=== PATIENT | male | born 1940 | race Caucasian/White ===

== ENCOUNTER → 2018-01-05 | Outpatient (CLI) | payer MEDICARE ==
[2018-01-05 09:44] LABS: ALT 67 U/L (21-72); AST 53 U/L (17-59); Cholesterol 145 mg/dL (<200); HDL Cholesterol 47 mg/dL (40-60); LDL Cholesterol,Calculated 80 mg/dL (0-99); Triglycerides 88 mg/dL (<150)
== END | disposition home or self-care (01) ==
LOC: LABWHC1 08:21
PROVIDERS: ATTEND Internal Medicine Cardiovascular Disease
DX: E78.2 Mixed hyperlipidemia (principal)
CPT/HCPCS: 36415; 80061; 84450; 84460

== ENCOUNTER 2018-04-04 09:31 | Inpatient (IN) | payer MEDICARE ==
[2018-04-04] MEDS ORDERED: SODIUM CHLORIDE 0.9% 1,000 ML IV ONE (09:46)
--- NOTE | 2018-04-04 09:50 | ED ---
General Adult HPI - General Stated complaint: ALTERED Time Seen by Provider: 04/04/18 09:36 Source: patient, EMS, RN notes reviewed Mode of arrival: EMS Limitations: no limitations - History of Present Illness Initial comments: Patient is a pleasant 77-year-old male presenting to the emergency department with concerns for not feeling well. Patient states he felt warm and had a headache since last night. Patient states symptoms continued this morning. Patient states when he got outside in the cold air he felt better and is now currently symptom-free. Patient has no complaints at this time. Patient is unclear whether or not he could've had a fever. Patient states his daughter believes that he may have. No cough or dyspnea. No abdominal pain. No dysuria. No upper respiratory symptoms. - Related Data Allergies Allergy/AdvReac Type Severity Reaction Status Date / Time No Known Allergies Allergy Verified 04/04/18 11:11 Review of Systems ROS Statement: Those systems with pertinent positive or pertinent negative responses have been documented in the HPI. ROS Other: All systems not noted in ROS Statement are negative. Constitutional: Reports: as per HPI Eyes: Denies: eye pain ENT: Denies: ear pain Respiratory: Denies: cough, dyspnea Cardiovascular: Denies: chest pain Endocrine: Denies: fatigue Gastrointestinal: Denies: abdominal pain Genitourinary: Denies: dysuria Musculoskeletal: Denies: back pain Skin: Denies: rash Neurological: Reports: as per HPI. Denies: weakness Past Medical History Past Medical History: Atrial Fibrillation, COPD, Hypertension History of Any Multi-Drug Resistant Organisms: None Reported Past Psychological History: No Psychological Hx Reported Smoking Status: Never smoker Past Alcohol Use History: None Reported Past Drug Use History: None Reported General Exam Limitations: no limitations General appearance: alert, in no apparent distress Head exam: Present: atraumatic Eye exam: Present: normal appearance, PERRL, EOMI. Absent: nystagmus ENT exam: Present: normal oropharynx Neck exam: Present: normal inspection Respiratory exam: Present: rhonchi Cardiovascular Exam: Present: irregular rhythm GI/Abdominal exam: Present: soft. Absent: tenderness Extremities exam: Present: normal inspection Neurological exam: Present: alert, CN II-XII intact. Absent: motor sensory deficit Expanded Neurological exam: Present: protecting the airway Patient oriented to: Present: person, place. Absent: time Speech: Present: fluid speech Cranial nerves: EOM's Intact: Normal Sensory exam: Upper Extremity Light Touch: Normal, Lower Extremity Light Touch: Normal Motor strength exam: RUE: 5, LUE: 5, RLE: 5, LLE: 5 Eye Response: (4) open spontaneously Motor Response: (6) obeys commands Verbal Response: (4) confused conversation Psychiatric exam: Present: normal affect, normal mood Skin exam: Present: normal color Course Vital Signs 04/04/18 09:45 Temperature 100.8 F H Pulse Rate 95 Respiratory 18 Rate Blood Pressure 100/67 O2 Sat by Pulse 94 L Oximetry EKG Findings - EKG Comments: EKG Findings:: A. fib with a rate of 107. QRS 82. QT 348. QTC 464. Left axis. Normal QRS. No acute ST change. Medical Decision Making - Medical Decision Making Patient does meet sepsis criteria diagnosed at 11:11 AM. Blood culture and lactic acid have been ordered. IV antibiotics will be ordered. Patient reevaluated. Patient and family updated. Case was discussed in detail with Dr. Solomon, who will admit for Dr. Lozoya. - Lab Data Result diagrams: 04/04/18 10:06 04/04/18 10:06 Lab Results 04/04/18 04/04/18 04/04/18 Range/Units 10:04 10:06 10:06 WBC 22.1 H (3.8-10.6) k/uL RBC 5.21 (4.30-5.90) m/uL Hgb 15.4 (13.0-17.5) gm/dL Hct 47.5 (39.0-53.0) % MCV 91.1 (80.0-100.0) fL MCH 29.6 (25.0-35.0) pg MCHC 32.5 (31.0-37.0) g/dL RDW 13.4 (11.5-15.5) % Plt Count 208 (150-450) k/uL Neutrophils % 89 % Lymphocytes % 4 % Monocytes % 5 % Eosinophils % 1 % Basophils % 0 % Neutrophils # 19.7 H (1.3-7.7) k/uL Lymphocytes # 0.9 L (1.0-4.8) k/uL Monocytes # 1.0 (0-1.0) k/uL Eosinophils # 0.2 (0-0.7) k/uL Basophils # 0.1 (0-0.2) k/uL PT (9.0-12.0) sec INR (<1.2) APTT (22.0-30.0) sec Sodium (137-145) mmol/L Potassium (3.5-5.1) mmol/L Chloride (98-107) mmol/L Carbon Dioxide (22-30) mmol/L Anion Gap mmol/L BUN (9-20) mg/dL Creatinine (0.66-1.25) mg/dL Est GFR (CKD-EPI)AfAm (>60 ml/min/1.73 sqM) Est GFR (CKD-EPI)NonAf (>60 ml/min/1.73 sqM) Glucose (74-99) mg/dL POC Glucose (mg/dL) 115 H (75-99) mg/dL POC Glu [employer] ID Amna Schultz Plasma Lactic Acid Sacha (0.7-2.0) mmol/L Calcium (8.4-10.2) mg/dL Total Bilirubin (0.2-1.3) mg/dL AST (17-59) U/L ALT (21-72) U/L Alkaline Phosphatase (38-126) U/L Total Creatine Kinase 136 (55-170) U/L CK-MB (CK-2) 2.2 (0.0-2.4) ng/mL CK-MB (CK-2) Rel Index 1.6 Troponin I <0.012 (0.000-0.034) ng/mL Total Protein (6.3-8.2) g/dL Albumin (3.5-5.0) g/dL 04/04/18 04/04/18 04/04/18 Range/Units 10:06 10:06 10:06 WBC (3.8-10.6) k/uL RBC (4.30-5.90) m/uL Hgb (13.0-17.5) gm/dL Hct (39.0-53.0) % MCV (80.0-100.0) fL MCH (25.0-35.0) pg MCHC (31.0-37.0) g/dL RDW (11.5-15.5) % Plt Count (150-450) k/uL Neutrophils % % Lymphocytes % % Monocytes % % Eosinophils % % Basophils % % Neutrophils # (1.3-7.7) k/uL Lymphocytes # (1.0-4.8) k/uL Monocytes # (0-1.0) k/uL Eosinophils # (0-0.7) k/uL Basophils # (0-0.2) k/uL PT 10.5 (9.0-12.0) sec INR 1.1 (<1.2) APTT 22.2 (22.0-30.0) sec Sodium 141 (137-145) mmol/L Potassium 4.6 (3.5-5.1) mmol/L Chloride 107 (98-107) mmol/L Carbon Dioxide 25 (22-30) mmol/L Anion Gap 9 mmol/L BUN 23 H (9-20) mg/dL Creatinine 0.96 (0.66-1.25) mg/dL Est GFR (CKD-EPI)AfAm 88 (>60 ml/min/1.73 sqM) Est GFR (CKD-EPI)NonAf 77 (>60 ml/min/1.73 sqM) Glucose 117 H (74-99) mg/dL POC Glucose (mg/dL) (75-99) mg/dL POC Glu [employer] Charger ID Plasma Lactic Acid Sacha 1.5 (0.7-2.0) mmol/L Calcium 9.5 (8.4-10.2) mg/dL Total Bilirubin 1.4 H (0.2-1.3) mg/dL AST 32 (17-59) U/L ALT 41 (21-72) U/L Alkaline Phosphatase 85 (38-126) U/L Total Creatine Kinase (55-170) U/L CK-MB (CK-2) (0.0-2.4) ng/mL CK-MB (CK-2) Rel Index Troponin I (0.000-0.034) ng/mL Total Protein 7.9 (6.3-8.2) g/dL Albumin 4.1 (3.5-5.0) g/dL - Radiology Data Radiology results: report reviewed (Computed tomography scan of brain reveals no acute process), image reviewed (Chest x-ray concerning for patchy multifocal pneumonia.) Critical Care Time Critical Care Time: Yes Total Critical Care Time: 32 Disposition Clinical Impression: Multifocal pneumonia, Sepsis Disposition: ADMITTED IP TO THIS HOSP Is patient prescribed a controlled substance at d/c from ED?: No Referrals: Enrique Lozoya MD [Primary Care Provider] - 1-2 days Decision Time: 11:12
[2018-04-04 10:06] LABS: Glucose,Whole Blood 115 mg/dL (75-99)
[2018-04-04 10:23] LABS: Basophils # (A) 0.1 k/uL (0-0.2); Basophils % (A) 0 %; Eosinophils # (A) 0.2 k/uL (0-0.7); Eosinophils % (A) 1 %; HCT 47.5 % (39.0-53.0); HGB 15.4 gm/dL (13.0-17.5); Lymphocytes # (A) 0.9 k/uL (1.0-4.8); Lymphocytes % (A) 4 %; MCH 29.6 pg (25.0-35.0); MCHC 32.5 g/dL (31.0-37.0); MCV 91.1 fL (80.0-100.0); Mean Platelet Volume 7.6; Monocytes % (A) 5 %; Neutrophils # (A) 19.7 k/uL (1.3-7.7); Neutrophils % (A) 89 %; Platelet Count 208 k/uL (150-450); RBC 5.21 m/uL (4.30-5.90); RDW 13.4 % (11.5-15.5); WBC 22.1 k/uL (3.8-10.6)
--- NOTE | 2018-04-04 10:30 | CT ---
EXAMINATION TYPE: CT brain wo con DATE OF EXAM: 04/04/2018 COMPARISON: 07/01/2010 HISTORY: Headache with AMS CT DLP: 1126.[address] of the brain was performed. The ventricles, basal cisterns and sulci overlying the cerebral convexities demonstrate mild enlargem ent. There is no evidence for intracranial hemorrhage or sulcal effacement. There is decreased attenuation about the periventricular white matter and deep white matter of both c erebral hemispheres, compatible with chronic small vessel ischemia. Differential diagnosis does inclu de demyelination. No mass effects are seen.No midline shift. Osseous calvarium is intact. If symptoms persist consider MRI. IMPRESSION: 1. Age related atrophic and chronic small vessel ischemic change without acute intracranial process s een at this time.
--- NOTE | 2018-04-04 10:35 | XR ---
EXAMINATION TYPE: XR chest 2V DATE OF EXAM: 04/04/2018 COMPARISON: 01/04/2015 HISTORY: Altered mental status TECHNIQUE: Frontal and lateral views of the chest are obtained. FINDINGS: There are new patchy opacities within the left midlung, left lower lung and right superhil ar region. There is partial visualization of cervical fusion device. Minimal multilevel degenerative changes of the spine are noted. Cardiomediastinal silhouette is within normal limits. Generalized oss eous demineralization is noted. IMPRESSION: New multifocal patchy opacities suspicious for multifocal pneumonia.
[2018-04-04 10:36] LABS: Albumin 4.1 g/dL (3.5-5.0); Calcium 9.5 mg/dL (8.4-10.2); Potassium 4.6 mmol/L (3.5-5.1); Total Bilirubin 1.4 mg/dL (0.2-1.3); Total Protein 7.9 g/dL (6.3-8.2)
[2018-04-04 10:51] LABS: INR 1.1 (<1.2); Partial Thromboplastin Time 22.2 sec (22.0-30.0); Prothrombin Time 10.5 sec (9.0-12.0)
[2018-04-04 10:53] LABS: Creatine Kinase 136 U/L (55-170)
[2018-04-04 11:09] LABS: Creatine Kinase MB 2.2 ng/mL (0.0-2.4); Troponin I <0.012 ng/mL (0.000-0.034)
[2018-04-04] MEDS ORDERED: PIPERACILLIN-TAZOBACTAM 3.375 GM in DEXTROSE/WATER 1 50ML.BAG IVPB STA (11:13)
[2018-04-04] MEDS ORDERED: PNEUMONIA PROTOCOL UTILIZED 1 EACH MISC PO PRN (11:13)
[2018-04-04] MEDS ORDERED: IPRATROPIUM-ALBUTEROL 3 ML NEB INHALATION PRN (11:13)
[2018-04-04] MEDS ORDERED: LEVOFLOXACIN 750MG-D5W PMX 750 MG in DEXTROSE/WATER 1 150ML.BAG IVPB STA (11:13)
[2018-04-04] MEDS: SODIUM CHLORIDE 0.9% 1,000 ML IV SCH ×3 (11:24→23:48)
[2018-04-04] MEDS ORDERED: SODIUM CHLORIDE 0.9% 1,000 ML IV STA ×2 (12:11)
[2018-04-04] MEDS ORDERED: SODIUM CHLORIDE 0.9% 500 ML 750 ML IV STA (12:11)
[2018-04-04] MEDS ORDERED: ACETAMINOPHEN TAB 325 MG TAB PO PRN (12:12)
[2018-04-04] MEDS ORDERED: ACETAMINOPHEN TAB 325 MG TAB PO STA (12:12)
--- NOTE | 2018-04-04 16:59 | P.CNPUL ---
History of Present Illness Consult date: 04/04/18 Reason for consult: COPD, pneumonia History of present illness: 77-year-old male patient, known history of COPD , coronary artery disease, chronic atrial fibrillation and hypertension, presented to the burst department feeling sick, not feeling well, feeling warm and having headaches and generalized weakness and altered mental status.. This symptoms started approximately 24-48 hours prior to him coming to the hospital. The patient denies having any significant cough or shortness of breath. No nausea. No vomiting. No abdominal pain. The burst department, the patient had temperature 100.8. He was slightly tachycardic with a heart rate of 95. Blood pressure was 100/67 and his pulse ox was 94% on room air. His EKG showed A. fib rhythm. White cell count was 22,000. Lactic acid level was at 1.5. Troponins was negative. Chest x-ray showed patchy but the pulmonary infiltrates mainly in the lingular segment in the right suprahilar area. Based on these findings, the patient was diagnosed having bilateral pneumonia and he was admitted to the hospital for IV antibiotics and the patient was given a combination of Levaquin and Zosyn. The patient currently is on room air with pulse ox of 97%. Heart rate is improved and is down to 80, A. fib rhythm and is breathing comfortably. CAT scan of the brain was also done for symptoms of headache and the patient was found to have age-related atrophy and small vessel ischemic changes of any acute abnormalities. In terms of his COPD, the patient is been followed up by Dr. Hatch on an outpatient basis. The patient is quite severe with an FEV1 of 45% of predicted based on a spirometer this was done in January 2015. He has been maintained on Breo Ellipta 1 inhalation a day. He also uses albuterol rescue inhaler when necessary. No recurrent pneumonias. No reported aspiration. Review of Systems Constitutional: Denies weight loss, denies fatigue, no night sweats, no fever, no chills. Cardiovascular: Denies palpitations, denied chest pain or chest pressure, denies any edema. GI: Denies nausea vomiting abdominal pain diarrhea or constipation. Genitourinary: Denies dysuria, frequency, or urgency. Neurologic: Denies weakness, confusion, dizziness, or numbness. Musculoskeletal: Denies weakness arthralgia or myalgia Skin: Denies any skin lesions or rashes. Endocrine: No polydipsia, no polyuria, no heat or cold sensitivity. Pulmonary: No cough wheezing or shortness of breath Psychiatric: No symptoms of active depression. Hematologic: No symptoms of clotting bleeding or bruising. Past Medical History Past Medical History: Atrial Fibrillation, Cancer, COPD, Hypertension Additional Past Medical History / Comment(s): COPD with an FEV1 of 45% of predicted, chronic atrial fibrillation, skin cancer involving the left cheek resected surgically, chronic back pain, chronic neck pain with radiculopathy and numbness and tingling involving the right upper extremity and the hand and the lower extremities, varicose veins bilaterally, hypertension, hyperlipidemia , history of childhood left eye injury with limited vision involving the left eye. 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 Past Anesthesia/Blood Transfusion Reactions: No Reported Reaction Smoking Status: Former smoker - Past Family History Father Additional Family Medical History / Comment(s): Father was a drinker. He at the age of 80yrs. Mother Family Medical History: No Reported History Additional Family Medical History / Comment(s): Mother was healthy and lived to b90yrs old. Daughter(s) Family Medical History: Cancer Additional Family Medical History / Comment(s): Nely had breast cancer. Brother(s) Family Medical History: Cancer Additional Family Medical History / Comment(s): Brother had melanoma skin cancer. Sister(s) Family Medical History: Cancer Additional Family Medical History / Comment(s): Sister had melanoma skin cancer. Medications and Allergies Home Medications Medication Instructions Recorded Confirmed Type Diltiazem HCl [Diltiazem 24Hr ER] 120 mg PO DAILY 04/04/18 04/04/18 History Eye Vitamin (Unknown) 1 tab PO AC-BID 04/04/18 04/04/18 History Fluticasone/Vilanterol [Breo 1 puff PO RT-DAILY 04/04/18 04/04/18 History Ellipta 200-25 Mcg INH] Lisinopril [Zestril] 10 mg PO BID 04/04/18 04/04/18 History Warfarin Sodium 5 mg PO TUTHSA 04/04/18 04/04/18 History Warfarin Sodium 7.5 mg PO SUMOWEFR 04/04/18 04/04/18 History Allergies Allergy/AdvReac Type Severity Reaction Status Date / Time No Known Allergies Allergy Verified 04/04/18 11:11 Physical Exam Vitals: Vital Signs Temp Pulse Resp BP Pulse Ox 04/04/18 15:00 80 18 115/69 97 04/04/18 14:30 16 111/77 98 04/04/18 14:00 99 16 117/70 98 04/04/18 13:30 98 18 96 04/04/18 13:05 110 H 18 111/97 97 04/04/18 13:00 100 18 106/62 97 04/04/18 12:04 105 H 18 98/59 98 04/04/18 12:00 98 18 85/57 97 04/04/18 11:42 98 18 96/49 97 04/04/18 11:33 99.0 F 04/04/18 11:13 109 H 18 110/70 98 04/04/18 09:45 100.8 F H 95 18 100/67 94 L Intake and Output 04/04/18 04/04/18 04/04/18 06:59 14:59 22:59 Other: Weight 90.718 kg Appearance, comfortable, not in acute respiratory distress HEENT: Anicteric sclerae, pink and moist conjunctivae. Extraocular movements intact, pupils are reactive to light they are round and equal. External inspection of ears and nose showed normal mucosa. Oral mucosa, soft and hard palate tongue and posterior pharynx are intact. Neck: Supple no neck masses, no JVD, no thyroid enlargement, no adenopathy. Lungs: Symmetrical expansion, clear breath sounds bilaterally, no rhonchi and no wheezes. CVS:irregular irregular rhythm, normal S1 and S2, no gallops, no murmur, no rubs. Abdomen: Soft, nontender, no megaly, no rebound, no guarding, positive bowel sounds. Extremities: No clubbing, no edema, no cyanosis, 2+ pulses in upper and lower extremities. Musculoskeletal: Muscle strength and tone normal. Neurologic: Alert and oriented 3, normal affect, no focal neurologic deficits. Psychiatric: Normal affect, normal mood, normal mental status examination. Skin: No rashes or ulcerations. Results - Laboratory Findings CBC and BMP: 10/25/18 10:06 04/04/18 10:06 PT/INR, D-dimer PT 10.5 sec (9.0-12.0) 04/04/18 10:06 INR 1.1 (<1.2) 04/04/18 10:06 Abnormal lab findings: Abnormal Labs 04/04/18 04/04/18 04/04/18 10:04 10:06 10:06 WBC 22.1 H Neutrophils # 19.7 H Lymphocytes # 0.9 L BUN 23 H Glucose 117 H POC Glucose (mg/dL) 115 H Total Bilirubin 1.4 H - Diagnostic Findings Chest x-ray: image reviewed Assessment and Plan Plan: Assessment 1 acute bilateral pneumonia involving the left midlung and right suprahilar area. This is a community-acquired pneumonia likely the patient with known history of COPD. This patient presented with nonspecific symptoms of altered mentation and generalized weakness and fevers. We are most likely dealing with a extrapulmonary physician of a pneumonia. No other obvious source of infection at this point in time. Mentation is improved. Hemodynamically stable. 2 COPD, severe at baseline with an FEV1 of 45% of predicted 3 acute leukocytosis secondary to above 4 acute febrile illness secondary to above 5 Hyperlipidemia 6 chronic atrial fibrillation, rate controlled and the patient is on warfarin with a subtherapeutic PT/INR 7 hypertension 8 skin cancers Plan Continue IV fluids. Continue current antibiotic coverage. Obtain sputum Gram stain and culture. Obtain blood culture. DuoNeb nebulized treatments around the clock. Resume outpatient evaluation with warfarin knowing that the patient' s PT/INR is subtherapeutic. We'll continue to follow.
[2018-04-04] MEDS ORDERED: WARFARIN 5 MG TAB PO SCH (18:00)
[2018-04-04] MEDS: PIPERACILLIN-TAZOBACTAM 3.375 GM in DEXTROSE/WATER 1 50ML.BAG IVPB SCH ×2 (19:45→23:53)
[2018-04-04 21:02] LABS: Appearance,Urine Clear (Clear); Bilirubin,Urine Negative (Negative); Blood,Urine Negative (Negative); Color,Urine Yellow; Glucose,Urine (UA) Negative (Negative); Ketones,Urine Negative (Negative); Leukocyte Esterase,Urine Negative (Negative); Nitrite,Urine Negative (Negative); Protein,Urine Trace (Negative); Specific Gravity,Urine 1.016 (1.001-1.035); Urobilinogen,Urine <2.0 mg/dL (<2.0)
[2018-04-04 21:15] LABS: Amphetamine Screen,Urine Not Detected (NotDetected); Barbiturate Screen,Urine Not Detected (NotDetected); Benzodiazepines Screen,Urine Not Detected (NotDetected); Cocaine Screen,Urine Not Detected (NotDetected); Methadone Screen, Urine Not Detected (NotDetected); Opiate Screen,Urine Not Detected (NotDetected); Oxycodone Screen, Urine Not Detected (NotDetected); Phencyclidine Screen,Urine Not Detected (NotDetected); Tricyclic Antidepressant,Urine Not Detected (NotDetected); Urn Cannabinoid Scrn Not Detected (NotDetected)
--- NOTE | 2018-04-04 23:24 | HP ---
HISTORY AND PHYSICAL DATE OF ADMISSION AND SERVICE: 04/04/2018. PRESENTING COMPLAINT: Not feeling well, tired. HISTORY OF PRESENTING COMPLAINT: A very pleasant 77-year-old patient whose chronic stable medical conditions include coronary artery disease, atrial fibrillation, hypertension. The patient had 1 or 2 days of symptoms of fever, heart rate going up, slightly confused, weak, tired, run down, feeling warm. Chest x-ray did confirm bilateral pneumonia for which she was started on IV antibiotics. 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 Bar. Also has got underlying chronic obstructive pulmonary disease. Normally able to get around the house. REVIEW OF SYSTEMS: CONSTITUTIONAL: Febrile, weak, tired. HEENT: None. RESPIRATORY: Some shortness of breath. CARDIOVASCULAR: None. GASTROINTESTINAL: None. GENITOURINARY: None. MUSCULOSKELETAL: Some pain in the joints. DERMATOLOGICAL: Scar on the left face from excision. PSYCHIATRY: Slightly forgetful. NEUROLOGIC: None. HEENT: Decreased vision in the left eye. PAST MEDICAL HISTORY: Atrial fibrillation, COPD, hypertension, atrial fibrillation, skin cancer of the left cheek resected, chronic back and neck pain with radiculopathy, varicose veins, hypertension, hyperlipidemia, decreased vision in the left eye. 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 SOCIAL HISTORY: The patient lives at home with his mentally challenged son. Per son's caregiver, son is rather functional. The patient does drive. The patient smoked for a very short period, for about 5 years, stopped in 1991. FAMILY HISTORY: Father was a drinker, at age of 80. HOME MEDICATIONS: 1. Eye vitamin 1 tablet with meals b.i.d. 2. Coumadin 5 mg on Sunday, , and Sunday and 7.5 mg on Sunday, Sunday, Sunday and Sunday. 3. Zestril 10 mg b.i.d. 4. Breo Ellipta 1 puff daily. 5. Cardizem 24 ER 120 mg p.o. daily. ALLERGIES: None. PHYSICAL EXAMINATION: VITAL SIGNS: On presentation, temperature 100.8, pulse 109, respirations 18, blood pressure 110/70, repeat of 85/57, pulse ox 98% on room air. GENERAL APPEARANCE: Average built, lying in bed, tired-appearing. EYES: Pupils are equal. Conjunctivae normal. HEENT: External appearance of ears and nose normal. Oral cavity normal. Surgical scar on the left cheek. NECK JVD not raised. Mass not palpable. LUNGS: Decreased breath sounds. Occasional crackles. CARDIOVASCULAR: First and second sounds normal. No edema. ABDOMEN: Soft, nontender. Liver and spleen not palpable. LYMPHATIC: No lymph nodes palpable in neck or axillae. PSYCHIATRY: Alert and oriented x3. Mood and affect normal. NEUROLOGICAL: Pupils equal. Cranial nerves grossly intact. Power and sensation grossly intact. INVESTIGATIONS: White count 22.1, hemoglobin 15.4, increased neutrophils, potassium 4.6, BUN 23, creatinine 0.96. Troponin less than 0.012. EKG tracing personally reviewed by me shows atrial fibrillation with a rate around 107. Chest x-ray film personally reviewed by me shows infiltrate in the left the left lung and right lower lung. ASSESSMENT: 1. Bilateral pneumonia, suspect gram-negative organism causing sepsis, present on admission. 2. Persistent atrial fibrillation, chronically on Coumadin with INR being subtherapeutic. 3. Chronic Coumadin monitoring. 4. Chronic obstructive pulmonary disease. 5. Essential hypertension. 6. 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 7. Hyperlipidemia. PLAN: Patient is started on IV Zosyn. Home medications are resumed. The patient be put on 7.5 mg Coumadin as his INR is nearly normal. In the meantime, we will also add Lovenox for bridging purposes given that he is actually in atrial fibrillation. Care was discussed with the patient. Pulmonary was consulted. MMODL / IJN: [id number] /
[2018-04-04] MEDS: ENOXAPARIN 80 MG/0.8 ML SYRINGE SQ SCH (23:48)
[2018-04-04] MEDS: LISINOPRIL 10 MG TAB PO SCH (23:48)
[2018-04-05 08:46] LABS: INR 1.4 (<1.2); Prothrombin Time 12.9 sec (9.0-12.0)
[2018-04-05] MEDS: SYMBICORT 160-4.5 MCG INHALER INHALATION SCH ×2 (08:51→21:00)
[2018-04-05] MEDS: PIPERACILLIN-TAZOBACTAM 3.375 GM in DEXTROSE/WATER 1 50ML.BAG IVPB SCH ×3 (09:17→23:19)
[2018-04-05] MEDS: DILTIAZEM CD 120 MG CAP.ER.24H PO SCH (09:18)
[2018-04-05] MEDS: LISINOPRIL 10 MG TAB PO SCH ×2 (09:19→21:24)
[2018-04-05] MEDS: ENOXAPARIN 80 MG/0.8 ML SYRINGE SQ SCH ×2 (09:19→21:24)
[2018-04-05] MEDS ORDERED: LEVOFLOXACIN 750MG-D5W PMX 750 MG in DEXTROSE/WATER 1 150ML.BAG IVPB SCH (11:00)
[2018-04-05] MEDS: SODIUM CHLORIDE 0.9% 1,000 ML IV SCH ×2 (12:27→17:58)
[2018-04-05 14:36] LABS: Basophils # (A) 0.1 k/uL (0-0.2); Basophils % (A) 1 %; Eosinophils # (A) 0.1 k/uL (0-0.7); Eosinophils % (A) 1 %; HCT 43.8 % (39.0-53.0); HGB 13.8 gm/dL (13.0-17.5); Lymphocytes # (A) 1.4 k/uL (1.0-4.8); Lymphocytes % (A) 12 %; MCH 29.4 pg (25.0-35.0); MCHC 31.6 g/dL (31.0-37.0); Mean Platelet Volume 9.2; Monocytes # (A) 0.7 k/uL (0-1.0); Monocytes % (A) 6 %; Neutrophils # (A) 9.4 k/uL (1.3-7.7); Neutrophils % (A) 80 %; Platelet Count 181 k/uL (150-450); RBC 4.72 m/uL (4.30-5.90); RDW 13.6 % (11.5-15.5); WBC 11.8 k/uL (3.8-10.6)
[2018-04-05 14:52] LABS: ALT 22 U/L (21-72); AST 43 U/L (17-59); Albumin 3.3 g/dL (3.5-5.0); Alkaline Phosphatase 74 U/L (38-126); Anion Gap 8 mmol/L; Blood Urea Nitrogen 15 mg/dL (9-20); Calcium 8.6 mg/dL (8.4-10.2); Carbon Dioxide 19 mmol/L (22-30); Chloride 113 mmol/L (98-107); Glucose 115 mg/dL (74-99); Potassium 4.3 mmol/L (3.5-5.1); Sodium 140 mmol/L (137-145); Total Bilirubin 1.4 mg/dL (0.2-1.3); Total Protein 6.7 g/dL (6.3-8.2)
--- NOTE | 2018-04-05 15:08 | P.CRDCN ---
History of Present Illness History of present illness: Mr. Rockwell is a pleasant 77-year-old male past medical history significant for persistent atrial fibrillation on mcc anticoagulation with coumadin, COPD, hypertension and dyslipidemia. He follows with Dr. Hernandez in the office. We've been asked to see him in consultation for atrial fibrillation. He presented to the hospital with symptoms of headache. He is currently being treated for pneumonia. He denies symptoms of chest pain, shortness of breath, dizziness or palpitations. Family member at the bedside said he seemed slightly confused to her lately. CT of his brain was obtained and reveals age-related atrophic and chronic small vessel changes without acute intracranial process. EKG reveals atrial fibrillation with mildly elevated ventricular response heart rate of 107. Chest x-ray reveals new multifocal patchy opacities suspicious for multifocal pneumonia Laboratory data reviewed, WBC 11.8 down from 22.1 on admission, hemoglobin 13.8 , platelets 181, INR 1.4, sodium 140, potassium 4.3, creatinine 0.57, cardiac enzymes negative 1. Current cardiac medications include diltiazem 120 mg daily, lisinopril 10 mg twice a day, Coumadin 5 mg Sunday and 7.5 mg Sunday. Most recent echocardiogram performed in the office November 2014 reveals preserved left ventricular systolic function. At the time of my exam: CONSTITUTIONAL: Denies fever. Denies chills. EYES: Denies blurred vision. Denies vision changes. Denies eye pain. EARS, NOSE, MOUTH & THROAT: Denies headache. Denies sore throat. Denies ear pain. CARDIOVASCULAR: Denies chest pain. Denies shortness of breath. Denies orthopnea. Denies PND. Denies palpitations. RESPIRATORY: Denies cough. GASTROINTESTINAL: Denies abdominal pain. Denies diarrhea. Denies constipation. Denies nausea. Denies vomiting. MUSCULOSKELETAL: Denies myalgias. INTEGUMENTARY: Denies pruitis. Denies rash. NEUROLOGIC: Denies numbness. Denies tingling. Denies weakness. PSYCHIATRIC: Denies anxiety. Denies depression. ENDOCRINE: Denies fatigue. Denies weight change. Denies polydipsia. Denies polyurina. GENITOURINARY: Denies burning, hematuria or urgency with micturation. HEMATOLOGIC: Denies history of anemia. Denies bleeding. Blood pressure 138/76 heart rate 105 afebrile maintaining oxygen saturation on room air GENERAL: This is a 77-year-old male in no apparent distress at the time of my examination. HEENT: Head is atraumatic, normocephalic. Pupils are equal, round. Sclerae anicteric. Conjunctivae are clear. Mucous membranes of the mouth are moist. Neck is supple. There is no jugular venous distention. No carotid bruit is heard. LUNGS: Clear to auscultation no wheezes, rales or rhonchi. No chest wall tenderness is noted on palpation or with deep breathing. HEART: Irregular rate and rhythm without murmurs, rubs or gallops. S1 and S2 heard. ABDOMEN: Soft, nontender. Bowel sounds are heard. No organomegaly noted. EXTREMITIES: No evidence of peripheral edema and no calf tenderness noted. VASCULAR: Radial and dorsalis pedis pulses palpated, no evidence of clubbing. NEUROLOGIC: Patient is awake, alert and oriented. ASSESSMENT Multifocal pneumonia Chronic persistent atrial fibrillation on long-term anticoagulation with Coumadin Hypertension Dyslipidemia Leukocytosis PLAN Ongoing medical management of pneumonia. Given his current state with leukocytosis and multifocal pneumonia Dr. Valencia does not recommend making any medication changes at this time. His rate has been fairly well-controlled. Follow-up with Dr. Hernandez upon discharge. Thank you kindly for this consultation. Nurse Practitioner note has been reviewed, I agree with a documented findings and plan of care. Patient was seen and examined. Past Medical History Past Medical History: Atrial Fibrillation, Cancer, COPD, Hypertension Additional Past Medical History / Comment(s): COPD with an FEV1 of 45% of predicted, chronic atrial fibrillation, skin cancer involving the left cheek resected surgically, chronic back pain, chronic neck pain with radiculopathy and numbness and tingling involving the right upper extremity and the hand and the lower extremities, varicose veins bilaterally, hypertension, hyperlipidemia , history of childhood left eye injury with limited vision involving the left eye. 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 Past Anesthesia/Blood Transfusion Reactions: No Reported Reaction Smoking Status: Former smoker - Past Family History Father Additional Family Medical History / Comment(s): Father was a drinker. He at the age of 80yrs. Mother Family Medical History: No Reported History Additional Family Medical History / Comment(s): Mother was healthy and lived to b90yrs old. Daughter(s) Family Medical History: Cancer Additional Family Medical History / Comment(s): Nely had breast cancer. Brother(s) Family Medical History: Cancer Additional Family Medical History / Comment(s): Brother had melanoma skin cancer. Sister(s) Family Medical History: Cancer Additional Family Medical History / Comment(s): Sister had melanoma skin cancer. Medications and Allergies Home Medications Medication Instructions Recorded Confirmed Type Diltiazem HCl [Diltiazem 24Hr ER] 120 mg PO DAILY 04/04/18 04/04/18 History Eye Vitamin (Unknown) 1 tab PO AC-BID 04/04/18 04/04/18 History Fluticasone/Vilanterol [Breo 1 puff PO RT-DAILY 04/04/18 04/04/18 History Ellipta 200-25 Mcg INH] Lisinopril [Zestril] 10 mg PO BID 04/04/18 04/04/18 History Warfarin Sodium 5 mg PO TUTHSA 04/04/18 04/04/18 History Warfarin Sodium 7.5 mg PO SUMOWEFR 04/04/18 04/04/18 History Allergies Allergy/AdvReac Type Severity Reaction Status Date / Time No Known Allergies Allergy Verified 04/04/18 11:11 Physical Exam Vitals: Vital Signs Temp Pulse Pulse Resp BP BP Pulse Ox 04/05/18 12:30 97 F L 105 H 16 138/76 96 04/05/18 11:13 96 04/05/18 08:00 18 04/05/18 05:29 98.1 F 92 18 119/65 94 L 04/04/18 21:48 96.4 F L 74 18 114/66 93 L 04/04/18 20:07 95 04/04/18 18:18 97.9 F 94 18 147/68 95 04/04/18 17:30 98.0 F 93 15 127/81 04/04/18 16:00 85 11 L 117/70 96 04/04/18 15:30 89 17 126/74 96 04/04/18 15:00 80 18 115/69 97 Intake and Output 04/04/18 04/05/18 04/05/18 22:59 06:59 14:59 Intake Total 1600 Balance 1600 Intake: Intake, IV Titration 1020 Amount Piperacillin-Tazobactam 3 50 .375 gm In Dextrose/Water 1 50ml.bag @ 12.5 mls/hr IVPB ONCE [facility] Rx#: [id number] Piperacillin-Tazobactam 3 50 .375 gm In Dextrose/Water 1 50ml.bag @ 12.5 mls/hr IVPB Q8HR [facility] Rx#: [id number] Sodium Chloride 0.9% 1, 680 000 ml @ 100 mls/hr IV . Q10H ONE Rx#:[id number] Sodium Chloride 0.9% 1, 240 000 ml @ 100 mls/hr IV . Q10H [facility] Rx#:[id number] Oral 580 Other: Voiding Method Toilet Toilet # Voids 2 3 3 Results 04/05/18 08:15 04/04/18 10:06 Coagulation 04/05/18 Range/Units 08:15 PT 12.9 H (9.0-12.0) sec CBC 04/05/18 Range/Units 08:15 WBC 11.8 H (3.8-10.6) k/uL RBC 4.72 (4.30-5.90) m/uL Hgb 13.8 (13.0-17.5) gm/dL Hct 43.8 (39.0-53.0) % Plt Count 181 (150-450) k/uL Current Medications Generic Name Dose Route Start Last Admin Trade Name Freq PRN Reason Stop Dose Admin Acetaminophen 650 mg 04/04/18 12:12 Tylenol Tab PO Q6HR PRN Fever and/ or Mild Pain Albuterol/Ipratropium 3 ml 04/04/18 11:13 Duoneb 0.5 Mg-3 Mg/3 Ml Soln INHALATION RT-Q4H PRN shortness of breath Budesonide/Formoterol Fumarate 2 puff 04/05/18 08:00 04/05/18 08:51 Symbicort 160-4.5 Mcg Inhaler INHALATION 2 puff RT-BID [facility]NA Administration Diltiazem HCl 120 mg 04/05/18 09:00 04/05/18 09:18 Cardizem Cd PO 120 mg DAILY [facility] Administration Enoxaparin Sodium 80 mg 04/04/18 23:00 04/05/18 09:19 Lovenox SQ 80 mg Q12HR [facility] Administration Piperacillin/Tazobactam/ 50 mls @ 12.5 mls/hr 04/04/18 16:00 04/05/18 09:17 Dextrose 3.375 gm/ IV Solution IVPB 04/14/18 16:01 12.5 mls/hr Q8HR [facility] Administration Sodium Chloride 1,000 mls @ 100 mls/hr 04/04/18 11:15 04/05/18 12:27 Saline 0.9% IV Not Given .Q10H [facility] Lisinopril 10 mg 04/04/18 22:15 04/05/18 09:19 Zestril PO 10 mg BID [facility]NA Administration Miscellaneous Information 1 each 04/04/18 11:13 Pneumonia Protocol Utilized PO ONCE PRN Per Protocol Warfarin Sodium 7.5 mg 04/05/18 18:00 Coumadin PO DAILY@1800 [facility] Intake and Output 04/04/18 04/05/18 04/05/18 22:59 06:59 14:59 Intake Total 1600 Balance 1600 Intake: Intake, IV Titration 1020 Amount Piperacillin-Tazobactam 3 50 .375 gm In Dextrose/Water 1 50ml.bag @ 12.5 mls/hr IVPB ONCE [facility] Rx#: [id number] Piperacillin-Tazobactam 3 50 .375 gm In Dextrose/Water 1 50ml.bag @ 12.5 mls/hr IVPB Q8HR [facility] Rx#: [id number] Sodium Chloride 0.9% 1, 680 000 ml @ 100 mls/hr IV . Q10H [facility] Rx#:[id number] Sodium Chloride 0.9% 1, 240 000 ml @ 100 mls/hr IV . Q10H [facility] Rx#:[id number] Oral 580 Other: Voiding Method Toilet Toilet # Voids 2 3 3 04/05/18 08:15 04/04/18 10:06
--- NOTE | 2018-04-05 15:18 | XR ---
EXAMINATION TYPE: XR chest 2V DATE OF EXAM: 04/05/2018 COMPARISON: 04/04/2018 HISTORY: Shortness of breath TECHNIQUE: Frontal and lateral views of the chest are obtained. FINDINGS: Scattered senescent parenchymal changes noted. Hyperinflation compatible with COPD. Biapical scarring persists. Mild patchy left perihilar infiltrate persists. Correlate for pneumonia. Heart size is stable. Mediastinal structures are stable and grossly unremarkable. No evidence for hilar prominence. Degenerative changes dorsal spine. IMPRESSION: 1. Mild patchy left perihilar infiltrate persists. Correlate for pneumonia.
--- NOTE | 2018-04-05 17:27 | P.PN ---
Subjective Progress Note Date: 04/05/18 77-year-old male patient, known history of COPD , coronary artery disease, chronic atrial fibrillation and hypertension, presented to the burst department feeling sick, not feeling well, feeling warm and having headaches and generalized weakness and altered mental status.. This symptoms started approximately 24-48 hours prior to him coming to the hospital. The patient denies having any significant cough or shortness of breath. No nausea. No vomiting. No abdominal pain. The burst department, the patient had temperature 100.8. He was slightly tachycardic with a heart rate of 95. Blood pressure was 100/67 and his pulse ox was 94% on room air. His EKG showed A. fib rhythm. White cell count was 22,000. Lactic acid level was at 1.5. Troponins was negative. Chest x-ray showed patchy but the pulmonary infiltrates mainly in the lingular segment in the right suprahilar area. Based on these findings, the patient was diagnosed having bilateral pneumonia and he was admitted to the hospital for IV antibiotics and the patient was given a combination of Levaquin and Zosyn. The patient currently is on room air with pulse ox of 97%. Heart rate is improved and is down to 80, A. fib rhythm and is breathing comfortably. CAT scan of the brain was also done for symptoms of headache and the patient was found to have age-related atrophy and small vessel ischemic changes of any acute abnormalities. In terms of his COPD, the patient is been followed up by Dr. Hatch on an outpatient basis. The patient is quite severe with an FEV1 of 45% of predicted based on a spirometer this was done in January 2015. He has been maintained on Breo Ellipta 1 inhalation a day. He also uses albuterol rescue inhaler when necessary. No recurrent pneumonias. No reported aspiration. Today's evaluation, the patient is being seen in follow-up on 04/05/2018. Still on antibiotic coverage. White cell count is up at 11.8. Renal function remains stable. Mental status is stable. No headache. No fever chills or night sweats. The blood cultures negative for now. Cardiology also evaluated this patient. Most recent echocardiogram from the office was within normal limits. Objective - Vital Signs Vital signs: Vital Signs Temp 97 F L 04/05/18 12:30 Pulse 105 H 04/05/18 12:30 Resp 16 04/05/18 12:30 BP 138/76 04/05/18 12:30 Pulse Ox 96 04/05/18 12:30 Intake & Output 04/04/18 04/05/18 04/05/18 18:59 06:59 18:59 Intake Total 1600 Balance 1600 Weight 90.718 kg Intake: Intake, IV Titration 1020 Amount Piperacillin-Tazobactam 3 50 .375 gm In Dextrose/Water 1 50ml.bag @ 12.5 mls/hr IVPB ONCE [facility] Rx#: [id number] Piperacillin-Tazobactam 3 50 .375 gm In Dextrose/Water 1 50ml.bag @ 12.5 mls/hr IVPB Q8HR [facility] Rx#: [id number] Sodium Chloride 0.9% 1, 680 000 ml @ 100 mls/hr IV . Q10H [facility] Rx#:[id number] Sodium Chloride 0.9% 1, 240 000 ml @ 100 mls/hr IV . Q10H [facility] Rx#:[id number] Oral 580 Other: Voiding Method Toilet Toilet # Voids 3 3 - Exam Appearance, comfortable, not in acute respiratory distress HEENT: Anicteric sclerae, pink and moist conjunctivae. Extraocular movements intact, pupils are reactive to light they are round and equal. External inspection of ears and nose showed normal mucosa. Oral mucosa, soft and hard palate tongue and posterior pharynx are intact. Neck: Supple no neck masses, no JVD, no thyroid enlargement, no adenopathy. Lungs: Symmetrical expansion, clear breath sounds bilaterally, no rhonchi and no wheezes. CVS:irregular irregular rhythm, normal S1 and S2, no gallops, no murmur, no rubs. Abdomen: Soft, nontender, no megaly, no rebound, no guarding, positive bowel sounds. Extremities: No clubbing, no edema, no cyanosis, 2+ pulses in upper and lower extremities. Musculoskeletal: Muscle strength and tone normal. Neurologic: Alert and oriented 3, normal affect, no focal neurologic deficits. Psychiatric: Normal affect, normal mood, normal mental status examination. Skin: No rashes or ulcerations. - Labs CBC & Chem 7: 04/05/18 08:15 04/05/18 08:15 Labs: Abnormal Lab Results - Last 24 Hours (Table) 04/04/18 04/05/18 04/05/18 Range/Units 20:50 08:15 08:15 WBC 11.8 H (3.8-10.6) k/uL Neutrophils # 9.4 H (1.3-7.7) k/uL PT 12.9 H (9.0-12.0) sec INR 1.4 H (<1.2) Chloride (98-107) mmol/L Carbon Dioxide (22-30) mmol/L Creatinine (0.66-1.25) mg/dL Glucose (74-99) mg/dL Total Bilirubin (0.2-1.3) mg/dL Albumin (3.5-5.0) g/dL Urine Protein Trace H (Negative) 04/05/18 Range/Units 08:15 WBC (3.8-10.6) k/uL Neutrophils # (1.3-7.7) k/uL PT (9.0-12.0) sec INR (<1.2) Chloride 113 H (98-107) mmol/L Carbon Dioxide 19 L (22-30) mmol/L Creatinine 0.57 L (0.66-1.25) mg/dL Glucose 115 H (74-99) mg/dL Total Bilirubin 1.4 H (0.2-1.3) mg/dL Albumin 3.3 L (3.5-5.0) g/dL Urine Protein (Negative) Microbiology - Last 24 Hours (Table) 04/04/18 10:06 Blood Culture - Preliminary Blood No Growth after 24 hours 04/04/18 20:50 Urine Culture - Preliminary Urine,Clean Catch Assessment and Plan Plan: Assessment 1 acute bilateral pneumonia involving the left midlung and right suprahilar area. This is a community-acquired pneumonia likely the patient with known history of COPD. This patient presented with nonspecific symptoms of altered mentation and generalized weakness and fevers. We are most likely dealing with a extrapulmonary physician of a pneumonia. No other obvious source of infection at this point in time. Mentation is improved. Hemodynamically stable. 2 COPD, severe at baseline with an FEV1 of 45% of predicted 3 acute leukocytosis secondary to above, improving 4 acute febrile illness secondary to above 5 Hyperlipidemia 6 chronic atrial fibrillation, rate controlled and the patient is on warfarin with a subtherapeutic PT/INR 7 hypertension 8 skin cancers Plan 2 new antibiotics. White cell count is improved. Repeat chest x-ray in the morning. We'll continue to follow. Cardiology is also on the case. INR is subtherapeutic and the patient is on 7.5 L of Coumadin and daily basis regarding his chronic atrial fibrillation. Rate is controlled for now.
[2018-04-05] MEDS ORDERED: WARFARIN 5 MG TAB PO SCH ×2 (18:00)
--- NOTE | 2018-04-05 21:58 | PN ---
PROGRESS NOTE DATE OF SERVICE: April 05, 2018. PRESENT COMPLAINT: Pneumonia. INTERVAL HISTORY: This patient presented with bilateral pneumonia with sepsis, atrial fibrillation, rate controlled, feels better, a bit better this afternoon. Did tolerate some diet. Lying in bed. Heart rate is controlled. REVIEW OF SYSTEMS: Done for constitutional, cardiovascular, GI, pulmonary; relevant findings as above. CURRENT MEDICATIONS: Reviewed that include IV Zosyn and Lovenox. EXAMINATION: VITAL SIGNS: Afebrile, pulse 105, respiration 16, blood pressure 130/76, pulse ox 96% on room air. GENERAL APPEARANCE: Lying in bed, looking a shade better. EYES: Pupils are equal. Conjunctivae normal. HEENT: External appearance of nose and ears normal. Oral cavity normal. Surgical scar on the left cheek. NECK: JVD not raised. Mass not palpable. RESPIRATORY: Effort increased. LUNGS: Decreased breath sounds. Occasional crackles. CARDIOVASCULAR: 1st and 2nd sounds normal. No edema. ABDOMEN: Soft, nontender. Liver and spleen not palpable. PSYCHIATRY: Alert and oriented x3. Mood and affect normal. INVESTIGATIONS: White count 11.8, INR 1.4, potassium 4.3, BUN 15, creatinine 0.57. Blood cultures negative. ASSESSMENT: 1. Bilateral pneumonia suspect gram-negative organism causing sepsis, present on admission with some improvement. 2. Persistent atrial fibrillation chronically on Coumadin with INR being subtherapeutic. 3. Chronic Coumadin monitoring. 4. Chronic obstructive pulmonary disease. 5. Essential hypertension. 6. 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 7. Hyperlipidemia. PLAN: Continue with current medication and treatment plan. Patient is started to respond. We will keep a close eye on the patient's INR. Go from there. MMODL / IJN: [id number] /
[2018-04-06] MEDS: SYMBICORT 160-4.5 MCG INHALER INHALATION SCH (08:29)
[2018-04-06] MEDS: SODIUM CHLORIDE 0.9% 1,000 ML IV SCH (09:47)
[2018-04-06] MEDS: DILTIAZEM CD 120 MG CAP.ER.24H PO SCH (09:48)
[2018-04-06] MEDS: PIPERACILLIN-TAZOBACTAM 3.375 GM in DEXTROSE/WATER 1 50ML.BAG IVPB SCH (09:48)
[2018-04-06] MEDS: ENOXAPARIN 80 MG/0.8 ML SYRINGE SQ SCH (09:48)
[2018-04-06] MEDS: LISINOPRIL 10 MG TAB PO SCH (09:48)
[2018-04-06 12:39] VITALS: BP 124/76; PULSE 85; RESP 16; TEMP 97.7
--- NOTE | 2018-04-06 15:05 | P.PN ---
Subjective Progress Note Date: 04/06/18 77-year-old male patient, known history of COPD , coronary artery disease, chronic atrial fibrillation and hypertension, presented to the burst department feeling sick, not feeling well, feeling warm and having headaches and generalized weakness and altered mental status.. This symptoms started approximately 24-48 hours prior to him coming to the hospital. The patient denies having any significant cough or shortness of breath. No nausea. No vomiting. No abdominal pain. The burst department, the patient had temperature 100.8. He was slightly tachycardic with a heart rate of 95. Blood pressure was 100/67 and his pulse ox was 94% on room air. His EKG showed A. fib rhythm. White cell count was 22,000. Lactic acid level was at 1.5. Troponins was negative. Chest x-ray showed patchy but the pulmonary infiltrates mainly in the lingular segment in the right suprahilar area. Based on these findings, the patient was diagnosed having bilateral pneumonia and he was admitted to the hospital for IV antibiotics and the patient was given a combination of Levaquin and Zosyn. The patient currently is on room air with pulse ox of 97%. Heart rate is improved and is down to 80, A. fib rhythm and is breathing comfortably. CAT scan of the brain was also done for symptoms of headache and the patient was found to have age-related atrophy and small vessel ischemic changes of any acute abnormalities. In terms of his COPD, the patient is been followed up by Dr. Hatch on an outpatient basis. The patient is quite severe with an FEV1 of 45% of predicted based on a spirometer this was done in January 2015. He has been maintained on Breo Ellipta 1 inhalation a day. He also uses albuterol rescue inhaler when necessary. No recurrent pneumonias. No reported aspiration. Today's evaluation, the patient is being seen in follow-up on 04/05/2018. Still on antibiotic coverage. White cell count is up at 11.8. Renal function remains stable. Mental status is stable. No headache. No fever chills or night sweats. The blood cultures negative for now. Cardiology also evaluated this patient. Most recent echocardiogram from the office was within normal limits. On 04/06/2018, the patient has no specific complaints. Resting comfortably in bed. No nausea vomiting or abdominal pain or diarrhea. White cell count has normalized. Chest x-ray was done and it showed left perihilar infiltrate which persists in the right lung findings are improved. Despite this pneumonia the patient is not having any respiratory distress. No cough or sputum production or congestion. No abdominal pain. No altered mentation. No headaches. Objective - Vital Signs Vital signs: Vital Signs Temp 97.7 F 04/06/18 12:38 Pulse 85 04/06/18 12:38 Resp 16 04/06/18 12:38 BP 124/76 04/06/18 12:38 Pulse Ox 97 04/06/18 12:38 Intake & Output 04/05/18 04/06/18 04/06/18 18:59 06:59 18:59 Intake Total 1600 1250 Balance 1600 1250 Intake: Intake, IV Titration 1020 1250 Amount Piperacillin-Tazobactam 3 50 .375 gm In Dextrose/Water 1 50ml.bag @ 12.5 mls/hr IVPB ONCE [facility] Rx#: [id number] Piperacillin-Tazobactam 3 50 100 .375 gm In Dextrose/Water 1 50ml.bag @ 12.5 mls/hr IVPB Q8HR [facility] Rx#: [id number] Sodium Chloride 0.9% 1, 680 000 ml @ 100 mls/hr IV . Q10H ONE Rx#:[id number] Sodium Chloride 0.9% 1, 240 1150 000 ml @ 100 mls/hr IV . Q10H [facility] Rx#:[id number] Oral 580 Other: Voiding Method Toilet Toilet # Voids 3 1 - Exam Appearance, comfortable, not in acute respiratory distress HEENT: Anicteric sclerae, pink and moist conjunctivae. Extraocular movements intact, pupils are reactive to light they are round and equal. External inspection of ears and nose showed normal mucosa. Oral mucosa, soft and hard palate tongue and posterior pharynx are intact. Neck: Supple no neck masses, no JVD, no thyroid enlargement, no adenopathy. Lungs: Symmetrical expansion, clear breath sounds bilaterally, no rhonchi and no wheezes. CVS:irregular irregular rhythm, normal S1 and S2, no gallops, no murmur, no rubs. Abdomen: Soft, nontender, no megaly, no rebound, no guarding, positive bowel sounds. Extremities: No clubbing, no edema, no cyanosis, 2+ pulses in upper and lower extremities. Musculoskeletal: Muscle strength and tone normal. Neurologic: Alert and oriented 3, normal affect, no focal neurologic deficits. Psychiatric: Normal affect, normal mood, normal mental status examination. Skin: No rashes or ulcerations. - Labs CBC & Chem 7: 04/05/18 08:15 04/05/18 08:15 Labs: Abnormal Lab Results - Last 24 Hours (Table) 04/05/18 Range/Units 08:15 Chloride 113 H (98-107) mmol/L Carbon Dioxide 19 L (22-30) mmol/L Creatinine 0.57 L (0.66-1.25) mg/dL Glucose 115 H (74-99) mg/dL Total Bilirubin 1.4 H (0.2-1.3) mg/dL Albumin 3.3 L (3.5-5.0) g/dL Microbiology - Last 24 Hours (Table) 04/04/18 10:06 Blood Culture - Preliminary Blood No Growth after 48 hours 04/05/18 10:00 Gram Stain - Preliminary Sputum 04/04/18 20:50 Urine Culture - Final Urine,Clean Catch Assessment and Plan Plan: Assessment 1 acute bilateral pneumonia involving the left midlung and right suprahilar area. This is a community-acquired pneumonia likely the patient with known history of COPD. This patient presented with nonspecific symptoms of altered mentation and generalized weakness and fevers. We are most likely dealing with a extrapulmonary physician of a pneumonia. No other obvious source of infection at this point in time. Mentation is improved. Hemodynamically stable. 2 COPD, severe at baseline with an FEV1 of 45% of predicted 3 acute leukocytosis secondary to above, improving 4 acute febrile illness secondary to above 5 Hyperlipidemia 6 chronic atrial fibrillation, rate controlled and the patient is on warfarin with a subtherapeutic PT/INR 7 hypertension 8 skin cancers Plan The patient will be going home on Augmentin 1 tablet twice a day for the next 5 days. Continue outpatient respiratory medication follow-up with Dr. Bar regarding pneumonia. The patient is currently on Breo Ellipta for maintenance and albuterol rescue inhaler less than is basis. Outpatient management of anticoagulation to achieve a stable PT/INR between 2 and 3.
[2018-04-06] MEDS ORDERED: WARFARIN 5 MG TAB PO SCH (18:00)
--- NOTE | 2018-04-07 09:27 | DS ---
DISCHARGE SUMMARY DATE OF ADMISSION: 04/04/2018 DATE OF DISCHARGE: 04/06/2018 FINAL DIAGNOSE: 1. Bilateral pneumonia suspect gram-negative organism causing sepsis, POA. 2. Persistent atrial fibrillation chronically on Coumadin. 3. Coumadin monitoring. 4. Chronic obstructive pulmonary disease. 5. Essential hypertension. 6. 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 7. Hyperlipidemia. HOSPITAL COURSE: This pleasant gentleman presented with pneumonia, given antibiotics. Doing much better at the time of discharge. Symptoms greatly improved. PHYSICAL EXAMINATION: Temperature 97.7, pulse 65, respiratory rate 16, blood pressure 120/76, pulse ox 97% on room air. Lungs: Improved air entry. CARDIOVASCULAR: Heart sounds irregular. LABS: White count 11.8, down from 22.1. INR was 1.4. Coumadin dose was increased. BUN 15, creatinine 0.57. CONSULTATION: Dr. Cifuentes from Pulmonary. DISCHARGE MEDICATIONS: 1. Cardizem ER 120 mg a day. 2. I-vitamin 1 tablet p.o. b.i.d. 3. Breo Ellipta 200/25 1 puff daily. 4. Zestril 10 mg p.o. b.i.d. 5. Augmentin 875 one tablet q.12; 10 tablets. 6. Coumadin 7.5 mg daily, new dose. FOLLOW UP: Dr. Bar in 1 week. Follow up with Dr. Lozoya in 3 days. The patient to have his INR checked in [address] Bar and Dr. Lozoya. MMODL / HERNANDON: [id number] /
== END 2018-04-06 14:05 | disposition home or self-care (01) | DRG 871 ==
LOC: EC 09:31 → 3NMEDONC 11:13
PROVIDERS: ADMIT Hospitalist; ATTEND Hospitalist
DX: A41.50 Gram-negative sepsis, unspecified (principal); J15.6 Pneumonia due to other Gram-negative bacteria; J44.0 Chronic obstructive pulmonary disease with (acute) lower respiratory infection; I48.2 Chronic atrial fibrillation; E78.5 Hyperlipidemia, unspecified; G89.29 Other chronic pain; M54.12 Radiculopathy, cervical region; I25.10 Atherosclerotic heart disease of native coronary artery without angina pectoris; I10 Essential (primary) hypertension; I83.93 Asymptomatic varicose veins of bilateral lower extremities; M54.2 Cervicalgia; M54.9 Dorsalgia, unspecified; H54.7 Unspecified visual loss; Z79.01 Long term (current) use of anticoagulants; Z79.51 Long term (current) use of inhaled steroids; Z79.899 Other long term (current) drug therapy; Z98.1 Arthrodesis status; Z85.828 Personal history of other malignant neoplasm of skin; Z87.891 Personal history of nicotine dependence; Z98.42 Cataract extraction status, left eye; Z98.41 Cataract extraction status, right eye; Z81.1 Family history of alcohol abuse and dependence; Z80.3 Family history of malignant neoplasm of breast; Z80.8 Family history of malignant neoplasm of other organs or systems
CPT/HCPCS: 36415; 70450; 71046; 80053; 80306; 81003; 82550; 82553; 83605; 84484; 85025; 85610; 85730; 87040; 87070; 87086; 87205; 93005; 94640; 94760; 96361; 96365; 96366; 96367; 99291

== ENCOUNTER → 2018-08-05 | Outpatient (CLI) | payer MEDICARE ==
[2018-08-05 18:37] LABS: LDL Cholesterol,Calculated 74.2 mg/dL (0.0-131.0); VLDL Calculation 13.8 mg/dL (5.00-40.00)
== END | disposition home or self-care (01) ==
LOC: LABWHC1 12:11
PROVIDERS: ATTEND Internal Medicine Cardiovascular Disease
DX: E78.2 Mixed hyperlipidemia (principal)
CPT/HCPCS: 36415; 80061; 84450; 84460

== ENCOUNTER → 2018-08-24 | Outpatient (CLI) | payer MEDICARE ==
[2018-08-24 16:31] LABS: ALT 40 U/L (10-49); AST 36 U/L (14-35)
== END | disposition home or self-care (01) ==
LOC: LABWHC1 10:25
PROVIDERS: ATTEND Internal Medicine Cardiovascular Disease
DX: E78.2 Mixed hyperlipidemia (principal)
CPT/HCPCS: 36415; 84450; 84460

== ENCOUNTER → 2019-12-24 | Outpatient (CLI) | payer MEDICARE ==
[2019-12-24 13:26] LABS: Basophils # (A) 0.1 k/uL (0-0.2); Basophils % (A) 1 %; Eosinophils # (A) 0.2 k/uL (0-0.7); Eosinophils % (A) 3 %; HCT 43.6 % (39.0-53.0); HGB 13.4 gm/dL (13.0-17.5); Lymphocytes # (A) 1.7 k/uL (1.0-4.8); Lymphocytes % (A) 21 %; MCH 28.2 pg (25.0-35.0); MCHC 30.8 g/dL (31.0-37.0); MCV 91.7 fL (80.0-100.0); Mean Platelet Volume 7.6; Monocytes # (A) 0.5 k/uL (0-1.0); Monocytes % (A) 7 %; Neutrophils # (A) 5.6 k/uL (1.3-7.7); Neutrophils % (A) 68 %; Platelet Count 303 k/uL (150-450); RBC 4.75 m/uL (4.30-5.90); RDW 14.2 % (11.5-15.5); WBC 8.3 k/uL (3.8-10.6)
[2019-12-24 13:29] LABS: African American GFR (CKD) >90 (>60 ml/min/1.73 sqM); Anion Gap 7 mmol/L; Blood Urea Nitrogen 10 mg/dL (9-20); Calcium 9.2 mg/dL (8.4-10.2); Carbon Dioxide 26 mmol/L (22-30); Chloride 105 mmol/L (98-107); Glucose 96 mg/dL (74-99); Non-African American GFR(CKD) >90 (>60 ml/min/1.73 sqM); Potassium 4.4 mmol/L (3.5-5.1); Sodium 138 mmol/L (137-145)
== END | disposition home or self-care (01) ==
LOC: LABPAT 10:29
PROVIDERS: ATTEND Urology
DX: Z01.818 Encounter for other preprocedural examination (principal); N20.0 Calculus of kidney; I10 Essential (primary) hypertension
CPT/HCPCS: 36415; 80048; 85025; 93005

== ENCOUNTER 2020-01-01 11:47 | Day surgery (SDC) | payer MEDICARE ==
--- NOTE | 2019-12-28 21:44 | P.GSHP ---
History of Present Illness H&P Date: 12/28/19 Chief Complaint: Low back pain The patient is a 79-year-old white male with an unremarkable urologic history. He has recently experienced low back pain 2 months. 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 A KUB x-ray shows a 14 mm right UPJ calculus. Alternative treatment options were reviewed with the patient in detail. He was made aware of the fact the stone clearance rates are poor following ESWL, and he instead prefers to undergo ureteroscopy with laser lithotripsy. - Constitutional Constitutional: Denies chills, Denies fever - Gastrointestinal Gastrointestinal: Denies nausea, Denies vomiting - Genitourinary (Female) Genitourinary: Denies hematuria Past Medical History Past Medical History: Atrial Fibrillation, Cancer, COPD, Hypertension Additional Past Medical History / Comment(s): COPD with an FEV1 of 45% of predicted, chronic atrial fibrillation, skin cancer involving the left cheek resected surgically, chronic back pain, chronic neck pain with radiculopathy and numbness and tingling involving the right upper extremity and the hand and the lower extremities, varicose veins bilaterally, hypertension, hyperlipidemia, history of childhood left eye injury with limited vision involving the left eye. 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 Past Anesthesia/Blood Transfusion Reactions: No Reported Reaction Past Psychological History: No Psychological Hx Reported Additional Psychological History / Comment(s): Pt resides in his home with his mentally challenged son. Pt is son's caregiver but son is highly functional. Pt drives. He has home oxygen but does not wear it. He has a nebulizer. He drives. His daughter lives next door and is very helpful. Past Alcohol Use History: None Reported Additional Past Alcohol Use History / Comment(s): Pt smoked off and on from 1976 until 1981 Past Drug Use History: None Reported - Past Family History Father Additional Family Medical History / Comment(s): Father was a drinker. He at the age of 80yrs. Mother Family Medical History: No Reported History Additional Family Medical History / Comment(s): Mother was healthy and lived to b90yrs old. Daughter(s) Family Medical History: Cancer Additional Family Medical History / Comment(s): Nely had breast cancer. Brother(s) Family Medical History: Cancer Additional Family Medical History / Comment(s): Brother had melanoma skin cancer. Sister(s) Family Medical History: Cancer Additional Family Medical History / Comment(s): Sister had melanoma skin cancer. Medications and Allergies Home Medications Medication Instructions Recorded Confirmed Type Diltiazem HCl [Diltiazem HCl 24Hr 120 mg PO DAILY 04/04/18 04/04/18 History ER (CD)] Eye Vitamin (Unknown) 1 tab PO AC-BID 04/04/18 04/04/18 History Fluticasone/Vilanterol [Breo 1 puff PO RT-DAILY 04/04/18 04/04/18 History Ellipta 200-25 Mcg INH] Lisinopril [Zestril] 10 mg PO BID 04/04/18 04/04/18 History Amoxicillin/Potassium Clav 1 tab PO Q12HR #10 tab 04/06/18 Rx [Augmentin 875-125 Tablet] Warfarin Sodium 7.5 mg PO DAILY #0 04/06/18 04/04/18 Rx Allergies Allergy/AdvReac Type Severity Reaction Status Date / Time No Known Allergies Allergy Verified 04/04/18 11:11 Surgical - Exam - General well developed, well nourished, no distress - Neck no masses, trachea midline - Respiratory normal respiratory effort, clear to auscultation - Cardiovascular Rhythm: irregularly irregular - Abdomen Abdomen: soft, non tender, no guarding, no rigid, no rebound - Genitourinary normal penis with no external lesions, testicles non-tender - Rectum Rectum: normal sphincter tone, no masses - Psychiatric oriented to time, oriented to person, oriented to place, speech is normal, memory intact Results - Imaging CT scan - abdomen: report reviewed, image reviewed Assessment and Plan (1) Calculus of kidney Status: Acute Code(s): N20.0 - CALCULUS OF KIDNEY SNOMED Code(s): 70885470 Plan: Cystoscopy, right ureteroscopy with Holmium laser lithotripsy, right ureteral stent insertion. The procedure has been reviewed in detail with the patient. He has been made aware of potential risks, which include anesthesia, bleeding, infection, and ureteral injury. He is aware of the possible need for multiple treatments.
[2019-12-29 16:39] VITALS: BMI 23.7
[~2020-01-01 11:47] MED LIST: LACTATED RINGERS 1,000 ML IV SCH; fentaNYL (PF) 50 MCG/ML 2 ML AMP IV PRN
--- NOTE | 2020-01-01 12:15 | XR ---
EXAMINATION TYPE: XR KUB DATE OF EXAM: 01/01/2020 COMPARISON: NONE HISTORY: Right renal calculus previa TECHNIQUE: One view abdominal series FINDINGS: The osseous structures are intact. The bowel gas pattern is nonspecific. There is a large right blanka l pelvic calcification measuring 1.3 x 8.5 mm in craniocaudal transvaginal Hypertrophic and degenerative change of the spine. Changes of bilateral sacroiliitis. Arthropathy of the hips. Subsegmental changes involving the lung bases.. IMPRESSION: 1. Large right renal pelvic calcification.
[2020-01-01] MEDS ORDERED: ONDANSETRON 4 MG/2 ML VIAL ONE (12:57)
[2020-01-01] MEDS ORDERED: ONDANSETRON 4 MG/2 ML VIAL IVP ONE ×2 (13:02→15:50)
[2020-01-01] MEDS ORDERED: DEXAMETHASONE SOD PHOSPHATE 4 MG/ML 1 ML VIAL IVP ONE (13:02)
[2020-01-01] MEDS ORDERED: LIDOCAINE 1% (10MG/ML) FOR IV START INTRADERMA ONE (13:02)
[2020-01-01 13:41] LABS: Prothrombin Time 10.8 sec (9.0-12.0)
[2020-01-01] MEDS ORDERED: MIDAZOLAM 2 MG/2 ML VIAL ONE (13:48)
[2020-01-01] MEDS ORDERED: PHENYLEPHRINE-0.9% NACL SYG 1 MG/10 ML SYRINGE ONE (13:48)
[2020-01-01] MEDS ORDERED: LIDOCAINE 1% INJ 10MG/ML (20 ML MDV) ONE (13:48)
[2020-01-01] MEDS ORDERED: PROPOFOL 10 MG/ML 20 ML VIAL IV ONE (13:48)
[2020-01-01] MEDS ORDERED: DILTIAZEM 100 MG VIAL.PORT IV ONE (13:48)
--- NOTE | 2020-01-01 15:44 | FL ---
EXAMINATION TYPE: FL guidance operating room DATE OF EXAM: 01/01/2020 HISTORY: Fluoroscopy time 19 seconds of fluoroscopy provided. IMPRESSION: 1. Fluoroscopy time.
[2020-01-01 15:45] VITALS: TEMP 97
--- NOTE | 2020-01-01 15:50 | P.OP ---
Date of Procedure: 01/01/20 Preoperative Diagnosis: Right renal calculi Postoperative Diagnosis: Same Procedure(s) Performed: Cystoscopy, right ureteroscopy with Holmium laser lithotripsy, right ureteral stent insertion Anesthesia: MARILEEA Surgeon: Bjorn Hodges Estimated Blood Loss (ml): 20 IV fluids (ml): 800 Pathology: none sent Condition: stable Disposition: PACU Indications for Procedure: The patient is a 79-year-old white male with an unremarkable urologic history. He has recently experienced low back pain 2 months. 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 A KUB x-ray shows a 14 mm right UPJ calculus. Alternative treatment options were reviewed with the patient in detail. He was made aware of the fact the stone clearance rates are poor following ESWL, and he instead prefers to undergo ureteroscopy with laser lithotripsy. Operative Findings: Large right renal pelvic calculus Description of Procedure: The patient was taken to the operating room and placed in the dorsolithotomy position, with legs supported in Yifan stirrups. The external genitalia was prepped and draped sterilely. The 30 lens was used to introduce the 21-[place] Quintana cystoscopic sheath through the urethra and into the bladder under direct vision. The prostatic urethra showed evidence of mild lateral lobe enlargement, along with a high median bar. The bladder was examined in its entirety. Both ureteral orifices were normal anatomic location and configuration, and clear urine effluxed from both. No tumors or foreign bodies were seen. A 0.038 inch Glidewire was passed through the cystoscope. The right ureteral orifice was cannulated, and the Glidewire was advanced up to the right renal pelvis. The cystoscope was removed, and an 11/13-[place]ian ureteral access catheter was passed over the wire, up to the proximal ureter. The [place] flexible ureteroscope was passed through the ureteral access catheter sheath and advanced under direct vision up to the calculus. The 272 micron Holmium laser probe was passed through the ureteroscope, and lithotripsy was performed. The majority of the procedure was performed utilizing a dusting mode, but ultimately a fragmenting mode was used. Considerable dust passed through the ureteral access catheter sheath. There were considerable residual calculus fragments within the renal pelvis, but these were made very small using a popcorning technique. The ureteroscope was removed. The Glidewire was passed through the ureteral access catheter sheath, which was then removed. The Glidewire was backloaded into the cystoscope, which was passed into the bladder. A 26 cm, 6-[place]ian double-J ureteral stent was placed over the wire. Proper stent positioning was verified fluoroscopically and endoscopically. The bladder was emptied and the cystoscope removed. The patient tolerated the procedure well and was taken to the recovery room in stable condition.
[2020-01-01] MEDS ORDERED: LACTATED RINGERS 1,000 ML IV ONE (16:10)
[2020-01-01 17:00] VITALS: BP 135/82; PULSE 79; RESP 20
== END 2020-01-01 17:39 | disposition home or self-care (01) ==
LOC: OR 11:47
PROVIDERS: ATTEND Urology
DX: N20.0 Calculus of kidney (principal); N20.2 Calculus of kidney with calculus of ureter; Q63.1 Lobulated, fused and horseshoe kidney; J44.9 Chronic obstructive pulmonary disease, unspecified; G89.29 Other chronic pain; M54.2 Cervicalgia; M54.9 Dorsalgia, unspecified; M54.10 Radiculopathy, site unspecified; I10 Essential (primary) hypertension; I48.20 Chronic atrial fibrillation, unspecified; Z85.828 Personal history of other malignant neoplasm of skin; I83.90 Asymptomatic varicose veins of unspecified lower extremity; Z91.14 Patient's other noncompliance with medication regimen; E78.5 Hyperlipidemia, unspecified; H57.89 Other specified disorders of eye and adnexa; Z98.1 Arthrodesis status; Z98.42 Cataract extraction status, left eye; Z98.41 Cataract extraction status, right eye; Z98.890 Other specified postprocedural states; Z97.2 Presence of dental prosthetic device (complete) (partial); Z87.891 Personal history of nicotine dependence; Z80.3 Family history of malignant neoplasm of breast; Z80.8 Family history of malignant neoplasm of other organs or systems; Z79.01 Long term (current) use of anticoagulants; Z79.51 Long term (current) use of inhaled steroids; Z79.899 Other long term (current) drug therapy
CPT/HCPCS: 85610; 74018; 52356; C2625; C1769; J2250; J1100; J0690; J2405; J2001; J2370; J2704

== ENCOUNTER → 2020-01-22 | Outpatient (CLI) | payer MEDICARE | END | disposition home or self-care (01) | LOC: LABPAT 09:06 | PROVIDERS: ATTEND Urology | DX: Z01.818 Encounter for other preprocedural examination (principal); N20.0 Calculus of kidney | CPT/HCPCS: 36415; 80048; 85025 ==

== ENCOUNTER 2020-01-29 07:12 | Day surgery (SDC) | payer MEDICARE ==
--- NOTE | 2020-01-11 18:03 | P.GSHP ---
History of Present Illness H&P Date: 01/11/20 Chief Complaint: Low back pain The patient is a 79-year-old white male with an unremarkable urologic history. He has recently experienced low back pain 2 months. 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 A KUB x-ray shows a 14 mm right UPJ calculus. Alternative treatment options were reviewed with the patient in detail. He was made aware of the fact the stone clearance rates are poor following ESWL, and he instead chose to undergo ureteroscopy with laser lithotripsy. This was performed 01/01/2020 and the renal pelvic calculus fragmented well. However, it was quite dense. He now comes for right ureteral stent removal. Ureteroscopy is to be performed, with removal of any residual calculi. - Constitutional Constitutional: Denies chills, Denies fever - Genitourinary (Female) Genitourinary: Denies dysuria, Denies hematuria - Musculoskeletal Musculoskeletal: Reports low back pain Past Medical History Past Medical History: Atrial Fibrillation, Cancer, COPD, Hypertension Additional Past Medical History / Comment(s): COPD with an FEV1 of 45% of predicted, chronic atrial fibrillation, skin cancer involving the left cheek resected surgically, chronic back pain, chronic neck pain with radiculopathy and numbness and tingling involving the right upper extremity and the hand and the lower extremities, varicose veins bilaterally, hypertension, hyperlipidemia, history of childhood left eye injury with limited vision involving the left eye. 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 Past Anesthesia/Blood Transfusion Reactions: No Reported Reaction Past Psychological History: No Psychological Hx Reported Past Alcohol Use History: None Reported Additional Past Alcohol Use History / Comment(s): Pt smoked off and on from 1976 until 1981 Past Drug Use History: None Reported - Past Family History Father Additional Family Medical History / Comment(s): Father was a drinker. He at the age of 80yrs. Mother Family Medical History: No Reported History Additional Family Medical History / Comment(s): Mother was healthy and lived to b90yrs old. Daughter(s) Family Medical History: Cancer Additional Family Medical History / Comment(s): Nely had breast cancer. Brother(s) Family Medical History: Cancer Additional Family Medical History / Comment(s): Brother had melanoma skin cancer. Sister(s) Family Medical History: Cancer Additional Family Medical History / Comment(s): Sister had melanoma skin cancer. Medications and Allergies Home Medications Medication Instructions Recorded Confirmed Type Diltiazem HCl [Diltiazem HCl 24Hr 120 mg PO DAILY 04/04/18 12/29/19 History ER (CD)] Fluticasone/Vilanterol [Breo 1 puff PO RT-DAILY 04/04/18 12/29/19 History Ellipta 200-25 Mcg INH] lisinopriL [Zestril] 10 mg PO BID 04/04/18 12/29/19 History Acetaminophen Tab [Tylenol] 325 - 650 mg PO DIRECTED PRN 12/29/19 12/29/19 History Barboza Eye Vitamin & Mineral 1 tab PO BID 12/29/19 History Simvastatin [Zocor] 20 mg PO HS 12/29/19 12/29/19 History Warfarin Sodium 5 mg PO SUMOWETHFR 12/29/19 12/29/19 History Warfarin [Coumadin] 7.5 mg PO TUSA 12/29/19 12/29/19 History Allergies Allergy/AdvReac Type Severity Reaction Status Date / Time No Known Allergies Allergy Verified 01/01/20 12:32 Surgical - Exam - General well developed, well nourished, no distress - Respiratory normal respiratory effort, clear to auscultation - Cardiovascular Rhythm: irregularly irregular - Abdomen Abdomen: soft, non tender, no guarding, no rigid, no rebound - Genitourinary normal penis with no external lesions, testicles present - Psychiatric oriented to time, oriented to person, oriented to place, speech is normal, memory intact Results - Imaging CT scan - abdomen: report reviewed, image reviewed Assessment and Plan (1) Calculus of kidney Status: Acute Code(s): N20.0 - CALCULUS OF KIDNEY SNOMED Code(s): 46159410 Plan: Cystoscopy, right ureteral stent removal, right ureteroscopy with Holmium laser lithotripsy and/or stone basketing to remove any residual calculus fragments. The patient is aware of potential risks, which include anesthesia, bleeding, infection, and ureteral injury.
[2020-01-22 09:28] LABS: Basophils # (A) 0.1 k/uL (0-0.2); Basophils % (A) 1 %; Eosinophils # (A) 0.4 k/uL (0-0.7); Eosinophils % (A) 4 %; HCT 46.5 % (39.0-53.0); HGB 14.3 gm/dL (13.0-17.5); Hypochromasia Slight; Lymphocytes # (A) 2.6 k/uL (1.0-4.8); Lymphocytes % (A) 25 %; MCH 29.1 pg (25.0-35.0); MCHC 30.8 g/dL (31.0-37.0); MCV 94.6 fL (80.0-100.0); Mean Platelet Volume 7.6; Monocytes # (A) 0.6 k/uL (0-1.0); Monocytes % (A) 6 %; Neutrophils # (A) 6.2 k/uL (1.3-7.7); Neutrophils % (A) 61 %; Platelet Count 263 k/uL (150-450); RBC 4.91 m/uL (4.30-5.90); RDW 13.9 % (11.5-15.5); WBC 10.1 k/uL (3.8-10.6)
[2020-01-22 09:41] LABS: African American GFR (CKD) >90 (>60 ml/min/1.73 sqM); Anion Gap 8 mmol/L; Blood Urea Nitrogen 16 mg/dL (9-20); Calcium 9.2 mg/dL (8.4-10.2); Carbon Dioxide 23 mmol/L (22-30); Chloride 106 mmol/L (98-107); Glucose 109 mg/dL (74-99); Non-African American GFR(CKD) >90 (>60 ml/min/1.73 sqM); Potassium 4.7 mmol/L (3.5-5.1); Sodium 137 mmol/L (137-145)
[2020-01-26 11:02] VITALS: BMI 23.1
[~2020-01-29 07:12] MED LIST changes: +DEXAMETHASONE SOD PHOSPHATE 10 MG/ML 1 ML VIAL IV ONE; +HYDROmorphone 0.5 MG/0.5 ML SYRINGE IVP PRN; +ONDANSETRON 4 MG/2 ML VIAL IVP ONE; -fentaNYL (PF) 50 MCG/ML 2 ML AMP IV PRN
--- NOTE | 2020-01-29 07:31 | XR ---
EXAMINATION TYPE: XR KUB DATE OF EXAM: 01/29/2020 COMPARISON: 01/01/2020 HISTORY: Renal calculus TECHNIQUE: One view abdominal series FINDINGS: The osseous structures are intact. The bowel gas pattern is nonspecific. Hypertrophic and degenerati ve changes spine. Arthropathy of the hips. Chronic compression deformity at the thoracolumbar junctio n. There now is a double-J ureteral stent. There is a 2 mm calcification within the pelvis on the right overlying the stent suspicious for calculus within the ureter. There is apparent resolution of the ri ght-sided no pelvic calcification. No suspicious calcifications on the left. IMPRESSION: 1. Interval resolution of right renal pelvic calcification with findings suspicious for a 2 mm distal right ureteral calculus overlying the ureteral stent.
[2020-01-29 07:48] VITALS: RESP 16; TEMP 97
[2020-01-29] MEDS ORDERED: ONDANSETRON 4 MG/2 ML VIAL ONE (08:01)
[2020-01-29 08:12] LABS: INR 1.1 (<1.2)
[2020-01-29] MEDS ORDERED: PROPOFOL 10 MG/ML 20 ML VIAL IV ONE (08:50)
[2020-01-29] MEDS ORDERED: fentaNYL (PF) 50 MCG/ML 2 ML AMP ONE (08:50)
[2020-01-29] MEDS ORDERED: MIDAZOLAM 2 MG/2 ML VIAL ONE (08:50)
[2020-01-29] MEDS ORDERED: PHENYLEPHRINE-0.9% NACL SYG 1 MG/10 ML SYRINGE ONE (08:50)
--- NOTE | 2020-01-29 10:09 | P.OP ---
Date of Procedure: 01/29/20 Preoperative Diagnosis: Right ureteral calculi, right renal calculi Postoperative Diagnosis: Same Procedure(s) Performed: Cystoscopy, right ureteral stent removal, right ureteroscopy with stone basketing and Holmium laser lithotripsy Anesthesia: MARYCARMEN Surgeon: Bjorn Hodges Estimated Blood Loss (ml): 0 IV fluids (ml): 800 Pathology: other (Calculus fragments, sent for chemical analysis.) Condition: stable Disposition: PACU Indications for Procedure: The patient is a 79-year-old white male with an unremarkable urologic history. He has recently experienced low back pain 2 months. 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 A KUB x-ray shows a 14 mm right UPJ calculus. Alternative treatment options were reviewed with the patient in detail. He was made aware of the fact the stone clearance rates are poor following ESWL, and he instead chose to undergo ureteroscopy with laser lithotripsy. This was performed 01/01/2020 and the renal pelvic calculus fragmented well. However, it was quite dense. He now comes for right ureteral stent removal. Ureteroscopy is to be performed, with removal of any residual calculi. Operative Findings: Approximately 6 right distal ureteral calculus fragments, all removed via stone basketing. Multiple small calculus fragments seen within the right intrarenal collecting system, fragmented completely. Description of Procedure: The patient was taken to the operating room and placed in the dorsolithotomy position, with legs supported in Yifan stirrups. The external genitalia was prepped and draped sterilely. The 30 lens was used to introduce the 21-[place] Quintana cystoscopic sheath through the urethra and into the bladder under direct vision. The prostatic urethra showed evidence of mild lateral lobe enlargement, along with a high median bar. The distal end of the right ureteral stent was grasped and removed along with the cystoscope. The semirigid ureteroscope was advanced into the bladder under direct vision. The right ureteral orifice was cannulated, and the ureteroscope was slowly advanced under direct vision. Multiple calculus fragments were seen, measuring up to 3 mm in size. These were all removed using a 1.9-[place]ine nitinol basket, and the fragments were saved and sent for chemical analysis. A 0.038 inch [place] wire was passed through the ureteroscope, which was then removed. An 11/13- [place] ureteral access catheter was passed over the wire, up to the proximal ureter. The [employer] flexible ureteroscope was passed through the ureteral access catheter sheath and advanced under direct vision up to the renal pelvis. Multiple small fragments were seen within the renal pelvis and various calyces. The 272 micron Holmium laser probe was passed through the ureteroscope, and lithotripsy was performed. Both fragmenting and dusting modes were used, until there were no residual calculus fragments exceeding the size of the laser fiber tip. The ureteroscope was then slowly withdrawn under direct vision. No calculus fragments were seen within the ureter, and there was no evidence of ureteral trauma. The cystoscope was passed into the bladder, to drain the bladder and remove any residual calculus fragments. The cystoscope was removed and the procedure was terminated. The patient tolerated the procedure well was taken to the recovery room in stable condition.
--- NOTE | 2020-01-29 10:17 | FL ---
EXAMINATION TYPE: FL guidance operating room DATE OF EXAM: 01/29/2020 HISTORY: Fluoroscopy time 2 seconds of fluoroscopy provided. IMPRESSION: 1. Fluoroscopy time.
[2020-01-29] MEDS ORDERED: LACTATED RINGERS 1,000 ML IV ONE (10:32)
[2020-01-29 11:08] VITALS: BP 129/77; PULSE 89
== END 2020-01-29 11:39 | disposition home or self-care (01) ==
LOC: OR 07:12
PROVIDERS: ATTEND Urology
DX: N20.2 Calculus of kidney with calculus of ureter (principal); Q63.1 Lobulated, fused and horseshoe kidney; I48.20 Chronic atrial fibrillation, unspecified; J44.9 Chronic obstructive pulmonary disease, unspecified; Z85.828 Personal history of other malignant neoplasm of skin; G89.29 Other chronic pain; M54.9 Dorsalgia, unspecified; M54.2 Cervicalgia; R20.0 Anesthesia of skin; R20.2 Paresthesia of skin; I83.93 Asymptomatic varicose veins of bilateral lower extremities; I10 Essential (primary) hypertension; E78.5 Hyperlipidemia, unspecified; H54.62 Unqualified visual loss, left eye, normal vision right eye; Z98.1 Arthrodesis status; Z98.42 Cataract extraction status, left eye; Z98.41 Cataract extraction status, right eye; Z87.891 Personal history of nicotine dependence; Z80.3 Family history of malignant neoplasm of breast; Z80.8 Family history of malignant neoplasm of other organs or systems; Z79.01 Long term (current) use of anticoagulants; Z79.51 Long term (current) use of inhaled steroids; Z79.899 Other long term (current) drug therapy
CPT/HCPCS: 85610; 82365; 74018; 52353; C1769; J2250; J0690; J3010; J2370; J2704; 36415; 80048; 85025

== ENCOUNTER 2020-06-27 03:59 | Emergency (ER) | payer MEDICARE ==
[2020-06-27 04:07] VITALS: TEMP 98
--- NOTE | 2020-06-27 04:09 | ED ---
Abdominal Pain HPI - General Chief Complaint: Abdominal Pain Stated Complaint: Kidney stone Time Seen by Provider: 06/27/20 04:09 Source: patient, EMS, RN notes reviewed, old records reviewed Mode of arrival: EMS Limitations: no limitations - History of Present Illness Initial Comments: This is an 80-year-old male DF for evaluation patient Dese for evaluation regarding to complain of abdominal pain. History of kidney stones wheezes recurrent kidney stones inserted onset last night. Patient also increased cough and congestion having difficulty with breathing. Otherwise he does have no recent travel history no sick contacts. Aside from recent history of kidney stones denies any recent hospitalizations MD Complaint: abdominal pain -: hour(s) Location: epigastric Radiation: epigastric Migration to: epigastric Severity: moderate Severity scale (1-10): 7 Quality: stabbing Consistency: constant Improves With: nothing Worsens With: nothing Context: recent surgery/procedure Associated Symptoms: nausea - Related Data Home Medications Medication Instructions Recorded Confirmed Diltiazem HCl [Diltiazem HCl 24Hr 120 mg PO DAILY 04/04/18 01/26/20 ER (CD)] Fluticasone/Vilanterol [Breo 1 puff PO RT-DAILY 04/04/18 01/26/20 Ellipta 200-25 Mcg INH] lisinopriL [Zestril] 10 mg PO BID 04/04/18 01/26/20 Acetaminophen Tab [Tylenol] 325 - 650 mg PO DIRECTED PRN 12/29/19 01/26/20 [facility] Vitamin & Mineral 1 tab PO BID 12/29/19 01/26/20 Simvastatin [Zocor] 20 mg PO HS 12/29/19 01/26/20 Warfarin Sodium 5 mg PO SUMOWETHFR 12/29/19 01/26/20 Warfarin [Coumadin] 7.5 mg PO TUSA 12/29/19 01/26/20 Allergies Allergy/AdvReac Type Severity Reaction Status Date / Time No Known Allergies Allergy Verified 06/27/20 04:07 Review of Systems ROS Statement: Those systems with pertinent positive or pertinent negative responses have been documented in the HPI. ROS Other: All systems not noted in ROS Statement are negative. Past Medical History Past Medical History: Atrial Fibrillation, Cancer, COPD, Hypertension Additional Past Medical History / Comment(s): COPD with an FEV1 of 45% of predicted, chronic atrial fibrillation, skin cancer involving the left cheek resected surgically, chronic back pain, chronic neck pain with radiculopathy and numbness and tingling involving the right upper extremity and the hand and the lower extremities, varicose veins bilaterally, hypertension, hyperlipidemia, hi story of childhood left eye injury with limited vision involving the left eye. 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 Past Anesthesia/Blood Transfusion Reactions: No Reported Reaction Past Psychological History: No Psychological Hx Reported Smoking Status: Former smoker Past Alcohol Use History: None Reported Past Drug Use History: None Reported - Past Family History Father Additional Family Medical History / Comment(s): Father was a drinker. He at the age of 80yrs. Mother Family Medical History: No Reported History Additional Family Medical History / Comment(s): Mother was healthy and lived to b90yrs old. Daughter(s) Family Medical History: Cancer Additional Family Medical History / Comment(s): Nely had breast cancer. Brother(s) Family Medical History: Cancer Additional Family Medical History / Comment(s): Brother had melanoma skin cancer. Sister(s) Family Medical History: Cancer Additional Family Medical History / Comment(s): Sister had melanoma skin cancer. General Exam Limitations: no limitations General appearance: alert, in no apparent distress Head exam: Present: atraumatic, normocephalic, normal inspection Eye exam: Present: normal appearance, PERRL, EOMI. Absent: scleral icterus, conjunctival injection, periorbital swelling ENT exam: Present: normal exam, mucous membranes moist Neck exam: Present: normal inspection. Absent: tenderness, meningismus, lymphadenopathy Respiratory exam: Present: normal lung sounds bilaterally. Absent: respiratory distress, wheezes, rales, rhonchi, stridor Cardiovascular Exam: Present: normal rhythm, tachycardia, normal heart sounds. Absent: systolic murmur, diastolic murmur, rubs, gallop, clicks GI/Abdominal exam: Present: soft, normal bowel sounds. Absent: distended, tenderness, guarding, rebound, rigid Extremities exam: Present: normal inspection, full ROM, normal capillary refill. Absent: tenderness, pedal edema, joint swelling, calf tenderness Back exam: Present: normal inspection Neurological exam: Present: alert, oriented X3, CN II-XII intact Psychiatric exam: Present: normal affect, normal mood Skin exam: Present: warm, dry, intact, normal color. Absent: rash Course Vital Signs 06/27/20 06/27/20 06/27/20 03:59 04:50 04:51 Temperature 98.0 F Pulse Rate 104 H 104 H Respiratory 18 16 Rate Blood Pressure 136/89 O2 Sat by Pulse 90 L Oximetry 06/27/20 06/27/20 06/27/20 05:06 05:11 06:50 Temperature Pulse Rate 80 104 H 74 Respiratory 18 18 Rate Blood Pressure 158/94 150/92 O2 Sat by Pulse 98 97 Oximetry 06/27/20 07:38 Temperature 98.0 F Pulse Rate 74 Respiratory 18 Rate Blood Pressure 150/92 O2 Sat by Pulse 98 Oximetry - Reevaluation(s) Reevaluation #1: Medical records reviewed Patient did request more pain medication here in the ER but is now resting comfortably Patient informed results, likely related to past kidney stones. Questions answered Patient states again he is resting comfortably and is okay for discharge Medical Decision Making - Medical Decision Making 80 male DF for evaluation of abdominal pain. Patient elevated d-dimer was given computed tomography scan of chest pelvis for abdominal pain no symptoms are improved. Kidney stones maybe recently passed in the bladder. Otherwise no acute findings patient can be discharged home - Lab Data Result diagrams: 06/27/20 04:33 06/27/20 04:33 Lab Results 06/27/20 06/27/20 06/27/20 Range/Units 04:33 04:33 04:33 WBC 9.9 (3.8-10.6) k/uL RBC 5.00 (4.30-5.90) m/uL Hgb 14.4 (13.0-17.5) gm/dL Hct 44.7 (39.0-53.0) % MCV 89.4 (80.0-100.0) fL MCH 28.9 (25.0-35.0) pg MCHC 32.3 (31.0-37.0) g/dL RDW 13.3 (11.5-15.5) % Plt Count 325 (150-450) k/uL MPV 8.2 Neutrophils % 70 % Lymphocytes % 17 % Monocytes % 7 % Eosinophils % 5 % Basophils % 1 % Neutrophils # 6.9 (1.3-7.7) k/uL Lymphocytes # 1.7 (1.0-4.8) k/uL Monocytes # 0.7 (0-1.0) k/uL Eosinophils # 0.5 (0-0.7) k/uL Basophils # 0.1 (0-0.2) k/uL PT 26.6 H (9.0-12.0) sec INR 2.8 H (<1.2) APTT 29.9 (22.0-30.0) sec D-Dimer 1.60 H (<0.60) mg/L FEU Sodium 138 (137-145) mmol/L Potassium 4.4 (3.5-5.1) mmol/L Chloride 104 (98-107) mmol/L Carbon Dioxide 28 (22-30) mmol/L Anion Gap 6 mmol/L BUN 16 (9-20) mg/dL Creatinine 0.68 (0.66-1.25) mg/dL Est GFR (CKD-EPI)AfAm >90 (>60 ml/min/1.73 sqM) Est GFR (CKD-EPI)NonAf >90 (>60 ml/min/1.73 sqM) Glucose 118 H (74-99) mg/dL Plasma Lactic Acid Sacha (0.7-2.0) mmol/L Calcium 9.0 (8.4-10.2) mg/dL Phosphorus 2.7 (2.5-4.5) mg/dL Magnesium 2.0 (1.6-2.3) mg/dL Total Bilirubin 0.7 (0.2-1.3) mg/dL AST 38 (17-59) U/L ALT 26 (4-49) U/L Alkaline Phosphatase 110 (38-126) U/L Troponin I (0.000-0.034) ng/mL NT-Pro-B Natriuret Pep pg/mL Total Protein 8.0 (6.3-8.2) g/dL Albumin 4.3 (3.5-5.0) g/dL Lipase 137 (23-300) U/L 06/27/20 06/27/20 06/27/20 Range/Units 04:33 04:33 04:33 WBC (3.8-10.6) k/uL RBC (4.30-5.90) m/uL Hgb (13.0-17.5) gm/dL Hct (39.0-53.0) % MCV (80.0-100.0) fL MCH (25.0-35.0) pg MCHC (31.0-37.0) g/dL RDW (11.5-15.5) % Plt Count (150-450) k/uL MPV Neutrophils % % Lymphocytes % % Monocytes % % Eosinophils % % Basophils % % Neutrophils # (1.3-7.7) k/uL Lymphocytes # (1.0-4.8) k/uL Monocytes # (0-1.0) k/uL Eosinophils # (0-0.7) k/uL Basophils # (0-0.2) k/uL PT (9.0-12.0) sec INR (<1.2) APTT (22.0-30.0) sec D-Dimer (<0.60) mg/L FEU Sodium (137-145) mmol/L Potassium (3.5-5.1) mmol/L Chloride (98-107) mmol/L Carbon Dioxide (22-30) mmol/L Anion Gap mmol/L BUN (9-20) mg/dL Creatinine (0.66-1.25) mg/dL Est GFR (CKD-EPI)AfAm (>60 ml/min/1.73 sqM) Est GFR (CKD-EPI)NonAf (>60 ml/min/1.73 sqM) Glucose (74-99) mg/dL Plasma Lactic Acid Sacha 1.2 (0.7-2.0) mmol/L Calcium (8.4-10.2) mg/dL Phosphorus (2.5-4.5) mg/dL Magnesium (1.6-2.3) mg/dL Total Bilirubin (0.2-1.3) mg/dL AST (17-59) U/L ALT (4-49) U/L Alkaline Phosphatase (38-126) U/L Troponin I 0.015 (0.000-0.034) ng/mL NT-Pro-B Natriuret Pep 818 pg/mL Total Protein (6.3-8.2) g/dL Albumin (3.5-5.0) g/dL Lipase (23-300) U/L - EKG Data -: EKG Interpreted by Me (EKG is A. fib 79 QRS 80 QTc 458) - Radiology Data Radiology results: report reviewed (CT chest abdomen pelvis shows possibly recently passed kidney stones), image reviewed Disposition Clinical Impression: Abdominal pain Disposition: HOME SELF-CARE Condition: Good Instructions (If sedation given, give patient instructions): Abdominal Pain (ED) Is patient prescribed a controlled substance at d/c from ED?: No Referrals: None,Stated [Primary Care Provider] - 1-2 days
[2020-06-27] MEDS ORDERED: MORPHINE SULFATE 4 MG/ML SYRINGE IV STA (04:12)
[2020-06-27] MEDS ORDERED: SODIUM CHLORIDE 0.9% 1,000 ML IV STA (04:12)
[2020-06-27] MEDS ORDERED: IPRATROPIUM-ALBUTEROL 3 ML NEB INHALATION STA (04:18)
[2020-06-27 04:42] LABS: Basophils # (A) 0.1 k/uL (0-0.2); Basophils % (A) 1 %; Eosinophils # (A) 0.5 k/uL (0-0.7); Eosinophils % (A) 5 %; HCT 44.7 % (39.0-53.0); HGB 14.4 gm/dL (13.0-17.5); Lymphocytes # (A) 1.7 k/uL (1.0-4.8); Lymphocytes % (A) 17 %; MCH 28.9 pg (25.0-35.0); MCHC 32.3 g/dL (31.0-37.0); MCV 89.4 fL (80.0-100.0); Mean Platelet Volume 8.2; Monocytes # (A) 0.7 k/uL (0-1.0); Monocytes % (A) 7 %; Neutrophils # (A) 6.9 k/uL (1.3-7.7); Neutrophils % (A) 70 %; Platelet Count 325 k/uL (150-450); RDW 13.3 % (11.5-15.5); WBC 9.9 k/uL (3.8-10.6)
[2020-06-27 04:55] LABS: African American GFR (CKD) >90 (>60 ml/min/1.73 sqM); Albumin 4.3 g/dL (3.5-5.0); Anion Gap 6 mmol/L; Carbon Dioxide 28 mmol/L (22-30); Chloride 104 mmol/L (98-107); Glucose 118 mg/dL (74-99); Lipase 137 U/L (23-300); Non-African American GFR(CKD) >90 (>60 ml/min/1.73 sqM); Phosphorus 2.7 mg/dL (2.5-4.5); Sodium 138 mmol/L (137-145); Total Bilirubin 0.7 mg/dL (0.2-1.3)
[2020-06-27 05:04] LABS: Potassium 4.4 mmol/L (3.5-5.1)
[2020-06-27 05:05] LABS: ALT 26 U/L (4-49); AST 38 U/L (17-59); Alkaline Phosphatase 110 U/L (38-126); Blood Urea Nitrogen 16 mg/dL (9-20)
[2020-06-27 05:25] LABS: INR 2.8 (<1.2); Partial Thromboplastin Time 29.9 sec (22.0-30.0); Prothrombin Time 26.6 sec (9.0-12.0)
[2020-06-27 05:27] LABS: D-Dimer 1.6 mg/L FEU (<0.60)
[2020-06-27 05:28] VITALS: RESP 18
[2020-06-27 06:54] VITALS: BP 150/92; PULSE 74
[2020-06-27] MEDS ORDERED: HYDROmorphone 1 MG/ML 1 ML SYRINGE IVP STA (06:54)
--- NOTE | 2020-06-27 07:09 | CT ---
EXAM: CT Angiography Chest With Intravenous Contrast CLINICAL HISTORY: ITS.REASON CT Reason: pain TECHNIQUE: Axial computed tomographic angiography images of the chest with intravenous contrast. CTDI is 30.1 mGy and DLP is 2044.7 mGy-cm. This CT exam was performed using one or more of the following dose reduction techniques: automated exposure control, adjustment of the mA and/or kV according to patient size, and/or use of iterative reconstruction technique. MIP reconstructed images were created and reviewed. COMPARISON: No relevant prior studies available. FINDINGS: Pulmonary arteries: No filling defects. Aorta: No thoracic aortic aneurysm. Lungs: COPD. Ill-defined 24 mm spiculated opacity in the right lower lobe. Fibronodular scarring at the lung apices. Heterogeneous groundglass opacities in the right lower lobe. Pleural space: No pneumothorax. Mild right effusion. Heart: No cardiomegaly. No pericardial effusion. Bones/joints: Mild inferior endplate compression fracture of T9 and moderate superior and inferior endplate compression fracture of T12 without retropulsion. Chronic minimal superior endplate wedging of T3, T4, and T5 vertebral bodies. Soft tissues: Unremarkable. Lymph nodes: Enlarged right hilar lymph node. IMPRESSION: 1. No pulmonary embolism. 2. Ill-defined 24 mm spiculated opacity in the right lower lobe. May represent infectious process versus neoplasm. Enlarged right hilar lymph nodes. Recommend follow-up in 3 months after appropriate treatment or recommend PET/CT. 3. Heterogeneous groundglass opacities in the right lower lobe, possibly infectious/inflammatory process versus mild edema. 4. Mild right pleural effusion. 5. COPD. 6. Age indeterminate Mild inferior endplate compression fracture of T9 and moderate superior and inferior endplate compression fracture of T12 without retropulsion.
--- NOTE | 2020-06-27 07:12 | CT ---
EXAM: CT Abdomen and Pelvis With Intravenous Contrast CLINICAL HISTORY: ITS.REASON CT Reason: pain TECHNIQUE: Axial computed tomography images of the abdomen and pelvis with intravenous contrast. CTDI is 30.1 mGy and DLP is 2044.7 mGy-cm. This CT exam was performed using one or more of the following dose reduction techniques: automated exposure control, adjustment of the mA and/or kV according to patient size, and/or use of iterative reconstruction technique. COMPARISON: No relevant prior studies available. FINDINGS: ABDOMEN: Liver: Nodular liver. Gallbladder and bile ducts: Unremarkable. Pancreas: Unremarkable. Spleen: Unremarkable. Adrenals: Unremarkable. Kidneys and ureters: No hydronephrosis. Horseshoe kidney with cysts. Stomach and bowel: No bowel obstruction. No bowel wall thickening. Colonic diverticulosis. PELVIS: Appendix: No evidence of appendicitis. Bladder: 4 mm stones layering dependently in the right bladder and also in the central bladder. Reproductive: Unremarkable. ABDOMEN and PELVIS: Intraperitoneal space: Unremarkable. Bones/joints: Age indeterminate mild superior plate fracture of T9 and moderate superior/inferior endplate fracture of T12 without retropulsion. Soft tissues: Unremarkable. Vasculature: No abdominal aortic aneurysm. Lymph nodes: No enlarged lymph nodes. IMPRESSION: 1. 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 2. Horseshoe kidney. 3. Colonic diverticulosis. 4. Age indeterminate mild superior plate fracture of T9 and moderate superior/inferior endplate fracture of T12 without retropulsion. 5. 4 mm stones layering dependently in the right bladder and also in the central bladder.
[2020-06-27] MEDS ORDERED: ACET/COD 300 MG/30 MG STARTER PACK 6 TAB BTL PO STA (07:21)
== END 2020-06-27 07:45 | disposition home or self-care (01) ==
LOC: EC 03:59
DX: R10.13 Epigastric pain (principal); R11.0 Nausea; I48.20 Chronic atrial fibrillation, unspecified; I10 Essential (primary) hypertension; J44.9 Chronic obstructive pulmonary disease, unspecified; E78.5 Hyperlipidemia, unspecified; Q63.1 Lobulated, fused and horseshoe kidney; K57.30 Diverticulosis of large intestine without perforation or abscess without bleeding; Z79.01 Long term (current) use of anticoagulants; Z79.51 Long term (current) use of inhaled steroids; Z79.899 Other long term (current) drug therapy; Z87.891 Personal history of nicotine dependence; Z85.828 Personal history of other malignant neoplasm of skin
CPT/HCPCS: 36415; 94640; 93005; 85379; 83880; 80053; 83605; 83690; 83735; 84100; 84484; 85025; 85610; 85730; 71275; 74177; 99285; 96374; 96375; 96361; J2270; J1170; Q9967

== ENCOUNTER 2020-06-30 14:27 | Inpatient (IN) | payer MEDICARE ==
[2020-06-30] MEDS ORDERED: HYDROmorphone 0.5 MG/0.5 ML SYRINGE IVP STA (14:57)
--- NOTE | 2020-06-30 15:03 | ED ---
General Adult HPI - General Chief complaint: Weakness Stated complaint: weakness Time Seen by Provider: 06/30/20 14:30 Source: patient, EMS, RN notes reviewed, old records reviewed Mode of arrival: EMS Limitations: no limitations - History of Present Illness Initial comments: This is an 80-year-old male who presents emergency Department with a past hist ory of atrial fibrillation and is on Coumadin. Patient also was told he had a suspicious mass in his lungs that he needs to have further evaluation on. Patient states for the last month she's been having abdominal pain the right and left upper quadrant that he thinks spreads up into the lower rib area. Patient states it comes and goes. Patient denies back pain. Patient denies nausea vomiting diarrhea. Patient states the he is not having any anterior pain patient denies shortness of breath. Patient denies any recent fever chills. Patient states she was in the emergency department 2 days ago and was discharged home for follow-up but he was too weak today to follow-up per patient states was unable to stand on his own because both legs are extremely weak. - Related Data Home Medications Medication Instructions Recorded Confirmed Diltiazem HCl [Diltiazem HCl 24Hr 120 mg PO DAILY 04/04/18 06/30/20 ER (CD)] Fluticasone/Vilanterol [Breo 1 puff INHALATION RT-DAILY 04/04/18 06/30/20 Ellipta 200-25 Mcg INH] lisinopriL [Zestril] 10 mg PO BID 04/04/18 06/30/20 [facility] Vitamin [facility] Mineral 1 tab PO BID 12/29/19 06/30/20 Simvastatin [Zocor] 20 mg PO HS 12/29/19 06/30/20 Warfarin Sodium 5 mg PO HS 12/29/19 06/30/20 Allergies Allergy/AdvReac Type Severity Reaction Status Date / Time No Known Allergies Allergy Verified 06/30/20 16:40 Review of Systems ROS Statement: Those systems with pertinent positive or pertinent negative responses have been documented in the HPI. ROS Other: All systems not noted in ROS Statement are negative. 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 Past Anesthesia/Blood Transfusion Reactions: No Reported Reaction Past Psychological History: No Psychological Hx Reported Smoking Status: Former smoker Past Alcohol Use History: None Reported Past Drug Use History: None Reported - Past Family History Father Additional Family Medical History / Comment(s): Father was a drinker. He at the age of 80yrs. Mother Family Medical History: No Reported History Additional Family Medical History / Comment(s): Mother was healthy and lived to b90yrs old. Daughter(s) Family Medical History: Cancer Additional Family Medical History / Comment(s): Nely had breast cancer. Brother(s) Family Medical History: Cancer Additional Family Medical History / Comment(s): Brother had melanoma skin cancer. Sister(s) Family Medical History: Cancer Additional Family Medical History / Comment(s): Sister had melanoma skin cancer. General Exam - General Exam Comments Initial Comments: GENERAL: Patient is well-developed and well-nourished. Patient is nontoxic and well- hydrated and is in mild distress. ENT: Neck is soft and supple. No significant lymphadenopathy is noted. Oropharynx is clear. Moist mucous membranes. Neck has full range of motion without elic iting any pain. EYES: The sclera were anicteric and conjunctiva were pink and moist. Extraocular movements were intact and pupils were equal round and reactive to light. Eyelids were unremarkable. PULMONARY: Unlabored respirations. Good breath sounds bilaterally. No audible rales rhonchi or wheezing was noted. CARDIOVASCULAR: There is a regular rate and rhythm without any murmurs gallops or rubs. ABDOMEN: Patient has decreased bowel sounds and tenderness in the upper abdomen across th e whole abdomen. Abdomen seems mildly distended SKIN: Skin is clear with no lesions or rashes and otherwise unremarkable. NEUROLOGIC: Patient is alert and oriented x3. Cranial nerves II through XII are grossly intact. Motor and sensory are also intact. Normal speech, volume and content. Symmetrical smile. Patient is overall weakness of arms and legs but no focal weakness MUSCULOSKELETAL: Normal extremities with adequate strength and full range of motion. No lower extremity swelling or edema. No calf tenderness. LYMPHATICS: No significant lymphadenopathy is noted PSYCHIATRIC: Normal psychiatric evaluation. Limitations: no limitations Course Vital Signs 06/30/20 06/30/20 14:33 15:31 Temperature 97.6 F Pulse Rate 93 108 H Respiratory 18 20 Rate Blood Pressure 143/98 144/86 O2 Sat by Pulse 94 L 97 Oximetry Medical Decision Making - Medical Decision Making EKG shows atrial fibrillation with rapid ventricular response at 120 bpm QRS is 88 QT interval 352 QTC is 497. Patient's EKG shows no ST segment elevation or depression. Chest x-ray and KUB show no acute abnormality to explain the patient's discomfort. I did review the CTA as well as a CT of the abdomen and pelvis. Patient continues to remain weak I did give the patient a liter of fluid because he does seem dehydrated. I spoke with Dr. Solomon he agreed to admit the patient admitted the patient wrote admitting orders. - Lab Data Result diagrams: 06/30/20 15:31 06/30/20 15:31 Lab Results 06/30/20 06/30/20 06/30/20 Range/Units 15:31 15:31 15:31 WBC 12.0 H (3.8-10.6) k/uL RBC 4.59 (4.30-5.90) m/uL Hgb 13.7 (13.0-17.5) gm/dL Hct 41.0 (39.0-53.0) % MCV 89.4 (80.0-100.0) fL MCH 29.9 (25.0-35.0) pg MCHC 33.4 (31.0-37.0) g/dL RDW 13.1 (11.5-15.5) % Plt Count 273 (150-450) k/uL MPV 7.7 Neutrophils % 81 % Lymphocytes % 9 % Monocytes % 5 % Eosinophils % 3 % Basophils % 1 % Neutrophils # 9.8 H (1.3-7.7) k/uL Lymphocytes # 1.1 (1.0-4.8) k/uL Monocytes # 0.6 (0-1.0) k/uL Eosinophils # 0.4 (0-0.7) k/uL Basophils # 0.1 (0-0.2) k/uL PT 36.1 H (9.0-12.0) sec INR 3.7 H (<1.2) APTT 36.8 H (22.0-30.0) sec Sodium (137-145) mmol/L Potassium (3.5-5.1) mmol/L Chloride (98-107) mmol/L Carbon Dioxide (22-30) mmol/L Anion Gap mmol/L BUN (9-20) mg/dL Creatinine (0.66-1.25) mg/dL Est GFR (CKD-EPI)AfAm (>60 ml/min/1.73 sqM) Est GFR (CKD-EPI)NonAf (>60 ml/min/1.73 sqM) Glucose (74-99) mg/dL Plasma Lactic Acid Sacha (0.7-2.0) mmol/L Calcium (8.4-10.2) mg/dL Total Bilirubin (0.2-1.3) mg/dL AST (17-59) U/L ALT (4-49) U/L Alkaline Phosphatase (38-126) U/L Troponin I (0.000-0.034) ng/mL Total Protein (6.3-8.2) g/dL Albumin (3.5-5.0) g/dL Amylase (30-110) U/L Lipase (23-300) U/L Urine Color Yellow Urine Appearance Clear (Clear) Urine pH 5.5 (5.0-8.0) Ur Specific [place] 1.032 (1.001-1.035) Urine Protein Trace H (Negative) Urine Glucose (UA) Negative (Negative) Urine Ketones 2+ H (Negative) Urine Blood Trace H (Negative) Urine Nitrite Negative (Negative) Urine Bilirubin Negative (Negative) Urine Urobilinogen 3.0 (<2.0) mg/dL Ur Leukocyte Esterase Negative (Negative) Urine RBC 5 (0-5) /hpf Urine WBC 1 (0-5) /hpf Ur Squamous Epith Cells <1 (0-4) /hpf Amorphous Sediment Occasional H (None) /hpf Urine Bacteria Occasional H (None) /hpf Hyaline Casts 34 H (0-2) /lpf Urine Mucus Moderate H (None) /hpf Urine Sperm Occasional H (None) /hpf 06/30/20 06/30/20 06/30/20 Range/Units 15:31 15:31 15:31 WBC (3.8-10.6) k/uL RBC (4.30-5.90) m/uL Hgb (13.0-17.5) gm/dL Hct (39.0-53.0) % MCV (80.0-100.0) fL MCH (25.0-35.0) pg MCHC (31.0-37.0) g/dL RDW (11.5-15.5) % Plt Count (150-450) k/uL MPV Neutrophils % % Lymphocytes % % Monocytes % % Eosinophils % % Basophils % % Neutrophils # (1.3-7.7) k/uL Lymphocytes # (1.0-4.8) k/uL Monocytes # (0-1.0) k/uL Eosinophils # (0-0.7) k/uL Basophils # (0-0.2) k/uL PT (9.0-12.0) sec INR (<1.2) APTT (22.0-30.0) sec Sodium 135 L (137-145) mmol/L Potassium 4.1 (3.5-5.1) mmol/L Chloride 103 (98-107) mmol/L Carbon Dioxide 27 (22-30) mmol/L Anion Gap 5 mmol/L BUN 21 H (9-20) mg/dL Creatinine 0.65 L (0.66-1.25) mg/dL Est GFR (CKD-EPI)AfAm >90 (>60 ml/min/1.73 sqM) Est GFR (CKD-EPI)NonAf >90 (>60 ml/min/1.73 sqM) Glucose 106 H (74-99) mg/dL Plasma Lactic Acid Sacha 1.7 (0.7-2.0) mmol/L Calcium 8.9 (8.4-10.2) mg/dL Total Bilirubin 1.2 (0.2-1.3) mg/dL AST 38 (17-59) U/L ALT 21 (4-49) U/L Alkaline Phosphatase 100 (38-126) U/L Troponin I <0.012 (0.000-0.034) ng/mL Total Protein 7.3 (6.3-8.2) g/dL Albumin 3.7 (3.5-5.0) g/dL Amylase 39 (30-110) U/L Lipase 69 (23-300) U/L Urine Color Urine Appearance (Clear) Urine pH (5.0-8.0) Ur Specific [place] (1.001-1.035) Urine Protein (Negative) Urine Glucose (UA) (Negative) Urine Ketones (Negative) Urine Blood (Negative) Urine Nitrite (Negative) Urine Bilirubin (Negative) Urine Urobilinogen (<2.0) mg/dL Ur Leukocyte Esterase (Negative) Urine RBC (0-5) /hpf Urine WBC (0-5) /hpf Ur Squamous Epith Cells (0-4) /hpf Amorphous Sediment (None) /hpf Urine Bacteria (None) /hpf Hyaline Casts (0-2) /lpf Urine Mucus (None) /hpf Urine Sperm (None) /hpf Disposition Clinical Impression: Atrial fibrillation with RVR, Weakness, Abdominal pain, Dehydration Disposition: ADMITTED IP TO THIS [facility] Referrals: Enrique Lozoya MD [Primary Care Provider] - 1-2 days Time of Disposition: 16:44
[2020-06-30 15:41] LABS: HGB 13.7 gm/dL (13.0-17.5); Lymphocytes % (A) 9 %; MCH 29.9 pg (25.0-35.0); MCHC 33.4 g/dL (31.0-37.0); MCV 89.4 fL (80.0-100.0); Mean Platelet Volume 7.7; Monocytes % (A) 5 %; Neutrophils % (A) 81 %; Platelet Count 273 k/uL (150-450); RBC 4.59 m/uL (4.30-5.90); RDW 13.1 % (11.5-15.5)
[2020-06-30 15:42] LABS: Basophils # (A) 0.1 k/uL (0-0.2); Basophils % (A) 1 %; Eosinophils # (A) 0.4 k/uL (0-0.7); Eosinophils % (A) 3 %; Lymphocytes # (A) 1.1 k/uL (1.0-4.8); Monocytes # (A) 0.6 k/uL (0-1.0); Neutrophils # (A) 9.8 k/uL (1.3-7.7)
[2020-06-30 15:44] LABS: Amorphous Sediment,Urine Occasional /hpf; Appearance,Urine Clear (Clear); Bacteria,Urine Occasional /hpf; Bilirubin,Urine Negative (Negative); Blood,Urine Trace (Negative); Color,Urine Yellow; Glucose,Urine (UA) Negative (Negative); Hyaline Casts,Urine 34 /lpf (0-2); Ketones,Urine 2+ (Negative); Leukocyte Esterase,Urine Negative (Negative); Mucus,Urine Moderate /hpf; Nitrite,Urine Negative (Negative); PH, Urine 5.5 (5.0-8.0); Protein,Urine Trace (Negative); RBC,Urine 5 /hpf (0-5); Specific Gravity,Urine 1.032 (1.001-1.035); Sperm,Urine Occasional /hpf; Squamous Epithelial Cell,Urine <1 /hpf (0-4); WBC,Urine 1 /hpf (0-5)
[2020-06-30 16:01] LABS: ALT 21 U/L (4-49); AST 38 U/L (17-59); African American GFR (CKD) >90 (>60 ml/min/1.73 sqM); Albumin 3.7 g/dL (3.5-5.0); Alkaline Phosphatase 100 U/L (38-126); Amylase 39 U/L (30-110); Anion Gap 5 mmol/L; Blood Urea Nitrogen 21 mg/dL (9-20); Calcium 8.9 mg/dL (8.4-10.2); Carbon Dioxide 27 mmol/L (22-30); Chloride 103 mmol/L (98-107); Glucose 106 mg/dL (74-99); Lipase 69 U/L (23-300); Non-African American GFR(CKD) >90 (>60 ml/min/1.73 sqM); Potassium 4.1 mmol/L (3.5-5.1); Sodium 135 mmol/L (137-145); Total Bilirubin 1.2 mg/dL (0.2-1.3); Total Protein 7.3 g/dL (6.3-8.2)
[2020-06-30 16:03] LABS: INR 3.7 (<1.2); Partial Thromboplastin Time 36.8 sec (22.0-30.0); Prothrombin Time 36.1 sec (9.0-12.0)
--- NOTE | 2020-06-30 16:28 | XR ---
EXAMINATION TYPE: XR chest 2V DATE OF EXAM: 06/30/2020 COMPARISON: Chest x-ray 04/05/[address] 06/27/2020 HISTORY: Chest and abdominal pain TECHNIQUE: Frontal and lateral views of the chest are obtained. FINDINGS: There is no focal air space opacity, pleural effusion, or pneumothorax seen. The cardiac silhouette size is within normal limits. There is patchy basilar density present. The osseous struct ures are remarkable for wedge compression deformity near the thoracic lumbar junction, likely chronic , is resulting kyphosis. Emphysematous changes are present within the lungs, there is pulmonary fibrosis, interstitial change as on prior CT. Postop change noted the cervical spine. IMPRESSION: No acute cardiopulmonary process is suspected, there are chronic changes within the irma gs, difficult to exclude superimposed pneumonia.
--- NOTE | 2020-06-30 16:30 | XR ---
KUB HISTORY: Abdominal pain Frontal KUB and 2 images Correlation to prior KUB 01/29/2020 Double-J stent is no longer present. Degenerative disc changes are present in the visualized spine, c ompression deformity at T12 is again noted. No evident bowel obstruction or pneumoperitoneum. There i s retained fecal debris throughout much of the distribution of the colon. Arthropathy present within the hips. IMPRESSION: Nonspecific bowel gas pattern.
[2020-06-30] MEDS ORDERED: SODIUM CHLORIDE 0.9% 1,000 ML IV ONE ×2 (16:42→16:45)
[2020-06-30] MEDS ORDERED: WARFARIN 0.5 MG TAB PO ONE (18:00)
[2020-06-30] MEDS ORDERED: WARFARIN 5 MG TAB PO SCH (21:00)
--- NOTE | 2020-06-30 22:14 | P.HPIM ---
History of Present Illness H&P Date: 06/30/20 Chief Complaint: Abdominal pain History of presenting complaint: This is a pleasant 80-year-old patient of Dr. Lozoya. 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 Patient lives with his mentally challenged son. D[place] Patient for over 2 weeks been having abdominal distention. Normally has a bowel movement every day. Has not had a bowel movement for at least a week. Denies any nausea vomiting. No fever. No pain. Does use a walker. His other distended in the belly. Review of systems: GEN.: None EYES: None HEENT: None NECK: None RESPIRATORY: None CARDIOVASCULAR: None GASTROINTESTINAL: As above GENITOURINARY: None MUSCULOSKELETAL: None LYMPHATICS: None HEMATOLOGICAL: None PSYCHIATRY: None NEUROLOGICAL: None Past medical history to include: Atrial fibrillation, COPD, hypertension, skin cancer involving the left cheek, resected, chronic back pain, chronic back pain with radiculopathy number stent involving the right upper extremity in the hands, varicose veins, hypertension, hyperlipidemia, 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 Son is highly functional below. Has home oxygen but does not better. Daughter lives next [place]. Does not smoke. No alcohol. Physical examination: VITAL SIGNS: 97.6, 83, 18, 143/98, 94% on 2 L GENERAL: BMI 26.4, sitting up in bed, slightly tired. EYES: Pupils equal. Conjunctiva normal. HEENT: External appearance of nose and ears normal, oral cavity grossly normal. NECK: JVD not raised; masses not palpable. HEART: First and second heart sounds are normal; no edema. LUNGS: Respiratory rate normal; clear to auscultation. ABDOMEN: Soft, distended, no guarding rigidity some tenderness upper abdomen liver spleen not palpable, no masses palpable. PSYCH: Alert and oriented x3; mood and affect normal. NEUROLOGICAL: Cranial nerves grossly intact; no facial asymmetry, power and sensation grossly intact. LYMPHATICS: No lymph nodes palpable in the axilla and neck INVESTIGATIONS, reviewed in the clinical context: White count 12 hemoglobin 13.7 platelets 273 INR 3.7 potassium 4.1 bun 21 creatine 0.65 EKG tracing personally reviewed by me-atrial flutter fibrillation with a heart rate of 120 Chest x-ray film personally reviewed by me-some Scattered infiltrates possibly chronic Abdominal x-ray film personally reviewed by me shows-scattered stool Element of ileus Assessment: -Bowel obstruction versus ileus -Persistent atrial flutter fibrillation rate uncontrolled -COPD -Essential hypertension -Hyperlipidemia Plan: Patient be put on ice chips. Home medications to continue. Surgery consulted. Cardiology and pulmonary. Care was discussed with the patient. Questions answered. Started IV fluids. Place on telemetry. 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 Past Anesthesia/Blood Transfusion Reactions: No Reported Reaction Past Psychological History: No Psychological Hx Reported Smoking Status: Former smoker Past Alcohol Use History: None Reported Past Drug Use History: None Reported - Past Family History Father Additional Family Medical History / Comment(s): Father was a drinker. He at the age of 80yrs. Mother Family Medical History: No Reported History Additional Family Medical History / Comment(s): Mother was healthy and lived to b90yrs old. Daughter(s) Family Medical History: Cancer Additional Family Medical History / Comment(s): Nely had breast cancer. Brother(s) Family Medical History: Cancer Additional Family Medical History / Comment(s): Brother had melanoma skin cancer. Sister(s) Family Medical History: Cancer Additional Family Medical History / Comment(s): Sister had melanoma skin cancer. Medications and Allergies Home Medications Medication Instructions Recorded Confirmed Type Diltiazem HCl [Diltiazem HCl 24Hr 120 mg PO DAILY 04/04/18 06/30/20 History ER (CD)] Fluticasone/Vilanterol [Breo 1 puff INHALATION RT-DAILY 04/04/18 06/30/20 History Ellipta 200-25 Mcg INH] lisinopriL [Zestril] 10 mg PO BID 04/04/18 06/30/20 History [facility] Vitamin & Mineral 1 tab PO BID 12/29/19 06/30/20 History Simvastatin [Zocor] 20 mg PO HS 12/29/19 06/30/20 History Warfarin Sodium 5 mg PO HS 12/29/19 06/30/20 History Allergies Allergy/AdvReac Type Severity Reaction Status Date / Time No Known Allergies Allergy Verified 06/30/20 16:40 Physical Exam Vitals: Vital Signs Temp Pulse Resp BP Pulse Ox 06/30/20 18:08 97.6 F 96 20 135/77 97 06/30/20 18:00 96 20 135/77 97 06/30/20 17:00 100 20 129/78 97 06/30/20 16:00 105 H 20 144/83 97 06/30/20 15:31 108 H 20 144/86 97 06/30/20 14:33 97.6 F 93 18 143/98 94 L Intake and Output 06/30/20 06/30/20 06/30/20 06:59 14:59 22:59 Other: Weight 90.718 kg Results CBC & Chem 7: 06/30/20 15:31 06/30/20 15:31 Labs: Abnormal Lab Results - Last 24 Hours (Table) 06/30/20 06/30/20 06/30/20 Range/Units 15:31 15:31 15:31 WBC 12.0 H (3.8-10.6) k/uL Neutrophils # 9.8 H (1.3-7.7) k/uL PT 36.1 H (9.0-12.0) sec INR 3.7 H (<1.2) APTT 36.8 H (22.0-30.0) sec Sodium (137-145) mmol/L BUN (9-20) mg/dL Creatinine (0.66-1.25) mg/dL Glucose (74-99) mg/dL Urine Protein Trace H (Negative) Urine Ketones 2+ H (Negative) Urine Blood Trace H (Negative) Amorphous Sediment Occasional H (None) /hpf Urine Bacteria Occasional H (None) /hpf Hyaline Casts 34 H (0-2) /lpf Urine Mucus Moderate H (None) /hpf Urine Sperm Occasional H (None) /hpf 06/30/20 Range/Units 15:31 WBC (3.8-10.6) k/uL Neutrophils # (1.3-7.7) k/uL PT (9.0-12.0) sec INR (<1.2) APTT (22.0-30.0) sec Sodium 135 L (137-145) mmol/L BUN 21 H (9-20) mg/dL Creatinine 0.65 L (0.66-1.25) mg/dL Glucose 106 H (74-99) mg/dL Urine Protein (Negative) Urine Ketones (Negative) Urine Blood (Negative) Amorphous Sediment (None) /hpf Urine Bacteria (None) /hpf Hyaline Casts (0-2) /lpf Urine Mucus (None) /hpf Urine Sperm (None) /hpf
[2020-06-30] MEDS ORDERED: SODIUM CHLORIDE 0.9% 1,000 ML IV SCH (22:15)
[2020-06-30] MEDS: ATORVASTATIN 10 MG TAB PO SCH (23:18)
[2020-06-30] MEDS: lisinopriL 10 MG TAB PO SCH (23:18)
[2020-07-01] MEDS: SYMBICORT 160-4.5 MCG INHALER INHALATION SCH ×2 (08:01→20:31)
--- NOTE | 2020-07-01 08:11 | US ---
EXAMINATION TYPE: US gallbladder DATE OF EXAM: 07/01/2020 COMPARISON: NONE CLINICAL HISTORY: Right upper quadrant abdominal pain. elderly male with abdominal pain EXAM MEASUREMENTS: Liver Length: 13.4 cm Gallbladder Wall: 0.3 cm CBD: 0.7 cm Right Kidney: not seen patient had to sit upright, could not lay back Pancreas: obscured by bowel gas Liver: intercostal right lobe only, wnl Gallbladder: 2.0cm stone toward neck, unable to assess mobility due to patient could not move, 10.9c m Evidence for sonographic Douglas's sign: no CBD: wnl Right Kidney: unable to assess due to bowel gas IMPRESSION: 1. Very limited examination due to bowel gas. 2. Cholelithiasis
[2020-07-01] MEDS ORDERED: FUROSEMIDE 10 MG/ML 4 ML VIAL IV STA (08:41)
[2020-07-01 08:59] LABS: INR 3.29 (0.90-1.11); Prothrombin Time 32.5 sec (9.9-11.9)
[2020-07-01] MEDS: DILTIAZEM CD 120 MG CAP.ER.24H PO SCH (09:05)
[2020-07-01] MEDS: lisinopriL 10 MG TAB PO SCH ×2 (09:05→22:01)
--- NOTE | 2020-07-01 10:04 | P.CRDCN ---
History of Present Illness History of present illness: HISTORY OF PRESENTING ILLNESS This is a pleasant 80-year-old male past medical history significant for chronic persistent atrial fibrillation on Coumadin, hypertension and dyslipidemia. He follows in the office with Dr. Hernandez. We have been asked to see in consultation for atrial fibrillation. He presented to the hospital with symptoms of abdominal pain, constipation and nausea. EKG on arrival revealed atrial fibrillation with heart rate of 120. He denies symptoms of chest pain, shortness of breath, dizziness or palpitations. He is coughing up some green sputum in the bedside base and. Chest x-ray reveals chronic changes within the lungs difficult to include superimposed pneumonia. Underlying pulmonary fibrosis. Laboratory data reviewed, WBC 12, hemoglobin 13.7, platelets 273, INR on admission 3. 7 repeat today 3.2, sodium 135, potassium 4.1, creatinine 0.65, cardiac enzymes negative 1. Current daily cardiac medications include warfarin, diltiazem 120 mg daily, simvastatin 20 mg at bedtime and lisinopril 10 mg twice a day. Most recent echocardiogram obtained in the office in 2019 revealed preserved LV systolic function with ejection fraction 50% with mild mitral regurgitation and mild tricuspid regurgitation REVIEW OF SYSTEMS At the time of my exam: CONSTITUTIONAL: Denies fever or chills. CARDIOVASCULAR: Denies chest pain, shortness of breath, orthopnea, PND or palpitations. RESPIRATORY: Denies cough. GASTROINTESTINAL: Complains of abdominal pain and constipation. Denies diarrhea, nausea or vomiting. MUSCULOSKELETAL: Denies myalgias. NEUROLOGIC: Denies numbness, tingling, headacbe or weakness. ENDOCRINE: Denies fatigue, weight change, polydipsia or polyurina. GENITOURINARY: Denies burning, hematuria or urgency with micturation. HEMATOLOGIC: Denies history of anemia or bleeding. PHYSICAL EXAMINATION Blood pressure 147/67 heart rate 87 afebrile and maintaining oxygen saturation on nasal cannula. CONSTITUTIONAL: No apparent distress. HEENT: Head is normocephalic. Pupils are equal, round. Sclerae anicteric. Mucous membranes of the mouth are moist. No JVD. No carotid bruit. CHEST EXAMINATION: Lungs are clear to auscultation. No chest wall tenderness is noted on palpation or with deep breathing. HEART EXAMINATION: Irregular rate and rhythm. S1, S2 heard. No murmurs, gallops or rub. ABDOMEN: Soft, tender. Positive bowel sounds. EXTREMITIES: 2+ peripheral pulses, bilateral lower extremity 2+ pitting edema and no calf tenderness. NEUROLOGIC EXAMINATION: Patient is awake, alert and oriented x3. ASSESSMENT Abdominal pain and bloating Leukocytosis Chronic persistent atrial fibrillation with rapid ventricular rate, resolved Supratherapeutic INR Hypertension Dyslipidemia PLAN Heart rates have improved. Likely rapid rates were Secondary to pain response. Coumadin was held last night and should be off and today. Optimal INR being 2 and 3. Give one dose of IV lasix for lower extremity swelling. He denies shortness of breath. Does not appear to be in heart failure. Ongoing medical management and treatment of abdominal pain. Follow up with Dr. Hernandez in the office upon discharge. Thank you kindly for this consultation. Nurse Practitioner note has been reviewed, I agree with a documented findings and plan of care. Patient was seen and examined. 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 Past Anesthesia/Blood Transfusion Reactions: No Reported Reaction Past Psychological History: No Psychological Hx Reported Smoking Status: Former smoker Past Alcohol Use History: None Reported Past Drug Use History: None Reported - Past Family History Father Additional Family Medical History / Comment(s): Father was a drinker. He at the age of 80yrs. Mother Family Medical History: No Reported History Additional Family Medical History / Comment(s): Mother was healthy and lived to b90yrs old. Daughter(s) Family Medical History: Cancer Additional Family Medical History / Comment(s): Nely had breast cancer. Brother(s) Family Medical History: Cancer Additional Family Medical History / Comment(s): Brother had melanoma skin cancer. Sister(s) Family Medical History: Cancer Additional Family Medical History / Comment(s): Sister had melanoma skin cancer. Medications and Allergies Home Medications Medication Instructions Recorded Confirmed Type Diltiazem HCl [Diltiazem HCl 24Hr 120 mg PO DAILY 04/04/18 06/30/20 History ER (CD)] Fluticasone/Vilanterol [Breo 1 puff INHALATION RT-DAILY 04/04/18 06/30/20 History Ellipta 200-25 Mcg INH] lisinopriL [Zestril] 10 mg PO BID 04/04/18 06/30/20 History [facility] Vitamin & Mineral 1 tab PO BID 12/29/19 06/30/20 History Simvastatin [Zocor] 20 mg PO HS 12/29/19 06/30/20 History Warfarin Sodium 5 mg PO HS 12/29/19 06/30/20 History Allergies Allergy/AdvReac Type Severity Reaction Status Date / Time No Known Allergies Allergy Verified 06/30/20 16:40 Physical Exam Vitals: Vital Signs Temp Pulse Pulse Resp BP BP Pulse Ox 07/01/20 08:00 97.9 F 87 20 147/67 97 07/01/20 02:00 97.9 F 93 18 161/84 96 06/30/20 20:00 97.9 F 83 18 159/94 95 06/30/20 18:08 97.6 F 96 20 135/77 97 06/30/20 18:00 96 20 135/77 97 06/30/20 17:17 97.9 F 83 16 159/94 95 06/30/20 17:00 100 20 129/78 97 06/30/20 16:00 105 H 20 144/83 97 06/30/20 15:31 108 H 20 144/86 97 06/30/20 14:33 97.6 F 93 18 143/98 94 L Intake and Output 06/30/20 07/01/20 07/01/20 22:59 06:59 14:59 Intake Total 600 Output Total 300 Balance -300 600 Intake: Intake, IV Titration 600 Amount Sodium Chloride 0.9% 1, 600 000 ml @ 75 mls/hr IV . [id number] [facility] Rx#:[id number] Output: Urine 300 Other: Voiding Method Urinal # Voids 2 3 Weight 90.718 kg Results 06/30/20 15:31 06/30/20 15:31 Cardiac Enzymes 06/30/20 06/30/20 Range/Units 15:31 15:31 AST 38 (17-59) U/L Troponin I <0.012 (0.000-0.034) ng/mL Coagulation 06/30/20 07/01/20 Range/Units 15:31 06:36 PT 36.1 H 32.5 H (9.0-12.0) sec APTT 36.8 H (22.0-30.0) sec CBC 06/30/20 Range/Units 15:31 WBC 12.0 H (3.8-10.6) k/uL RBC 4.59 (4.30-5.90) m/uL Hgb 13.7 (13.0-17.5) gm/dL Hct 41.0 (39.0-53.0) % Plt Count 273 (150-450) k/uL Comprehensive Metabolic Panel 06/30/20 Range/Units 15:31 Sodium 135 L (137-145) mmol/L Potassium 4.1 (3.5-5.1) mmol/L Chloride 103 (98-107) mmol/L Carbon Dioxide 27 (22-30) mmol/L BUN 21 H (9-20) mg/dL Creatinine 0.65 L (0.66-1.25) mg/dL Glucose 106 H (74-99) mg/dL Calcium 8.9 (8.4-10.2) mg/dL AST 38 (17-59) U/L ALT 21 (4-49) U/L Alkaline Phosphatase 100 (38-126) U/L Total Protein 7.3 (6.3-8.2) g/dL Albumin 3.7 (3.5-5.0) g/dL Current Medications Generic Name Dose Route Start Last Admin Trade Name Freq PRN Reason Stop Dose Admin Atorvastatin Calcium 10 mg 06/30/20 21:00 06/30/20 23:18 Atorvastatin 10 Mg Tab PO 10 mg HS DAWNA Administration Budesonide/Formoterol Fumarate 2 puff 07/01/20 08:00 07/01/20 08:01 Symbicort 160-4.5 Mcg Inhaler INHALATION 2 puff RT-BID DAWNA Administration Diltiazem HCl 120 mg 07/01/20 09:00 07/01/20 09:05 Diltiazem Cd 120 Mg Cap.Er.24h PO 120 mg DAILY DAWNA Administration Lisinopril 10 mg 06/30/20 21:00 07/01/20 09:05 Lisinopril 10 Mg Tab PO 10 mg BID DAWNA Administration Miscellaneous Information 0 each 06/30/20 18:30 Warfarin Per Pharmacy MISCELLANE DIRECTED PRN PER PROTOCOL Warfarin Sodium 1 mg 07/01/20 18:00 Warfarin 1 Mg Tab PO 07/01/20 18:01 ONCE@1800 ONE Intake and Output 06/30/20 07/01/20 07/01/20 22:59 06:59 14:59 Intake Total 600 Output Total 300 Balance -300 600 Intake: Intake, IV Titration 600 Amount Sodium Chloride 0.9% 1, 600 000 ml @ 75 mls/hr IV . [id number] DAWNA Rx#:[id number] Output: Urine 300 Other: Voiding Method Urinal # Voids 2 3 Weight 90.718 kg 06/30/20 15:31 06/30/20 15:31
[2020-07-01] MEDS ORDERED: LACTULOSE 20 GM/30 ML CUP PO ONE (12:15)
[2020-07-01] MEDS ORDERED: MAGNESIUM HYDROXIDE 2,400 MG/10 ML CUP PO ONE (12:15)
--- NOTE | 2020-07-01 12:31 | P.GSCN ---
History of Present Illness Consult date: 07/01/20 History of present illness: CHIEF COMPLAINT: Abdominal pain HISTORY OF PRESENT ILLNESS: The patient is a 80-year-old male who presented to the hospital yesterday. He comes in pre-existing history of chronic anticoagulation with history of major fibrillation. He was recently diagnosed with a new lung mass. Separately, he presented also with new onset bilateral up per abdominal pain. Per records, patient has been having abdominal pain beyond 1 week. As a result, Gen. surgery's consulted for further assessment of his abdominal pain. Most of this history is obtained per chart as patient reports that he doesn't know much. At the time of my assessment, he reports his abdominal pain has improved. I did order an ultrasound of the abdomen for further workup. Patient has been seen by cardiology as well. He is also being seen by pulmonary for new lung mass. PAST MEDICAL HISTORY: See list and reviewed PAST SURGICAL HISTORY: See list and reviewed MEDICATIONS: See list and reviewed ALLERGIES: See list and reviewed SOCIAL HISTORY: See list and reviewed FAMILY HISTORY: See list and reviewed REVIEW OF ORGAN SYSTEMS: CONSTITUTIONAL: No fevers or chills. EYES: Has pre-existing troubles with left eye. No glasses. HEENT: No difficulties with hearing. No nosebleeds. RESPIRATORY: Has chronic obstructive pulmonary disease of moderate severity. Does have new lung mass. CARDIOVASCULAR: Has atrial fibrillation and on chronic anticoagulation. GASTROINTESTINAL: Has chronic constipation. GENITOURINARY: Denies any blood in urine or increased urinary frequency. NEUROLOGICAL: Has numbness and tingling in bilateral upper extremity. Has radiculopathy of cervical spine. MUSCULOSKELETAL: Has back pain, stiffness or joint arthritis. SKIN: History of skin cancer PSYCHIATRIC: Denies current depression or suicidal thoughts. ENDOCRINE: Denies current thyroid disorders. Denies any blood sugar glucose intolerance. HEME/LYMPHATIC: Denies any lumps and bumps around the neck. No recent deep venous thrombosis. ALLERGY/IMMUNOLOGY: No immunoglobulin therapy. No immune deficiencies. BREAST: Denies current breast lumps, pain or nipple discharge. PHYSICAL EXAM: VITALS: Reviewed CONSTITUTIONAL: Well developed and in no acute distress. EYES: Conjuctivae without sclera icterus. Extraocular movements grossly intact. HEAD, EARS, NOSE, THROAT: Moist buccal mucosa. Head is atraumatic, normocephalic. Hears conversational speech. No nasal drainage. NECK: No JV distention. No thyroidomegaly. RESPIRATORY: Non-labored respirations and equal bilateral excursions. No gross wheezes. CARDIOVASCULAR: Irregular rate and irregular rhythm ABDOMEN: Soft. Protuberant, nondistended. No peritonitis. No moderate tenderness to light palpation bilateral upper abdomen LYMPH: No neck lymphadenopathy. MUSCULOSKELETAL: Nail and fingers with good capillary refill. SKIN: Warm and well perfused with good skin turgor. NEUROLOGIC: Cranial nerves II through XII grossly intact. Sensation upper and extremities intact. No focal or lateralizing signs. PSYCH: Flat affect. Alert and oriented to person. CLINCAL LABS: Reviewed. WBC elevated over 12,000. LFTs within normal limits. INR elevated 3.7. IMAGING: Independently reviewed CT of the abdomen and pelvis from 06/27/2020 demonstrating moderate retained stool along the sigmoid colon, descending colon transverse colon. Gallbladder was moderately distended. Presence of umbilical hernia noted fat-containing. Has diastases recti. 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 Moderately distended bladder. Sigmoid diverticulosis identified. This is my independent interpretation. Ultrasound of the gallbladder independently review demonstrates gallstone along the infundibulum of the gallbladder. This is my independent interpretation. RADIOLOGY: Report reviewed a CT of the abdomen and pelvis confirms horseshoe kidney. Stone within the bladder identified. RECORDS: previous old records reviewed the previous cystoscopy and ureteral stent removal from 2019 EKG: Independently reviewed with H fibrillation with rapid ventricular response ASSESSMENT: 1. Bilateral upper abdominal pain present on admission 2. Chronic atrial fibrillation with rapid ventricular response 3. Bladder kidney stones 4. History of skin cancer 5. Diverticulosis of the sigmoid colon 6. Horseshoe kidney once kidney cyst 7. Leukocytosis present on admission PLAN: 1. He presents with moderately elevated INR of 3.7 which is contraindicated for surgery at this time 2. Recommend hold Coumadin 3. Agree with cardiac risk assessment including holding of Coumadin with transition to heparin drip 4. He has symptomatic gallstones with abdominal pain and evaluation for surgery described 5. In the interim, patient has moderate constipation. Start MiraLAX and lac tulose for constipation 6. May have liquid diet in the interim pending results from laxatives Thank you for this kind consultation. 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 Past Anesthesia/Blood Transfusion Reactions: No Reported Reaction Past Psychological History: No Psychological Hx Reported Smoking Status: Former smoker Past Alcohol Use History: None Reported Past Drug Use History: None Reported - Past Family History Father Additional Family Medical History / Comment(s): Father was a drinker. He at the age of 80yrs. Mother Family Medical History: No Reported History Additional Family Medical History / Comment(s): Mother was healthy and lived to b90yrs old. Daughter(s) Family Medical History: Cancer Additional Family Medical History / Comment(s): Nely had breast cancer. Brother(s) Family Medical History: Cancer Additional Family Medical History / Comment(s): Brother had melanoma skin cancer. Sister(s) Family Medical History: Cancer Additional Family Medical History / Comment(s): Sister had melanoma skin cancer. Medications and Allergies Home Medications Medication Instructions Recorded Confirmed Type Diltiazem HCl [Diltiazem HCl 24Hr 120 mg PO DAILY 04/04/18 06/30/20 History ER (CD)] Fluticasone/Vilanterol [Breo 1 puff INHALATION RT-DAILY 04/04/18 06/30/20 History Ellipta 200-25 Mcg INH] lisinopriL [Zestril] 10 mg PO BID 04/04/18 06/30/20 History [facility] Vitamin & Mineral 1 tab PO BID 12/29/19 06/30/20 History Simvastatin [Zocor] 20 mg PO HS 12/29/19 06/30/20 History Warfarin Sodium 5 mg PO HS 12/29/19 06/30/20 History Allergies Allergy/AdvReac Type Severity Reaction Status Date / Time No Known Allergies Allergy Verified 06/30/20 16:40 Surgical - Exam Vital Signs Temp Pulse Resp BP Pulse Ox 97.6 F 93 18 143/98 94 L 06/30/20 14:33 06/30/20 14:33 06/30/20 14:33 06/30/20 14:33 06/30/20 14:33 Results - Labs 06/30/20 15:31 06/30/20 15:31 Abnormal Lab Results - Last 24 Hours (Table) 06/30/20 06/30/20 06/30/20 Range/Units 15:31 15:31 15:31 WBC 12.0 H (3.8-10.6) k/uL Neutrophils # 9.8 H (1.3-7.7) k/uL PT 36.1 H (9.0-12.0) sec INR 3.7 H (<1.2) APTT 36.8 H (22.0-30.0) sec Sodium (137-145) mmol/L BUN (9-20) mg/dL Creatinine (0.66-1.25) mg/dL Glucose (74-99) mg/dL Urine Protein Trace H (Negative) Urine Ketones 2+ H (Negative) Urine Blood Trace H (Negative) Amorphous Sediment Occasional H (None) /hpf Urine Bacteria Occasional H (None) /hpf Hyaline Casts 34 H (0-2) /lpf Urine Mucus Moderate H (None) /hpf Urine Sperm Occasional H (None) /hpf 06/30/20 07/01/20 Range/Units 15:31 06:36 WBC (3.8-10.6) k/uL Neutrophils # (1.3-7.7) k/uL PT 32.5 H (9.0-12.0) sec INR 3.29 H (<1.2) APTT (22.0-30.0) sec Sodium 135 L (137-145) mmol/L BUN 21 H (9-20) mg/dL Creatinine 0.65 L (0.66-1.25) mg/dL Glucose 106 H (74-99) mg/dL Urine Protein (Negative) Urine Ketones (Negative) Urine Blood (Negative) Amorphous Sediment (None) /hpf Urine Bacteria (None) /hpf Hyaline Casts (0-2) /lpf Urine Mucus (None) /hpf Urine Sperm (None) /hpf Diabetes panel 06/30/20 Range/Units 15:31 Sodium 135 L (137-145) mmol/L Potassium 4.1 (3.5-5.1) mmol/L Chloride 103 (98-107) mmol/L Carbon Dioxide 27 (22-30) mmol/L BUN 21 H (9-20) mg/dL Creatinine 0.65 L (0.66-1.25) mg/dL Glucose 106 H (74-99) mg/dL Calcium 8.9 (8.4-10.2) mg/dL AST 38 (17-59) U/L ALT 21 (4-49) U/L Alkaline Phosphatase 100 (38-126) U/L Total Protein 7.3 (6.3-8.2) g/dL Albumin 3.7 (3.5-5.0) g/dL Calcium panel 06/30/20 Range/Units 15:31 Calcium 8.9 (8.4-10.2) mg/dL Albumin 3.7 (3.5-5.0) g/dL Pituitary panel 06/30/20 Range/Units 15:31 Sodium 135 L (137-145) mmol/L Potassium 4.1 (3.5-5.1) mmol/L Chloride 103 (98-107) mmol/L Carbon Dioxide 27 (22-30) mmol/L BUN 21 H (9-20) mg/dL Creatinine 0.65 L (0.66-1.25) mg/dL Glucose 106 H (74-99) mg/dL Calcium 8.9 (8.4-10.2) mg/dL Adrenal panel 06/30/20 Range/Units 15:31 Sodium 135 L (137-145) mmol/L Potassium 4.1 (3.5-5.1) mmol/L Chloride 103 (98-107) mmol/L Carbon Dioxide 27 (22-30) mmol/L BUN 21 H (9-20) mg/dL Creatinine 0.65 L (0.66-1.25) mg/dL Glucose 106 H (74-99) mg/dL Calcium 8.9 (8.4-10.2) mg/dL Total Bilirubin 1.2 (0.2-1.3) mg/dL AST 38 (17-59) U/L ALT 21 (4-49) U/L Alkaline Phosphatase 100 (38-126) U/L Total Protein 7.3 (6.3-8.2) g/dL Albumin 3.7 (3.5-5.0) g/dL Assessment and Plan (1) Gallstones Current Visit: Yes Status: Acute Code(s): K80.20 - CALCULUS OF GALLBLADDER W/O CHOLECYSTITIS W/O OBSTRUCTION SNOMED Code(s): 296581484 (2) Upper abdominal pain Current Visit: Yes Status: Acute Code(s): R10.10 - UPPER ABDOMINAL PAIN, UNSPECIFIED SNOMED Code(s): 53180227 (3) Bladder calculi Current Visit: Yes Status: Acute Code(s): N21.0 - CALCULUS IN BLADDER SNOMED Code(s): 36342806 (4) Diverticulosis Current Visit: Yes Status: Acute Code(s): K57.90 - DVRTCLOS OF INTEST, PART UNSP, W/O PERF OR ABSCESS W/O BLEED SNOMED Code(s): 707287025 (5) Hypertensive heart disease Current Visit: Yes Status: Acute Code(s): I11.9 - HYPERTENSIVE HEART DISEASE WITHOUT HEART FAILURE SNOMED Code(s): 99272797 (6) Anticoagulant long-term use Current Visit: Yes Status: Acute Code(s): Z79.01 - CATARACT LENS GENERATOR (CURRENT) USE OF ANTICOAGULANTS SNOMED Code(s): 016479616 (7) Anticoagulant overdosage Current Visit: Yes Status: Acute Code(s): T45.511A - POISONING BY ANTICOAGULANTS, ACCIDENTAL, INIT SNOMED Code(s): 44093214 (8) Atrial fibrillation with RVR Current Visit: Yes Status: Acute Code(s): I48.91 - UNSPECIFIED ATRIAL FIBRILLATION SNOMED Code(s): 512933101128196 (9) Dehydration Current Visit: Yes Status: Acute Code(s): E86.0 - DEHYDRATION SNOMED Code(s): 34271821 (10) Weakness Current Visit: Yes Status: Acute Code(s): R53.1 - WEAKNESS SNOMED Code(s): 28220784 (11) Calculus of kidney Current Visit: No Status: Acute Code(s): N20.0 - CALCULUS OF KIDNEY SNOMED Code(s): 36506882
[2020-07-01] MEDS: PIPERACILLIN-TAZOBACTAM 3.375 GM in SODIUM CHLORIDE 0.9% 100 ML IVPB SCH ×2 (13:11→22:00)
--- NOTE | 2020-07-01 14:54 | P.CNPUL ---
History of Present Illness Consult date: 07/01/20 Requesting physician: Dwayne Solomon Reason for consult: lung mass, abnormal CXR/CT, other Chief complaint: Right lower lobe nodular density History of present illness: 80-year-old white male patient with multiple medical problems including COPD with baseline FEV1 of 45% of predicted, chronic A. fib with history of ablation, hypertension, hyperlipidemia, former smoker, chronic back pain, chronic neck pain, who came in on 06/30/2020 with complaints of weakness, one month history of abdominal pain in the right and left upper quadrant. Patient denies any blood in the stool, denies any nausea vomiting. Denied any fever or chills. Patient is also complaining of increased difficulty with breathing. Patient was in the emergency department 3 days prior and was discharged home with outpatient follow-up instruction however he was too weak to be able to do that. 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 CT angiogram of the chest completed in view of elevated d-dimer of 1.6 on 06/27/2020 showed no evidence of pulmonary embolism, and ill-defined 24 mm spiculated opacity in the right lower lobe that could represent infectious process versus neoplasm. There was also enlarged right hilar lymph nodes. Lab data on 06/30/2020 showed a white blood cell count of 12, hemoglobin of 13.7, INR is 3.7, sodium is 135, the rest of the electrolytes were within normal limits, B1 is 21 and creatinine was 0.65. Troponin was less than 0.012, amylase and lipase were negative, LFTs were within normal limits, urinalysis showed 2+ ketones, trace blood, but no evidence of infection. Currently patient is und ergoing surgical evaluation for bilateral upper quadrant abdominal pain, his abdomen remains tender, surgical services are following, his INR is still elevated at 3.7 his Coumadin is on hold for possibility of surgical intervention. He is getting MiraLAX and lactulose for constipation, he is on clear liquid diet, he's had no nausea. He denies any hemoptysis, he is not having any respiratory distress, he is on 2 L of oxygen and pulse ox 97%, he is afebrile. We are asked to see the patient in regards to the right lower lobe nodular density possibility of lung cancer. Review of Systems All systems: negative Constitutional: Reports weakness, Denies chills, Denies fever Eyes: denies blurred vision, denies pain Ears, nose, mouth and throat: Denies headache, Denies sore throat Cardiovascular: Denies chest pain, Denies shortness of breath Respiratory: Reports dyspnea, Denies cough Gastrointestinal: Reports constipation, Denies abdominal pain, Denies diarrhea, Denies nausea, Denies vomiting Musculoskeletal: Denies myalgias Integumentary: Denies pruritus, Denies rash Neurological: Denies numbness, Denies weakness Psychiatric: Denies anxiety, Denies depression Endocrine: Denies fatigue, Denies weight change Past Medical History Past Medical History: Atrial Fibrillation, Cancer, COPD, Hypertension Additional Past Medical History / Comment(s): COPD with an FEV1 of 45% of predicted, chronic atrial fibrillation, skin cancer involving the left cheek resected surgically, chronic back pain, chronic neck pain with radiculopathy and numbness and tingling involving the right upper extremity and the hand and the lower extremities, varicose veins bilaterally, hypertension, hyperlipidemia, history of childhood left eye injury with limited vision involving the left eye. 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 Past Anesthesia/Blood Transfusion Reactions: No Reported Reaction Past Psychological History: No Psychological Hx Reported Smoking Status: Former smoker Past Alcohol Use History: None Reported Past Drug Use History: None Reported - Past Family History Father Additional Family Medical History / Comment(s): Father was a drinker. He at the age of 80yrs. Mother Family Medical History: No Reported History Additional Family Medical History / Comment(s): Mother was healthy and lived to b90yrs old. Daughter(s) Family Medical History: Cancer Additional Family Medical History / Comment(s): Nely had breast cancer. Brother(s) Family Medical History: Cancer Additional Family Medical History / Comment(s): Brother had melanoma skin cancer. Sister(s) Family Medical History: Cancer Additional Family Medical History / Comment(s): Sister had melanoma skin cancer. Medications and Allergies Home Medications Medication Instructions Recorded Confirmed Type Diltiazem HCl [Diltiazem HCl 24Hr 120 mg PO DAILY 04/04/18 06/30/20 History ER (CD)] Fluticasone/Vilanterol [Breo 1 puff INHALATION RT-DAILY 04/04/18 06/30/20 History Ellipta 200-25 Mcg INH] lisinopriL [Zestril] 10 mg PO BID 04/04/18 06/30/20 History [facility] Vitamin & Mineral 1 tab PO BID 12/29/19 06/30/20 History Simvastatin [Zocor] 20 mg PO HS 12/29/19 06/30/20 History Warfarin Sodium 5 mg PO HS 12/29/19 06/30/20 History Allergies Allergy/AdvReac Type Severity Reaction Status Date / Time No Known Allergies Allergy Verified 06/30/20 16:40 Physical Exam Vitals: Vital Signs Temp Pulse Pulse Resp BP BP Pulse Ox 07/01/20 08:00 97.9 F 87 17 147/67 97 07/01/20 02:00 97.9 F 93 18 161/84 96 06/30/20 20:00 97.9 F 83 18 159/94 95 06/30/20 18:08 97.6 F 96 20 135/77 97 06/30/20 18:00 96 20 135/77 97 06/30/20 17:17 97.9 F 83 16 159/94 95 06/30/20 17:00 100 20 129/78 97 06/30/20 16:00 105 H 20 144/83 97 06/30/20 15:31 108 H 20 144/86 97 06/30/20 14:33 97.6 F 93 18 143/98 94 L Intake and Output 06/30/20 07/01/20 07/01/20 22:59 06:59 14:59 Intake Total 600 Output Total 300 1390 Balance -300 600 -1390 Intake: Intake, IV Titration 600 Amount Sodium Chloride 0.9% 1, 600 000 ml @ 75 mls/hr IV . [id number] Rx#:[id number] Output: Urine 300 1390 Other: Voiding Method Urinal Urinal Diaper # Voids 2 3 Weight 90.718 kg GENERAL EXAM: Alert, very pleasant, 80-year-old white male, on 2 L of oxygen and the pulse ox 97% comfortable in no apparent distress. HEAD: Normocephalic/atraumatic. EYES: Normal reaction of pupils, equal size. Conjunctiva pink, sclera white. NOSE: Clear with pink turbinates. THROAT: No erythema or exudates. NECK: No masses, no JVD, no thyroid enlargement, no adenopathy. CHEST: No chest wall deformity. Symmetrical expansion. LUNGS: Equal air entry with no crackles, wheeze, rhonchi or dullness. CVS: Irregular rate and rhythm, normal S1 and S2, no gallops, no murmurs, no rubs ABDOMEN: Soft, distended, tender, no hepatosplenomegaly, normal bowel sounds, no guarding or rigidity. EXTREMITIES: No clubbing, no edema, no cyanosis, 2+ pulses and upper and lower extremities. MUSCULOSKELETAL: Muscle strength and tone normal. SPINE: No scoliosis or deformity SKIN: No rashes CENTRAL NERVOUS SYSTEM: Alert and oriented -3. No focal deficits, tone is normal in all 4 extremities. PSYCHIATRIC: Alert and oriented -3. Appropriate affect. Intact judgment and insight. Results - Laboratory Findings CBC and BMP: 06/30/20 15:31 06/30/20 15:31 PT/INR, D-dimer PT 32.5 sec (9.9-11.9) H 07/01/20 06:36 INR 3.29 (0.90-1.11) H 07/01/20 06:36 Abnormal lab findings: Abnormal Labs 06/30/20 06/30/20 06/30/20 15:31 15:31 15:31 WBC 12.0 H Neutrophils # 9.8 H PT 36.1 H INR 3.7 H APTT 36.8 H Sodium BUN Creatinine Glucose Urine Protein Trace H Urine Ketones 2+ H Urine Blood Trace H Amorphous Sediment Occasional H Urine Bacteria Occasional H Hyaline Casts 34 H Urine Mucus Moderate H Urine Sperm Occasional H 06/30/20 07/01/20 15:31 06:36 WBC Neutrophils # PT 32.5 H INR 3.29 H APTT Sodium 135 L BUN 21 H Creatinine 0.65 L Glucose 106 H Urine Protein Urine Ketones Urine Blood Amorphous Sediment Urine Bacteria Hyaline Casts Urine Mucus Urine Sperm - Diagnostic Findings Chest x-ray: report reviewed, image reviewed Assessment and Plan Plan: Assessment: #1. Right lower lobe 24 mm spiculated opacity rule out possibility of lung cancer. CT angiogram was completed on 06/27/2020 in view of elevated d-dimer and found no evidence of pulmonary embolism, and in addition to the right lower lobe nodular density also showed groundglass opacities in the right lower lobe the possibility of infectious/inflammatory process versus mild edema, mild right pleural effusion, and COPD #2. Abdominal pain, ongoing for 1 month. Ultrasound of gallbladder showed moderately distended gallbladder, gallstone along the infundibulum of the gallbladder. CT of the abdomen showed moderate retained stool along the sigmoid colon, descending and transverse colon #3. Moderate constipation #4. Diverticulosis of the sigmoid colon #5. Horseshoe kidney #6. Bladder kidney stones #7. Chronic atrial fibrillation with RVR, on Coumadin, which is currently on hold for possibility of surgery #8. COPD with FEV1 of 45% of predicted #9. Chronic back and neck pain #10. History of skin cancer #11. Hypertension #12. Hyperlipidemia #13. Former smoker Plan: Patient is undergoing surgical evaluation for abdominal pain. His Coumadin remains on hold, his INR remains elevated, from pulmonary perspective no immediate plans for bronchoscopy with biopsies, his CTA chest has been reviewed, Patient will need outpatient PET scan after discharge and outpatient follow-up in the outpatient setting with Dr. Cifuentes. I performed a history & physical examination of the patient and discussed their management with my nurse practitioner, Domonique Charles. I reviewed the nurse practitioner's note and agree with the documented findings and plan of care. Lung sounds are positive for diminished breath sounds. The findings and the impression was discussed with the patient. I attest to the documentation by the nurse practitioner. Time with Patient: Greater than 30
--- NOTE | 2020-07-01 15:02 | XR ---
EXAMINATION TYPE: XR abdomen 1V DATE OF EXAM: 07/01/2020 COMPARISON: 06/30/2020 INDICATION: Abdominal pain, distention TECHNIQUE: Supine view FINDINGS: Nonspecific bowel gas is present. No mass effect is evident. There are fecal debris is within the col on. Psoas margins are normal. No organomegaly is present. IMPRESSION: 1. Nonspecific abdomen
[2020-07-01] MEDS ORDERED: WARFARIN 1 MG TAB PO ONE (18:00)
[2020-07-01] MEDS ORDERED: PHYTONADIONE ORAL 5 MG/5 ML ORAL.SYRG PO STA ×2 (19:59→21:59)
--- NOTE | 2020-07-01 20:00 | P.PN ---
Progress Note - Text Progress Note Date: 07/01/20 Chief Complaint: Abdominal pain History of presenting complaint: This is a pleasant 80-year-old patient of Dr. Lozoya. 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 Patient lives with his mentally challenged son. Daughter lives next door. Patient for over 2 weeks been having abdominal distention. Normally has a bowel movement every day. Has not had a bowel movement for at least a week. Denies any nausea vomiting. No fever. No pain. Does use a walker. distended in the belly. Admitted with-severe obstipation. Also atrial fibrillation rapid ventricular rate. Today-did have a bowel movement. Given laxatives. Heart rate better controlled. Ultrasound this morning did show gallstones. Coumadin has been held. Review of systems: Was done for constitutional, cardiovascular, GI, pulmonary. relevant finding as above Active Medications Atorvastatin Calcium (Atorvastatin 10 Mg Tab) 10 mg PO HS [facility] Last Admin: 06/30/20 23:18 Dose: 10 mg Documented by: Budesonide/Formoterol Fumarate (Symbicort 160-4.5 Mcg Inhaler) 2 puff INHALATION RT-BID [facility] Last Admin: 07/01/20 08:01 Dose: 2 puff Documented by: Diltiazem HCl (Diltiazem Cd 120 Mg Cap.Er.24h) 120 mg PO DAILY [facility] Last Admin: 07/01/20 09:05 Dose: 120 mg Documented by: Piperacillin Sod/Tazobactam (Sod 3.375 gm/ Sodium Chloride) 100 mls @ 25 mls/hr IVPB Q8H [facility] Last Admin: 07/01/20 13:11 Dose: 25 mls/hr Documented by: Lisinopril (Lisinopril 10 Mg Tab) 10 mg PO BID [facility] Last Admin: 07/01/20 09:05 Dose: 10 mg Documented by: Miscellaneous Information (Warfarin Per Pharmacy) 0 each MISCELLANE DIRECTED PRN PRN Reason: PER PROTOCOL Past medical history to include: Atrial fibrillation, COPD, hypertension, skin cancer involving the left cheek, resected, chronic back pain, chronic back pain with radiculopathy number stent involving the right upper extremity in the hands, varicose veins, hypertension, hyperlipidemia, 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 Son is highly functional . Has home oxygen but does not use it. Daughter lives next dose. Does not smoke. No alcohol. Physical examination: VITAL SIGNS: 97.9, 87, 20, 147 with 67, 97% on 2 L GENERAL: BMI 26.4, declining in bed. EYES: Pupils equal. Conjunctiva normal. HEENT: External appearance of nose and ears normal, oral cavity grossly normal. NECK: JVD not raised; masses not palpable. HEART: First and second heart sounds are normal; no edema. LUNGS: Respiratory rate normal; clear to auscultation. ABDOMEN: Soft, distended, no guarding rigidity some tenderness upper abdomen liver spleen not palpable, no masses palpable. PSYCH: Alert and oriented x3; mood and affect normal. INVESTIGATIONS, reviewed in the clinical context: July 01: INR 3.29 Abdominal ultrasound: Gallstones White count 12 hemoglobin 13.7 platelets 273 INR 3.7 potassium 4.1 bun 21 creatine 0.65 EKG tracing personally reviewed by me-atrial flutter fibrillation with a heart rate of 120 Chest x-ray film personally reviewed by me-some Scattered infiltrates possibly chronic Abdominal x-ray film personally reviewed by me shows-scattered stool Element of ileus Assessment: -Bowel obstruction versus ileus with obstipation -Persistent atrial flutter fibrillation rate uncontrolled A. fib now better controlled -COPD -Essential hypertension -Hyperlipidemia -Obstipation. Given laxative -Gallstones Plan: Coumadin has been held. With a view to possible surgery for gallstones plus Dr. Orourke. We'll give 5 mg pO vitamin K. Also patient started on IV Zosyn per surgery. LAUREN Coumadin
[2020-07-01] MEDS: ATORVASTATIN 10 MG TAB PO SCH (22:01)
[2020-07-02] MEDS: PIPERACILLIN-TAZOBACTAM 3.375 GM in SODIUM CHLORIDE 0.9% 100 ML IVPB SCH ×3 (03:50→20:53)
[2020-07-02 06:19] LABS: Basophils % (A) 0 %; Eosinophils # (A) 0.1 k/uL (0-0.7); Eosinophils % (A) 0 %; HCT 41.4 % (39.0-53.0); HGB 13.7 gm/dL (13.0-17.5); Lymphocytes # (A) 1.3 k/uL (1.0-4.8); Lymphocytes % (A) 11 %; MCH 29.4 pg (25.0-35.0); Mean Platelet Volume 7.8; Monocytes # (A) 0.8 k/uL (0-1.0); Monocytes % (A) 6 %; Neutrophils # (A) 9.7 k/uL (1.3-7.7); Neutrophils % (A) 81 %; Platelet Count 318 k/uL (150-450); RBC 4.65 m/uL (4.30-5.90); RDW 12.9 % (11.5-15.5); WBC 11.9 k/uL (3.8-10.6)
[2020-07-02] MEDS: SYMBICORT 160-4.5 MCG INHALER INHALATION SCH ×2 (07:59→19:28)
--- NOTE | 2020-07-02 09:10 | P.PN ---
Subjective HISTORY OF PRESENTING ILLNESS This is a pleasant 80-year-old male past medical history significant for chronic persistent atrial fibrillation on Coumadin, hypertension and dyslipidemia. He follows in the office with Dr. Hernandez. He is seen and examined sitting up in bed in no acute distress. He states his abdomen still feels sore but much less uncomfortable than yesterday. He denies shortness of breath, dizziness or palpitations. He continues to cough and is bringing up green sputum in the bedside baseline. Blood pressure 156/76 heart rate 87 afebrile maintaining oxygen saturation on room air. Daily labs are pending at this time. Telemetry tracings reviewed and last evening at 2 AM the patient had an episode of wide complex tachycardia appears to be aberrancy. PHYSICAL EXAMINATION CONSTITUTIONAL: No apparent distress. HEENT: Head is normocephalic. Pupils are equal, round. Sclerae anicteric. Mucous membranes of the mouth are moist. No JVD. No carotid bruit. CHEST EXAMINATION: Lungs are clear to auscultation. No chest wall tenderness is noted on palpation or with deep breathing. HEART EXAMINATION: Irregular rate and rhythm. S1, S2 heard. No murmurs, gallops or rub. EXTREMITIES: 2+ peripheral pulses, bilateral lower extremity 2+ pitting edema and no calf tenderness. ASSESSMENT Abdominal pain and bloating Leukocytosis Chronic persistent atrial fibrillation with rapid ventricular rate, resolved Supratherapeutic INR Hypertension Dyslipidemia PLAN Initiate Lopressor 25 mg twice a day to his daily regimen. He continues to have lower extremity edema. Pending renal function and electrolytes we will give another dose of IV Lasix to optimize his fluid volume status prior to undergoing surgical intervention. Nurse Practitioner note has been reviewed, I agree with a documented findings and plan of care. Patient was seen and examined. Objective - Vital Signs Vital signs: Vital Signs Temp 98.0 F 07/02/20 07:12 Pulse 87 07/02/20 07:12 Resp 18 07/02/20 07:12 BP 156/76 07/02/20 07:12 Pulse Ox 93 L 07/02/20 07:12 Intake & Output 07/01/20 07/02/20 07/02/20 18:59 06:59 18:59 Intake Total 600 Output Total 1390 Balance -1390 600 Intake: Intake, IV Titration 600 Amount Sodium Chloride 0.9% 1, 600 000 ml @ 75 mls/hr IV . [id number] [facility] Rx#:[id number] Output: Urine 1390 Other: Voiding Method Urinal Urinal Urinal Diaper Diaper Diaper # Voids 3 1 # Bowel Movements 2 1 - Labs CBC & Chem 7: 07/02/20 05:20 06/30/20 15:31 Labs: Abnormal Lab Results - Last 24 Hours (Table) 07/02/20 Range/Units 05:20 WBC 11.9 H (3.8-10.6) k/uL Neutrophils # 9.7 H (1.3-7.7) k/uL
[2020-07-02] MEDS: DILTIAZEM CD 120 MG CAP.ER.24H PO SCH (09:16)
[2020-07-02] MEDS: METOPROLOL TARTRATE 25 MG TAB PO SCH ×2 (09:16→20:55)
[2020-07-02] MEDS: lisinopriL 10 MG TAB PO SCH ×2 (09:16→20:53)
[2020-07-02 10:16] LABS: INR 1.83 (0.90-1.11); Prothrombin Time 18.9 sec (9.9-11.9)
[2020-07-02 10:35] LABS: African American GFR (CKD) 110.1 (60.0-200.0); Albumin 3.9 g/dL (3.80-4.90); Albumin/Globulin Ratio 1.44 (1.60-3.17); Anion Gap 17.9 mmol/L (4.00-12.00); BUN/Creat Ratio 23.33 Ratio (12.00-20.00); Calcium 8.8 mg/dL (8.7-10.3); Carbon Dioxide 28.1 mmol/L (21.6-31.8); Globulin 2.7 g/dL (1.6-3.3); Potassium 4.4 mmol/L (3.5-5.5); Total Bilirubin 1.3 mg/dL (0.3-1.2); Total Protein 6.6 g/dL (6.2-8.2)
--- NOTE | 2020-07-02 10:45 | P.PN ---
Subjective Progress Note Date: 07/02/20 CHIEF COMPLAINT: Abdominal pain HISTORY OF PRESENT ILLNESS: The patient is a 80-year-old male on chronic anticoagulation for atrial fibrillation recently diagnosed with a new lung mass. He presented with bilateral upper abdominal pain. Ultrasound of the abdomen demonstrated gallstones. His abdominal pain wax and wanes. He is tolerating diet. No reports of nausea. REVIEW OF ORGAN SYSTEMS: No fevers or chills. No shortness of breath. No new chest pain. PHYSICAL EXAM: VITALS: Reviewed CONSTITUTIONAL: Well developed and in no acute distress. EYES: Conjuctivae without sclera icterus. Extraocular movements grossly intact. HEAD, EARS, NOSE, THROAT: Moist buccal mucosa. Head is atraumatic, nor mocephalic. Hears conversational speech. No nasal drainage. NECK: No JV distention. No thyroidomegaly. RESPIRATORY: Non-labored respirations and equal bilateral excursions. No gross wheezes. CARDIOVASCULAR: Irregular rate and irregular rhythm ABDOMEN: Soft. Tender along right upper quadrant without peritonitis. MUSCULOSKELETAL: Nail and fingers with good capillary refill. SKIN: Warm and well perfused with good skin turgor. NEUROLOGIC: Cranial nerves II through XII grossly intact. Sensation upper and extremities intact. No focal or lateralizing signs. PSYCH: Flat affect. Alert and oriented to person. CLINCAL LABS: Reviewed. WBC elevated down from over 12,000 to 11,900. LFTs within normal limits. INR elevated down from 3.7 to 1.83. Total bilirubin elevated 1.3 EKG: Reviewed with rapid ventricular response. ASSESSMENT: 1. Bilateral upper abdominal pain present on admission 2. Chronic atrial fibrillation with rapid ventricular response 3. Bladder kidney stones 4. History of skin cancer 5. Diverticulosis of the sigmoid colon 6. Horseshoe kidney once kidney cyst 7. Leukocytosis present on admission 8. Cholelithiasis with cholecystitis 9. Chronic anticoagulation PLAN: 1. His INR still high above 1.5 where he is elevated risk for bleeding and complications for any surgical intervention. 2. Will re-assess for potential robotic cholecystectomy anticipated for Sunday. Objective - Vital Signs Vital signs: Vital Signs Temp 98.0 F 07/02/20 07:12 Pulse 87 07/02/20 07:12 Resp 18 07/02/20 07:12 BP 156/76 07/02/20 07:12 Pulse Ox 93 L 07/02/20 07:12 Intake & Output 07/01/20 07/02/20 07/02/20 18:59 06:59 18:59 Intake Total 600 Output Total 1390 Balance -1390 600 Intake: Intake, IV Titration 600 Amount Sodium Chloride 0.9% 1, 600 000 ml @ 75 mls/hr IV . [id number] [facility] Rx#:[id number] Output: Urine 1390 Other: Voiding Method Urinal Urinal Urinal Diaper Diaper Diaper # Voids 3 1 # Bowel Movements 2 1 - Labs CBC & Chem 7: 07/06/20 05:59 07/06/20 05:59 Labs: Abnormal Lab Results - Last 24 Hours (Table) 07/02/20 07/02/20 07/02/20 Range/Units 05:20 05:20 05:20 WBC 11.9 H (3.8-10.6) k/uL Neutrophils # 9.7 H (1.3-7.7) k/uL PT 18.9 H (9.9-11.9) sec INR 1.83 H (0.90-1.11) Chloride 95 L (96-109) mmol/L Anion Gap 17.90 H (4.00-12.00) mmol/L BUN/Creatinine Ratio 23.33 H (12.00-20.00) Ratio Total Bilirubin 1.3 H (0.3-1.2) mg/dL Albumin/Globulin Ratio 1.44 L (1.60-3.17) g/dL Assessment and Plan (1) Gallstones Status: Acute Code(s): K80.20 - CALCULUS OF GALLBLADDER W/O CHOLECYSTITIS W/O OBSTRUCTION SNOMED Code(s): 546077004 (2) Upper abdominal pain Status: Acute Code(s): R10.10 - UPPER ABDOMINAL PAIN, UNSPECIFIED SNOMED Code(s): 54322328 (3) Bladder calculi Status: Acute Code(s): N21.0 - CALCULUS IN BLADDER SNOMED Code(s): 92688502 (4) Diverticulosis Status: Acute Code(s): K57.90 - DVRTCLOS OF INTEST, PART UNSP, W/O PERF OR ABSCESS W/O BLEED SNOMED Code(s): 128182057 (5) Hypertensive heart disease Status: Acute Code(s): I11.9 - HYPERTENSIVE HEART DISEASE WITHOUT HEART FAILURE SNOMED Code(s): 37596534 (6) Anticoagulant long-term use Status: Acute Code(s): Z79.01 - PENITENTIARY (CURRENT) USE OF ANTICOAGULANTS SNOMED Code(s): 849975697 (7) Anticoagulant overdosage Status: Acute Code(s): T45.511A - POISONING BY ANTICOAGULANTS, ACCIDENTAL, INIT SNOMED Code(s): 93727441 (8) Atrial fibrillation with RVR Status: Acute Code(s): I48.91 - UNSPECIFIED ATRIAL FIBRILLATION SNOMED Code(s): 902290552036925 (9) Dehydration Status: Acute Code(s): E86.0 - DEHYDRATION SNOMED Code(s): 95452682 (10) Weakness Status: Acute Code(s): R53.1 - WEAKNESS SNOMED Code(s): 15047701 (11) Calculus of kidney Status: Acute Code(s): N20.0 - CALCULUS OF KIDNEY SNOMED Code(s): 08507609 (12) Cholecystitis Status: Acute Code(s): K81.9 - CHOLECYSTITIS, UNSPECIFIED SNOMED Code(s): 69358571
--- NOTE | 2020-07-02 13:10 | P.PN ---
Subjective Progress Note Date: 07/02/20 Principal diagnosis: Cholecystitis, abdominal pain, right lung mass 80-year-old white male patient with multiple medical problems including COPD with baseline FEV1 of 45% of predicted, chronic A. fib with history of ablation, hypertension, hyperlipidemia, former smoker, chronic back pain, chronic neck pain, who came in on 06/30/2020 with complaints of weakness, one month history of abdominal pain in the right and left upper quadrant. Patient denies any blood in the stool, denies any nausea vomiting. Denied any fever or chills. Patient is also complaining of increased difficulty with breathing. Patient was in the emergency department 3 days prior and was discharged home with outpatient follow-up instruction however he was too weak to be able to do that. 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 CT angiogram of the chest completed in view of elevated d-dimer of 1.6 on 06/11 showed no evidence of pulmonary embolism, and ill-defined 24 mm spiculated opacity in the right lower lobe that could represent infectious process versus neoplasm. There was also enlarged right hilar lymph nodes. Lab data on 06/30/2020 showed a white blood cell count of 12, hemoglobin of 13.7, INR is 3.7, sodium is 135, the rest of the electrolytes were within normal limits, B1 is 21 and creatinine was 0.65. Troponin was less than 0.012, amylase and lipase were negative, LFTs were within normal limits, urinalysis showed 2+ ketones, trace blood, but no evidence of infection. Currently patient is undergoing surgical evaluation for bilateral upper quadrant abdominal pain, his abdomen remains tender, surgical services are following, his INR is still elevated at 3.7 his Coumadin is on hold for possibility of surgical intervention. He is getting MiraLAX and lactulose for constipation, he is on clear liquid diet, he's had no nausea. He denies any hemoptysis, he is not having any respiratory distress, he is on 2 L of oxygen and pulse ox 97%, he is afebrile. We are asked to see the patient in regards to the right lower lobe nodular density possibility of lung cancer. On 07/02/2020 patient seen in follow-up on medical floor, his abdominal pain although intermittent seems to have improved some. His abdomen is soft, mildly tender, no worsening dyspnea, although she does have some chronic congestion and he is able to bring up some yellowish colored phlegm. No fever overnight, is currently on room air, pulse ox is 93%, lung sounds reveal some scattered rhonchi, patient is receiving breathing treatments, he is on Zosyn for antibiotic coverage, he received a dose of IV Lasix yesterday, he is on Symbicort. His Coumadin remains on hold, she received 10 mg of vitamin K y esterday, today's INR is 1.8, his white count is relatively stable at 11.9, hemoglobin is 13.7, sodium is 141, potassium is 4.4, chloride is 95, BUN is 14, creatinine 0.6, lactic acid is 1.2, patient is not tachycardic, blood pressure is stable, his last lipase was 69, amylase was 39, urinalysis did not show evidence of infection, nausea or vomiting, patient had one bowel movement last 24 hours. No diarrhea Objective - Vital Signs Vital signs: Vital Signs Temp 98.0 F 07/02/20 07:12 Pulse 87 07/02/20 07:12 Resp 18 07/02/20 07:12 BP 156/76 07/02/20 07:12 Pulse Ox 93 L 07/02/20 07:12 Intake & Output 07/01/20 07/02/20 07/02/20 18:59 06:59 18:59 Intake Total 600 Output Total 1390 225 Balance -1390 600 -225 Intake: Intake, IV Titration 600 Amount Sodium Chloride 0.9% 1, 600 000 ml @ 75 mls/hr IV . [id number] [facility] Rx#:[id number] Output: Urine 1390 225 Other: Voiding Method Urinal Urinal Urinal Diaper Diaper Diaper # Voids 3 1 # Bowel Movements 2 1 - Exam GENERAL EXAM: Alert, very pleasant, 80-year-old white male, on 2 L of oxygen and the pulse ox 93% comfortable in no apparent distress. HEAD: Normocephalic/atraumatic. EYES: Normal reaction of pupils, equal size. Conjunctiva pink, sclera white. NOSE: Clear with pink turbinates. THROAT: No erythema or exudates. NECK: No masses, no JVD, no thyroid enlargement, no adenopathy. CHEST: No chest wall deformity. Symmetrical expansion. LUNGS: Equal air entry with no crackles, wheeze, rhonchi or dullness. CVS: Irregular rate and rhythm, normal S1 and S2, no gallops, no murmurs, no rubs ABDOMEN: Soft, less distended, a bit tender, no hepatosplenomegaly, normal bowel sounds, no guarding or rigidity. EXTREMITIES: No clubbing, no edema, no cyanosis, 2+ pulses and upper and lower extremities. MUSCULOSKELETAL: Muscle strength and tone normal. SPINE: No scoliosis or deformity SKIN: No rashes CENTRAL NERVOUS SYSTEM: Alert and oriented -3. No focal deficits, tone is normal in all 4 extremities. PSYCHIATRIC: Alert and oriented -3. Appropriate affect. Intact judgment and insight. - Labs CBC & Chem 7: 07/02/20 05:20 07/02/20 05:20 Labs: Abnormal Lab Results - Last 24 Hours (Table) 07/02/20 07/02/20 07/02/20 Range/Units 05:20 05:20 05:20 WBC 11.9 H (3.8-10.6) k/uL Neutrophils # 9.7 H (1.3-7.7) k/uL PT 18.9 H (9.9-11.9) sec INR 1.83 H (0.90-1.11) Chloride 95 L (96-109) mmol/L Anion Gap 17.90 H (4.00-12.00) mmol/L BUN/Creatinine Ratio 23.33 H (12.00-20.00) Ratio Total Bilirubin 1.3 H (0.3-1.2) mg/dL Albumin/Globulin Ratio 1.44 L (1.60-3.17) g/dL Assessment and Plan Plan: Assessment: #1. Right lower lobe 24 mm spiculated opacity rule out possibility of lung cancer. CT angiogram was completed on 06/27/2020 in view of elevated d-dimer without evidence of pulmonary embolism and showed right lower lobe 24 mm opacity, and enlarged right hilar lymph nodes, and heterogeneous colorless opacities in the right lower lobe possibly infectious/inflammatory versus mild edema #2. Acute cholecystitis. Ultrasound of gallbladder showed moderately distended gallbladder, gallstone along the infundibulum of the gallbladder. CT of the abdomen showed moderate retained stool along the sigmoid colon, descending and transverse colon #3. Moderate constipation #4. Diverticulosis of the sigmoid colon #5. Horseshoe kidney #6. Bladder kidney stones #7. Chronic atrial fibrillation with RVR, on Coumadin, which is currently on hold for possibility of surgery #8. COPD with FEV1 of 45% of predicted #9. Chronic back and neck pain #10. History of skin cancer #11. Hypertension #12. Hyperlipidemia #13. Former smoker Plan: We will start the patient on nebulized bronchodilators, patient is already on empiric antibiotics, but vital signs have been stable, however he still having intermittent abdominal pain, recommend keeping the patient and monitoring him for possibility of worsening abdominal pain over the weekend and possibility of cholecystectomy over the weekend. We'll continue to follow I performed a history & physical examination of the patient and discussed their management with my nurse practitioner, Domonique Charles. I reviewed the nurse practitioner's note and agree with the documented findings and plan of care. Lung sounds are positive for diminished breath sounds. The findings and the impression was discussed with the patient. I attest to the documentation by the nurse practitioner. Time with Patient: Less than 30
[2020-07-02] MEDS: IPRATROPIUM-ALBUTEROL 3 ML NEB INHALATION SCH ×2 (15:20→19:26)
[2020-07-02] MEDS: HYDROcodone/APAP 7.5-325MG 1 EACH TAB PO PRN (20:53)
[2020-07-02] MEDS: ATORVASTATIN 10 MG TAB PO SCH (20:53)
--- NOTE | 2020-07-02 21:44 | P.PN ---
Progress Note - Text Progress Note Date: 07/02/20 Chief Complaint: Abdominal pain History of presenting complaint: This is a pleasant 80-year-old patient of Dr. Lozoya. 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 Patient lives with his mentally challenged son. Daughter lives next door. Patient for over 2 weeks been having abdominal distention. Normally has a bowel movement every day. Has not had a bowel movement for at least a week. Denies any nausea vomiting. No fever. No pain. Does use a walker. distended in the belly. Admitted with-severe obstipation. Also atrial fibrillation rapid ventricular rate. Received vitamin K for Coumadin reversal. Acute cholecystitis. With gallstones. Today-heart rate controlled. Intermittent abdominal pain. INR 1.8. Surgery postponed through Sunday. Review of systems: Was done for constitutional, cardiovascular, GI, pulmonary. relevant finding as above Active Medications Hydrocodone Bitart/Acetaminophen (Hydrocodone/Apap 7.5-325mg 1 Each Tab) 1 each PO Q6H PRN PRN Reason: Pain Last Admin: 07/02/20 20:53 Dose: 1 each Documented by: Albuterol/Ipratropium (Ipratropium-Albuterol 3 Ml Neb) 3 ml INHALATION RT-QID [facility] Last Admin: 07/02/20 19:26 Dose: 3 ml Documented by: Atorvastatin Calcium (Atorvastatin 10 Mg Tab) 10 mg PO HS [facility] Last Admin: 07/02/20 20:53 Dose: 10 mg Documented by: Budesonide/Formoterol Fumarate (Symbicort 160-4.5 Mcg Inhaler) 2 puff INHALATION RT-BID [facility] Last Admin: 07/02/20 19:28 Dose: 2 puff Documented by: Diltiazem HCl (Diltiazem Cd 120 Mg Cap.Er.24h) 120 mg PO DAILY [facility] Last Admin: 07/02/20 09:16 Dose: 120 mg Documented by: Hydromorphone HCl (Hydromorphone 1 Mg/Ml 1 Ml Syringe) 1 mg IVP Q3HR PRN PRN Reason: Pain Piperacillin Sod/Tazobactam (Sod 3.375 gm/ Sodium Chloride) 100 mls @ 25 mls/hr IVPB Q8H [facility] Last Admin: 07/02/20 20:53 Dose: 25 mls/hr Documented by: Lisinopril (Lisinopril 10 Mg Tab) 10 mg PO BID [facility] Last Admin: 07/02/20 20:53 Dose: 10 mg Documented by: Metoprolol Tartrate (Metoprolol Tartrate 25 Mg Tab) 25 mg PO BID [facility] Last Admin: 07/02/20 20:55 Dose: 25 mg Documented by: Past medical history to include: Atrial fibrillation, COPD, hypertension, skin cancer involving the left cheek, resected, chronic back pain, chronic back pain with radiculopathy number stent involving the right upper extremity in the hands, varicose veins, hypertension, hyperlipidemia, 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 Son is highly functional . Has home oxygen but does not use it. Daughter lives next dose. Does not smoke. No alcohol. Physical examination: VITAL SIGNS: 97.7, 94, 18, 154/74, 94% room air GENERAL: BMI 26.4, laying in bed. EYES: Pupils equal. Conjunctiva normal. HEENT: External appearance of nose and ears normal, oral cavity grossly normal. NECK: JVD not raised; masses not palpable. HEART: First and second heart sounds are normal; no edema. LUNGS: Respiratory rate normal; clear to auscultation. ABDOMEN: Soft, distended, no guarding rigidity some tenderness upper abdomen liver spleen not palpable, no masses palpable. PSYCH: Alert and oriented x3; mood and affect normal. INVESTIGATIONS, reviewed in the clinical context: July 02: White count 11.9 hemoglobin 13.7 INR 1.8 potassium 4.4 creatinine 0.6 July 01: INR 3.29 Abdominal ultrasound: Gallstones White count 12 hemoglobin 13.7 platelets 273 INR 3.7 potassium 4.1 bun 21 creatine 0.65 EKG tracing personally reviewed by me-atrial flutter fibrillation with a heart r ate of 120 Chest x-ray film personally reviewed by me-some Scattered infiltrates possibly chronic Abdominal x-ray film personally reviewed by me shows-scattered stool Element of ileus Assessment: -Bowel obstruction versus ileus with obstipation-responded to laxative -Persistent atrial flutter fibrillation rate uncontrolled A. fib now better controlled -COPD -Essential hypertension -Hyperlipidemia -Obstipation. Given laxative -Gallstones, with cholecystitis, acute Plan: Continue with IV Zosyn. An IV fluids. Since surgery scheduled for Sunday the put the patient on subcu Lovenox.
[2020-07-02] MEDS: ENOXAPARIN 80 MG/0.8 ML SYRINGE SQ SCH (22:23)
[2020-07-03] MEDS: PIPERACILLIN-TAZOBACTAM 3.375 GM in SODIUM CHLORIDE 0.9% 100 ML IVPB SCH ×3 (04:26→20:31)
[2020-07-03] MEDS: IPRATROPIUM-ALBUTEROL 3 ML NEB INHALATION SCH ×4 (07:28→19:26)
[2020-07-03] MEDS: SYMBICORT 160-4.5 MCG INHALER INHALATION SCH ×2 (07:28→19:27)
[2020-07-03 08:36] LABS: INR 1.2 (<1.2); Prothrombin Time 12.5 sec (9.0-12.0)
[2020-07-03] MEDS: METOPROLOL TARTRATE 25 MG TAB PO SCH ×2 (08:38→20:31)
[2020-07-03] MEDS: DILTIAZEM CD 120 MG CAP.ER.24H PO SCH (08:38)
[2020-07-03] MEDS: lisinopriL 10 MG TAB PO SCH ×2 (08:38→20:31)
[2020-07-03] MEDS: ENOXAPARIN 80 MG/0.8 ML SYRINGE SQ SCH ×2 (09:19→21:12)
--- NOTE | 2020-07-03 11:23 | P.PN ---
Subjective Progress Note Date: 07/03/20 Principal diagnosis: Cholecystitis Patient doing better today. Says his pain is improved. He is anxious to have the cholecystectomy performed. INR remains slightly elevated. Objective - Vital Signs Vital signs: Vital Signs Temp 98.0 F 07/03/20 07:58 Pulse 74 07/03/20 10:55 Resp 16 07/03/20 07:58 BP 129/70 07/03/20 07:58 Pulse Ox 94 L 07/03/20 07:58 Intake & Output 07/02/20 07/03/20 07/03/20 18:59 06:59 18:59 Intake Total 800 690 Output Total 225 Balance 575 690 Intake: IV 600 240 saline 600 240 Intake, IV Titration 100 100 Amount Piperacillin-Tazobactam 3 100 100 .375 gm In Sodium Chloride 0.9% 100 ml @ 25 mls/hr IVPB Q8H [facility] Rx#: [id number] Oral 100 350 Output: Urine 225 Other: Voiding Method Urinal Urinal Diaper Diaper # Voids 4 1 # Bowel Movements 1 - Exam Abdomen: Soft, nondistended, mild epigastric tenderness - Labs CBC & Chem 7: 07/02/20 05:20 07/02/20 05:20 Labs: Abnormal Lab Results - Last 24 Hours (Table) 07/03/20 Range/Units 06:03 PT 12.5 H (9.0-12.0) sec INR 1.2 H (<1.2) Assessment and Plan (1) Gallstones Narrative/Plan: 80-year-old male with cholecystitis. Continue antibiotics. Continue liquid diet. Recheck labs tomorrow. Plans for cholecystectomy Sunday. Current Visit: Yes Status: Acute Code(s): K80.20 - CALCULUS OF GALLBLADDER W/O CHOLECYSTITIS W/O OBSTRUCTION SNOMED Code(s): 429700345
--- NOTE | 2020-07-03 11:40 | P.PN ---
Subjective Progress Note Date: 07/03/20 80-year-old white male patient with multiple medical problems including COPD with baseline FEV1 of 45% of predicted, chronic A. fib with history of ablation, hypertension, hyperlipidemia, former smoker, chronic back pain, chronic neck pain, who came in on 06/30/2020 with complaints of weakness, one month history of abdominal pain in the right and left upper quadrant. Patient denies any blood in the stool, denies any nausea vomiting. Denied any fever or chills. Patient is also complaining of increased difficulty with breathing. Patient was in the emergency department 3 days prior and was discharged home with outpatient follow-up instruction however he was too weak to be able to do that. 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 CT angiogram of the chest completed in view of elevated d-dimer of 1.6 on 06/27/2020 showed no evidence of pulmonary embolism, and ill-defined 24 mm spiculated opacity in the right lower lobe that could represent infectious process versus neoplasm. There was also enlarged right hilar lymph nodes. Lab data on 06/30/2020 showed a white blood cell count of 12, hemoglobin of 13.7, INR is 3.7, sodium is 135, the rest of the electrolytes were within normal limits, B1 is 21 and creatinine was 0.65. Troponin was less than 0.012, amylase and lipase were negative, LFTs were within normal limits, urinalysis showed 2+ ketones, trace blood, but no evidence of infection. Currently patient is undergoing surgical evaluation for bilateral upper quadrant abdominal pain, his abdomen remains tender, surgical services are following, his INR is still elevated at 3.7 his Coumadin is on hold for possibility of surgical intervention. He is getting MiraLAX and lactulose for constipation, he is on clear liquid diet, he's had no nausea. He denies any hemoptysis, he is not havi ng any respiratory distress, he is on 2 L of oxygen and pulse ox 97%, he is afebrile. We are asked to see the patient in regards to the right lower lobe nodular density possibility of lung cancer. On 07/02/2020 patient seen in follow-up on medical floor, his abdominal pain although intermittent seems to have improved some. His abdomen is soft, mildly tender, no worsening dyspnea, although she does have some chronic congestion and he is able to bring up some yellowish colored phlegm. No fever overnight, is currently on room air, pulse ox is 93%, lung sounds reveal some scattered rhonchi, patient is receiving breathing treatments, he is on Zosyn for antibiotic coverage, he received a dose of IV Lasix yesterday, he is on Symbicort. His Coumadin remains on hold, she received 10 mg of vitamin K yesterday, today's INR is 1.8, his white count is relatively stable at 11.9, hemoglobin is 13.7, sodium is 141, potassium is 4.4, chloride is 95, BUN is 14, creatinine 0.6, lactic acid is 1.2, patient is not tachycardic, blood pressure is stable, his last lipase was 69, amylase was 39, urinalysis did not show evidence of infection, nausea or vomiting, patient had one bowel movement last 24 hours. No diarrhea 2020, the patient's pain is subsided. Abdomen is slightly distended. No sig nificant right upper quadrant tenderness. He moment yesterday and none for today. He is on IV fluids at KVO at 20 mL. He has a congested cough and is bringing up mucus which is well SLIGHTLY blood tinged. He is on room air oxygen for now. He is off anticoagulation his INR is down to 1.2 and the rest the blood work and electrodes are all within normal limits. The patient was seen by Dr. chairez today. He concurred to the fact that the patient is not hurting as much and his pain is improved. His cholecystectomy is still on schedule for Sunday. He remains on IV Zosyn for now. He is on liquid diet for now. Objective - Vital Signs Vital signs: Vital Signs Temp 98.0 F 07/03/20 07:58 Pulse 74 07/03/20 10:55 Resp 16 07/03/20 07:58 BP 129/70 07/03/20 07:58 Pulse Ox 94 L 07/03/20 07:58 Intake & Output 07/02/20 07/03/20 07/03/20 18:59 06:59 18:59 Intake Total 800 690 Output Total 225 Balance 575 690 Intake: IV 600 240 saline 600 240 Intake, IV Titration 100 100 Amount Piperacillin-Tazobactam 3 100 100 .375 gm In Sodium Chloride 0.9% 100 ml @ 25 mls/hr IVPB Q8H [facility] Rx#: [id number] Oral 100 350 Output: Urine 225 Other: Voiding Method Urinal Urinal Diaper Diaper # Voids 4 1 # Bowel Movements 1 - Exam GENERAL EXAM: Alert, very pleasant, 80-year-old white male, on 2 L of oxygen and the pulse ox 93% comfortable in no apparent distress. HEAD: Normocephalic/atraumatic. EYES: Normal reaction of pupils, equal size. Conjunctiva pink, sclera white. NOSE: Clear with pink turbinates. THROAT: No erythema or exudates. NECK: No masses, no JVD, no thyroid enlargement, no adenopathy. CHEST: No chest wall deformity. Symmetrical expansion. LUNGS: Equal air entry with no crackles, wheeze, rhonchi or dullness. CVS: Irregular rate and rhythm, normal S1 and S2, no gallops, no murmurs, no rubs ABDOMEN: Soft, less distended, a bit tender, no hepatosplenomegaly, normal bowel sounds, no guarding or rigidity. EXTREMITIES: No clubbing, no edema, no cyanosis, 2+ pulses and upper and lower extremities. MUSCULOSKELETAL: Muscle strength and tone normal. SPINE: No scoliosis or deformity SKIN: No rashes CENTRAL NERVOUS SYSTEM: Alert and oriented -3. No focal deficits, tone is normal in all 4 extremities. PSYCHIATRIC: Alert and oriented -3. Appropriate affect. Intact judgment and insight. - Labs CBC & Chem 7: 07/02/20 05:20 07/02/20 05:20 Labs: Abnormal Lab Results - Last 24 Hours (Table) 07/03/20 Range/Units 06:03 PT 12.5 H (9.0-12.0) sec INR 1.2 H (<1.2) Assessment and Plan Plan: #1. Right lower lobe 24 mm spiculated opacity rule out possibility of lung cancer. CT angiogram was completed on 06/27/2020 in view of elevated d-dimer without evidence of pulmonary embolism and showed right lower lobe 24 mm opacity, and enlarged right hilar lymph nodes, and heterogeneous colorless opacities in the right lower lobe possibly infectious/inflammatory versus mild edema #2. Acute cholecystitis. Ultrasound of gallbladder showed moderately distended gallbladder, gallstone along the infundibulum of the gallbladder. CT of the abdomen showed moderate retained stool along the sigmoid colon, descending and transverse colon #3. Moderate constipation #4. Diverticulosis of the sigmoid colon #5. Horseshoe kidney #6. Bladder kidney stones #7. Chronic atrial fibrillation with RVR, on Coumadin, which is currently on hold for possibility of surgery #8. COPD with FEV1 of 45% of predicted #9. Chronic back and neck pain #10. History of skin cancer #11. Hypertension #12. Hyperlipidemia #13. Former smoker Plan Hold anticoagulation and INR is down to 1.2 Continue IV Zosyn and Provide the patient incentive spirometer Clear liquid diet Cholecystectomy by Sunday Outpatient workup regarding the pulmonary nodule as discussed above Olivia the patient's pain is subsided. He does have probably some ongoing mild abdominal distention could be related to a component of an ileus.
--- NOTE | 2020-07-03 15:54 | P.PN ---
Subjective Progress Note Date: 07/03/20 This 80-year-old gentleman with history of hypertension and chronic atrial fibrillation admitted to the hospital with abdominal pain and is diagnosed to have cholecystitis. He is waiting to have cholecystectomy on Sunday. He is off anti-cognition therapy and his INR is about 1.2. Coumadin but is being held for anticipated surgery. His abdominal pain is much less at this time. His blood pressure 110/60. Pulse rate in the 70s. Saturation 92%. From Cardec standpoint patient seems to be stable. He is on metoprolol for rate control. Continue current medical therapy. Awaiting surgery for gallbladder disease. Objective - Vital Signs Vital signs: Vital Signs Temp 97.6 F 07/03/20 14:00 Pulse 72 07/03/20 15:27 Resp 16 07/03/20 14:00 BP 110/62 07/03/20 14:00 Pulse Ox 95 07/03/20 14:00 Intake & Output 07/02/20 07/03/20 07/03/20 18:59 06:59 18:59 Intake Total 800 690 Output Total 225 Balance 575 690 Intake: IV 600 240 saline 600 240 Intake, IV Titration 100 100 Amount Piperacillin-Tazobactam 3 100 100 .375 gm In Sodium Chloride 0.9% 100 ml @ 25 mls/hr IVPB Q8H [facility] Rx#: [id number] Oral 100 350 Output: Urine 225 Other: Voiding Method Urinal Urinal Diaper Diaper # Voids 4 1 # Bowel Movements 1 - Exam GENERAL EXAM: Patient is alert and oriented and appears to be in mild distress and also ill-looking HEENT: Normocephalic. Normal reaction of pupils, equal size, normal range of extraocular motion. No erythema or exudates in the throat. NECK: No masses, no nuchal rigidity. CHEST: No chest wall deformity. LUNGS: Equal air entry with no crackles or wheeze. HEART: S1 and S2 normal . Irregular heart sounds but distant ABDOMEN: No hepatosplenomegaly, normal bowel sounds, no guarding or rigidity. SKIN: No rashes CENTRAL NERVOUS SYSTEM: No focal deficits. EXTREMITIES: I'll edema - Labs CBC & Chem 7: 07/02/20 05:20 07/02/20 05:20 Labs: Abnormal Lab Results - Last 24 Hours (Table) 07/03/20 Range/Units 06:03 PT 12.5 H (9.0-12.0) sec INR 1.2 H (<1.2) Assessment and Plan (1) Chronic atrial fibrillation Current Visit: Yes Status: Acute Code(s): I48.20 - CHRONIC ATRIAL FIBRILLATION, UNSPECIFIED SNOMED Code(s): 401302619 (2) Cholecystitis Current Visit: Yes Status: Acute Code(s): K81.9 - CHOLECYSTITIS, UNSPECIFIED SNOMED Code(s): 45236453 (3) Essential hypertension Current Visit: Yes Status: Acute Code(s): I10 - ESSENTIAL (PRIMARY) HYPERTENSION SNOMED Code(s): 55570540 Plan: Continue current therapy. Possible cholecystectomy and Sunday. We'll continue the small dose of diuretics and also metoprolol. We'll follow
--- NOTE | 2020-07-03 20:19 | P.PN ---
Progress Note - Text Progress Note Date: 07/03/20 Chief Complaint: Abdominal pain History of presenting complaint: This is a pleasant 80-year-old patient of Dr. Lozoya. 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 Patient lives with his mentally challenged son. Daughter lives next door. Patient for over 2 weeks been having abdominal distention. Normally has a bowel movement every day. Has not had a bowel movement for at least a week. Denies any nausea vomiting. No fever. No pain. Does use a walker. distended in the belly. Admitted with-severe obstipation. Also atrial fibrillation rapid ventricular rate. Received vitamin K for Coumadin reversal. Acute cholecystitis. With gallstones. On IV Zosyn. Today-heart rate controlled. Intermittent abdominal pain. On liquid diet. Scheduled for surgery on Sunday. Review of systems: Was done for constitutional, cardiovascular, GI, pulmonary. relevant finding as above Active Medications Hydrocodone Bitart/Acetaminophen (Hydrocodone/Apap 7.5-325mg 1 Each Tab) 1 each PO Q6H PRN PRN Reason: Pain Last Admin: 07/02/20 20:53 Dose: 1 each Documented by: Albuterol/Ipratropium (Ipratropium-Albuterol 3 Ml Neb) 3 ml INHALATION RT-QID [facility] Last Admin: 07/03/20 19:26 Dose: 3 ml Documented by: Atorvastatin Calcium (Atorvastatin 10 Mg Tab) 10 mg PO HS [facility] Last Admin: 07/02/20 20:53 Dose: 10 mg Documented by: Budesonide/Formoterol Fumarate (Symbicort 160-4.5 Mcg Inhaler) 2 puff INHALATION RT-BID [facility] Last Admin: 07/03/20 19:27 Dose: 2 puff Documented by: Diltiazem HCl (Diltiazem Cd 120 Mg Cap.Er.24h) 120 mg PO DAILY [facility] Last Admin: 07/03/20 08:38 Dose: 120 mg Documented by: Enoxaparin Sodium (Enoxaparin 80 Mg/0.8 Ml Syringe) 80 mg SQ Q12H [facility] Last Admin: 07/03/20 09:19 Dose: 80 mg Documented by: Hydromorphone HCl (Hydromorphone 1 Mg/Ml 1 Ml Syringe) 1 mg IVP Q3HR PRN PRN Reason: Pain Piperacillin Sod/Tazobactam (Sod 3.375 gm/ Sodium Chloride) 100 mls @ 25 mls/hr IVPB Q8H [facility] Last Admin: 07/03/20 13:17 Dose: 25 mls/hr Documented by: Lisinopril (Lisinopril 10 Mg Tab) 10 mg PO BID [facility] Last Admin: 07/03/20 08:38 Dose: 10 mg Documented by: Metoprolol Tartrate (Metoprolol Tartrate 25 Mg Tab) 25 mg PO BID [facility] Last Admin: 07/03/20 08:38 Dose: 25 mg Documented by: Past medical history to include: Atrial fibrillation, COPD, hypertension, skin cancer involving the left cheek, resected, chronic back pain, chronic back pain with radiculopathy number stent involving the right upper extremity in the hands, varicose veins, hypertension, hyperlipidemia, 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 Son is highly functional . Has home oxygen but does not use it. Daughter lives next dose. Does not smoke. No alcohol. Physical examination: VITAL SIGNS: 97.6, 76, 16, 1 10/6 2, 95% room air GENERAL: BMI 26.4, laying in bed. EYES: Pupils equal. Conjunctiva normal. HEENT: External appearance of nose and ears normal, oral cavity grossly normal. NECK: JVD not raised; masses not palpable. HEART: First and second heart sounds are normal; no edema. LUNGS: Respiratory rate normal; clear to auscultation. ABDOMEN: Soft, distended, no guarding rigidity some tenderness upper abdomen liver spleen not palpable, no masses palpable. PSYCH: Alert and oriented x3; mood and affect normal. INVESTIGATIONS, reviewed in the clinical context: July 02: White count 11.9 hemoglobin 13.7 INR 1.8 potassium 4.4 creatinine 0.6 July 01: INR 3.29 Abdominal ultrasound: Gallstones White count 12 hemoglobin 13.7 platelets 273 INR 3.7 potassium 4.1 bun 21 creatine 0.65 EKG tracing personally reviewed by me-atrial flutter fibrillation with a heart rate of 120 Chest x-ray film personally reviewed by me-some Scattered infiltrates possibly chronic Abdominal x-ray film personally reviewed by me shows-scattered stool Element of ileus Assessment: -Bowel obstruction versus ileus with obstipation-responded to laxative -Persistent atrial flutter fibrillation rate uncontrolled A. fib now better controlled -COPD -Essential hypertension -Hyperlipidemia -Obstipation. Given laxative -Gallstones, with cholecystitis, acute Plan: Continue with IV Zosyn. Liquid diet. IV fluids. Surgery on Sunday
[2020-07-03] MEDS: HYDROcodone/APAP 7.5-325MG 1 EACH TAB PO PRN (20:30)
[2020-07-03] MEDS: ATORVASTATIN 10 MG TAB PO SCH (20:31)
[2020-07-04] MEDS ORDERED: HALOPERIDOL LACTATE 5 MG/ML 1 ML VIAL IM PRN (03:50)
[2020-07-04 06:27] LABS: Basophils # (A) 0.1 k/uL (0-0.2); Basophils % (A) 1 %; Eosinophils # (A) 0.2 k/uL (0-0.7); Eosinophils % (A) 2 %; HGB 14.4 gm/dL (13.0-17.5); Lymphocytes # (A) 1.3 k/uL (1.0-4.8); Lymphocytes % (A) 14 %; MCH 29.9 pg (25.0-35.0); MCHC 33.6 g/dL (31.0-37.0); MCV 89.1 fL (80.0-100.0); Mean Platelet Volume 7.6; Monocytes # (A) 0.6 k/uL (0-1.0); Monocytes % (A) 6 %; Neutrophils # (A) 7.1 k/uL (1.3-7.7); Neutrophils % (A) 76 %; Platelet Count 350 k/uL (150-450); RBC 4.82 m/uL (4.30-5.90); WBC 9.3 k/uL (3.8-10.6)
[2020-07-04] MEDS: PIPERACILLIN-TAZOBACTAM 3.375 GM in SODIUM CHLORIDE 0.9% 100 ML IVPB SCH ×3 (06:36→19:58)
[2020-07-04 07:37] LABS: INR 1.1 (<1.2)
[2020-07-04] MEDS: IPRATROPIUM-ALBUTEROL 3 ML NEB INHALATION SCH ×4 (08:09→19:33)
[2020-07-04] MEDS: SYMBICORT 160-4.5 MCG INHALER INHALATION SCH ×2 (08:09→19:33)
[2020-07-04 09:03] LABS: African American GFR (CKD) 103.3 (60.0-200.0); Albumin 4.1 g/dL (3.80-4.90); Albumin/Globulin Ratio 1.41 (1.60-3.17); Anion Gap 14.1 mmol/L (4.00-12.00); BUN/Creat Ratio 14.29 Ratio (12.00-20.00); Calcium 9.3 mg/dL (8.7-10.3); Carbon Dioxide 28.9 mmol/L (21.6-31.8); Globulin 2.9 g/dL (1.6-3.3); Non-African American GFR(CKD) 89.1 (60.0-200.0); Potassium 3.6 mmol/L (3.5-5.5); Total Bilirubin 1.2 mg/dL (0.3-1.2)
[2020-07-04] MEDS: DILTIAZEM CD 120 MG CAP.ER.24H PO SCH (09:40)
[2020-07-04] MEDS: ENOXAPARIN 80 MG/0.8 ML SYRINGE SQ SCH (09:41)
[2020-07-04] MEDS: lisinopriL 10 MG TAB PO SCH ×2 (09:41→19:56)
[2020-07-04] MEDS: METOPROLOL TARTRATE 25 MG TAB PO SCH ×2 (09:41→19:56)
--- NOTE | 2020-07-04 11:23 | P.PN ---
Subjective Progress Note Date: 07/04/20 80-year-old white male patient with multiple medical problems including COPD with baseline FEV1 of 45% of predicted, chronic A. fib with history of ablation, hypertension, hyperlipidemia, former smoker, chronic back pain, chronic neck pain, who came in on 06/30/2020 with complaints of weakness, one month history of abdominal pain in the right and left upper quadrant. Patient denies any blood in the stool, denies any nausea vomiting. Denied any fever or chills. Patient is also complaining of increased difficulty with breathing. Patient was in the emergency department 3 days prior and was discharged home with outpatient follow-up instruction however he was too weak to be able to do that. 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 CT angiogram of the chest completed in view of elevated d-dimer of 1.6 on 06/27/2020 showed no evidence of pulmonary embolism, and ill-defined 24 mm spiculated opacity in the right lower lobe that could represent infectious process versus neoplasm. There was also enlarged right hilar lymph nodes. Lab data on 06/30/2020 showed a white blood cell count of 12, hemoglobin of 13.7, INR is 3.7, sodium is 135, the rest of the electrolytes were within normal limits, B1 is 21 and creatinine was 0.65. Troponin was less than 0.012, amylase and lipase were negative, LFTs were within normal limits, urinalysis showed 2+ ketones, trace blood, but no evidence of infection. Currently patient is undergoing surgical evaluation for bilateral upper quadrant abdominal pain, his abdomen remains tender, surgical services are following, his INR is still elevated at 3.7 his Coumadin is on hold for possibility of surgical intervention. He is getting MiraLAX and lactulose for constipation, he is on clear liquid diet, he's had no nausea. He denies any hemoptysis, he is not havi ng any respiratory distress, he is on 2 L of oxygen and pulse ox 97%, he is afebrile. We are asked to see the patient in regards to the right lower lobe nodular density possibility of lung cancer. On 07/02/2020 patient seen in follow-up on medical floor, his abdominal pain although intermittent seems to have improved some. His abdomen is soft, mildly tender, no worsening dyspnea, although she does have some chronic congestion and he is able to bring up some yellowish colored phlegm. No fever overnight, is currently on room air, pulse ox is 93%, lung sounds reveal some scattered rhonchi, patient is receiving breathing treatments, he is on Zosyn for antibiotic coverage, he received a dose of IV Lasix yesterday, he is on Symbicort. His Coumadin remains on hold, she received 10 mg of vitamin K yesterday, today's INR is 1.8, his white count is relatively stable at 11.9, hemoglobin is 13.7, sodium is 141, potassium is 4.4, chloride is 95, BUN is 14, creatinine 0.6, lactic acid is 1.2, patient is not tachycardic, blood pressure is stable, his last lipase was 69, amylase was 39, urinalysis did not show evidence of infection, nausea or vomiting, patient had one bowel movement last 24 hours. No diarrhea 07/03 2020, the patient's pain is subsided. Abdomen is slightly distended. No s ignificant right upper quadrant tenderness. He moment yesterday and none for today. He is on IV fluids at KVO at 20 mL. He has a congested cough and is bringing up mucus which is well SLIGHTLY blood tinged. He is on room air oxygen for now. He is off anticoagulation his INR is down to 1.2 and the rest the blood work and electrodes are all within normal limits. The patient was seen by Dr. chairez today. He concurred to the fact that the patient is not hurting as much and his pain is improved. His cholecystectomy is still on schedule for Sunday. He remains on IV Zosyn for now. He is on liquid diet for now. On 07/04/2020, patient is sores/along the right side of the body, right upper a bdomen and wrapped rib cage in addition to some vague diffuse abdominal pain. Appetite is down. No significant shortness of breath. He has a congested cough. Unable to bring up much sputum.His white cell count is at 9.3 with a hemoglobin of 14.4. Correlation profile is within normal limits with an INR of 1.1. The BUNs is at 10 , creatinine is at 0.7, sodium is at 138. Liver function tests are within normal. Bilirubin is down to 1.2. AST 30, ALT is 21, and his last BM was yesterday and he had no diarrhea and he has no fever or chills and IV F is at 20 cc/ hr Objective - Vital Signs Vital signs: Vital Signs Temp 98.0 F 07/04/20 08:00 Pulse 88 07/04/20 08:18 Resp 20 07/04/20 08:00 BP 168/85 07/04/20 08:00 Pulse Ox 94 L 07/04/20 08:00 Intake & Output 07/03/20 07/04/20 07/04/20 18:59 06:59 18:59 Intake Total 820 120 Output Total 800 Balance 20 120 Intake: Intake, IV Titration 100 Amount Piperacillin-Tazobactam 3 100 .375 gm In Sodium Chloride 0.9% 100 ml @ 25 mls/hr IVPB Q8H [facility] Rx#: [id number] Oral 720 120 Output: Urine 800 Other: Voiding Method Urinal Diaper # Voids 1 - Exam GENERAL EXAM: Alert, very pleasant, 80-year-old white male, on 2 L of oxygen and the pulse ox 93% comfortable in no apparent distress. HEAD: Normocephalic/atraumatic. EYES: Normal reaction of pupils, equal size. Conjunctiva pink, sclera white. NOSE: Clear with pink turbinates. THROAT: No erythema or exudates. NECK: No masses, no JVD, no thyroid enlargement, no adenopathy. CHEST: No chest wall deformity. Symmetrical expansion. LUNGS: Equal air entry with no crackles, wheeze, rhonchi or dullness. CVS: Irregular rate and rhythm, normal S1 and S2, no gallops, no murmurs, no rubs ABDOMEN: Soft, less distended, a bit tender, no hepatosplenomegaly, normal bowel sounds, no guarding or rigidity. EXTREMITIES: No clubbing, no edema, no cyanosis, 2+ pulses and upper and lower extremities. MUSCULOSKELETAL: Muscle strength and tone normal. SPINE: No scoliosis or deformity SKIN: No rashes CENTRAL NERVOUS SYSTEM: Alert and oriented -3. No focal deficits, tone is normal in all 4 extremities. PSYCHIATRIC: Alert and oriented -3. Appropriate affect. Intact judgment and insight. - Labs CBC & Chem 7: 07/04/20 05:50 07/04/20 05:50 Labs: Abnormal Lab Results - Last 24 Hours (Table) 07/04/20 Range/Units 05:50 Chloride 95 L (96-109) mmol/L Anion Gap 14.10 H (4.00-12.00) mmol/L Albumin/Globulin Ratio 1.41 L (1.60-3.17) g/dL Assessment and Plan Plan: #1. Right lower lobe 24 mm spiculated opacity rule out possibility of lung cancer. CT angiogram was completed on 06/27/2020 in view of elevated d-dimer without evidence of pulmonary embolism and showed right lower lobe 24 mm opacity, and enlarged right hilar lymph nodes, and heterogeneous colorless opacities in the right lower lobe possibly infectious/inflammatory versus mild edema #2. Acute cholecystitis. Ultrasound of gallbladder showed moderately distended gallbladder, gallstone along the infundibulum of the gallbladder. CT of the abdomen showed moderate retained stool along the sigmoid colon, descending and transverse colon. Surgeries on the case #3. Moderate constipation #4. Diverticulosis of the sigmoid colon #5. Horseshoe kidney #6. Bladder kidney stones #7. Chronic atrial fibrillation with RVR, on Coumadin, which is currently on hold for possibility of surgery #8. COPD with FEV1 of 45% of predicted #9. Chronic back and neck pain #10. History of skin cancer #11. Hypertension #12. Hyperlipidemia #13. Former smoker Plan Hold anticoagulation and INR is down to 1.1 he is off anticoagulation for now Continue IV Zosyn Provide the patient incentive spirometer Clear liquid diet Cholecystectomy is scheduled for Sunday. Meanwhile we'll give the patient IV fluids at a rate of 75 mL an hour. Outpatient workup regarding the pulmonary nodule as discussed above Pulmonary status is stable. His last bowel movement was yesterday.
--- NOTE | 2020-07-04 12:36 | P.PN ---
Subjective Progress Note Date: 07/04/20 This 80-year-old gentleman with history of hypertension and chronic atrial fibrillation admitted to the hospital with abdominal pain and is diagnosed to have cholecystitis. He is waiting to have cholecystectomy on Sunday. He is off anti-cognition therapy and his INR is about 1.2. Coumadin but is being held for anticipated surgery. His abdominal pain is much less at this time. His blood pressure 110/60. Pulse rate in the 70s. Saturation 92%. From Cardec standpoint patient seems to be stable. He is on metoprolol for rate control. Continue current medical therapy. Awaiting surgery for gallbladder disease. 07/04/2020: This patient has history of hypertension and chronic atrial fibrillation who was admitted with abdominal pain and evidence of cholecystitis. He is off anti-cognition therapy and his INR is of normal. He still having some soreness in the abdomen and the back. Patient is afebrile. Heart rate is in the 80s to 90s. Lungs appeared to be clear. Heart is irregular. Lab values show normal white count. Hemoglobin is 14. Electoral lites are normal with creatinine of 0.7. Liver enzymes are normal. He is scheduled to have cholecystectomy tomorrow. No edema of the legs Objective - Vital Signs Vital signs: Vital Signs Temp 98.0 F 07/04/20 08:00 Pulse 90 07/04/20 12:07 Resp 20 07/04/20 08:00 BP 168/85 07/04/20 08:00 Pulse Ox 94 L 07/04/20 08:00 Intake & Output 07/03/20 07/04/20 07/04/20 18:59 06:59 18:59 Intake Total 820 120 Output Total 800 Balance 20 120 Intake: Intake, IV Titration 100 Amount Piperacillin-Tazobactam 3 100 .375 gm In Sodium Chloride 0.9% 100 ml @ 25 mls/hr IVPB Q8H [facility] Rx#: [id number] Oral 720 120 Output: Urine 800 Other: Voiding Method Urinal Diaper # Voids 1 - Exam GENERAL EXAM: Patient is alert and oriented and appears to be in mild distress and also ill-looking HEENT: Normocephalic. Normal reaction of pupils, equal size, normal range of extraocular motion. No erythema or exudates in the throat. NECK: No masses, no nuchal rigidity. CHEST: No chest wall deformity. LUNGS: Equal air entry with no crackles or wheeze. HEART: S1 and S2 normal . Irregular heart sounds but distant ABDOMEN: No hepatosplenomegaly, normal bowel sounds, no guarding or rigidity. SKIN: No rashes CENTRAL NERVOUS SYSTEM: No focal deficits. EXTREMITIES: No edema - Labs CBC & Chem 7: 07/04/20 05:50 07/04/20 05:50 Labs: Abnormal Lab Results - Last 24 Hours (Table) 07/04/20 Range/Units 05:50 Chloride 95 L (96-109) mmol/L Anion Gap 14.10 H (4.00-12.00) mmol/L Albumin/Globulin Ratio 1.41 L (1.60-3.17) g/dL Assessment and Plan (1) Chronic atrial fibrillation Current Visit: Yes Status: Acute Code(s): I48.20 - CHRONIC ATRIAL FIBRILLATION, UNSPECIFIED SNOMED Code(s): 850815062 (2) Cholecystitis Current Visit: Yes Status: Acute Code(s): K81.9 - CHOLECYSTITIS, UNSPECIFIED SNOMED Code(s): 34999248 (3) Essential hypertension Current Visit: Yes Status: Acute Code(s): I10 - ESSENTIAL (PRIMARY) HYPERTENSION SNOMED Code(s): 06574454 Plan: Patient is still in discomfort with abdominal pain and back pain. Hemodynamic ally stable. Afebrile. Waiting to have surgery on Sunday
--- NOTE | 2020-07-04 12:47 | P.PN ---
Subjective Progress Note Date: 07/04/20 Principal diagnosis: Cholecystitis Patient says his pain in the right upper abdomen is slightly more today. White blood cell count was normal. Liver enzymes are normal. INR 1.1. Objective - Vital Signs Vital signs: Vital Signs Temp 98.0 F 07/04/20 08:00 Pulse 90 07/04/20 12:07 Resp 20 07/04/20 08:00 BP 168/85 07/04/20 08:00 Pulse Ox 94 L 07/04/20 08:00 Intake & Output 07/03/20 07/04/20 07/04/20 18:59 06:59 18:59 Intake Total 820 120 Output Total 800 Balance 20 120 Intake: Intake, IV Titration 100 Amount Piperacillin-Tazobactam 3 100 .375 gm In Sodium Chloride 0.9% 100 ml @ 25 mls/hr IVPB Q8H [facility] Rx#: [id number] Oral 720 120 Output: Urine 800 Other: Voiding Method Urinal Diaper # Voids 1 - Exam Abdomen: Soft, nondistended, mild epigastric tenderness - Labs CBC & Chem 7: 07/04/20 05:50 07/04/20 05:50 Labs: Abnormal Lab Results - Last 24 Hours (Table) 07/04/20 Range/Units 05:50 Chloride 95 L (96-109) mmol/L Anion Gap 14.10 H (4.00-12.00) mmol/L Albumin/Globulin Ratio 1.41 L (1.60-3.17) g/dL Assessment and Plan (1) Gallstones Narrative/Plan: Patient with persistent upper abdominal pain. INR is now normalized. Liver enzymes look good. Plans are underway for robotic cholecystectomy tomorrow. Current Visit: Yes Status: Acute Code(s): K80.20 - CALCULUS OF GALLBLADDER W/O CHOLECYSTITIS W/O OBSTRUCTION SNOMED Code(s): 547758402
[2020-07-04] MEDS: SODIUM CHLORIDE 0.9% 1,000 ML IV SCH (14:05)
--- NOTE | 2020-07-04 18:36 | P.PN ---
Progress Note - Text Progress Note Date: 07/04/20 Chief Complaint: Abdominal pain History of presenting complaint: This is a pleasant 80-year-old patient of Dr. Lozoya. 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 Patient lives with his mentally challenged son. Daughter lives next door. Patient for over 2 weeks been having abdominal distention. Normally has a bowel movement every day. Has not had a bowel movement for at least a week. Denies any nausea vomiting. No fever. No pain. Does use a walker. distended in the belly. Admitted with-severe obstipation. Also atrial fibrillation rapid ventricular rate. Received vitamin K for Coumadin reversal. Acute cholecystitis. With gallstones. On IV Zosyn. Today-Intermittent abdominal pain. No new issues.. No nausea vomiting. No chest pain. Review of systems: Was done for constitutional, cardiovascular, GI, pulmonary. relevant finding as above Active Medications Hydrocodone Bitart/Acetaminophen (Hydrocodone/Apap 7.5-325mg 1 Each Tab) 1 each PO Q6H PRN PRN Reason: Pain Last Admin: 07/03/20 20:30 Dose: 1 each Documented by: Albuterol/Ipratropium (Ipratropium-Albuterol 3 Ml Neb) 3 ml INHALATION RT-QID [facility] Last Admin: 07/04/20 15:35 Dose: Not Given Documented by: Atorvastatin Calcium (Atorvastatin 10 Mg Tab) 10 mg PO HS [facility] Last Admin: 07/03/20 20:31 Dose: 10 mg Documented by: Budesonide/Formoterol Fumarate (Symbicort 160-4.5 Mcg Inhaler) 2 puff INHALATION RT-BID [facility] Last Admin: 07/04/20 08:09 Dose: 2 puff Documented by: Diltiazem HCl (Diltiazem Cd 120 Mg Cap.Er.24h) 120 mg PO DAILY [facility] Last Admin: 07/04/20 09:40 Dose: 120 mg Documented by: Enoxaparin Sodium (Enoxaparin 80 Mg/0.8 Ml Syringe) 80 mg SQ Q12H [facility] Last Admin: 07/04/20 09:41 Dose: 80 mg Documented by: Haloperidol Lactate (Haloperidol Lactate 5 Mg/Ml 1 Ml Vial) 5 mg IM ONCE PRN PRN Reason: Agitation or Acute Psychosis Last Admin: 07/04/20 04:00 Dose: 5 mg Documented by: Hydromorphone HCl (Hydromorphone 1 Mg/Ml 1 Ml Syringe) 1 mg IVP Q3HR PRN PRN Reason: Pain Piperacillin Sod/Tazobactam (Sod 3.375 gm/ Sodium Chloride) 100 mls @ 25 mls/hr IVPB Q8H [facility] Last Admin: 07/04/20 14:05 Dose: 25 mls/hr Documented by: Sodium Chloride (Saline 0.9%) 1,000 mls @ 75 mls/hr IV .[id number] [facility] Last Admin: 07/04/20 14:05 Dose: 75 mls/hr Documented by: Lisinopril (Lisinopril 10 Mg Tab) 10 mg PO BID [facility] Last Admin: 07/04/20 09:41 Dose: 10 mg Documented by: Metoprolol Tartrate (Metoprolol Tartrate 25 Mg Tab) 25 mg PO BID [facility] Last Admin: 07/04/20 09:41 Dose: 25 mg Documented by: Past medical history to include: Atrial fibrillation, COPD, hypertension, skin cancer involving the left cheek, resected, chronic back pain, chronic back pain with radiculopathy number stent involving the right upper extremity in the hands, varicose veins, hypertension, hyperlipidemia, 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 Son is highly functional . Has home oxygen but does not use it. Daughter lives next dose. Does not smoke. No alcohol. Physical examination: VITAL SIGNS: 97.5, 76, 16, 1 6192, 95% room air GENERAL: BMI 26.4, laying in bed. EYES: Pupils equal. Conjunctiva normal. HEENT: External appearance of nose and ears normal, oral cavity grossly normal. NECK: JVD not raised; masses not palpable. HEART: First and second heart sounds are normal; no edema. LUNGS: Respiratory rate normal; clear to auscultation. ABDOMEN: Soft, distended, no guarding rigidity some tenderness upper abdomen liver spleen not palpable, no masses palpable. PSYCH: Alert and oriented x3; mood and affect normal. INVESTIGATIONS, reviewed in the clinical context: July 04: White count 9.3 hemoglobin 14.4 INR 1.1 progression 3.6 creatinine 0.7 July 02: White count 11.9 hemoglobin 13.7 INR 1.8 potassium 4.4 creatinine 0.6 July 01: INR 3.29 Abdominal ultrasound: Gallstones White count 12 hemoglobin 13.7 platelets 273 INR 3.7 potassium 4.1 bun 21 creatine 0.65 EKG tracing personally reviewed by me-atrial flutter fibrillation with a heart rate of 120 Chest x-ray film personally reviewed by me-some Scattered infiltrates possibly chronic Abdominal x-ray film personally reviewed by me shows-scattered stool Element of ileus Previous testing: CT scan of the abdomen pelvis [06/27/2020] horseshoe kidney, colonic diver ticulosis, T9, T12 fracture-age indeterminate CT of the chest [06/27/2020] 24 mm. Spiculated opacity right lower lobe. Some groundglass opacities. Some vertebral thoracic compression Assessment: -Bowel obstruction versus ileus with obstipation-responded to laxative -Persistent atrial flutter fibrillation rate uncontrolled A. fib now better controlled -COPD -Essential hypertension -Hyperlipidemia -Obstipation. Given laxative-responded well -Gallstones, with cholecystitis, acute-pending surgery -Horseshoe kidney -Chronic diverticulosis, asymptomatic -Multiple level thoracic vertebra compression fracture -24 mm pink clear to bases right lower lobe-to been followed by Dr. Cifuentes - Plan: Continue with IV Zosyn. Liquid diet. IV fluids. Surgery on Sunday. Discussed with patient. Stop Lovenox today. Nothing by mouth after midnight except oral medications.
[2020-07-04] MEDS: HYDROcodone/APAP 7.5-325MG 1 EACH TAB PO PRN (19:56)
[2020-07-04] MEDS: ATORVASTATIN 10 MG TAB PO SCH (19:56)
[2020-07-05] MEDS: HYDROmorphone 1 MG/ML 1 ML SYRINGE IVP PRN ×2 (00:07→22:50)
--- NOTE | 2020-07-05 05:16 | P.HPADDEND ---
H&P Addendum H&P Addendum Date: 07/05/20 INR improved. WBC within normal limits. Will proceed with robotic cholecystectomy.
[2020-07-05 05:41] LABS: Basophils # (A) 0.1 k/uL (0-0.2); Basophils % (A) 0 %; Eosinophils # (A) 0.2 k/uL (0-0.7); Eosinophils % (A) 2 %; HCT 40.9 % (39.0-53.0); HGB 13.4 gm/dL (13.0-17.5); Lymphocytes % (A) 17 %; MCH 29.8 pg (25.0-35.0); MCHC 32.7 g/dL (31.0-37.0); MCV 91.2 fL (80.0-100.0); Mean Platelet Volume 7.8; Monocytes % (A) 17 %; Neutrophils # (A) 7.4 k/uL (1.3-7.7); Neutrophils % (A) 62 %; Platelet Count 348 k/uL (150-450); RBC 4.49 m/uL (4.30-5.90); RDW 13.2 % (11.5-15.5); WBC 11.9 k/uL (3.8-10.6)
[2020-07-05] MEDS: SODIUM CHLORIDE 0.9% 1,000 ML IV SCH ×2 (05:51→20:44)
[2020-07-05] MEDS: PIPERACILLIN-TAZOBACTAM 3.375 GM in SODIUM CHLORIDE 0.9% 100 ML IVPB SCH ×3 (05:52→20:57)
[2020-07-05] MEDS: SYMBICORT 160-4.5 MCG INHALER INHALATION SCH ×2 (08:14→21:11)
[2020-07-05] MEDS: IPRATROPIUM-ALBUTEROL 3 ML NEB INHALATION SCH ×4 (08:14→21:11)
[2020-07-05] MEDS: METOPROLOL TARTRATE 25 MG TAB PO SCH ×2 (08:22→20:48)
[2020-07-05 09:26] LABS: African American GFR (CKD) 97.8 (60.0-200.0); Albumin 3.8 g/dL (3.80-4.90); Albumin/Globulin Ratio 1.41 (1.60-3.17); Anion Gap 12.3 mmol/L (4.00-12.00); Calcium 9.1 mg/dL (8.7-10.3); Carbon Dioxide 26.7 mmol/L (21.6-31.8); Globulin 2.7 g/dL (1.6-3.3); Non-African American GFR(CKD) 84.4 (60.0-200.0); Potassium 5.1 mmol/L (3.5-5.5); Total Protein 6.5 g/dL (6.2-8.2)
[2020-07-05] MEDS ORDERED: LACTATED RINGERS 1,000 ML IV ONE (10:27)
[2020-07-05] MEDS ORDERED: INDOCYANINE GREEN 25 MG VIAL IV STA (10:43)
--- NOTE | 2020-07-05 10:43 | P.PN ---
Subjective Progress Note Date: 07/05/20 HISTORY OF PRESENT ILLNESS: Patient examined this morning at the bedside. He denies chest pain or pressure. He denies shortness of breath. He continues to report mild abdominal pain. He is scheduled for robotic cholecystectomy today. PHYSICAL EXAM: VITAL SIGNS: Reviewed. GENERAL: Well-developed in no acute distress. NECK: Supple. No JVD or thyromegaly LUNGS: Respirations even and unlabored. Lungs essentially clear to auscultation bilaterally. HEART: Irregular rate and rhythm. S1 and S2 heard. EXTREMITIES: Normal range of motion. No clubbing or cyanosis. Peripheral pulses intact. No lower extremity edema ASSESSMENT: Abdominal pain Leukocytosis Chronic persistent atrial fibrillation with RVR, heart rate currently controll ed, on anticoagulation with Coumadin Supratherapeutic INR, resolved Hypertension Hyperlipidemia PLAN: Continue to hold Coumadin. Resume postoperatively when cleared with surgery Continue additional cardiac medications The patient has no complaints of angina and is currently euvolemic without evidence of heart failure Patient is scheduled for robotic cholecystectomy today. We will continue to follow along with patient postoperatively. Nurse practitioner note has been reviewed by physician. Signing provider agrees with the documented findings, assessment, and plan of care. Objective - Vital Signs Vital signs: Vital Signs Temp 97.9 F 07/05/20 10:14 Pulse 91 07/05/20 10:14 Resp 16 07/05/20 10:14 BP 159/80 07/05/20 10:14 Pulse Ox 98 07/05/20 10:14 Intake & Output 07/04/20 07/05/20 07/05/20 18:59 06:59 18:59 Intake Total 1560 500 Balance 1560 500 Intake: Intake, IV Titration 600 500 Amount Piperacillin-Tazobactam 3 200 200 .375 gm In Sodium Chloride 0.9% 100 ml @ 25 mls/hr IVPB Q8H [facility] Rx#: [id number] Sodium Chloride 0.9% 1, 400 300 000 ml @ 75 mls/hr IV . [id number] [facility] Rx#:[id number] Oral 960 0 Other: Voiding Method Urinal Urinal Diaper Diaper # Voids 8 1 - Labs CBC & Chem 7: 07/05/20 05:19 07/05/20 05:19 Labs: Abnormal Lab Results - Last 24 Hours (Table) 07/05/20 07/05/20 Range/Units 05:19 05:19 WBC 11.9 H (3.8-10.6) k/uL Monocytes # 2.0 H (0-1.0) k/uL Anion Gap 12.30 H (4.00-12.00) mmol/L BUN 8.0 L (9.0-27.0) mg/dL BUN/Creatinine Ratio 10.00 L (12.00-20.00) Ratio AST 39 H (14-35) U/L Albumin/Globulin Ratio 1.41 L (1.60-3.17) g/dL
[2020-07-05] MEDS ORDERED: HEPARIN SODIUM,PORCINE 5,000 UNIT/ML 1 ML VIAL ONE (12:05)
[2020-07-05] MEDS ORDERED: HEPARIN SODIUM,PORCINE 5,000 UNIT/ML 1 ML VIAL SQ ONE (12:09)
[2020-07-05] MEDS ORDERED: ESMOLOL 100 MG/10 ML VIAL ONE (12:28)
[2020-07-05] MEDS ORDERED: ONDANSETRON 4 MG/2 ML VIAL ONE (12:28)
[2020-07-05] MEDS ORDERED: ROCURONIUM 10 MG/ML (10 ML VIAL) IV ONE (12:28)
[2020-07-05] MEDS ORDERED: PHENYLEPHRINE 10 MG/ML VIAL ONE (12:28)
[2020-07-05] MEDS ORDERED: GLYCOPYRROLATE 0.2 MG/ML 2 ML VIAL ONE (12:28)
[2020-07-05] MEDS ORDERED: fentaNYL (PF) 50 MCG/ML 2 ML AMP ONE (12:28)
[2020-07-05] MEDS ORDERED: PROPOFOL 10 MG/ML 20 ML VIAL IV ONE (12:28)
[2020-07-05] MEDS ORDERED: LIDOCAINE 1% INJ 10MG/ML (20 ML MDV) ONE (12:28)
[2020-07-05] MEDS ORDERED: DEXAMETHASONE SOD PHOSPHATE 10 MG/ML 1 ML VIAL ONE (12:28)
[2020-07-05] MEDS ORDERED: NEOSTIGMINE 1 MG/ML 10 ML VIAL ONE (12:28)
[2020-07-05] MEDS ORDERED: LIDOCAINE 1%-EPI 1:100,000 20 ML VIAL SQ ONE (12:59)
[2020-07-05] MEDS ORDERED: NALOXONE 0.4 MG/ML 1 ML VIAL IV PRN (14:00)
[2020-07-05] MEDS ORDERED: ACETAMINOPHEN TAB 325 MG TAB PO PRN (14:00)
--- NOTE | 2020-07-05 14:03 | P.OP ---
Date of Procedure: 07/05/20 Description of Procedure: SURGEON: WAN MARS MD PREOPERATIVE DIAGNOSES: 1. Acute cholecystitis due to symptomatic gallstones with right upper quadrant abdominal pain 2. Atrial fibrillation with rapid ventricular response 3. Chronic anticoagulation 4. Hypertensive heart disease 5. Hyperlipidemia 6. Lung mass 7. Dementia POSTOPERATIVE DIAGNOSES: 1. Acute cholecystitis due to gallstones with hydrops cholecystitis 2. Atrial fibrillation with rapid ventricular response 3. Chronic anticoagulation 4. Hypertensive heart disease 5. Hyperlipidemia 6. Lung mass 7. Dementia OPERATION: Robotic-assisted da Tomas Xi laparoscopic cholecystectomy, multiport with FIREFLY ESTIMATED BLOOD LOSS: 5 mL. SPECIMENS REMOVED: Gallbladder. COMPLICATIONS: None. OPERATIVE FINDINGS: 1. Acute cholecystitis with distended gallbladder 2. Indocyanine green confirms acute cholecystitis with lack of contrast in gallbladder 3. Common bile duct within normal limits, without dilation INDICATIONS: The patient is a 80 year-old male who presents with acute cholecystitis. He was optimized for surgery cardiology consultation and pulmonary consultation. Chronic anticoagulation was reversed.Surgical intervention with cholecystectomy was described. Robotic assisted laparoscopic approach was described. Benefits and risks of the procedure including but not limited to bleeding, infection, injury to the biliary tree was reviewed. Informed consent was obtained. DESCRIPTION OF PROCEDURE: Patient was brought to the operating room, placed in supine position. After general induction, the abdomen had been prepped and draped in standard sterile fashion. The robotic da Tomas XI system was primed. After a timeout protocol was performed, the patient had been prepped and draped in standard sterile fashion. The patient was injected with indocyanine green. A 5 mm 0 degrees laparoscopic trocar entry was performed along the left upper quadrant. The abdomen insufflated to 15 mmHg pressure which was tolerated well. Diagnostic laparoscopy demonstrated no injury to bowel viscera or mesentery. The liver surface was unremarkable. A moderately distended gallbladder was identified adding complexity to the case. Next, two 8 mm robotic ports were placed along the right upper abdomen. The camera 8-mm port was maintained along the epigastrium. Another 8 mm port was placed along the left upper abdominal wall after exchanging the 5 mm port. Please note that the ports were placed at least 10 to 15 cm away from the target anatomy of the gallbladder. The robot was docked along the left lateral abdomen. The patient was repositioned in reverse Trendelenburg position with the right side up. Using a grasper for arm 3, a grasper for arm 4, including hook cautery for arm 1, the robotic system was docked and primed as described. Instruments were interchanged by the diagnostic assistant including hook cautery, Bovie cautery and clip appliers. I had sat at the console. The gallbladder was reflected towards the dome of the liver. The gallbladder was moderately distended adding complexity to the case. Initial dissection was performed on the gallbladder infundibulum using indocyanine green to illuminate the cystic duct and common bile duct. Dome down technique was performed removing the gallbladder from the hepatic fossa starting from the fundus towards the infundibulum. Using a sponge, the liver was reflected towards the diaphragm and starting at the gallbladder fundus, hook cautery was used to find the avascular plane between the liver and the gallbladder. As the gallbladder was dissected from the hepatic fossa, hemostasis was checked using vessel sealer along the posterior gallbladder. Next, indocyanine green was used to confirm the common bile duct as well as cystic duct. The cystic duct was short and dissection was performed at the junction of the cystic duct and infundibulum. The entire gallbladder was without contrast consistent with acute cholecystitis. The infundibulum was retracted laterally to expose the cystic duct away from the common bile duct. The cystic duct was dissected free from its surrounding tissue. FIREFLY was used to identify the cystic structures. A critical view of safety was obtained. Large PLASTIC clips were used throughout the entire case. Using a clip assembler molded frames, a clip was placed at the junction of the infundibulum and cystic duct. The cystic duct was divided using vessel sealer. Next, the cystic artery was div ided using vessel sealer. Electro-Bovie cautery and vessel sealer was used to remove the gallbladder without decompression. Hemostasis was checked and found to be adequate. The robot was undocked. I re-scrubbed into the case. A 10 mm Endo Catch bag was used to remove the gallbladder in total via the left upper quadrant incision after widening the incision. The specimen was removed from the abdominal cavity. Paul Rodriguez and 0 Vicryl was used to close the fascial defect of the left upper quadrant. All pneumoperitoneum instruments were evacuated from the abdominal cavity. The incisions were cleansed using dilute hydrogen peroxide. The incisions were reapproximated using 4-0 Monocryl in an interrupted subcuticular fashion. Please note along the trocar sites, local anesthetic was placed as a field block prior to insertion of all instruments. Liquid glue was applied to the skin. At the end of the procedure needle, sponge, and instrument count had been verified correct by the regional vice president surgical sales. The patient was transferred to postanesthesia care unit in stable condition. Intraoperative films were shared with the patient's family who were pleased with the level of care.
[2020-07-05] MEDS ORDERED: HYDROmorphone 0.5 MG/0.5 ML SYRINGE IVP ONE (14:20)
[2020-07-05] MEDS: DILTIAZEM CD 120 MG CAP.ER.24H PO SCH (15:43)
[2020-07-05] MEDS: lisinopriL 10 MG TAB PO SCH ×2 (15:44→20:48)
--- NOTE | 2020-07-05 16:08 | P.PN ---
Subjective Progress Note Date: 07/05/20 Principal diagnosis: Cholecystitis, abdominal pain, right lung mass 80-year-old white male patient with multiple medical problems including COPD with baseline FEV1 of 45% of predicted, chronic A. fib with history of ablation, hypertension, hyperlipidemia, former smoker, chronic back pain, chronic neck pain, who came in on 06/30/2020 with complaints of weakness, one month history of abdominal pain in the right and left upper quadrant. Patient denies any blood in the stool, denies any nausea vomiting. Denied any fever or chills. Patient is also complaining of increased difficulty with breathing. Patient was in the emergency department 3 days prior and was discharged home with outpatient follow-up instruction however he was too weak to be able to do that. 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 CT angiogram of the chest completed in view of elevated d-dimer of 1.6 on 06/11 showed no evidence of pulmonary embolism, and ill-defined 24 mm spiculated opacity in the right lower lobe that could represent infectious process versus neoplasm. There was also enlarged right hilar lymph nodes. Lab data on 06/30/2020 showed a white blood cell count of 12, hemoglobin of 13.7, INR is 3.7, sodium is 135, the rest of the electrolytes were within normal limits, B1 is 21 and creatinine was 0.65. Troponin was less than 0.012, amylase and lipase were negative, LFTs were within normal limits, urinalysis showed 2+ ketones, trace blood, but no evidence of infection. Currently patient is undergoing surgical evaluation for bilateral upper quadrant abdominal pain, his abdomen remains tender, surgical services are following, his INR is still elevated at 3.7 his Coumadin is on hold for possibility of surgical intervention. He is getting MiraLAX and lactulose for constipation, he is on clear liquid diet, he's had no nausea. He denies any hemoptysis, he is not having any respiratory distress, he is on 2 L of oxygen and pulse ox 97%, he is afebrile. We are asked to see the patient in regards to the right lower lobe nodular density possibility of lung cancer. On 07/02/2020 patient seen in follow-up on medical floor, his abdominal pain although intermittent seems to have improved some. His abdomen is soft, mildly tender, no worsening dyspnea, although she does have some chronic congestion and he is able to bring up some yellowish colored phlegm. No fever overnight, is currently on room air, pulse ox is 93%, lung sounds reveal some scattered rhonchi, patient is receiving breathing treatments, he is on Zosyn for antibiotic coverage, he received a dose of IV Lasix yesterday, he is on Symbicort. His Coumadin remains on hold, she received 10 mg of vitamin K y , today's INR is 1.8, his white count is relatively stable at 11.9, hemoglobin is 13.7, sodium is 141, potassium is 4.4, chloride is 95, BUN is 14, creatinine 0.6, lactic acid is 1.2, patient is not tachycardic, blood pressure is stable, his last lipase was 69, amylase was 39, urinalysis did not show evidence of infection, nausea or vomiting, patient had one bowel movement last 24 hours. No diarrhea On 07/05/2020 patient seen in follow-up following his laparoscopic cholecystectomy. He had just returned to his room on the medical surgical floor half an hour ago, he still drowsy, but arousable is currently on 4 L of oxygen is pulse ox of 9800%, blood pressure is 150/78, heart rate is 72, temperature is 98.5. He is breathing comfortably, does not appear to be in any acute distress, pain is well controlled, his laparoscopic abdominal incisions are clean dry and intact, no MAUREEN drain present, he is on 0.9 at 75 ML per hour, and a Zosyn for empiric antibiotic coverage, no abdominal pain, no nausea or vomiting. Objective - Vital Signs Vital signs: Vital Signs Temp 98.5 F 07/05/20 15:15 Pulse 89 07/05/20 15:55 Resp 14 07/05/20 15:15 BP 150/78 07/05/20 15:40 Pulse Ox 98 07/05/20 15:40 Intake & Output 07/04/20 07/05/20 07/05/20 18:59 06:59 18:59 Intake Total 1560 500 550 Output Total 5 Balance 1560 500 545 Intake: IV 550 Intake, IV Titration 600 500 Amount Piperacillin-Tazobactam 3 200 200 .375 gm In Sodium Chloride 0.9% 100 ml @ 25 mls/hr IVPB Q8H DAWNA Rx#: [id number] Sodium Chloride 0.9% 1, 400 300 000 ml @ 75 mls/hr IV . [id number] DAWNA Rx#:[id number] Oral 960 0 Output: Estimated Blood Loss 5 Other: Voiding Method Urinal Urinal Urinal Diaper Diaper Diaper # Voids 8 1 - Exam GENERAL EXAM: Drowsy but arousable 80-year-old white male, on 4 L of oxygen and the pulse ox 98% comfortable in no apparent distress. HEAD: Normocephalic/atraumatic. EYES: Normal reaction of pupils, equal size. Conjunctiva pink, sclera white. NOSE: Clear with pink turbinates. THROAT: No erythema or exudates. NECK: No masses, no JVD, no thyroid enlargement, no adenopathy. CHEST: No chest wall deformity. Symmetrical expansion. LUNGS: Equal air entry with no crackles, wheeze, rhonchi or dullness. CVS: Irregular rate and rhythm, normal S1 and S2, no gallops, no murmurs, no rubs ABDOMEN: Soft, less distended, a bit tender, no hepatosplenomegaly, normal bowel sounds, no guarding or rigidity. Abdominal lip scopic incisions clean dry and intact, no MAUREEN drain present, abdomen is slightly distended but soft EXTREMITIES: No clubbing, no edema, no cyanosis, 2+ pulses and upper and lower extremities. MUSCULOSKELETAL: Muscle strength and tone normal. SPINE: No scoliosis or deformity SKIN: No rashes CENTRAL NERVOUS SYSTEM: Drowsy, but arousable No focal deficits, tone is normal in all 4 extremities. - Labs CBC & Chem 7: 07/05/20 05:19 07/05/20 05:19 Labs: Abnormal Lab Results - Last 24 Hours (Table) 07/05/20 07/05/20 Range/Units 05:19 05:19 WBC 11.9 H (3.8-10.6) k/uL Monocytes # 2.0 H (0-1.0) k/uL Anion Gap 12.30 H (4.00-12.00) mmol/L BUN 8.0 L (9.0-27.0) mg/dL BUN/Creatinine Ratio 10.00 L (12.00-20.00) Ratio AST 39 H (14-35) U/L Albumin/Globulin Ratio 1.41 L (1.60-3.17) g/dL Assessment and Plan Plan: Assessment: #1. Right lower lobe 24 mm spiculated opacity rule out possibility of lung cancer. CT angiogram was completed on 06/27/2020 in view of elevated d-dimer without evidence of pulmonary embolism and showed right lower lobe 24 mm opacity, and enlarged right hilar lymph nodes, and heterogeneous colorless opacities in the right lower lobe possibly infectious/inflammatory versus mild edema #2. Acute cholecystitis. Ultrasound of gallbladder showed moderately distended gallbladder, gallstone along the infundibulum of the gallbladder. CT of the abdomen showed moderate retained stool along the sigmoid colon, descending and transverse colon #3. Status post laparoscopic cholecystectomy for the above, on the 07/05/2020, postoperative day 0 #4. Moderate constipation #5. Diverticulosis of the sigmoid colon #6. Horseshoe kidney #7. Bladder kidney stones #8. Chronic atrial fibrillation with RVR, on Coumadin, which is currently on hold for possibility of surgery #9. COPD with FEV1 of 45% of predicted #10. Chronic back and neck pain #11. History of skin cancer #12. Hypertension #13. Hyperlipidemia #14. Former smoker Plan: Incentive spirometer to the bedside, encouraged deep breathing and coughing, maintain pain control, follow-up chest x-ray in the morning, follow-up blood work in the morning. Continue with nebulized bronchodilators, continue current antibiotics. We'll continue to follow I performed a history & physical examination of the patient and discussed their management with my nurse practitioner, Domonique Charles. I reviewed the nurse practitioner's note and agree with the documented findings and plan of care. Lung sounds are positive for diminished breath sounds. The findings and the impression was discussed with the patient. I attest to the documentation by the nurse practitioner. Time with Patient: Less than 30
[2020-07-05] MEDS: HEPARIN SODIUM,PORCINE 5,000 UNIT/ML 1 ML VIAL SQ SCH (20:47)
[2020-07-05] MEDS: ATORVASTATIN 10 MG TAB PO SCH (20:48)
[2020-07-06] MEDS: PIPERACILLIN-TAZOBACTAM 3.375 GM in SODIUM CHLORIDE 0.9% 100 ML IVPB SCH ×3 (04:32→20:50)
[2020-07-06] MEDS: HYDROmorphone 1 MG/ML 1 ML SYRINGE IVP PRN ×3 (04:38→20:47)
[2020-07-06 06:17] LABS: Basophils % (A) 0 %; Eosinophils # (A) 0.1 k/uL (0-0.7); Eosinophils % (A) 1 %; HCT 38.1 % (39.0-53.0); HGB 12.5 gm/dL (13.0-17.5); Lymphocytes # (A) 0.8 k/uL (1.0-4.8); Lymphocytes % (A) 6 %; MCH 29.9 pg (25.0-35.0); MCV 90.7 fL (80.0-100.0); Mean Platelet Volume 7.3; Monocytes # (A) 0.7 k/uL (0-1.0); Monocytes % (A) 6 %; Neutrophils # (A) 10.4 k/uL (1.3-7.7); Neutrophils % (A) 87 %; Platelet Count 296 k/uL (150-450); RDW 12.9 % (11.5-15.5)
[2020-07-06] MEDS: SODIUM CHLORIDE 0.9% 1,000 ML IV SCH ×2 (06:46→17:32)
[2020-07-06] MEDS: SYMBICORT 160-4.5 MCG INHALER INHALATION SCH ×2 (08:13→20:57)
[2020-07-06] MEDS: IPRATROPIUM-ALBUTEROL 3 ML NEB INHALATION SCH ×4 (08:13→20:57)
[2020-07-06] MEDS: lisinopriL 10 MG TAB PO SCH ×2 (09:37→20:47)
[2020-07-06] MEDS: HEPARIN SODIUM,PORCINE 5,000 UNIT/ML 1 ML VIAL SQ SCH ×2 (09:37→20:47)
[2020-07-06] MEDS: DILTIAZEM CD 120 MG CAP.ER.24H PO SCH (09:37)
[2020-07-06] MEDS: METOPROLOL TARTRATE 25 MG TAB PO SCH ×2 (09:37→20:46)
--- NOTE | 2020-07-06 10:01 | XR ---
EXAMINATION TYPE: XR chest 1V portable DATE OF EXAM: 07/06/2020 Comparison: 06/30/2020 Clinical History: 80 year-old male shortness of breath Findings: ACF hardware. Heart borderline in size. Diffuse interstitial opacities persist. Patchy left basilar o pacity unchanged. No sizable effusion. Impression: Borderline heart size and continued interstitial opacity. Correlate for bronchitis, atypical pneumoni a, or pulmonary vascular congestion. No significant interval change.
[2020-07-06 10:53] LABS: African American GFR (CKD) 103.3 (60.0-200.0); Calcium 8.7 mg/dL (8.7-10.3); Non-African American GFR(CKD) 89.1 (60.0-200.0)
--- NOTE | 2020-07-06 11:43 | P.PN ---
Subjective Progress Note Date: 07/06/20 HISTORY OF PRESENT ILLNESS: Patient is status post robotic cholecystectomy with Dr. Skelton. Postop day #1. Patient examined this morning at the bedside. Patient is lethargic at the time of examination. He denies chest pain or pressure. He denies shortness of breath. Blood pressure this morning 164/93. PHYSICAL EXAM: VITAL SIGNS: Reviewed. GENERAL: Well-developed in no acute distress. NECK: Supple. No JVD or thyromegaly LUNGS: Respirations even and unlabored. Lungs diminished bilaterally. HEART: Irregular rate and rhythm. S1 and S2 heard. EXTREMITIES: Normal range of motion. No clubbing or cyanosis. Peripheral pulses intact. No lower extremity edema ASSESSMENT: Acute cholecystitis, status post robotic cholecystectomy Leukocytosis Chronic persistent atrial fibrillation with RVR, heart rate currently controlled, on anticoagulation with Coumadin Supratherapeutic INR, resolved Hypertension Hyperlipidemia PLAN: Continue current cardiac medications Resume Coumadin. Monitor INR Nurse practitioner note has been reviewed by physician. Signing provider agrees with the documented findings, assessment, and plan of care. Objective - Vital Signs Vital signs: Vital Signs Temp 98 F 07/06/20 05:00 Pulse 110 H 07/06/20 05:00 Resp 18 07/06/20 05:00 BP 164/93 07/06/20 05:00 Pulse Ox 96 07/06/20 05:00 Intake & Output 07/05/20 07/06/20 07/06/20 18:59 06:59 18:59 Intake Total 610 Output Total 2004 300 Balance -1395 -300 Intake: IV 550 Oral 60 Output: Urine 2000 300 Estimated Blood Loss 5 Other: Voiding Method Urinal Diaper Diaper Indwelling Catheter - Labs CBC & Chem 7: 07/06/20 05:59 07/06/20 05:59 Labs: Abnormal Lab Results - Last 24 Hours (Table) 07/06/20 07/06/20 Range/Units 05:59 05:59 WBC 12.0 H (3.8-10.6) k/uL RBC 4.20 L (4.30-5.90) m/uL Hgb 12.5 L (13.0-17.5) gm/dL Hct 38.1 L (39.0-53.0) % Neutrophils # 10.4 H (1.3-7.7) k/uL Lymphocytes # 0.8 L (1.0-4.8) k/uL Chloride 89 L (96-109) mmol/L Anion Gap 21.00 H (4.00-12.00) mmol/L Glucose 124 H (70-110) mg/dL
[2020-07-06] MEDS ORDERED: FUROSEMIDE 10 MG/ML 4 ML VIAL IV STA (12:59)
--- NOTE | 2020-07-06 13:17 | P.PN ---
Subjective Progress Note Date: 07/06/20 Principal diagnosis: Cholecystitis, abdominal pain, right lung mass 80-year-old white male patient with multiple medical problems including COPD with baseline FEV1 of 45% of predicted, chronic A. fib with history of ablation, hypertension, hyperlipidemia, former smoker, chronic back pain, chronic neck pain, who came in on 06/30/2020 with complaints of weakness, one month history of abdominal pain in the right and left upper quadrant. Patient denies any blood in the stool, denies any nausea vomiting. Denied any fever or chills. Patient is also complaining of increased difficulty with breathing. Patient was in the emergency department 3 days prior and was discharged home with outpatient follow-up instruction however he was too weak to be able to do that. 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 CT angiogram of the chest completed in view of elevated d-dimer of 1.6 on 06/11 showed no evidence of pulmonary embolism, and ill-defined 24 mm spiculated opacity in the right lower lobe that could represent infectious process versus neoplasm. There was also enlarged right hilar lymph nodes. Lab data on 06/30/2020 showed a white blood cell count of 12, hemoglobin of 13.7, INR is 3.7, sodium is 135, the rest of the electrolytes were within normal limits, B1 is 21 and creatinine was 0.65. Troponin was less than 0.012, amylase and lipase were negative, LFTs were within normal limits, urinalysis showed 2+ ketones, trace blood, but no evidence of infection. Currently patient is undergoing surgical evaluation for bilateral upper quadrant abdominal pain, his abdomen remains tender, surgical services are following, his INR is still elevated at 3.7 his Coumadin is on hold for possibility of surgical intervention. He is getting MiraLAX and lactulose for constipation, he is on clear liquid diet, he's had no nausea. He denies any hemoptysis, he is not having any respiratory distress, he is on 2 L of oxygen and pulse ox 97%, he is afebrile. We are asked to see the patient in regards to the right lower lobe nodular density possibility of lung cancer. On 07/02/2020 patient seen in follow-up on medical floor, his abdominal pain although intermittent seems to have improved some. His abdomen is soft, mildly tender, no worsening dyspnea, although she does have some chronic congestion and he is able to bring up some yellowish colored phlegm. No fever overnight, is currently on room air, pulse ox is 93%, lung sounds reveal some scattered rhonchi, patient is receiving breathing treatments, he is on Zosyn for antibiotic coverage, he received a dose of IV Lasix yesterday, he is on Symbicort. His Coumadin remains on hold, she received 10 mg of vitamin K y , today's INR is 1.8, his white count is relatively stable at 11.9, hemoglobin is 13.7, sodium is 141, potassium is 4.4, chloride is 95, BUN is 14, creatinine 0.6, lactic acid is 1.2, patient is not tachycardic, blood pressure is stable, his last lipase was 69, amylase was 39, urinalysis did not show evidence of infection, nausea or vomiting, patient had one bowel movement last 24 hours. No diarrhea On 07/05/2020 patient seen in follow-up following his laparoscopic cholecystectomy. He had just returned to his room on the medical surgical floor half an hour ago, he still drowsy, but arousable is currently on 4 L of oxygen is pulse ox of 9800%, blood pressure is 150/78, heart rate is 72, temperature is 98.5. He is breathing comfortably, does not appear to be in any acute distress, pain is well controlled, his laparoscopic abdominal incisions are clean dry and intact, no MAUREEN drain present, he is on 0.9 at 75 ML per hour, and a Zosyn for empiric antibiotic coverage, no abdominal pain, no nausea or vomiting. On 07/06/2020 patient seen in follow-up on medical floor, today is postop day 1 status post laparoscopic cholecystectomy, patient is well, awake and alert, oriented 3, denies any distress, in no signs of any respiratory difficulty, sounds are clear, no rhonchi or wheezing, today's chest x-ray has been reviewed showing some interstitial prominence possibly related to mild fluid overload, although clinically patient is breathing comfortably. He is currently on 3 L of oxygen pulse ox is 96%, his been afebrile, he is tolerating oral intake, abdomen is soft, nontender, his laparoscopic incisions are clean dry and intact. Cardiology restarted the patient's Coumadin today, INR is 1. he continues on Zosyn for empiric coverage in addition to Kefzol. No acute events overnight Objective - Vital Signs Vital signs: Vital Signs Temp 98 F 07/06/20 05:00 Pulse 110 H 07/06/20 05:00 Resp 18 07/06/20 05:00 BP 164/93 07/06/20 05:00 Pulse Ox 96 07/06/20 05:00 Intake & Output 07/05/20 07/06/20 07/06/20 18:59 06:59 18:59 Intake Total 610 Output Total 2004 300 Balance -1395 -300 Intake: IV 550 Oral 60 Output: Urine 1999 300 Estimated Blood Loss 5 Other: Voiding Method Urinal Diaper Diaper Indwelling Catheter - Exam GENERAL EXAM: Drowsy but arousable 80-year-old white male, on 3 L of oxygen and the pulse ox 98% comfortable in no apparent distress. HEAD: Normocephalic/atraumatic. EYES: Normal reaction of pupils, equal size. Conjunctiva pink, sclera white. NOSE: Clear with pink turbinates. THROAT: No erythema or exudates. NECK: No masses, no JVD, no thyroid enlargement, no adenopathy. CHEST: No chest wall deformity. Symmetrical expansion. LUNGS: Equal air entry with no crackles, wheeze, rhonchi or dullness. CVS: Irregular rate and rhythm, normal S1 and S2, no gallops, no murmurs, no rubs ABDOMEN: Soft, less distended, a bit tender, no hepatosplenomegaly, normal bowel sounds, no guarding or rigidity. Abdominal lip scopic incisions clean dry and intact, no MAUREEN drain present, abdomen is slightly distended but soft EXTREMITIES: No clubbing, no edema, no cyanosis, 2+ pulses and upper and lower extremities. MUSCULOSKELETAL: Muscle strength and tone normal. SPINE: No scoliosis or deformity SKIN: No rashes CENTRAL NERVOUS SYSTEM: Drowsy, but arousable No focal deficits, tone is normal in all 4 extremities. - Labs CBC & Chem 7: 07/06/20 05:59 07/06/20 05:59 Labs: Abnormal Lab Results - Last 24 Hours (Table) 07/06/20 07/06/20 Range/Units 05:59 05:59 WBC 12.0 H (3.8-10.6) k/uL RBC 4.20 L (4.30-5.90) m/uL Hgb 12.5 L (13.0-17.5) gm/dL Hct 38.1 L (39.0-53.0) % Neutrophils # 10.4 H (1.3-7.7) k/uL Lymphocytes # 0.8 L (1.0-4.8) k/uL Chloride 89 L (96-109) mmol/L Anion Gap 21.00 H (4.00-12.00) mmol/L Glucose 124 H (70-110) mg/dL Assessment and Plan Plan: Assessment: #1. Right lower lobe 24 mm spiculated opacity rule out possibility of lung cancer. CT angiogram was completed on 06/27/2020 in view of elevated d-dimer without evidence of pulmonary embolism and showed right lower lobe 24 mm opacity, and enlarged right hilar lymph nodes, and heterogeneous colorless opacities in the right lower lobe possibly infectious/inflammatory versus mild edema #2. Acute cholecystitis. Ultrasound of gallbladder showed moderately distended gallbladder, gallstone along the infundibulum of the gallbladder. CT of the abdomen showed moderate retained stool along the sigmoid colon, descending and transverse colon #3. Status post laparoscopic cholecystectomy for the above, on the 07/05/2020, postoperative day 1 #4. Moderate constipation #5. Diverticulosis of the sigmoid colon #6. Horseshoe kidney #7. Bladder kidney stones #8. Chronic atrial fibrillation with RVR, on Coumadin, which is currently on hold for possibility of surgery #9. COPD with FEV1 of 45% of predicted #10. Chronic back and neck pain #11. History of skin cancer #12. Hypertension #13. Hyperlipidemia #14. Former smoker Plan: Encourage deep breathing and coughing, today's chest x-ray has been reviewed showing mild interstitial prominence, dropped to IV fluids down to KVO, give the patient 1 dose of IV Lasix, clinically patient is stable, no respiratory difficulty, wean FiO2. He considered for discharge home when cleared by surgery and medicine. He will need outpatient follow-up in the office in regards to the right lower lobe pulmonary nodule. I performed a history & physical examination of the patient and discussed their management with my nurse practitioner, Domonique Charles. I reviewed the nurse practitioner's note and agree with the documented findings and plan of care. Lung sounds are positive for diminished breath sounds. The findings and the impression was discussed with the patient. I attest to the documentation by the nurse practitioner. Time with Patient: Less than 30
--- NOTE | 2020-07-06 15:14 | P.PN ---
Subjective Progress Note Date: 07/06/20 CHIEF COMPLAINT: Abdominal pain HISTORY OF PRESENT ILLNESS: Patient is status post Robotic-assisted da Tomas Xi laparoscopic cholecystectomy for acute cholecystitis. Patient has tolerated surgery well. He is tolerating diet. Afebrile WBC 12.0 PHYSICAL EXAM: VITAL SIGNS: Reviewed GENERAL: Well-developed in no acute distress. HEENT: No sclera icterus. Extraocular movements grossly intact. Moist buccal mucosa. Head is atraumatic, normocephalic. Hears conversational speech. No nasal drainage. NECK: Supple without lymphadenopathy. CHEST: Non-labored respirations and equal bilateral excursions. CARDIOVASCULAR: Palpable 2+ radial pulses. ABDOMEN: Soft. Nondistended. Incision sites clean dry and intact MUSCULOSKELETAL: No clubbing or cyanosis. NEUROLOGIC: Pleasantly confused PSYCH: Appropriate affect. Alert and oriented to person, place and time. SKIN: Well perfused. Good skin turgor. ASSESSMENT: 1. Acute cholecystitis status post Robotic-assisted da Tomas Xi laparoscopic c holecystectomy 2. Symptomatic gallstones 3. Hydrops cholecystitis PLAN: -Patient can be discharged from surgical standpoint -Recommend that patient does not start Coumadin or any oral anticoagulation until , 07/08/2020 Physician Software Test Developer note has been reviewed by physician. Signing provider agrees with the documented findings, assessment, and plan of care. Objective - Vital Signs Vital signs: Vital Signs Temp 98.5 F 07/06/20 13:40 Pulse 85 07/06/20 12:30 Resp 16 07/06/20 12:30 BP 107/62 07/06/20 12:30 Pulse Ox 98 07/06/20 12:30 Intake & Output 07/05/20 07/06/20 07/06/20 18:59 06:59 18:59 Intake Total 610 480 Output Total 2004 300 300 Balance -1395 -300 180 Intake: IV 550 Oral 60 480 Output: Urine 2000 300 300 Estimated Blood Loss 5 Other: Voiding Method Urinal Diaper Diaper Diaper Indwelling Catheter Indwelling Catheter # Voids 1 - Labs CBC & Chem 7: 07/06/20 05:59 07/06/20 05:59 Labs: Abnormal Lab Results - Last 24 Hours (Table) 07/06/20 07/06/20 Range/Units 05:59 05:59 WBC 12.0 H (3.8-10.6) k/uL RBC 4.20 L (4.30-5.90) m/uL Hgb 12.5 L (13.0-17.5) gm/dL Hct 38.1 L (39.0-53.0) % Neutrophils # 10.4 H (1.3-7.7) k/uL Lymphocytes # 0.8 L (1.0-4.8) k/uL Chloride 89 L (96-109) mmol/L Anion Gap 21.00 H (4.00-12.00) mmol/L Glucose 124 H (70-110) mg/dL
[2020-07-06] MEDS ORDERED: WARFARIN 5 MG TAB PO ONE (18:00)
[2020-07-06] MEDS: ATORVASTATIN 10 MG TAB PO SCH (20:46)
--- NOTE | 2020-07-06 22:25 | P.PN ---
Progress Note - Text Progress Note Date: 07/06/20 Chief Complaint: Abdominal pain History of presenting complaint: This is a pleasant 80-year-old patient of Dr. Lozoya. 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 Patient lives with his mentally challenged son. Daughter lives next door. Patient for over 2 weeks been having abdominal distention. Normally has a bowel movement every day. Has not had a bowel movement for at least a week. Denies any nausea vomiting. No fever. No pain. Does use a walker. distended in the belly. Admitted with-severe obstipation. Also atrial fibrillation rapid ventricular rate. Received vitamin K for Coumadin reversal. Acute cholecystitis. With gallstones. On IV Zosyn. July 05-cholecystectomy Today-doing well this morning. Eating his lunch. Pain control. No nausea vomiting. Though feels weak. PTOT consulted. Review of systems: Was done for constitutional, cardiovascular, GI, pulmonary. relevant finding as above Active Medications Acetaminophen (Acetaminophen Tab 325 Mg Tab) 650 mg PO Q6HR PRN PRN Reason: Mild Pain or Fever >= 100.5 Hydrocodone Bitart/Acetaminophen (Hydrocodone/Apap 7.5-325mg 1 Each Tab) 1 each PO Q6H PRN PRN Reason: Pain Last Admin: 07/04/20 19:56 Dose: 1 each Documented by: Albuterol/Ipratropium (Ipratropium-Albuterol 3 Ml Neb) 3 ml INHALATION RT-QID [facility] Last Admin: 07/06/20 20:57 Dose: Not Given Documented by: Atorvastatin Calcium (Atorvastatin 10 Mg Tab) 10 mg PO HS [facility] Last Admin: 07/06/20 20:46 Dose: 10 mg Documented by: Budesonide/Formoterol Fumarate (Symbicort 160-4.5 Mcg Inhaler) 2 puff INHALATION RT-BID [facility] Last Admin: 07/06/20 20:57 Dose: Not Given Documented by: Diltiazem HCl (Diltiazem Cd 120 Mg Cap.Er.24h) 120 mg PO DAILY [facility] Last Admin: 07/06/20 09:37 Dose: 120 mg Documented by: Haloperidol Lactate (Haloperidol Lactate 5 Mg/Ml 1 Ml Vial) 5 mg IM ONCE PRN PRN Reason: Agitation or Acute Psychosis Last Admin: 07/04/20 04:00 Dose: 5 mg Documented by: Heparin Sodium (Porcine) (Heparin Sodium,Porcine 5,000 Unit/Ml 1 Ml Vial) 5,000 unit SQ Q12HR [facility] Last Admin: 07/06/20 20:47 Dose: 5,000 unit Documented by: Hydromorphone HCl (Hydromorphone 1 Mg/Ml 1 Ml Syringe) 1 mg IVP Q3HR PRN PRN Reason: Pain Last Admin: 07/06/20 20:47 Dose: 1 mg Documented by: Piperacillin Sod/Tazobactam (Sod 3.375 gm/ Sodium Chloride) 100 mls @ 25 mls/hr IVPB Q8H [facility] Last Admin: 07/06/20 20:50 Dose: 25 mls/hr Documented by: Sodium Chloride (Saline 0.9%) 1,000 mls @ 25 mls/hr IV .Q24H [facility] Last Admin: 07/06/20 17:32 Dose: Not Given Documented by: Cefazolin Sodium 2 gm/ Sodium (Chloride) 50 mls @ 100 mls/hr IVPB ONCE PRN PRN Reason: Pre-Op Stop: 07/06/20 23:00 Lisinopril (Lisinopril 10 Mg Tab) 10 mg PO BID [facility] Last Admin: 07/06/20 20:47 Dose: 10 mg Documented by: Metoprolol Tartrate (Metoprolol Tartrate 25 Mg Tab) 25 mg PO BID [facility] Last Admin: 07/06/20 20:46 Dose: 25 mg Documented by: Naloxone HCl (Naloxone 0.4 Mg/Ml 1 Ml Vial) 0.2 mg IV Q2M PRN PRN Reason: Opioid Reversal Past medical history to include: Atrial fibrillation, COPD, hypertension, skin cancer involving the left cheek, resected, chronic back pain, chronic back pain with radiculopathy number stent involving the right upper extremity in the hands, varicose veins, hypertension, hyperlipidemia, 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 Son is highly functional . Has home oxygen but does not use it. Daughter lives next dose. Does not smoke. No alcohol. Physical examination: VITAL SIGNS: 97.8, 95, 17, 124/83, GENERAL: BMI 26.4, sitting up, eating EYES: Pupils equal. Conjunctiva normal. HEENT: External appearance of nose and ears normal, oral cavity grossly normal. NECK: JVD not raised; masses not palpable. HEART: First and second heart sounds are normal; no edema. LUNGS: Respiratory rate normal; clear to auscultation. ABDOMEN: Soft, some tenderness, no guarding rigidity some tenderness upper abdomen liver spleen not palpable, no masses palpable. PSYCH: Alert and oriented x3; mood and affect normal. INVESTIGATIONS, reviewed in the clinical context: July 06: White count 1 hemoglobin 12.5 potassium 4 creatinine 0.7 July 04: White count 9.3 hemoglobin 14.4 INR 1.1 progression 3.6 creatinine 0.7 July 02: White count 11.9 hemoglobin 13.7 INR 1.8 potassium 4.4 creatinine 0.6 July 01: INR 3.29 Abdominal ultrasound: Gallstones White count 12 hemoglobin 13.7 platelets 273 INR 3.7 potassium 4.1 bun 21 creatine 0.65 EKG tracing personally reviewed by me-atrial flutter fibrillation with a heart rate of 120 Chest x-ray film personally reviewed by me-some Scattered infiltrates possibly chronic Abdominal x-ray film personally reviewed by me shows-scattered stool Element of ileus Previous testing: CT scan of the abdomen pelvis [06/27/2020] horseshoe kidney, colonic diverticulosis, T9, T12 fracture-age indeterminate CT of the chest [06/27/2020] 24 mm. Spiculated opacity right lower lobe. Some groundglass opacities. Some vertebral thoracic compression Assessment: -Bowel obstruction versus ileus with obstipation-responded to laxative -Persistent atrial flutter fibrillation rate uncontrolled A. fib now better controlled -COPD -Essential hypertension -Hyperlipidemia -Obstipation. Given laxative-responded well -Gallstones, with cholecystitis, status post cholecystectomy in July 05 -Horseshoe kidney -Chronic diverticulosis, asymptomatic -Multiple level thoracic vertebra compression fracture -24 mm pink clear to bases right lower lobe-to been followed by Dr. Cifuentes - Plan: Continue with IV Zosyn. Diet has been advanced by surgery. PTOT consulted. Will see patient qualifies for rehab or has to go home but some help.
[2020-07-07] MEDS: PIPERACILLIN-TAZOBACTAM 3.375 GM in SODIUM CHLORIDE 0.9% 100 ML IVPB SCH ×2 (04:35→14:06)
[2020-07-07 06:33] VITALS: RESP 16
[2020-07-07] MEDS: IPRATROPIUM-ALBUTEROL 3 ML NEB INHALATION SCH ×3 (08:07→15:29)
[2020-07-07] MEDS: SYMBICORT 160-4.5 MCG INHALER INHALATION SCH (08:07)
[2020-07-07] MEDS: METOPROLOL TARTRATE 25 MG TAB PO SCH (10:16)
[2020-07-07] MEDS: lisinopriL 10 MG TAB PO SCH (10:17)
[2020-07-07] MEDS: DILTIAZEM CD 120 MG CAP.ER.24H PO SCH (10:18)
[2020-07-07] MEDS: HEPARIN SODIUM,PORCINE 5,000 UNIT/ML 1 ML VIAL SQ SCH (10:19)
[2020-07-07 10:48] LABS: INR 1.04 (0.90-1.11); Prothrombin Time 11.2 sec (9.9-11.9)
--- NOTE | 2020-07-07 10:56 | P.PN ---
Subjective Progress Note Date: 07/07/20 HISTORY OF PRESENT ILLNESS: Patient is status post robotic cholecystectomy with Dr. Skelton. Postop day #2. Patient examined this morning at the bedside. Patient is more awake this morning compared to yesterday. He denies chest pain or pressure. He denies shortness of breath. Blood pressure 150/74. Heart rate in the 90s. Patient has been resumed on his Coumadin as of yesterday. INR 1.03. PHYSICAL EXAM: VITAL SIGNS: Reviewed. GENERAL: Well-developed in no acute distress. NECK: Supple. No JVD or thyromegaly LUNGS: Respirations even and unlabored. Lungs diminished bilaterally. HEART: Irregular rate and rhythm. S1 and S2 heard. EXTREMITIES: Normal range of motion. No clubbing or cyanosis. Peripheral pulses intact. No lower extremity edema ASSESSMENT: Acute cholecystitis, status post robotic cholecystectomy Leukocytosis Chronic persistent atrial fibrillation with RVR, heart rate currently controlled, on anticoagulation with Coumadin Supratherapeutic INR, resolved Hypertension Hyperlipidemia PLAN: Continue current cardiac medications Resume Coumadin. Monitor INR Patient is stable for discharge from a cardiac perspective. He is to follow up outpatient with Dr. Hernandez Nurse practitioner note has been reviewed by physician. Signing provider agrees with the documented findings, assessment, and plan of care. Objective - Vital Signs Vital signs: Vital Signs Temp 97.9 F 07/07/20 10:14 Pulse 91 07/07/20 10:14 Resp 16 07/07/20 09:32 BP 150/74 07/07/20 10:14 Pulse Ox 98 07/07/20 08:08 Intake & Output 07/06/20 07/07/20 07/07/20 18:59 06:59 18:59 Intake Total 480 200 Output Total 550 875 Balance -70 -675 Intake: Intake, IV Titration 200 Amount Piperacillin-Tazobactam 3 100 .375 gm In Sodium Chloride 0.9% 100 ml @ 25 mls/hr IVPB Q8H [facility] Rx#: [id number] Sodium Chloride 0.9% 1, 100 000 ml @ 25 mls/hr IV . Q24H [facility] Rx#:[id number] Oral 480 Output: Urine 550 875 Other: Voiding Method Diaper Diaper Bedside Commode Indwelling Catheter Indwelling Catheter Indwelling Catheter # Voids 1 0 - Labs CBC & Chem 7: 07/06/20 05:59 07/06/20 05:59 Labs: Abnormal Lab Results - Last 24 Hours (Table) 07/06/20 Range/Units 05:59 Chloride 89 L (96-109) mmol/L Anion Gap 21.00 H (4.00-12.00) mmol/L Glucose 124 H (70-110) mg/dL
[2020-07-07 12:31] VITALS: BP 113/71; PULSE 80; TEMP 98.2
--- NOTE | 2020-07-07 12:43 | P.PN ---
Subjective Progress Note Date: 07/07/20 CHIEF COMPLAINT: Cholecystitis HISTORY OF PRESENT ILLNESS: The patient is a 80-year-old male status post robotic cholecystectomy 07/05/20. He denies new complaints. His Coumadin was restarted by medicine despite recommendations to delay anticoagulation due to high risk of bleeding. His right upper quadrant abdominal pain has resolved. Whitlock his present. He is tolerating diet. REVIEW OF ORGAN SYSTEMS: No fevers or chills. No shortness of breath. No new chest pain. PHYSICAL EXAM: VITALS: Reviewed CONSTITUTIONAL: Well developed and in no acute distress. EYES: Conjuctivae without sclera icterus. Extraocular movements grossly intact. HEAD, EARS, NOSE, THROAT: Moist buccal mucosa. Head is atraumatic, normocephalic. Hears conversational speech. No nasal drainage. RESPIRATORY: Non-labored respirations and equal bilateral excursions. No gross wheezes. CARDIOVASCULAR: Irregular rate and irregular rhythm ABDOMEN: Soft. Incision is intact without cellulitis or infection. No peritonitis. MUSCULOSKELETAL: Nail and fingers with good capillary refill. SKIN: Warm and well perfused with good skin turgor. NEUROLOGIC: Cranial nerves II through XII grossly intact. Sensation upper and extremities intact. No focal or lateralizing signs. PSYCH: Alert and oriented to person. CLINCAL LABS: Reviewed. no new labs. Last hemoglobin over 12.0. ASSESSMENT: 1. Bilateral upper abdominal pain present on admission 2. Chronic atrial fibrillation with rapid ventricular response 3. Bladder kidney stones 4. History of skin cancer 5. Diverticulosis of the sigmoid colon 6. Horseshoe kidney once kidney cyst 7. Leukocytosis present on admission 8. Cholelithiasis with cholecystitis 9. Chronic anticoagulation 10. 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 Recommend discontinue whitlock. 2. Ideally, re-start coumadin tomorrow. Objective - Vital Signs Vital signs: Vital Signs Temp 98.2 F 07/07/20 12:30 Pulse 80 07/07/20 12:30 Resp 16 07/07/20 12:30 BP 113/71 07/07/20 12:30 Pulse Ox 95 07/07/20 12:30 Intake & Output 07/06/20 07/07/20 07/07/20 18:59 06:59 18:59 Intake Total 480 200 Output Total 550 875 Balance -70 -675 Intake: Intake, IV Titration 200 Amount Piperacillin-Tazobactam 3 100 .375 gm In Sodium Chloride 0.9% 100 ml @ 25 mls/hr IVPB Q8H [facility] Rx#: [id number] Sodium Chloride 0.9% 1, 100 000 ml @ 25 mls/hr IV . Q24H [facility] Rx#:[id number] Oral 480 Output: Urine 550 875 Other: Voiding Method Diaper Diaper Bedside Commode Indwelling Catheter Indwelling Catheter Indwelling Catheter # Voids 1 0 - Labs CBC & Chem 7: 07/06/20 05:59 07/06/20 05:59 Assessment and Plan (1) Gallstones Status: Acute Code(s): K80.20 - CALCULUS OF GALLBLADDER W/O CHOLECYSTITIS W/O OBSTRUCTION SNOMED Code(s): 168437493 (2) Upper abdominal pain Status: Acute Code(s): R10.10 - UPPER ABDOMINAL PAIN, UNSPECIFIED SNOMED Code(s): 31250755 (3) Bladder calculi Status: Acute Code(s): N21.0 - CALCULUS IN BLADDER SNOMED Code(s): 93914788 (4) Diverticulosis Status: Acute Code(s): K57.90 - DVRTCLOS OF INTEST, PART UNSP, W/O PERF OR ABSCESS W/O BLEED SNOMED Code(s): 105681953 (5) Hypertensive heart disease Status: Acute Code(s): I11.9 - HYPERTENSIVE HEART DISEASE WITHOUT HEART FAILURE SNOMED Code(s): 09278917 (6) Anticoagulant long-term use Status: Acute Code(s): Z79.01 - [employer]ATOR (CURRENT) USE OF ANTICOAGULANTS SNOMED Code(s): 764288460 (7) Anticoagulant overdosage Status: Acute Code(s): T45.511A - POISONING BY ANTICOAGULANTS, ACCIDENTAL, INIT SNOMED Code(s): 16241563 (8) Atrial fibrillation with RVR Status: Acute Code(s): I48.91 - UNSPECIFIED ATRIAL FIBRILLATION SNOMED Code(s): 934785325347590 (9) Dehydration Status: Acute Code(s): E86.0 - DEHYDRATION SNOMED Code(s): 01788306 (10) Weakness Status: Acute Code(s): R53.1 - WEAKNESS SNOMED Code(s): 82077680 (11) Calculus of kidney Status: Acute Code(s): N20.0 - CALCULUS OF KIDNEY SNOMED Code(s): 59113678
--- NOTE | 2020-07-07 13:29 | P.DS ---
Providers Date of admission: 07/02/20 13:53 Expected date of discharge: 07/07/20 Attending physician: Dwayne Solomon Consults: 06/30/20 16:45 Consult Physician Urgent Consulting Provider: Olivia Skelton Consult Reason/Comments: Abdominal pain Do you want consulting provider notified?: Yes 06/30/20 16:58 Consult Physician Urgent Consulting Provider: Rex Cifuentes Consult Reason/Comments: Lung nodule/mass Do you want consulting provider notified?: Yes 06/30/20 22:11 Consult Physician Routine Consulting Provider: Joey Casiano Consult Reason/Comments: Atrial flutter fibrillation Do you want consulting provider notified?: Yes Primary care physician: [facility] Course: Chief Complaint: Abdominal pain History of presenting complaint: This is a pleasant 80-year-old patient of Dr. Lozoya. 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 Patient lives with his mentally challenged son. Daughter lives next door. Patient for over 2 weeks been having abdominal distention. Normally has a bowel movement every day. Has not had a bowel movement for at least a week. Denies any nausea vomiting. No fever. No pain. Does use a walker. distended in the belly. Admitted with-severe obstipation. Also atrial fibrillation rapid ventricular rate. Received vitamin K for Coumadin reversal. Acute cholecystitis. With gallstones. On IV Zosyn. July 05-cholecystectomy Today-tolerating diet. No pain. He'll be going to inpatient rehab. Heart rate controlled. Coumadin resumed. Consultation: Dr. Jang follow-up with general surgery Cardiology associates Dr. 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 Son is highly functional . Has home oxygen but does not use it. Daughter lives next dose. Does not smoke. No alcohol. Physical examination: VITAL SIGNS: 98.2, 80, 16, 113/71, 95% on 3 L GENERAL: BMI 26.4, sitting up, eating EYES: Pupils equal. Conjunctiva normal. HEENT: External appearance of nose and ears normal, oral cavity grossly normal. NECK: JVD not raised; masses not palpable. HEART: First and second heart sounds are normal; no edema. LUNGS: Respiratory rate normal; clear to auscultation. ABDOMEN: Soft, some tenderness, no guarding rigidity some tenderness upper abdomen liver spleen not palpable, no masses palpable. PSYCH: Alert and oriented x3; mood and affect normal. INVESTIGATIONS, reviewed in the clinical context: Coronavirus [PCR]-not detected July 06: White count 1 hemoglobin 12.5 potassium 4 creatinine 0.7 July 04: White count 9.3 hemoglobin 14.4 INR 1.1 progression 3.6 creatinine 0.7 July 02: White count 11.9 hemoglobin 13.7 INR 1.8 potassium 4.4 creatinine 0.6 July 01: INR 3.29 Abdominal ultrasound: Gallstones White count 12 hemoglobin 13.7 platelets 273 INR 3.7 potassium 4.1 bun 21 creatine 0.65 EKG tracing personally reviewed by me-atrial flutter fibrillation with a heart rate of 120 Chest x-ray film personally reviewed by me-some Scattered infiltrates possibly chronic Abdominal x-ray film personally reviewed by me shows-scattered stool Element of ileus Previous testing: CT scan of the abdomen pelvis [06/27/2020] horseshoe kidney, colonic diverticulosis, T9, T12 fracture-age indeterminate CT of the chest [06/27/2020] 24 mm. Spiculated opacity right lower lobe. Some groundglass opacities. Some vertebral thoracic compression Assessment: -Bowel obstruction versus ileus with obstipation-responded to laxative -Persistent atrial flutter fibrillation rate uncontrolled A. fib now better controlled -COPD -Essential hypertension -Hyperlipidemia -Obstipation. Given laxative-responded well -Gallstones, with acute cholecystitis, status post cholecystectomy in July 05 -Horseshoe kidney -Chronic diverticulosis, asymptomatic -Multiple level thoracic vertebra compression fracture -24 mm spiculated opacity, right bases right lower lobe-to been followed by Dr. Cifuentes - Disposition: [facility] Patient Condition at Discharge: Stable Plan - Discharge Summary Discharge Rx Participant: Yes New Discharge Prescriptions: New Amoxicillin/Potassium Clav [Augmentin 875-125 Tablet] 1 tab PO BID #14 tab Metoprolol Tartrate [Lopressor] 25 mg PO BID #60 tab Ipratropium-Albuterol Nebulize [Duoneb 0.5 mg-3 mg/3 ml Soln] 3 ml INHALATION TID ml Acetaminophen Tab [Tylenol] 650 mg PO Q6HR PRN tab PRN Reason: Mild Pain Or Fever >= 100.5 Continue lisinopriL [Zestril] 10 mg PO BID Fluticasone/Vilanterol [Breo Ellipta 200-25 Mcg INH] 1 puff INHALATION RT- DAILY Diltiazem HCl [Diltiazem HCl 24Hr ER (CD)] 120 mg PO DAILY [facility] 1 tab PO BID Simvastatin [Zocor] 20 mg PO HS Warfarin Sodium 5 mg PO HS Discharge Medication List Diltiazem HCl [Diltiazem HCl 24Hr ER (CD)] 120 mg PO DAILY 04/04/18 [History] Fluticasone/Vilanterol [Breo Ellipta 200-25 Mcg INH] 1 puff INHALATION RT-DAILY 04/04/18 [History] lisinopriL [Zestril] 10 mg PO BID 04/04/18 [History] [facility] 1 tab PO BID 12/29/19 [History] Simvastatin [Zocor] 20 mg PO HS 12/29/19 [History] Warfarin Sodium 5 mg PO HS 12/29/19 [History] Amoxicillin/Potassium Clav [Augmentin 875-125 Tablet] 1 tab PO BID #14 tab 07/02/20 [Rx] Metoprolol Tartrate [Lopressor] 25 mg PO BID #60 tab 07/02/20 [Rx] Acetaminophen Tab [Tylenol] 650 mg PO Q6HR PRN tab 07/07/20 [Rx] Ipratropium-Albuterol Nebulize [Duoneb 0.5 mg-3 mg/3 ml Soln] 3 ml INHALATION TID ml 07/07/20 [Rx] Follow up Appointment(s)/Referral(s): Bjorn Hodges MD [STAFF PHYSICIAN] - 3 Weeks Enrique Lozoya MD [Primary Care Provider] - 1-2 days Olivia Skelton MD [STAFF PHYSICIAN] - 07/06/20 Tushar Hernandez MD [STAFF PHYSICIAN] - 2 Weeks Rex Cifuentes MD [STAFF PHYSICIAN] - 2 Weeks Activity/Diet/Wound Care/Special Instructions: soft bland diet cbc/cmp/inr - next sunday
--- NOTE | 2020-07-07 14:41 | P.PN ---
Subjective Progress Note Date: 07/07/20 Principal diagnosis: Cholecystitis, abdominal pain, right lung mass 80-year-old white male patient with multiple medical problems including COPD with baseline FEV1 of 45% of predicted, chronic A. fib with history of ablation, hypertension, hyperlipidemia, former smoker, chronic back pain, chronic neck pain, who came in on 06/30/2020 with complaints of weakness, one month history of abdominal pain in the right and left upper quadrant. Patient denies any blood in the stool, denies any nausea vomiting. Denied any fever or chills. Patient is also complaining of increased difficulty with breathing. Patient was in the emergency department 3 days prior and was discharged home with outpatient follow-up instruction however he was too weak to be able to do that. 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 CT angiogram of the chest completed in view of elevated d-dimer of 1.6 on 06/11 showed no evidence of pulmonary embolism, and ill-defined 24 mm spiculated opacity in the right lower lobe that could represent infectious process versus neoplasm. There was also enlarged right hilar lymph nodes. Lab data on 06/30/2020 showed a white blood cell count of 12, hemoglobin of 13.7, INR is 3.7, sodium is 135, the rest of the electrolytes were within normal limits, B1 is 21 and creatinine was 0.65. Troponin was less than 0.012, amylase and lipase were negative, LFTs were within normal limits, urinalysis showed 2+ ketones, trace blood, but no evidence of infection. Currently patient is undergoing surgical evaluation for bilateral upper quadrant abdominal pain, his abdomen remains tender, surgical services are following, his INR is still elevated at 3.7 his Coumadin is on hold for possibility of surgical intervention. He is getting MiraLAX and lactulose for constipation, he is on clear liquid diet, he's had no nausea. He denies any hemoptysis, he is not having any respiratory distress, he is on 2 L of oxygen and pulse ox 97%, he is afebrile. We are asked to see the patient in regards to the right lower lobe nodular density possibility of lung cancer. On 07/02/2020 patient seen in follow-up on medical floor, his abdominal pain although intermittent seems to have improved some. His abdomen is soft, mildly tender, no worsening dyspnea, although she does have some chronic congestion and he is able to bring up some yellowish colored phlegm. No fever overnight, is currently on room air, pulse ox is 93%, lung sounds reveal some scattered rhonchi, patient is receiving breathing treatments, he is on Zosyn for antibiotic coverage, he received a dose of IV Lasix yesterday, he is on Symbicort. His Coumadin remains on hold, she received 10 mg of vitamin K y , today's INR is 1.8, his white count is relatively stable at 11.9, hemoglobin is 13.7, sodium is 141, potassium is 4.4, chloride is 95, BUN is 14, creatinine 0.6, lactic acid is 1.2, patient is not tachycardic, blood pressure is stable, his last lipase was 69, amylase was 39, urinalysis did not show evidence of infection, nausea or vomiting, patient had one bowel movement last 24 hours. No diarrhea On 07/05/2020 patient seen in follow-up following his laparoscopic cholecystectomy. He had just returned to his room on the medical surgical floor half an hour ago, he still drowsy, but arousable is currently on 4 L of oxygen is pulse ox of 9800%, blood pressure is 150/78, heart rate is 72, temperature is 98.5. He is breathing comfortably, does not appear to be in any acute distress, pain is well controlled, his laparoscopic abdominal incisions are clean dry and intact, no MAUREEN drain present, he is on 0.9 at 75 ML per hour, and a Zosyn for empiric antibiotic coverage, no abdominal pain, no nausea or vomiting. On 07/06/2020 patient seen in follow-up on medical floor, today is postop day 1 status post laparoscopic cholecystectomy, patient is well, awake and alert, oriented 3, denies any distress, in no signs of any respiratory difficulty, sounds are clear, no rhonchi or wheezing, today's chest x-ray has been reviewed showing some interstitial prominence possibly related to mild fluid overload, although clinically patient is breathing comfortably. He is currently on 3 L of oxygen pulse ox is 96%, his been afebrile, he is tolerating oral intake, abdomen is soft, nontender, his laparoscopic incisions are clean dry and intact. Cardiology restarted the patient's Coumadin today, INR is 1. he continues on Zosyn for empiric coverage in addition to Kefzol. No acute events overnight On 07/07/2020 patient seen in follow-up on medical floor, he is awake and alert, appears to be in no acute distress, Currently on 3 L of oxygen pulse ox of 95%, hemodynamically stable, he has had no fever or chills. He is tolerating oral diet, abdomen is nontender other than normal mild postsurgical tenderness. No nausea or vomiting. COVID 19 was negative. No fever or chills, he has been on Zosyn for empiric antibiotic coverage, his Coumadin has been resumed. Patient is being discharged to inpatient rehab today Objective - Vital Signs Vital signs: Vital Signs Temp 98.2 F 07/07/20 12:30 Pulse 80 07/07/20 12:30 Resp 16 07/07/20 12:30 BP 113/71 07/07/20 12:30 Pulse Ox 95 07/07/20 12:30 Intake & Output 07/06/20 07/07/20 07/07/20 18:59 06:59 18:59 Intake Total 480 200 Output Total 550 875 Balance -70 -675 Intake: Intake, IV Titration 200 Amount Piperacillin-Tazobactam 3 100 .375 gm In Sodium Chloride 0.9% 100 ml @ 25 mls/hr IVPB Q8H DAWNA Rx#: [id number] Sodium Chloride 0.9% 1, 100 000 ml @ 25 mls/hr IV . Q24H DAWNA Rx#:[id number] Oral 480 Output: Urine 550 875 Other: Voiding Method Diaper Diaper Bedside Commode Indwelling Catheter Indwelling Catheter Indwelling Catheter # Voids 1 0 - Exam GENERAL EXAM: Drowsy but arousable 80-year-old white male, on 3 L of oxygen and the pulse ox 95% comfortable in no apparent distress. HEAD: Normocephalic/atraumatic. EYES: Normal reaction of pupils, equal size. Conjunctiva pink, sclera white. NOSE: Clear with pink turbinates. THROAT: No erythema or exudates. NECK: No masses, no JVD, no thyroid enlargement, no adenopathy. CHEST: No chest wall deformity. Symmetrical expansion. LUNGS: Equal air entry with no crackles, wheeze, rhonchi or dullness. CVS: Irregular rate and rhythm, normal S1 and S2, no gallops, no murmurs, no rubs ABDOMEN: Soft, less distended, a bit tender, no hepatosplenomegaly, normal bowel sounds, no guarding or rigidity. Abdominal lip scopic incisions clean dry and intact, no MAUREEN drain present, abdomen is slightly distended but soft EXTREMITIES: No clubbing, no edema, no cyanosis, 2+ pulses and upper and lower extremities. MUSCULOSKELETAL: Muscle strength and tone normal. SPINE: No scoliosis or deformity SKIN: No rashes CENTRAL NERVOUS SYSTEM: Drowsy, but arousable No focal deficits, tone is normal in all 4 extremities. - Labs CBC & Chem 7: 07/06/20 05:59 07/06/20 05:59 Assessment and Plan Plan: Assessment: #1. Right lower lobe 24 mm spiculated opacity rule out possibility of lung cancer. CT angiogram was completed on 06/27/2020 in view of elevated d-dimer without evidence of pulmonary embolism and showed right lower lobe 24 mm opacity, and enlarged right hilar lymph nodes, and heterogeneous colorless opacities in the right lower lobe possibly infectious/inflammatory versus mild edema #2. Acute cholecystitis. Ultrasound of gallbladder showed moderately distended gallbladder, gallstone along the infundibulum of the gallbladder. CT of the abdomen showed moderate retained stool along the sigmoid colon, descending and transverse colon #3. Status post laparoscopic cholecystectomy for the above, on the 07/05/2020, postoperative day 2 #4. Moderate constipation #5. Diverticulosis of the sigmoid colon #6. Horseshoe kidney #7. Bladder kidney stones #8. Chronic atrial fibrillation with RVR, on Coumadin, which is currently on ho ld for possibility of surgery #9. COPD with FEV1 of 45% of predicted #10. Chronic back and neck pain #11. History of skin cancer #12. Hypertension #13. Hyperlipidemia #14. Former smoker Plan: Patient is going to inpatient rehab today, he has remained stable from pulmonary perspective, continue encouraging deep breathing and coughing, wean FiO2. He is going to inpatient rehab today, following his discharge she will need outpatient follow-up with Dr. Walker in the office in regards to his right lower lobe opacity I performed a history & physical examination of the patient and discussed their management with my nurse practitioner, Domonique Charles. I reviewed the nurse practitioner's note and agree with the documented findings and plan of care. Lung sounds are positive for diminished breath sounds. The findings and the impression was discussed with the patient. I attest to the documentation by the nurse practitioner. Time with Patient: Less than 30
[2020-07-07] MEDS ORDERED: WARFARIN 5 MG TAB PO ONE (18:00)
--- NOTE | 2020-07-08 15:11 | CDI ---
Documentation Clarification Form Date: 07/08/20 From: Pebbles Maradiaga Phone: If you have a question about this query, please contact Marita Troncoso, [employer] at [phone] between 8am and 5pm. Admit Date: 07/02/2020 01:53:00 PM Patient Name: Georges Rockwell Visit Number: [id number] Discharge Date: 07/07/2020 04:25:00 PM ATTENTION: The Clinical Documentation Specialists (CDI) and [facility] Coding Staff appreciate your assistance in clarifying documentation. Please respond to the clarification below the line at the bottom and electronically sign. The CDI & [facility] Coding staff will review the response and follow-up if needed. Please note: Queries are made part of the Legal Health Record. If you have any questions, please contact the author of this message via ITS. Dr. Joey Casiano, Atrial Flutter is documented in the H&P, numerous PNs and DS. History/Risk factors: acute cholecystitis w cholelithasis, hydrops of GB, chronic persistent atrial fibrillation, thoracic vertebra compression fx, hypertensive heart disease, pulmonary fibrosis, dehydration, COPD, Clinical Indicators: Per H&P-EKG tracing personally reviewed by me-atrial flutter/fibrillation with heart rate of 120 EKG/telemetry: Per ED-EKG shows atrial fibrillation with rapid ventricular response at 120 bpm QRS is 88 QT interval 352 QTC is 497. Treatment: Warfarin, Cardizem Cd 120 mg PO daily In your professional opinion, in order to capture the severity of condition; can you please clarify the type of Atrial Flutter if known? Typical/Type I xxx Atypical/Type II Other, please specify Unable to determine MTDD
== END 2020-07-07 16:25 | DRG 418 ==
LOC: EC 14:27 → 6NMEDSUR 16:45 → OBSVTOIN 07-02 13:53 → 5NMEDONC 07-03 22:10
PROVIDERS: ADMIT Hospitalist; ATTEND Hospitalist
PROC: 0FT44ZZ Resection of Gallbladder, Percutaneous Endoscopic Approach (ICD-10-PCS; principal; 2020-07-05 07:30)
PROC: 8E0W4CZ Robotic Assisted Procedure of Trunk Region, Percutaneous Endoscopic Approach (ICD-10-PCS; principal; 2020-07-05 07:30)
DX: K80.00 Calculus of gallbladder with acute cholecystitis without obstruction (principal); K82.1 Hydrops of gallbladder; I48.19 Other persistent atrial fibrillation; M48.50XA Collapsed vertebra, not elsewhere classified, site unspecified, initial encounter for fracture; I48.3 Typical atrial flutter; I11.9 Hypertensive heart disease without heart failure; J84.10 Pulmonary fibrosis, unspecified; E86.0 Dehydration; J44.9 Chronic obstructive pulmonary disease, unspecified; Z20.822 Contact with and (suspected) exposure to COVID-19; M54.12 Radiculopathy, cervical region; G89.29 Other chronic pain; M54.2 Cervicalgia; K59.00 Constipation, unspecified; I08.1 Rheumatic disorders of both mitral and tricuspid valves; Q63.1 Lobulated, fused and horseshoe kidney; K57.30 Diverticulosis of large intestine without perforation or abscess without bleeding; N20.0 Calculus of kidney; N21.0 Calculus in bladder; N28.1 Cyst of kidney, acquired; R79.1 Abnormal coagulation profile; R91.1 Solitary pulmonary nodule; I83.93 Asymptomatic varicose veins of bilateral lower extremities; H53.40 Unspecified visual field defects; E78.5 Hyperlipidemia, unspecified; Z79.01 Long term (current) use of anticoagulants; Z79.51 Long term (current) use of inhaled steroids; Z79.899 Other long term (current) drug therapy; Z87.891 Personal history of nicotine dependence; Z85.828 Personal history of other malignant neoplasm of skin; Z98.1 Arthrodesis status; Z98.42 Cataract extraction status, left eye; Z98.41 Cataract extraction status, right eye; Z98.890 Other specified postprocedural states; Z81.1 Family history of alcohol abuse and dependence; Z80.8 Family history of malignant neoplasm of other organs or systems; Z80.3 Family history of malignant neoplasm of breast
CPT/HCPCS: 36415; 71045; 71046; 74018; 76705; 80048; 80053; 81001; 82150; 83605; 83690; 84484; 85025; 85610; 85730; 87635; 88304; 93005; 94640; 94760; 96374; 99285

== ENCOUNTER → 2020-08-13 | Outpatient (CLI) | payer MEDICARE ==
--- NOTE | 2020-08-14 14:22 | PE ---
EXAMINATION TYPE: PET CT fusion skull to thigh DATE OF EXAM: 08/13/2020 COMPARISON: CT abdomen and pelvis and CTA chest June 27, 2020 chest x-ray August 11, 2020 HISTORY: Solitary pulmonary nodule, abnormal recent chest x-ray and CT. TECHNIQUE: Following the intravenous administration of 9.86 mCi of F-18 FDG, whole body images are p erformed from the skull base to the midthigh. Images are reviewed on the computer in the coronal, ax ial, and sagittal planes. Reconstructed rotating images are created on independent workstation and r eviewed on the computer. A localization and attenuation correction CT is performed in conjunction w ith the PET scan. Blood glucose oblique was 101. SCAN: Initial Scan FINDINGS: SKULL BASE AND NECK: No suspicious hypermetabolic uptake. CHEST, MEDIASTINUM, AND HILAR REGION: Mild to moderate underlying emphysematous change with persisten t moderate biapical pleural/parenchymal scarring. There is persistent mild to moderate bibasilar scar ring and/or atelectasis. There is less prominent 1.4 x 1.1 cm spiculated opacity in the posterior rig ht lower lobe axial image 119. Lesion is ametabolic. No areas of abnormal hypermetabolic uptake. ABDOMEN AND PELVIS: No adrenal masses. Normal excretion. No areas of abnormal hypermetabolic uptake. OSSEOUS STRUCTURES: No areas of abnormal hypermetabolic uptake. OTHER CT: Moderate calcified plaque bilateral carotid bulb level. Severe left atrial dilatation. Mode rate coronary artery calcification. Renal fusion or horseshoe type kidney. Incidental normal-appearing appendix. Diverticula in the left and sigmoid colon. Some compression type fracture deformities in the thoracic spine redemonstrated. Mild hypermetabolic uptake at T9 level consistent with subacute chronic fracture. IMPRESSION: No suspicious hypermetabolic uptake in the area of concern posterior right lower lobe. Ar ea is still present but decreased in size. Resolving infectious or inflammatory process suspected. Lo w-grade neoplasm not entirely excluded. Follow-up CT or PET/CT in 6-12 months time is advised to reas sess.
== END ==
LOC: RADPETMAIN 14:02
PROVIDERS: ATTEND Internal Medicine
DX: R91.1 Solitary pulmonary nodule (principal)
CPT/HCPCS: 78815; A9552

== ENCOUNTER 2020-08-26 10:02 | Inpatient (IN) | payer MEDICARE ==
[2020-08-26] MEDS ORDERED: SODIUM CHLORIDE 0.9% 500 ML 500 ML IV STA (10:16)
--- NOTE | 2020-08-26 10:29 | ED ---
Weakness HPI - General Chief complaint: Weakness Stated complaint: weakness Time Seen by Provider: 08/26/20 10:07 Source: patient, EMS Mode of arrival: EMS Limitations: no limitations - History of Present Illness Initial comments: Patient is an 80-year-old male with history of A. fib, COPD, hypertension, dementia, presenting to the emergency department via EMS with complaints of increasing weakness over the past week. He is currently A&O 2, per EMS this is his baseline. He does live by himself, family checked on him this morning and noticed that he was weaker than normal. Patient states he was weak when he tried to get up from his bed this morning and rolled out of his bed. He denies any pain from this fall. He denies hitting his head. States he walks with a walker. He is not on home oxygen, per pt. He denies any chest pain, he does f eel slightly short of breath, mild cough which he states he always has. He denies any fevers or chills, no belly pain, no nausea or vomiting. He states he did eat an egg sandwich this morning. Patient states he has felt weak ever since his gallbladder was removed and of June. Patient doesn't know his name and location, however he thinks it's 189. Patient has no further complaints. Upon arrival to the ER, he is afebrile, 92/54, 88% on room air. - Related Data Home Medications Medication Instructions Recorded Confirmed Diltiazem HCl [Diltiazem HCl 24Hr 120 mg PO DAILY 04/04/18 08/26/20 ER (CD)] Fluticasone/Vilanterol [Breo 1 puff INHALATION RT-DAILY 04/04/18 08/26/20 Ellipta 200-25 Mcg INH] lisinopriL [Zestril] 10 mg PO BID 04/04/18 08/26/20 [facility] Vitamin & Mineral 1 tab PO BID 12/29/19 08/26/20 Simvastatin [Zocor] 20 mg PO HS 12/29/19 08/26/20 Warfarin Sodium 5 mg PO HS 12/29/19 08/26/20 Albuterol Inhaler [Ventolin Hfa 1 puff INHALATION RT-Q4H PRN 08/26/20 08/26/20 Inhaler] Ipratropium-Albuterol Nebulize 3 ml INHALATION RT-TID 08/26/20 08/26/20 [Duoneb 0.5 mg-3 mg/3 ml Soln] Tamsulosin [Flomax] 0.4 mg PO DAILY 08/26/20 08/26/20 Previous Rx's Medication Instructions Recorded Metoprolol Tartrate [Lopressor] 25 mg PO BID #60 tab 07/02/20 Acetaminophen Tab [Tylenol] 650 mg PO Q6HR PRN tab 07/07/20 Allergies Allergy/AdvReac Type Severity Reaction Status Date / Time No Known Allergies Allergy Verified 08/26/20 12:24 Review of Systems ROS Statement: Those systems with pertinent positive or pertinent negative responses have been documented in the HPI. ROS Other: All systems not noted in ROS Statement are negative. 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 Past Anesthesia/Blood Transfusion Reactions: No Reported Reaction Past Psychological History: No Psychological Hx Reported Smoking Status: Former smoker Past Alcohol Use History: None Reported Past Drug Use History: None Reported - Past Family History Father Additional Family Medical History / Comment(s): Father was a drinker. He at the age of 80yrs. Mother Family Medical History: No Reported History Additional Family Medical History / Comment(s): Mother was healthy and lived to b90yrs old. Daughter(s) Family Medical History: Cancer Additional Family Medical History / Comment(s): Nely had breast cancer. Brother(s) Family Medical History: Cancer Additional Family Medical History / Comment(s): Brother had melanoma skin cancer. Sister(s) Family Medical History: Cancer Additional Family Medical History / Comment(s): Sister had melanoma skin cancer. General Exam - General Exam Comments Initial Comments: GENERAL: Patient appears disheveled, is nontoxic and in no acute distress. HEAD: Atraumatic, normocephalic. There are no hematomas. No signs of basal skull fracture. EYES: Pupils equal round and reactive to light, extraocular movements intact, sclera anicteric, conjunctiva are normal. Eyelids were unremarkable. ENT: TMs normal, nares patent, oropharynx clear without exudates. Moist mucous membranes. NECK: Normal range of motion, supple without lymphadenopathy or JVD. No midline tenderness. LUNGS: Unlabored respirations. Decreased sounds, positive rales HEART: Regular rate and rhythm without murmurs, rubs or gallops. ABDOMEN: Soft, nontender, normoactive bowel sounds. No guarding, no rebound. No masses appreciated. : Deferred MUSCULOSKELETAL: Normal extremities with adequate strength and normal range of motion, no pitting or edema. No clubbing or cyanosis. NEUROLOGICAL: Patient is alert and oriented x 2, does know himself, where he is at but believes the year is 189. Motor and sensory are also intact. Cranial nerves II through XII grossly intact. Symmetrical smile. Normal speech. PSYCH: Normal mood, normal affect. SKIN: Warm, Dry, normal turgor, no rashes or lesions noted. Limitations: no limitations Course Vital Signs 08/26/20 08/26/20 08/26/20 10:05 11:47 13:05 Temperature 98.2 F Pulse Rate 88 91 80 Respiratory 18 18 18 Rate Blood Pressure 92/54 103/70 93/63 O2 Sat by Pulse 88 L 98 97 Oximetry EKG Findings - EKG Comments: EKG Findings:: A. fib, no signs of acute ischemia, similar to previous on June 30. Ventricular rate 93, QRS duration 78, QT 362. Medical Decision Making - Medical Decision Making Patient is an 80-year-old male with history of COPD, A. fib, dementia presenting via EMS with complaints of weakness. Patient did state he rolled out of bed this morning. He denies any pain. He is 88% on room air, afebrile, lower BP at 92/54. Patient has stable hemoglobin, normal white count. INR is 2.3, electrolytes are stable, creatinine is stable, and his CK is 368, troponin is normal. Urine has hematuria, and occasional bacteria. Rapid Covid is positive. Chest x-ray shows posterior infiltrate, correlate for atelectasis or pneumonia. CT of the brain shows no acute process, chronic changes. Patient remains hypoxic without oxygen, he is currently 98% on 2 L. She has been given fluids secondary to slight hypotension. Patient will be admitted for weakness, hypoxia, Covid. Dr. Solomon is accepting, ID and pulmonology on consult. Case discussed with Dr. Wong. - Lab Data Result diagrams: 08/26/20 10:41 08/26/20 10:41 Lab Results 08/26/20 08/26/20 08/26/20 Range/Units 10:41 10:41 10:41 WBC 5.4 (3.8-10.6) k/uL RBC 4.99 (4.30-5.90) m/uL Hgb 14.6 (13.0-17.5) gm/dL Hct 43.7 (39.0-53.0) % MCV 87.6 (80.0-100.0) fL MCH 29.3 (25.0-35.0) pg MCHC 33.4 (31.0-37.0) g/dL RDW 13.4 (11.5-15.5) % Plt Count 179 (150-450) k/uL MPV 8.6 Neutrophils % 68 % Lymphocytes % 21 % Monocytes % 9 % Eosinophils % 0 % Basophils % 1 % Neutrophils # 3.7 (1.3-7.7) k/uL Lymphocytes # 1.1 (1.0-4.8) k/uL Monocytes # 0.5 (0-1.0) k/uL Eosinophils # 0.0 (0-0.7) k/uL Basophils # 0.1 (0-0.2) k/uL PT 22.3 H (9.0-12.0) sec INR 2.3 H (<1.2) APTT 34.1 H (22.0-30.0) sec Sodium (137-145) mmol/L Potassium (3.5-5.1) mmol/L Chloride (98-107) mmol/L Carbon Dioxide (22-30) mmol/L Anion Gap mmol/L BUN (9-20) mg/dL Creatinine (0.66-1.25) mg/dL Est GFR (CKD-EPI)AfAm (>60 ml/min/1.73 sqM) Est GFR (CKD-EPI)NonAf (>60 ml/min/1.73 sqM) Glucose (74-99) mg/dL Plasma Lactic Acid Sacha (0.7-2.0) mmol/L Calcium (8.4-10.2) mg/dL Magnesium (1.6-2.3) mg/dL Total Bilirubin (0.2-1.3) mg/dL AST (17-59) U/L ALT (4-49) U/L Alkaline Phosphatase (38-126) U/L Creatine Kinase (55-170) U/L Troponin I (0.000-0.034) ng/mL NT-Pro-B Natriuret Pep pg/mL Total Protein (6.3-8.2) g/dL Albumin (3.5-5.0) g/dL Urine Color Yellow Urine Appearance Clear (Clear) Urine pH 5.5 (5.0-8.0) Ur Specific Wallace 1.024 (1.001-1.035) Urine Protein 1+ H (Negative) Urine Glucose (UA) Negative (Negative) Urine Ketones Negative (Negative) Urine Blood Moderate H (Negative) Urine Nitrite Negative (Negative) Urine Bilirubin Negative (Negative) Urine Urobilinogen <2.0 (<2.0) mg/dL Ur Leukocyte Esterase Negative (Negative) Urine RBC 60 H (0-5) /hpf Urine WBC 1 (0-5) /hpf Urine Bacteria Occasional H (None) /hpf Urine Mucus Rare H (None) /hpf Urine Sperm Rare (None) /hpf Coronavirus (PCR) (Not Detectd) 08/26/20 08/26/20 08/26/20 Range/Units 10:41 10:41 10:41 WBC (3.8-10.6) k/uL RBC (4.30-5.90) m/uL Hgb (13.0-17.5) gm/dL Hct (39.0-53.0) % MCV (80.0-100.0) fL MCH (25.0-35.0) pg MCHC (31.0-37.0) g/dL RDW (11.5-15.5) % Plt Count (150-450) k/uL MPV Neutrophils % % Lymphocytes % % Monocytes % % Eosinophils % % Basophils % % Neutrophils # (1.3-7.7) k/uL Lymphocytes # (1.0-4.8) k/uL Monocytes # (0-1.0) k/uL Eosinophils # (0-0.7) k/uL Basophils # (0-0.2) k/uL PT (9.0-12.0) sec INR (<1.2) APTT (22.0-30.0) sec Sodium 136 L (137-145) mmol/L Potassium 4.4 (3.5-5.1) mmol/L Chloride 102 (98-107) mmol/L Carbon Dioxide 28 (22-30) mmol/L Anion Gap 6 mmol/L BUN 30 H (9-20) mg/dL Creatinine 0.70 (0.66-1.25) mg/dL Est GFR (CKD-EPI)AfAm >90 (>60 ml/min/1.73 sqM) Est GFR (CKD-EPI)NonAf 89 (>60 ml/min/1.73 sqM) Glucose 113 H (74-99) mg/dL Plasma Lactic Acid Sacha 1.5 (0.7-2.0) mmol/L Calcium 8.3 L (8.4-10.2) mg/dL Magnesium 1.9 (1.6-2.3) mg/dL Total Bilirubin 0.6 (0.2-1.3) mg/dL AST 102 H (17-59) U/L ALT 46 (4-49) U/L Alkaline Phosphatase 102 (38-126) U/L Creatine Kinase 368 H (55-170) U/L Troponin I 0.020 (0.000-0.034) ng/mL NT-Pro-B Natriuret Pep pg/mL Total Protein 6.6 (6.3-8.2) g/dL Albumin 3.2 L (3.5-5.0) g/dL Urine Color Urine Appearance (Clear) Urine pH (5.0-8.0) Ur Specific Wallace (1.001-1.035) Urine Protein (Negative) Urine Glucose (UA) (Negative) Urine Ketones (Negative) Urine Blood (Negative) Urine Nitrite (Negative) Urine Bilirubin (Negative) Urine Urobilinogen (<2.0) mg/dL Ur Leukocyte Esterase (Negative) Urine RBC (0-5) /hpf Urine WBC (0-5) /hpf Urine Bacteria (None) /hpf Urine Mucus (None) /hpf Urine Sperm (None) /hpf Coronavirus (PCR) (Not Detectd) 08/26/20 08/26/20 Range/Units 10:41 10:41 WBC (3.8-10.6) k/uL RBC (4.30-5.90) m/uL Hgb (13.0-17.5) gm/dL Hct (39.0-53.0) % MCV (80.0-100.0) fL MCH (25.0-35.0) pg MCHC (31.0-37.0) g/dL RDW (11.5-15.5) % Plt Count (150-450) k/uL MPV Neutrophils % % Lymphocytes % % Monocytes % % Eosinophils % % Basophils % % Neutrophils # (1.3-7.7) k/uL Lymphocytes # (1.0-4.8) k/uL Monocytes # (0-1.0) k/uL Eosinophils # (0-0.7) k/uL Basophils # (0-0.2) k/uL PT (9.0-12.0) sec INR (<1.2) APTT (22.0-30.0) sec Sodium (137-145) mmol/L Potassium (3.5-5.1) mmol/L Chloride (98-107) mmol/L Carbon Dioxide (22-30) mmol/L Anion Gap mmol/L BUN (9-20) mg/dL Creatinine (0.66-1.25) mg/dL Est GFR (CKD-EPI)AfAm (>60 ml/min/1.73 sqM) Est GFR (CKD-EPI)NonAf (>60 ml/min/1.73 sqM) Glucose (74-99) mg/dL Plasma Lactic Acid Sacha (0.7-2.0) mmol/L Calcium (8.4-10.2) mg/dL Magnesium (1.6-2.3) mg/dL Total Bilirubin (0.2-1.3) mg/dL AST (17-59) U/L ALT (4-49) U/L Alkaline Phosphatase (38-126) U/L Creatine Kinase (55-170) U/L Troponin I (0.000-0.034) ng/mL NT-Pro-B Natriuret Pep 3160 pg/mL Total Protein (6.3-8.2) g/dL Albumin (3.5-5.0) g/dL Urine Color Urine Appearance (Clear) Urine pH (5.0-8.0) Ur Specific Wallace (1.001-1.035) Urine Protein (Negative) Urine Glucose (UA) (Negative) Urine Ketones (Negative) Urine Blood (Negative) Urine Nitrite (Negative) Urine Bilirubin (Negative) Urine Urobilinogen (<2.0) mg/dL Ur Leukocyte Esterase (Negative) Urine RBC (0-5) /hpf Urine WBC (0-5) /hpf Urine Bacteria (None) /hpf Urine Mucus (None) /hpf Urine Sperm (None) /hpf Coronavirus (PCR) Detected A (Not Detectd) Disposition Clinical Impression: Weakness, SARS-CoV-2 positive, Hypoxia Disposition: ADMITTED IP TO THIS [facility] Condition: Stable Decision Date: 08/26/20 Decision Time: 12:58
[2020-08-26 10:57] LABS: Basophils # (A) 0.1 k/uL (0-0.2); Basophils % (A) 1 %; Eosinophils % (A) 0 %; HCT 43.7 % (39.0-53.0); HGB 14.6 gm/dL (13.0-17.5); Lymphocytes # (A) 1.1 k/uL (1.0-4.8); Lymphocytes % (A) 21 %; MCH 29.3 pg (25.0-35.0); MCHC 33.4 g/dL (31.0-37.0); MCV 87.6 fL (80.0-100.0); Mean Platelet Volume 8.6; Monocytes # (A) 0.5 k/uL (0-1.0); Monocytes % (A) 9 %; Neutrophils # (A) 3.7 k/uL (1.3-7.7); Neutrophils % (A) 68 %; Platelet Count 179 k/uL (150-450); RBC 4.99 m/uL (4.30-5.90); RDW 13.4 % (11.5-15.5); WBC 5.4 k/uL (3.8-10.6)
[2020-08-26 11:05] LABS: INR 2.3 (<1.2); Partial Thromboplastin Time 34.1 sec (22.0-30.0); Prothrombin Time 22.3 sec (9.0-12.0)
[2020-08-26 11:06] LABS: ALT 46 U/L (4-49); AST 102 U/L (17-59); African American GFR (CKD) >90 (>60 ml/min/1.73 sqM); Albumin 3.2 g/dL (3.5-5.0); Alkaline Phosphatase 102 U/L (38-126); Anion Gap 6 mmol/L; Blood Urea Nitrogen 30 mg/dL (9-20); Calcium 8.3 mg/dL (8.4-10.2); Carbon Dioxide 28 mmol/L (22-30); Chloride 102 mmol/L (98-107); Creatine Kinase 368 U/L (55-170); Glucose 113 mg/dL (74-99); Magnesium 1.9 mg/dL (1.6-2.3); Non-African American GFR(CKD) 89 (>60 ml/min/1.73 sqM); Potassium 4.4 mmol/L (3.5-5.1); Sodium 136 mmol/L (137-145); Total Bilirubin 0.6 mg/dL (0.2-1.3); Total Protein 6.6 g/dL (6.3-8.2)
--- NOTE | 2020-08-26 11:21 | CT ---
EXAMINATION TYPE: CT brain wo con DATE OF EXAM: 08/26/2020 COMPARISON: 04/04/2018 HISTORY: Weakness CT DLP: 1119.4 mGycm Automated exposure control for dose reduction was used. FINDINGS: Moderate generalized degenerative change with low attenuation in the white matter is nonspecific. No midline shift or mass effect. Atherosclerotic change of the vasculature. Calvarium intact. Partially empty sella turcica. Craniocervical junction maintained. Orbits are symmetric. No diagnostic evidence of sinusitis. Nasal septal deviation noted. IMPRESSION: DEGENERATIVE AND NONSPECIFIC WHITE MATTER CHANGES MOST TYPICAL REMOTE WHITE MATTER ISCHEMIA. NO ACUTE HEMORRHAGE OR MASS EFFECT.
--- NOTE | 2020-08-26 11:34 | XR ---
EXAMINATION TYPE: XR chest 2V DATE OF EXAM: 08/26/2020 COMPARISON: 07/06/2020, 06/30/2020 INDICATION: Weakness TECHNIQUE: Frontal and lateral views of the chest are obtained. FINDINGS: The heart size is normal. The pulmonary vasculature is normal. Posterior infiltrate is present most likely at the right base.. There is a compression formation within the mid thoracic spine which progressive from comparison. Pos terior wall displacement is not identified on these images. A lower thoracic spine compression deform ity is stable. IMPRESSION: 1. Posterior infiltrate. Correlate for atelectasis or pneumonia. 2. Note is made of a progressive compression deformity with severe loss of vertebral body height mid thoracic region.
[2020-08-26] MEDS ORDERED: ACETAMINOPHEN TAB 325 MG TAB PO PRN (12:55)
[2020-08-26] MEDS ORDERED: NALOXONE 0.4 MG/ML 1 ML VIAL IV PRN (12:55)
[2020-08-26] MEDS ORDERED: ONDANSETRON 4 MG/2 ML VIAL IVP PRN (12:55)
[2020-08-26] MEDS: DEXAMETHASONE SOD PHOSPHATE 10 MG/ML 1 ML VIAL IV SCH (13:18)
[2020-08-26 13:51] LABS: Appearance,Urine Clear (Clear); Bacteria,Urine Occasional /hpf; Bilirubin,Urine Negative (Negative); Blood,Urine Moderate (Negative); Color,Urine Yellow; Glucose,Urine (UA) Negative (Negative); Ketones,Urine Negative (Negative); Leukocyte Esterase,Urine Negative (Negative); Mucus,Urine Rare /hpf; Nitrite,Urine Negative (Negative); PH, Urine 5.5 (5.0-8.0); Protein,Urine 1+ (Negative); RBC,Urine 60 /hpf (0-5); Specific Gravity,Urine 1.024 (1.001-1.035); Sperm,Urine Rare /hpf; Urobilinogen,Urine <2.0 mg/dL (<2.0); WBC,Urine 1 /hpf (0-5)
[2020-08-26] MEDS: SODIUM CHLORIDE 0.9% 1,000 ML IV SCH (14:38)
--- NOTE | 2020-08-26 19:50 | P.HPIM ---
History of Present Illness H&P Date: 08/26/20 Chief Complaint: Increasing weakness History of presenting complaint: This is a 80-year-old patient of Dr. Lozoya. 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 Patient lives with his mentally challenged son. Daughter lives next door. Patient presented to the ER earlier today. Via EMS. Patient had been increasing weakness over last few days. Rather tired. Family checked him and this morning and noticed that he was becoming usual. It was so weak that when he tried to get out of bed he rolled out of his bed this morning. No injury. He normally uses a walker. Denies any chest pain. Some shortness of breath. Some cough. No fever no chills. No diarrhea. He did eat a Excedrins this morning. Blood pressure was in the lower side in the 90s systolics and pulse ox was 88% on room air. Patient did test positive for COVID. Patient did have a lung mass for which she had a PET scan that came back to be negative. Review of systems: GEN.: Tired rundown EYES: None HEENT: None NECK: None RESPIRATORY: Some shortness of breath CARDIOVASCULAR: None GASTROINTESTINAL: As above GENITOURINARY: None MUSCULOSKELETAL: Joint pains LYMPHATICS: None HEMATOLOGICAL: None PSYCHIATRY: She is a bit low NEUROLOGICAL: Does use a walker Past medical history to include: Atrial fibrillation, COPD, hypertension, skin cancer involving the left cheek, resected, chronic back pain, chronic back pain with radiculopathy number stent involving the right upper extremity in the hands, varicose veins, hypertension, hyperlipidemia, left artery childhood injury with decreased vision, horseshoe kidney, colonic diverticulosis Social history: Lives at home with his mentally handicapped son. Son is highly functional below. Has home oxygen but does not better. Daughter lives next dose. Does not smoke. No alcohol. Physical examination: VITAL SIGNS: 97.6, 83, 18, 143/98, 94% on 2 L GENERAL: BMI 21.1, laying in bed, tired and lethargic EYES: Pupils equal. Conjunctiva normal. HEENT: External appearance of nose and ears normal, oral cavity dry mucous membranes NECK: JVD not raised; masses not palpable. HEART: First and second heart sounds are normal; no edema. LUNGS: Respiratory rate increased; decreased breath sounds. ABDOMEN: Soft, nontender, no guarding rigidity liver spleen not palpable, no masses palpable. PSYCH: Tired lethargic answer some questions NEUROLOGICAL: Cranial nerves grossly intact; no facial asymmetry, power and sensation grossly intact. LYMPHATICS: No lymph nodes palpable in the axilla and neck INVESTIGATIONS, reviewed in the clinical context: WBC 5.4 hemoglobin 14.6 platelets 179 INR 2.3 potassium 4.4 creatinine 0.70 BNP 3160 albumin 3.2 UA showing positive for blood 60 RBC. Coronavirus [PCR]-detected EKG tracing personally reviewed by me-atrial flutter fibrillation with a rate of 93 Chest x-ray film personally reviewed by me-showing right-sided infiltrate. Questionable other infiltrates Assessment and plan: -Right lower lobe pneumonia. Suspect gram-negative organism. Add ceftriaxone. -COVID 19 pneumonia. Add dexamethasone, patient already on Coumadin -Acute hypoxic respiratory failure from above. Supplement oxygen -Persistent atrial flutter fibrillation rate rate controlled. Telemetry. -Coumadin monitoring -COPD, bronchodilators -Essential hypertension, continue with Lopressor -Hyperlipidemia continue with Zocor -Horseshoe kidney -Chronic diverticulosis, asymptomatic -Multiple level thoracic vertebra compression fracture, chronic. Pain medications as needed -24 mm spiculated opacity, right bases right lower lobe: PET scan was negative Consultation made to pulmonary and ID. Telemetry. 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 Past Anesthesia/Blood Transfusion Reactions: No Reported Reaction Past Psychological History: No Psychological Hx Reported Smoking Status: Former smoker Past Alcohol Use History: None Reported Past Drug Use History: None Reported - Past Family History Father Additional Family Medical History / Comment(s): Father was a drinker. He at the age of 80yrs. Mother Family Medical History: No Reported History Additional Family Medical History / Comment(s): Mother was healthy and lived to b90yrs old. Daughter(s) Family Medical History: Cancer Additional Family Medical History / Comment(s): Nely had breast cancer. Brother(s) Family Medical History: Cancer Additional Family Medical History / Comment(s): Brother had melanoma skin can cer. Sister(s) Family Medical History: Cancer Additional Family Medical History / Comment(s): Sister had melanoma skin cancer. Medications and Allergies Home Medications Medication Instructions Recorded Confirmed Type Diltiazem HCl [Diltiazem HCl 24Hr 120 mg PO DAILY 04/04/18 08/26/20 History ER (CD)] Fluticasone/Vilanterol [Breo 1 puff INHALATION RT-DAILY 04/04/18 08/26/20 History Ellipta 200-25 Mcg INH] lisinopriL [Zestril] 10 mg PO BID 04/04/18 08/26/20 History [facility] Vitamin & Mineral 1 tab PO BID 12/29/19 08/26/20 History Simvastatin [Zocor] 20 mg PO HS 12/29/19 08/26/20 History Warfarin Sodium 5 mg PO HS 12/29/19 08/26/20 History Metoprolol Tartrate [Lopressor] 25 mg PO BID #60 tab 07/02/20 08/26/20 Rx Acetaminophen Tab [Tylenol] 650 mg PO Q6HR PRN tab 07/07/20 08/26/20 Rx Albuterol Inhaler [Ventolin Hfa 1 puff INHALATION RT-Q4H PRN 08/26/20 08/26/20 History Inhaler] Ipratropium-Albuterol Nebulize 3 ml INHALATION RT-TID 08/26/20 08/26/20 History [Duoneb 0.5 mg-3 mg/3 ml Soln] Tamsulosin [Flomax] 0.4 mg PO DAILY 08/26/20 08/26/20 History Allergies Allergy/AdvReac Type Severity Reaction Status Date / Time No Known Allergies Allergy Verified 08/26/20 12:24 Physical Exam Vitals: Vital Signs Temp Pulse Resp BP Pulse Ox 08/26/20 16:39 65 18 93/53 95 08/26/20 14:38 77 18 103/62 96 08/26/20 13:05 80 18 93/63 97 08/26/20 11:47 91 18 103/70 98 08/26/20 10:05 98.2 F 88 18 92/54 88 L Intake and Output 08/26/20 08/26/20 08/26/20 06:59 14:59 22:59 Other: Weight 72.575 kg Results CBC & Chem 7: 08/26/20 10:41 08/26/20 10:41 Labs: Abnormal Lab Results - Last 24 Hours (Table) 08/26/20 08/26/20 08/26/20 Range/Units 10:41 10:41 10:41 PT 22.3 H (9.0-12.0) sec INR 2.3 H (<1.2) APTT 34.1 H (22.0-30.0) sec Sodium 136 L (137-145) mmol/L BUN 30 H (9-20) mg/dL Glucose 113 H (74-99) mg/dL Calcium 8.3 L (8.4-10.2) mg/dL AST 102 H (17-59) U/L Creatine Kinase 368 H (55-170) U/L Albumin 3.2 L (3.5-5.0) g/dL Urine Protein 1+ H (Negative) Urine Blood Moderate H (Negative) Urine RBC 60 H (0-5) /hpf Urine Bacteria Occasional H (None) /hpf Urine Mucus Rare H (None) /hpf Coronavirus (PCR) (Not Detectd) 08/26/20 Range/Units 10:41 PT (9.0-12.0) sec INR (<1.2) APTT (22.0-30.0) sec Sodium (137-145) mmol/L BUN (9-20) mg/dL Glucose (74-99) mg/dL Calcium (8.4-10.2) mg/dL AST (17-59) U/L Creatine Kinase (55-170) U/L Albumin (3.5-5.0) g/dL Urine Protein (Negative) Urine Blood (Negative) Urine RBC (0-5) /hpf Urine Bacteria (None) /hpf Urine Mucus (None) /hpf Coronavirus (PCR) Detected A (Not Detectd)
[2020-08-26] MEDS: WARFARIN 5 MG TAB PO SCH (20:37)
[2020-08-26] MEDS: ATORVASTATIN 10 MG TAB PO SCH (20:37)
[2020-08-27] MEDS: SODIUM CHLORIDE 0.9% 1,000 ML IV SCH ×2 (01:10→18:14)
[2020-08-27 05:30] LABS: D-Dimer 1.35 mg/L FEU (<0.60); INR 2.2 (<1.2); Prothrombin Time 21.2 sec (9.0-12.0)
--- NOTE | 2020-08-27 05:43 | CONS ---
CONSULTATION DATE OF SERVICE: 08/26/2020 REASON FOR CONSULTATION: COVID-19 infection. HISTORY OF PRESENT ILLNESS: The patient is an 80-year-old male who has been brought into the ER this morning by EMS after apparently the patient was noticed to have rolled out of the bed and noticed to be weak. The patient denies having any headache or losing any consciousness. The patient was noticed to be hypoxic on presentation to the hospital with pulse ox of 88% on room air. The patient was afebrile on admission and no fever has been recorded since then. The patient did have a normal white count with no lymphopenia. Creatinine was normal. AST mildly elevated. CRP and procalcitonin have not been done. Urine was some hematuria. Chest x-ray with some infiltrate. The patient's myrick PCR came back positive. He has been in admitted to the hospital for further workup. Infectious Disease was consulted for further management. Patient at time of my evaluation remains to be lethargic, sleepy, though he opens his eyes when I asked questions but did not answer any questions, so most of the information has been obtained from review of the chart and talking to nursing staff. No vomiting or diarrhea has been reported either. The patient currently does not have any skin breakdown. REVIEW OF SYSTEMS: Positive points have been mentioned in HPI. Complete review could not be obtained because of underlying mental status. PAST MEDICAL HISTORY: COPD, hypertension, atrial fibrillation, skin cancer. PAST SURGICAL HISTORY: Bilateral cataract surgery, cervical decompression, diskectomy and fusion. SOCIAL HISTORY: Remote history of smoking. No drinking or drug use. FAMILY HISTORY: Father with history of colon cancer. Daughter with history of breast cancer. ALLERGIES: No known drug allergies. MEDICATIONS: The patient is currently on Tylenol, vitamin C, Lipitor, Rocephin, dexamethasone, Cardizem, Coumadin, Narcan, Flomax. PHYSICAL EXAMINATION: VITAL SIGNS: Blood pressure 95/60 with a pulse of 68, temperature 97.7, he is 97% on 2 L nasal cannula. GENERAL DESCRIPTION: Patient is an elderly male lying in bed in no distress. HEENT: Examination shows no pallor or scleral icterus. Oral mucous membrane is dry. NECK: Trachea central, no thyromegaly. LUNGS: Unlabored breathing, decreased intensity of breath sounds, no wheeze or crackle. HEART: S1-S2, regular rate and rhythm. ABDOMEN: Soft, no tenderness. EXTREMITIES: No edema of the feet. SKIN: No rash or mass palpable. NEUROLOGICAL: Patient is awake, alert, nonverbal. Orientation could not be determined. LABS: Hemoglobin is 14, white count 5.4, BUN of 30, creatinine 0.70. AST is mildly elevated. DIAGNOSTIC IMPRESSION: Patient with presentation to the hospital with weakness, fall in this patient noted to be slightly hypoxic on presentation to hospital. X-ray with some infiltrate in this patient with no fever or lymphopenia. CRP and procalcitonin have not been done. Positive COVID test with concern for possible mild COVID-19 infection. PLAN: 1. The patient has been started on dexamethasone, to continue along with Coumadin anticoagulation the patient is on. Will add ascorbic acid and zinc. 2. Will hold on remdesivir at this point. 3. Droplet isolation and respiratory support. 4. We will follow on clinical condition and further adjust medication if needed. Thank you for this consultation. Will follow this patient along with you. MMODL / IJN: [id number] /
[2020-08-27] MEDS: SYMBICORT 160-4.5 MCG INHALER INHALATION SCH ×2 (07:38→20:39)
--- NOTE | 2020-08-27 10:42 | P.CNPUL ---
History of Present Illness Consult date: 08/27/20 Requesting physician: Dwayne Solomon Reason for consult: other Chief complaint: Weakness History of present illness: 80-year-old white male patient with multiple medical problems including COPD wi th baseline FEV1 of 45% of predicted, chronic A. fib with history of ablation, and patient reverted back to A. fib, on Coumadin for anticoagulation, hypertension, hyperlipidemia, former smoker, chronic back pain and chronic neck pain, who came into the emergency department on 08/26/2020 for evaluation of weakness over the past week. He is a poor historian, most history was extracted from the ED documentation, patient states she is not sure why he is in the hospital, he states he feels great. She does live by himself, family checks in on him, and this morning noticed that she was weaker than normal. He tried to get up out of his bed in the morning and rolled out of his bed. Did not hit his head, no pain or injury. Normally walks with a walker. He states he is chronically short of breath, however not any more than usual, he does have a mild cough which is not any worse than usual, no fever or chills, no abdominal pain, no nausea vomiting or diarrhea. Had a recent history of cholecystectomy in June 2020. The patient lives at home with his mentally handicapped son who is slightly functional, he is on home oxygen however he does not use it. His daughter lives next door. When patient was here in June with abdominal pain CT imaging revealed a right lower lobe 24 mm spiculated opacity and enlarged right hilar lymph nodes. Outpatient PET scan was completed on 08/14/2020 showing no suspicious hypermetabolic uptake in the area of concern in the posterior right lower lobe, and on follow-up the area was decreased in size raising possibility of resolving infectious or inflammatory process. Low-grade neoplasm was not entirely excluded although considered less likely, and follow- up CT or PET CT in 6-12 months was recommended. In view of increased confusion brain CT was completed showing degenerative and nonspecific white matter changes most typical of remote white matter ischemia but no acute hemorrhage or mass effect. Chest x-ray showed posterior right base infiltrate. And progressive compression deformity with severe loss of vertebral body in the thoracic region spine. Coronavirus PCR was completed and patient was positive for COVID 19. 2 L of oxygen pulse ox is 98%, patient is afebrile, blood pressures 114/71, he is in A. fib on the monitor, and the rate is controlled. Today's INR is 2.2, CBC was completely within normal limits, sodium was 136, BUN was 30, gustatory electrolytes and creatinine were within normal limits. Plasma lactic acid was 1 .5. Urinalysis showed moderate amount of blood, but no definite urinary tract infection. Troponin was negative at 0.020, proBNP was 3160. CK was 368, CRP is 43.7. The patient denies any chest pain, denies any pleurisy, his cough is at baseline, no hemoptysis. He was started on vitamins including vitamin C, D and zinc, he was given 500 mL of 0.9 NS fluid bolus, and Rocephin. Pro-calcitonin level is pending Review of Systems All systems: negative Constitutional: Reports fatigue, Reports weakness, Denies chills, Denies fever Eyes: denies blurred vision, denies pain Ears, nose, mouth and throat: Denies headache, Denies sore throat Cardiovascular: Denies chest pain, Denies shortness of breath Respiratory: Reports cough, Reports home oxygen Gastrointestinal: Denies abdominal pain, Denies diarrhea, Denies nausea, Denies vomiting Musculoskeletal: Denies myalgias Integumentary: Denies pruritus, Denies rash Neurological: Reports change in mentation, Reports weakness, Denies numbness Psychiatric: Denies anxiety, Denies depression Endocrine: Denies fatigue, Denies weight change Past Medical History Past Medical History: Atrial Fibrillation, Cancer, COPD, Hypertension Additional Past Medical History / Comment(s): COPD with an FEV1 of 45% of predicted, chronic atrial fibrillation, skin cancer involving the left cheek resected surgically, chronic back pain, chronic neck pain with radiculopathy and numbness and tingling involving the right upper extremity and the hand and the lower extremities, varicose veins bilaterally, hypertension, hyperlipidemia, history of childhood left eye injury with limited vision involving the left eye. 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 Past Anesthesia/Blood Transfusion Reactions: No Reported Reaction Past Psychological History: No Psychological Hx Reported Smoking Status: Former smoker Past Alcohol Use History: None Reported Past Drug Use History: None Reported - Past Family History Father Additional Family Medical History / Comment(s): Father was a drinker. He at the age of 80yrs. Mother Family Medical History: No Reported History Additional Family Medical History / Comment(s): Mother was healthy and lived to b90yrs old. Daughter(s) Family Medical History: Cancer Additional Family Medical History / Comment(s): Nely had breast cancer. Brother(s) Family Medical History: Cancer Additional Family Medical History / Comment(s): Brother had melanoma skin cancer. Sister(s) Family Medical History: Cancer Additional Family Medical History / Comment(s): Sister had melanoma skin cancer. Medications and Allergies Home Medications Medication Instructions Recorded Confirmed Type Diltiazem HCl [Diltiazem HCl 24Hr 120 mg PO DAILY 04/04/18 08/26/20 History ER (CD)] Fluticasone/Vilanterol [Breo 1 puff INHALATION RT-DAILY 04/04/18 08/26/20 History Ellipta 200-25 Mcg INH] lisinopriL [Zestril] 10 mg PO BID 04/04/18 08/26/20 History [facility] Vitamin & Mineral 1 tab PO BID 12/29/19 08/26/20 History Simvastatin [Zocor] 20 mg PO HS 12/29/19 08/26/20 History Warfarin Sodium 5 mg PO HS 12/29/19 08/26/20 History Metoprolol Tartrate [Lopressor] 25 mg PO BID #60 tab 07/02/20 08/26/20 Rx Acetaminophen Tab [Tylenol] 650 mg PO Q6HR PRN tab 07/07/20 08/26/20 Rx Albuterol Inhaler [Ventolin Hfa 1 puff INHALATION RT-Q4H PRN 08/26/20 08/26/20 History Inhaler] Ipratropium-Albuterol Nebulize 3 ml INHALATION RT-TID 08/26/20 08/26/20 History [Duoneb 0.5 mg-3 mg/3 ml Soln] Tamsulosin [Flomax] 0.4 mg PO DAILY 08/26/20 08/26/20 History Allergies Allergy/AdvReac Type Severity Reaction Status Date / Time No Known Allergies Allergy Verified 08/26/20 12:24 Physical Exam Vitals: Vital Signs Temp Pulse Resp BP Pulse Ox 08/27/20 04:51 97.9 F 69 20 116/74 98 08/27/20 00:23 58 L 20 104/59 96 08/26/20 20:43 97.7 F 68 22 95/60 97 08/26/20 19:53 97 08/26/20 16:39 65 18 93/53 95 08/26/20 14:38 77 18 103/62 96 08/26/20 13:05 80 18 93/63 97 08/26/20 11:47 91 18 103/70 98 GENERAL EXAM: Alert, very pleasant, 80-year-old white male, 2 L of oxygen a pulse ox of 98% comfortable in no apparent distress. HEAD: Normocephalic/atraumatic. EYES: Normal reaction of pupils, equal size. Conjunctiva pink, sclera white. NOSE: Clear with pink turbinates. THROAT: No erythema or exudates. NECK: No masses, no JVD, no thyroid enlargement, no adenopathy. CHEST: No chest wall deformity. Symmetrical expansion. LUNGS: Equal air entry with no crackles, wheeze, rhonchi or dullness. CVS: Irregular rate and rhythm, normal S1 and S2, no gallops, no murmurs, no rubs ABDOMEN: Soft, nontender. No hepatosplenomegaly, normal bowel sounds, no guarding or rigidity. EXTREMITIES: No clubbing, no edema, no cyanosis, 2+ pulses and upper and lower extremities. MUSCULOSKELETAL: Muscle strength and tone normal. SPINE: No scoliosis or deformity SKIN: No rashes CENTRAL NERVOUS SYSTEM: Alert and oriented -2. No focal deficits, tone is normal in all 4 extremities. PSYCHIATRIC: Alert and oriented -2. Appropriate affect. Intact judgment and insight. Results - Laboratory Findings CBC and BMP: 08/26/20 10:41 08/26/20 10:41 PT/INR, D-dimer PT 21.2 sec (9.0-12.0) H 08/27/20 04:47 INR 2.2 (<1.2) H 08/27/20 04:47 D-Dimer 1.35 mg/L FEU (<0.60) H 08/27/20 04:47 Abnormal lab findings: Abnormal Labs 08/26/20 08/26/20 08/26/20 10:41 10:41 10:41 PT 22.3 H INR 2.3 H APTT 34.1 H D-Dimer Sodium 136 L BUN 30 H Glucose 113 H Calcium 8.3 L AST 102 H Creatine Kinase 368 H C-Reactive Protein Albumin 3.2 L Urine Protein 1+ H Urine Blood Moderate H Urine RBC 60 H Urine Bacteria Occasional H Urine Mucus Rare H Coronavirus (PCR) 08/26/20 08/27/20 08/27/20 10:41 04:47 04:47 PT 21.2 H INR 2.2 H APTT D-Dimer 1.35 H Sodium BUN Glucose Calcium AST Creatine Kinase C-Reactive Protein 43.7 H Albumin Urine Protein Urine Blood Urine RBC Urine Bacteria Urine Mucus Coronavirus (PCR) Detected A - Diagnostic Findings Chest x-ray: report reviewed, image reviewed Additional studies: Results of the brain CT, and EKG reviewed Assessment and Plan Plan: Assessment: #1. Acute COVID 19 infection, and possibility of COVID 19 pneumonia, chest x- ray shows right posterior lower lobe infiltrate, although this has been present on chest imaging since June 2020, and patient had outpatient PET scan in the area in the right lower lobe did not show suspicious uptake #2. Confusion, rule out underlying dementia versus acute metabolic encephalop athy, brain CT showed no acute intracranial abnormality #3. Rule out possibility of urinary tract infection, patient is covered with Rocephin #4. Chronic A. fib on Coumadin #5. Recent history of acute cholecystitis status post robotically assisted cholecystectomy in June 2020 #6. Chronic COPD with FEV1 of 45% predicted, patient has home oxygen however model is compliant with that #7. Back and neck pain, chronic, and chest x-ray showed progressive compression deformity with severe loss of vertebral body in the mid thoracic region #8. History of skin cancer with resection #9. Hypertension #10. Hyperlipidemia #11. Former smoker #12. History of bladder and kidney stones #13. 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 Continue Coumadin, will continue dexam ethasone, vitamins, and continue supportive treatment will monitor for worsening dyspnea or hypoxia. We'll continue to follow I performed a history & physical examination of the patient and discussed their management with my nurse practitioner, Domonique Charles. I reviewed the nurse practitioner's note and agree with the documented findings and plan of care. Lung sounds are positive for diminished breath sounds. The findings and the impression was discussed with the patient. I attest to the documentation by the nurse practitioner. Time with Patient: Greater than 30
[2020-08-27] MEDS: DEXAMETHASONE SOD PHOSPHATE 10 MG/ML 1 ML VIAL IV SCH (11:07)
[2020-08-27] MEDS: ASCORBIC ACID 500 MG TAB PO SCH (11:08)
[2020-08-27] MEDS: DILTIAZEM CD 120 MG CAP.ER.24H PO SCH (11:08)
[2020-08-27] MEDS: TAMSULOSIN 0.4 MG CAP.ER.24H PO SCH (11:08)
[2020-08-27] MEDS: ZINC SULFATE 220 MG CAP PO SCH (14:59)
--- NOTE | 2020-08-27 19:24 | PN ---
PROGRESS NOTE DATE OF SERVICE: 08/27/2020 REASON FOR FOLLOWUP: COVID-19 infection. INTERVAL HISTORY: The patient is currently afebrile. The patient is more awake and alert. The patient denies having any chest pain or shortness of breath. Occasional no cough. No abdominal pain or diarrhea. PHYSICAL EXAMINATION: Blood pressure 132/71 with a pulse of 61, temperature 97.6. He is 95% on 2 L nasal cannula. General description is an elderly male lying in bed in no distress. RESPIRATORY SYSTEM: Unlabored breathing with decreased intensity of breath sounds. No wheeze. HEART: S1, S2. Regular rate and rhythm. ABDOMEN: Soft. No tenderness. LABS: CRP 43.7. Procalcitonin 0.10. D-dimer is 1.35. DIAGNOSTIC IMPRESSION AND PLAN: Patient with acute COVID-19 infection in this patient with overall clinical response to the dexamethasone, Coumadin, zinc; to continue along with respiratory support. No need for any systemic antibiotic. Monitor his clinical course closely. MMODL / IJN: [id number] /
[2020-08-27] MEDS: WARFARIN 5 MG TAB PO SCH (19:43)
[2020-08-27] MEDS: ATORVASTATIN 10 MG TAB PO SCH (19:43)
--- NOTE | 2020-08-27 22:09 | P.PN ---
Progress Note - Text Progress Note Date: 08/27/20 Chief Complaint: Increasing weakness History of presenting complaint: This is a 80-year-old patient of Dr. Lozoya. 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 Patient lives with his mentally challenged son. Daughter lives next door. Patient presented to the ER earlier today. Via EMS. Patient had been increasing weakness over last few days. Rather tired. Family checked him and this morning and noticed that he was becoming usual. It was so weak that when he tried to get out of bed he rolled out of his bed this morning. No injury. He normally uses a walker. Denies any chest pain. Some shortness of breath. Some cough. No fever no chills. No diarrhea. He did eat a Excedrins this morning. Blood pressure was in the lower side in the 90s systolics and pulse ox was 88% on room air. Patient did test positive for COVID. Patient did have a lung mass for which she had a PET scan that came back to be negative. Admitted with COVID 19 pneumonia and bacterial right lower lobe pneumonia. Started on ceftriaxone, Decadron, Lovenox. Also had metabolic encephalopathy on presentation. Today-feeling much better. Oral intake is improved. Slight cough. No shortness of breath. Reclining in bed Review of systems: Was done for constitutional, cardiovascular, GI, pulmonary. relevant finding as above Active Medications Acetaminophen (Acetaminophen Tab 325 Mg Tab) 650 mg PO Q6HR PRN PRN Reason: Mild Pain or Fever > 100.5 Ascorbic Acid (Ascorbic Acid 500 Mg Tab) 1,000 mg PO DAILY REPLACED BY [facility] Last Admin: 08/27/20 11:08 Dose: 1,000 mg Documented by: Atorvastatin Calcium (Atorvastatin 10 Mg Tab) 10 mg PO HS REPLACED BY [facility] Last Admin: 08/27/20 19:43 Dose: 10 mg Documented by: Budesonide/Formoterol Fumarate (Symbicort 160-4.5 Mcg Inhaler) 2 puff INHALATION RT-BID REPLACED BY [facility] Last Admin: 08/27/20 20:39 Dose: 2 puff Documented by: Dexamethasone Sodium Phosphate (Dexamethasone Sod Phosphate 10 Mg/Ml 1 Ml Vial) 6 mg IV DAILY REPLACED BY [facility] Last Admin: 08/27/20 11:07 Dose: 6 mg Documented by: Diltiazem HCl (Diltiazem Cd 120 Mg Cap.Er.24h) 120 mg PO DAILY REPLACED BY [facility] Last Admin: 08/27/20 11:08 Dose: 120 mg Documented by: Sodium Chloride (Saline 0.9%) 1,000 mls @ 75 mls/hr IV .[id number] REPLACED BY [facility] Last Admin: 08/27/20 18:14 Dose: 75 mls/hr Documented by: Ceftriaxone Sodium 1 gm/ (Sodium Chloride) 50 mls @ 100 mls/hr IVPB Q24HR REPLACED BY [facility] Last Admin: 08/27/20 11:08 Dose: 100 mls/hr Documented by: Miscellaneous Information (Warfarin Per Pharmacy) 1 each MISCELLANE DIRECTED PRN PRN Reason: Per Protocol Naloxone HCl (Naloxone 0.4 Mg/Ml 1 Ml Vial) 0.2 mg IV Q2M PRN PRN Reason: Opioid Reversal Ondansetron HCl (Ondansetron 4 Mg/2 Ml Vial) 4 mg IVP Q8HR PRN PRN Reason: Nausea And Vomiting Tamsulosin HCl (Tamsulosin 0.4 Mg Cap.Er.24h) 0.4 mg PO DAILY REPLACED BY [facility] Last Admin: 08/27/20 11:08 Dose: 0.4 mg Documented by: Warfarin Sodium (Warfarin 5 Mg Tab) 5 mg PO HS REPLACED BY [facility]; Protocol Last Admin: 08/27/20 19:43 Dose: 5 mg Documented by: Zinc Sulfate (Zinc Sulfate 220 Mg Cap) 220 mg PO DAILY REPLACED BY [facility] Last Admin: 08/27/20 14:59 Dose: 220 mg Documented by: Past medical history to include: Atrial fibrillation, COPD, hypertension, skin cancer involving the left cheek, resected, chronic back pain, chronic back pain with radiculopathy number stent involving the right upper extremity in the hands, varicose veins, hypertension, hyperlipidemia, left artery childhood injury with decreased vision, horseshoe kidney, colonic diverticulosis Social history: Lives at home with his mentally handicapped son. Son is highly functional Has home oxygen but does not wear it. Daughter lives next dose. Does not smoke. No alcohol. Physical examination: VITAL SIGNS: 97.6, 81, 18, 07[birth year]01[birth year]1973, 94% on 2 L GENERAL: Sitting up in bed, more awake looking better EYES: Pupils equal. Conjunctiva normal. HEENT: External appearance of nose and ears normal, oral cavity dry mucous membranes NECK: JVD not raised; masses not palpable. HEART: First and second heart sounds are normal; no edema. LUNGS: Respiratory rate increased; decreased breath sounds. ABDOMEN: Soft, nontender, no guarding rigidity liver spleen not palpable, no masses palpable. PSYCH: Answering questions INVESTIGATIONS, reviewed in the clinical context: August 27: INR 2.2 d-dimer 1.35 pro-calcitonin 0.1 WBC 5.4 hemoglobin 14.6 platelets 179 INR 2.3 potassium 4.4 creatinine 0.70 BNP 3160 albumin 3.2 UA showing positive for blood 60 RBC. Coronavirus [PCR]-detected EKG tracing personally reviewed by me-atrial flutter fibrillation with a rate of 93 Chest x-ray film personally reviewed by me-showing right-sided infiltrate. Questionable other infiltrates Assessment and plan: -Right lower lobe pneumonia. Suspect gram-negative organism. IV ceftriaxone. -COVID 19 pneumonia. On dexamethasone, patient already on Coumadin -Acute metabolic encephalopathy/delirium from infection. Slowly improving -Acute hypoxic respiratory failure from above. On 2 L of oxygen -Persistent atrial flutter fibrillation rate rate controlled. Telemetry. -Coumadin monitoring -COPD, bronchodilators -Essential hypertension, continue with Lopressor -Hyperlipidemia continue with Zocor -Horseshoe kidney -Chronic diverticulosis, asymptomatic -Multiple level thoracic vertebra compression fracture, chronic. Pain medications as needed -24 mm spiculated opacity, right bases right lower lobe: PET scan was negative Doing better.
[2020-08-28] MEDS: SYMBICORT 160-4.5 MCG INHALER INHALATION SCH ×2 (08:59→20:38)
[2020-08-28] MEDS: DILTIAZEM CD 120 MG CAP.ER.24H PO SCH (09:01)
[2020-08-28] MEDS: DEXAMETHASONE SOD PHOSPHATE 10 MG/ML 1 ML VIAL IV SCH (09:02)
[2020-08-28] MEDS: TAMSULOSIN 0.4 MG CAP.ER.24H PO SCH (09:02)
[2020-08-28] MEDS: ASCORBIC ACID 500 MG TAB PO SCH (09:02)
[2020-08-28] MEDS: ZINC SULFATE 220 MG CAP PO SCH (09:02)
[2020-08-28 12:21] LABS: INR 4.11 (0.90-1.11); Prothrombin Time 40.8 sec (9.9-11.9)
[2020-08-28 13:46] VITALS: BMI 21.1
[2020-08-28] MEDS: SODIUM CHLORIDE 0.9% 1,000 ML IV SCH (15:05)
--- NOTE | 2020-08-28 15:10 | P.PN ---
Subjective Progress Note Date: 08/28/20 Principal diagnosis: Weakness. COVID infection. 80-year-old white male patient with multiple medical problems including COPD with baseline FEV1 of 45% of predicted, chronic A. fib with history of ablation, and patient reverted back to A. fib, on Coumadin for anticoagulation, hy pertension, hyperlipidemia, former smoker, chronic back pain and chronic neck pain, who came into the emergency department on 08/26/2020 for evaluation of weakness over the past week. He is a poor historian, most history was extracted from the ED documentation, patient states she is not sure why he is in the hospital, he states he feels great. She does live by himself, family checks in on him, and this morning noticed that she was weaker than normal. He tried to get up out of his bed in the morning and rolled out of his bed. Did not hit his head, no pain or injury. Normally walks with a walker. He states he is chronically short of breath, however not any more than usual, he does have a mild cough which is not any worse than usual, no fever or chills, no abdominal pain, no nausea vomiting or diarrhea. Had a recent history of cholecystectomy in June 2020. The patient lives at home with his mentally handicapped son who is slightly functional, he is on home oxygen however he does not use it. His daughter lives next door. When patient was here in June with abdominal pain CT imaging revealed a right lower lobe 24 mm spiculated opacity and enlarged right hilar lymph nodes. Outpatient PET scan was completed on 08/14/2020 showing no suspicious hypermetabolic uptake in the area of concern in the posterior right lower lobe, and on follow-up the area was decreased in size raising possibility of resolving infectious or inflammatory process. Low-grade neoplasm was not entirely excluded although considered less likely, and follow- up CT or PET CT in 6-12 months was recommended. In view of increased confusion brain CT was completed showing degenerative and nonspecific white matter changes most typical of remote white matter ischemia but no acute hemorrhage or mass eff ect. Chest x-ray showed posterior right base infiltrate. And progressive compression deformity with severe loss of vertebral body in the thoracic region spine. Coronavirus PCR was completed and patient was positive for COVID 19. 2 L of oxygen pulse ox is 98%, patient is afebrile, blood pressures 114/71, he is in A. fib on the monitor, and the rate is controlled. Today's INR is 2.2, CBC was completely within normal limits, sodium was 136, BUN was 30, gustatory electrolytes and creatinine were within normal limits. Plasma lactic acid was 1.5. Urinalysis showed moderate amount of blood, but no definite urinary tract infection. Troponin was negative at 0.020, proBNP was 3160. CK was 368, CRP is 43.7. The patient denies any chest pain, denies any pleurisy, his cough is at baseline, no hemoptysis. He was started on vitamins including vitamin C, D and zinc, he was given 500 mL of 0.9 NS fluid bolus, and Rocephin. Pro-calcitonin level is pending Progress note dated 08/28/2020. This is an 80-year-old woman admitted with a diagnosis of acute COVID 19 infection, and possible COVID 19 pneumonia. Chest x-ray showed a right posterior lower lobe infiltrate. Currently, patient seems be doing relatively well. The patient had an outpatient PET scan in the area of the right lower l obe abnormality, which did not show suspicious uptake. Clinically, he feels well. He is a bit confused at times. He has a history of urinary tract infection, atrial fibrillation, and COPD, which is quite severe, with an FEV1 is 45% of predicted. PT today is 40.8 with an INR 4.11. D-dimer from yesterday is 1.35. No additional labs today. 2 L saturation is 94%. Blood pressure is stable. Objective - Vital Signs Vital signs: Vital Signs Temp 98.3 F 08/28/20 14:00 Pulse 94 08/28/20 14:00 Resp 18 08/28/20 14:00 BP 133/67 08/28/20 14:00 Pulse Ox 94 L 08/28/20 14:00 Intake & Output 08/27/20 08/28/20 08/28/20 18:59 06:59 18:59 Intake Total 650 Balance 650 Weight 72.575 kg 72.575 kg Intake: Oral 650 Other: Voiding Method Diaper Incontinent Incontinent # Voids 3 1 - Exam GENERAL EXAM: Alert, very pleasant, 80-year-old white male, 2 L of oxygen a pulse ox of 98% comfortable in no apparent distress. HEAD: Normocephalic/atraumatic. EYES: Normal reaction of pupils, equal size. Conjunctiva pink, sclera white. NOSE: Clear with pink turbinates. THROAT: No erythema or exudates. NECK: No masses, no JVD, no thyroid enlargement, no adenopathy. CHEST: No chest wall deformity. Symmetrical expansion. LUNGS: Equal air entry with no crackles, wheeze, rhonchi or dullness. CVS: Irregular rate and rhythm, normal S1 and S2, no gallops, no murmurs, no rubs. Heart rate 94 bpm. ABDOMEN: Soft, nontender. No hepatosplenomegaly, normal bowel sounds, no guarding or rigidity. EXTREMITIES: No clubbing, no edema, no cyanosis, 2+ pulses and upper and lower extremities. MUSCULOSKELETAL: Muscle strength and tone normal. SPINE: No scoliosis or deformity SKIN: No rashes CENTRAL NERVOUS SYSTEM: Alert and oriented -2. No focal deficits, tone is normal in all 4 extremities. PSYCHIATRIC: Alert and oriented -2. Appropriate affect. Intact judgment and insight. - Labs CBC & Chem 7: 08/26/20 10:41 08/26/20 10:41 Labs: Abnormal Lab Results - Last 24 Hours (Table) 08/28/20 Range/Units 07:46 PT 40.8 H (9.9-11.9) sec INR 4.11 H (0.90-1.11) Microbiology - Last 24 Hours (Table) 08/26/20 20:15 Blood Culture - Preliminary Blood No Growth after 24 hours 08/26/20 20:30 Blood Culture - Preliminary Blood No Growth after 24 hours Assessment and Plan Assessment: #1. Acute COVID 19 infection, and possibility of COVID 19 pneumonia, chest x-ra y shows right posterior lower lobe infiltrate, although this has been present on chest imaging since June 2020, and patient had outpatient PET scan in the area in the right lower lobe did not show suspicious uptake. #2. Confusion, rule out underlying dementia versus acute metabolic encephalopat hy, brain CT showed no acute intracranial abnormality. #3. Rule out possibility of urinary tract infection, patient is covered with Rocephin. #4. Chronic A. fib on Coumadin. #5. Recent history of acute cholecystitis status post robotically assisted cholecystectomy in June 2020. #6. Chronic COPD with FEV1 of 45% predicted, patient has home oxygen. #7. Back and neck pain, chronic, and chest x-ray showed progressive compression deformity with severe loss of vertebral body in the mid thoracic region. #8. History of skin cancer with resection. #9. Hypertension. #10. Hyperlipidemia. #11. Former smoker. #12. History of bladder and kidney stones. #13. History of diverticulosis. 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 Plan: Plan dated 08/28/2020. The patient's chest x-ray reveals what appears to be a minimal infiltrate, right lower lobe. Changes are not typical of COVID 19 pneumonia. The patient will continue on Coumadin, Decadron, vitamins, and supportive care with oxygen therapy. We will continue to follow. Patient is relatively stable and could be considered for discharge in the near future. No additional recommendations are made. Time with Patient: Less than 30
--- NOTE | 2020-08-28 17:09 | PN ---
PROGRESS NOTE DATE OF SERVICE: 08/28/2020 REASON FOR FOLLOWUP: COVID-19 infection. INTERVAL HISTORY: The patient is currently afebrile. The patient is breathing comfortably on 2 L nasal cannula. The patient denies having any chest pain. Has cough, but not bringing up any sputum. No abdominal pain or diarrhea. PHYSICAL EXAMINATION: Blood pressure 133/67, pulse of 94, temperature 98.3, 94% on 2 L nasal cannula. GENERAL DESCRIPTION: An elderly male lying in bed in no distress. RESPIRATORY SYSTEM: Unlabored breathing, decreased intensity of breath sounds, no wheeze. HEART: S1, S2. Regular rate and rhythm. ABDOMEN: Soft, no tenderness. LABS: 4.11. No other labs have been done today. IMPRESSION/PLAN: Patient with acute COVID-19 infection. The patient has shown overall clinical improvement on zinc, Coumadin, dexamethasone, vitamin C to continue. Clinical suspicion is low for secondary bacterial pneumonia and Rocephin discontinued. Continue supportive care. MMODL / IJN: [id number] /
[2020-08-28] MEDS: ATORVASTATIN 10 MG TAB PO SCH (20:20)
[2020-08-28] MEDS ORDERED: WARFARIN 0.5 MG TAB PO ONE (20:45)
--- NOTE | 2020-08-28 22:58 | CT ---
EXAMINATION TYPE: CT brain wo con DATE OF EXAM: 08/28/2020 COMPARISON: 08/26/2020 HISTORY: Fall. CT DLP: 1217.4 mGycm Automated exposure control for dose reduction was used. There is cerebral atrophy. There is patchy moderate hypodensity in the periventricular white matter. There is no mass effect nor midline shift. There is no sign of intracranial hemorrhage. Calvarium is intact. There is normal aeration of the mastoid sinuses. IMPRESSION: Cerebral atrophy. Chronic small vessel ischemia. No change compared to recent exam.
--- NOTE | 2020-08-28 23:10 | P.PN ---
Progress Note - Text Progress Note Date: 08/28/20 Chief Complaint: Increasing weakness History of presenting complaint: This is a 80-year-old patient of Dr. Lozoya. 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 Patient lives with his mentally challenged son. Daughter lives next door. Patient presented to the ER earlier today. Via EMS. Patient had been increasing weakness over last few days. Rather tired. Family checked him and this morning and noticed that he was becoming usual. It was so weak that when he tried to get out of bed he rolled out of his bed this morning. No injury. He normally uses a walker. Denies any chest pain. Some shortness of breath. Some cough. No fever no chills. No diarrhea. He did eat a Excedrins this morning. Blood pressure was in the lower side in the 90s systolics and pulse ox was 88% on room air. Patient did test positive for COVID. Patient did have a lung mass for which she had a PET scan that came back to be negative. Admitted with COVID 19 pneumonia and bacterial right lower lobe pneumonia. Started on ceftriaxone, Decadron, Lovenox. Also had metabolic encephalopathy on presentation. Today-doing much better. Oral intake improved. Encephalopathy resolved. Patient wanted to go home. Patient been going to inpatient rehab. Review of systems: Was done for constitutional, cardiovascular, GI, pulmonary. relevant finding as above Active Medications Acetaminophen (Acetaminophen Tab 325 Mg Tab) 650 mg PO Q6HR PRN PRN Reason: Mild Pain or Fever > 100.5 Ascorbic Acid (Ascorbic Acid 500 Mg Tab) 1,000 mg PO DAILY [facility] Last Admin: 08/28/20 09:02 Dose: 1,000 mg Documented by: Atorvastatin Calcium (Atorvastatin 10 Mg Tab) 10 mg PO HS [facility] Last Admin: 08/28/20 20:20 Dose: 10 mg Documented by: Budesonide/Formoterol Fumarate (Symbicort 160-4.5 Mcg Inhaler) 2 puff INHALATION RT-BID [facility] Last Admin: 08/28/20 20:38 Dose: 2 puff Documented by: Dexamethasone Sodium Phosphate (Dexamethasone Sod Phosphate 10 Mg/Ml 1 Ml Vial) 6 mg IV DAILY [facility] Last Admin: 08/28/20 09:02 Dose: 6 mg Documented by: Diltiazem HCl (Diltiazem Cd 120 Mg Cap.Er.24h) 120 mg PO DAILY [facility] Last Admin: 08/28/20 09:01 Dose: 120 mg Documented by: Sodium Chloride (Saline 0.9%) 1,000 mls @ 75 mls/hr IV .[id number] [facility] Last Admin: 08/28/20 15:05 Dose: Not Given Documented by: Miscellaneous Information (Warfarin Per Pharmacy) 1 each MISCELLANE DIRECTED PRN PRN Reason: Per Protocol Naloxone HCl (Naloxone 0.4 Mg/Ml 1 Ml Vial) 0.2 mg IV Q2M PRN PRN Reason: Opioid Reversal Ondansetron HCl (Ondansetron 4 Mg/2 Ml Vial) 4 mg IVP Q8HR PRN PRN Reason: Nausea And Vomiting Tamsulosin HCl (Tamsulosin 0.4 Mg Cap.Er.24h) 0.4 mg PO DAILY [facility] Last Admin: 08/28/20 09:02 Dose: 0.4 mg Documented by: Zinc Sulfate (Zinc Sulfate 220 Mg Cap) 220 mg PO DAILY [facility] Last Admin: 08/28/20 09:02 Dose: 220 mg Documented by: Past medical history to include: Atrial fibrillation, COPD, hypertension, skin cancer involving the left cheek, resected, chronic back pain, chronic back pain with radiculopathy number stent involving the right upper extremity in the hands, varicose veins, hypertension, hyperlipidemia, left artery childhood injury with decreased vision, horseshoe kidney, colonic diverticulosis Social history: Lives at home with his mentally handicapped son. Son is highly functional Has home oxygen but does not wear it. Daughter lives next dose. Does not smoke. No alcohol. Physical examination: VITAL SIGNS: 96.7, 81, 22, 140/77, 95% on 2 L GENERAL: Sitting up in bed, looking better EYES: Pupils equal. Conjunctiva normal. HEENT: External appearance of nose and ears normal, oral cavity dry mucous membranes NECK: JVD not raised; masses not palpable. HEART: First and second heart sounds are normal; no edema. LUNGS: Respiratory rate increased; decreased breath sounds. ABDOMEN: Soft, nontender, no guarding rigidity liver spleen not palpable, no masses palpable. PSYCH: Answering questions INVESTIGATIONS, reviewed in the clinical context: August 28: INR 4.1 August 27: INR 2.2 d-dimer 1.35 pro-calcitonin 0.1 WBC 5.4 hemoglobin 14.6 platelets 179 INR 2.3 potassium 4.4 creatinine 0.70 BNP 3160 albumin 3.2 UA showing positive for blood 60 RBC. Coronavirus [PCR]-detected EKG tracing personally reviewed by me-atrial flutter fibrillation with a rate of 93 Chest x-ray film personally reviewed by me-showing right-sided infiltrate. Questionable other infiltrates Assessment and plan: -Right lower lobe pneumonia. Suspect gram-negative organism. IV ceftriaxone. Improving -COVID 19 pneumonia. On dexamethasone, patient already on Coumadin -Acute metabolic encephalopathy/delirium from infection. Corrected -Acute hypoxic respiratory failure from above. On 2 L of oxygen -Persistent atrial flutter fibrillation rate rate controlled. Telemetry. -Coumadin monitoring -COPD, bronchodilators -Essential hypertension, continue with Lopressor -Hyperlipidemia continue with Zocor -Horseshoe kidney -Chronic diverticulosis, asymptomatic -Multiple level thoracic vertebra compression fracture, chronic. Pain medications as needed -24 mm spiculated opacity, right bases right lower lobe: PET scan was negative Looking for patient to go to inpatient rehab. Probably Sunday
[2020-08-29] MEDS: SODIUM CHLORIDE 0.9% 1,000 ML IV SCH ×2 (03:09→15:24)
[2020-08-29] MEDS: SYMBICORT 160-4.5 MCG INHALER INHALATION SCH ×2 (08:34→22:02)
[2020-08-29] MEDS: ASCORBIC ACID 500 MG TAB PO SCH (09:24)
[2020-08-29] MEDS: DEXAMETHASONE SOD PHOSPHATE 10 MG/ML 1 ML VIAL IV SCH (09:24)
[2020-08-29] MEDS: ZINC SULFATE 220 MG CAP PO SCH (09:24)
[2020-08-29] MEDS: DILTIAZEM CD 120 MG CAP.ER.24H PO SCH (09:25)
[2020-08-29] MEDS: TAMSULOSIN 0.4 MG CAP.ER.24H PO SCH (09:26)
[2020-08-29 09:30] LABS: INR 3.98 (0.90-1.11); Prothrombin Time 39.6 sec (9.9-11.9)
--- NOTE | 2020-08-29 10:42 | P.GSCN ---
History of Present Illness Consult date: 08/29/20 Reason for Consult: Fall with laceration History of present illness: 80-year-old male admitted with progressive fatigue. He was diagnosed with Covid pneumonia. Patient yesterday was confused and got out of bed and fell. Patient's INR was elevated over 4. He had bleeding from a small laceration above his left eye which stopped bleeding spontaneously with pressure. Patient had some bruising along his left arm. He was sent for stat CT brain which was clear. Doing well today. He is alert and oriented. Denies pain in the left arm, left chest, or head. Patient has chronic visual disturbances left eye Review of Systems The patient denies any acute changes in vision or hearing, no dysphagia or odynophagia, no chest pain or shortness of breath, no dysuria or hematuria, no headache, no runny nose, no rectal bleeding or melena, no unexplained weight loss Past Medical History Past Medical History: Atrial Fibrillation, Cancer, COPD, Hypertension Additional Past Medical History / Comment(s): COPD with an FEV1 of 45% of predicted, chronic atrial fibrillation, skin cancer involving the left cheek resected surgically, chronic back pain, chronic neck pain with radiculopathy and numbness and tingling involving the right upper extremity and the hand and the lower extremities, varicose veins bilaterally, hypertension, hyperlipidemia, history of childhood left eye injury with limited vision involving the left eye. 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 Past Anesthesia/Blood Transfusion Reactions: No Reported Reaction Past Psychological History: No Psychological Hx Reported Additional Psychological History / Comment(s): Pt resides in his home with his mentally challenged son. Pt is son's caregiver but son is highly functional. Pt drives. He has home oxygen but does not wear it. He has a nebulizer. He drives. His daughter lives next door and is very helpful. Smoking Status: Never smoker Past Alcohol Use History: None Reported Additional Past Alcohol Use History / Comment(s): Pt smoked off and on from 1976 until 1981 Past Drug Use History: None Reported - Past Family History Father Additional Family Medical History / Comment(s): Father was a drinker. He at the age of 80yrs. Mother Family Medical History: No Reported History Additional Family Medical History / Comment(s): Mother was healthy and lived to b90yrs old. Daughter(s) Family Medical History: Cancer Additional Family Medical History / Comment(s): Nely had breast cancer. Brother(s) Family Medical History: Cancer Additional Family Medical History / Comment(s): Brother had melanoma skin cancer. Sister(s) Family Medical History: Cancer Additional Family Medical History / Comment(s): Sister had melanoma skin cancer. Medications and Allergies Home Medications Medication Instructions Recorded Confirmed Type Diltiazem HCl [Diltiazem HCl 24Hr 120 mg PO DAILY 04/04/18 08/26/20 History ER (CD)] Fluticasone/Vilanterol [Breo 1 puff INHALATION RT-DAILY 04/04/18 08/26/20 History Ellipta 200-25 Mcg INH] [facility] Vitamin & Mineral 1 tab PO BID 12/29/19 08/26/20 History Simvastatin [Zocor] 20 mg PO HS 12/29/19 08/26/20 History Warfarin Sodium 5 mg PO HS 12/29/19 08/26/20 History Metoprolol Tartrate [Lopressor] 25 mg PO BID #60 tab 07/02/20 08/26/20 Rx Acetaminophen Tab [Tylenol] 650 mg PO Q6HR PRN tab 07/07/20 08/26/20 Rx Albuterol Inhaler [Ventolin Hfa 1 puff INHALATION RT-Q4H PRN 08/26/20 08/26/20 History Inhaler] Ipratropium-Albuterol Nebulize 3 ml INHALATION RT-TID 08/26/20 08/26/20 History [Duoneb 0.5 mg-3 mg/3 ml Soln] Tamsulosin [Flomax] 0.4 mg PO DAILY 08/26/20 08/26/20 History Ascorbic Acid [Vitamin C] 1,000 mg PO DAILY #30 tab 08/28/20 Rx Zinc Sulfate [Orazinc] 220 mg PO DAILY #30 cap 08/28/20 Rx dexAMETHasone [Hexadrol] 6 mg PO DAILY #7 tablet 08/28/20 Rx Allergies Allergy/AdvReac Type Severity Reaction Status Date / Time No Known Allergies Allergy Verified 08/26/20 12:24 Surgical - Exam Vital Signs Temp Pulse Resp BP Pulse Ox 98.2 F 88 18 92/54 88 L 08/26/20 10:05 08/26/20 10:05 08/26/20 10:05 08/26/20 10:05 08/26/20 10:05 Physical exam: General: Elderly somewhat malnourished appearing white male in no distress HEENT: Small amount of ecchymosis left periorbital region, 1 cm superficial laceration left forehead, sclerae nonicteric Abdomen: Nontender, nondistended Extremities: No edema, small amount of ecchymosis left shoulder region Neuro: Alert and oriented Results - Labs 08/26/20 10:41 08/26/20 10:41 Abnormal Lab Results - Last 24 Hours (Table) 08/28/20 08/29/20 Range/Units 07:46 06:30 PT 40.8 H 39.6 H (9.9-11.9) sec INR 4.11 H 3.98 H (0.90-1.11) Microbiology - Last 24 Hours (Table) 08/26/20 20:15 Blood Culture - Preliminary Blood No Growth after 48 hours 08/26/20 20:30 Blood Culture - Preliminary Blood No Growth after 48 hours Assessment and Plan (1) Fall from ground level Narrative/Plan: Patient doing well today after fall yesterday evening. Thankfully no further bleeding and no intracranial injuries noted. The superficial laceration appears to be healing nicely. No need for sutures. Will follow. Current Visit: Yes Status: Acute Code(s): W18.30XA - FALL ON SAME LEVEL, UNSPECIFIED, INITIAL ENCOUNTER SNOMED Code(s): 41998263
[2020-08-29] MEDS ORDERED: HALOPERIDOL LACTATE 5 MG/ML 1 ML VIAL IM PRN (10:55)
--- NOTE | 2020-08-29 14:26 | P.PN ---
Subjective Progress Note Date: 08/29/20 Principal diagnosis: Weakness. COVID infection. 80-year-old white male patient with multiple medical problems including COPD with baseline FEV1 of 45% of predicted, chronic A. fib with history of ablation, and patient reverted back to A. fib, on Coumadin for anticoagulation, hy pertension, hyperlipidemia, former smoker, chronic back pain and chronic neck pain, who came into the emergency department on 08/26/2020 for evaluation of weakness over the past week. He is a poor historian, most history was extracted from the ED documentation, patient states she is not sure why he is in the hospital, he states he feels great. She does live by himself, family checks in on him, and this morning noticed that she was weaker than normal. He tried to get up out of his bed in the morning and rolled out of his bed. Did not hit his head, no pain or injury. Normally walks with a walker. He states he is chronically short of breath, however not any more than usual, he does have a mild cough which is not any worse than usual, no fever or chills, no abdominal pain, no nausea vomiting or diarrhea. Had a recent history of cholecystectomy in June 2020. The patient lives at home with his mentally handicapped son who is slightly functional, he is on home oxygen however he does not use it. His daughter lives next door. When patient was here in June with abdominal pain CT imaging revealed a right lower lobe 24 mm spiculated opacity and enlarged right hilar lymph nodes. Outpatient PET scan was completed on 08/14/2020 showing no suspicious hypermetabolic uptake in the area of concern in the posterior right lower lobe, and on follow-up the area was decreased in size raising possibility of resolving infectious or inflammatory process. Low-grade neoplasm was not entirely excluded although considered less likely, and follow- up CT or PET CT in 6-12 months was recommended. In view of increased confusion brain CT was completed showing degenerative and nonspecific white matter changes most typical of remote white matter ischemia but no acute hemorrhage or mass eff ect. Chest x-ray showed posterior right base infiltrate. And progressive compression deformity with severe loss of vertebral body in the thoracic region spine. Coronavirus PCR was completed and patient was positive for COVID 19. 2 L of oxygen pulse ox is 98%, patient is afebrile, blood pressures 114/71, he is in A. fib on the monitor, and the rate is controlled. Today's INR is 2.2, CBC was completely within normal limits, sodium was 136, BUN was 30, gustatory electrolytes and creatinine were within normal limits. Plasma lactic acid was 1.5. Urinalysis showed moderate amount of blood, but no definite urinary tract infection. Troponin was negative at 0.020, proBNP was 3160. CK was 368, CRP is 43.7. The patient denies any chest pain, denies any pleurisy, his cough is at baseline, no hemoptysis. He was started on vitamins including vitamin C, D and zinc, he was given 500 mL of 0.9 NS fluid bolus, and Rocephin. Pro-calcitonin level is pending Progress note dated 08/28/2020. This is an 80-year-old woman admitted with a diagnosis of acute COVID 19 infection, and possible COVID 19 pneumonia. Chest x-ray showed a right posterior lower lobe infiltrate. Currently, patient seems be doing relatively well. The patient had an outpatient PET scan in the area of the right lower l obe abnormality, which did not show suspicious uptake. Clinically, he feels well. He is a bit confused at times. He has a history of urinary tract infection, atrial fibrillation, and COPD, which is quite severe, with an FEV1 is 45% of predicted. PT today is 40.8 with an INR 4.11. D-dimer from yesterday is 1.35. No additional labs today. 2 L saturation is 94%. Blood pressure is stable. Progress note dated 08/29/2020. This is an 80-year-old male admitted with a diagnosis of acute COVID 19 infection and possible COVID 19 pneumonia. Chest x-ray showed a right posterior lower lobe infiltrate. Currently, the patient's on O2 at 3 L with a saturation of 92%. He is afebrile, the pressure is stable. Clinically, he feels well but today he was a bit rambunctious, and also was agitated, and was not able to give a good story or history. He does have quite severe COPD, with an FEV1 that is 45% of predicted. He also has a history of urinary tract infection, and atrial fibrillation. The patient did have a recent outpatient PET scan in the area of the right lower lobe abnormality, which did not show suspicious uptake. Today's PTT was 39.6 with an INR 3.98. No additional labs were noted. Objective - Vital Signs Vital signs: Vital Signs Temp 97.6 F 08/29/20 13:49 Pulse 76 08/29/20 13:49 Resp 18 08/29/20 13:49 BP 138/64 08/29/20 13:49 Pulse Ox 92 L 08/29/20 13:49 Intake & Output 08/28/20 08/29/20 08/29/20 18:59 06:59 18:59 Intake Total 950 400 Balance 950 400 Weight 72.575 kg Intake: Oral 950 400 Other: Voiding Method Incontinent Urinal Diaper Diaper Incontinent # Voids 1 2 3 - Exam Agitated and confused. Refusing to wear his oxygen therapy. Should be on 3 L nasal cannula. No acute respiratory distress. HEENT examination is grossly unremarkable. Mucous membranes are moist. Neck supple. Full range of motion. No adenopathy thyromegaly or neck vein distention. Cardiovascular examination reveals regular rhythm rate. S1-S2 normal. No S3 or S4. No discernible murmur noted. Heart rate 76 bpm. Heart sounds are distant. Lungs reveal diffuse bilateral rhonchi. A few scattered crackles. Breath sounds equal bilaterally. Abdomen soft bowel sounds are heard. No masses or tenderness. Extremities are intact. No cyanosis clubbing or edema. Skin is without rash or lesion. Neurologic examination is difficult to assess. He's quite agitated refusing to wear his oxygen. He is given the nurses a very hard time. - Labs CBC & Chem 7: 08/26/20 10:41 08/26/20 10:41 Labs: Abnormal Lab Results - Last 24 Hours (Table) 08/29/20 Range/Units 06:30 PT 39.6 H (9.9-11.9) sec INR 3.98 H (0.90-1.11) Microbiology - Last 24 Hours (Table) 08/26/20 20:15 Blood Culture - Preliminary Blood No Growth after 48 hours 08/26/20 20:30 Blood Culture - Preliminary Blood No Growth after 48 hours Assessment and Plan Assessment: #1. Acute COVID 19 infection, and possibility of COVID 19 pneumonia, chest x- ray shows right posterior lower lobe infiltrate, although this has been present on chest imaging since June 2020, and patient had outpatient PET scan in the area in the right lower lobe did not show suspicious uptake. #2. Confusion, rule out underlying dementia versus acute metabolic encephalopathy, brain CT showed no acute intracranial abnormality. #3. Rule out possibility of urinary tract infection, patient is covered with Rocephin. #4. Chronic A. fib on Coumadin. #5. Recent history of acute cholecystitis status post robotically assisted cholecystectomy in June 2020. #6. Chronic COPD with FEV1 of 45% predicted, patient has home oxygen. #7. Back and neck pain, chronic, and chest x-ray showed progressive compression deformity with severe loss of vertebral body in the mid thoracic region. #8. History of skin cancer with resection. #9. Hypertension. #10. Hyperlipidemia. #11. Former smoker. #12. History of bladder and kidney stones. #13. History of diverticulosis. 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 Plan: Plan dated 08/29/2020. The patient's chest x-ray reveals what appears to be a minimal infiltrate, right lower lobe. Changes are not typical of COVID 19 pneumonia. The patient will continue on Coumadin, Decadron, vitamins, and supportive care with oxygen therapy. We will continue to follow. The patient is very agitated today. He is refusing to wear his oxygen, and given the nurses a hard time. Without oxygen, saturations are in the mid 80s. Labs are reviewed. CT of the brain showed only cerebral atrophy and chronic small vessel ischemia. There is no change from the prior CT, and there is nothing acute on the computed tomography scan of the brain. His confusion, may relate to her hypoxemia more than anything else. Time with Patient: Less than 30
[2020-08-29] MEDS ORDERED: WARFARIN 0.5 MG TAB PO ONE (18:00)
[2020-08-29] MEDS: ATORVASTATIN 10 MG TAB PO SCH (20:56)
--- NOTE | 2020-08-29 21:59 | P.PN ---
Progress Note - Text Progress Note Date: 08/29/20 Chief Complaint: Increasing weakness History of presenting complaint: This is a 80-year-old patient of Dr. Lozoya. 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 Patient lives with his mentally challenged son. Daughter lives next door. Patient presented to the ER earlier today. Via EMS. Patient had been increasing weakness over last few days. Rather tired. Family checked him and this morning and noticed that he was becoming usual. It was so weak that when he tried to get out of bed he rolled out of his bed this morning. No injury. He normally uses a walker. Denies any chest pain. Some shortness of breath. Some cough. No fever no chills. No diarrhea. He did eat a Excedrins this morning. Blood pressure was in the lower side in the 90s systolics and pulse ox was 88% on room air. Patient did test positive for COVID. Patient did have a lung mass for which she had a PET scan that came back to be negative. Admitted with COVID 19 pneumonia and bacterial right lower lobe pneumonia. Started on ceftriaxone, Decadron, Lovenox. Also had metabolic encephalopathy on presentation. Responded well. Did improve. Looking at inpatient rehab. Patient had taken a fall. CAT scan of the skull was negative for any fracture. Patient had some bruising on the left side., Seen by trauma team. Today-oral intake fairly good. Laying in bed. Breathing stable. Review of systems: Was done for constitutional, cardiovascular, GI, pulmonary. relevant finding as above Active Medications Acetaminophen (Acetaminophen Tab 325 Mg Tab) 650 mg PO Q6HR PRN PRN Reason: Mild Pain or Fever > 100.5 Ascorbic Acid (Ascorbic Acid 500 Mg Tab) 1,000 mg PO DAILY [facility] Last Admin: 08/29/20 09:24 Dose: 1,000 mg Documented by: Atorvastatin Calcium (Atorvastatin 10 Mg Tab) 10 mg PO HS [facility] Last Admin: 08/29/20 20:56 Dose: 10 mg Documented by: Budesonide/Formoterol Fumarate (Symbicort 160-4.5 Mcg Inhaler) 2 puff INHALATION RT-BID [facility] Last Admin: 08/29/20 08:34 Dose: 2 puff Documented by: Dexamethasone Sodium Phosphate (Dexamethasone Sod Phosphate 10 Mg/Ml 1 Ml Vial) 6 mg IV DAILY [facility] Last Admin: 08/29/20 09:24 Dose: 6 mg Documented by: Diltiazem HCl (Diltiazem Cd 120 Mg Cap.Er.24h) 120 mg PO DAILY [facility] Last Admin: 08/29/20 09:25 Dose: 120 mg Documented by: Haloperidol Lactate (Haloperidol Lactate 5 Mg/Ml 1 Ml Vial) 4 mg IM Q8HR PRN PRN Reason: Agitation or Acute Psychosis Last Admin: 08/29/20 11:07 Dose: 4 mg Documented by: Miscellaneous Information (Warfarin Per Pharmacy) 1 each MISCELLANE DIRECTED PRN PRN Reason: Per Protocol Naloxone HCl (Naloxone 0.4 Mg/Ml 1 Ml Vial) 0.2 mg IV Q2M PRN PRN Reason: Opioid Reversal Ondansetron HCl (Ondansetron 4 Mg/2 Ml Vial) 4 mg IVP Q8HR PRN PRN Reason: Nausea And Vomiting Tamsulosin HCl (Tamsulosin 0.4 Mg Cap.Er.24h) 0.4 mg PO DAILY [facility] Last Admin: 08/29/20 09:26 Dose: 0.4 mg Documented by: Zinc Sulfate (Zinc Sulfate 220 Mg Cap) 220 mg PO DAILY [facility] Last Admin: 08/29/20 09:24 Dose: 220 mg Documented by: Past medical history to include: Atrial fibrillation, COPD, hypertension, skin cancer involving the left cheek, resected, chronic back pain, chronic back pain with radiculopathy number stent involving the right upper extremity in the hands, varicose veins, hypertension, hyperlipidemia, left artery childhood injury with decreased vision, horseshoe kidney, colonic diverticulosis Social history: Lives at home with his mentally handicapped son. Son is highly functional Has home oxygen but does not wear it. Daughter lives next dose. Does not smoke. No alcohol. Physical examination: VITAL SIGNS: 97.6, 76, 18, 138/64, 92% on 3 L GENERAL: Laying in bed, comfortable. Some bruising on the face and left arm. EYES: Pupils equal. Conjunctiva normal. HEENT: External appearance of nose and ears normal, oral cavity dry mucous membranes NECK: JVD not raised; masses not palpable. HEART: First and second heart sounds are normal; no edema. LUNGS: Respiratory rate increased; decreased breath sounds. ABDOMEN: Soft, nontender, no guarding rigidity liver spleen not palpable, no masses palpable. PSYCH: Answering questions INVESTIGATIONS, reviewed in the clinical context: August 29: INR 3.98 August 28: INR 4.1 August 27: INR 2.2 d-dimer 1.35 pro-calcitonin 0.1 WBC 5.4 hemoglobin 14.6 platelets 179 INR 2.3 potassium 4.4 creatinine 0.70 BNP 3160 albumin 3.2 UA showing positive for blood 60 RBC. Coronavirus [PCR]-detected EKG tracing personally reviewed by me-atrial flutter fibrillation with a rate of 93 Chest x-ray film personally reviewed by me-showing right-sided infiltrate. Questionable other infiltrates Assessment and plan: -COVID 19 pneumonia. On dexamethasone, patient already on Coumadin -Acute metabolic encephalopathy/delirium from infection. Corrected -Acute hypoxic respiratory failure from above. On 2 L of oxygen -Persistent atrial flutter fibrillation rate rate controlled. Telemetry. -Coumadin monitoring -COPD, bronchodilators -Essential hypertension, continue with Lopressor -Hyperlipidemia continue with Zocor -Horseshoe kidney -Chronic diverticulosis, asymptomatic -Multiple level thoracic vertebra compression fracture, chronic. Pain medications as needed -24 mm spiculated opacity, right bases right lower lobe: PET scan was negative -Pneumonia suspicion felt to be low per ID. IV ceftriaxone discontinued. -Acute on chronic medical debility. Looking for inpatient placement Care was discussed with the patient.
--- NOTE | 2020-08-29 23:44 | PN ---
PROGRESS NOTE DATE OF SERVICE: 08/29/2020 REASON FOR FOLLOWUP: COVID-19 infection. INTERVAL HISTORY: The patient is currently afebrile. The patient is breathing comfortably. Patient denies having any chest pain or shortness of breath or cough. No abdominal pain or diarrhea. PHYSICAL EXAMINATION: Blood pressure 127/71 with a pulse of 82, temperature 97.7. He is 96% on 3 L nasal cannula. General description is an elderly male lying in bed in no distress. Respiratory system: Unlabored breathing, decreased breath sounds in the base, with no wheeze. Heart S1, S2. Regular rate and rhythm. ABDOMEN: Soft, no tenderness. LABS: INR is 3.98. DIAGNOSTIC IMPRESSION AND PLAN: Patient with acute COVID-19 infection in this patient overall clinical response currently on dexamethasone, Coumadin and ascorbic acid along with respiratory support and monitor clinical course closely. MMODL / IJN: [id number] /
[2020-08-30 07:50] LABS: Basophils % (A) 0 %; Eosinophils % (A) 0 %; HCT 41.8 % (39.0-53.0); Lymphocytes # (A) 0.5 k/uL (1.0-4.8); Lymphocytes % (A) 4 %; MCH 28.8 pg (25.0-35.0); MCHC 33.6 g/dL (31.0-37.0); MCV 85.8 fL (80.0-100.0); Mean Platelet Volume 8.2; Monocytes # (A) 0.5 k/uL (0-1.0); Monocytes % (A) 4 %; Neutrophils # (A) 9.2 k/uL (1.3-7.7); Neutrophils % (A) 90 %; Platelet Count 293 k/uL (150-450); RBC 4.88 m/uL (4.30-5.90); RDW 13.8 % (11.5-15.5); WBC 10.3 k/uL (3.8-10.6)
[2020-08-30] MEDS: ASCORBIC ACID 500 MG TAB PO SCH (07:51)
[2020-08-30] MEDS: TAMSULOSIN 0.4 MG CAP.ER.24H PO SCH (07:51)
[2020-08-30] MEDS: DILTIAZEM CD 120 MG CAP.ER.24H PO SCH (07:51)
[2020-08-30] MEDS: ZINC SULFATE 220 MG CAP PO SCH (07:52)
[2020-08-30] MEDS: DEXAMETHASONE SOD PHOSPHATE 10 MG/ML 1 ML VIAL IV SCH ×2 (07:52→07:55)
[2020-08-30 08:07] LABS: D-Dimer 1.3 mg/L FEU (<0.60); INR 2.6 (<1.2); Prothrombin Time 25.5 sec (9.0-12.0)
[2020-08-30] MEDS: SYMBICORT 160-4.5 MCG INHALER INHALATION SCH (08:31)
--- NOTE | 2020-08-30 11:02 | P.PN ---
<Beatriz Hines - Last Filed: 08/30/20 10:57> Subjective Progress Note Date: 08/30/20 CHIEF COMPLAINT: Fall with laceration HISTORY OF PRESENT ILLNESS: Patient is being followed for the small laceration above the left eye. This is scabbed over. No further bleeding from the area. Computed tomography scan negative for intracranial bleeding. Patient is Covid positive. Patient lying in bed comfortably. Tolerating regular diet. No new complaints. Afebrile WBC 10.3 INR 2.6 room air 91% PHYSICAL EXAM: VITAL SIGNS: Reviewed. GENERAL: Well-developed in no acute distress. HEENT: Small amount of ecchymosis left periorbital region, 1 cm laceration left forehead that is crusted. No active bleeding. ABDOMEN: Soft. Nondistended. Nontender. NEUROLOGIC: Alert and oriented. Cranial nerves II through XII grossly intact. ASSESSMENT: 1. Fall from ground-level with small laceration above the left eye PLAN: -No need for sutures -Continue supportive care -Surgical service will sign off Physician Marketing Pr Intern note has been reviewed by physician. Signing provider agrees with the documented findings, assessment, and plan of care. Objective - Vital Signs Vital signs: Vital Signs Temp 97.7 F 08/30/20 09:56 Pulse 93 08/30/20 09:56 Resp 20 08/30/20 09:56 BP 111/71 08/30/20 09:56 Pulse Ox 90 L 08/30/20 09:56 Intake & Output 08/29/20 08/30/20 08/30/20 18:59 06:59 18:59 Intake Total 400 Balance 400 Intake: Oral 400 Other: Voiding Method Diaper Diaper Diaper Incontinent Incontinent Incontinent # Voids 2 3 - Labs CBC & Chem 7: 08/30/20 06:50 08/26/20 10:41 Labs: Abnormal Lab Results - Last 24 Hours (Table) 08/30/20 08/30/20 08/30/20 Range/Units 06:50 06:50 06:50 Neutrophils # 9.2 H (1.3-7.7) k/uL Lymphocytes # 0.5 L (1.0-4.8) k/uL PT 25.5 H (9.0-12.0) sec INR 2.6 H (<1.2) D-Dimer 1.30 H (<0.60) mg/L FEU C-Reactive Protein 22.9 H (<10.0) mg/L Microbiology - Last 24 Hours (Table) 08/26/20 20:30 Blood Culture - Preliminary Blood No Growth after 72 hours 08/26/20 20:15 Blood Culture - Preliminary Blood No Growth after 72 hours <Graham Pollack - Last Filed: 08/30/20 14:48> Subjective As above. Patient doing well. We'll sign off. Objective - Vital Signs Vital signs: Vital Signs Temp 98.3 F 08/30/20 14:00 Pulse 95 08/30/20 14:00 Resp 18 08/30/20 14:00 BP 107/65 08/30/20 14:00 Pulse Ox 91 L 08/30/20 14:00 Intake & Output 08/29/20 08/30/20 08/30/20 18:59 06:59 18:59 Intake Total 400 Balance 400 Intake: Oral 400 Other: Voiding Method Diaper Diaper Diaper Incontinent Incontinent Incontinent # Voids 2 3 - Labs CBC & Chem 7: 08/30/20 06:50 08/26/20 10:41 Labs: Abnormal Lab Results - Last 24 Hours (Table) 08/30/20 08/30/20 08/30/20 Range/Units 06:50 06:50 06:50 Neutrophils # 9.2 H (1.3-7.7) k/uL Lymphocytes # 0.5 L (1.0-4.8) k/uL PT 25.5 H (9.0-12.0) sec INR 2.6 H (<1.2) D-Dimer 1.30 H (<0.60) mg/L FEU C-Reactive Protein 22.9 H (<10.0) mg/L Microbiology - Last 24 Hours (Table) 08/26/20 20:30 Blood Culture - Preliminary Blood No Growth after 72 hours 08/26/20 20:15 Blood Culture - Preliminary Blood No Growth after 72 hours Assessment and Plan (1) Fall from ground level Current Visit: Yes Status: Acute Code(s): W18.30XA - FALL ON SAME LEVEL, UNSPECIFIED, INITIAL ENCOUNTER SNOMED Code(s): 48931471
--- NOTE | 2020-08-30 13:39 | P.DS ---
Providers Date of admission: 08/26/20 13:21 Expected date of discharge: 08/30/20 Attending physician: Dwayne Solomon Consults: 08/26/20 12:55 Consult Physician Urgent Consulting Provider: Surinder Gaston Consult Reason/Comments: Hypoxia, covid Positive Do you want consulting provider notified?: Yes 08/26/20 12:56 Consult Physician Urgent Consulting Provider: Latrice Reich Consult Reason/Comments: covid positive, weakness Do you want consulting provider notified?: Yes 08/28/20 22:16 Consult Physician Stat Consulting Provider: Graham Pollack Consult Reason/Comments: fall Do you want consulting provider notified?: Yes Primary care physician: [facility] Course: Chief Complaint: Increasing weakness History of presenting complaint: This is a 80-year-old patient of Dr. Lozoya. 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 Patient lives with his mentally challenged son. Daughter lives next door. Patient presented to the ER earlier today. Via EMS. Patient had been increasing weakness over last few days. Rather tired. Family checked him and this morning and noticed that he was becoming usual. It was so weak that when he tried to get out of bed he rolled out of his bed this morning. No injury. He normally uses a walker. Denies any chest pain. Some shortness of breath. Some cough. No fever no chills. No diarrhea. He did eat a Excedrins this morning. Blood pressure was in the lower side in the 90s systolics and pulse ox was 88% on room air. Patient did test positive for COVID. Patient did have a lung mass for which she had a PET scan that came back to be negative. Admitted with COVID 19 pneumonia and bacterial right lower lobe pneumonia. Started on ceftriaxone, Decadron, Lovenox. Also had metabolic encephalopathy on presentation. Responded well. Did improve. Looking at inpatient rehab. P atient had taken a fall. CAT scan of the skull was negative for any fracture. Patient had some /bruising/small laceration above the left eye ., Seen by trauma team. Today-oral intake fairly good. Laying in bed. Comfortable Consultation: Dr. Reich from ID Dr. Gaston from pulmonary Dr. Zhao from general surgery Past medical history to include: Atrial fibrillation, COPD, hypertension, skin cancer involving the left cheek, resected, chronic back pain, chronic back pain with radiculopathy number stent involving the right upper extremity in the hands, varicose veins, hypertension, hyperlipidemia, left artery childhood injury with decreased vision, horseshoe kidney, colonic diverticulosis Social history: Lives at home with his mentally handicapped son. Son is highly functional Has home oxygen but does not wear it. Daughter lives next dose. Does not smoke. No alcohol. Physical examination: VITAL SIGNS: 97.7, 93, 20, 111/71, 90% on room air GENERAL: Laying in bed, comfortable. Small laceration above the left eye EYES: Pupils equal. Conjunctiva normal. HEENT: External appearance of nose and ears normal, oral cavity dry mucous membranes NECK: JVD not raised; masses not palpable. HEART: First and second heart sounds are normal; no edema. LUNGS: Respiratory rate increased; decreased breath sounds. ABDOMEN: Soft, nontender, no guarding rigidity liver spleen not palpable, no masses palpable. PSYCH: Answering questions INVESTIGATIONS, reviewed in the clinical context: August 30: INR 2.6 August 27: INR 2.2 d-dimer 1.35 pro-calcitonin 0.1 WBC 5.4 hemoglobin 14.6 platelets 179 INR 2.3 potassium 4.4 creatinine 0.70 BNP 3160 albumin 3.2 UA showing positive for blood 60 RBC. Coronavirus [PCR]-detected EKG tracing personally reviewed by me-atrial flutter fibrillation with a rate of 93 Chest x-ray film personally reviewed by me-showing right-sided infiltrate. Questionable other infiltrates Assessment and plan: -COVID 19 pneumonia. On dexamethasone, patient already on Coumadin -Acute metabolic encephalopathy/delirium from infection. Corrected -Acute hypoxic respiratory failure from above. On 2 L of oxygen -Persistent atrial flutter fibrillation rate rate controlled. Telemetry. -Coumadin monitoring -COPD, bronchodilators -Essential hypertension, continue with Lopressor -Hyperlipidemia continue with Zocor -Horseshoe kidney -Chronic diverticulosis, asymptomatic -Multiple level thoracic vertebra compression fracture, chronic. Pain medications as needed -24 mm spiculated opacity, right bases right lower lobe: PET scan was negative -Pneumonia suspicion felt to be low per ID. IV ceftriaxone discontinued. -Acute on chronic medical debility. 4 [facility] rehab Disposition: [facility] CBC, BMP, INR-3 days Patient Condition at Discharge: Stable Plan - Discharge Summary New Discharge Prescriptions: New dexAMETHasone [Hexadrol] 6 mg PO DAILY #7 tablet Zinc Sulfate [Orazinc] 220 mg PO DAILY #30 cap Ascorbic Acid [Vitamin C] 1,000 mg PO DAILY #30 tab Continue Fluticasone/Vilanterol [Breo Ellipta 200-25 Mcg INH] 1 puff INHALATION RT- DAILY Diltiazem HCl [Diltiazem HCl 24Hr ER (CD)] 120 mg PO DAILY [facility] 1 tab PO BID Simvastatin [Zocor] 20 mg PO HS Metoprolol Tartrate [Lopressor] 25 mg PO BID #60 tab Acetaminophen Tab [Tylenol] 650 mg PO Q6HR PRN tab PRN Reason: Mild Pain Or Fever >= 100.5 Albuterol Inhaler [Ventolin Hfa Inhaler] 1 puff INHALATION RT-Q4H PRN PRN Reason: Shortness Of Breath Ipratropium-Albuterol Nebulize [Duoneb 0.5 mg-3 mg/3 ml Soln] 3 ml INHALATION RT-TID Tamsulosin [Flomax] 0.4 mg PO DAILY Changed Warfarin Sodium 2.5 mg PO HS #0 Discontinued lisinopriL [Zestril] 10 mg PO BID Discharge Medication List Diltiazem HCl [Diltiazem HCl 24Hr ER (CD)] 120 mg PO DAILY 04/04/18 [History] Fluticasone/Vilanterol [Breo Ellipta 200-25 Mcg INH] 1 puff INHALATION RT-DAILY 04/04/18 [History] [facility] Vitamin [facility] Mineral 1 tab PO BID 12/29/19 [History] Simvastatin [Zocor] 20 mg PO HS 12/29/19 [History] Metoprolol Tartrate [Lopressor] 25 mg PO BID #60 tab 07/02/20 [Rx] Acetaminophen Tab [Tylenol] 650 mg PO Q6HR PRN tab 07/07/20 [Rx] Albuterol Inhaler [Ventolin Hfa Inhaler] 1 puff INHALATION RT-Q4H PRN 08/26/20 [History] Ipratropium-Albuterol Nebulize [Duoneb 0.5 mg-3 mg/3 ml Soln] 3 ml INHALATION RT-TID 08/26/20 [History] Tamsulosin [Flomax] 0.4 mg PO DAILY 08/26/20 [History] Ascorbic Acid [Vitamin C] 1,000 mg PO DAILY #30 tab 08/28/20 [Rx] Zinc Sulfate [Orazinc] 220 mg PO DAILY #30 cap 08/28/20 [Rx] dexAMETHasone [Hexadrol] 6 mg PO DAILY #7 tablet 08/28/20 [Rx] Warfarin Sodium 2.5 mg PO HS #0 08/30/20 [Rx] Follow up Appointment(s)/Referral(s): Enrique Lozoya MD [Primary Care Provider] - 1-2 days Activity/Diet/Wound Care/Special Instructions: cbc/bmp/inr - 3 days
--- NOTE | 2020-08-30 13:46 | PN ---
PROGRESS NOTE DATE OF SERVICE: 08/30/2020 REASON FOR FOLLOWUP: COVID-19 pneumonia. INTERVAL HISTORY: The patient is currently afebrile. Patient is slightly sleepy, lethargic and was unable to provide any history. Currently on room air. No vomiting, diarrhea or any other changes reported by the nursing staff. PHYSICAL EXAMINATION: Blood pressure 111/71 with a pulse of 93, temperature is 97.7. He is 90% on room air. General description is an elderly male lying in bed in no distress. RESPIRATORY SYSTEM: Unlabored breathing, decreased intensity of breath sounds. No wheeze. HEART: S1, S2. Regular rate and rhythm. ABDOMEN: Soft, no tenderness. LABS: Hemoglobin is 14, white count 10.3. DIAGNOSTIC IMPRESSION AND PLAN: Patient with acute COVID-19 infection. The patient has seen overall improvement. Currently on dexamethasone, Coumadin, zinc and ascorbic acid to continue and monitor his clinical course closely. Continue with supportive care. MMODL / IJN: [id number] /
[2020-08-30 14:10] VITALS: BP 107/65; PULSE 95; RESP 18; TEMP 98.3
--- NOTE | 2020-08-30 14:19 | P.PN ---
Subjective Progress Note Date: 08/30/20 80-year-old white male patient with multiple medical problems including COPD with baseline FEV1 of 45% of predicted, chronic A. fib with history of ablation, and patient reverted back to A. fib, on Coumadin for anticoagulation, hypertension, hyperlipidemia, former smoker, chronic back pain and chronic neck pain, who came into the emergency department on 08/26/2020 for evaluation of weakness over the past week. He is a poor historian, most history was extracted from the ED documentation, patient states she is not sure why he is in the hospital, he states he feels great. She does live by himself, family checks in on him, and this morning noticed that she was weaker than normal. He tried to get up out of his bed in the morning and rolled out of his bed. Did not hit his head, no pain or injury. Normally walks with a walker. He states he is chronically short of breath, however not any more than usual, he does have a mild cough which is not any worse than usual, no fever or chills, no abdominal pain, no nausea vomiting or diarrhea. Had a recent history of cholecystectomy in June 2020. The patient lives at home with his mentally handicapped son who is slightly functional, he is on home oxygen however he does not use it. His daughter lives next door. When patient was here in June with abdominal pain CT imaging revealed a right lower lobe 24 mm spiculated opacity and enlarged right hilar lymph nodes. Outpatient PET scan was completed on 08/14/2020 showing no suspicious hypermetabolic uptake in the area of concern in the posterior right lower lobe, and on follow-up the area was decreased in size raising possibility of resolving infectious or inflammatory process. Low-grade neoplasm was not entirely excluded although considered less likely, and follow- up CT or PET CT in 6-12 months was recommended. In view of increased confusion brain CT was completed showing degenerative and nonspecific white matter changes most typical of remote white matter ischemia but no acute hemorrhage or mass effect. Chest x-ray showed posterior right base infiltrate. And progressive compression deformity with severe loss of vertebral body in the thoracic region spine. Coronavirus PCR was completed and patient was positive for COVID 19. 2 L of oxygen pulse ox is 98%, patient is afebrile, blood pressures 114/71, he is in A. fib on the monitor, and the rate is controlled. Today's INR is 2.2, CBC was completely within normal limits, sodium was 136, BUN was 30, gustatory electrolytes and creatinine were within normal limits. Plasma lactic acid was 1.5. Urinalysis showed moderate amount of blood, but no definite urinary tract infection. Troponin was negative at 0.020, proBNP was 3160. CK was 368, CRP is 43.7. The patient denies any chest pain, denies any pleurisy, his cough is at baseline, no hemoptysis. He was started on vitamins including vitamin C, D and zinc, he was given 500 mL of 0.9 NS fluid bolus, and Rocephin. Pro-calcitonin level is pending Progress note dated 08/28/2020. This is an 80-year-old woman admitted with a diagnosis of acute COVID 19 infe ction, and possible COVID 19 pneumonia. Chest x-ray showed a right posterior lower lobe infiltrate. Currently, patient seems be doing relatively well. The patient had an outpatient PET scan in the area of the right lower lobe abnormality, which did not show suspicious uptake. Clinically, he feels well. He is a bit confused at times. He has a history of urinary tract infection, atrial fibrillation, and COPD, which is quite severe, with an FEV1 is 45% of predicted. PT today is 40.8 with an INR 4.11. D-dimer from yesterday is 1.35. No additional labs today. 2 L saturation is 94%. Blood pressure is stable. Progress note dated 08/29/2020. This is an 80-year-old male admitted with a diagnosis of acute COVID 19 infection and possible COVID 19 pneumonia. Chest x-ray showed a right posterior lower lobe infiltrate. Currently, the patient's on O2 at 3 L with a saturation of 92%. He is afebrile, the pressure is stable. Clinically, he feels well but today he was a bit rambunctious, and also was agitated, and was not able to give a good story or history. He does have quite severe COPD, with an FEV1 that is 45% of predicted. He also has a history of urinary tract infection, and atrial fibrillation. The patient did have a recent outpatient PET scan in the area of the right lower lobe abnormality, which did not show suspicious uptake. Today's PTT was 39.6 with an INR 3.98. No additional labs were noted. On today's evaluation of 08/30/2020, the patient is on room air oxygen. Doing well. Possible home today. No shortness of breath. No chest pain. He has completed treatment in the hospital for Covid 19 related pneumonia. He is on long-term anticoagulation with warfarin and his INR is therapeutic. He is on Coumadin. He was also treated with Decadron and supportive care Objective - Vital Signs Vital signs: Vital Signs Temp 97.7 F 08/30/20 09:56 Pulse 93 08/30/20 09:56 Resp 20 08/30/20 09:56 BP 111/71 08/30/20 09:56 Pulse Ox 90 L 08/30/20 09:56 Intake & Output 08/29/20 08/30/20 08/30/20 18:59 06:59 18:59 Intake Total 400 Balance 400 Intake: Oral 400 Other: Voiding Method Diaper Diaper Diaper Incontinent Incontinent Incontinent # Voids 2 3 - Exam Agitated and confused. Refusing to wear his oxygen therapy. The patient has been weaned down to room air oxygen for now HEENT examination is grossly unremarkable. Mucous membranes are moist. Neck supple. Full range of motion. No adenopathy thyromegaly or neck vein distention. Cardiovascular examination reveals regular rhythm rate. S1-S2 normal. No S3 or S4. No discernible murmur noted. Heart rate 76 bpm. Heart sounds are distant. Lungs reveal diffuse bilateral rhonchi. A few scattered crackles. Breath sounds equal bilaterally. Abdomen soft bowel sounds are heard. No masses or tenderness. Extremities are intact. No cyanosis clubbing or edema. Skin is without rash or lesion. Neurologic examination is difficult to assess. He's quite agitated refusing to wear his oxygen. He is given the nurses a very hard time. - Labs CBC & Chem 7: 08/30/20 06:50 08/26/20 10:41 Labs: Abnormal Lab Results - Last 24 Hours (Table) 08/30/20 08/30/20 08/30/20 Range/Units 06:50 06:50 06:50 Neutrophils # 9.2 H (1.3-7.7) k/uL Lymphocytes # 0.5 L (1.0-4.8) k/uL PT 25.5 H (9.0-12.0) sec INR 2.6 H (<1.2) D-Dimer 1.30 H (<0.60) mg/L FEU C-Reactive Protein 22.9 H (<10.0) mg/L Microbiology - Last 24 Hours (Table) 08/26/20 20:30 Blood Culture - Preliminary Blood No Growth after 72 hours 08/26/20 20:15 Blood Culture - Preliminary Blood No Growth after 72 hours Assessment and Plan Plan: #1. Acute COVID 19 infection, and possibility of COVID 19 pneumonia, chest x- ray shows right posterior lower lobe infiltrate, although this has been present on chest imaging since June 2020, and patient had outpatient PET scan in the area in the right lower lobe did not show suspicious uptake. Clinically, the patient is doing well. The patient is on room air oxygen. The plan is for this patient to go home today. He'll be completing a course of Decadron. #2. Confusion, rule out underlying dementia versus acute metabolic encephalopathy, brain CT showed no acute intracranial abnormality. #3. Rule out possibility of urinary tract infection, patient is covered with Rocephin. #4. Chronic A. fib on Coumadin. #5. Recent history of acute cholecystitis status post robotically assisted cholecystectomy in June 2020. #6. Chronic COPD with FEV1 of 45% predicted, patient has home oxygen. #7. Back and neck pain, chronic, and chest x-ray showed progressive compression deformity with severe loss of vertebral body in the mid thoracic region. #8. History of skin cancer with resection. #9. Hypertension. #10. Hyperlipidemia. #11. Former smoker. #12. History of bladder and kidney stones. #13. History of diverticulosis. 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 Plan The patient will complete the course of Decadron Continue long-term and to coagulation with warfarin Mental status is appropriate for today No signs of respiratory distress and the patient had essentially normal was working in addition to a therapeutic PT/INR. Home today.
[2020-08-30] MEDS ORDERED: WARFARIN 2.5 MG TAB PO ONE (18:00)
== END 2020-08-30 15:31 | DRG 177 ==
LOC: EC 10:02 → 4SSUR 13:21
PROVIDERS: ADMIT Hospitalist; ATTEND Hospitalist
DX: U07.1 COVID-19 (principal); G93.41 Metabolic encephalopathy; J12.82 Pneumonia due to coronavirus disease 2019; J96.01 Acute respiratory failure with hypoxia; F05 Delirium due to known physiological condition; I48.20 Chronic atrial fibrillation, unspecified; I48.92 Unspecified atrial flutter; J44.0 Chronic obstructive pulmonary disease with (acute) lower respiratory infection; M48.50XA Collapsed vertebra, not elsewhere classified, site unspecified, initial encounter for fracture; S01.112A Laceration without foreign body of left eyelid and periocular area, initial encounter; W06.XXXA Fall from bed, initial encounter; Y92.003 Bedroom of unspecified non-institutional (private) residence as the place of occurrence of the external cause; R79.1 Abnormal coagulation profile; Q63.1 Lobulated, fused and horseshoe kidney; E78.5 Hyperlipidemia, unspecified; F03.90 Unspecified dementia, unspecified severity, without behavioral disturbance, psychotic disturbance, mood disturbance, and anxiety; I10 Essential (primary) hypertension; K57.90 Diverticulosis of intestine, part unspecified, without perforation or abscess without bleeding; Z79.01 Long term (current) use of anticoagulants; Z79.899 Other long term (current) drug therapy; Z80.3 Family history of malignant neoplasm of breast; Z80.8 Family history of malignant neoplasm of other organs or systems; M54.10 Radiculopathy, site unspecified; Z85.828 Personal history of other malignant neoplasm of skin; S40.022A Contusion of left upper arm, initial encounter; Z87.440 Personal history of urinary (tract) infections; Z87.442 Personal history of urinary calculi; Z87.891 Personal history of nicotine dependence; Z90.49 Acquired absence of other specified parts of digestive tract; Z98.42 Cataract extraction status, left eye; Z98.41 Cataract extraction status, right eye; G89.29 Other chronic pain; Z80.0 Family history of malignant neoplasm of digestive organs; Z99.81 Dependence on supplemental oxygen; Z98.1 Arthrodesis status
CPT/HCPCS: 36415; 70450; 71046; 80053; 81001; 82550; 83605; 83735; 83880; 84145; 84484; 85025; 85379; 85610; 85730; 86140; 87040; 87635; 93005; 94640; 94760; 99285

== ENCOUNTER 2021-02-14 07:13 | Emergency (ER) | payer MEDICARE, OTHER ==
[2021-02-14 07:47] VITALS: RESP 18; TEMP 98
--- NOTE | 2021-02-14 07:57 | ED ---
Male Urogenital HPI - General Chief complaint: Urogenital Stated complaint: Male Time Seen by Provider: 02/14/21 07:13 Source: patient, EMS, RN notes reviewed, old records reviewed Mode of arrival: EMS - History of Present Illness Initial comments: 80-year-old male history of pneumonia kidney stones COVID-19 in August of this year who presents with complaints of penile swelling. He was diagnosed with UTI yesterday per reports. Patient himself voices no complaints no reports of fevers chills nausea vomiting sweats. MD Complaint: other - Related Data Home Medications Medication Instructions Recorded Confirmed Diltiazem HCl [Diltiazem HCl 24Hr 120 mg PO DAILY 04/04/18 08/26/20 ER (CD)] Fluticasone/Vilanterol [Breo 1 puff INHALATION RT-DAILY 04/04/18 08/26/20 Ellipta 200-25 Mcg Inhaler] [facility] Vitamin & Mineral 1 tab PO BID 12/29/19 08/26/20 Simvastatin [Zocor] 20 mg PO HS 12/29/19 08/26/20 Albuterol Inhaler [Ventolin Hfa 1 puff INHALATION RT-Q4H PRN 08/26/20 08/26/20 Inhaler] Ipratropium-Albuterol Nebulize 3 ml INHALATION RT-TID 08/26/20 08/26/20 [Duoneb 0.5 mg-3 mg/3 ml Soln] Tamsulosin [Flomax] 0.4 mg PO DAILY 08/26/20 08/26/20 Previous Rx's Medication Instructions Recorded Metoprolol Tartrate [Lopressor] 25 mg PO BID #60 tab 07/02/20 Acetaminophen Tab [Tylenol] 650 mg PO Q6HR PRN tab 07/07/20 Ascorbic Acid [Vitamin C] 1,000 mg PO DAILY #30 tab 08/28/20 Zinc Sulfate [Orazinc] 220 mg PO DAILY #30 cap 08/28/20 dexAMETHasone ORAL [Hexadrol] 6 mg PO DAILY #7 tablet 08/28/20 Warfarin Sodium 2.5 mg PO HS #0 08/30/20 Cephalexin [Keflex] 500 mg PO Q6HR 1 Days #40 cap 02/14/21 Allergies Allergy/AdvReac Type Severity Reaction Status Date / Time No Known Allergies Allergy Verified 02/14/21 07:22 Review of Systems ROS Statement: Those systems with pertinent positive or pertinent negative responses have been documented in the HPI. ROS Other: All systems not noted in ROS Statement are negative. 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 Past Anesthesia/Blood Transfusion Reactions: No Reported Reaction Past Psychological History: No Psychological Hx Reported Smoking Status: Never smoker Past Alcohol Use History: None Reported Past Drug Use History: None Reported - Past Family History Father Additional Family Medical History / Comment(s): Father was a drinker. He at the age of 80yrs. Mother Family Medical History: No Reported History Additional Family Medical History / Comment(s): Mother was healthy and lived to b90yrs old. Daughter(s) Family Medical History: Cancer Additional Family Medical History / Comment(s): Nely had breast cancer. Brother(s) Family Medical History: Cancer Additional Family Medical History / Comment(s): Brother had melanoma skin cancer. Sister(s) Family Medical History: Cancer Additional Family Medical History / Comment(s): Sister had melanoma skin cancer. General Exam - General Exam Comments Initial Comments: This is a well-developed well-nourished awake alert oriented 3 male General appearance: alert, in no apparent distress Head exam: Present: atraumatic, normocephalic, normal inspection Eye exam: Present: normal appearance, PERRL, EOMI. Absent: scleral icterus, conjunctival injection, periorbital swelling ENT exam: Present: normal exam, mucous membranes moist Neck exam: Present: normal inspection. Absent: tenderness, meningismus, lymphadenopathy Respiratory exam: Present: normal lung sounds bilaterally. Absent: respiratory distress, wheezes, rales, rhonchi, stridor Cardiovascular Exam: Present: regular rate, normal rhythm, normal heart sounds. Absent: systolic murmur, diastolic murmur, rubs, gallop, clicks GI/Abdominal exam: Present: soft, normal bowel sounds. Absent: distended, tenderness, guarding, rebound, rigid, bruit, pulsatile mass Rectal exam: Present: deferred exam: Present: other (Examination of the penis and scrotum reveals mild edema to the glans penis also to the distal integument some excoriation noted. No discharge seen. No testicular swelling or tenderness. Patient is circumcised. No overt tenderness palpation) Extremities exam: Present: normal inspection, full ROM, normal capillary refill. Absent: tenderness, pedal edema, joint swelling, calf tenderness Back exam: Present: normal inspection Neurological exam: Present: alert, oriented X3, CN II-XII intact Psychiatric exam: Present: normal affect, normal mood Skin exam: Present: warm, dry, intact, normal color. Absent: rash Course Vital Signs 02/14/21 02/14/21 07:14 09:56 Temperature 98 F Pulse Rate 86 90 Respiratory 18 18 Rate Blood Pressure 124/77 123/87 O2 Sat by Pulse 96 98 Oximetry Medical Decision Making - Medical Decision Making Patient did have evidence of a UTI as well as excoriation of the penis. Patient will be placed on appropriate antibiotics. He'll be discharged back to his nursing facility - Lab Data Result diagrams: 02/14/21 07:58 02/14/21 07:58 Lab Results 02/14/21 02/14/21 02/14/21 Range/Units 07:58 07:58 07:58 WBC 9.7 (3.8-10.6) k/uL RBC 4.89 (4.30-5.90) m/uL Hgb 13.8 (13.0-17.5) gm/dL Hct 42.0 (39.0-53.0) % MCV 85.9 (80.0-100.0) fL MCH 28.2 (25.0-35.0) pg MCHC 32.8 (31.0-37.0) g/dL RDW 15.5 (11.5-15.5) % Plt Count 160 (150-450) k/uL MPV 7.3 Neutrophils % 74 % Lymphocytes % 14 % Monocytes % 7 % Eosinophils % 3 % Basophils % 0 % Neutrophils # 7.2 (1.3-7.7) k/uL Lymphocytes # 1.3 (1.0-4.8) k/uL Monocytes # 0.7 (0-1.0) k/uL Eosinophils # 0.3 (0-0.7) k/uL Basophils # 0.0 (0-0.2) k/uL PT 37.8 H (9.0-12.0) sec INR 3.9 H (<1.2) Sodium 137 (137-145) mmol/L Potassium 4.1 (3.5-5.1) mmol/L Chloride 106 (98-107) mmol/L Carbon Dioxide 24 (22-30) mmol/L Anion Gap 7 mmol/L BUN 21 H (9-20) mg/dL Creatinine 0.68 (0.66-1.25) mg/dL Est GFR (CKD-EPI)AfAm >90 (>60 ml/min/1.73 sqM) Est GFR (CKD-EPI)NonAf >90 (>60 ml/min/1.73 sqM) Glucose 118 H (74-99) mg/dL Calcium 8.8 (8.4-10.2) mg/dL Total Bilirubin 0.7 (0.2-1.3) mg/dL AST 24 (17-59) U/L ALT 21 (4-49) U/L Alkaline Phosphatase 100 (38-126) U/L Creatine Kinase 44 L (55-170) U/L Total Protein 6.4 (6.3-8.2) g/dL Albumin 3.2 L (3.5-5.0) g/dL Urine Color Urine Appearance (Clear) Urine pH (5.0-8.0) Ur Specific [place] (1.001-1.035) Urine Protein (Negative) Urine Glucose (UA) (Negative) Urine Ketones (Negative) Urine Blood (Negative) Urine Nitrite (Negative) Urine Bilirubin (Negative) Urine Urobilinogen (<2.0) mg/dL Ur Leukocyte Esterase (Negative) Urine RBC (0-5) /hpf Urine WBC (0-5) /hpf Urine Mucus (None) /hpf 02/14/21 Range/Units 07:58 WBC (3.8-10.6) k/uL RBC (4.30-5.90) m/uL Hgb (13.0-17.5) gm/dL Hct (39.0-53.0) % MCV (80.0-100.0) fL MCH (25.0-35.0) pg MCHC (31.0-37.0) g/dL RDW (11.5-15.5) % Plt Count (150-450) k/uL MPV Neutrophils % % Lymphocytes % % Monocytes % % Eosinophils % % Basophils % % Neutrophils # (1.3-7.7) k/uL Lymphocytes # (1.0-4.8) k/uL Monocytes # (0-1.0) k/uL Eosinophils # (0-0.7) k/uL Basophils # (0-0.2) k/uL PT (9.0-12.0) sec INR (<1.2) Sodium (137-145) mmol/L Potassium (3.5-5.1) mmol/L Chloride (98-107) mmol/L Carbon Dioxide (22-30) mmol/L Anion Gap mmol/L BUN (9-20) mg/dL Creatinine (0.66-1.25) mg/dL Est GFR (CKD-EPI)AfAm (>60 ml/min/1.73 sqM) Est GFR (CKD-EPI)NonAf (>60 ml/min/1.73 sqM) Glucose (74-99) mg/dL Calcium (8.4-10.2) mg/dL Total Bilirubin (0.2-1.3) mg/dL AST (17-59) U/L ALT (4-49) U/L Alkaline Phosphatase (38-126) U/L Creatine Kinase (55-170) U/L Total Protein (6.3-8.2) g/dL Albumin (3.5-5.0) g/dL Urine Color Light Red Urine Appearance Cloudy (Clear) Urine pH 5.5 (5.0-8.0) Ur Specific [place] 1.015 (1.001-1.035) Urine Protein Trace H (Negative) Urine Glucose (UA) Negative (Negative) Urine Ketones Negative (Negative) Urine Blood Large H (Negative) Urine Nitrite Negative (Negative) Urine Bilirubin Negative (Negative) Urine Urobilinogen <2.0 (<2.0) mg/dL Ur Leukocyte Esterase Negative (Negative) Urine RBC >182 H (0-5) /hpf Urine WBC 1 (0-5) /hpf Urine Mucus Rare H (None) /hpf Disposition Clinical Impression: Urinary tract infection, Balanitis Disposition: HOME SELF-CARE Condition: Good Instructions (If sedation given, give patient instructions): Urinary Tract Infection in Men (ED), Balanitis (ED) Prescriptions: Cephalexin [Keflex] 500 mg PO Q6HR 1 Days #40 cap Is patient prescribed a controlled substance at d/c from ED?: No Referrals: Johnathan Bustillos MD [Primary Care Provider] - 1-2 days
[2021-02-14 08:31] LABS: Basophils % (A) 0 %; Eosinophils # (A) 0.3 k/uL (0-0.7); Eosinophils % (A) 3 %; HGB 13.8 gm/dL (13.0-17.5); Lymphocytes # (A) 1.3 k/uL (1.0-4.8); Lymphocytes % (A) 14 %; MCH 28.2 pg (25.0-35.0); MCHC 32.8 g/dL (31.0-37.0); MCV 85.9 fL (80.0-100.0); Mean Platelet Volume 7.3; Monocytes # (A) 0.7 k/uL (0-1.0); Monocytes % (A) 7 %; Neutrophils # (A) 7.2 k/uL (1.3-7.7); Neutrophils % (A) 74 %; Platelet Count 160 k/uL (150-450); RBC 4.89 m/uL (4.30-5.90); RDW 15.5 % (11.5-15.5); WBC 9.7 k/uL (3.8-10.6)
[2021-02-14 08:40] LABS: ALT 21 U/L (4-49); AST 24 U/L (17-59); African American GFR (CKD) >90 (>60 ml/min/1.73 sqM); Albumin 3.2 g/dL (3.5-5.0); Alkaline Phosphatase 100 U/L (38-126); Anion Gap 7 mmol/L; Blood Urea Nitrogen 21 mg/dL (9-20); Calcium 8.8 mg/dL (8.4-10.2); Carbon Dioxide 24 mmol/L (22-30); Chloride 106 mmol/L (98-107); Creatine Kinase 44 U/L (55-170); Glucose 118 mg/dL (74-99); Non-African American GFR(CKD) >90 (>60 ml/min/1.73 sqM); Potassium 4.1 mmol/L (3.5-5.1); Sodium 137 mmol/L (137-145); Total Bilirubin 0.7 mg/dL (0.2-1.3); Total Protein 6.4 g/dL (6.3-8.2)
[2021-02-14 08:51] LABS: INR 3.9 (<1.2); Prothrombin Time 37.8 sec (9.0-12.0)
[2021-02-14 09:02] LABS: Appearance,Urine Cloudy (Clear); Bilirubin,Urine Negative (Negative); Blood,Urine Large (Negative); Color,Urine Light Red; Glucose,Urine (UA) Negative (Negative); Ketones,Urine Negative (Negative); Leukocyte Esterase,Urine Negative (Negative); Mucus,Urine Rare /hpf; Nitrite,Urine Negative (Negative); PH, Urine 5.5 (5.0-8.0); Protein,Urine Trace (Negative); RBC,Urine >182 /hpf (0-5); Specific Gravity,Urine 1.015 (1.001-1.035); Urobilinogen,Urine <2.0 mg/dL (<2.0); WBC,Urine 1 /hpf (0-5)
[2021-02-14] MEDS ORDERED: cefTRIAXone IN SWFI 1,000 MG/10 ML SYRINGE IVP STA (09:35)
[2021-02-14 09:58] VITALS: BP 123/87; PULSE 90
== END 2021-02-14 10:14 | disposition home or self-care (01) ==
LOC: EC 07:13
DX: N39.0 Urinary tract infection, site not specified (principal); N48.1 Balanitis; I10 Essential (primary) hypertension; J44.9 Chronic obstructive pulmonary disease, unspecified; E78.5 Hyperlipidemia, unspecified; I48.20 Chronic atrial fibrillation, unspecified; Z79.01 Long term (current) use of anticoagulants; Z79.52 Long term (current) use of systemic steroids; Z85.828 Personal history of other malignant neoplasm of skin; Z87.442 Personal history of urinary calculi; Z79.51 Long term (current) use of inhaled steroids; Z86.16 Personal history of COVID-19
CPT/HCPCS: 36415; 80053; 82550; 85025; 85610; 81001; 87040; 99284; 96374; J0696

== ENCOUNTER 2021-06-25 16:39 | Inpatient (IN) | payer MEDICARE, OTHER ==
--- NOTE | 2021-06-25 16:59 | ED ---
General Adult HPI - General Stated complaint: altered mental status Time Seen by Provider: 06/25/21 16:42 Source: patient, EMS Mode of arrival: EMS Limitations: altered mental status - History of Present Illness Initial comments: Patient presents to the ED from his fdc by ambulance for evaluation. Per fdc report, the patient is normally ambulatory with a walker and A and O 4, and he was last seen normal at approximately 1545 today. Per fdc report, the patient was found unresponsive, aphasic and "staring off into space" shortly before calling for an ambulance today. Patient's blood glucose was reportedly normal (in the low 100s). On arrival to the ED, patient is completely aphasic, but he nods his head to answer questions and he follows sim ple commands. Patient nods his head no when asked if he is having any pain. Patient is reportedly on warfarin anticoagulation treatment. Code Stroke was activated on patient's arrival to the ED. - Related Data Home Medications Medication Instructions Recorded Confirmed Diltiazem HCl [Diltiazem HCl 24Hr 120 mg PO DAILY@0900 04/04/18 06/25/21 ER (CD)] Albuterol Inhaler [Ventolin Hfa 1 puff INHALATION RT-Q4H PRN 08/26/20 06/25/21 Inhaler] Ipratropium-Albuterol Nebulize 3 ml INHALATION RT-TID@,08/26/20 06/25/21 [Duoneb 0.5 mg-3 mg/3 ml Soln] Tamsulosin [Flomax] 0.4 mg PO HS@2100 08/26/20 06/25/21 Atorvastatin [Lipitor] 10 mg PO HS@209906/08/21 06/25/21 Cholecalciferol [Vitamin D3 (25 50 mcg PO HS@2100 06/08/21 06/25/21 Mcg = 1000 Iu)] Ipratropium-Albuterol Nebulize 3 ml INHALATION RT-Q4H PRN 06/08/21 06/25/21 [Duoneb 0.5 mg-3 mg/3 ml Soln] Lactose-Reduced Food [Ensure Plus] 1 can PO BID@0900,209906/08/21 06/25/21 Magnesium Hydroxide [Milk of 2,400 mg PO DAILY PRN 06/08/21 06/25/21 Magnesia] Metoprolol Tartrate [Lopressor] 25 mg PO BID@0900,2100 06/08/21 06/25/21 Multivitamins, Thera [Multivitamin 1 tab PO BID@0900,2100 06/08/21 06/25/21 (formulary)] Na Phos,M-B/Na Phos,Di-Ba [Fleet 133 ml RECTAL DAILY PRN 06/08/21 06/25/21 Adult] Warfarin Sodium 4 mg PO MOWEFR@1700 06/08/21 06/25/21 Warfarin Sodium 6 mg PO SUTUTHSA@1600 06/08/21 06/25/21 bisacodyL [Dulcolax] 10 mg RECTAL DAILY PRN 06/08/21 06/25/21 Folic Acid 1 mg PO DAILY@0900 06/25/21 06/25/21 Furosemide [Lasix] 20 mg PO DAILY@0600 06/25/21 06/25/21 Pantoprazole [Protonix] 40 mg PO DAILY@0600 06/25/21 06/25/21 Previous Rx's Medication Instructions Recorded Acetaminophen Tab [Tylenol] 650 mg PO Q6HR PRN tab 07/07/20 Allergies Allergy/AdvReac Type Severity Reaction Status Date / Time No Known Allergies Allergy Verified 06/25/21 17:48 Review of Systems ROS Statement: Those systems with pertinent positive or pertinent negative responses have been documented in the HPI. ROS Other: All systems not noted in ROS Statement are negative. 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 Past Anesthesia/Blood Transfusion Reactions: No Reported Reaction Past Psychological History: No Psychological Hx Reported Additional Psychological History / Comment(s): Patient is at [facility] on the [address]. He has home oxygen but does not wear it. He has a nebulizer. Smoking Status: Never smoker Past Alcohol Use History: None Reported Additional Past Alcohol Use History / Comment(s): Pt smoked off and on from 1976 until 1981 Past Drug Use History: None Reported - Past Family History Father Additional Family Medical History / Comment(s): Father was a drinker. He at the age of 80yrs. Mother Family Medical History: No Reported History Additional Family Medical History / Comment(s): Mother was healthy and lived to b90yrs old. Daughter(s) Family Medical History: Cancer Additional Family Medical History / Comment(s): Nely had breast cancer. Brother(s) Family Medical History: Cancer Additional Family Medical History / Comment(s): Brother had melanoma skin cancer. Sister(s) Family Medical History: Cancer Additional Family Medical History / Comment(s): Sister had melanoma skin cancer. General Exam Limitations: altered mental status General appearance: alert, other (Patient is completely aphasic) Head exam: Present: atraumatic, normocephalic Eye exam: Present: normal appearance, PERRL, EOMI ENT exam: Present: mucous membranes dry Neck exam: Present: other (Trachea is in midline; no nuchal rigidity). Absent: tenderness, meningismus Respiratory exam: Present: normal lung sounds bilaterally. Absent: respiratory distress, rales, rhonchi, stridor Cardiovascular Exam: Present: regular rate, normal rhythm, normal heart sounds, other (Normal radial pulses bilaterally) GI/Abdominal exam: Present: soft. Absent: distended, tenderness, guarding Extremities exam: Absent: tenderness, pedal edema Back exam: Present: normal inspection Neurological exam: Present: alert, other (Patient is moving all 4 extremities spontaneously, but is generally weak; patient localizes to pain in all 4 extremities; EOMI; NIH stroke scale score = 13) Skin exam: Present: warm, dry, intact, normal color Course Vital Signs 06/25/21 06/25/21 06/25/21 16:45 16:49 17:30 Temperature 98 F 98 F 97.9 F Pulse Rate 66 66 78 Respiratory 16 16 16 Rate Blood Pressure 121/66 121/66 102/57 O2 Sat by Pulse 100 100 98 Oximetry - Reevaluation(s) Reevaluation #1: 06/25/21 16:53 Case, H&P and pending ED workup were discussed with Dr. Freed (neurointerventionalist). He states that the patient is likely not a TPA candidate given his warfarin use, but if the patient's INR result is lower than 1.1, then the patient may be a TPA candidate. He states that he will follow-up on the patient's imaging and lab results. 06/25/21 17:30 Dr. Freed states that he has reviewed the patient's imaging studies, and they are all negative. He states that there is no bleed or large vessel occlusion. Given that the patient's INR is 1.8, he states that the patient is not a TPA candidate. He recommends aspirin and hospital admission. He has no further recommendations at this time. 06/25/21 18:03 Patient is now answering questions with short sentence responses. Patient remains alert and breathing comfortably. Patient and his family are aware the patient's test results and my discussion with Dr. Freed as above. They all agree with hospital admission at this time. 06/25/21 18:15 Case, H&P, test results, ED management and my discussions with Dr. Freed as above were discussed with Dr. King. He accepts hospital admission. He has no further recommendations at this time. EKG Findings - EKG Comments: EKG Findings:: Atrial fibrillation with premature ventricular or aberrantly conducted complexes, ventricular rate of 80 bpm, normal QRS duration, normal QT interval, no definite ST or T-wave abnormality Medical Decision Making - Medical Decision Making Patient's imaging studies and labs are fairly unremarkable. Given the patient's symptoms, acute CVA vs. TIA is still suspected. Patient is not a TPA candidate due to warfarin use an INR of 1.8. Patient's aphasia has been improving while in the ED. Dr. King has accepted hospital admission. - Lab Data Result diagrams: 06/25/21 16:55 06/25/21 16:55 Lab Results 06/25/21 06/25/21 06/25/21 Range/Units 16:55 16:55 16:55 WBC 9.0 (3.8-10.6) k/uL RBC 4.63 (4.30-5.90) m/uL Hgb 13.5 (13.0-17.5) gm/dL Hct 41.8 (39.0-53.0) % MCV 90.4 (80.0-100.0) fL MCH 29.1 (25.0-35.0) pg MCHC 32.2 (31.0-37.0) g/dL RDW 14.6 (11.5-15.5) % Plt Count 253 (150-450) k/uL MPV 7.4 Neutrophils % 66 % Lymphocytes % 18 % Monocytes % 7 % Eosinophils % 7 % Basophils % 1 % Neutrophils # 6.0 (1.3-7.7) k/uL Lymphocytes # 1.6 (1.0-4.8) k/uL Monocytes # 0.6 (0-1.0) k/uL Eosinophils # 0.6 (0-0.7) k/uL Basophils # 0.1 (0-0.2) k/uL PT 17.6 H (9.0-12.0) sec INR 1.8 H (<1.2) APTT 28.0 (22.0-30.0) sec Sodium 139 (137-145) mmol/L Potassium 4.1 (3.5-5.1) mmol/L Chloride 103 (98-107) mmol/L Carbon Dioxide 28 (22-30) mmol/L Anion Gap 8 mmol/L BUN 22 H (9-20) mg/dL Creatinine 1.00 (0.66-1.25) mg/dL Est GFR (CKD-EPI)AfAm 82 (>60 ml/min/1.73 sqM) Est GFR (CKD-EPI)NonAf 71 (>60 ml/min/1.73 sqM) Glucose 128 H (74-99) mg/dL Calcium 8.9 (8.4-10.2) mg/dL Total Bilirubin 0.6 (0.2-1.3) mg/dL AST 29 (17-59) U/L ALT 26 (4-49) U/L Alkaline Phosphatase 101 (38-126) U/L Troponin I (0.000-0.034) ng/mL Total Protein 7.1 (6.3-8.2) g/dL Albumin 3.5 (3.5-5.0) g/dL Urine Color Urine Appearance (Clear) Urine pH (5.0-8.0) Ur Specific [place] (1.001-1.035) Urine Protein (Negative) Urine Glucose (UA) (Negative) Urine Ketones (Negative) Urine Blood (Negative) Urine Nitrite (Negative) Urine Bilirubin (Negative) Urine Urobilinogen (<2.0) mg/dL Ur Leukocyte Esterase (Negative) Urine RBC (0-5) /hpf Urine WBC (0-5) /hpf Ur Squamous Epith Cells (0-4) /hpf Urine Bacteria (None) /hpf Urine Mucus (None) /hpf 06/25/21 06/25/21 Range/Units 16:55 17:42 WBC (3.8-10.6) k/uL RBC (4.30-5.90) m/uL Hgb (13.0-17.5) gm/dL Hct (39.0-53.0) % MCV (80.0-100.0) fL MCH (25.0-35.0) pg MCHC (31.0-37.0) g/dL RDW (11.5-15.5) % Plt Count (150-450) k/uL MPV Neutrophils % % Lymphocytes % % Monocytes % % Eosinophils % % Basophils % % Neutrophils # (1.3-7.7) k/uL Lymphocytes # (1.0-4.8) k/uL Monocytes # (0-1.0) k/uL Eosinophils # (0-0.7) k/uL Basophils # (0-0.2) k/uL PT (9.0-12.0) sec INR (<1.2) APTT (22.0-30.0) sec Sodium (137-145) mmol/L Potassium (3.5-5.1) mmol/L Chloride (98-107) mmol/L Carbon Dioxide (22-30) mmol/L Anion Gap mmol/L BUN (9-20) mg/dL Creatinine (0.66-1.25) mg/dL Est GFR (CKD-EPI)AfAm (>60 ml/min/1.73 sqM) Est GFR (CKD-EPI)NonAf (>60 ml/min/1.73 sqM) Glucose (74-99) mg/dL Calcium (8.4-10.2) mg/dL Total Bilirubin (0.2-1.3) mg/dL AST (17-59) U/L ALT (4-49) U/L Alkaline Phosphatase (38-126) U/L Troponin I <0.012 (0.000-0.034) ng/mL Total Protein (6.3-8.2) g/dL Albumin (3.5-5.0) g/dL Urine Color Yellow Urine Appearance Clear (Clear) Urine pH 6.0 (5.0-8.0) Ur Specific [place] 1.022 (1.001-1.035) Urine Protein Negative (Negative) Urine Glucose (UA) Negative (Negative) Urine Ketones Negative (Negative) Urine Blood Moderate H (Negative) Urine Nitrite Negative (Negative) Urine Bilirubin Negative (Negative) Urine Urobilinogen <2.0 (<2.0) mg/dL Ur Leukocyte Esterase Negative (Negative) Urine RBC 86 H (0-5) /hpf Urine WBC 2 (0-5) /hpf Ur Squamous Epith Cells <1 (0-4) /hpf Urine Bacteria Rare H (None) /hpf Urine Mucus Rare H (None) /hpf - Radiology Data Radiology results: report reviewed (Chest x-ray: Chronic changes without acute pulmonary process. No significant change from prior.) Noncontrast head CT: Stable chronic changes with no evidence for acute intracranial hemorrhage, midline shift or mass effect. CT angiography head/neck with IV contrast: No major vessel occlusion, aneurysm or dissection. Mild to moderate bilateral carotid bifurcation narrowing. Right pleural thickening incompletely seen, no significant change since 06/27/2020 and the included portion. Critical Care Time Critical Care Time: Yes Total Critical Care Time: 50 Disposition Clinical Impression: Altered mental status, Aphasia, Atrial fibrillation Disposition: ADMITTED IP TO THIS HOSP Condition: Stable Is patient prescribed a controlled substance at d/c from ED?: No Time of Disposition: 18:17
[2021-06-25 17:22] LABS: Albumin 3.5 g/dL (3.5-5.0); Calcium 8.9 mg/dL (8.4-10.2); Potassium 4.1 mmol/L (3.5-5.1); Total Bilirubin 0.6 mg/dL (0.2-1.3); Total Protein 7.1 g/dL (6.3-8.2)
[2021-06-25 17:23] LABS: INR 1.8 (<1.2); Prothrombin Time 17.6 sec (9.0-12.0)
[2021-06-25] MEDS ORDERED: ASPIRIN 81 MG PO STA (17:31)
--- NOTE | 2021-06-25 17:44 | CT ---
EXAMINATION TYPE: CT brain wo con for TPA, CT angio head neck DATE OF EXAM: 06/25/2021 COMPARISON: 08/28/2020 HISTORY: ams, no speaking, general weakness (accession [id number]), ams (accession [id number]) TECHNIQUE: CT scan of the head performed without contrast. CT angiogram of the head and neck was performed with contrast. CT DLP: 1134.8 (accession [id number]), 534.4 (accession [id number]) mGycm Automated exposure control for dose reduction was used. FINDINGS: CT head noncontrast: No acute intracranial hemorrhage, midline shift or mass effect. Mata-white matter differentiation is preserved. Patchy low-attenuation the deep white matter periventricular regions again seen. Scattered areas of low attenuation the bilateral white matter and basal ganglia are again seen. There is prominence of the ventricles and CSF spaces 20 degree similar to prior study indicative of b rain volume loss. No acute orbital, osseous or soft tissue abnormalities are appreciated. There are atherosclerotic calcifications in the intracranial internal carotid arteries. No mastoid air cell or paranasal sinus air-fluid level. CT angiogram head and neck: No Major vessel occlusion within the [place]. The left M1 MCA is mildly stenosed compared to the right. No intracranial aneurysm is seen. No evidence for arterial dissection. Atherosclerotic calcifications are seen in the arch of the aorta which has a 3 vessel configuration. There are soft and calcific plaques at the bilateral carotid bifurcation causing mild to moderate yuli ateral right greater than left common carotid artery bifurcation narrowing. Atherosclerotic calcifica tions are seen at the origin of the bilateral vertebral arteries which are patent throughout. The lef t vertebral artery is dominant. The basilar artery is patent. Anterior spinal fixation hardware extends from C3 66 with intervertebral disc spacers. Severe degener ative changes are prominent throughout the cervical and thoracic spine. No acute fracture or dislocat ion is appreciated. No cervical lymphadenopathy. The airways are symmetric and patent. There are COPD/emphysema changes in the upper lung lobes. There is focal pleural thickening of the ri t upper thorax. IMPRESSION: CT HEAD NONCONTRAST: STABLE CHRONIC CHANGES WITH NO EVIDENCE FOR ACUTE INTRACRANIAL HEMORRHAGE, MIDLINE SHIFT OR MASS EFFE CT. CT ANGIOGRAM HEAD AND NECK: NO MAJOR VESSEL OCCLUSION, ANEURYSM OR DISSECTION. MILD TO MODERATE BILATERAL CAROTID BIFURCATION NARROWING. RIGHT PLEURAL THICKENING.INCOMPLETELY SEEN, NO SIGNIFICANT CHANGE SINCE 06/27/2020 AND THE INCLUDED PO RTION.
[2021-06-25 17:56] LABS: Basophils # (A) 0.1 k/uL (0-0.2); Basophils % (A) 1 %; Eosinophils # (A) 0.6 k/uL (0-0.7); Eosinophils % (A) 7 %; HCT 41.8 % (39.0-53.0); HGB 13.5 gm/dL (13.0-17.5); Lymphocytes # (A) 1.6 k/uL (1.0-4.8); Lymphocytes % (A) 18 %; MCH 29.1 pg (25.0-35.0); MCHC 32.2 g/dL (31.0-37.0); MCV 90.4 fL (80.0-100.0); Mean Platelet Volume 7.4; Monocytes # (A) 0.6 k/uL (0-1.0); Monocytes % (A) 7 %; Neutrophils % (A) 66 %; Platelet Count 253 k/uL (150-450); RBC 4.63 m/uL (4.30-5.90); RDW 14.6 % (11.5-15.5)
[2021-06-25 18:20] LABS: Appearance,Urine Clear (Clear); Bacteria,Urine Rare /hpf; Bilirubin,Urine Negative (Negative); Blood,Urine Moderate (Negative); Color,Urine Yellow; Glucose,Urine (UA) Negative (Negative); Ketones,Urine Negative (Negative); Leukocyte Esterase,Urine Negative (Negative); Mucus,Urine Rare /hpf; Nitrite,Urine Negative (Negative); Protein,Urine Negative (Negative); RBC,Urine 86 /hpf (0-5); Specific Gravity,Urine 1.022 (1.001-1.035); Squamous Epithelial Cell,Urine <1 /hpf (0-4); Urobilinogen,Urine <2.0 mg/dL (<2.0); WBC,Urine 2 /hpf (0-5)
--- NOTE | 2021-06-25 18:21 | XR ---
EXAMINATION TYPE: XR chest 1V portable DATE OF EXAM: 06/25/2021 6:14 PM COMPARISON:Multiple radiographs, with the most recent on 05/30/2021 CLINICAL INDICATION:Male, 80 years old with history of altered mental status; TECHNIQUE: Frontal view of the chest. FINDINGS: Lungs/Pleura: Interstitial lung markings are prominent and stable. Bibasilar atelectasis. Lucencies w ithin the lung apices consistent with emphysema changes. There is no evidence of pleural effusion, fo deepali consolidation, or pneumothorax. Pulmonary vascularity: Unremarkable. Heart/mediastinum: Cardiomediastinal silhouette is unremarkable. Musculoskeletal: No acute osseous pathology. Partially fixation hardware in the lower spine. IMPRESSION: Chronic changes without acute pulmonary process. No significant change from prior.
[2021-06-25 18:46] LABS: Amphetamine Screen,Urine Not Detected (NotDetected); Barbiturate Screen,Urine Not Detected (NotDetected); Benzodiazepines Screen,Urine Not Detected (NotDetected); Cocaine Screen,Urine Not Detected (NotDetected); Methadone Screen, Urine Not Detected (NotDetected); Opiate Screen,Urine Not Detected (NotDetected); Oxycodone Screen, Urine Not Detected (NotDetected); Phencyclidine Screen,Urine Not Detected (NotDetected); Tricyclic Antidepressant,Urine Not Detected (NotDetected); Urn Cannabinoid Scrn Not Detected (NotDetected)
[2021-06-25] MEDS ORDERED: MAGNESIUM HYDROXIDE 2,400 MG/10 ML CUP PO PRN (19:40)
[2021-06-25] MEDS ORDERED: bisacodyL 10 MG SUPP RECTAL PRN (19:40)
[2021-06-25] MEDS ORDERED: NA PHOS,M-B/NA PHOS,DI-BA 133 ML ENEMA RECTAL PRN (19:40)
[2021-06-25] MEDS ORDERED: IPRATROPIUM-ALBUTEROL 3 ML NEB INHALATION PRN (19:40)
[2021-06-25] MEDS ORDERED: ALBUTEROL NEBULIZED 2.5 MG/3 ML INHALATION PRN (19:40)
[2021-06-25] MEDS ORDERED: ACETAMINOPHEN TAB 325 MG TAB PO PRN (19:40)
[2021-06-25] MEDS ORDERED: WARFARIN 7.5 MG TAB PO ONE (20:00)
[2021-06-25] MEDS ORDERED: NON FORMULARY DRUG (Lactose-Reduced Food [Ensure Plus] 237 ML Ml) PO SCH (21:00)
[2021-06-25] MEDS: IPRATROPIUM-ALBUTEROL 3 ML NEB INHALATION SCH (21:14)
--- NOTE | 2021-06-25 21:45 | HP ---
HISTORY AND PHYSICAL DATE OF SERVICE: 06/25/2021 CHIEF COMPLAINTS: Change in mental status and expressive dysphasia. HISTORY OF PRESENT ILLNESS: This 80-year-old gentleman with a past medical history of atrial fibrillation, COPD, hypertension, being followed by Dr. Bustillos in the outpatient setting, was complaining of some difficulty in speaking and change in mental status that lasted for several hours. The speech subsequently improved and almost back to normal, according to the family. The patient came to [facility] and was admitted for further evaluation and treatment. STROKE CODE was called and a detailed stroke workup was done which included a brain CT and CT angio that did not show any acute abnormality. Stable chronic changes were noted and moderate bilateral carotid was also noted. Right pleural thickening was also noted. The patient was admitted for further evaluation and treatment. There is no history of any fever, rigor or chills at this time. PAST MEDICAL HISTORY: History of atrial fibrillation, COPD, hypertension. HOME MEDICATIONS: Reviewed. They include magnesium, albuterol, bisacodyl, Atrovent, metoprolol. Doses and other medications are reviewed. ALLERGIES: NONE. FAMILY HISTORY: History of EtOH. SOCIAL HISTORY: No history of smoking. No history of alcohol intake. REVIEW OF SYSTEMS: ENT: Diminished hearing. Diminished vision. CARDIOVASCULAR SYSTEM: No angina, palpitations. RESPIRATORY SYSTEM: As mentioned earlier. GI: As mentioned earlier. : No dysuria. NERVOUS SYSTEM: No numbness, weakness. ALLERGY/IMMUNOLOGY: No asthma or hay fever. MUSCULOSKELETAL: As mentioned earlier. HEMATOLOGY/ONCOLOGY: No history of anemia. ENDOCRINE: No history of diabetes or hypothyroidism. CONSTITUTIONAL: As mentioned earlier. DERMATOLOGY: Negative. RHEUMATOLOGY: Negative. PSYCHIATRY: As mentioned earlier. PHYSICAL EXAMINATION: Alert and oriented x2. Pulse 63, blood pressure 120/60, respirations 16, temperature 98 degrees, pulse ox 100% on 2 L. Minimal present. HEENT: Conjunctivae normal. Oral mucosa moist. NECK: No jugular venous distention. CARDIOVASCULAR: S1, S2 muffled. RESPIRATION: Breath sounds diminished at the bases. A few scattered rhonchi. ABDOMEN: Soft, nontender. LEGS: No edema. No swelling. NERVOUS SYSTEM: Higher functions as mentioned earlier. Moves all 4 limbs. Mild diffuse weakness. LYMPHATICS: No lymph node palpable in neck, axillae or groin. SKIN: No ulcer, rash, bleeding. JOINTS: No active deforming arthropathy. LABS: INR 1.8. CBC within normal limits. UA noted. ASSESSMENT: 1. Expressive dysphasia, possibly acute transient ischemic attack or acute stroke involving the left hemisphere. 2. History of atrial fibrillation, chronic. 3. Coumadin monitoring and subtherapeutic INR. 4. History of chronic obstructive pulmonary disease with 45% FEV1. 5. Hypertension. 6. History of skin cancer. 7. History of chronic neck pain with radiculopathy. 8. Hypertension. 9. Hyperlipidemia. 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 11.FULL CODE. RECOMMENDATIONS AND DISCUSSION: In this 80-year-old gentleman who presented with multiple complex medical issues, we will monitor the patient closely. I would recommend continuing the antiplatelet agents and Lipitor. Neurology evaluation. Neurovascular workup. Prognosis is guarded because of multiple complex medical issues. Further recommendations to follow. A copy of this dictation is being forwarded to Dr. Bustillos, who is the primary physician. Will also monitor PT/INR closely. MAULIK / HERNANDON: [id number] / DAINA
[2021-06-26] MEDS: ATORVASTATIN 20 MG TAB PO SCH ×2 (03:26→20:39)
[2021-06-26] MEDS: TAMSULOSIN 0.4 MG CAP.ER.24H PO SCH ×2 (03:26→20:39)
[2021-06-26] MEDS: METOPROLOL TARTRATE 25 MG TAB PO SCH ×3 (03:26→20:39)
[2021-06-26] MEDS: MULTIVITAMINS, THERA 1 EACH TAB PO SCH ×3 (03:28→20:39)
[2021-06-26] MEDS: CHOLECALCIFEROL 25 MCG (1000 IU) TABLET PO SCH ×2 (03:28→20:39)
[2021-06-26] MEDS: FUROSEMIDE 20 MG TAB PO SCH (05:41)
[2021-06-26] MEDS: PANTOPRAZOLE 40 MG TABLET PO SCH (05:41)
[2021-06-26 07:51] LABS: INR 1.6 (<1.2); Prothrombin Time 16.3 sec (9.0-12.0)
[2021-06-26] MEDS: FOLIC ACID 1 MG TAB PO SCH (09:05)
[2021-06-26] MEDS: ASPIRIN 81 MG PO SCH (09:05)
[2021-06-26] MEDS: DILTIAZEM CD 120 MG CAP.ER.24H PO SCH (09:05)
[2021-06-26] MEDS: IPRATROPIUM-ALBUTEROL 3 ML NEB INHALATION SCH ×3 (09:22→20:31)
--- NOTE | 2021-06-26 11:44 | P.CNNES ---
History of Present Illness Consult date: 06/26/21 Reason for Consult: acute mental status changes History of Present Illness: The patient is an 80-year-old right-handed male who is seen in neurologic consultation on June 26, 2021, via telemedicine. History is obtained entirely from the chart, as the patient is unable to provide any history. When asked why he is in the hospital he states "I don't know". According to the nurse at the bedside, the patient was reportedly found unr esponsive, at his nursing care facility. He had previously been seen at approximately 3:25 PM, at his baseline. At the nursing facility, the patient's blood sugar was checked. He was found to be in the 100s. Patient normally is ambulatory, awake and alert. He was brought into the emergency department where he was found to be aphasic and poorly responsive. Apparently the aphasia resolved. The patient was admitted for further workup for possible TIA versus stroke. In the emergency Department patient was found to be completely aphasic. He was able to understand questions and follow instructions. CT scan of the brain was performed which revealed no signs of acute hemorrhage or infarct. CT angiogram of the head and neck revealed mild to moderate bilateral carotid bifurcation narrowing. The patient's INR was found to be subtherapeutic. While in the emergency department, the patient's expressive aphasia resolved. The patient did not receive IV TPA. According to the patient's nurse, at the bedside, the patient had another episode of expressive aphasia last night. This again resolved. The patient has a known history of chronic atrial fibrillation and COPD, on home oxygen. Per the patient's nurse, at the bedside, the patient's daughter reports that the patient does have some difficulty with his memory. The patient denies headache. He denies numbness tingling and weakness in his extremities. He denies difficulty with speech and swallowing. The patient denies visual changes. Review of Systems negative except for that noted in the history of present illness Past Medical History Past Medical History: Atrial Fibrillation, Cancer, COPD, GERD/Reflux, Hyperlipidemia, Hypertension, Pneumonia, Prostate Disorder Additional Past Medical History / Comment(s): COPD with an FEV1 of 45% of predicted, chronic atrial fibrillation, skin cancer involving the left cheek resected surgically, chronic back pain, chronic neck pain with radiculopathy and numbness and tingling involving the right upper extremity and the hand and the lower extremities, varicose veins bilaterally, hypertension, hyperlipidemia, history of childhood left eye injury with limited vision involving the left eye. 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 Past Anesthesia/Blood Transfusion Reactions: No Reported Reaction Past Psychological History: No Psychological Hx Reported Additional Psychological History / Comment(s): Patient is at [facility]. He has home oxygen but does not wear it. He has a nebulizer. Smoking Status: Unknown if ever smoked Past Alcohol Use History: Unable to Obtain Past Drug Use History: Unable to Obtain - Past Family History Father Additional Family Medical History / Comment(s): Father was a drinker. He at the age of 80yrs. Mother Family Medical History: No Reported History Additional Family Medical History / Comment(s): Mother was healthy and lived to b90yrs old. Daughter(s) Family Medical History: Cancer Additional Family Medical History / Comment(s): Nely had breast cancer. Brother(s) Family Medical History: Cancer Additional Family Medical History / Comment(s): Brother had melanoma skin cancer. Sister(s) Family Medical History: Cancer Additional Family Medical History / Comment(s): Sister had melanoma skin cancer. Medications and Allergies Home Medications Medication Instructions Recorded Confirmed Type Diltiazem HCl [Diltiazem HCl 24Hr 120 mg PO DAILY@0900 04/04/18 06/25/21 History ER (CD)] Acetaminophen Tab [Tylenol] 650 mg PO Q6HR PRN tab 07/07/20 06/25/21 Rx Albuterol Inhaler [Ventolin Hfa 1 puff INHALATION RT-Q4H PRN 08/26/20 06/25/21 H istory Inhaler] Ipratropium-Albuterol Nebulize 3 ml INHALATION RT-TID@06,,08/26/20 06/25/21 History [Duoneb 0.5 mg-3 mg/3 ml Soln] Tamsulosin [Flomax] 0.4 mg PO HS@2100 08/26/20 06/25/21 History Atorvastatin [Lipitor] 10 mg PO HS@2100 12/29/21 01/15/22 History Cholecalciferol [Vitamin D3 (25 50 mcg PO HS@209906/08/21 06/25/21 History Mcg = 1000 Iu)] Ipratropium-Albuterol Nebulize 3 ml INHALATION RT-Q4H PRN 06/08/21 06/25/21 History [Duoneb 0.5 mg-3 mg/3 ml Soln] Lactose-Reduced Food [Ensure Plus] 1 can PO BID@0900,209906/08/21 06/25/21 History Magnesium Hydroxide [Milk of 2,400 mg PO DAILY PRN 06/08/21 06/25/21 History Magnesia] Metoprolol Tartrate [Lopressor] 25 mg PO BID@0900,209906/08/21 06/25/21 History Multivitamins, Thera [Multivitamin 1 tab PO BID@0900,209906/08/21 06/25/21 History (formulary)] Na Phos,M-B/Na Phos,Di-Ba [Fleet 133 ml RECTAL DAILY PRN 06/08/21 06/25/21 History Adult] Warfarin Sodium 4 mg PO MOWEFR@1700 06/08/21 06/25/21 History Warfarin Sodium 6 mg PO SUTUTHSA@1600 06/08/21 06/25/21 History bisacodyL [Dulcolax] 10 mg RECTAL DAILY PRN 06/08/21 06/25/21 History Folic Acid 1 mg PO DAILY@0900 06/25/21 06/25/21 History Furosemide [Lasix] 20 mg PO DAILY@0600 06/25/21 06/25/21 History Pantoprazole [Protonix] 40 mg PO DAILY@0600 06/25/21 06/25/21 History Allergies Allergy/AdvReac Type Severity Reaction Status Date / Time No Known Allergies Allergy Verified 06/25/21 17:48 Physical Examination - Vital Signs Vital Signs: Vital Signs Temp Pulse Pulse Resp BP BP Pulse Ox 06/26/21 09:31 63 06/26/21 09:23 60 99 06/26/21 09:13 18 06/26/21 07:45 97.6 F 74 18 111/70 99 06/26/21 04:15 97.5 F L 66 18 104/69 98 06/26/21 02:00 68 18 06/25/21 21:25 68 06/25/21 21:15 70 06/25/21 19:50 18 06/25/21 19:34 97.5 F L 68 17 131/69 100 06/25/21 18:30 98 F 70 18 113/77 98 06/25/21 17:30 97.9 F 78 16 102/57 98 06/25/21 16:49 98 F 66 16 121/66 100 06/25/21 16:45 98 F 66 16 121/66 100 Intake and Output 06/25/21 06/26/21 06/26/21 22:59 06:59 14:59 Other: Voiding Method Urinal Urinal # Voids 1 3 Weight 79.379 kg 79.379 kg Gen.: The patient is reclining in the bed. He is a thin male. He is in no acute distress. HEENT: Head is atraumatic, normocephalic. Fundus not visualized. There is no s cleral icterus. Mucous membranes are moist. Neck: Without carotid bruits Heart: Regular rate and rhythm Extremities: Without edema Neurological examination Mental status: The patient is awake and alert. He is able to state his full name and date of . He incorrectly states his age to be "81". He is not oriented to the current year. He is able to follow instructions without difficulty. There is no anomia. There is no aphasia or dysarthria. Cranial nerves: Pupils are equal at 3 mm and reactive. Visual hankins are full to confrontation. Extraocular movements are intact. There is no nystagmus. Facial sensation is intact. There is no obvious facial asymmetry however the patient has a lot of facial hair which makes it slightly more challenging to discern facial drooping. Hearing is grossly intact. Uvula and palate are midline. Shoulder shrug is slightly diminished on the right. Tongue protrudes midline. Motor: Upper extremity strength is 5/5 bilaterally. There is mild weakness of right ankle plantar flexion. Sensation: Grossly intact to light touch throughout Coordination: There is right-sided dysmetria on finger to nose testing. Rapid alternating movements are intact. Deep tendon reflexes: 1+/4+ in the bilateral upper extremities. Bilateral patellar reflexes 3+/4+. Gait: Not assessed Results CT scan of the brain revealed no signs of acute hemorrhage or infarct CT angiogram of the head and neck revealed mild to moderate bilateral carotid bifurcation narrowing - Laboratory Findings CBC and BMP: 06/25/21 16:55 06/25/21 16:55 Abnormal Lab Findings: Abnormal Labs 06/25/21 06/25/21 06/25/21 16:55 16:55 17:42 PT 17.6 H INR 1.8 H BUN 22 H Glucose 128 H Urine Blood Moderate H Urine RBC 86 H Urine Bacteria Rare H Urine Mucus Rare H 06/26/21 07:10 PT 16.3 H INR 1.6 H BUN Glucose Urine Blood Urine RBC Urine Bacteria Urine Mucus Assessment and Plan Assessment: 1. Reported episode of unresponsiveness and expressive aphasia-consider left c erebral infarct/TIA in a patient with atrial fibrillation and subtherapeutic INR versus seizure and postictal state (less likely) 2. History of COPD on home oxygen 3. History of hypertension 4. History of hyperlipidemia Plan: 1. MRI of brain without gadolinium 2. Stroke order set has been placed: 2-D echocardiogram, lipid panel, hemoglobin A1c, PT, OT and speech therapy consultations 3. Continue warfarin with aim for INR to be between 2 and 3 Time with Patient: Greater than 30 (Spent 40 minutes with patient via telemedicine)
[2021-06-26 11:57] LABS: Basophils # (A) 0.04 X 10*3/uL (0.00-0.10); Basophils % (A) 0.4 %; Eosinophils # (A) 0.75 X 10*3/uL (0.04-0.35); Eosinophils % (A) 6.9 %; HCT 39.5 % (39.6-50.0); HGB 12.2 g/dL (13.0-17.0); Immature Grans, Automated 0.5 %; Lymphocytes # (A) 1.63 X 10*3/uL (0.90-5.00); MCH 27.9 pg (27.0-32.0); MCHC 30.9 g/dL (32.0-37.0); MCV 90.4 fL (80.0-97.0); Mean Platelet Volume 10.5 fL (9.5-12.2); Monocytes # (A) 1.25 X 10*3/uL (0.20-1.00); Monocytes % (A) 11.5 %; NRBC Per 100 WBC 0 /100 WBCS (0.0-0.0); Neutrophils # (A) 7.14 X 10*3/uL (1.80-7.70); Neutrophils % (A) 65.7 %; Platelet Count 266 X 10*3/uL (140-440); RBC 4.37 X 10*6/uL (4.40-5.60); RDW 14.3 % (11.5-14.5); WBC 10.86 X 10*3/uL (4.50-10.00)
[2021-06-26 12:55] LABS: Albumin 3.3 g/dL (3.8-4.9); Albumin/Globulin Ratio 1.11 (1.60-3.17); Anion Gap 9.4 mmol/L (10.00-18.00); BUN/Creat Ratio 17.6 Ratio (12.00-20.00); Blood Urea Nitrogen 17.6 mg/dL (9.0-27.0); Calcium 8.9 mg/dL (8.7-10.3); Carbon Dioxide 28.3 mmol/L (20.0-27.5); Non-African American GFR(CKD) 70.8 (60.0-200.0); Potassium 4.4 mmol/L (3.5-5.5); Total Bilirubin 0.5 mg/dL (0.30-1.20); Total Protein 6.3 g/dL (6.2-8.2)
[2021-06-26] MEDS ORDERED: NON FORMULARY DRUG (Warfarin Sodium [Warfarin Sodium] 6 MG Tablet) PO SCH (16:00)
--- NOTE | 2021-06-26 16:46 | PN ---
PROGRESS NOTE DATE OF SERVICE: 06/26/2021 This 80-year-old gentleman admitted with change in mental status and expressive dysesthesia also had history of atrial fibrillation. No chest pain. No palpitations. No fever. The patient continues to be mildly confused. PHYSICAL EXAMINATION: Pulse is 74, blood pressure 109/170, respiration 18, temperature 97.2, pulse ox 99% on room air. HEENT: Conjunctivae normal. Oral mucosa moist. NECK: No jugular venous distention. No lymph node enlargement. CARDIOVASCULAR: S1, S2, muffled. No S3, no S4, RESPIRATORY: Diminished breath sounds at the bases. A few scattered rhonchi. ABDOMEN: Soft, nontender. LEGS: No edema, no swelling. NERVOUS SYSTEM: Diffusely weak. LABS: WBC 10.36. UA noted. Covid-19 negative. ASSESSMENT: 1. Expressive dysphagia, possible acute TIA or acute stroke involving the left hemisphere. 2. History of atrial fibrillation, chronic. 3. Coumadin monitoring and subtherapeutic INR. 4. History of COPD with 45% FEV1. 5. Hypertension. 6. History of skin cancer. 7. History of chronic back pain, radiculopathy. 8. Hypertension. 9. Hyperlipidemia. 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 11.FULL CODE. RECOMMENDATIONS: Recommend to continue current management, continue symptomatic treatment. Otherwise, continue with antiplatelets. Closely follow with Neurology. Guarded prognosis. Further recommendations to follow. MMODL / HERNANDON: [id number] /
[2021-06-26] MEDS ORDERED: WARFARIN 7.5 MG TAB PO ONE (18:00)
[2021-06-27] MEDS: FUROSEMIDE 20 MG TAB PO SCH (05:09)
[2021-06-27] MEDS: PANTOPRAZOLE 40 MG TABLET PO SCH (05:09)
[2021-06-27 08:05] LABS: INR 1.9 (<1.2); Prothrombin Time 18.3 sec (9.0-12.0)
[2021-06-27] MEDS: IPRATROPIUM-ALBUTEROL 3 ML NEB INHALATION SCH ×3 (08:55→20:10)
[2021-06-27] MEDS: DILTIAZEM CD 120 MG CAP.ER.24H PO SCH (09:17)
[2021-06-27] MEDS: MULTIVITAMINS, THERA 1 EACH TAB PO SCH ×2 (09:17→21:23)
[2021-06-27] MEDS: FOLIC ACID 1 MG TAB PO SCH (09:17)
[2021-06-27] MEDS: METOPROLOL TARTRATE 25 MG TAB PO SCH ×2 (09:17→21:23)
[2021-06-27] MEDS: ASPIRIN 81 MG PO SCH (09:18)
--- NOTE | 2021-06-27 12:36 | ECHOF ---
Referral Reason:Thrombus MEASUREMENTS -------- HEIGHT: 182.9 cm WEIGHT: 74.8 kg BP: FINDINGS -------- Undetermined rhythm. Echo done 05/31: Limited echo no thrombus Overall left ventricular systolic function is low-normal with, an EF between 50 - 55 %. CONCLUSIONS -------- 1. Echo done 05/31: Limited echo , no thrombus 2. Overall left ventricular systolic function is low-normal with, an EF between 50 - 55 %. BARREL RIFLER HOOK: Reyna Benitez RDCS
--- NOTE | 2021-06-27 13:05 | P.PN ---
Subjective Progress Note Date: 06/27/21 I'm seeing the patient for the first time during this hospital admission for neurological management. Please refer to Dr. Solis's note for further details. Per patient nurse, no further neurological issues since she had him yesterday. Patient states he is doing well. Objective - Vital Signs Vital signs: Vital Signs Temp 97.7 F 06/27/21 07:00 Pulse 60 06/27/21 09:33 Resp 16 06/27/21 09:33 BP 120/62 06/27/21 09:15 Pulse Ox 95 06/27/21 07:00 Intake & Output 06/26/21 06/27/21 06/27/21 18:59 06:59 18:59 Intake Total 530 120 Balance 530 120 Intake: Oral 530 120 Other: Voiding Method Urinal Urinal # Voids 1 1 # Bowel Movements 1 - Exam Gen.: The patient is reclining in the bed. He is a thin male. He is in no acute distress. Neurological examination Mental status: The patient is awake and alert, oriented to self. He was able to state the year correctly on second try. He correctly stated the month. He stated today is his birthday. He stated he was in the hospital but could not tell me name. Patient is following simple commands. There is no aphasia. Cranial nerves: Pupils are equal at 3 mm and reactive. Visual hankins are full to confrontation. Extraocular movements are intact. There is no nystagmus. Facial sensation is intact. There is no obvious facial asymmetryShoulder shrug is slightly diminished on the right. Tongue protrudes midline. No dysarthria. Motor: Gait: Not assessed. Upper extremity strength is 5/5 bilaterally. There is mild weakness of right ankle plantar flexion. Sensation: Grossly intact to light touch throughout Coordination: There is right-sided dysmetria on finger to nose testing. Rapid alternating movements are intact. WORK-UP: CT scan of the brain revealed no signs of acute hemorrhage or infarct CT angiogram of the head and neck revealed mild to moderate bilateral carotid bifurcation narrowing Limited 2-D echo was reported as no thrombus. Overall left ventricle systolic function low normal with ejection fraction of 50-55%. Hemoglobin A1c 6.9. INR on presentation is 1.8 most current INR is 1.9 which is today. - Labs CBC & Chem 7: 06/26/21 07:10 06/26/21 07:10 Labs: Abnormal Lab Results - Last 24 Hours (Table) 06/26/21 06/27/21 06/27/21 Range/Units 07:10 07:17 07:17 PT 18.3 H (9.0-12.0) sec INR 1.9 H (<1.2) Carbon Dioxide 28.3 H (20.0-27.5) mmol/L Anion Gap 9.40 L (10.00-18.00) mmol/L Hemoglobin A1c 6.9 H (0.0-6.0) % Albumin 3.3 L (3.8-4.9) g/dL Albumin/Globulin Ratio 1.11 L (1.60-3.17) g/dL Assessment and Plan Assessment: Reported episode of transient unresponsiveness and expressive aphasia-consider left cerebral infarct/TIA in a patient with atrial fibrillation and subtherapeu tic INR versus seizure and postictal state (less likely)--per nurse no further neurological issues for past one day. Subtherapeutic INR DM with HbA1c 6.9 Atrial fibrillation and is on coumadin History of COPD on home oxygen History of hypertension History of hyperlipidemia Plan: Pending MR the brain and lipid panel. Recommend warfarin INR goal between 2-3. If the patient is having difficulty having her INR in the therapeutic range, consider switching to Eliquis from a neurological perspective. The patient is on aspirin 81 mg and from a neurology perspective does not need to be on the aspirin since the Coumadin has not failed since it was subtherapeutic. PT, OT and DIE REPAIRER FORGING are consulted Continue Neuro checks On cardiac monitoring We'll defer the rest the medical management to the primary team For DVT prophylaxis on Coumadin. Upon discharge the patient needs to follow-up with a neurologist as outpatient within 1-2 weeks. The plan is discussed with the patient and her nurse. Otherwise no further work-up. Mart Gaston M.D. Neuro-Hospitalist. Time with Patient: Less than 30
[2021-06-27 13:27] LABS: Chol/HDL Ratio 3.16 Ratio; LDL Cholesterol,Calculated 68.1 mg/dL (0.0-131.0); VLDL Calculation 14.62 mg/dL (5.00-40.00)
[2021-06-27] MEDS ORDERED: NON FORMULARY DRUG (Warfarin Sodium [Warfarin Sodium] 4 MG Tablet) PO SCH (17:00)
[2021-06-27] MEDS ORDERED: WARFARIN 3 MG TAB PO ONE (18:00)
[2021-06-27] MEDS: CHOLECALCIFEROL 25 MCG (1000 IU) TABLET PO SCH (21:23)
[2021-06-27] MEDS: ATORVASTATIN 20 MG TAB PO SCH (21:23)
[2021-06-27] MEDS: TAMSULOSIN 0.4 MG CAP.ER.24H PO SCH (21:23)
--- NOTE | 2021-06-28 01:34 | P.PN ---
Subjective Progress Note Date: 06/27/21 This is a 81-year-old male recently admitted with change in mental status and expressive dysphasia and is being closely monitored. Patient is chronically on coumadin and aspirin for chronic atrial fibrillation and is sub-therapeutic. INR is 1.9 today and pharmacy dosing. Neurology following and mri of the brain is pending. Other neurologic workup complete and patient will need outpatient neurology evaluation. Patient is afebrile and denies any chest pain or shortness of breath. Patient continues with confusion although this appears baseline. Labs: INR is 1.9, hemoglobin A1c is 6.9, cholesterol panel within normal limits Review of systems: Constitutional: No reports of fatigue, fever, or chills Cardiovascular: No reports of chest pain or palpitations Respiratory: No reports of shortness of breath or cough GI: No reports of nausea, vomiting, or diarrhea : No reports of dysuria or retention Neurovascular: No reports of weakness or numbness All medications have been reviewed Active Medications Acetaminophen (Acetaminophen Tab 325 Mg Tab) 650 mg PO Q6HR PRN PRN Reason: Mild Pain or Fever >= 100.5 Albuterol/Ipratropium (Ipratropium-Albuterol 3 Ml Neb) 3 ml INHALATION RT- TID@,, [facility] Last Admin: 06/27/21 12:12 Dose: Not Given Documented by: Albuterol/Ipratropium (Ipratropium-Albuterol 3 Ml Neb) 3 ml INHALATION RT-Q4H PRN PRN Reason: Shortness Of Breath Aspirin (Aspirin 81 Mg) 81 mg PO DAILY [facility] Last Admin: 06/27/21 09:18 Dose: 81 mg Documented by: Atorvastatin Calcium (Atorvastatin 20 Mg Tab) 20 mg PO HS [facility] Last Admin: 06/26/21 20:39 Dose: 20 mg Documented by: Bisacodyl (Bisacodyl 10 Mg Supp) 10 mg RECTAL DAILY PRN PRN Reason: Constipation Cholecalciferol (Cholecalciferol 25 Mcg (1000 Iu) Tablet) 50 mcg PO HS@2100 [facility] Last Admin: 06/26/21 20:39 Dose: 50 mcg Documented by: Diltiazem HCl (Diltiazem Cd 120 Mg Cap.Er.24h) 120 mg PO DAILY@0900 [facility] Last Admin: 06/27/21 09:17 Dose: 120 mg Documented by: Folic Acid (Folic Acid 1 Mg Tab) 1 mg PO DAILY@09 [facility] Last Admin: 06/27/21 09:17 Dose: 1 mg Documented by: Furosemide (Furosemide 20 Mg Tab) 20 mg PO DAILY@06 [facility] Last Admin: 06/27/21 05:09 Dose: 20 mg Documented by: Magnesium Hydroxide (Magnesium Hydroxide 2,400 Mg/10 Ml Cup) 2,400 mg PO DAILY PRN PRN Reason: Constipation Metoprolol Tartrate (Metoprolol Tartrate 25 Mg Tab) 25 mg PO BID@899,2099 [facility] Last Admin: 06/26/21 20:39 Dose: 25 mg Documented by: Miscellaneous Information (Warfarin Per Pharmacy) 0 each MISCELLANE DIRECTED PRN PRN Reason: PHARMACY DOSING WARFARIN Multivitamins (Multivitamins, Thera 1 Each Tab) 1 each PO BID@899,2099 [facility] Last Admin: 06/27/21 09:17 Dose: 1 each Documented by: Pantoprazole Sodium (Pantoprazole 40 Mg Tablet) 40 mg PO DAILY@06 [facility] Last Admin: 06/27/21 05:09 Dose: 40 mg Documented by: Sodium Biphosphate/Sodium Phosphate (Na Phos,M-B/Na Phos,Di-Ba 133 Ml Enema) 133 ml RECTAL DAILY PRN PRN Reason: Constipation Tamsulosin HCl (Tamsulosin 0.4 Mg Cap.Er.24h) 0.4 mg PO HS@2099 [facility] Last Admin: 06/26/21 20:39 Dose: 0.4 mg Documented by: Warfarin Sodium (Warfarin 3 Mg Tab) 6 mg PO ONCE@1800 ONE Stop: 06/27/21 18:01 Physical Exam: Gen: This is 81-year-old male, alert and oriented 2-3. Temp is 97.7F, pulse is 60, respirations are 16, arterial blood pressure is 104/67, oxygen saturation is 95% on 2 L via nasal cannula HEENT: Head is atraumatic, normocephalic. Pupils equal, round. Sclerae is anicteric. NECK: Supple. No JVD. No lymphadenopathy. No thyromegaly. LUNGS: Diminished breath sounds bilaterally with mild scattered rhonchi noted. No intercostal retractions. HEART: S1, S2 are muffled ABDOMEN: Soft. Bowel sounds are present. No masses. No tenderness. EXTREMITIES: No pedal edema. No calf tenderness. NEUROLOGICAL: Patient is awake, alert and oriented 3, no focal deficit noted Assessment: Expressive dysphasia, possible acute TIA or acute stroke involving the left hemisphere History of atrial fibrillation, chronic Coumadin monitoring and subtherapeutic INR history of COPD with 45% FEV1 hypertension History of skin cancer History of chronic back pain, radiculopathy Hypertension Hyperlipidemia History of facial carcinoma No code Plan: Recommend to continue with current medications and follow along closely with multiple medical consultations. Cardiology evaluated the patient and 2d echo shows overall lv systolic function is low to normal with ef of 50-55%. brain MRI ordered and pending. Neurology following and recommending outpatient follow up. Patient is continued on aspirin and plavix. Patient is to return to [facility] once stabilized and discharged. Recommend repeat labs in the morning to monitor INR. Again due to multiple complex medical issues prognosis is guarded. MRI brain pending. Anticipate discharge in 24 hours to F. Objective - Vital Signs Vital signs: Vital Signs Temp 97.7 F 06/27/21 15:00 Pulse 50 L 06/27/21 15:00 Resp 18 06/27/21 15:00 BP 110/57 06/27/21 15:00 Pulse Ox 98 06/27/21 15:00 Intake & Output 06/26/21 06/27/21 06/27/21 18:59 06:59 18:59 Intake Total 530 360 Balance 530 360 Intake: Oral 530 360 Other: Voiding Method Urinal Urinal # Voids 1 1 1 # Bowel Movements 1 - Labs CBC & Chem 7: 06/26/21 07:10 06/26/21 07:10 Labs: Abnormal Lab Results - Last 24 Hours (Table) 06/27/21 06/27/21 06/27/21 Range/Units 07:17 07:17 07:17 PT 18.3 H (9.0-12.0) sec INR 1.9 H (<1.2) Hemoglobin A1c 6.9 H (0.0-6.0) % HDL Cholesterol 38.30 L (40.00-60.00) mg/dL
[2021-06-28] MEDS: FUROSEMIDE 20 MG TAB PO SCH (05:20)
[2021-06-28] MEDS: PANTOPRAZOLE 40 MG TABLET PO SCH (05:20)
[2021-06-28 07:57] LABS: INR 2.1 (<1.2); Prothrombin Time 20.8 sec (9.0-12.0)
[2021-06-28 08:05] VITALS: BP 101/59; RESP 16; TEMP 97.6
[2021-06-28] MEDS: IPRATROPIUM-ALBUTEROL 3 ML NEB INHALATION SCH ×2 (08:16→11:42)
[2021-06-28] MEDS: MULTIVITAMINS, THERA 1 EACH TAB PO SCH (08:37)
[2021-06-28] MEDS: ASPIRIN 81 MG PO SCH (08:37)
[2021-06-28] MEDS: FOLIC ACID 1 MG TAB PO SCH (08:37)
[2021-06-28] MEDS: DILTIAZEM CD 120 MG CAP.ER.24H PO SCH (08:54)
[2021-06-28] MEDS: METOPROLOL TARTRATE 25 MG TAB PO SCH (08:54)
--- NOTE | 2021-06-28 11:35 | P.DS ---
Providers Date of admission: 06/25/21 18:17 Expected date of discharge: 06/28/21 Attending physician: Osmin King MD Consults: 06/25/21 17:31 Consult Physician Urgent Consulting Provider: Katelyn Solis Consult Reason/Comments: aphasia, altered mental status Do you want consulting provider notified?: Yes Primary care physician: Johnathan Bustillos Hospital Course: Final diagnosis Expressive dysphasia, possible acute TIA or acute stroke involving the left hemisphere History of atrial fibrillation, chronic Possible history of chronic congestive heart failure with diastolic dysfunction, with preserved EF and most recent EF shows 50-55% Coumadin monitoring and subtherapeutic INR history of COPD with 45% FEV1, with hypoxic respiratory failure and maintained on 2 L oxygen outpatient via nasal cannula, not in acute exacerbation hypertension History of skin cancer History of chronic back pain, radiculopathy Hypertension Hyperlipidemia History of facial carcinoma No code Discharge disposition Patient is being discharged in a stable condition with guarded prognosis to [facility] Patient will follow-up with Dr. Bustillos in the outpatient setting upon discharge. Patient is to continue with aspirin and Coumadin with close outpatient monitoring of PT/INR. Patient will need outpatient neurology follow-up in 1-2 weeks and clearance from cardiology and orthopedics for possible MRI of the brain in the outpatient setting. Total time taken is greater than 35 minutes. Hospital course This is an 81-year-old male who was recently admitted with change in mental st atus with expressive dysphasia and being closely monitored. Patient had 2 episodes of expressive dysphasia which resolved and was evaluated by neurology and underwent neurological workup with CT of the brain showing stable chronic changes with no evidence of acute intracranial hemorrhage midline shift or mass effect and CT angios of the head and neck shows no major vessel occlusion aneurysm or dissection with mild to moderate bilateral carotid bifurcation narrowing. She is maintained on statin and aspirin and Coumadin and will continue and patient again has been evaluated by neurology commending outpatient follow-up with neurologist in 1-2 weeks and resources provided. Brain MRI was ordered although patient has a past medical history of screws and plates for previous compression fractures of the spine and family unaware or unsure of any type of clotting filters that were inserted. Patient will need cardiac clearance and recommend outpatient MRI of the brain and neurology follow-up in 1-2 weeks. Patient was maintained on neurochecks with no reported episodes of further dysphasia noted. Patient was evaluated by speech and recommending to continue with heart healthy diet. Patient working with physical therapy and is weak and will be returning to [facility] on the [place] and recommend continued PT/OT therapy. Recommend repeat CBC, BMP, PT/INR in 1-2 days. INR was therapeutic at 2.1 today and will continue with Coumadin. Patient normally wears 2 L of oxygen although needs continuous reminding to keep the oxygen on and recommend to continue with breathing inhalational treatments. Currently no reports of chest pain, shortness of breath, or palpitations. Patient is afebrile. No reports of nausea or vomiting and patient is tolerating diet. Patient will be going to [facility] the [place] today. Physical Exam: Gen: This is 81-year-old male, alert and oriented 2-3. Temp is 97.6F, pulse is 62, respirations are 16, blood pressure is 101/59, oxygen saturation is 97% on 2 L via nasal cannula HEENT: Head is atraumatic, normocephalic. Pupils equal, round. Sclerae is anicteric. NECK: Supple. No JVD. No lymphadenopathy. No thyromegaly. LUNGS: Diminished breath sounds bilaterally with some mild scattered rhonchi noted. No intercostal retractions. HEART: S1, S2 are muffled ABDOMEN: Soft. Bowel sounds are present. No masses. No tenderness. EXTREMITIES: No pedal edema. No calf tenderness. NEUROLOGICAL: Patient is awake, alert and oriented 2-3, diffusely weak Please refer to medication reconciliation sheet for a list of medications. Patient Condition at Discharge: Stable Plan - Discharge Summary New Discharge Prescriptions: New Aspirin 81 mg PO DAILY tab Atorvastatin [Lipitor] 20 mg PO HS tab Continue Diltiazem HCl [Diltiazem HCl 24Hr ER (CD)] 120 mg PO DAILY@0900 Acetaminophen Tab [Tylenol] 650 mg PO Q6HR PRN tab PRN Reason: Mild Pain Or Fever >= 100.5 Albuterol Inhaler [Ventolin Hfa Inhaler] 1 puff INHALATION RT-Q4H PRN PRN Reason: Shortness Of Breath Ipratropium-Albuterol Nebulize [Duoneb 0.5 mg-3 mg/3 ml Soln] 3 ml INHALATION RT-TID@06,14,22 Tamsulosin [Flomax] 0.4 mg PO HS@2100 Magnesium Hydroxide [Milk of Magnesia] 2,400 mg PO DAILY PRN PRN Reason: Constipation Ipratropium-Albuterol Nebulize [Duoneb 0.5 mg-3 mg/3 ml Soln] 3 ml INHALATION RT-Q4H PRN PRN Reason: Shortness Of Breath Multivitamins, Thera [Multivitamin (formulary)] 1 tab PO BID@0900,2099 Lactose-Reduced Food [Ensure Plus] 1 can PO BID@0900,2100 Cholecalciferol [Vitamin D3 (25 Mcg = 1000 Iu)] 50 mcg PO HS@2100 Warfarin Sodium 6 mg PO SUTUTHSA@1600 Warfarin Sodium 4 mg PO MOWEFR@1700 Metoprolol Tartrate [Lopressor] 25 mg PO BID@0900,2100 Furosemide [Lasix] 20 mg PO DAILY@0600 bisacodyL [Dulcolax] 10 mg RECTAL DAILY PRN PRN Reason: Constipation Na Phos,M-B/Na Phos,Di-Ba [Fleet Adult] 133 ml RECTAL DAILY PRN PRN Reason: Constipation Folic Acid 1 mg PO DAILY@0900 Pantoprazole [Protonix] 40 mg PO DAILY@0600 Discontinued Atorvastatin [Lipitor] 10 mg PO HS@2100 Discharge Medication List Diltiazem HCl [Diltiazem HCl 24Hr ER (CD)] 120 mg PO DAILY@0900 04/04/18 [History] Acetaminophen Tab [Tylenol] 650 mg PO Q6HR PRN tab 07/07/20 [Rx] Albuterol Inhaler [Ventolin Hfa Inhaler] 1 puff INHALATION RT-Q4H PRN 08/26/20 [History] Ipratropium-Albuterol Nebulize [Duoneb 0.5 mg-3 mg/3 ml Soln] 3 ml INHALATION RT-TID@06,14,08/26/20 [History] Tamsulosin [Flomax] 0.4 mg PO HS@209908/26/20 [History] Cholecalciferol [Vitamin D3 (25 Mcg = 1000 Iu)] 50 mcg PO HS@2100 06/08/21 [History] Ipratropium-Albuterol Nebulize [Duoneb 0.5 mg-3 mg/3 ml Soln] 3 ml INHALATION RT-Q4H PRN 06/08/21 [History] Lactose-Reduced Food [Ensure Plus] 1 can PO BID@0900,209906/08/21 [History] Magnesium Hydroxide [Milk of Magnesia] 2,400 mg PO DAILY PRN 06/08/21 [History] Metoprolol Tartrate [Lopressor] 25 mg PO BID@0900,2100 06/08/21 [History] Multivitamins, Thera [Multivitamin (formulary)] 1 tab PO BID@0900,209906/08/21 [History] Na Phos,M-B/Na Phos,Di-Ba [Fleet Adult] 133 ml RECTAL DAILY PRN 06/08/21 [History] Warfarin Sodium 4 mg PO MOWEFR@1700 06/08/21 [History] Warfarin Sodium 6 mg PO SUTUTHSA@1600 06/08/21 [History] bisacodyL [Dulcolax] 10 mg RECTAL DAILY PRN 06/08/21 [History] Folic Acid 1 mg PO DAILY@0900 06/25/21 [History] Furosemide [Lasix] 20 mg PO DAILY@0600 06/25/21 [History] Pantoprazole [Protonix] 40 mg PO DAILY@0600 06/25/21 [History] Aspirin 81 mg PO DAILY tab 06/28/21 [Rx] Atorvastatin [Lipitor] 20 mg PO HS tab 06/28/21 [Rx] Follow up Appointment(s)/Referral(s): Johnathan Bustillos MD [Primary Care Provider] - 1-2 days Saba Boyd MD [Medical Doctor] - 1 Week Ambulatory/Diagnostic Orders: Complete Blood Count w/diff [LAB.AMB] Time Frame: 2 Days, Location: [facility] Activity/Diet/Wound Care/Special Instructions: Patient is going to [facility] on the [place] Activity as tolerated Continue current medications Follow-up primary care provider on discharge Recommend repeat labs of CBC, BMP, PT/INR and close Coumadin monitoring with PT/INR, INR is 2.1 today Continue with breathing inhalational treatments and 2 L of oxygen via nasal cannula Patient will need neurology follow-up in the outpatient setting in 1-2 weeks and outpatient MRI brain if patient tolerates and cleared by cardiology of no clotting filter or other device and patient also has screws and plates performed by orthopedic services Patient to continue with heart healthy diet Discharge Disposition: TRANSFER TO SNF/ECF
[2021-06-28 11:45] VITALS: PULSE 68
[2021-06-28] MEDS ORDERED: WARFARIN 3 MG TAB PO ONE (18:00)
== END 2021-06-28 13:35 | DRG 65 ==
LOC: EC 16:39 → OBSVTOIN 18:17 → EEVIPCON 18:17 → 6NMEDSUR 18:17 → INTOOBSV 06-26 10:46 → OBSVTOIN 06-26 10:46
PROVIDERS: ADMIT Internal Medicine; ATTEND Internal Medicine
DX: I63.9 Cerebral infarction, unspecified (principal); I48.20 Chronic atrial fibrillation, unspecified; I50.32 Chronic diastolic (congestive) heart failure; J96.11 Chronic respiratory failure with hypoxia; E11.9 Type 2 diabetes mellitus without complications; R47.01 Aphasia; G89.29 Other chronic pain; M54.10 Radiculopathy, site unspecified; Z20.822 Contact with and (suspected) exposure to COVID-19; E78.5 Hyperlipidemia, unspecified; I11.0 Hypertensive heart disease with heart failure; J44.9 Chronic obstructive pulmonary disease, unspecified; R13.10 Dysphagia, unspecified; R47.02 Dysphasia; R79.1 Abnormal coagulation profile; Z79.01 Long term (current) use of anticoagulants; Z79.899 Other long term (current) drug therapy; Z80.3 Family history of malignant neoplasm of breast; Z80.8 Family history of malignant neoplasm of other organs or systems; Z85.828 Personal history of other malignant neoplasm of skin; Z99.81 Dependence on supplemental oxygen; I65.23 Occlusion and stenosis of bilateral carotid arteries
CPT/HCPCS: 36415; 70450; 70496; 70498; 71045; 80053; 80061; 80306; 81001; 83036; 84484; 85025; 85610; 85730; 87635; 93005; 93308; 94640; 94760; 99291

== ENCOUNTER 2021-07-11 11:22 | Inpatient (IN) | payer MEDICARE, OTHER ==
--- NOTE | 2021-07-11 12:07 | ED ---
General Adult HPI - General Chief complaint: Shortness of Breath Stated complaint: ALEJANDRO Time Seen by Provider: 07/11/21 11:24 Source: patient, EMS Mode of arrival: EMS Limitations: altered mental status - History of Present Illness Initial comments: Dictation was produced using Movie[employer] dictation software. please excuse any grammatical, word or spelling errors. Chief Complaint: 81-year-old DO NOT RESUSCITATE patient presents from halfway for chest pain and shortness of breath. History of Present Illness: Is a 81-year-old male who was sent in from halfway. Patient is DO NOT RESUSCITATE. Patient is a poor historian but has been complaining of chest pain or shortness of breath recently. Patient states that he has pain to his substernal chest its worse with coughing. He has history of chronic lung disease. He's been have noisy breathing. States it is worse with deep inspiration. Not radiating. Unable to obtain review of systems secondary to patient's baseline mental status PHYSICAL EXAM: General Impression: Alert and oriented x3/4, not in acute distress HEENT: Normocephalic atraumatic, extra-ocular movements intact, pupils equal and reactive to light bilaterally, mucous membranes moist. Cardiovascular: Heart regular rate and rhythm Chest: Mild tachypnea, diffuse rhonchi with inspiration and expiration, mild palpatory tenderness to the substernal chest Abdomen: abdomen soft, non-tender, non-distended, no organomegaly Musculoskeletal: Pulses present and equal in all extremities, no peripheral edema Motor: no focal deficits noted Neurological: CN II-XII grossly intact, no focal motor or sensory deficits noted Skin: Intact with no visualized rashes Psych: Normal affect and mood ED course: 81-year-old male presents to the emergency department from halfway for chest pain shortness of breath. Patient is a poor historian and unable to provide detailed history of present illness. All that was provided was EMS report saying the patient's having shortness of breath and chest pain. Is able to provide some history states that he has chest pain or shortness of breath. He has tachypneic with 30 with positive lung auscultatory findings. Clinical presentation is consistent with atypical chest pain with typical features. Chart review was performed. Patient has multiple comorbidities. He is on anti- coagulation medications. Patient is recently admitted to the hospital middle of this month with diagnosis of dysphagia versus acute stroke. EKG interpretation: Ventricular rate a 99, A. fib, QRS 80, QTc 449. No [place] prolongation, no QTC prolongation, no ST or T-wave changes noted. EKG compared to June 25 2021 showing no changes. Overall, this EKG is unremarkable Laboratory evaluation obtained. CBC within acceptable limits. Coag panel shows INR 4.6, metabolic panel is unremarkable. Coag test is negative. Chest x-ray shows mild interstitial infiltrate in the right upper lobe. Patient's medications are reviewed. Is currently on antibiotics. Serial troponins is negative. Patient reevaluated at the bedside. After breathing treatment and steroids he is significantly improved. Respiratory rate is normal. And he does not appear dyspneic. Patient has negative serial troponins. Chest x-ray is unremarkable. He is on anticoagulation medications. Patient will be discharge back to [facility]. - Related Data Home Medications Medication Instructions Recorded Confirmed Diltiazem HCl [Diltiazem HCl 24Hr 120 mg PO DAILY@0900 04/04/18 07/11/21 ER (CD)] Albuterol Inhaler [Ventolin Hfa 1 puff INHALATION RT-Q4H PRN 08/26/20 07/11/21 Inhaler] Ipratropium-Albuterol Nebulize 3 ml INHALATION RT-TID@,,08/26/20 07/11/21 [Duoneb 0.5 mg-3 mg/3 ml Soln] Tamsulosin [Flomax] 0.4 mg PO HS@209908/26/20 07/11/21 Cholecalciferol [Vitamin D3 (25 50 mcg PO HS@209906/08/21 07/11/21 Mcg = 1000 Iu)] Ipratropium-Albuterol Nebulize 3 ml INHALATION RT-Q4H PRN 06/08/21 07/11/21 [Duoneb 0.5 mg-3 mg/3 ml Soln] Lactose-Reduced Food [Ensure Plus] 240 ml PO DAILY 06/08/21 07/11/21 Metoprolol Tartrate [Lopressor] 25 mg PO BID@0900,2100 06/08/21 07/11/21 Multivitamins, Thera [Multivitamin 1 tab PO BID@0900,209906/08/21 07/11/21 (formulary)] Warfarin Sodium 4 mg PO MOWEFR@1700 06/08/21 07/11/21 Warfarin Sodium 6 mg PO SUTUTHSA@1700 06/08/21 07/11/21 Folic Acid 1 mg PO DAILY@0900 06/25/21 07/11/21 Furosemide [Lasix] 20 mg PO DAILY@0600 06/25/21 07/11/21 Pantoprazole [Protonix] 40 mg PO DAILY@0600 06/25/21 07/11/21 Cefuroxime Axetil [Ceftin] 500 mg PO BID@0900,2100 07/11/21 07/11/21 Depo-Medrol 80mg/Ml 80 mg INJ ONCE 07/11/21 07/11/21 Z-Guard 1 applic TOPICAL BID 07/11/21 07/11/21 cefTRIAXone [Rocephin] 1 gm IVPB ONCE 07/11/21 07/11/21 predniSONE See Taper PO DAILY 07/11/21 07/11/21 Previous Rx's Medication Instructions Recorded Acetaminophen Tab [Tylenol] 650 mg PO Q6HR PRN tab 07/07/20 Aspirin 81 mg PO DAILY tab 06/28/21 Atorvastatin [Lipitor] 20 mg PO HS tab 06/28/21 Allergies Allergy/AdvReac Type Severity Reaction Status Date / Time No Known Allergies Allergy Verified 07/11/21 13:05 Review of Systems ROS Statement: Those systems with pertinent positive or pertinent negative responses have been documented in the HPI. ROS Other: All systems not noted in ROS Statement are negative. Past Medical History Past Medical History: Atrial Fibrillation, Cancer, COPD, GERD/Reflux, Hyperlipidemia, Hypertension, Pneumonia, Prostate Disorder Additional Past Medical History / Comment(s): COPD with an FEV1 of 45% of predicted, chronic atrial fibrillation, skin cancer involving the left cheek resected surgically, chronic back pain, chronic neck pain with radiculopathy and numbness and tingling involving the right upper extremity and the hand and the lower extremities, varicose veins bilaterally, hypertension, hyperlipidemia, history of childhood left eye injury with limited vision involving the left eye. 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 Past Anesthesia/Blood Transfusion Reactions: No Reported Reaction Past Psychological History: No Psychological Hx Reported Smoking Status: Unknown if ever smoked Past Alcohol Use History: Unable to Obtain Past Drug Use History: Unable to Obtain - Past Family History Father Additional Family Medical History / Comment(s): Father was a drinker. He at the age of 80yrs. Mother Family Medical History: No Reported History Additional Family Medical History / Comment(s): Mother was healthy and lived to b90yrs old. Daughter(s) Family Medical History: Cancer Additional Family Medical History / Comment(s): Nely had breast cancer. Brother(s) Family Medical History: Cancer Additional Family Medical History / Comment(s): Brother had melanoma skin cancer. Sister(s) Family Medical History: Cancer Additional Family Medical History / Comment(s): Sister had melanoma skin cancer. General Exam Limitations: altered mental status Course Vital Signs 07/11/21 07/11/21 07/11/21 11:23 11:50 13:19 Temperature 97.5 F L Pulse Rate 113 H 76 Respiratory 30 H 28 H 18 Rate Blood Pressure 142/86 120/64 O2 Sat by Pulse 95 94 L Oximetry Medical Decision Making - Lab Data Result diagrams: 07/11/21 11:57 07/11/21 11:57 Lab Results 07/11/21 07/11/21 07/11/21 Range/Units 11:55 11:57 11:57 WBC 12.0 H (3.8-10.6) k/uL RBC 4.78 (4.30-5.90) m/uL Hgb 13.8 (13.0-17.5) gm/dL Hct 43.0 (39.0-53.0) % MCV 90.0 (80.0-100.0) fL MCH 28.8 (25.0-35.0) pg MCHC 32.1 (31.0-37.0) g/dL RDW 14.3 (11.5-15.5) % Plt Count 299 (150-450) k/uL MPV 7.7 Neutrophils % 70 % Lymphocytes % 18 % Monocytes % 7 % Eosinophils % 3 % Basophils % 0 % Neutrophils # 8.4 H (1.3-7.7) k/uL Lymphocytes # 2.2 (1.0-4.8) k/uL Monocytes # 0.9 (0-1.0) k/uL Eosinophils # 0.4 (0-0.7) k/uL Basophils # 0.0 (0-0.2) k/uL PT 46.0 H (9.0-12.0) sec INR 4.6 H (<1.2) APTT 29.7 (22.0-30.0) sec Sodium (137-145) mmol/L Potassium (3.5-5.1) mmol/L Chloride (98-107) mmol/L Carbon Dioxide (22-30) mmol/L Anion Gap mmol/L BUN (9-20) mg/dL Creatinine (0.66-1.25) mg/dL Est GFR (CKD-EPI)AfAm (>60 ml/min/1.73 sqM) Est GFR (CKD-EPI)NonAf (>60 ml/min/1.73 sqM) Glucose (74-99) mg/dL Calcium (8.4-10.2) mg/dL Troponin I (0.000-0.034) ng/mL NT-Pro-B Natriuret Pep pg/mL Coronavirus (PCR) Not Detected (Not Detectd) 07/11/21 07/11/21 07/11/21 Range/Units 11:57 11:57 11:57 WBC (3.8-10.6) k/uL RBC (4.30-5.90) m/uL Hgb (13.0-17.5) gm/dL Hct (39.0-53.0) % MCV (80.0-100.0) fL MCH (25.0-35.0) pg MCHC (31.0-37.0) g/dL RDW (11.5-15.5) % Plt Count (150-450) k/uL MPV Neutrophils % % Lymphocytes % % Monocytes % % Eosinophils % % Basophils % % Neutrophils # (1.3-7.7) k/uL Lymphocytes # (1.0-4.8) k/uL Monocytes # (0-1.0) k/uL Eosinophils # (0-0.7) k/uL Basophils # (0-0.2) k/uL PT (9.0-12.0) sec INR (<1.2) APTT (22.0-30.0) sec Sodium 139 (137-145) mmol/L Potassium 4.2 (3.5-5.1) mmol/L Chloride 102 (98-107) mmol/L Carbon Dioxide 29 (22-30) mmol/L Anion Gap 8 mmol/L BUN 31 H (9-20) mg/dL Creatinine 0.92 (0.66-1.25) mg/dL Est GFR (CKD-EPI)AfAm >90 (>60 ml/min/1.73 sqM) Est GFR (CKD-EPI)NonAf 78 (>60 ml/min/1.73 sqM) Glucose 131 H (74-99) mg/dL Calcium 9.0 (8.4-10.2) mg/dL Troponin I <0.012 (0.000-0.034) ng/mL NT-Pro-B Natriuret Pep 864 pg/mL Coronavirus (PCR) (Not Detectd) 07/11/21 Range/Units 14:27 WBC (3.8-10.6) k/uL RBC (4.30-5.90) m/uL Hgb (13.0-17.5) gm/dL Hct (39.0-53.0) % MCV (80.0-100.0) fL MCH (25.0-35.0) pg MCHC (31.0-37.0) g/dL RDW (11.5-15.5) % Plt Count (150-450) k/uL MPV Neutrophils % % Lymphocytes % % Monocytes % % Eosinophils % % Basophils % % Neutrophils # (1.3-7.7) k/uL Lymphocytes # (1.0-4.8) k/uL Monocytes # (0-1.0) k/uL Eosinophils # (0-0.7) k/uL Basophils # (0-0.2) k/uL PT (9.0-12.0) sec INR (<1.2) APTT (22.0-30.0) sec Sodium (137-145) mmol/L Potassium (3.5-5.1) mmol/L Chloride (98-107) mmol/L Carbon Dioxide (22-30) mmol/L Anion Gap mmol/L BUN (9-20) mg/dL Creatinine (0.66-1.25) mg/dL Est GFR (CKD-EPI)AfAm (>60 ml/min/1.73 sqM) Est GFR (CKD-EPI)NonAf (>60 ml/min/1.73 sqM) Glucose (74-99) mg/dL Calcium (8.4-10.2) mg/dL Troponin I <0.012 (0.000-0.034) ng/mL NT-Pro-B Natriuret Pep pg/mL Coronavirus (PCR) (Not Detectd) Disposition Clinical Impression: COPD exacerbation, Chest pain Disposition: HOME SELF-CARE Condition: Fair Instructions (If sedation given, give patient instructions): Dyspnea (ED) Is patient prescribed a controlled substance at d/c from ED?: No Referrals: Johnathan Bustillos MD [Primary Care Provider] - 1-2 days
--- NOTE | 2021-07-11 12:17 | XR ---
EXAMINATION TYPE: XR chest 1V portable DATE OF EXAM: 07/11/2021 Comparison: 06/25/2021 Clinical History: 81 year-old male shortness of breath, dyspnea Findings: Heart upper limits of normal in size. Mild elongation/tortuosity thoracic aorta. Hyperinflation. Patc hy interstitial opacity remains in the right upper lobe. Interstitial changes at the bilateral lower lungs show improvement from prior exam. No significant pleural effusion. ACDF hardware. Impression: COPD. Mild interstitial infiltrate in the right upper lobe. Improving interstitial infiltrates in the lower lungs.
[2021-07-11 12:37] LABS: African American GFR (CKD) >90 (>60 ml/min/1.73 sqM); Anion Gap 8 mmol/L; Blood Urea Nitrogen 31 mg/dL (9-20); Carbon Dioxide 29 mmol/L (22-30); Chloride 102 mmol/L (98-107); Glucose 131 mg/dL (74-99); INR 4.6 (<1.2); Non-African American GFR(CKD) 78 (>60 ml/min/1.73 sqM); Partial Thromboplastin Time 29.7 sec (22.0-30.0); Potassium 4.2 mmol/L (3.5-5.1); Sodium 139 mmol/L (137-145)
[2021-07-11 12:41] LABS: Basophils % (A) 0 %; Eosinophils # (A) 0.4 k/uL (0-0.7); Eosinophils % (A) 3 %; HGB 13.8 gm/dL (13.0-17.5); Lymphocytes # (A) 2.2 k/uL (1.0-4.8); Lymphocytes % (A) 18 %; MCH 28.8 pg (25.0-35.0); MCHC 32.1 g/dL (31.0-37.0); Mean Platelet Volume 7.7; Monocytes # (A) 0.9 k/uL (0-1.0); Monocytes % (A) 7 %; Neutrophils # (A) 8.4 k/uL (1.3-7.7); Neutrophils % (A) 70 %; Platelet Count 299 k/uL (150-450); RBC 4.78 m/uL (4.30-5.90); RDW 14.3 % (11.5-15.5)
[2021-07-11] MEDS ORDERED: IPRATROPIUM-ALBUTEROL 3 ML NEB INHALATION STA ×2 (13:29→17:23)
[2021-07-11] MEDS ORDERED: AZITHROMYCIN 500 MG in SODIUM CHLORIDE 0.9% 250 ML IVPB STA (13:29)
[2021-07-11] MEDS ORDERED: cefTRIAXone IN SWFI 1,000 MG/10 ML SYRINGE IVP STA (13:29)
[2021-07-11] MEDS ORDERED: DEXAMETHASONE SOD PHOSPHATE 10 MG/ML 1 ML VIAL IV STA (13:30)
[2021-07-11] MEDS ORDERED: methylPREDNISolone SOD SUCCI 40 MG/ML 1 ML VIAL IV STA (17:41)
--- NOTE | 2021-07-11 18:09 | ED ---
Medical Decision Making - Medical Decision Making Patient is an 81-year-old male was seen by a earlier physician and diagnosed with COPD exacerbation, pneumonia, as well as supratherapeutic INR. He was improving and the plan was originally to send him back to his facility via and blood transfer. However I was notified during his wait that the patient was having increased wheezing and increased work of breathing. He did not cecile aturate. Physical exam didn't support this. We did attempt an additional breathing treatment with minimal improvement. At this time, I believe it is safer for him to be admitted to observation for further treatment for COPD exacerbation and pneumonia at this time. The patient was in agreement with this plan. I spoke with the admitting physician, Dr. Metcalf who accepted the patient. Consult was placed to pulmonology. Patient was placed on every 4 hours do not as well as she six-hour steroids. He will be continued on IV antibiotics. Patient was in agreement with this plan. - Lab Data Result diagrams: 07/11/21 11:57 07/11/21 11:57 Lab Results 07/11/21 07/11/21 07/11/21 Range/Units 11:55 11:57 11:57 WBC 12.0 H (3.8-10.6) k/uL RBC 4.78 (4.30-5.90) m/uL Hgb 13.8 (13.0-17.5) gm/dL Hct 43.0 (39.0-53.0) % MCV 90.0 (80.0-100.0) fL MCH 28.8 (25.0-35.0) pg MCHC 32.1 (31.0-37.0) g/dL RDW 14.3 (11.5-15.5) % Plt Count 299 (150-450) k/uL MPV 7.7 Neutrophils % 70 % Lymphocytes % 18 % Monocytes % 7 % Eosinophils % 3 % Basophils % 0 % Neutrophils # 8.4 H (1.3-7.7) k/uL Lymphocytes # 2.2 (1.0-4.8) k/uL Monocytes # 0.9 (0-1.0) k/uL Eosinophils # 0.4 (0-0.7) k/uL Basophils # 0.0 (0-0.2) k/uL PT 46.0 H (9.0-12.0) sec INR 4.6 H (<1.2) APTT 29.7 (22.0-30.0) sec Sodium (137-145) mmol/L Potassium (3.5-5.1) mmol/L Chloride (98-107) mmol/L Carbon Dioxide (22-30) mmol/L Anion Gap mmol/L BUN (9-20) mg/dL Creatinine (0.66-1.25) mg/dL Est GFR (CKD-EPI)AfAm (>60 ml/min/1.73 sqM) Est GFR (CKD-EPI)NonAf (>60 ml/min/1.73 sqM) Glucose (74-99) mg/dL Calcium (8.4-10.2) mg/dL Troponin I (0.000-0.034) ng/mL NT-Pro-B Natriuret Pep pg/mL Coronavirus (PCR) Not Detected (Not Detectd) 07/11/21 07/11/21 07/11/21 Range/Units 11:57 11:57 11:57 WBC (3.8-10.6) k/uL RBC (4.30-5.90) m/uL Hgb (13.0-17.5) gm/dL Hct (39.0-53.0) % MCV (80.0-100.0) fL MCH (25.0-35.0) pg MCHC (31.0-37.0) g/dL RDW (11.5-15.5) % Plt Count (150-450) k/uL MPV Neutrophils % % Lymphocytes % % Monocytes % % Eosinophils % % Basophils % % Neutrophils # (1.3-7.7) k/uL Lymphocytes # (1.0-4.8) k/uL Monocytes # (0-1.0) k/uL Eosinophils # (0-0.7) k/uL Basophils # (0-0.2) k/uL PT (9.0-12.0) sec INR (<1.2) APTT (22.0-30.0) sec Sodium 139 (137-145) mmol/L Potassium 4.2 (3.5-5.1) mmol/L Chloride 102 (98-107) mmol/L Carbon Dioxide 29 (22-30) mmol/L Anion Gap 8 mmol/L BUN 31 H (9-20) mg/dL Creatinine 0.92 (0.66-1.25) mg/dL Est GFR (CKD-EPI)AfAm >90 (>60 ml/min/1.73 sqM) Est GFR (CKD-EPI)NonAf 78 (>60 ml/min/1.73 sqM) Glucose 131 H (74-99) mg/dL Calcium 9.0 (8.4-10.2) mg/dL Troponin I <0.012 (0.000-0.034) ng/mL NT-Pro-B Natriuret Pep 864 pg/mL Coronavirus (PCR) (Not Detectd) 07/11/21 Range/Units 14:27 WBC (3.8-10.6) k/uL RBC (4.30-5.90) m/uL Hgb (13.0-17.5) gm/dL Hct (39.0-53.0) % MCV (80.0-100.0) fL MCH (25.0-35.0) pg MCHC (31.0-37.0) g/dL RDW (11.5-15.5) % Plt Count (150-450) k/uL MPV Neutrophils % % Lymphocytes % % Monocytes % % Eosinophils % % Basophils % % Neutrophils # (1.3-7.7) k/uL Lymphocytes # (1.0-4.8) k/uL Monocytes # (0-1.0) k/uL Eosinophils # (0-0.7) k/uL Basophils # (0-0.2) k/uL PT (9.0-12.0) sec INR (<1.2) APTT (22.0-30.0) sec Sodium (137-145) mmol/L Potassium (3.5-5.1) mmol/L Chloride (98-107) mmol/L Carbon Dioxide (22-30) mmol/L Anion Gap mmol/L BUN (9-20) mg/dL Creatinine (0.66-1.25) mg/dL Est GFR (CKD-EPI)AfAm (>60 ml/min/1.73 sqM) Est GFR (CKD-EPI)NonAf (>60 ml/min/1.73 sqM) Glucose (74-99) mg/dL Calcium (8.4-10.2) mg/dL Troponin I <0.012 (0.000-0.034) ng/mL NT-Pro-B Natriuret Pep pg/mL Coronavirus (PCR) (Not Detectd) Disposition Clinical Impression: COPD exacerbation, Chest pain, Pneumonia, Supratherapeutic INR Disposition: ADMITTED IP TO THIS HOSP Condition: Stable Instructions (If sedation given, give patient instructions): Dyspnea (ED) Referrals: Johnathan Bustillos MD [Primary Care Provider] - 1-2 days
[2021-07-11] MEDS: IPRATROPIUM-ALBUTEROL 3 ML NEB INHALATION SCH (19:26)
[2021-07-11] MEDS: METOPROLOL TARTRATE 25 MG TAB PO SCH (22:46)
[2021-07-11] MEDS: ATORVASTATIN 20 MG TAB PO SCH (22:46)
[2021-07-11] MEDS: TAMSULOSIN 0.4 MG CAP.ER.24H PO SCH (22:46)
[2021-07-12] MEDS: IPRATROPIUM-ALBUTEROL 3 ML NEB INHALATION SCH ×6 (00:07→23:41)
[2021-07-12 05:35] LABS: Basophils % (A) 0 %; Eosinophils % (A) 0 %; HCT 41.7 % (39.0-53.0); HGB 13.5 gm/dL (13.0-17.5); Lymphocytes % (A) 9 %; MCH 29.2 pg (25.0-35.0); MCHC 32.4 g/dL (31.0-37.0); Mean Platelet Volume 8.1; Monocytes # (A) 0.2 k/uL (0-1.0); Monocytes % (A) 2 %; Neutrophils # (A) 9.8 k/uL (1.3-7.7); Neutrophils % (A) 89 %; Platelet Count 260 k/uL (150-450); RBC 4.63 m/uL (4.30-5.90); RDW 13.9 % (11.5-15.5); WBC 11.1 k/uL (3.8-10.6)
[2021-07-12 05:41] LABS: INR 3.3 (<1.2); Prothrombin Time 32.7 sec (9.0-12.0)
[2021-07-12 05:51] LABS: African American GFR (CKD) >90 (>60 ml/min/1.73 sqM); Anion Gap 7 mmol/L; Blood Urea Nitrogen 35 mg/dL (9-20); Carbon Dioxide 29 mmol/L (22-30); Chloride 101 mmol/L (98-107); Glucose 165 mg/dL (74-99); Non-African American GFR(CKD) 80 (>60 ml/min/1.73 sqM); Potassium 4.5 mmol/L (3.5-5.1); Sodium 137 mmol/L (137-145)
[2021-07-12] MEDS ORDERED: ACETAMINOPHEN TAB 325 MG TAB PO PRN (07:20)
--- NOTE | 2021-07-12 08:23 | P.HPIM ---
History of Present Illness This is a pleasant 81 years old male with past medical history of Atrial Fibrillation, on warfarin, COPD, GERD/Reflux, Hyperlipidemia, Hypertension, Pneumonia, BPH, COPD with an FEV1 of 45% of predicted, chronic back pain, chronic neck pain with radiculopathy and numbness and tingling involving the right upper extremity and the hand and the lower extremities, history of childhood left eye injury with limited vision involving the left eye.s/p cervical decompression/discectomy and fusion with bone graft, Patient presents because of dyspnea and expiratory wheezing Patient is poor historian. He is oriented to place only as he knows in the hospital but he thought it is 1919 [place] and he could not tell the name of the president. He could not remember all the details but he knew that he came because of dyspnea and some chest pain with coughing. Currently he does not have chest pain. Also he states he makes some phlegm but he wasn't sure. He states he does not use oxygen at home. He walks wheezing a walker. He denies any urinary symptoms. No diarrhea or vomiting. He denies smoking, alcohol or illicit drugs at home. Vitas looks stable and he is saturating 95% on 4 L oxygen via nasal cannula. And the presentation he was tachypneic around 28-30 breath per minutes, now is better at 20 breaths per minute labs showed mild leukocytosis with 11.1, INR is elevated 3.3, hemoglobin and platelets are stable and normal. Rest of BMP is unremarkable and troponin are negative with less than 0.012. ProBNP is 864. Coronavirus not detected EKG showing atrial fibrillation's with PVC and aberrant conduction complexes at a rate of 99 and QTC 449, no significant ST-T changes Chest x-ray: COPD, mild interstitial infiltrates in the right upper lobe. Improved interstitial infiltrates in the lower lungs In the emergency room patient was started on Zithromax and ceftriaxone as well as a steroids Review of Systems CONSTITUTIONAL: No fever, no malaise, no fatigue. HEENT: No recent visual problems or hearing problems. Denied any sore throat. CARDIOVASCULAR: No orthopnea, PND, no palpitations, no syncope. PULMONARY: No chest wall tenderness,, no hemoptysis. GASTROINTESTINAL: No diarrhea, no nausea, no vomiting, no abdominal pain. Normoactive bowel sounds. NEUROLOGICAL: No headaches, no weakness, no numbness. HEMATOLOGICAL: Denies any bleeding or petechiae. GENITOURINARY: Denies any burning micturition, frequency, or urgency. MUSCULOSKELETAL/RHEUMATOLOGICAL: Denies any joint pain, swelling, or any muscle pain. ENDOCRINE: Denies any polyuria or polydipsia. Past Medical History Past Medical History: Atrial Fibrillation, Cancer, COPD, GERD/Reflux, Hyperlipidemia, Hypertension, Pneumonia, Prostate Disorder Additional Past Medical History / Comment(s): COPD with an FEV1 of 45% of predicted, chronic atrial fibrillation, skin cancer involving the left cheek resected surgically, chronic back pain, chronic neck pain with radiculopathy and numbness and tingling involving the right upper extremity and the hand and the lower extremities, varicose veins bilaterally, hypertension, hyperlipidemia, history of childhood left eye injury with limited vision involving the left eye. 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 Past Anesthesia/Blood Transfusion Reactions: No Reported Reaction Past Psychological History: No Psychological Hx Reported Smoking Status: Unknown if ever smoked Past Alcohol Use History: Unable to Obtain Past Drug Use History: Unable to Obtain - Past Family History Father Additional Family Medical History / Comment(s): Father was a drinker. He at the age of 80yrs. Mother Family Medical History: No Reported History Additional Family Medical History / Comment(s): Mother was healthy and lived to b90yrs old. Daughter(s) Family Medical History: Cancer Additional Family Medical History / Comment(s): Nely had breast cancer. Brother(s) Family Medical History: Cancer Additional Family Medical History / Comment(s): Brother had melanoma skin cancer. Sister(s) Family Medical History: Cancer Additional Family Medical History / Comment(s): Sister had melanoma skin cancer. Medications and Allergies Home Medications Medication Instructions Recorded Confirmed Type Diltiazem HCl [Diltiazem HCl 24Hr 120 mg PO DAILY@0900 04/04/18 07/11/21 History ER (CD)] Acetaminophen Tab [Tylenol] 650 mg PO Q6HR PRN tab 07/07/20 07/11/21 Rx Albuterol Inhaler [Ventolin Hfa 1 puff INHALATION RT-Q4H PRN 08/26/20 07/11/21 History Inhaler] Ipratropium-Albuterol Nebulize 3 ml INHALATION RT-TID@,,08/26/20 07/11/21 History [Duoneb 0.5 mg-3 mg/3 ml Soln] Tamsulosin [Flomax] 0.4 mg PO HS@209908/26/20 07/11/21 History Cholecalciferol [Vitamin D3 (25 50 mcg PO HS@209906/08/21 07/11/21 History Mcg = 1000 Iu)] Ipratropium-Albuterol Nebulize 3 ml INHALATION RT-Q4H PRN 06/08/21 07/11/21 History [Duoneb 0.5 mg-3 mg/3 ml Soln] Lactose-Reduced Food [Ensure Plus] 240 ml PO DAILY 06/08/21 07/11/21 History Metoprolol Tartrate [Lopressor] 25 mg PO BID@0900,209906/08/21 07/11/21 History Multivitamins, Thera [Multivitamin 1 tab PO BID@0900,209906/08/21 07/11/21 History (formulary)] Warfarin Sodium 4 mg PO MOWEFR@1700 06/08/21 07/11/21 History Warfarin Sodium 6 mg PO SUTUTHSA@1700 06/08/21 07/11/21 History Folic Acid 1 mg PO DAILY@0900 06/25/21 07/11/21 History Furosemide [Lasix] 20 mg PO DAILY@0600 06/25/21 07/11/21 History Pantoprazole [Protonix] 40 mg PO DAILY@0600 06/25/21 07/11/21 History Aspirin 81 mg PO DAILY tab 06/28/21 07/11/21 Rx Atorvastatin [Lipitor] 20 mg PO HS tab 06/28/21 07/11/21 Rx Cefuroxime Axetil [Ceftin] 500 mg PO BID@0900,209907/11/21 07/11/21 History Depo-Medrol 80mg/Ml 80 mg INJ ONCE 07/11/21 07/11/21 History Z-Guard 1 applic TOPICAL BID 07/11/21 07/11/21 History cefTRIAXone [Rocephin] 1 gm IVPB ONCE 07/11/21 07/11/21 History predniSONE See Taper PO DAILY 07/11/21 07/11/21 History Allergies Allergy/AdvReac Type Severity Reaction Status Date / Time No Known Allergies Allergy Verified 07/11/21 13:05 Physical Exam Vitals: Vital Signs Temp Pulse Resp BP Pulse Ox 07/12/21 04:25 72 20 95 07/12/21 01:03 64 20 102/59 96 07/11/21 22:48 79 18 111/77 95 07/11/21 19:42 87 18 109/64 94 L 07/11/21 19:40 90 07/11/21 19:27 80 07/11/21 18:21 72 24 129/75 96 07/11/21 17:39 84 07/11/21 17:28 87 07/11/21 17:23 91 24 96 07/11/21 16:30 90 20 94 L 07/11/21 15:31 79 07/11/21 15:20 76 07/11/21 15:11 80 24 124/77 96 07/11/21 13:19 76 18 120/64 94 L 07/11/21 11:50 28 H 07/11/21 11:23 97.5 F L 113 H 30 H 142/86 95 GENERAL: The patient is alert and oriented x3, not in any acute distress. Well developed, well nourished. HEENT: Pupils are round and equally reacting to light. EOMI. No scleral icterus. No conjunctival pallor. Normocephalic, atraumatic. No pharyngeal erythema. No thyromegaly. CARDIOVASCULAR: S1 and S2 present. No murmurs, rubs, or gallops. -PULMONARY: Chest is clear to auscultation, bilateral expiratory wheezing wheezing. No crackles. ABDOMEN: Soft, nontender, nondistended, normoactive bowel sounds. No palpable organomegaly. MUSCULOSKELETAL: No joint swelling or deformity. EXTREMITIES: No cyanosis, clubbing, or pedal edema. NEUROLOGICAL: Gross neurological examination did not reveal any focal deficits. SKIN: No rashes. No petechiae Results CBC & Chem 7: 07/12/21 05:23 07/12/21 05:23 Labs: Abnormal Lab Results - Last 24 Hours (Table) 07/11/21 07/11/21 07/11/21 Range/Units 11:57 11:57 11:57 WBC 12.0 H (3.8-10.6) k/uL Neutrophils # 8.4 H (1.3-7.7) k/uL PT 46.0 H (9.0-12.0) sec INR 4.6 H (<1.2) BUN 31 H (9-20) mg/dL Glucose 131 H (74-99) mg/dL 07/12/21 07/12/21 07/12/21 Range/Units 05:23 05:23 05:23 WBC 11.1 H (3.8-10.6) k/uL Neutrophils # 9.8 H (1.3-7.7) k/uL PT 32.7 H (9.0-12.0) sec INR 3.3 H (<1.2) BUN 35 H (9-20) mg/dL Glucose 165 H (74-99) mg/dL Assessment and Plan Assessment: Acute COPD exacerbation Possible early right upper community acquired pneumonia Coagulopathy secondary to Coumadin Chronic atrial fibrillation on Coumadin Memory impairment 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 Check forcalcitonin Labs and medication were reviewed.. Continue same treatment. Continue with symptomatic treatment. Resume home medication. Monitor lytes and vitals. DVT and GI prophylaxis. Further recommendationsas per clinical course of the patient DVT prophylaxis: On Coumadin GI Prophylaxis: Ppi PT/OT: Pending Prognosis is guarded
[2021-07-12] MEDS: DILTIAZEM CD 120 MG CAP.ER.24H PO SCH (08:52)
[2021-07-12] MEDS: FUROSEMIDE 20 MG TAB PO SCH (08:52)
[2021-07-12] MEDS: FOLIC ACID 1 MG TAB PO SCH (08:53)
[2021-07-12] MEDS: PANTOPRAZOLE 40 MG TABLET PO SCH (08:53)
[2021-07-12] MEDS: METOPROLOL TARTRATE 25 MG TAB PO SCH ×2 (08:53→20:45)
[2021-07-12] MEDS: ASPIRIN 81 MG PO SCH (08:53)
[2021-07-12] MEDS: AZITHROMYCIN 500 MG in SODIUM CHLORIDE 0.9% 250 ML IVPB SCH (12:00)
--- NOTE | 2021-07-12 13:47 | P.CNPUL ---
History of Present Illness Consult date: 07/12/21 Requesting physician: Josue Metcalf Reason for consult: dyspnea, cough Chief complaint: Shortness of breath, cough congestion History of present illness: This is a very pleasant 80-year-old male patient with multiple medical problems including COPD with baseline FEV1 of 45% of predicted, chronic A. fib with history of ablation, and patient reverted back to A. fib, on Coumadin for anticoagulation, hypertension, hyperlipidemia, former smoker, chronic back pain and chronic neck pain. He has been currently residing at [facility] on [facility] and they brought him here by EMS yesterday feeling he was short of breath and had oxygen saturations in the low 80s. He is seen today in consultation emergency department. He's currently sitting up in a stretcher. Awake and alert. He has a active cough of greenish brown sputum. He's shortness of breath with minimal conversation. Currently maintaining O2 saturations in the mid 90s on 4 L/m per nasal cannula. Afebrile. Hemodynamically stable. Chest x-ray reveals evidence of COPD. Mild interstitial infiltrates in the right upper lobe. Improving interstitial infiltrates on our lungs compared to 06/25/2021. White count 11.1. Hemoglobin 13.5. INR 3.3. Sodium 137. Potassium 4.5. Creatinine 0.89. Tineo virus by PCR negative. He's been initiated on ceftriaxone and azithromycin. DuoNeb inhalations, Pulmicort inhalations. Review of Systems REVIEW OF SYSTEMS: CONSTITUTIONAL: Denies any recent significant weight loss or weight gain. EYES: Denies change in vision. EARS, NOSE, MOUTH, THROAT: Denies headaches, denies sore throat. CARDIOVASCULAR: Denies chest pain, palpitations or syncopal episodes. RESPIRATORY: Positive for shortness of breath, cough, congestion no hemoptysis. GASTROINTESTINAL: Denies change in appetite, denies abdominal pain GENITOURINARY: Denies hematuria, denies infections. MUSKULOSKELETAL: Denies pain, denies swelling. INTEGUMENTARY: Denies rash, denies eczema. NEUROLOGICAL: Denies recent memory loss, no recent seizure activity. PSYCHIATRIC: Denies anxiety, denies depression. HEMATOLOGIC/LYMPHATIC: Denies anemia, denies enlarged lymph nodes. Past Medical History Past Medical History: Atrial Fibrillation, Cancer, Heart Failure, COPD, Dementia, GERD/Reflux, Hyperlipidemia, Hypertension, Pneumonia, Prostate Disorder Additional Past Medical History / Comment(s): Pt recently admitted to [facility] on 06/28/21 with expressive dysphasia, possible acute TIA or acute stroke. Other hx: Chronic cervical pain with radiculopathy/numbness and tingling R arm/hand, chronic back pain with numbness/tingling bilateral legs, bilateral leg varicosities, kidney stone/surgically removed, BPH, insomnia, weakness, vitamin D deficiency. 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 Past Anesthesia/Blood Transfusion Reactions: No Reported Reaction Smoking Status: Former smoker - Past Family History Father Additional Family Medical History / Comment(s): Father was a drinker. He at the age of 80yrs. Mother Family Medical History: No Reported History Additional Family Medical History / Comment(s): Mother was healthy and lived to b90yrs old. Daughter(s) Family Medical History: Cancer Additional Family Medical History / Comment(s): Nely had breast cancer. Brother(s) Family Medical History: Cancer Additional Family Medical History / Comment(s): Brother had melanoma skin cancer. Sister(s) Family Medical History: Cancer Additional Family Medical History / Comment(s): Sister had melanoma skin cancer. Medications and Allergies Home Medications Medication Instructions Recorded Confirmed Type Diltiazem HCl [Diltiazem HCl 24Hr 120 mg PO DAILY@0900 04/04/18 07/11/21 History ER (CD)] Acetaminophen Tab [Tylenol] 650 mg PO Q6HR PRN tab 07/07/20 07/11/21 Rx Albuterol Inhaler [Ventolin Hfa 1 puff INHALATION RT-Q4H PRN 08/26/20 07/11/21 History Inhaler] Ipratropium-Albuterol Nebulize 3 ml INHALATION RT-TID@06,14,22 08/26/20 07/11/21 History [Duoneb 0.5 mg-3 mg/3 ml Soln] Tamsulosin [Flomax] 0.4 mg PO HS@2100 03/18/21 01/31/22 History Cholecalciferol [Vitamin D3 (25 50 mcg PO HS@209906/08/21 07/11/21 History Mcg = 1000 Iu)] Ipratropium-Albuterol Nebulize 3 ml INHALATION RT-Q4H PRN 06/08/21 07/11/21 History [Duoneb 0.5 mg-3 mg/3 ml Soln] Lactose-Reduced Food [Ensure Plus] 240 ml PO DAILY 06/08/21 07/11/21 History Metoprolol Tartrate [Lopressor] 25 mg PO BID@0900,209906/08/21 07/11/21 History Multivitamins, Thera [Multivitamin 1 tab PO BID@0900,209906/08/21 07/11/21 History (formulary)] Warfarin Sodium 4 mg PO MOWEFR@1700 06/08/21 07/11/21 History Warfarin Sodium 6 mg PO SUTUTHSA@1700 06/08/21 07/11/21 History Folic Acid 1 mg PO DAILY@0900 06/25/21 07/11/21 History Furosemide [Lasix] 20 mg PO DAILY@0600 06/25/21 07/11/21 History Pantoprazole [Protonix] 40 mg PO DAILY@0600 06/25/21 07/11/21 History Aspirin 81 mg PO DAILY tab 06/28/21 07/11/21 Rx Atorvastatin [Lipitor] 20 mg PO HS tab 06/28/21 07/11/21 Rx Cefuroxime Axetil [Ceftin] 500 mg PO BID@0900,209907/11/21 07/11/21 History Depo-Medrol 80mg/Ml 80 mg INJ ONCE 07/11/21 07/11/21 History Z-Guard 1 applic TOPICAL BID 07/11/21 07/11/21 History cefTRIAXone [Rocephin] 1 gm IVPB ONCE 07/11/21 07/11/21 History predniSONE See Taper PO DAILY 07/11/21 07/11/21 History Allergies Allergy/AdvReac Type Severity Reaction Status Date / Time No Known Allergies Allergy Verified 07/11/21 13:05 Physical Exam Vitals: Vital Signs Temp Pulse Pulse Resp BP BP Pulse Ox 07/12/21 12:01 70 16 122/79 97 07/12/21 08:42 98.0 F 58 L 18 122/80 95 07/12/21 04:25 72 20 95 07/12/21 01:03 64 20 102/59 96 07/11/21 22:48 79 18 111/77 95 07/11/21 19:42 87 18 109/64 94 L 07/11/21 19:40 90 07/11/21 19:27 80 07/11/21 18:21 72 24 129/75 96 07/11/21 17:39 84 07/11/21 17:28 87 07/11/21 17:23 91 24 96 07/11/21 16:30 90 20 94 L 07/11/21 15:31 79 07/11/21 15:20 76 07/11/21 15:11 80 24 124/77 96 Intake and Output 07/11/21 07/12/21 07/12/21 22:59 06:59 14:59 Other: Weight 77.111 kg GENERAL EXAM: Alert, pleasant 81-year-old gentleman, on 4 L nasal cannula, fairly comfortable in no apparent distress. HEAD: Normocephalic. EYES: Normal reaction of pupils, equal size. NOSE: Clear with pink turbinates. THROAT: No erythema or exudates. NECK: No masses, no JVD. CHEST: No chest wall deformity. LUNGS: Equal air entry with bilateral scattered rhonchi, end expiratory wheeze, diminished CVS: S1 and S2 normal with no audible murmur, regular rhythm. ABDOMEN: No hepatosplenomegaly, normal bowel sounds, no guarding or rigidity. SPINE: No scoliosis or deformity SKIN: No rashes CENTRAL NERVOUS SYSTEM: No focal deficits, tone is normal in all 4 extremities. EXTREMITIES: There is no peripheral edema. No clubbing, no cyanosis. Peripheral pulses are intact. Results - Laboratory Findings CBC and BMP: 07/12/21 05:23 07/12/21 05:23 PT/INR, D-dimer PT 32.7 sec (9.0-12.0) H 07/12/21 05:23 INR 3.3 (<1.2) H 07/12/21 05:23 Abnormal lab findings: Abnormal Labs 07/11/21 07/11/21 07/11/21 11:57 11:57 11:57 WBC 12.0 H Neutrophils # 8.4 H PT 46.0 H INR 4.6 H BUN 31 H Glucose 131 H 07/12/21 07/12/21 07/12/21 05:23 05:23 05:23 WBC 11.1 H Neutrophils # 9.8 H PT 32.7 H INR 3.3 H BUN 35 H Glucose 165 H - Diagnostic Findings Chest x-ray: image reviewed Assessment and Plan Assessment: 1 Acute hypoxemic respiratory failure and acute exacerbation of chronic obstructive pulmonary disease and suspected early pneumonia. 2 Mildly impaired left ventricular systolic function with ejection fraction 45- 50%. 3 Rule out possibility of urinary tract infection, patient is covered with Rocephin 4 Chronic A. 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 He has since been vaccinated and boosted. Plan: The patient was seen and evaluated Discontinue ceftriaxone, add cefepime Continue azithromycin Obtain a sputum culture Check a pro-calcitonin Titrate the FiO2 as tolerated We will continue to follow and make further recommendations based on his clinical status I, the cosigning physician, performed a history & physical examination of the patient. Lungs sounds with bilateral end expiratory wheeze, bilateral rhonchi. Maintaining good O2 saturations in the 90s on 4 L/m per nasal cannula. I discussed the assessment and plan of care with my nurse practitioner, Kia Driscoll. I attest to the above consultation as dictated by her. Time with Patient: Greater than 30
[2021-07-12] MEDS: CEFEPIME 2 GM in SODIUM CHLORIDE 0.9% 100 ML IVPB SCH (16:54)
[2021-07-12] MEDS: BUDESONIDE 0.5 MG/2 ML NEBU INHALATION SCH (20:11)
[2021-07-12] MEDS: ATORVASTATIN 20 MG TAB PO SCH (20:45)
[2021-07-12] MEDS: CHOLECALCIFEROL 25 MCG (1000 IU) TABLET PO SCH (20:45)
[2021-07-12] MEDS: TAMSULOSIN 0.4 MG CAP.ER.24H PO SCH (20:46)
[2021-07-13] MEDS: CEFEPIME 2 GM in SODIUM CHLORIDE 0.9% 100 ML IVPB SCH ×4 (00:25→23:10)
[2021-07-13] MEDS: FUROSEMIDE 20 MG TAB PO SCH (05:25)
[2021-07-13] MEDS: PANTOPRAZOLE 40 MG TABLET PO SCH (05:25)
[2021-07-13] MEDS: IPRATROPIUM-ALBUTEROL 3 ML NEB INHALATION SCH ×5 (07:53→23:17)
[2021-07-13] MEDS: BUDESONIDE 0.5 MG/2 ML NEBU INHALATION SCH ×2 (07:54→19:25)
[2021-07-13] MEDS: ASPIRIN 81 MG PO SCH (09:26)
[2021-07-13] MEDS: DILTIAZEM CD 120 MG CAP.ER.24H PO SCH (09:26)
[2021-07-13] MEDS: METOPROLOL TARTRATE 25 MG TAB PO SCH ×2 (09:26→21:38)
[2021-07-13] MEDS: FOLIC ACID 1 MG TAB PO SCH (09:26)
[2021-07-13] MEDS: AZITHROMYCIN 500 MG in SODIUM CHLORIDE 0.9% 250 ML IVPB SCH (10:59)
--- NOTE | 2021-07-13 11:43 | P.PN ---
Subjective Progress Note Date: 07/13/21 This is a very pleasant 80-year-old male patient with multiple medical problems including COPD with baseline FEV1 of 45% of predicted, chronic A. fib with history of ablation, and patient reverted back to A. fib, on Coumadin for anticoagulation, hypertension, hyperlipidemia, former smoker, chronic back pain and chronic neck pain. He has been currently residing at [facility] on the [place] and they brought him here by EMS yesterday feeling he was short of breath and had oxygen saturations in the low 80s. He is seen today in consultation emergency department. He's currently sitting up in a stretcher. Awake and alert. He has a active cough of greenish brown sputum. He's shortness of breath with minimal conversation. Currently maintaining O2 saturations in the mid 90s on 4 L/m per nasal cannula. Afebrile. Hemodynamically stable. Chest x-ray reveals evidence of COPD. Mild interstitial infiltrates in the right upper lobe. Improving interstitial infiltrates on our lungs compared to 06/25/2021. White count 11.1. Hemoglobin 13.5. INR 3.3. Sodium 137. Potassium 4.5. Creatinine 0.89. Taniya na virus by PCR negative. He's been initiated on ceftriaxone and azithromycin. DuoNeb inhalations, Pulmicort inhalations. The patient is seen today 07/13/2021 in follow-up on the regular medical floor. He is currently sitting up in a chair at the bedside. Awake and alert in no acute distress. Breathing a bit easier today compared to yesterday. He was admitted for acute hypoxemic respiratory failure with acute exacerbation of COPD and suspected early pneumonia. He is currently maintaining O2 saturations in the 90s on 4 L/m per nasal cannula. He is afebrile. Hemodynamically stable. Pro-calcitonin 0.05. No new labs today. He is continued on cefepime and azithromycin. He remains on DuoNeb inhalations, Pulmicort inhalations. Objective - Vital Signs Vital signs: Vital Signs Temp 98.4 F 07/13/21 04:12 Pulse 79 07/13/21 09:23 Resp 20 07/13/21 04:12 BP 118/61 07/13/21 09:23 Pulse Ox 94 L 07/13/21 04:12 Intake & Output 07/12/21 07/13/21 07/13/21 18:59 06:59 18:59 Intake Total 600 100 Output Total 700 Balance -100 100 Weight 77.111 kg 77.111 kg Intake: Intake, IV Titration 100 Amount Cefepime 2 gm In Sodium 100 Chloride 0.9% 100 ml @ 25 mls/hr IVPB Q8HR [facility] Rx# :[id number] Oral 600 Output: Urine 700 Other: Voiding Method Urinal Toilet Urinal - Exam GENERAL EXAM: Alert, pleasant 81-year-old gentleman, on 3 L nasal cannula, up in a chair at the bedside, comfortable in no apparent distress. HEAD: Normocephalic. EYES: Normal reaction of pupils, equal size. NOSE: Clear with pink turbinates. THROAT: No erythema or exudates. NECK: No masses, no JVD. CHEST: No chest wall deformity. LUNGS: Equal air entry with bilateral scattered rhonchi, end expiratory wheeze, diminished CVS: S1 and S2 normal with no audible murmur, regular rhythm. ABDOMEN: No hepatosplenomegaly, normal bowel sounds, no guarding or rigidity. SPINE: No scoliosis or deformity SKIN: No rashes CENTRAL NERVOUS SYSTEM: No focal deficits, tone is normal in all 4 extremities. EXTREMITIES: There is no peripheral edema. No clubbing, no cyanosis. Peripheral pulses are intact. - Labs CBC & Chem 7: 07/12/21 05:23 07/12/21 05:23 Assessment and Plan Assessment: 1 Acute hypoxemic respiratory failure and acute exacerbation of chronic obstructive pulmonary disease and suspected early pneumonia. Though pro calcitonin 0.05. 2 Mildly impaired left ventricular systolic function with ejection fraction 45- 50%. 3 Rule out possibility of urinary tract infection, patient is covered with Rocephin 4 Chronic A. 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 He has since been vaccinated and boosted. Plan: The patient was seen and evaluated Continue cefepime and azithromycin Continue bronchodilators Obtain a sputum culture Titrate the FiO2 as tolerated Follow-up chest x-ray in the a.m. We will continue to follow I, the cosigning physician, performed a history & physical examination of the patient. Lungs sounds with bilateral end expiratory wheeze, bilateral rhonchi. Maintaining good O2 saturations in the 90s on 4 L/m per nasal cannula. I discussed the assessment and plan of care with my nurse practitioner, Kia Driscoll. I attest to the above note as dictated by her.
[2021-07-13 11:51] LABS: ALT 30 U/L (10-49); AST 31 U/L (14-35); Albumin 3.9 g/dL (3.8-4.9); Albumin/Globulin Ratio 1.12 (1.60-3.17); Alkaline Phosphatase 118 U/L (41-126); Bilirubin, Conjugated <0.20 mg/dL (0.20-0.40); Globulin 3.5 g/dL (1.6-3.3); Magnesium 2.1 mg/dL (1.5-2.4); Total Protein 7.4 g/dL (6.2-8.2)
[2021-07-13 13:21] VITALS: BMI 23.0
[2021-07-13] MEDS: TAMSULOSIN 0.4 MG CAP.ER.24H PO SCH (21:39)
[2021-07-13] MEDS: ATORVASTATIN 20 MG TAB PO SCH (21:39)
[2021-07-13] MEDS: CHOLECALCIFEROL 25 MCG (1000 IU) TABLET PO SCH (21:39)
--- NOTE | 2021-07-13 22:46 | P.PN ---
Subjective Progress Note Date: 07/13/21 This is a pleasant 81 years old male with past medical history of Atrial Fibrillation, on warfarin, COPD, GERD/Reflux, Hyperlipidemia, Hypertension, Pneumonia, BPH, COPD with an FEV1 of 45% of predicted, chronic back pain, chronic neck pain with radiculopathy and numbness and tingling involving the right upper extremity and the hand and the lower extremities, history of childhood left eye injury with limited vision involving the left eye.s/p cervical decompression/discectomy and fusion with bone graft, Patient presents because of dyspnea and expiratory wheezing Patient is poor historian. He is oriented to place only as he knows in the hospital but he thought it is [place] and he could not tell the name of the president. He could not remember all the details but he knew that he came because of dyspnea and some chest pain with coughing. Currently he does not have chest pain. Also he states he makes some phlegm but he wasn't sure. He states he does not use oxygen at home. He walks wheezing a walker. He denies any urinary symptoms. No diarrhea or vomiting. He denies smoking, alcohol or illicit drugs at home. Vitas looks stable and he is saturating 95% on 4 L oxygen via nasal cannula. And the presentation he was tachypneic around 28-30 breath per minutes, now is better at 20 breaths per minute labs showed mild leukocytosis with 11.1, INR is elevated 3.3, hemoglobin and platelets are stable and normal. Rest of BMP is unremarkable and troponin are negative with less than 0.012. ProBNP is 864. Coronavirus not detected EKG showing atrial fibrillation's with PVC and aberrant conduction complexes at a rate of 99 and QTC 449, no significant ST-T changes Chest x-ray: COPD, mild interstitial infiltrates in the right upper lobe. Improved interstitial infiltrates in the lower lungs In the emergency room patient was started on Zithromax and ceftriaxone as well as a steroids 07/13/2021 Patient evaluated today sitting up in the chair. He states breathing is improved from yesterday. Continues with green/brown sputum, collection cup at bedside. Otherwise no acute events overnight and no acute complaints today. 97% on 4L NC, wears oxygen as needed at [facility]. We can wean this oxygen down as tolerated. Procalcitonin level 0.05 which is not suggestive of bacterial infection. No labs from today. Continues on antibiotics, steroids. ROS Constitutional: Denied any fatigue denied any fever. Cardio vascular: denied any chest pain, palpitations Gastrointestinal denied any nausea vomiting Pulmonary: Reports mild dyspnea with exertion, reports productive cough Neurologic denied any new focal deficits All inpatient medications were reviewed and appropriate changes in these m edications as dictated in the interval history and assessment and plan. PHYSICAL EXAMINATION: GENERAL: The patient is alert and oriented x3, not in any acute distress. Well developed, well nourished. HEENT: Pupils are round and equally reacting to light. EOMI. No scleral icterus. No conjunctival pallor. Normocephalic, atraumatic. No pharyngeal erythema. No thyromegaly. CARDIOVASCULAR: S1 and S2 present. No murmurs, rubs, or gallops. PULMONARY: Coarse scattered rhonchi, no wheezing noted. ABDOMEN: Soft, nontender, nondistended, normoactive bowel sounds. No palpable organomegaly. MUSCULOSKELETAL: No joint swelling or deformity. EXTREMITIES: No cyanosis, clubbing, or pedal edema. NEUROLOGICAL: Gross neurological examination did not reveal any focal deficits. SKIN: No rashes. Assessment and Plan Assessment: Acute COPD exacerbation, noncompliant with home oxygen, currently on 4l NC Possible early right upper community acquired pneumonia, procalcitonin level 0.05 Coagulopathy secondary to Coumadin Chronic atrial fibrillation on Coumadin Memory impairment 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 History of GERD Hypertension Hyperlipidemia History of BPH History of chronic neck pain with radiculopathy Plan: Continue with steroids, bronchodilator Pulmonary consult Continue with ceftriaxone and Zithromax, pending sputum culture Repeat labs, PT/INR in morning DVT prophylaxis: On Coumadin GI Prophylaxis: Ppi PT/OT: Return to ECF with 01/01 care Prognosis is guarded Objective - Vital Signs Vital signs: Vital Signs Temp 98.4 F 07/13/21 04:12 Pulse 79 07/13/21 09:23 Resp 20 07/13/21 04:12 BP 118/61 07/13/21 09:23 Pulse Ox 94 L 07/13/21 04:12 Intake & Output 07/12/21 07/13/21 07/13/21 18:59 06:59 18:59 Intake Total 600 100 Output Total 700 Balance -100 100 Weight 77.111 kg 77.111 kg Intake: Intake, IV Titration 100 Amount Cefepime 2 gm In Sodium 100 Chloride 0.9% 100 ml @ 25 mls/hr IVPB Q8HR [facility] Rx# :[id number] Oral 600 Output: Urine 700 Other: Voiding Method Urinal Toilet Urinal - Labs CBC & Chem 7: 07/12/21 05:23 07/12/21 05:23 Assessment and Plan Time with Patient: Less than 30
[2021-07-14] MEDS: IPRATROPIUM-ALBUTEROL 3 ML NEB INHALATION SCH ×6 (03:07→23:38)
[2021-07-14] MEDS: FUROSEMIDE 20 MG TAB PO SCH (05:55)
[2021-07-14] MEDS: PANTOPRAZOLE 40 MG TABLET PO SCH (05:55)
[2021-07-14 06:33] LABS: Basophils % (A) 0 %; Eosinophils # (A) 0.4 k/uL (0-0.7); Eosinophils % (A) 4 %; HGB 12.7 gm/dL (13.0-17.5); Lymphocytes # (A) 1.3 k/uL (1.0-4.8); Lymphocytes % (A) 12 %; MCH 29.4 pg (25.0-35.0); MCHC 31.9 g/dL (31.0-37.0); MCV 92.2 fL (80.0-100.0); Mean Platelet Volume 7.8; Monocytes # (A) 0.9 k/uL (0-1.0); Monocytes % (A) 9 %; Neutrophils # (A) 8.1 k/uL (1.3-7.7); Neutrophils % (A) 74 %; Platelet Count 227 k/uL (150-450); RBC 4.33 m/uL (4.30-5.90); RDW 13.9 % (11.5-15.5)
[2021-07-14 06:50] LABS: Prothrombin Time 20.5 sec (9.0-12.0)
[2021-07-14 06:55] LABS: African American GFR (CKD) >90 (>60 ml/min/1.73 sqM); Anion Gap 5 mmol/L; Blood Urea Nitrogen 36 mg/dL (9-20); Calcium 8.7 mg/dL (8.4-10.2); Carbon Dioxide 28 mmol/L (22-30); Chloride 106 mmol/L (98-107); Glucose 119 mg/dL (74-99); Non-African American GFR(CKD) 80 (>60 ml/min/1.73 sqM); Potassium 3.9 mmol/L (3.5-5.1); Sodium 139 mmol/L (137-145)
[2021-07-14] MEDS: FOLIC ACID 1 MG TAB PO SCH (07:08)
[2021-07-14] MEDS: DILTIAZEM CD 120 MG CAP.ER.24H PO SCH (07:08)
[2021-07-14] MEDS: ASPIRIN 81 MG PO SCH (07:08)
[2021-07-14] MEDS: AZITHROMYCIN 500 MG in SODIUM CHLORIDE 0.9% 250 ML IVPB SCH (07:08)
[2021-07-14] MEDS: METOPROLOL TARTRATE 25 MG TAB PO SCH ×2 (07:08→21:02)
[2021-07-14] MEDS: BUDESONIDE 0.5 MG/2 ML NEBU INHALATION SCH ×2 (07:22→19:46)
--- NOTE | 2021-07-14 07:46 | XR ---
EXAMINATION TYPE: XR chest 1V portable DATE OF EXAM: 07/14/2021 Comparison: 07/11/2021 Clinical History: 81-year-old male RUL pneumonia Findings: Patient is rotated towards the left altering the normal cardiac mediastinal contours. ACDF hardware p artially visualized. Patchy left basilar opacity slightly increased. Mild patchy right upper lobe and right basilar density is similar. Impression: Rotated exam. Mild patchy right upper lobe and right basilar infiltrate is similar. Slight worsening in left basilar infiltrate.
[2021-07-14] MEDS: CEFEPIME 2 GM in SODIUM CHLORIDE 0.9% 100 ML IVPB SCH ×3 (08:18→23:35)
--- NOTE | 2021-07-14 12:35 | P.PN ---
Subjective Progress Note Date: 07/14/21 This is a very pleasant 80-year-old male patient with multiple medical problems including COPD with baseline FEV1 of 45% of predicted, chronic A. fib with history of ablation, and patient reverted back to A. fib, on Coumadin for anticoagulation, hypertension, hyperlipidemia, former smoker, chronic back pain and chronic neck pain. He has been currently residing at [facility] on the [place] and they brought him here by EMS yesterday feeling he was short of breath and had oxygen saturations in the low 80s. He is seen today in consultation emergency department. He's currently sitting up in a stretcher. Awake and alert. He has a active cough of greenish brown sputum. He's shortness of breath with minimal conversation. Currently maintaining O2 saturations in the mid 90s on 4 L/m per nasal cannula. Afebrile. Hemodynamically stable. Chest x-ray reveals evidence of COPD. Mild interstitial infiltrates in the right upper lobe. Improving interstitial infiltrates on our lungs compared to 06/25/2021. White count 11.1. Hemoglobin 13.5. INR 3.3. Sodium 137. Potassium 4.5. Creatinine 0.89. Taniya na virus by PCR negative. He's been initiated on ceftriaxone and azithromycin. DuoNeb inhalations, Pulmicort inhalations. The patient is seen today 07/13/2021 in follow-up on the regular medical floor. He is currently sitting up in a chair at the bedside. Awake and alert in no acute distress. Breathing a bit easier today compared to yesterday. He was admitted for acute hypoxemic respiratory failure with acute exacerbation of COPD and suspected early pneumonia. He is currently maintaining O2 saturations in the 90s on 4 L/m per nasal cannula. He is afebrile. Hemodynamically stable. Pro-calcitonin 0.05. No new labs today. He is continued on cefepime and azithromycin. He remains on DuoNeb inhalations, Pulmicort inhalations. The patient is seen today 07/14/2021 in follow-up on the regular medical floor. He is awake and alert in no acute distress. Sitting up in a chair at the bedside. Maintaining O2 saturations up to 100% on 3 L/m per nasal cannula. Follow up chest x-ray reveals mild patchy right upper lobe and right basilar infiltrate. Basilar left infiltrate. Pro-calcitonin was 0.05. Sputum culture is pending. White count 11.0. Hemoglobin 12.7. INR 2.0. Sodium 139. Potassium 3.9. Creatinine 0.89. Continued on DuoNeb inhalations, Pulmicort inhalations. Anticoagulated with warfarin. Antibiotics in the form of cefepime and azithromycin. Objective - Vital Signs Vital signs: Vital Signs Temp 97.8 F 07/14/21 07:05 Pulse 65 07/14/21 11:22 Resp 20 07/14/21 07:05 BP 114/75 07/14/21 07:05 Pulse Ox 100 07/14/21 07:23 Intake & Output 07/13/21 07/14/21 07/14/21 18:59 06:59 18:59 Intake Total 240 100 Output Total 400 Balance 240 -300 Weight 77.111 kg Intake: Intake, IV Titration 100 Amount Cefepime 2 gm In Sodium 100 Chloride 0.9% 100 ml @ 25 mls/hr IVPB Q8HR [facility] Rx# :[id number] Oral 240 Output: Urine 400 Other: Voiding Method Toilet Toilet Urinal Urinal Urinal Diaper Incontinent - Exam GENERAL EXAM: Alert, pleasant 81-year-old gentleman, on 3 L nasal cannula, up in a chair at the bedside, comfortable in no apparent distress. HEAD: Normocephalic. EYES: Normal reaction of pupils, equal size. NOSE: Clear with pink turbinates. THROAT: No erythema or exudates. NECK: No masses, no JVD. CHEST: No chest wall deformity. LUNGS: Equal air entry with bilateral scattered rhonchi, end expiratory wheeze, diminished CVS: S1 and S2 normal with no audible murmur, regular rhythm. ABDOMEN: No hepatosplenomegaly, normal bowel sounds, no guarding or rigidity. SPINE: No scoliosis or deformity SKIN: No rashes CENTRAL NERVOUS SYSTEM: No focal deficits, tone is normal in all 4 extremities. EXTREMITIES: There is no peripheral edema. No clubbing, no cyanosis. Peripheral pulses are intact. - Labs CBC & Chem 7: 07/14/21 05:58 07/14/21 05:58 Labs: Abnormal Lab Results - Last 24 Hours (Table) 07/14/21 07/14/21 07/14/21 Range/Units 05:58 05:58 05:58 WBC 11.0 H (3.8-10.6) k/uL Hgb 12.7 L (13.0-17.5) gm/dL Neutrophils # 8.1 H (1.3-7.7) k/uL PT 20.5 H (9.0-12.0) sec INR 2.0 H (<1.2) BUN 36 H (9-20) mg/dL Glucose 119 H (74-99) mg/dL Assessment and Plan Assessment: 1 Acute hypoxemic respiratory failure and acute exacerbation of chronic obstructive pulmonary disease and suspected early pneumonia. Though pro calcitonin 0.05. 2 Mildly impaired left ventricular systolic function with ejection fraction 45- 50%. 3 Rule out possibility of urinary tract infection, patient is covered with Rocephin 4 Chronic A. 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 He has since been vaccinated and boosted. Plan: The patient was seen and evaluated Chest x-ray and labs reviewed Continue cefepime and azithromycin Continue bronchodilators Sputum culture pending Titrate the FiO2 as tolerated We will continue to follow I, the cosigning physician, performed a history & physical examination of the patient. Lungs sounds with bilateral end expiratory wheeze, bilateral rhonchi. Maintaining good O2 saturations in the 90s on 3 L/m per nasal cannula. I discussed the assessment and plan of care with my nurse practitioner, Kia Driscoll. I attest to the above note as dictated by her.
--- NOTE | 2021-07-14 13:41 | P.PN ---
Subjective Progress Note Date: 07/14/21 This is a pleasant 81 years old male with past medical history of Atrial Fibrillation, on warfarin, COPD, GERD/Reflux, Hyperlipidemia, Hypertension, Pneumonia, BPH, COPD with an FEV1 of 45% of predicted, chronic back pain, chronic neck pain with radiculopathy and numbness and tingling involving the right upper extremity and the hand and the lower extremities, history of childhood left eye injury with limited vision involving the left eye.s/p cervical decompression/discectomy and fusion with bone graft, Patient presents because of dyspnea and expiratory wheezing Patient is poor historian. He is oriented to place only as he knows in the hospital but he thought it is [place] and he could not tell the name of the president. He could not remember all the details but he knew that he came because of dyspnea and some chest pain with coughing. Currently he does not have chest pain. Also he states he makes some phlegm but he wasn't sure. He states he does not use oxygen at home. He walks wheezing a walker. He denies any urinary symptoms. No diarrhea or vomiting. He denies smoking, alcohol or illicit drugs at home. Vitas looks stable and he is saturating 95% on 4 L oxygen via nasal cannula. And the presentation he was tachypneic around 28-30 breath per minutes, now is better at 20 breaths per minute labs showed mild leukocytosis with 11.1, INR is elevated 3.3, hemoglobin and platelets are stable and normal. Rest of BMP is unremarkable and troponin are negative with less than 0.012. ProBNP is 864. Coronavirus not detected EKG showing atrial fibrillation's with PVC and aberrant conduction complexes at a rate of 99 and QTC 449, no significant ST-T changes Chest x-ray: COPD, mild interstitial infiltrates in the right upper lobe. Improved interstitial infiltrates in the lower lungs In the emergency room patient was started on Zithromax and ceftriaxone as well as a steroids 07/13/2021 Patient evaluated today sitting up in the chair. He states breathing is improved from yesterday. Continues with green/brown sputum, collection cup at bedside. Otherwise no acute events overnight and no acute complaints today. 97% on 4L NC, wears oxygen as needed at [facility]. We can wean this oxygen down as tolerated. Procalcitonin level 0.05 which is not suggestive of bacterial infection. No labs from today. Continues on antibiotics, steroids. 07/14/2021 Patient elevated today sitting up in the chair he is requesting to go back to bed as he is tired. No acute events overnight. Sputum cultures all pending, patient still reports cough with greenish brown sputum. He is alert 2 unable to tell me the year but mostly he has had poor hearing hospital. White count today 11, INR 2, resumed Coumadin today, electrolytes are within normal limits. He is afebrile, heart rate 65, blood pressure 114/75, 100% on 3 L nasal cannula continue to wean this as tolerated. Repeat chest x-ray today shows mild patchy right upper lobe and right basilar infiltrate, slight worsening and left basilar infiltrate. Continues IV azithromycin and IV cefepime. He is being followed closely by pulmonary services. Urinalysis has been ordered and not collected yet. ROS Constitutional: Denied any fatigue denied any fever. Cardio vascular: denied any chest pain, palpitations Gastrointestinal denied any nausea vomiting Pulmonary: Reports mild dyspnea with exertion, reports productive cough Neurologic denied any new focal deficits All inpatient medications were reviewed and appropriate changes in these medications as dictated in the interval history and assessment and plan. PHYSICAL EXAMINATION: GENERAL: The patient is alert and oriented x3, not in any acute distress. Well developed, well nourished. HEENT: Pupils are round and equally reacting to light. EOMI. No scleral icterus. No conjunctival pallor. Normocephalic, atraumatic. No pharyngeal erythema. No thyromegaly. CARDIOVASCULAR: S1 and S2 present. No murmurs, rubs, or gallops. PULMONARY: Coarse scattered rhonchi, no wheezing noted. ABDOMEN: Soft, nontender, nondistended, normoactive bowel sounds. No palpable organomegaly. MUSCULOSKELETAL: No joint swelling or deformity. EXTREMITIES: No cyanosis, clubbing, or pedal edema. NEUROLOGICAL: Gross neurological examination did not reveal any focal deficits. SKIN: No rashes. 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 History of GERD Hypertension Hyperlipidemia History of BPH History of chronic neck pain with radiculopathy History of tobacco use Plan: Collect UA - has been ordered Continue with steroids, bronchodilator Pulmonary consult Continue with ceftriaxone and Zithromax, pending sputum culture Repeat labs, PT/INR in morning DVT prophylaxis: On Coumadin, resumed INR 2 today GI Prophylaxis: Ppi PT 8 times statement/OT: Return to ECF with 01/01 care Prognosis is guarded Objective - Vital Signs Vital signs: Vital Signs Temp 97.8 F 07/14/21 07:05 Pulse 65 07/14/21 11:22 Resp 20 07/14/21 07:05 BP 114/75 07/14/21 07:05 Pulse Ox 100 07/14/21 07:23 Intake & Output 07/13/21 07/14/21 07/14/21 18:59 06:59 18:59 Intake Total 240 100 Output Total 400 Balance 240 -300 Weight 77.111 kg Intake: Intake, IV Titration 100 Amount Cefepime 2 gm In Sodium 100 Chloride 0.9% 100 ml @ 25 mls/hr IVPB Q8HR [facility] Rx# :[id number] Oral 240 Output: Urine 400 Other: Voiding Method Toilet Toilet Urinal Urinal Urinal Diaper Incontinent - Labs CBC & Chem 7: 07/14/21 05:58 07/14/21 05:58 Labs: Abnormal Lab Results - Last 24 Hours (Table) 07/14/21 07/14/21 07/14/21 Range/Units 05:58 05:58 05:58 WBC 11.0 H (3.8-10.6) k/uL Hgb 12.7 L (13.0-17.5) gm/dL Neutrophils # 8.1 H (1.3-7.7) k/uL PT 20.5 H (9.0-12.0) sec INR 2.0 H (<1.2) BUN 36 H (9-20) mg/dL Glucose 119 H (74-99) mg/dL Microbiology - Last 24 Hours (Table) 07/13/21 21:48 Sputum Culture - Preliminary Sputum
[2021-07-14] MEDS ORDERED: WARFARIN 5 MG TAB PO ONE (18:00)
[2021-07-14] MEDS: ATORVASTATIN 20 MG TAB PO SCH (21:02)
[2021-07-14] MEDS: CHOLECALCIFEROL 25 MCG (1000 IU) TABLET PO SCH (21:02)
[2021-07-14] MEDS: TAMSULOSIN 0.4 MG CAP.ER.24H PO SCH (21:02)
[2021-07-15] MEDS: IPRATROPIUM-ALBUTEROL 3 ML NEB INHALATION SCH ×5 (04:04→19:46)
[2021-07-15] MEDS: FUROSEMIDE 20 MG TAB PO SCH (05:57)
[2021-07-15] MEDS: PANTOPRAZOLE 40 MG TABLET PO SCH (06:04)
[2021-07-15 06:16] LABS: Appearance,Urine Clear (Clear); Bilirubin,Urine Negative (Negative); Blood,Urine Moderate (Negative); Color,Urine Yellow; Glucose,Urine (UA) Negative (Negative); Ketones,Urine Trace (Negative); Leukocyte Esterase,Urine Negative (Negative); Mucus,Urine Rare /hpf; Nitrite,Urine Negative (Negative); Protein,Urine Trace (Negative); RBC,Urine 7 /hpf (0-5); Specific Gravity,Urine 1.023 (1.001-1.035); Squamous Epithelial Cell,Urine <1 /hpf (0-4); Urobilinogen,Urine <2.0 mg/dL (<2.0); WBC,Urine 1 /hpf (0-5)
[2021-07-15] MEDS: BUDESONIDE 0.5 MG/2 ML NEBU INHALATION SCH ×2 (07:11→19:46)
[2021-07-15] MEDS: CEFEPIME 2 GM in SODIUM CHLORIDE 0.9% 100 ML IVPB SCH ×3 (08:33→23:23)
[2021-07-15] MEDS: FOLIC ACID 1 MG TAB PO SCH (08:34)
[2021-07-15] MEDS: METOPROLOL TARTRATE 25 MG TAB PO SCH ×2 (08:34→20:34)
[2021-07-15] MEDS: DILTIAZEM CD 120 MG CAP.ER.24H PO SCH (08:34)
[2021-07-15] MEDS: ASPIRIN 81 MG PO SCH (08:35)
[2021-07-15] MEDS: AZITHROMYCIN 500 MG TAB PO SCH (08:35)
[2021-07-15 10:44] LABS: INR 1.4 (0.90-1.11); Prothrombin Time 15.2 sec (9.9-11.9)
--- NOTE | 2021-07-15 11:25 | P.PN ---
Subjective Progress Note Date: 07/15/21 This is a very pleasant 80-year-old male patient with multiple medical problems including COPD with baseline FEV1 of 45% of predicted, chronic A. fib with history of ablation, and patient reverted back to A. fib, on Coumadin for anticoagulation, hypertension, hyperlipidemia, former smoker, chronic back pain and chronic neck pain. He has been currently residing at [facility] on the [place] and they brought him here by EMS yesterday feeling he was short of breath and had oxygen saturations in the low 80s. He is seen today in consultation emergency department. He's currently sitting up in a stretcher. Awake and alert. He has a active cough of greenish brown sputum. He's shortness of breath with minimal conversation. Currently maintaining O2 saturations in the mid 90s on 4 L/m per nasal cannula. Afebrile. Hemodynamically stable. Chest x-ray reveals evidence of COPD. Mild interstitial infiltrates in the right upper lobe. Improving interstitial infiltrates on our lungs compared to 06/25/2021. White count 11.1. Hemoglobin 13.5. INR 3.3. Sodium 137. Potassium 4.5. Creatinine 0.89. Taniya na virus by PCR negative. He's been initiated on ceftriaxone and azithromycin. DuoNeb inhalations, Pulmicort inhalations. The patient is seen today 07/13/2021 in follow-up on the regular medical floor. He is currently sitting up in a chair at the bedside. Awake and alert in no acute distress. Breathing a bit easier today compared to yesterday. He was admitted for acute hypoxemic respiratory failure with acute exacerbation of COPD and suspected early pneumonia. He is currently maintaining O2 saturations in the 90s on 4 L/m per nasal cannula. He is afebrile. Hemodynamically stable. Pro-calcitonin 0.05. No new labs today. He is continued on cefepime and azithromycin. He remains on DuoNeb inhalations, Pulmicort inhalations. The patient is seen today 07/14/2021 in follow-up on the regular medical floor. He is awake and alert in no acute distress. Sitting up in a chair at the bedside. Maintaining O2 saturations up to 100% on 3 L/m per nasal cannula. Follow up chest x-ray reveals mild patchy right upper lobe and right basilar infiltrate. Basilar left infiltrate. Pro-calcitonin was 0.05. Sputum culture is pending. White count 11.0. Hemoglobin 12.7. INR 2.0. Sodium 139. Potassium 3.9. Creatinine 0.89. Continued on DuoNeb inhalations, Pulmicort inhalations. Anticoagulated with warfarin. Antibiotics in the form of cefepime and azithromycin. Patient is seen today 07/15/2021 in follow-up on the regular medical floor. Awake and alert in no acute distress. Currently sitting up in bed. Doing about the same today as compared to yesterday. Maintaining O2 saturations in the 90s on 3 L/m per nasal cannula. Sputum culture pending. INR 1.4. He is continued on DuoNeb inhalations, Pulmicort inhalations, antibiotics in form of cefepime and azithromycin. Warfarin dosed by pharmacy. Objective - Vital Signs Vital signs: Vital Signs Temp 97.8 F 07/15/21 04:17 Pulse 60 07/15/21 11:08 Resp 20 07/15/21 04:17 BP 127/81 07/15/21 08:37 Pulse Ox 99 07/15/21 07:12 Intake & Output 07/14/21 07/15/21 07/15/21 18:59 06:59 18:59 Intake Total 2560 237 Output Total 200 Balance 2560 37 Intake: Intake, IV Titration 900 Amount Azithromycin 500 mg In 500 Sodium Chloride 0.9% 250 ml @ 250 mls/hr IVPB [facility] Rx#:[id number] Cefepime 2 gm In Sodium 400 Chloride 0.9% 100 ml @ 25 mls/hr IVPB Q8HR [facility] Rx# :[id number] Oral 1660 237 Output: Urine 200 Other: Voiding Method Urinal Urinal Diaper Diaper Incontinent Incontinent # Voids 4 1 - Exam GENERAL EXAM: Alert, pleasant 81-year-old gentleman, on 3 L nasal cannula, up in a chair at the bedside, comfortable in no apparent distress. HEAD: Normocephalic. EYES: Normal reaction of pupils, equal size. NOSE: Clear with pink turbinates. THROAT: No erythema or exudates. NECK: No masses, no JVD. CHEST: No chest wall deformity. LUNGS: Equal air entry with bilateral scattered rhonchi, end expiratory wheeze, diminished CVS: S1 and S2 normal with no audible murmur, regular rhythm. ABDOMEN: No hepatosplenomegaly, normal bowel sounds, no guarding or rigidity. SPINE: No scoliosis or deformity SKIN: No rashes CENTRAL NERVOUS SYSTEM: No focal deficits, tone is normal in all 4 extremities. EXTREMITIES: There is no peripheral edema. No clubbing, no cyanosis. Periph eral pulses are intact. - Labs CBC & Chem 7: 07/14/21 05:58 07/14/21 05:58 Labs: Abnormal Lab Results - Last 24 Hours (Table) 07/15/21 07/15/21 Range/Units 06:05 06:32 PT 15.2 H (9.9-11.9) sec INR 1.40 H (0.90-1.11) Urine Protein Trace H (Negative) Urine Ketones Trace H (Negative) Urine Blood Moderate H (Negative) Urine RBC 7 H (0-5) /hpf Urine Mucus Rare H (None) /hpf Microbiology - Last 24 Hours (Table) 07/13/21 21:48 Sputum Culture - Preliminary Sputum Assessment and Plan Assessment: 1 Acute hypoxemic respiratory failure and acute exacerbation of chronic obstructive pulmonary disease and suspected early pneumonia. Though pro calcitonin 0.05. 2 Mildly impaired left ventricular systolic function with ejection fraction 45- 50%. 3 Rule out possibility of urinary tract infection, patient is covered with Rocephin 4 Chronic A. 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 He has since been vac cinated and boosted. Plan: The patient was seen and evaluated Stable and on 3 L nasal cannula Continue cefepime and azithromycin Follow-up chest x-ray in the a.m. We will continue to follow I, the cosigning physician, performed a history & physical examination of the patient. Lungs sounds with bilateral end expiratory wheeze, bilateral rhonchi. Maintaining good O2 saturations in the 90s on 3 L/m per nasal cannula. I discussed the assessment and plan of care with my nurse practitioner, Kia Driscoll. I attest to the above note as dictated by her.
--- NOTE | 2021-07-15 14:31 | P.PN ---
Subjective Progress Note Date: 07/15/21 This is a pleasant 81 years old male with past medical history of Atrial Fibrillation, on warfarin, COPD, GERD/Reflux, Hyperlipidemia, Hypertension, Pneumonia, BPH, COPD with an FEV1 of 45% of predicted, chronic back pain, chronic neck pain with radiculopathy and numbness and tingling involving the right upper extremity and the hand and the lower extremities, history of childhood left eye injury with limited vision involving the left eye.s/p cervical decompression/discectomy and fusion with bone graft, Patient presents because of dyspnea and expiratory wheezing Patient is poor historian. He is oriented to place only as he knows in the hospital but he thought it is [place] and he could not tell the name of the president. He could not remember all the details but he knew that he came because of dyspnea and some chest pain with coughing. Currently he does not have chest pain. Also he states he makes some phlegm but he wasn't sure. He states he does not use oxygen at home. He walks wheezing a walker. He denies any urinary symptoms. No diarrhea or vomiting. He denies smoking, alcohol or illicit drugs at home. Vitas looks stable and he is saturating 95% on 4 L oxygen via nasal cannula. And the presentation he was tachypneic around 28-30 breath per minutes, now is better at 20 breaths per minute labs showed mild leukocytosis with 11.1, INR is elevated 3.3, hemoglobin and platelets are stable and normal. Rest of BMP is unremarkable and troponin are negative with less than 0.012. ProBNP is 864. Coronavirus not detected EKG showing atrial fibrillation's with PVC and aberrant conduction complexes at a rate of 99 and QTC 449, no significant ST-T changes Chest x-ray: COPD, mild interstitial infiltrates in the right upper lobe. Improved interstitial infiltrates in the lower lungs In the emergency room patient was started on Zithromax and ceftriaxone as well as a steroids 07/13/2021 Patient evaluated today sitting up in the chair. He states breathing is improved from yesterday. Continues with green/brown sputum, collection cup at bedside. Otherwise no acute events overnight and no acute complaints today. 97% on 4L NC, wears oxygen as needed at [facility]. We can wean this oxygen down as tolerated. Procalcitonin level 0.05 which is not suggestive of bacterial infection. No labs from today. Continues on antibiotics, steroids. 07/14/2021 Patient elevated today sitting up in the chair he is requesting to go back to bed as he is tired. No acute events overnight. Sputum cultures all pending, patient still reports cough with greenish brown sputum. He is alert 2 unable to tell me the year but mostly he has had poor hearing hospital. White count today 11, INR 2, resumed Coumadin today, electrolytes are within normal limits. He is afebrile, heart rate 65, blood pressure 114/75, 100% on 3 L nasal cannula continue to wean this as tolerated. Repeat chest x-ray today shows mild patchy right upper lobe and right basilar infiltrate, slight worsening and left basilar infiltrate. Continues IV azithromycin and IV cefepime. He is being followed closely by pulmonary services. Urinalysis has been ordered and not collected yet. 07/15/2021 Patient evaluated today resting in bed. He states that he does not favor one side and he is tired. No acute events overnight. Sputum cultures are pending reports cough with less sputum production. INR today 1.4, he is on Coumadin dosed by pharmacy which was resumed yesterday. He is being followed closely by pulmonary services. Continues on antibiotics in the form of IV cefepime and was transitioned to by mouth azithromycin today. Patient afebrile, heart rate 61, blood pressure 140/85 and he is 97% on 3 L nasal cannula which can be continued to wean as tolerated. Urinalysis yesterday shows clear urine with trace protein, trace ketones, moderate blood no evidence for infection. ROS Constitutional: Denied any fatigue denied any fever. Cardio vascular: denied any chest pain, palpitations Gastrointestinal denied any nausea vomiting Pulmonary: Reports mild dyspnea with exertion, reports productive cough which is improving Neurologic denied any new focal deficits All inpatient medications were reviewed and appropriate changes in these medications as dictated in the interval history and assessment and plan. PHYSICAL EXAMINATION: GENERAL: The patient is alert and oriented x3, not in any acute distress. Well developed, well nourished. HEENT: Pupils are round and equally reacting to light. EOMI. No scleral icterus. No conjunctival pallor. Normocephalic, atraumatic. No pharyngeal erythema. No thyromegaly. CARDIOVASCULAR: S1 and S2 present. No murmurs, rubs, or gallops. PULMONARY: scattered expiratory wheeze, coarse lung sounds ABDOMEN: Soft, nontender, nondistended, normoactive bowel sounds. No palpable organomegaly. MUSCULOSKELETAL: No joint swelling or deformity. EXTREMITIES: No cyanosis, clubbing, or pedal edema. NEUROLOGICAL: Gross neurological examination did not reveal any focal deficits. SKIN: No rashes. Assessment and Plan Assessment: Acute COPD exacerbation, noncompliant with home oxygen, currently on 3l NC Possible early right upper community acquired pneumonia, procalcitonin level 0.05 Coagulopathy secondary to Coumadin, resolved, INR 1.4 today, coumadin resumed Hematuria possibly related to coagulopathy, continue to monitor Chronic atrial fibrillation on Coumadin History of chronic systolic congestive heart failure, most recent echo in June of 2020 shows low normal EF of 50-50% Memory impairment 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 History of GERD Hypertension Hyperlipidemia History of BPH History of chronic neck pain with radiculopathy History of tobacco use Plan: Continue with steroids, bronchodilator Pulmonary consult Continue with ceftriaxone and Zithromax, pending sputum culture Repeat labs, PT/INR in morning Chest xray in AM DVT prophylaxis: On Coumadin, resumed GI Prophylaxis: Ppi PT/OT: Return to ECF with 01/01 care Prognosis is guarded Objective - Vital Signs Vital signs: Vital Signs Temp 97.8 F 07/15/21 04:17 Pulse 78 07/15/21 08:37 Resp 20 07/15/21 04:17 BP 127/81 07/15/21 08:37 Pulse Ox 99 07/15/21 07:12 Intake & Output 07/14/21 07/15/21 07/15/21 18:59 06:59 18:59 Intake Total 2560 237 Output Total 200 Balance 2560 37 Intake: Intake, IV Titration 900 Amount Azithromycin 500 mg In 500 Sodium Chloride 0.9% 250 ml @ 250 mls/hr IVPB DAILY [facility] Rx#:[id number] Cefepime 2 gm In Sodium 400 Chloride 0.9% 100 ml @ 25 mls/hr IVPB Q8HR [facility] Rx# :[id number] Oral 1660 237 Output: Urine 200 Other: Voiding Method Urinal Urinal Diaper Diaper Incontinent Incontinent # Voids 4 1 - Labs CBC & Chem 7: 07/14/21 05:58 07/14/21 05:58 Labs: Abnormal Lab Results - Last 24 Hours (Table) 07/15/21 Range/Units 06:05 Urine Protein Trace H (Negative) Urine Ketones Trace H (Negative) Urine Blood Moderate H (Negative) Urine RBC 7 H (0-5) /hpf Urine Mucus Rare H (None) /hpf Microbiology - Last 24 Hours (Table) 07/13/21 21:48 Sputum Culture - Preliminary Sputum
[2021-07-15] MEDS ORDERED: WARFARIN 3 MG TAB PO ONE (18:00)
[2021-07-15] MEDS: CHOLECALCIFEROL 25 MCG (1000 IU) TABLET PO SCH (20:34)
[2021-07-15] MEDS: TAMSULOSIN 0.4 MG CAP.ER.24H PO SCH (20:34)
[2021-07-15] MEDS: ATORVASTATIN 20 MG TAB PO SCH (20:34)
[2021-07-16] MEDS: IPRATROPIUM-ALBUTEROL 3 ML NEB INHALATION SCH ×6 (02:09→22:48)
[2021-07-16] MEDS: FUROSEMIDE 20 MG TAB PO SCH (05:44)
[2021-07-16] MEDS: PANTOPRAZOLE 40 MG TABLET PO SCH (05:44)
--- NOTE | 2021-07-16 06:53 | XR ---
EXAMINATION TYPE: XR chest 1V portable DATE OF EXAM: 07/16/2021 CLINICAL HISTORY: Difficulty breathing an CHF progress study. TECHNIQUE: Single AP portable upright view of the chest is obtained. COMPARISON: Chest x-ray from 2 days earlier and older studies FINDINGS: Stable mild cardiomegaly. Background chronic emphysematous and pulmonary fibrotic changes redemonstrated with improving right upper lung and left greater than right bibasilar opacities. Long segment fusion plate in cervical spine is noted. IMPRESSION: Chronic emphysematous and pulmonary fibrotic changes along with mild cardiomegaly redemon strated. Improving right upper lung and left greater than right bibasilar infiltrates noted.
[2021-07-16] MEDS: DILTIAZEM CD 120 MG CAP.ER.24H PO SCH (08:59)
[2021-07-16] MEDS: CEFEPIME 2 GM in SODIUM CHLORIDE 0.9% 100 ML IVPB SCH ×2 (08:59→17:02)
[2021-07-16] MEDS: AZITHROMYCIN 500 MG TAB PO SCH (08:59)
[2021-07-16] MEDS: ASPIRIN 81 MG PO SCH (08:59)
[2021-07-16] MEDS: METOPROLOL TARTRATE 25 MG TAB PO SCH ×2 (09:00→20:37)
[2021-07-16] MEDS: FOLIC ACID 1 MG TAB PO SCH (09:00)
[2021-07-16] MEDS: BUDESONIDE 0.5 MG/2 ML NEBU INHALATION SCH ×2 (09:19→19:56)
[2021-07-16 09:31] LABS: INR 1.26 (0.90-1.11); Prothrombin Time 13.7 sec (9.9-11.9)
--- NOTE | 2021-07-16 14:13 | P.PN ---
Subjective Progress Note Date: 07/16/21 This is a very pleasant 80-year-old male patient with multiple medical problems including COPD with baseline FEV1 of 45% of predicted, chronic A. fib with history of ablation, and patient reverted back to A. fib, on Coumadin for anticoagulation, hypertension, hyperlipidemia, former smoker, chronic back pain and chronic neck pain. He has been currently residing at [facility] on the [address] and they brought him here by EMS yesterday feeling he was short of breath and had oxygen saturations in the low 80s. He is seen today in consultation emergency department. He's currently sitting up in a stretcher. Awake and alert. He has a active cough of greenish brown sputum. He's shortness of breath with minimal conversation. Currently maintaining O2 saturations in the mid 90s on 4 L/m per nasal cannula. Afebrile. Hemodynamically stable. Chest x-ray reveals evidence of COPD. Mild interstitial infiltrates in the right upper lobe. Improving interstitial infiltrates on our lungs compared to 06/25/2021. White count 11.1. Hemoglobin 13.5. INR 3.3. Sodium 137. Potassium 4.5. Creatinine 0.89. Co myrna virus by PCR negative. He's been initiated on ceftriaxone and azithromycin. DuoNeb inhalations, Pulmicort inhalations. The patient is seen today 07/13/2021 in follow-up on the regular medical floor. He is currently sitting up in a chair at the bedside. Awake and alert in no acute distress. Breathing a bit easier today compared to yesterday. He was admitted for acute hypoxemic respiratory failure with acute exacerbation of COPD and suspected early pneumonia. He is currently maintaining O2 saturations in the 90s on 4 L/m per nasal cannula. He is afebrile. Hemodynamically stable. Pro-calcitonin 0.05. No new labs today. He is continued on cefepime and azithromycin. He remains on DuoNeb inhalations, Pulmicort inhalations. The patient is seen today 07/14/2021 in follow-up on the regular medical floor. He is awake and alert in no acute distress. Sitting up in a chair at the bedside. Maintaining O2 saturations up to 100% on 3 L/m per nasal cannula. Follow up chest x-ray reveals mild patchy right upper lobe and right basilar infiltrate. Basilar left infiltrate. Pro-calcitonin was 0.05. Sputum culture is pending. White count 11.0. Hemoglobin 12.7. INR 2.0. Sodium 139. Potassium 3.9. Creatinine 0.89. Continued on DuoNeb inhalations, Pulmicort inhalations. Anticoagulated with warfarin. Antibiotics in the form of cefepime and azithromycin. Patient is seen today 07/15/2021 in follow-up on the regular medical floor. Awake and alert in no acute distress. Currently sitting up in bed. Doing about the same today as compared to yesterday. Maintaining O2 saturations in the 90s on 3 L/m per nasal cannula. Sputum culture pending. INR 1.4. He is continued on DuoNeb inhalations, Pulmicort inhalations, antibiotics in form of cefepime and azithromycin. Warfarin dosed by pharmacy. 07/16/2021, I'm seeing the patient for a follow-up. Still requiring oxygen at 3 L. Limited improvement in his condition. Cough has become less congested. No chest pain. No fever or chills. No new labs otherwise from today. The most recent chest x-ray from today is showing COPD along with some improvement in the right upper lobe and bibasilar pulmonary infiltrates. There is obvious background COPD. The patient remains on a combination of cefepime and Zithrom ax. No other new complaints otherwise for now. He remains on Lasix milligrams by mouth daily. He is on DuoNeb nebulized treatments around the clock. Remains on long-term and to coagulation with warfarin and the PT/INR is being monitored by the primary care physician team and INR today is at 1.26 and further adjustment of those will be done. Objective - Vital Signs Vital signs: Vital Signs Temp 97.6 F 07/16/21 11:30 Pulse 66 07/16/21 13:17 Resp 16 07/16/21 11:30 BP 117/65 07/16/21 11:30 Pulse Ox 97 07/16/21 11:30 Intake & Output 07/15/21 07/16/21 07/16/21 18:59 06:59 18:59 Intake Total 100 Output Total 600 500 Balance -600 100 -500 Intake: Intake, IV Titration 100 Amount Cefepime 2 gm In Sodium 100 Chloride 0.9% 100 ml @ 25 mls/hr IVPB Q8HR [facility] Rx# :[id number] Output: Urine 600 500 Other: Voiding Method Urinal Diaper # Voids 1 - Exam GENERAL EXAM: Alert, pleasant 81-year-old gentleman, on 3 L nasal cannula, up in a chair at the bedside, comfortable in no apparent distress. HEAD: Normocephalic. EYES: Normal reaction of pupils, equal size. NOSE: Clear with pink turbinates. THROAT: No erythema or exudates. NECK: No masses, no JVD. CHEST: No chest wall deformity. LUNGS: Equal air entry with bilateral scattered rhonchi, end expiratory wheeze, diminished CVS: S1 and S2 normal with no audible murmur, regular rhythm. ABDOMEN: No hepatosplenomegaly, normal bowel sounds, no guarding or rigidity. SPINE: No scoliosis or deformity SKIN: No rashes CENTRAL NERVOUS SYSTEM: No focal deficits, tone is normal in all 4 extremities. EXTREMITIES: There is no peripheral edema. No clubbing, no cyanosis. Peripheral pulses are intact. - Labs CBC & Chem 7: 07/14/21 05:58 07/14/21 05:58 Labs: Abnormal Lab Results - Last 24 Hours (Table) 07/16/21 Range/Units 06:22 PT 13.7 H (9.9-11.9) sec INR 1.26 H (0.90-1.11) Microbiology - Last 24 Hours (Table) 07/13/21 21:48 Gram Stain - Final Sputum Sputum Culture - Final Assessment and Plan Plan: 1 Acute hypoxemic respiratory failure and acute exacerbation of chronic obstructive pulmonary disease and suspected early pneumonia. The Proteus level was nonelevated. The patient was treated with antibiotics and the patient chest x-ray continues to improve. 2 Mildly impaired left ventricular systolic function with ejection fraction 45- 50%. 3 Rule out possibility of urinary tract infection, patient is covered with Rocephin 4 Chronic A. 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 He has since been vaccinated and boosted. Plan: The chest x-ray is improving Keep same antibiotic coverage Stable and on 3 L nasal cannula Continue cefepime and azithromycin Continue bronchodilators We will continue to follow
--- NOTE | 2021-07-16 15:51 | P.PN ---
Subjective Progress Note Date: 07/16/21 This is a pleasant 81 years old male with past medical history of Atrial Fibrillation, on warfarin, COPD, GERD/Reflux, Hyperlipidemia, Hypertension, Pneumonia, BPH, COPD with an FEV1 of 45% of predicted, chronic back pain, chronic neck pain with radiculopathy and numbness and tingling involving the right upper extremity and the hand and the lower extremities, history of childhood left eye injury with limited vision involving the left eye.s/p cervical decompression/discectomy and fusion with bone graft, Patient presents because of dyspnea and expiratory wheezing Patient is poor historian. He is oriented to place only as he knows in the hospital but he thought it is [place] and he could not tell the name of the president. He could not remember all the details but he knew that he came because of dyspnea and some chest pain with coughing. Currently he does not have chest pain. Also he states he makes some phlegm but he wasn't sure. He states he does not use oxygen at home. He walks wheezing a walker. He denies any urinary symptoms. No diarrhea or vomiting. He denies smoking, alcohol or illicit drugs at home. Vitas looks stable and he is saturating 95% on 4 L oxygen via nasal cannula. And the presentation he was tachypneic around 28-30 breath per minutes, now is better at 20 breaths per minute labs showed mild leukocytosis with 11.1, INR is elevated 3.3, hemoglobin and platelets are stable and normal. Rest of BMP is unremarkable and troponin are negative with less than 0.012. ProBNP is 864. Coronavirus not detected EKG showing atrial fibrillation's with PVC and aberrant conduction complexes at a rate of 99 and QTC 449, no significant ST-T changes Chest x-ray: COPD, mild interstitial infiltrates in the right upper lobe. Improved interstitial infiltrates in the lower lungs In the emergency room patient was started on Zithromax and ceftriaxone as well as a steroids 07/13/2021 Patient evaluated today sitting up in the chair. He states breathing is improved from yesterday. Continues with green/brown sputum, collection cup at bedside. Otherwise no acute events overnight and no acute complaints today. 97% on 4L NC, wears oxygen as needed at [facility]. We can wean this oxygen down as tolerated. Procalcitonin level 0.05 which is not suggestive of bacterial infection. No labs from today. Continues on antibiotics, steroids. 07/14/2021 Patient elevated today sitting up in the chair he is requesting to go back to bed as he is tired. No acute events overnight. Sputum cultures all pending, patient still reports cough with greenish brown sputum. He is alert 2 unable to tell me the year but mostly he has had poor hearing hospital. White count today 11, INR 2, resumed Coumadin today, electrolytes are within normal limits. He is afebrile, heart rate 65, blood pressure 114/75, 100% on 3 L nasal cannula continue to wean this as tolerated. Repeat chest x-ray today shows mild patchy right upper lobe and right basilar infiltrate, slight worsening and left basilar infiltrate. Continues IV azithromycin and IV cefepime. He is being followed closely by pulmonary services. Urinalysis has been ordered and not collected yet. 07/15/2021 Patient evaluated today resting in bed. He states that he does not favor one side and he is tired. No acute events overnight. Sputum cultures are pending reports cough with less sputum production. INR today 1.4, he is on Coumadin dosed by pharmacy which was resumed yesterday. He is being followed closely by pulmonary services. Continues on antibiotics in the form of IV cefepime and was transitioned to by mouth azithromycin today. Patient afebrile, heart rate 61, blood pressure 140/85 and he is 97% on 3 L nasal cannula which can be continued to wean as tolerated. Urinalysis yesterday shows clear urine with trace protein, trace ketones, moderate blood no evidence for infection. 07/16/2021 Patient evaluated today resting in bed, he does appear more fatigued than yesterday. Chest x-ray shows improvement today however he still continues in 2- 3 L of nasal cannula. There is wheezing and coarse rhonchi noted on lung sounds. He is now cough is minimal to none sputum production which is improved. Sputum culture unfortunately was not a deep sputum culture and will not be reliable. Continues on IV cefepime and PO azithromycin. INR today 1.26 patient is on coumadin dosed by pharmacy. He is being followed closely by pulmonary services. Vital signs today show afebrile, heart rate 68, blood pressure 117/65 and he is 97% on 3 L cannula. ROS Constitutional: Denied any fatigue denied any fever. Cardio vascular: denied any chest pain, palpitations Gastrointestinal denied any nausea vomiting Pulmonary: Reports mild dyspnea with exertion, reports productive cough which is improving Neurologic denied any new focal deficits All inpatient medications were reviewed and appropriate changes in these medic ations as dictated in the interval history and assessment and plan. PHYSICAL EXAMINATION: GENERAL: The patient is alert and oriented x3, not in any acute distress. Well developed, well nourished. HEENT: Pupils are round and equally reacting to light. EOMI. No scleral icterus. No conjunctival pallor. Normocephalic, atraumatic. No pharyngeal erythema. No thyromegaly. CARDIOVASCULAR: S1 and S2 present. No murmurs, rubs, or gallops. PULMONARY: scattered expiratory wheeze, coarse lung sounds ABDOMEN: Soft, nontender, nondistended, normoactive bowel sounds. No palpable organomegaly. MUSCULOSKELETAL: No joint swelling or deformity. EXTREMITIES: No cyanosis, clubbing, or pedal edema. NEUROLOGICAL: Gross neurological examination did not reveal any focal deficits. SKIN: No rashes. Assessment and Plan Assessment: Acute COPD exacerbation, noncompliant with home oxygen, currently on 3l NC Possible early right upper community acquired pneumonia, procalcitonin level 0.05 Coagulopathy secondary to Coumadin, resolved, coumadin resumed Hematuria possibly related to coagulopathy, continue to monitor Chronic atrial fibrillation on Coumadin History of chronic systolic congestive heart failure, most recent echo in June of 2020 shows low normal EF of 50-50% Memory impairment 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 History of GERD Hypertension Hyperlipidemia History of BPH History of chronic neck pain with radiculopathy History of tobacco use Plan: Continue with steroids, bronchodilator Pulmonary consult Continue with ceftriaxone and Zithromax Repeat labs, PT/INR in morning Chest xray in AM DVT prophylaxis: On Coumadin, resumed GI Prophylaxis: Ppi PT/OT: Return to ECF with 24/ care Prognosis is guarded Objective - Vital Signs Vital signs: Vital Signs Temp 97.4 F L 07/16/21 05:34 Pulse 68 07/16/21 09:30 Resp 18 07/16/21 05:34 BP 115/61 07/16/21 08:57 Pulse Ox 96 07/16/21 08:57 Intake & Output 07/15/21 07/16/21 07/16/21 18:59 06:59 18:59 Intake Total 100 Output Total 600 300 Balance -600 100 -300 Intake: Intake, IV Titration 100 Amount Cefepime 2 gm In Sodium 100 Chloride 0.9% 100 ml @ 25 mls/hr IVPB Q8HR [facility] Rx# :[id number] Output: Urine 600 300 Other: Voiding Method Urinal Diaper # Voids 1 - Labs CBC & Chem 7: 07/14/21 05:58 07/14/21 05:58 Labs: Abnormal Lab Results - Last 24 Hours (Table) 07/16/21 Range/Units 06:22 PT 13.7 H (9.9-11.9) sec INR 1.26 H (0.90-1.11) Microbiology - Last 24 Hours (Table) 07/13/21 21:48 Gram Stain - Final Sputum Sputum Culture - Final
[2021-07-16] MEDS ORDERED: WARFARIN 2 MG TAB PO ONE (18:00)
[2021-07-16] MEDS: ATORVASTATIN 20 MG TAB PO SCH (20:37)
[2021-07-16] MEDS: CHOLECALCIFEROL 25 MCG (1000 IU) TABLET PO SCH (20:37)
[2021-07-16] MEDS: TAMSULOSIN 0.4 MG CAP.ER.24H PO SCH (20:37)
[2021-07-17] MEDS: CEFEPIME 2 GM in SODIUM CHLORIDE 0.9% 100 ML IVPB SCH ×4 (01:25→22:56)
[2021-07-17] MEDS: IPRATROPIUM-ALBUTEROL 3 ML NEB INHALATION SCH ×5 (03:03→19:05)
[2021-07-17] MEDS: FUROSEMIDE 20 MG TAB PO SCH (05:37)
[2021-07-17] MEDS: PANTOPRAZOLE 40 MG TABLET PO SCH (05:37)
[2021-07-17] MEDS: METOPROLOL TARTRATE 25 MG TAB PO SCH ×2 (07:58→19:24)
[2021-07-17] MEDS: FOLIC ACID 1 MG TAB PO SCH (07:59)
[2021-07-17] MEDS: ASPIRIN 81 MG PO SCH (07:59)
[2021-07-17] MEDS: AZITHROMYCIN 500 MG TAB PO SCH (07:59)
[2021-07-17] MEDS: DILTIAZEM CD 120 MG CAP.ER.24H PO SCH (08:00)
[2021-07-17] MEDS: BUDESONIDE 0.5 MG/2 ML NEBU INHALATION SCH ×2 (08:19→19:53)
[2021-07-17 09:05] LABS: Basophils % (A) 0.7 %; Eosinophils # (A) 1.05 X 10*3/uL (0.04-0.35); Eosinophils % (A) 7.4 %; HCT 40.7 % (39.6-50.0); HGB 12.9 g/dL (13.0-17.0); Immature Grans, Automated 2.6 %; Lymphocytes # (A) 1.78 X 10*3/uL (0.90-5.00); Lymphocytes % (A) 12.6 %; MCH 28.5 pg (27.0-32.0); MCHC 31.7 g/dL (32.0-37.0); MCV 89.8 fL (80.0-97.0); Mean Platelet Volume 10.8 fL (9.5-12.2); Monocytes # (A) 1.33 X 10*3/uL (0.20-1.00); Monocytes % (A) 9.4 %; NRBC Per 100 WBC 0 /100 WBCS (0.0-0.0); Neutrophils # (A) 9.48 X 10*3/uL (1.80-7.70); Neutrophils % (A) 67.3 %; Platelet Count 248 X 10*3/uL (140-440); RBC 4.53 X 10*6/uL (4.40-5.60); RDW 14.3 % (11.5-14.5); WBC 14.11 X 10*3/uL (4.50-10.00)
[2021-07-17 10:04] LABS: INR 1.22 (0.90-1.11); Prothrombin Time 13.3 sec (9.9-11.9)
[2021-07-17] MEDS ORDERED: methylPREDNISolone SOD SUCCI 40 MG/ML 1 ML VIAL IV SCH (10:45)
[2021-07-17] MEDS: INSULIN ASPART (NovoLOG) 100 UNIT/ML VIAL SQ SCH ×3 (12:25→21:23)
[2021-07-17] MEDS ORDERED: FUROSEMIDE 10 MG/ML 2 ML VIAL IV ONE (13:10)
--- NOTE | 2021-07-17 13:19 | P.PN ---
Subjective Progress Note Date: 07/17/21 This is a pleasant 81 years old male with past medical history of Atrial Fibrillation, on warfarin, COPD, GERD/Reflux, Hyperlipidemia, Hypertension, Pneumonia, BPH, COPD with an FEV1 of 45% of predicted, chronic back pain, chronic neck pain with radiculopathy and numbness and tingling involving the right upper extremity and the hand and the lower extremities, history of childhood left eye injury with limited vision involving the left eye.s/p cervical decompression/discectomy and fusion with bone graft, Patient presents because of dyspnea and expiratory wheezing Patient is poor historian. He is oriented to place only as he knows in the hospital but he thought it is 1919 [place] and he could not tell the name of the president. He could not remember all the details but he knew that he came because of dyspnea and some chest pain with coughing. Currently he does not have chest pain. Also he states he makes some phlegm but he wasn't sure. He states he does not use oxygen at home. He walks wheezing a walker. He denies any urinary symptoms. No diarrhea or vomiting. He denies smoking, alcohol or illicit drugs at home. Vitas looks stable and he is saturating 95% on 4 L oxygen via nasal cannula. And the presentation he was tachypneic around 28-30 breath per minutes, now is better at 20 breaths per minute labs showed mild leukocytosis with 11.1, INR is elevated 3.3, hemoglobin and platelets are stable and normal. Rest of BMP is unremarkable and troponin are negative with less than 0.012. ProBNP is 864. Coronavirus not detected EKG showing atrial fibrillation's with PVC and aberrant conduction complexes at a rate of 99 and QTC 449, no significant ST-T changes Chest x-ray: COPD, mild interstitial infiltrates in the right upper lobe. Improved interstitial infiltrates in the lower lungs In the emergency room patient was started on Zithromax and ceftriaxone as well as a steroids 07/13/2021 Patient evaluated today sitting up in the chair. He states breathing is improved from yesterday. Continues with green/brown sputum, collection cup at bedside. Otherwise no acute events overnight and no acute complaints today. 97% on 4L NC, wears oxygen as needed at [facility]. We can wean this oxygen down as tolerated. Procalcitonin level 0.05 which is not suggestive of bacterial infection. No labs from today. Continues on antibiotics, steroids. 07/14/2021 Patient elevated today sitting up in the chair he is requesting to go back to bed as he is tired. No acute events overnight. Sputum cultures all pending, patient still reports cough with greenish brown sputum. He is alert 2 unable to tell me the year but mostly he has had poor hearing hospital. White count today 11, INR 2, resumed Coumadin today, electrolytes are within normal limits. He is afebrile, heart rate 65, blood pressure 114/75, 100% on 3 L nasal cannula continue to wean this as tolerated. Repeat chest x-ray today shows mild patchy right upper lobe and right basilar infiltrate, slight worsening and left basilar infiltrate. Continues IV azithromycin and IV cefepime. He is being followed closely by pulmonary services. Urinalysis has been ordered and not collected yet. 07/15/2021 Patient evaluated today resting in bed. He states that he does not favor one side and he is tired. No acute events overnight. Sputum cultures are pending reports cough with less sputum production. INR today 1.4, he is on Coumadin dosed by pharmacy which was resumed yesterday. He is being followed closely by pulmonary services. Continues on antibiotics in the form of IV cefepime and was transitioned to by mouth azithromycin today. Patient afebrile, heart rate 61, blood pressure 140/85 and he is 97% on 3 L nasal cannula which can be continued to wean as tolerated. Urinalysis yesterday shows clear urine with trace protein, trace ketones, moderate blood no evidence for infection. 07/16/2021 Patient evaluated today resting in bed, he does appear more fatigued than yesterday. Chest x-ray shows improvement today however he still continues in 2- 3 L of nasal cannula. There is wheezing and coarse rhonchi noted on lung sounds. He is now cough is minimal to none sputum production which is improved. Sputum culture unfortunately was not a deep sputum culture and will not be reliable. Continues on IV cefepime and PO azithromycin. INR today 1.26 patient is on coumadin dosed by pharmacy. He is being followed closely by pulmonary services. Vital signs today show afebrile, heart rate 68, blood pressure 117/65 and he is 97% on 3 L cannula. 07/17/2021 Patient evaluated today sitting up in bed. He is alert x2 able to tell me his name, , where he is, not the year. He seems more dyspneic today than yest erday. Sputum production has decreased but his weezing is worse with bilateral basilar crackles present and a congested cough. We will check a BNP and repeat procalcitonin. Patient continues on IV cefepime, added IV solumedrol today. He is on PO lasix daily, will given a small dose of IV lasix today. He has not been getting IV fluids there is no peripheral edema. He is on updrafts and pulmicort. He is being followed closely by pulmonary team. BNP is 652, INR 1.22 on coumadin, WBC today 14.11. We will also reswab for COVID. Afebrile, heart rate 76, blood pressure 120/74, 93% on 5L NC. Also repeat chest xray today. ROS Constitutional: Denied any fatigue denied any fever. Cardio vascular: denied any chest pain, palpitations Gastrointestinal denied any nausea vomiting Pulmonary: Reports mild dyspnea with exertion, reports productive cough which is improving Neurologic denied any new focal deficits All inpatient medications were reviewed and appropriate changes in these medications as dictated in the interval history and assessment and plan. PHYSICAL EXAMINATION: GENERAL: The patient is alert and oriented x2-3, mild respiratory distress. Well developed, well nourished. HEENT: Pupils are round and equally reacting to light. EOMI. No scleral icterus. No conjunctival pallor. Normocephalic, atraumatic. No pharyngeal erythema. No thyromegaly. CARDIOVASCULAR: S1 and S2 present. No murmurs, rubs, or gallops. PULMONARY: Scattered inspiratory and expiratory wheeze with bibasilar crackles ABDOMEN: Soft, nontender, nondistended, normoactive bowel sounds. No palpable organomegaly. MUSCULOSKELETAL: No joint swelling or deformity. EXTREMITIES: No cyanosis, clubbing, or pedal edema. NEUROLOGICAL: Gross neurological examination did not reveal any focal deficits. SKIN: No rashes. Assessment and Plan Assessment: Acute COPD exacerbation, noncompliant with home oxygen, now on 5L NC, on IV cefepime, added IV solumedrol today Possible early right upper community acquired pneumonia, procalcitonin level 0.05, repeat procalcitonin, continues on IV cefepime Leukocytosis, secondary to above, increasing up to 14.11 Coagulopathy secondary to Coumadin, resolved, coumadin resumed Hematuria possibly related to coagulopathy, continue to monitor Chronic atrial fibrillation on Coumadin History of chronic systolic congestive heart failure, most recent echo in June of 2020 shows low normal EF of 50-55% Memory impairment 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 History of GERD Hypertension Hyperlipidemia History of BPH History of chronic neck pain with radiculopathy History of tobacco use Plan: Chest Xray Oxygen support, titrate as needed Continue with bronchodilator, IV steroids added Pulmonary consult Continue with ceftriaxone and Zithromax IV lasix x1 one today Repeat labs, PT/INR in morning DVT prophylaxis: On Coumadin, resumed GI Prophylaxis: Ppi PT/OT: Return to [facility] with 01/01 care Prognosis is guarded Objective - Vital Signs Vital signs: Vital Signs Temp 97.8 F 07/17/21 12:24 Pulse 72 07/17/21 12:24 Resp 20 07/17/21 12:24 BP 120/74 07/17/21 12:24 Pulse Ox 93 L 07/17/21 12:24 Intake & Output 07/16/21 07/17/21 07/17/21 18:59 06:59 18:59 Intake Total 100 425 Output Total 700 200 Balance -600 425 -200 Intake: Intake, IV Titration 100 100 Amount Cefepime 2 gm In Sodium 100 100 Chloride 0.9% 100 ml @ 25 mls/hr IVPB Q8HR [facility] Rx# :[id number] Oral 325 Output: Urine 700 200 Other: Voiding Method Urinal Urinal Diaper Diaper Incontinent Incontinent # Voids 1 2 1 - Labs CBC & Chem 7: 07/17/21 06:29 07/14/21 05:58 Labs: Abnormal Lab Results - Last 24 Hours (Table) 07/17/21 07/17/21 Range/Units 06:29 06:29 WBC 14.11 H (4.50-10.00) X 10*3/uL Hgb 12.9 L (13.0-17.0) g/dL MCHC 31.7 L (32.0-37.0) g/dL Immature Gran # 0.37 H (0.00-0.04) X 10*3/uL Neutrophils # 9.48 H (1.80-7.70) X 10*3/uL Monocytes # 1.33 H (0.20-1.00) X 10*3/uL Eosinophils # 1.05 H (0.04-0.35) X 10*3/uL PT 13.3 H (9.9-11.9) sec INR 1.22 H (0.90-1.11)
[2021-07-17] MEDS ORDERED: FUROSEMIDE 10 MG/ML 4 ML VIAL IV SCH (13:30)
[2021-07-17 13:32] LABS: African American GFR (CKD) >90 (>60 ml/min/1.73 sqM); Anion Gap 5 mmol/L; Blood Urea Nitrogen 33 mg/dL (9-20); Calcium 8.9 mg/dL (8.4-10.2); Carbon Dioxide 29 mmol/L (22-30); Chloride 101 mmol/L (98-107); Glucose 120 mg/dL (74-99); Non-African American GFR(CKD) 87 (>60 ml/min/1.73 sqM); Potassium 4.3 mmol/L (3.5-5.1); Sodium 135 mmol/L (137-145)
--- NOTE | 2021-07-17 13:48 | XR ---
EXAMINATION TYPE: XR chest 2V DATE OF EXAM: 07/17/2021 COMPARISON: Chest x-ray from yesterday HISTORY: Cough and shortness of breath TECHNIQUE: Frontal and lateral views of the chest are obtained. FINDINGS: The osseous structures are demineralized. Anterior fusion plate in the cervical spine is r edemonstrated. Cardiac silhouette size upper limits of normal. Perhaps mild central vascular congesti on. Right apical pleural thickening. Patchy right basilar atelectasis. Left lower lung nodular opacit y on frontal view less well seen on lateral view. Consider follow-up x-ray. Severe compression type f racture deformity at roughly T10 level on lateral view. IMPRESSION: Chronic changes with mild central vascular congestion and patchy right basilar atelectas is.
--- NOTE | 2021-07-17 14:58 | P.PN ---
Subjective Progress Note Date: 07/17/21 This is a very pleasant 80-year-old male patient with multiple medical problems including COPD with baseline FEV1 of 45% of predicted, chronic A. fib with history of ablation, and patient reverted back to A. fib, on Coumadin for anticoagulation, hypertension, hyperlipidemia, former smoker, chronic back pain and chronic neck pain. He has been currently residing at [facility] on the [place] and they brought him here by EMS yesterday feeling he was short of breath and had oxygen saturations in the low 80s. He is seen today in consultation emergency department. He's currently sitting up in a stretcher. Awake and alert. He has a active cough of greenish brown sputum. He's shortness of breath with minimal conversation. Currently maintaining O2 saturations in the mid 90s on 4 L/m per nasal cannula. Afebrile. Hemodynamically stable. Chest x-ray reveals evidence of COPD. Mild interstitial infiltrates in the right upper lobe. Improving interstitial infiltrates on our lungs compared to 06/25/2021. White count 11.1. Hemoglobin 13.5. INR 3.3. Sodium 137. Potassium 4.5. Creatinine 0.89. Co myrna virus by PCR negative. He's been initiated on ceftriaxone and azithromycin. DuoNeb inhalations, Pulmicort inhalations. The patient is seen today 07/13/2021 in follow-up on the regular medical floor. He is currently sitting up in a chair at the bedside. Awake and alert in no acute distress. Breathing a bit easier today compared to yesterday. He was admitted for acute hypoxemic respiratory failure with acute exacerbation of COPD and suspected early pneumonia. He is currently maintaining O2 saturations in the 90s on 4 L/m per nasal cannula. He is afebrile. Hemodynamically stable. Pro-calcitonin 0.05. No new labs today. He is continued on cefepime and azithromycin. He remains on DuoNeb inhalations, Pulmicort inhalations. The patient is seen today 07/14/2021 in follow-up on the regular medical floor. He is awake and alert in no acute distress. Sitting up in a chair at the bedside. Maintaining O2 saturations up to 100% on 3 L/m per nasal cannula. Follow up chest x-ray reveals mild patchy right upper lobe and right basilar infiltrate. Basilar left infiltrate. Pro-calcitonin was 0.05. Sputum culture is pending. White count 11.0. Hemoglobin 12.7. INR 2.0. Sodium 139. Potassium 3.9. Creatinine 0.89. Continued on DuoNeb inhalations, Pulmicort inhalations. Anticoagulated with warfarin. Antibiotics in the form of cefepime and azithromycin. Patient is seen today 07/15/2021 in follow-up on the regular medical floor. Awake and alert in no acute distress. Currently sitting up in bed. Doing about the same today as compared to yesterday. Maintaining O2 saturations in the 90s on 3 L/m per nasal cannula. Sputum culture pending. INR 1.4. He is continued on DuoNeb inhalations, Pulmicort inhalations, antibiotics in form of cefepime and azithromycin. Warfarin dosed by pharmacy. 07/16/2021, I'm seeing the patient for a follow-up. Still requiring oxygen at 3 L. Limited improvement in his condition. Cough has become less congested. No chest pain. No fever or chills. No new labs otherwise from today. The most recent chest x-ray from today is showing COPD along with some improvement in the right upper lobe and bibasilar pulmonary infiltrates. There is obvious background COPD. The patient remains on a combination of cefepime and Zithrom ax. No other new complaints otherwise for now. He remains on Lasix milligrams by mouth daily. He is on DuoNeb nebulized treatments around the clock. Remains on long-term and to coagulation with warfarin and the PT/INR is being monitored by the primary care physician team and INR today is at 1.26 and further adjustment of those will be done. 07/17/2021, no new complaints. Feels that his lungs are still congested. Despite some improvement chest x-ray findings, clinically the patient is still complaining of some shortness of breath. He remains on anticoagulation with warfarin. PT/INR is suggested by the pharmacy team. The patient remains on accommodation assessment and Zithromax. He is also receiving DuoNeb nebulized treatment [id number]. He'll be given a dose of Lasix. Also started on IV Solu Medrol. Objective - Vital Signs Vital signs: Vital Signs Temp 97.8 F 07/17/21 12:24 Pulse 72 07/17/21 12:24 Resp 20 07/17/21 12:24 BP 120/74 07/17/21 12:24 Pulse Ox 93 L 07/17/21 12:24 Intake & Output 07/16/21 07/17/21 07/17/21 18:59 06:59 18:59 Intake Total 100 425 Output Total 700 200 Balance -600 425 -200 Intake: Intake, IV Titration 100 100 Amount Cefepime 2 gm In Sodium 100 100 Chloride 0.9% 100 ml @ 25 mls/hr IVPB Q8HR [facility] Rx# :[id number] Oral 325 Output: Urine 700 200 Other: Voiding Method Urinal Urinal Diaper Diaper Incontinent Incontinent # Voids 1 2 1 - Exam GENERAL EXAM: Alert, pleasant 81-year-old gentleman, on 3 L nasal cannula, up in a chair at the bedside, comfortable in no apparent distress. HEAD: Normocephalic. EYES: Normal reaction of pupils, equal size. NOSE: Clear with pink turbinates. THROAT: No erythema or exudates. NECK: No masses, no JVD. CHEST: No chest wall deformity. LUNGS: Equal air entry with bilateral scattered rhonchi, end expiratory wheeze, diminished CVS: S1 and S2 normal with no audible murmur, regular rhythm. ABDOMEN: No hepatosplenomegaly, normal bowel sounds, no guarding or rigidity. SPINE: No scoliosis or deformity SKIN: No rashes CENTRAL NERVOUS SYSTEM: No focal deficits, tone is normal in all 4 extremities. EXTREMITIES: There is no peripheral edema. No clubbing, no cyanosis. Peripheral pulses are intact. - Labs CBC & Chem 7: 07/17/21 06:29 07/17/21 06:29 Labs: Abnormal Lab Results - Last 24 Hours (Table) 07/17/21 07/17/21 07/17/21 Range/Units 06:29 06:29 06:29 WBC 14.11 H (4.50-10.00) X 10*3/uL Hgb 12.9 L (13.0-17.0) g/dL MCHC 31.7 L (32.0-37.0) g/dL Immature Gran # 0.37 H (0.00-0.04) X 10*3/uL Neutrophils # 9.48 H (1.80-7.70) X 10*3/uL Monocytes # 1.33 H (0.20-1.00) X 10*3/uL Eosinophils # 1.05 H (0.04-0.35) X 10*3/uL PT 13.3 H (9.9-11.9) sec INR 1.22 H (0.90-1.11) Sodium 135 L (137-145) mmol/L BUN 33 H (9-20) mg/dL Glucose 120 H (74-99) mg/dL Assessment and Plan Plan: 1 Acute hypoxemic respiratory failure and acute exacerbation of chronic ob structive pulmonary disease and suspected early pneumonia. The Proteus level was nonelevated. The patient was treated with antibiotics and the patient chest x-ray continues to improve. 2 Mildly impaired left ventricular systolic function with ejection fraction 45- 50%. 3 Rule out possibility of urinary tract infection, patient is covered with Rocephin 4 Chronic A. 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 He has since been vaccinated and boosted. Plan: The patient is still having trouble breathing. The chest x-ray is improving on yesterday's chest x-ray Keep same antibiotic coverage Continue bronchodilators We'll add Solu Medrol 40 mg every 6 hours, discontinue the oral prednisone Areas of Lasix 40 mg IV push Stable and on 3 L nasal cannula Continue cefepime and azithromycin Continue bronchodilators We will continue to follow
[2021-07-17 17:15] LABS: Glucose,Whole Blood 185 mg/dL (75-99)
[2021-07-17] MEDS: methylPREDNISolone SOD SUCCI 40 MG/ML 1 ML VIAL IV SCH (17:25)
[2021-07-17] MEDS ORDERED: WARFARIN 3 MG TAB PO ONE (18:00)
[2021-07-17] MEDS: CHOLECALCIFEROL 25 MCG (1000 IU) TABLET PO SCH (19:24)
[2021-07-17] MEDS: ATORVASTATIN 20 MG TAB PO SCH (19:24)
[2021-07-17] MEDS: TAMSULOSIN 0.4 MG CAP.ER.24H PO SCH (19:25)
[2021-07-17 21:23] LABS: Glucose,Whole Blood 155 mg/dL (75-99)
[2021-07-18] MEDS: methylPREDNISolone SOD SUCCI 40 MG/ML 1 ML VIAL IV SCH ×3 (00:10→13:16)
[2021-07-18] MEDS: IPRATROPIUM-ALBUTEROL 3 ML NEB INHALATION SCH ×6 (01:34→19:49)
[2021-07-18] MEDS: PANTOPRAZOLE 40 MG TABLET PO SCH (05:00)
[2021-07-18] MEDS: BUDESONIDE 0.5 MG/2 ML NEBU INHALATION SCH ×2 (07:18→19:58)
[2021-07-18 07:21] LABS: Glucose,Whole Blood 146 mg/dL (75-99)
[2021-07-18 07:59] LABS: INR 1.3 (<1.2); Prothrombin Time 13.3 sec (9.0-12.0)
[2021-07-18] MEDS: DILTIAZEM CD 120 MG CAP.ER.24H PO SCH (08:24)
[2021-07-18] MEDS: INSULIN ASPART (NovoLOG) 100 UNIT/ML VIAL SQ SCH ×4 (08:24→22:31)
[2021-07-18] MEDS: AZITHROMYCIN 500 MG TAB PO SCH (08:24)
[2021-07-18] MEDS: METOPROLOL TARTRATE 25 MG TAB PO SCH ×2 (08:24→22:27)
[2021-07-18] MEDS: CEFEPIME 2 GM in SODIUM CHLORIDE 0.9% 100 ML IVPB SCH ×2 (08:24→17:41)
[2021-07-18] MEDS: ASPIRIN 81 MG PO SCH (08:24)
[2021-07-18] MEDS: FOLIC ACID 1 MG TAB PO SCH (08:24)
[2021-07-18] MEDS: FUROSEMIDE 10 MG/ML 4 ML VIAL IV SCH ×2 (08:51→22:28)
[2021-07-18] MEDS ORDERED: predniSONE 20 MG TAB PO SCH (09:00)
--- NOTE | 2021-07-18 10:04 | XR ---
EXAMINATION TYPE: XR chest 1V portable DATE OF EXAM: 07/18/2021 Comparison: 07/17/2021 Clinical History: 81-year-old male hypoxia, possible aspiration Findings: ACDF hardware. Biapical pleural parenchymal scarring, right greater than left, is redemonstrated. Hea rt upper limits of normal in size. Some focal right mid to lower lung nodularity and left perihilar n odularity is redemonstrated. Aeration slightly improved in the lower lungs. Hyperinflation. Impression: 1. Suspect underlying COPD. 2. Interstitial changes especially in the lower lungs show slight improvement. 3. Nodularity redemonstrated. Refer to recommendations on PET/CT of 08/13/[address] follo w-up surveillance.
[2021-07-18 10:57] LABS: ABG Base Excess 7.3 mmol/L; ABG HCO3 31 mmol/L (21-25); ABG Oxygen Saturation 98.8 % (94-97); ABG PCO2 41 mmHg (35-45); ABG PH 7.48 (7.35-7.45); ABG PO2 99 mmHg (83-108); ABG TCO2 32 mmol/L (19-24); Allen Test Performed? Yes
[2021-07-18 11:02] LABS: African American GFR (CKD) 97.1 (60.0-200.0); Anion Gap 12.9 mmol/L (10.00-18.00); BUN/Creat Ratio 47.5 Ratio (12.00-20.00); Calcium 9.7 mg/dL (8.7-10.3); Carbon Dioxide 27.1 mmol/L (20.0-27.5); Non-African American GFR(CKD) 83.8 (60.0-200.0); Potassium 4.7 mmol/L (3.5-5.5)
[2021-07-18 11:45] LABS: Glucose,Whole Blood 146 mg/dL (75-99)
--- NOTE | 2021-07-18 13:19 | P.PN ---
Subjective Progress Note Date: 07/18/21 This is a pleasant 81 years old male with past medical history of Atrial Fibrillation, on warfarin, COPD, GERD/Reflux, Hyperlipidemia, Hypertension, Pneumonia, BPH, COPD with an FEV1 of 45% of predicted, chronic back pain, chronic neck pain with radiculopathy and numbness and tingling involving the right upper extremity and the hand and the lower extremities, history of childhood left eye injury with limited vision involving the left eye.s/p cervical decompression/discectomy and fusion with bone graft, Patient presents because of dyspnea and expiratory wheezing Patient is poor historian. He is oriented to place only as he knows in the hospital but he thought it is 1919 oh and he could not tell the name of the president. He could not remember all the details but he knew that he came because of dyspnea and some chest pain with coughing. Currently he does not have chest pain. Also he states he makes some phlegm but he wasn't sure. He states he does not use oxygen at home. He walks wheezing a walker. He denies any urinary symptoms. No diarrhea or vomiting. He denies smoking, alcohol or illicit drugs at home. Vitas looks stable and he is saturating 95% on 4 L oxygen via nasal cannula. And the presentation he was tachypneic around 28-30 breath per minutes, now is better at 20 breaths per minute labs showed mild leukocytosis with 11.1, INR is elevated 3.3, hemoglobin and platelets are stable and normal. Rest of BMP is unremarkable and troponin are negative with less than 0.012. ProBNP is 864. Coronavirus not detected EKG showing atrial fibrillation's with PVC and aberrant conduction complexes at a rate of 99 and QTC 449, no significant ST-T changes Chest x-ray: COPD, mild interstitial infiltrates in the right upper lobe. Improved interstitial infiltrates in the lower lungs In the emergency room patient was started on Zithromax and ceftriaxone as well as a steroids 07/13/2021 Patient evaluated today sitting up in the chair. He states breathing is improved from yesterday. Continues with green/brown sputum, collection cup at bedside. Otherwise no acute events overnight and no acute complaints today. 97% on 4L NC, wears oxygen as needed at [facility]. We can wean this oxygen down as tolerated. Procalcitonin level 0.05 which is not suggestive of bacterial infection. No labs from today. Continues on antibiotics, steroids. 07/14/2021 Patient elevated today sitting up in the chair he is requesting to go back to bed as he is tired. No acute events overnight. Sputum cultures all pending, patient still reports cough with greenish brown sputum. He is alert 2 unable to tell me the year but mostly he has had poor hearing hospital. White count today 11, INR 2, resumed Coumadin today, electrolytes are within normal limits. He is afebrile, heart rate 65, blood pressure 114/75, 100% on 3 L nasal cannula continue to wean this as tolerated. Repeat chest x-ray today shows mild patchy right upper lobe and right basilar infiltrate, slight worsening and left basilar infiltrate. Continues IV azithromycin and IV cefepime. He is being followed closely by pulmonary services. Urinalysis has been ordered and not collected yet. 07/15/2021 Patient evaluated today resting in bed. He states that he does not favor one side and he is tired. No acute events overnight. Sputum cultures are pending reports cough with less sputum production. INR today 1.4, he is on Coumadin dosed by pharmacy which was resumed yesterday. He is being followed closely by pulmonary services. Continues on antibiotics in the form of IV cefepime and was transitioned to by mouth azithromycin today. Patient afebrile, heart rate 61, blood pressure 140/85 and he is 97% on 3 L nasal cannula which can be continued to wean as tolerated. Urinalysis yesterday shows clear urine with trace protein, trace ketones, moderate blood no evidence for infection. 07/16/2021 Patient evaluated today resting in bed, he does appear more fatigued than yesterday. Chest x-ray shows improvement today however he still continues in 2- 3 L of nasal cannula. There is wheezing and coarse rhonchi noted on lung sounds. He is now cough is minimal to none sputum production which is improved. Sputum culture unfortunately was not a deep sputum culture and will not be reliable. Continues on IV cefepime and PO azithromycin. INR today 1.26 patient is on coumadin dosed by pharmacy. He is being followed closely by pulmonary services. Vital signs today show afebrile, heart rate 68, blood pressure 117/65 and he is 97% on 3 L cannula. 07/17/2021 Patient evaluated today sitting up in bed. He is alert x2 able to tell me his name, , where he is, not the year. He seems more dyspneic today than yest erday. Sputum production has decreased but his weezing is worse with bilateral basilar crackles present and a congested cough. We will check a BNP and repeat procalcitonin. Patient continues on IV cefepime, added IV solumedrol today. He is on PO lasix daily, will given a small dose of IV lasix today. He has not been getting IV fluids there is no peripheral edema. He is on updrafts and pulmicort. He is being followed closely by pulmonary team. BNP is 652, INR 1.22 on coumadin, WBC today 14.11. We will also reswab for COVID. Afebrile, heart rate 76, blood pressure 120/74, 93% on 5L NC. Also repeat chest xray today. 07/18/2021 Patient evaluated in bed, he is alert 3. Still continues to be more dyspneic than the day prior, he is coughing now is congested per RN he was eating breakfast and patient felt his food went down wrong. He is on a 6 L high flow nasal cannula with oxygen saturation of 91%. Patient was recommended for BiPAP with 60% FiO2 however he is refusing at this time. He continues on HF cannula. We will attempt a bed side swallow and speech evaluation. Chest xray today shows suspect underlying COPD, interstitial changes especially in the lower lungs show slight improvement. Nodularity redemonstrated. Refer to recommendations on PET/CT scan 08/13/[address] follow up surveillance. Labs today show sodium 136, potassium 4.7, BUN 30, creatinine 0.8, blood glucose in the 140s. INR today 1.3. ABGs were taken which shows a pH of 7.48, pCO2 41, pO2 99, HCO3 31, total CO2 32 and oxygen saturation 98.8. Continue on updrafts, cefepime, IV Solu-Medrol, Pulmicort. He is also on lasix IV 40 mg Q12. ROS Constitutional: Denied any fatigue denied any fever. Cardio vascular: denied any chest pain, palpitations Gastrointestinal denied any nausea vomiting Pulmonary: Reports mild dyspnea with exertion, Congested cough Neurologic denied any new focal deficits All inpatient medications were reviewed and appropriate changes in these medications as dictated in the interval history and assessment and plan. PHYSICAL EXAMINATION: GENERAL: The patient is alert and oriented x2-3, mild respiratory distress. Well developed, well nourished. HEENT: Pupils are round and equally reacting to light. EOMI. No scleral icterus. No conjunctival pallor. Normocephalic, atraumatic. No pharyngeal erythema. No thyromegaly. CARDIOVASCULAR: S1 and S2 present. No murmurs, rubs, or gallops. PULMONARY: Scattered inspiratory and expiratory wheeze with bibasilar crackles, congested bronchospastic cough noted. ABDOMEN: Soft, nontender, nondistended, normoactive bowel sounds. No palpable organomegaly. MUSCULOSKELETAL: No joint swelling or deformity. EXTREMITIES: No cyanosis, clubbing, or pedal edema. NEUROLOGICAL: Gross neurological examination did not reveal any focal deficits. SKIN: No rashes. Assessment and Plan Assessment: Acute COPD exacerbation, noncompliant with home oxygen, now on 6L NC HF, on IV cefepime, added IV solumedrol today Possible early right upper lobe community acquired pneumonia, procalcitonin level 0.05, repeat procalcitonin negative as well, continues on IV cefepime and PO azithromycin Possible aspiration pneumonia on 6L HF cannula, currently NPO, awaiting speech bedside swallow evaluation Leukocytosis, secondary to above, increasing up to 14.11 Coagulopathy secondary to Coumadin, resolved, coumadin resumed Hematuria possibly related to coagulopathy, continue to monitor Chronic atrial fibrillation on Coumadin History of chronic systolic congestive heart failure, most recent echo in June of 2020 shows low normal EF of 50-55%, mild exacerbation now on IV lasix Enlarged right hilar lymph nodes found on CT scan in Jun, recommended at that time for repeat CT in 3 months Memory impairment 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 History of GERD Hypertension Hyperlipidemia History of BPH History of chronic neck pain with radiculopathy History of tobacco use Plan: Chest Xray Oxygen support, titrate as needed Continue with bronchodilator, IV steroids, IV lasix Pulmonary consult Continue with ceftriaxone and Zithromax Speech/bed side swallow evaluation Repeat labs, PT/INR in morning DVT prophylaxis: On Coumadin, resumed GI Prophylaxis: Ppi PT/OT: Return to [facility] with 24/7 care Prognosis is guarded Objective - Vital Signs Vital signs: Vital Signs Temp 97.8 F 07/18/21 12:49 Pulse 70 07/18/21 12:49 Resp 24 07/18/21 12:49 BP 110/75 07/18/21 12:49 Pulse Ox 95 07/18/21 12:49 Intake & Output 07/17/21 07/18/21 07/18/21 18:59 06:59 18:59 Intake Total 760 100 Output Total 200 Balance 560 100 Intake: Intake, IV Titration 200 100 Amount Cefepime 2 gm In Sodium 200 100 Chloride 0.9% 100 ml @ 25 mls/hr IVPB Q8HR [facility] Rx# :[id number] Oral 560 Output: Urine 200 Other: Voiding Method Urinal Urinal Urinal Diaper Diaper Diaper Incontinent Incontinent Incontinent # Voids 4 1 - Labs CBC & Chem 7: 07/17/21 06:29 07/18/21 06:48 Labs: Abnormal Lab Results - Last 24 Hours (Table) 07/17/21 07/17/21 07/17/21 Range/Units 06:29 17:09 20:55 PT (9.0-12.0) sec INR (<1.2) ABG pH (7.35-7.45) ABG HCO3 (21-25) mmol/L ABG Total CO2 (19-24) mmol/L ABG O2 Saturation (94-97) % Sodium 135 L (137-145) mmol/L BUN 33 H (9-20) mg/dL BUN/Creatinine Ratio (12.00-20.00) Ratio Glucose 120 H (74-99) mg/dL POC Glucose (mg/dL) 185 H 155 H (75-99) mg/dL 07/18/21 07/18/21 07/18/21 Range/Units 06:48 06:48 07:20 PT 13.3 H (9.0-12.0) sec INR 1.3 H (<1.2) ABG pH (7.35-7.45) ABG HCO3 (21-25) mmol/L ABG Total CO2 (19-24) mmol/L ABG O2 Saturation (94-97) % Sodium (137-145) mmol/L BUN 38.0 H (9-20) mg/dL BUN/Creatinine Ratio 47.50 H (12.00-20.00) Ratio Glucose 156 H (74-99) mg/dL POC Glucose (mg/dL) 146 H (75-99) mg/dL 07/18/21 07/18/21 Range/Units 10:48 11:44 PT (9.0-12.0) sec INR (<1.2) ABG pH 7.48 H (7.35-7.45) ABG HCO3 31 H (21-25) mmol/L ABG Total CO2 32 H (19-24) mmol/L ABG O2 Saturation 98.8 H (94-97) % Sodium (137-145) mmol/L BUN (9-20) mg/dL BUN/Creatinine Ratio (12.00-20.00) Ratio Glucose (74-99) mg/dL POC Glucose (mg/dL) 146 H (75-99) mg/dL
--- NOTE | 2021-07-18 13:32 | P.PN ---
Subjective Progress Note Date: 07/18/21 Principal diagnosis: Shortness of breath This is a very pleasant 80-year-old male patient with multiple medical problems including COPD with baseline FEV1 of 45% of predicted, chronic A. fib with history of ablation, and patient reverted back to A. fib, on Coumadin for anticoagulation, hypertension, hyperlipidemia, former smoker, chronic back pain and chronic neck pain. He has been currently residing at [facility] on the [place] and they brought him here by EMS yesterday feeling he was short of breath and had oxygen saturations in the low 80s. He is seen today in consultation emergency department. He's currently sitting up in a stretcher. Awake and alert. He has a active cough of greenish brown sputum. He's shortness of breath with minimal conversation. Currently maintaining O2 saturations in the mid 90s on 4 L/m per nasal cannula. Afebrile. Hemodynamically stable. Chest x-ray reveals evidence of COPD. Mild interstitial infiltrates in the right upper lobe. Improving interstitial infiltrates on our lungs compared to 06/25/2021. White count 11.1. Hemoglobin 13.5. INR 3.3. Sodium 137. Potassium 4.5. Creatinine 0.89. Tineo virus by PCR negative. He's been initiated on ceftriaxone and azithromycin. DuoNeb inhalations, Pulmicort inhalations. The patient is seen today 07/13/2021 in follow-up on the regular medical floor. He is currently sitting up in a chair at the bedside. Awake and alert in no acute distress. Breathing a bit easier today compared to yesterday. He was admitted for acute hypoxemic respiratory failure with acute exacerbation of COPD and suspected early pneumonia. He is currently maintaining O2 saturations in the 90s on 4 L/m per nasal cannula. He is afebrile. Hemodynamically stable. Pro-calcitonin 0.05. No new labs today. He is continued on cefepime and azithromycin. He remains on DuoNeb inhalations, Pulmicort inhalations. The patient is seen today 07/14/2021 in follow-up on the regular medical floor. He is awake and alert in no acute distress. Sitting up in a chair at the bedside. Maintaining O2 saturations up to 100% on 3 L/m per nasal cannula. Follow up chest x-ray reveals mild patchy right upper lobe and right basilar infiltrate. Basilar left infiltrate. Pro-calcitonin was 0.05. Sputum culture is pending. White count 11.0. Hemoglobin 12.7. INR 2.0. Sodium 139. Potassium 3.9. Creatinine 0.89. Continued on DuoNeb inhalations, Pulmicort inhalations. Anticoagulated with warfarin. Antibiotics in the form of cefepime and azithromycin. Patient is seen today 07/15/2021 in follow-up on the regular medical floor. Awake and alert in no acute distress. Currently sitting up in bed. Doing about the same today as compared to yesterday. Maintaining O2 saturations in the 90s on 3 L/m per nasal cannula. Sputum culture pending. INR 1.4. He is continued on DuoNeb inhalations, Pulmicort inhalations, antibiotics in form of cefepime and azithromycin. Warfarin dosed by pharmacy. 07/16/2021, I'm seeing the patient for a follow-up. Still requiring oxygen at 3 L. Limited improvement in his condition. Cough has become less congested. No chest pain. No fever or chills. No new labs otherwise from today. The most recent chest x-ray from today is showing COPD along with some improvement in the right upper lobe and bibasilar pulmonary infiltrates. There is obvious background COPD. The patient remains on a combination of cefepime and Zithromax. No other new complaints otherwise for now. He remains on Lasix milligrams by mouth daily. He is on DuoNeb nebulized treatments around the clock. Remains on long-term and to coagulation with warfarin and the PT/INR is being monitored by the primary care physician team and INR today is at 1.26 and further adjustment of those will be done. 07/17/2021, no new complaints. Feels that his lungs are still congested. Despite some improvement chest x-ray findings, clinically the patient is still complaining of some shortness of breath. He remains on anticoagulation with warfarin. PT/INR is suggested by the pharmacy team. The patient remains on accommodation assessment and Zithromax. He is also receiving DuoNeb nebulized treatment [id number]. He'll be given a dose of Lasix. Also started on IV Solu Medrol. On 07/18/2021 patient seen in follow-up on medical surgical floor, earlier this morning we had seen the patient in follow-up and he was quite wheezy, however her to be in no acute distress. Yesterday we added IV Solu-Medrol 40 mg every 6 hours, he was also given a dose of IV Lasix yesterday, his last chest x-ray showing central vascular congestion consistent with fluid overload. We will start the patient on maintenance dose Lasix 40 mg every 12 hours IV push. After couple hours patient started experiencing significant respiratory distress, and nursing staff have thought he may have aspirated, he was placed on a nonrebreather mask, because of his desaturation, his work of breathing was increased, another stat chest x-ray was obtained showing interstitial changes in the lower lungs with some slight improvement, nodularity in right mid to lower lung, and left perihilar nodularity redemonstrated. Patient was already on IV steroids, diuretics, he is already on antibiotics, we placed the patient on BiPAP support and ordered a blood gas which showed a pO2 of 99, pCO2 of 46, pH of 7.48 this was done on FiO2 of 60% and BiPAP settings of 12 and 5. Currently breathing easier. Objective - Vital Signs Vital signs: Vital Signs Temp 97.8 F 07/18/21 12:49 Pulse 70 07/18/21 12:49 Resp 24 07/18/21 12:49 BP 110/75 07/18/21 12:49 Pulse Ox 95 07/18/21 12:49 Intake & Output 07/17/21 07/18/21 07/18/21 18:59 06:59 18:59 Intake Total 760 100 Output Total 200 Balance 560 100 Intake: Intake, IV Titration 200 100 Amount Cefepime 2 gm In Sodium 200 100 Chloride 0.9% 100 ml @ 25 mls/hr IVPB Q8HR [facility] Rx# :[id number] Oral 560 Output: Urine 200 Other: Voiding Method Urinal Urinal Urinal Diaper Diaper Diaper Incontinent Incontinent Incontinent # Voids 4 1 - Exam GENERAL EXAM: Alert, thin built, chronically ill-looking, 81-year-old white male, on 5 L of oxygen, audibly wheezy but appearing to be not in any acute distress comfortable in no apparent distress. HEAD: Normocephalic/atraumatic. EYES: Normal reaction of pupils, equal size. Conjunctiva pink, sclera white. NOSE: Clear with pink turbinates. THROAT: No erythema or exudates. NECK: No masses, no JVD, no thyroid enlargement, no adenopathy. CHEST: No chest wall deformity. Symmetrical expansion. LUNGS: Equal air entry bilaterally, with diffuse wheezes CVS: Regular rate and rhythm, normal S1 and S2, no gallops, no murmurs, no rubs ABDOMEN: Soft, nontender. No hepatosplenomegaly, normal bowel sounds, no guarding or rigidity. EXTREMITIES: No clubbing, no edema, no cyanosis, 2+ pulses and upper and lower extremities. MUSCULOSKELETAL: Muscle strength and tone normal. SPINE: No scoliosis or deformity SKIN: No rashes CENTRAL NERVOUS SYSTEM: Alert and oriented -3. No focal deficits, tone is normal in all 4 extremities. PSYCHIATRIC: Alert and oriented -3. Appropriate affect. Intact judgment and insight. - Labs CBC & Chem 7: 07/17/21 06:29 07/18/21 06:48 Labs: Abnormal Lab Results - Last 24 Hours (Table) 07/17/21 07/17/21 07/17/21 Range/Units 06:29 17:09 20:55 PT (9.0-12.0) sec INR (<1.2) ABG pH (7.35-7.45) ABG HCO3 (21-25) mmol/L ABG Total CO2 (19-24) mmol/L ABG O2 Saturation (94-97) % Sodium 135 L (137-145) mmol/L BUN 33 H (9-20) mg/dL BUN/Creatinine Ratio (12.00-20.00) Ratio Glucose 120 H (74-99) mg/dL POC Glucose (mg/dL) 185 H 155 H (75-99) mg/dL 07/18/21 07/18/21 07/18/21 Range/Units 06:48 06:48 07:20 PT 13.3 H (9.0-12.0) sec INR 1.3 H (<1.2) ABG pH (7.35-7.45) ABG HCO3 (21-25) mmol/L ABG Total CO2 (19-24) mmol/L ABG O2 Saturation (94-97) % Sodium (137-145) mmol/L BUN 38.0 H (9-20) mg/dL BUN/Creatinine Ratio 47.50 H (12.00-20.00) Ratio Glucose 156 H (74-99) mg/dL POC Glucose (mg/dL) 146 H (75-99) mg/dL 07/18/21 07/18/21 Range/Units 10:48 11:44 PT (9.0-12.0) sec INR (<1.2) ABG pH 7.48 H (7.35-7.45) ABG HCO3 31 H (21-25) mmol/L ABG Total CO2 32 H (19-24) mmol/L ABG O2 Saturation 98.8 H (94-97) % Sodium (137-145) mmol/L BUN (9-20) mg/dL BUN/Creatinine Ratio (12.00-20.00) Ratio Glucose (74-99) mg/dL POC Glucose (mg/dL) 146 H (75-99) mg/dL Assessment and Plan Plan: Assessment #1. Acute hypoxic respiratory failure and acute exacerbation of COPD and suspected early pneumonia. Pro-calcitonin level was nonelevated, however today there is suspicion for acute aspiration and patient currently remains on antibi otics. COVID-19 PCR was negative #2. Mildly impaired left ventricular systolic function with an ejection fraction of 45-50% #3. Chronic A. fib on Coumadin #4. Recent history of acute cholecystitis status post robotic-assisted cholecystectomy in June 2020 #5. Chronic COPD with an FEV1 of 45% of predicted on home oxygen #6. Chronic back and neck pain, chest x-ray showing progressive compression deformity with severe loss of vertebral body in the midthoracic region #7. History of skin cancer with resection #8. Hypertension 9. Hyperlipidemia 10. Former smoker #11. History of bladder and kidney stones #12. 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 History of COVID-19 pneumonia back in August 2020, patient has since been vaccinated and boosted Plan: Chest x-ray has been reviewed and is more consistent with fluid overload We'll add Lasix 40 mg twice daily IV push Continue IV steroids, we will increase to 60 g every 6 hours Continue bronchodilators Continue cefepime Patient was placed on BiPAP in view of increased work of breathing with pressures of 12 and 5 and FiO2 of 60%, blood gases have been ordered and reviewed Continue with BiPAP support, may offer a break and patient may be placed on high flow oxygen intermittently We'll continue to follow his clinical course CODE STATUS is DO NOT RESUSCITATE Continue supportive treatment Follow-up chest x-ray tomorrow I performed a history & physical examination of the patient and discussed their management with my nurse practitioner, Domonique Charles. I reviewed the nurse practitioner's note and agree with the documented findings and plan of care. Lung sounds are positive for diffuse wheezes throughout the lung hankins. The findings and the impression was discussed with the patient. I attest to the documentation by the nurse practitioner. Time with Patient: Less than 30
--- NOTE | 2021-07-18 15:05 | FL ---
Modified barium swallow. HISTORY: Dysphagia. Modified barium swallow was performed with the department of speech pathology. The patient was prese nted with various consistencies of barium. There is no evidence for aspiration or penetration. Full report is to follow from the department of speech pathology. Impression: Normal study.
[2021-07-18 17:24] LABS: Glucose,Whole Blood 164 mg/dL (75-99)
[2021-07-18] MEDS: methylPREDNISolone SOD SUCCI 125 MG/2 ML VIAL IV SCH (17:41)
[2021-07-18] MEDS ORDERED: WARFARIN 3 MG TAB PO ONE (18:00)
[2021-07-18 21:26] LABS: Glucose,Whole Blood 189 mg/dL (75-99)
[2021-07-18] MEDS: CHOLECALCIFEROL 25 MCG (1000 IU) TABLET PO SCH (22:27)
[2021-07-18] MEDS: ATORVASTATIN 20 MG TAB PO SCH (22:27)
[2021-07-18] MEDS: TAMSULOSIN 0.4 MG CAP.ER.24H PO SCH (22:27)
[2021-07-19] MEDS: methylPREDNISolone SOD SUCCI 125 MG/2 ML VIAL IV SCH ×4 (00:30→17:32)
[2021-07-19] MEDS: CEFEPIME 2 GM in SODIUM CHLORIDE 0.9% 100 ML IVPB SCH ×3 (00:30→21:10)
[2021-07-19] MEDS: IPRATROPIUM-ALBUTEROL 3 ML NEB INHALATION SCH ×7 (02:30→23:02)
[2021-07-19] MEDS: PANTOPRAZOLE 40 MG TABLET PO SCH (05:37)
[2021-07-19 07:15] LABS: Glucose,Whole Blood 147 mg/dL (75-99)
[2021-07-19] MEDS: BUDESONIDE 0.5 MG/2 ML NEBU INHALATION SCH ×2 (07:17→19:24)
--- NOTE | 2021-07-19 08:28 | XR ---
EXAMINATION TYPE: XR chest 1V portable DATE OF EXAM: 07/19/2021 COMPARISON: Chest x-ray 07/18/2021, CT 06/25/2021 HISTORY: Shortness of breath TECHNIQUE: Single frontal view of the chest is obtained. FINDINGS: There is apical pleural thickening, patchy density present in the right upper lobe similar to prior. Cardiac mediastinal silhouette is stable, suspect a prominent epicardial fat pad. Bone min eralization is reduced. Interstitium is mildly prominent. The osseous structures are intact, postop c hange noted to the lower cervical spine. IMPRESSION: Findings are similar to prior exam. There is underlying emphysema, apical scarring.
[2021-07-19] MEDS: AZITHROMYCIN 500 MG TAB PO SCH (08:34)
[2021-07-19] MEDS: FOLIC ACID 1 MG TAB PO SCH (08:34)
[2021-07-19] MEDS: METOPROLOL TARTRATE 25 MG TAB PO SCH ×2 (08:34→21:09)
[2021-07-19] MEDS: INSULIN ASPART (NovoLOG) 100 UNIT/ML VIAL SQ SCH ×4 (08:34→21:11)
[2021-07-19] MEDS: DILTIAZEM CD 120 MG CAP.ER.24H PO SCH (08:34)
[2021-07-19] MEDS: ASPIRIN 81 MG PO SCH (08:34)
[2021-07-19] MEDS: FUROSEMIDE 10 MG/ML 4 ML VIAL IV SCH ×2 (08:55→21:11)
[2021-07-19] MEDS ORDERED: QUEtiapine 25 MG TAB PO STA (10:13)
[2021-07-19] MEDS ORDERED: ENOXAPARIN 40 MG/0.4 ML SYRINGE SQ SCH (10:14)
[2021-07-19 10:27] LABS: Basophils # (A) 0.04 X 10*3/uL (0.00-0.10); Basophils % (A) 0.2 %; Eosinophils # (A) 0 X 10*3/uL (0.04-0.35); Eosinophils % (A) 0 %; HCT 43.4 % (39.6-50.0); HGB 13.7 g/dL (13.0-17.0); Immature Grans, Automated 1.9 %; Lymphocytes % (A) 5.5 %; MCH 28.4 pg (27.0-32.0); MCHC 31.6 g/dL (32.0-37.0); Mean Platelet Volume 11.2 fL (9.5-12.2); Monocytes % (A) 2.8 %; NRBC Per 100 WBC 0 /100 WBCS (0.0-0.0); Neutrophils # (A) 19.43 X 10*3/uL (1.80-7.70); Neutrophils % (A) 89.6 %; Platelet Count 229 X 10*3/uL (140-440); RBC 4.82 X 10*6/uL (4.40-5.60); RDW 14.4 % (11.5-14.5); WBC 21.68 X 10*3/uL (4.50-10.00)
[2021-07-19 10:33] LABS: African American GFR (CKD) 75.1 (60.0-200.0); Anion Gap 14.1 mmol/L (10.00-18.00); BUN/Creat Ratio 43.74 Ratio (12.00-20.00); Blood Urea Nitrogen 46.8 mg/dL (9.0-27.0); Calcium 9.4 mg/dL (8.7-10.3); Carbon Dioxide 29.3 mmol/L (20.0-27.5); Non-African American GFR(CKD) 64.8 (60.0-200.0); Potassium 4.4 mmol/L (3.5-5.5)
--- NOTE | 2021-07-19 10:58 | P.PN ---
Subjective Progress Note Date: 07/19/21 This is a very pleasant 80-year-old male patient with multiple medical problems including COPD with baseline FEV1 of 45% of predicted, chronic A. fib with history of ablation, and patient reverted back to A. fib, on Coumadin for anticoagulation, hypertension, hyperlipidemia, former smoker, chronic back pain and chronic neck pain. He has been currently residing at [facility] on the [place] and they brought him here by EMS yesterday feeling he was short of breath and had oxygen saturations in the low 80s. He is seen today in consultation emergency department. He's currently sitting up in a stretcher. Awake and alert. He has a active cough of greenish brown sputum. He's shortness of breath with minimal conversation. Currently maintaining O2 saturations in the mid 90s on 4 L/m per nasal cannula. Afebrile. Hemodynamically stable. Chest x-ray reveals evidence of COPD. Mild interstitial infiltrates in the right upper lobe. Improving interstitial infiltrates on our lungs compared to 06/25/2021. White count 11.1. Hemoglobin 13.5. INR 3.3. Sodium 137. Potassium 4.5. Creatinine 0.89. Taniya na virus by PCR negative. He's been initiated on ceftriaxone and azithromycin. DuoNeb inhalations, Pulmicort inhalations. The patient is seen today 07/13/2021 in follow-up on the regular medical floor. He is currently sitting up in a chair at the bedside. Awake and alert in no acute distress. Breathing a bit easier today compared to yesterday. He was admitted for acute hypoxemic respiratory failure with acute exacerbation of COPD and suspected early pneumonia. He is currently maintaining O2 saturations in the 90s on 4 L/m per nasal cannula. He is afebrile. Hemodynamically stable. Pro-calcitonin 0.05. No new labs today. He is continued on cefepime and azithromycin. He remains on DuoNeb inhalations, Pulmicort inhalations. The patient is seen today 07/14/2021 in follow-up on the regular medical floor. He is awake and alert in no acute distress. Sitting up in a chair at the bedside. Maintaining O2 saturations up to 100% on 3 L/m per nasal cannula. Follow up chest x-ray reveals mild patchy right upper lobe and right basilar infiltrate. Basilar left infiltrate. Pro-calcitonin was 0.05. Sputum culture is pending. White count 11.0. Hemoglobin 12.7. INR 2.0. Sodium 139. Potassium 3.9. Creatinine 0.89. Continued on DuoNeb inhalations, Pulmicort inhalations. Anticoagulated with warfarin. Antibiotics in the form of cefepime and azithromycin. Patient is seen today 07/15/2021 in follow-up on the regular medical floor. Awake and alert in no acute distress. Currently sitting up in bed. Doing about the same today as compared to yesterday. Maintaining O2 saturations in the 90s on 3 L/m per nasal cannula. Sputum culture pending. INR 1.4. He is continued on DuoNeb inhalations, Pulmicort inhalations, antibiotics in form of cefepime and azithromycin. Warfarin dosed by pharmacy. The patient is seen today 07/19/2021 in follow-up on the regular medical floor. He is currently sitting up in bed. Awake and alert in no acute distress. Speech therapy is working with the patient and helping him see her breakfast. modified barium swallow performed yesterday revealed no evidence for aspiration or penetration. today's chest x-ray continues to show apical pleural thickening, patchy density in the right upper lobe similar to previous. No significant changes. He is currently maintaining O2 saturations in the mid 90s on 4 L high flow nasal cannula. Afebrile. Hemodynamically stable. sputum culture revealed no growth. White count 21.6. Hemoglobin 13.7. Sodium 141. Potassium 4.4. BUN 46.8. Creatinine 1.1. Glucose 123. He is continued on DuoNeb inhalations, Pulmicort inhalations, IV Solu-Medrol. Antibiotics in the form of cefepime. Anticoagulated with warfarin. Objective - Vital Signs Vital signs: Vital Signs Temp 97.9 F 07/19/21 07:33 Pulse 104 H 07/19/21 10:36 Resp 18 07/19/21 07:33 BP 120/60 07/19/21 07:33 Pulse Ox 86 L 07/19/21 10:37 Intake & Output 07/18/21 07/19/21 07/19/21 18:59 06:59 18:59 Intake Total 200 Balance 200 Intake: Oral 200 Other: Voiding Method Urinal Urinal Bedside Commode Diaper Diaper Diaper Incontinent Incontinent Incontinent # Voids 4 - Exam GENERAL EXAM: Alert, pleasant 81-year-old gentleman, on 4 L nasal cannula, sitting up in bed, comfortable in no apparent distress. HEAD: Normocephalic. EYES: Normal reaction of pupils, equal size. NOSE: Clear with pink turbinates. THROAT: No erythema or exudates. NECK: No masses, no JVD. CHEST: No chest wall deformity. LUNGS: Equal air entry with bilateral scattered rhonchi, end expiratory wheeze, diminished CVS: S1 and S2 normal with no audible murmur, regular rhythm. ABDOMEN: No hepatosplenomegaly, normal bowel sounds, no guarding or rigidity. SPINE: No scoliosis or deformity SKIN: No rashes CENTRAL NERVOUS SYSTEM: No focal deficits, tone is normal in all 4 extremities. EXTREMITIES: There is no peripheral edema. No clubbing, no cyanosis. Peripheral pulses are intact. - Labs CBC & Chem 7: 07/19/21 06:42 07/19/21 06:42 Labs: Abnormal Lab Results - Last 24 Hours (Table) 07/18/21 07/18/21 07/18/21 Range/Units 06:48 10:48 11:44 WBC (4.50-10.00) X 10*3/uL MCHC (32.0-37.0) g/dL Immature Gran # (0.00-0.04) X 10*3/uL Neutrophils # (1.80-7.70) X 10*3/uL Eosinophils # (0.04-0.35) X 10*3/uL ABG pH 7.48 H (7.35-7.45) ABG HCO3 31 H (21-25) mmol/L ABG Total CO2 32 H (19-24) mmol/L ABG O2 Saturation 98.8 H (94-97) % Carbon Dioxide (20.0-27.5) mmol/L BUN 38.0 H (9.0-27.0) mg/dL BUN/Creatinine Ratio 47.50 H (12.00-20.00) Ratio Glucose 156 H (70-110) mg/dL POC Glucose (mg/dL) 146 H (75-99) mg/dL 07/18/21 07/18/21 07/19/21 Range/Units 17:21 21:02 06:42 WBC 21.68 H (4.50-10.00) X 10*3/uL MCHC 31.6 L (32.0-37.0) g/dL Immature Gran # 0.41 H (0.00-0.04) X 10*3/uL Neutrophils # 19.43 H (1.80-7.70) X 10*3/uL Eosinophils # 0 L (0.04-0.35) X 10*3/uL ABG pH (7.35-7.45) ABG HCO3 (21-25) mmol/L ABG Total CO2 (19-24) mmol/L ABG O2 Saturation (94-97) % Carbon Dioxide (20.0-27.5) mmol/L BUN (9.0-27.0) mg/dL BUN/Creatinine Ratio (12.00-20.00) Ratio Glucose (70-110) mg/dL POC Glucose (mg/dL) 164 H 189 H (75-99) mg/dL 07/19/21 07/19/21 Range/Units 06:42 07:13 WBC (4.50-10.00) X 10*3/uL MCHC (32.0-37.0) g/dL Immature Gran # (0.00-0.04) X 10*3/uL Neutrophils # (1.80-7.70) X 10*3/uL Eosinophils # (0.04-0.35) X 10*3/uL ABG pH (7.35-7.45) ABG HCO3 (21-25) mmol/L ABG Total CO2 (19-24) mmol/L ABG O2 Saturation (94-97) % Carbon Dioxide 29.3 H (20.0-27.5) mmol/L BUN 46.8 H (9.0-27.0) mg/dL BUN/Creatinine Ratio 43.74 H (12.00-20.00) Ratio Glucose 123 H (70-110) mg/dL POC Glucose (mg/dL) 147 H (75-99) mg/dL Assessment and Plan Assessment: 1 Acute hypoxemic respiratory failure and acute exacerbation of chronic obstructive pulmonary disease and suspected early pneumonia. Though pro calcitonin 0.05. Modified barium swallow from 07/18/2021 did not reveal any evidence of aspiration or penetration. Follow-up chest x-ray stable. 2 Mildly impaired left ventricular systolic function with ejection fraction 45- 50%. 3 Rule out possibility of urinary tract infection, patient is covered with Rocephin 4 Chronic A. 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 He has since been vaccinated and boosted. Plan: The patient was seen and evaluated Stable and on 4 L nasal cannula Continue cefepime and azithromycin Continue bronchodilators, IV Solu-Medrol Titrate the FiO2 as tolerated We will continue to follow I, the cosigning physician, performed a history & physical examination of the patient. Lungs sounds with bilateral end expiratory wheeze, bilateral rhonchi. Maintaining O2 saturations in the 90s on 4 L/m per nasal cannula. I discussed the assessment and plan of care with my nurse practitioner, Kia Driscoll. I attest to the above note as dictated by her.
[2021-07-19] MEDS ORDERED: FUROSEMIDE 10 MG/ML 4 ML VIAL IV STA (11:14)
[2021-07-19 11:39] LABS: Glucose,Whole Blood 167 mg/dL (75-99)
[2021-07-19 11:40] LABS: INR 1.36 (0.90-1.11); Prothrombin Time 15.1 sec (9.9-11.9)
--- NOTE | 2021-07-19 14:17 | P.PN ---
Subjective Progress Note Date: 07/19/21 This is a pleasant 81 years old male with past medical history of Atrial Fibrillation, on warfarin, COPD, GERD/Reflux, Hyperlipidemia, Hypertension, Pneumonia, BPH, COPD with an FEV1 of 45% of predicted, chronic back pain, chronic neck pain with radiculopathy and numbness and tingling involving the right upper extremity and the hand and the lower extremities, history of childhood left eye injury with limited vision involving the left eye.s/p cervical decompression/discectomy and fusion with bone graft, Patient presents because of dyspnea and expiratory wheezing Patient is poor historian. He is oriented to place only as he knows in the hospital but he thought it is 1919 [place] and he could not tell the name of the president. He could not remember all the details but he knew that he came because of dyspnea and some chest pain with coughing. Currently he does not have chest pain. Also he states he makes some phlegm but he wasn't sure. He states he does not use oxygen at home. He walks wheezing a walker. He denies any urinary symptoms. No diarrhea or vomiting. He denies smoking, alcohol or illicit drugs at home. Vitas looks stable and he is saturating 95% on 4 L oxygen via nasal cannula. And the presentation he was tachypneic around 28-30 breath per minutes, now is better at 20 breaths per minute labs showed mild leukocytosis with 11.1, INR is elevated 3.3, hemoglobin and platelets are stable and normal. Rest of BMP is unremarkable and troponin are negative with less than 0.012. ProBNP is 864. Coronavirus not detected EKG showing atrial fibrillation's with PVC and aberrant conduction complexes at a rate of 99 and QTC 449, no significant ST-T changes Chest x-ray: COPD, mild interstitial infiltrates in the right upper lobe. Improved interstitial infiltrates in the lower lungs In the emergency room patient was started on Zithromax and ceftriaxone as well as a steroids 07/13/2021 Patient evaluated today sitting up in the chair. He states breathing is improved from yesterday. Continues with green/brown sputum, collection cup at bedside. Otherwise no acute events overnight and no acute complaints today. 97% on 4L NC, wears oxygen as needed at [facility]. We can wean this oxygen down as tolerated. Procalcitonin level 0.05 which is not suggestive of bacterial infection. No labs from today. Continues on antibiotics, steroids. 07/14/2021 Patient elevated today sitting up in the chair he is requesting to go back to bed as he is tired. No acute events overnight. Sputum cultures all pending, patient still reports cough with greenish brown sputum. He is alert 2 unable to tell me the year but mostly he has had poor hearing hospital. White count today 11, INR 2, resumed Coumadin today, electrolytes are within normal limits. He is afebrile, heart rate 65, blood pressure 114/75, 100% on 3 L nasal cannula continue to wean this as tolerated. Repeat chest x-ray today shows mild patchy right upper lobe and right basilar infiltrate, slight worsening and left basilar infiltrate. Continues IV azithromycin and IV cefepime. He is being followed closely by pulmonary services. Urinalysis has been ordered and not collected yet. 07/15/2021 Patient evaluated today resting in bed. He states that he does not favor one side and he is tired. No acute events overnight. Sputum cultures are pending reports cough with less sputum production. INR today 1.4, he is on Coumadin dosed by pharmacy which was resumed yesterday. He is being followed closely by pulmonary services. Continues on antibiotics in the form of IV cefepime and was transitioned to by mouth azithromycin today. Patient afebrile, heart rate 61, blood pressure 140/85 and he is 97% on 3 L nasal cannula which can be continued to wean as tolerated. Urinalysis yesterday shows clear urine with trace protein, trace ketones, moderate blood no evidence for infection. 07/16/2021 Patient evaluated today resting in bed, he does appear more fatigued than yesterday. Chest x-ray shows improvement today however he still continues in 2- 3 L of nasal cannula. There is wheezing and coarse rhonchi noted on lung sounds. He is now cough is minimal to none sputum production which is improved. Sputum culture unfortunately was not a deep sputum culture and will not be reliable. Continues on IV cefepime and PO azithromycin. INR today 1.26 patient is on coumadin dosed by pharmacy. He is being followed closely by pulmonary services. Vital signs today show afebrile, heart rate 68, blood pressure 117/65 and he is 97% on 3 L cannula. 07/17/2021 Patient evaluated today sitting up in bed. He is alert x2 able to tell me his name, , where he is, not the year. He seems more dyspneic today than yest vikasay. Sputum production has decreased but his weezing is worse with bilateral basilar crackles present and a congested cough. We will check a BNP and repeat procalcitonin. Patient continues on IV cefepime, added IV solumedrol today. He is on PO lasix daily, will given a small dose of IV lasix today. He has not been getting IV fluids there is no peripheral edema. He is on updrafts and pulmicort. He is being followed closely by pulmonary team. BNP is 652, INR 1.22 on coumadin, WBC today 14.11. We will also reswab for COVID. Afebrile, heart rate 76, blood pressure 120/74, 93% on 5L NC. Also repeat chest xray today. 07/18/2021 Patient evaluated in bed, he is alert 3. Still continues to be more dyspneic than the day prior, he is coughing now is congested per RN he was eating breakfast and patient felt his food went down wrong. He is on a 6 L high flow nasal cannula with oxygen saturation of 91%. Patient was recommended for BiPAP with 60% FiO2 however he is refusing at this time. He continues on HF cannula. We will attempt a bed side swallow and speech evaluation. Chest xray today shows suspect underlying COPD, interstitial changes especially in the lower lungs show slight improvement. Nodularity redemonstrated. Refer to recommendations on PET/CT scan 08/13/[address] follow up surveillance. Labs today show sodium 136, potassium 4.7, BUN 30, creatinine 0.8, blood glucose in the 140s. INR today 1.3. ABGs were taken which shows a pH of 7.48, pCO2 41, pO2 99, HCO3 31, total CO2 32 and oxygen saturation 98.8. Continue on updrafts, cefepime, IV Solu-Medrol, Pulmicort. He is also on lasix IV 40 mg Q12. 07/19/2021 Patient is evaluated today sitting up in bed. He is alert x2-3. Today INR 1.33, we did start patient on lovenox bridge he continues on coumadin daily for history of atrial fibrillation. Patient in respiratory distress today seems more anxiety with hyperventilation. Although patient did complain of some chest pressure was unable to tell me a quantity, he did point to midsternal. EKG requested, he appears to be in atrial fibrillation with normal ventricular rate on telemetry. He refuses to wear telemetry for more than a short period of time, he rips it off. D-dimer elevated at 1.20, CT angiography of chest was ordered. Currently pending. Speech evaluation yesterday patient is on a dysphagia 2 ground diet with nectar thick liquids with aspiration precautions, no straws. Modified barium swallow shows no evidence for aspiration or penetration, normal study. Chest x-ray today shows findings similar to prior exam there is underlyi ng emphysema, apical scarring. He is being follow closely pulmonary services, on updrafts, Pulmicort, IV cefepime, IV Lasix every 12, IV Solu-Medrol. Most recent vitals show afebrile, heart rate 70, respirations 21, blood pressure 113/68, 94% on a 10 L high flow cannula. ROS Constitutional: Denied any fatigue denied any fever. Cardio vascular: Reports midsternal chest pressure, denies palpitations Gastrointestinal denied any nausea vomiting, denies diarrhea Pulmonary: dyspnea with exertion, Congested cough Neurologic denied any new focal deficits All inpatient medications were reviewed and appropriate changes in these medications as dictated in the interval history and assessment and plan. PHYSICAL EXAMINATION: GENERAL: The patient is alert and oriented x2-3, mild respiratory distress, patient anxious, calling out at times. Well developed, well nourished. HEENT: Pupils are round and equally reacting to light. EOMI. No scleral icterus. No conjunctival pallor. Normocephalic, atraumatic. No pharyngeal erythema. No thyromegaly. CARDIOVASCULAR: S1 and S2 present. No murmurs, rubs, or gallops. PULMONARY: Scattered inspiratory and expiratory wheeze with bibasilar crackles, congested bronchospastic cough noted. ABDOMEN: Soft, nontender, nondistended, normoactive bowel sounds. No palpable organomegaly. MUSCULOSKELETAL: No joint swelling or deformity. EXTREMITIES: No cyanosis, clubbing, or pedal edema. NEUROLOGICAL: Gross neurological examination did not reveal any focal deficits. SKIN: No rashes. Assessment and Plan Assessment: Acute COPD exacerbation, noncompliant with home oxygen, now on 6-10L NC HF, with BiPAP 60% fio2 on standby, on IV cefepime, PO azithro IV solumedrol Possible early right upper lobe community acquired pneumonia, procalcitonin level 0.05, repeat procalcitonin negative as well, continues on IV cefepime and PO azithromycin Possible aspiration pneumonia, MMS negative for aspiration or penetration, on 10L HF Cannula Elevated D-Dimer 1.2 in a COVID negative patient, CTA ordered Leukocytosis, secondary to above, increasing up to 14.11 Coagulopathy secondary to Coumadin, resolved, coumadin resumed Hematuria possibly related to coagulopathy, continue to monitor Chronic atrial fibrillation on Coumadin History of chronic systolic congestive heart failure, most recent echo in June of 2020 shows low normal EF of 50-55%, mild exacerbation now on IV lasix Enlarged right hilar lymph nodes found on CT scan in Jun, recommended at that time for repeat CT in 3 months Memory impairment 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 History of GERD Hypertension Hyperlipidemia History of BPH History of chronic neck pain with radiculopathy History of tobacco use Plan: Chest Xray today D-Dimer elevated, CTA ordered Oxygen support, titrate as needed Continue with bronchodilator, IV steroids, IV lasix Pulmonary consult Continue with ceftriaxone and Zithromax Aspiration precautions Repeat labs, PT/INR in morning DVT prophylaxis: On Coumadin, resumed, subtherapeutic lovenox bridge GI Prophylaxis: Ppi PT/OT: Return to [facility] with 01/01 care Prognosis is guarded Objective - Vital Signs Vital signs: Vital Signs Temp 97.3 F L 07/19/21 11:56 Pulse 70 07/19/21 11:56 Resp 21 07/19/21 12:52 BP 113/68 07/19/21 11:56 Pulse Ox 94 L 07/19/21 11:56 Intake & Output 07/18/21 07/19/21 07/19/21 18:59 06:59 18:59 Intake Total 200 Balance 200 Intake: Oral 200 Other: Voiding Method Urinal Urinal Bedside Commode Diaper Diaper Diaper Incontinent Incontinent # Voids 4 - Labs CBC & Chem 7: 07/19/21 06:42 07/19/21 06:42 Labs: Abnormal Lab Results - Last 24 Hours (Table) 07/18/21 07/18/21 07/19/21 Range/Units 17:21 21:02 06:42 WBC (4.50-10.00) X 10*3/uL MCHC (32.0-37.0) g/dL Immature Gran # (0.00-0.04) X 10*3/uL Neutrophils # (1.80-7.70) X 10*3/uL Eosinophils # (0.04-0.35) X 10*3/uL PT 15.1 H (9.9-11.9) sec INR 1.36 H (0.90-1.11) D-Dimer (<0.60) mg/L FEU Carbon Dioxide (20.0-27.5) mmol/L BUN (9.0-27.0) mg/dL BUN/Creatinine Ratio (12.00-20.00) Ratio Glucose (70-110) mg/dL POC Glucose (mg/dL) 164 H 189 H (75-99) mg/dL 07/19/21 07/19/21 07/19/21 Range/Units 06:42 06:42 07:13 WBC 21.68 H (4.50-10.00) X 10*3/uL MCHC 31.6 L (32.0-37.0) g/dL Immature Gran # 0.41 H (0.00-0.04) X 10*3/uL Neutrophils # 19.43 H (1.80-7.70) X 10*3/uL Eosinophils # 0 L (0.04-0.35) X 10*3/uL PT (9.9-11.9) sec INR (0.90-1.11) D-Dimer (<0.60) mg/L FEU Carbon Dioxide 29.3 H (20.0-27.5) mmol/L BUN 46.8 H (9.0-27.0) mg/dL BUN/Creatinine Ratio 43.74 H (12.00-20.00) Ratio Glucose 123 H (70-110) mg/dL POC Glucose (mg/dL) 147 H (75-99) mg/dL 07/19/21 07/19/21 Range/Units 10:35 11:38 WBC (4.50-10.00) X 10*3/uL MCHC (32.0-37.0) g/dL Immature Gran # (0.00-0.04) X 10*3/uL Neutrophils # (1.80-7.70) X 10*3/uL Eosinophils # (0.04-0.35) X 10*3/uL PT (9.9-11.9) sec INR (0.90-1.11) D-Dimer 1.20 H (<0.60) mg/L FEU Carbon Dioxide (20.0-27.5) mmol/L BUN (9.0-27.0) mg/dL BUN/Creatinine Ratio (12.00-20.00) Ratio Glucose (70-110) mg/dL POC Glucose (mg/dL) 167 H (75-99) mg/dL
--- NOTE | 2021-07-19 15:19 | CT ---
EXAMINATION TYPE: CT angio chest DATE OF EXAM: 07/19/2021 2:56 PM COMPARISON: 06/27/2020 HISTORY: SOB CT DLP: 514.3 mGycm Automated exposure control for dose reduction was used. CONTRAST: CTA scan of the thorax is performed with IV Contrast, patient injected with 80cc mL of Isovue 370, pu lmonary embolism protocol. . FINDINGS: LUNGS: Biapical pleural-based thickening. Underlying changes of COPD. Subsegmental consolidation both lung bases most typical of atelectasis. Diffuse emphysematous changes noted. There appears to be flu id-filled or mucous filled bronchi extending into the lower lobes bilaterally. MEDIASTINUM: No central pulmonary embolism. Atherosclerotic change aorta and the coronary arteries. H eart size stable. OTHER: Hypertrophic and degenerative changes spine. There is a severe compression fracture complete compression of the midthoracic spine and additional compression deformity in the mid to lower thoraci c findings. Both appear progressed relative to prior exam. Likely is a degree of retropulsion. Chroni c appearing deformities are noted of the rib cage IMPRESSION: 1. COPD with no diagnostic evidence of pulmonary embolism as visualized. There is some limitation wit h regard to the distal branches as noted above correlate clinically. 2. There appear to be mucous or fluid-filled bronchi extending from the hilum in the lower lobes bila terally correlate clinically. 3. COPD correlate for chronic interstitial pulmonary fibrosis. 4. There are is a severe complete compression fracture in the midthoracic spine which is new relative to the prior exam with retropulsion correlate clinically. Additional compression fracture appears pr ogressed in the lower thoracic spine. No pathologic fractures not excluded.
[2021-07-19 17:15] LABS: Glucose,Whole Blood 160 mg/dL (75-99)
[2021-07-19] MEDS ORDERED: WARFARIN 7.5 MG TAB PO ONE (18:00)
[2021-07-19 20:12] LABS: Glucose,Whole Blood 126 mg/dL (75-99)
[2021-07-19] MEDS: ATORVASTATIN 20 MG TAB PO SCH (21:09)
[2021-07-19] MEDS: CHOLECALCIFEROL 25 MCG (1000 IU) TABLET PO SCH (21:09)
[2021-07-19] MEDS: TAMSULOSIN 0.4 MG CAP.ER.24H PO SCH (21:09)
[2021-07-20] MEDS: methylPREDNISolone SOD SUCCI 125 MG/2 ML VIAL IV SCH ×4 (00:38→17:45)
[2021-07-20] MEDS: IPRATROPIUM-ALBUTEROL 3 ML NEB INHALATION SCH ×6 (03:14→23:52)
[2021-07-20] MEDS: PANTOPRAZOLE 40 MG TABLET PO SCH (05:11)
[2021-07-20 07:01] LABS: Glucose,Whole Blood 162 mg/dL (75-99)
[2021-07-20 07:03] LABS: Prothrombin Time 20.1 sec (9.0-12.0)
[2021-07-20] MEDS: FOLIC ACID 1 MG TAB PO SCH (08:15)
[2021-07-20] MEDS: ASPIRIN 81 MG PO SCH (08:15)
[2021-07-20] MEDS: AZITHROMYCIN 500 MG TAB PO SCH (08:15)
[2021-07-20] MEDS: INSULIN ASPART (NovoLOG) 100 UNIT/ML VIAL SQ SCH ×4 (08:15→21:01)
[2021-07-20] MEDS: DILTIAZEM CD 120 MG CAP.ER.24H PO SCH (08:15)
[2021-07-20] MEDS: METOPROLOL TARTRATE 25 MG TAB PO SCH ×2 (08:15→21:01)
[2021-07-20] MEDS: FUROSEMIDE 10 MG/ML 4 ML VIAL IV SCH ×2 (10:16→21:01)
[2021-07-20] MEDS: CEFEPIME 2 GM in SODIUM CHLORIDE 0.9% 100 ML IVPB SCH ×2 (10:17→21:00)
--- NOTE | 2021-07-20 10:51 | P.PN ---
Subjective Progress Note Date: 07/20/21 This is a pleasant 81 years old male with past medical history of Atrial Fibrillation, on warfarin, COPD, GERD/Reflux, Hyperlipidemia, Hypertension, Pneumonia, BPH, COPD with an FEV1 of 45% of predicted, chronic back pain, chronic neck pain with radiculopathy and numbness and tingling involving the right upper extremity and the hand and the lower extremities, history of childhood left eye injury with limited vision involving the left eye.s/p cervical decompression/discectomy and fusion with bone graft, Patient presents because of dyspnea and expiratory wheezing Patient is poor historian. He is oriented to place only as he knows in the hospital but he thought it is 1919 oh and he could not tell the name of the president. He could not remember all the details but he knew that he came because of dyspnea and some chest pain with coughing. Currently he does not have chest pain. Also he states he makes some phlegm but he wasn't sure. He states he does not use oxygen at home. He walks wheezing a walker. He denies any urinary symptoms. No diarrhea or vomiting. He denies smoking, alcohol or illicit drugs at home. Vitas looks stable and he is saturating 95% on 4 L oxygen via nasal cannula. And the presentation he was tachypneic around 28-30 breath per minutes, now is better at 20 breaths per minute labs showed mild leukocytosis with 11.1, INR is elevated 3.3, hemoglobin and platelets are stable and normal. Rest of BMP is unremarkable and troponin are negative with less than 0.012. ProBNP is 864. Coronavirus not detected EKG showing atrial fibrillation's with PVC and aberrant conduction complexes at a rate of 99 and QTC 449, no significant ST-T changes Chest x-ray: COPD, mild interstitial infiltrates in the right upper lobe. Improved interstitial infiltrates in the lower lungs In the emergency room patient was started on Zithromax and ceftriaxone as well as a steroids 07/13/2021 Patient evaluated today sitting up in the chair. He states breathing is improved from yesterday. Continues with green/brown sputum, collection cup at bedside. Otherwise no acute events overnight and no acute complaints today. 97% on 4L NC, wears oxygen as needed at [facility]. We can wean this oxygen down as tolerated. Procalcitonin level 0.05 which is not suggestive of bacterial infection. No labs from today. Continues on antibiotics, steroids. 07/14/2021 Patient elevated today sitting up in the chair he is requesting to go back to bed as he is tired. No acute events overnight. Sputum cultures all pending, patient still reports cough with greenish brown sputum. He is alert 2 unable to tell me the year but mostly he has had poor hearing hospital. White count today 11, INR 2, resumed Coumadin today, electrolytes are within normal limits. He is afebrile, heart rate 65, blood pressure 114/75, 100% on 3 L nasal cannula continue to wean this as tolerated. Repeat chest x-ray today shows mild patchy right upper lobe and right basilar infiltrate, slight worsening and left basilar infiltrate. Continues IV azithromycin and IV cefepime. He is being followed closely by pulmonary services. Urinalysis has been ordered and not collected yet. 07/15/2021 Patient evaluated today resting in bed. He states that he does not favor one side and he is tired. No acute events overnight. Sputum cultures are pending reports cough with less sputum production. INR today 1.4, he is on Coumadin dosed by pharmacy which was resumed yesterday. He is being followed closely by pulmonary services. Continues on antibiotics in the form of IV cefepime and was transitioned to by mouth azithromycin today. Patient afebrile, heart rate 61, blood pressure 140/85 and he is 97% on 3 L nasal cannula which can be continued to wean as tolerated. Urinalysis yesterday shows clear urine with trace protein, trace ketones, moderate blood no evidence for infection. 07/16/2021 Patient evaluated today resting in bed, he does appear more fatigued than yesterday. Chest x-ray shows improvement today however he still continues in 2- 3 L of nasal cannula. There is wheezing and coarse rhonchi noted on lung sounds. He is now cough is minimal to none sputum production which is improved. Sputum culture unfortunately was not a deep sputum culture and will not be reliable. Continues on IV cefepime and PO azithromycin. INR today 1.26 patient is on coumadin dosed by pharmacy. He is being followed closely by pulmonary services. Vital signs today show afebrile, heart rate 68, blood pressure 117/65 and he is 97% on 3 L cannula. 07/17/2021 Patient evaluated today sitting up in bed. He is alert x2 able to tell me his name, , where he is, not the year. He seems more dyspneic today than yest vikasay. Sputum production has decreased but his weezing is worse with bilateral basilar crackles present and a congested cough. We will check a BNP and repeat procalcitonin. Patient continues on IV cefepime, added IV solumedrol today. He is on PO lasix daily, will given a small dose of IV lasix today. He has not been getting IV fluids there is no peripheral edema. He is on updrafts and pulmicort. He is being followed closely by pulmonary team. BNP is 652, INR 1.22 on coumadin, WBC today 14.11. We will also reswab for COVID. Afebrile, heart rate 76, blood pressure 120/74, 93% on 5L NC. Also repeat chest xray today. 07/18/2021 Patient evaluated in bed, he is alert 3. Still continues to be more dyspneic than the day prior, he is coughing now is congested per RN he was eating breakfast and patient felt his food went down wrong. He is on a 6 L high flow nasal cannula with oxygen saturation of 91%. Patient was recommended for BiPAP with 60% FiO2 however he is refusing at this time. He continues on HF cannula. We will attempt a bed side swallow and speech evaluation. Chest xray today shows suspect underlying COPD, interstitial changes especially in the lower lungs show slight improvement. Nodularity redemonstrated. Refer to recommendations on PET/CT scan 08/13/[address] follow up surveillance. Labs today show sodium 136, potassium 4.7, BUN 30, creatinine 0.8, blood glucose in the 140s. INR today 1.3. ABGs were taken which shows a pH of 7.48, pCO2 41, pO2 99, HCO3 31, total CO2 32 and oxygen saturation 98.8. Continue on updrafts, cefepime, IV Solu-Medrol, Pulmicort. He is also on lasix IV 40 mg Q12. 07/19/2021 Patient is evaluated today sitting up in bed. He is alert x2-3. Today INR 1.33, we did start patient on lovenox bridge he continues on coumadin daily for history of atrial fibrillation. Patient in respiratory distress today seems more anxiety with hyperventilation. Although patient did complain of some chest pressure was unable to tell me a quantity, he did point to midsternal. EKG requested, he appears to be in atrial fibrillation with normal ventricular rate on telemetry. He refuses to wear telemetry for more than a short period of time, he rips it off. D-dimer elevated at 1.20, CT angiography of chest was ordered. Currently pending. Speech evaluation yesterday patient is on a dysphagia 2 ground diet with nectar thick liquids with aspiration precautions, no straws. Modified barium swallow shows no evidence for aspiration or penetration, normal study. Chest x-ray today shows findings similar to prior exam there is underlyi ng emphysema, apical scarring. He is being follow closely pulmonary services, on updrafts, Pulmicort, IV cefepime, IV Lasix every 12, IV Solu-Medrol. Most recent vitals show afebrile, heart rate 70, respirations 21, blood pressure 113/68, 94% on a 10 L high flow cannula. 07/20/2021 Patient evaluated today resting bed. His breathing is much improved as compared to yesterday however he is on a 15 L high flow cannula with oxygen saturation of 97%. Per RN patient had a rough night with his oxygenation. Blood pressure 125/79. Patient alert oriented, he denies any pain. On Coumadin, Lovenox bridge INR today 2.0. Yesterday 1.2, CT angiography shows no evidence for acute pulmonary embolism however there is hypertrophic and degenerative changes of the spine. There is a severe complete compression fracture in the mid thoracic spine which is new relative to the prior exam with retropulsion correlate clinically there is also an additional compression fracture which appears progressed in the lower thoracic spine. No pathological fractures are not excluded. COPD correlate for chronic interstitial pulmonary fibrosis. There appeared to be mucus or fluid-filled bronchi extending from the hilum in the lower lobes bilaterally correlate. We consult orthopedics to evaluate the CT angiography results related to the spinal compression fracture. Pulmonary is on the case, patient continues on IV Lasix, IV antibiotics, IV Solu-Medrol. Discussed in extent with patient's daughter today regarding hospice. She'll come in to see the patient and we will set up an informational hospice meeting. ROS Constitutional: Denied any fatigue denied any fever. Cardio vascular: Denies chest pain, palpitations Gastrointestinal denied any nausea vomiting, denies diarrhea Pulmonary: dyspnea with exertion, Congested cough Neurologic denied any new focal deficits All inpatient medications were reviewed and appropriate changes in these medications as dictated in the interval history and assessment and plan. PHYSICAL EXAMINATION: GENERAL: The patient is alert and oriented x2-3, mild respiratory distress, patient anxious, calling out at times. Well developed, well nourished. HEENT: Pupils are round and equally reacting to light. EOMI. No scleral icterus. No conjunctival pallor. Normocephalic, atraumatic. No pharyngeal erythema. No thyromegaly. CARDIOVASCULAR: S1 and S2 present. No murmurs, rubs, or gallops. PULMONARY: Scattered inspiratory and expiratory wheeze with bibasilar crackles, congested bronchospastic cough noted. ABDOMEN: Soft, nontender, nondistended, normoactive bowel sounds. No palpable organomegaly. MUSCULOSKELETAL: No joint swelling or deformity. EXTREMITIES: No cyanosis, clubbing, or pedal edema. NEUROLOGICAL: Gross neurological examination did not reveal any focal deficits. SKIN: No rashes. Assessment and Plan Assessment: Acute COPD exacerbation, noncompliant with home oxygen, now on 15L NC HF, with BiPAP 60% fio2 on standby, on IV cefepime, PO azithro IV solumedrol Possible early right upper lobe community acquired pneumonia, procalcitonin level 0.05, repeat procalcitonin negative as well, continues on IV cefepime and PO azithromycin Possible aspiration pneumonia, MBS negative for aspiration or penetration, on 15L HF Cannula Elevated D-Dimer 1.2 in a COVID negative patient, CTA negative for acute PE Leukocytosis, secondary to above, yesterday , no labs available from today. Coagulopathy secondary to Coumadin, resolved, INR today 2.0, on lovenox bridge, coumadin Severe complete compression fracture in the mid thoracic spine with retropulsion which is new, as well as additional compression fracture appears progressed in the low thoracic spine. Orthopedics consult. 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 Consulted orthopedics for input. Discussed case with linh Delgado today, she will come in to see patient. Discussed hospice recommendations regarding overall prognosis and clinical status. Follow up later today with daughter. Objective - Vital Signs Vital signs: Vital Signs Temp 96.7 F L 07/20/21 07:53 Pulse 100 07/20/21 09:07 Resp 15 07/20/21 08:35 BP 125/79 07/20/21 07:53 Pulse Ox 97 07/20/21 07:53 Intake & Output 07/19/21 07/20/21 07/20/21 18:59 06:59 18:59 Intake Total 100 Balance 100 Intake: Intake, IV Titration 100 Amount Cefepime 2 gm In Sodium 100 Chloride 0.9% 100 ml @ 25 mls/hr IVPB Q12HR [facility] Rx #:[id number] Other: Voiding Method Bedside Commode Bedside Commode Bedside Commode Diaper Diaper Diaper # Voids 5 1 # Bowel Movements 1 - Labs CBC & Chem 7: 07/19/21 06:42 07/19/21 06:42 Labs: Abnormal Lab Results - Last 24 Hours (Table) 07/19/21 07/19/21 07/19/21 Range/Units 06:42 10:35 11:38 PT 15.1 H (9.9-11.9) sec INR 1.36 H (0.90-1.11) D-Dimer 1.20 H (<0.60) mg/L FEU POC Glucose (mg/dL) 167 H (75-99) mg/dL 07/19/21 07/19/21 07/20/21 Range/Units 17:14 20:10 06:34 PT 20.1 H (9.9-11.9) sec INR 2.0 H (0.90-1.11) D-Dimer (<0.60) mg/L FEU POC Glucose (mg/dL) 160 H 126 H (75-99) mg/dL 07/20/21 Range/Units 07:00 PT (9.9-11.9) sec INR (0.90-1.11) D-Dimer (<0.60) mg/L FEU POC Glucose (mg/dL) 162 H (75-99) mg/dL Assessment and Plan Time with Patient: Greater than 30
--- NOTE | 2021-07-20 11:31 | P.PN ---
Subjective Progress Note Date: 07/20/21 This is a very pleasant 80-year-old male patient with multiple medical problems including COPD with baseline FEV1 of 45% of predicted, chronic A. fib with history of ablation, and patient reverted back to A. fib, on Coumadin for anticoagulation, hypertension, hyperlipidemia, former smoker, chronic back pain and chronic neck pain. He has been currently residing at [facility] [place] and they brought him here by EMS yesterday feeling he was short of breath and had oxygen saturations in the low 80s. He is seen today in consultation emergency department. He's currently sitting up in a stretcher. Awake and alert. He has a active cough of greenish brown sputum. He's shortness of breath with minimal conversation. Currently maintaining O2 saturations in the mid 90s on 4 L/m per nasal cannula. Afebrile. Hemodynamically stable. Chest x-ray reveals evidence of COPD. Mild interstitial infiltrates in the right upper lobe. Improving interstitial infiltrates on our lungs compared to 06/25/2021. White count 11.1. Hemoglobin 13.5. INR 3.3. Sodium 137. Potassium 4.5. Creatinine 0.89. Taniya na virus by PCR negative. He's been initiated on ceftriaxone and azithromycin. DuoNeb inhalations, Pulmicort inhalations. The patient is seen today 07/13/2021 in follow-up on the regular medical floor. He is currently sitting up in a chair at the bedside. Awake and alert in no acute distress. Breathing a bit easier today compared to yesterday. He was admitted for acute hypoxemic respiratory failure with acute exacerbation of COPD and suspected early pneumonia. He is currently maintaining O2 saturations in the 90s on 4 L/m per nasal cannula. He is afebrile. Hemodynamically stable. Pro-calcitonin 0.05. No new labs today. He is continued on cefepime and azithromycin. He remains on DuoNeb inhalations, Pulmicort inhalations. The patient is seen today 07/14/2021 in follow-up on the regular medical floor. He is awake and alert in no acute distress. Sitting up in a chair at the bedside. Maintaining O2 saturations up to 100% on 3 L/m per nasal cannula. Follow up chest x-ray reveals mild patchy right upper lobe and right basilar infiltrate. Basilar left infiltrate. Pro-calcitonin was 0.05. Sputum culture is pending. White count 11.0. Hemoglobin 12.7. INR 2.0. Sodium 139. Potassium 3.9. Creatinine 0.89. Continued on DuoNeb inhalations, Pulmicort inhalations. Anticoagulated with warfarin. Antibiotics in the form of cefepime and azithromycin. Patient is seen today 07/15/2021 in follow-up on the regular medical floor. Awake and alert in no acute distress. Currently sitting up in bed. Doing about the same today as compared to yesterday. Maintaining O2 saturations in the 90s on 3 L/m per nasal cannula. Sputum culture pending. INR 1.4. He is continued on DuoNeb inhalations, Pulmicort inhalations, antibiotics in form of cefepime and azithromycin. Warfarin dosed by pharmacy. The patient is seen today 07/19/2021 in follow-up on the regular medical floor. He is currently sitting up in bed. Awake and alert in no acute distress. Speech therapy is working with the patient and helping him see her breakfast. modified barium swallow performed yesterday revealed no evidence for aspiration or penetration. today's chest x-ray continues to show apical pleural thickening, patchy density in the right upper lobe similar to previous. No significant changes. He is currently maintaining O2 saturations in the mid 90s on 4 L high flow nasal cannula. Afebrile. Hemodynamically stable. sputum culture revealed no growth. White count 21.6. Hemoglobin 13.7. Sodium 141. Potassium 4.4. BUN 46.8. Creatinine 1.1. Glucose 123. He is continued on DuoNeb inhalations, Pulmicort inhalations, IV Solu-Medrol. Antibiotics in the form of cefepime. Anticoagulated with warfarin. The patient is seen today 07/20/2021 in follow-up on the regular medical floor. He is also awake and alert in no acute distress. Breathing a bit easier today compared to yesterday. Currently sitting up high in bed. Eating his breakfast. More awake and alert today. He is requiring 15 L high flow nasal cannula. He's been afebrile. Hemodynamically stable. CT angiogram of the chest performed yesterday revealed evidence of COPD but no evidence of pulmonary embolism. Evidence of some bronchitis. Sputum culture revealed no growth. INR 2.0. Glucose 162. He is continued on IV Solu-Medrol, Pulmicort, DuoNeb inhalations M0 warfarin for anticoagulation and he also remains on IV Lasix at 40 mg every 12 hours. The patient is incontinent. No accurate intake and ou tput. Objective - Vital Signs Vital signs: Vital Signs Temp 96.7 F L 07/20/21 07:53 Pulse 88 07/20/21 10:42 Resp 12 07/20/21 10:42 BP 125/79 07/20/21 07:53 Pulse Ox 97 07/20/21 07:53 Intake & Output 07/19/21 07/20/21 07/20/21 18:59 06:59 18:59 Intake Total 100 Balance 100 Intake: Intake, IV Titration 100 Amount Cefepime 2 gm In Sodium 100 Chloride 0.9% 100 ml @ 25 mls/hr IVPB Q12HR [facility] Rx #:[id number] Other: Voiding Method Bedside Commode Bedside Commode Diaper Diaper Diaper Incontinent # Voids 5 1 # Bowel Movements 1 - Exam GENERAL EXAM: Alert, pleasant 81-year-old gentleman, on 15 L high flow nasal cannula, sitting up in bed, comfortable in no apparent distress. HEAD: Normocephalic. EYES: Normal reaction of pupils, equal size. NOSE: Clear with pink turbinates. THROAT: No erythema or exudates. NECK: No masses, no JVD. CHEST: No chest wall deformity. LUNGS: Equal air entry with bilateral scattered rhonchi, end expiratory wheeze, diminished CVS: S1 and S2 normal with no audible murmur, regular rhythm. ABDOMEN: No hepatosplenomegaly, normal bowel sounds, no guarding or rigidity. SPINE: No scoliosis or deformity SKIN: No rashes CENTRAL NERVOUS SYSTEM: No focal deficits, tone is normal in all 4 extremities. EXTREMITIES: There is no peripheral edema. No clubbing, no cyanosis. Peripheral pulses are intact. - Labs CBC & Chem 7: 07/19/21 06:42 07/19/21 06:42 Labs: Abnormal Lab Results - Last 24 Hours (Table) 07/19/21 07/19/21 07/19/21 Range/Units 06:42 11:38 17:14 PT 15.1 H (9.9-11.9) sec INR 1.36 H (0.90-1.11) POC Glucose (mg/dL) 167 H 160 H (75-99) mg/dL 07/19/21 07/20/21 07/20/21 Range/Units 20:10 06:34 07:00 PT 20.1 H (9.9-11.9) sec INR 2.0 H (0.90-1.11) POC Glucose (mg/dL) 126 H 162 H (75-99) mg/dL Assessment and Plan Assessment: 1 Acute hypoxemic respiratory failure and acute exacerbation of chronic obstructive pulmonary disease and suspected early pneumonia. Though pro calcito morteza 0.05. Modified barium swallow from 07/18/2021 did not reveal any evidence of aspiration or penetration. Follow-up chest x-ray stable. CT angiogram ruled out pulmonary embolism. There is evidence of COPD/bronchitis. 2 Mildly impaired left ventricular systolic function with ejection fraction 45- 50%. 3 Rule out possibility of urinary tract infection, patient is covered with Rocephin 4 Chronic A. 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 He has since been vaccinated and boosted. Plan: The patient was seen and evaluated Computed tomography scan and labs reviewed Continue cefepime, discontinue azithromycin Continue bronchodilators, IV Solu-Medrol Have discontinue Pulmicort. Add Symbicort Continue IV diuretics Titrate the FiO2 as tolerated Prognosis is poor He is a DO NOT INTUBATE/DO NOT RESUSCITATE CODE STATUS May be considered for hospice We will continue to follow I, the cosigning physician, performed a history & physical examination of the patient. Lungs sounds with bilateral end expiratory wheeze, bilateral rhonchi. Maintaining O2 saturations in the 90s on 15 L/m per nasal cannula. I discussed the assessment and plan of care with my nurse practitioner, Kia Driscoll. I attest to the above note as dictated by her.
[2021-07-20 11:45] LABS: Glucose,Whole Blood 181 mg/dL (75-99)
[2021-07-20 17:44] LABS: Glucose,Whole Blood 137 mg/dL (75-99)
[2021-07-20] MEDS ORDERED: WARFARIN 5 MG TAB PO ONE (18:00)
[2021-07-20] MEDS: SYMBICORT 160-4.5 MCG INHALER INHALATION SCH (19:27)
[2021-07-20 20:43] LABS: Glucose,Whole Blood 245 mg/dL (75-99)
[2021-07-20] MEDS: ATORVASTATIN 20 MG TAB PO SCH (21:00)
[2021-07-20] MEDS: CHOLECALCIFEROL 25 MCG (1000 IU) TABLET PO SCH (21:00)
[2021-07-20] MEDS: TAMSULOSIN 0.4 MG CAP.ER.24H PO SCH (21:01)
[2021-07-20] MEDS: BUDESONIDE 0.5 MG/2 ML NEBU INHALATION SCH (22:45)
[2021-07-21] MEDS: methylPREDNISolone SOD SUCCI 125 MG/2 ML VIAL IV SCH ×3 (00:22→11:30)
[2021-07-21 01:19] LABS: Glucose,Whole Blood 261 mg/dL (75-99)
[2021-07-21] MEDS: IPRATROPIUM-ALBUTEROL 3 ML NEB INHALATION SCH ×3 (02:57→10:47)
[2021-07-21] MEDS: PANTOPRAZOLE 40 MG TABLET PO SCH (05:43)
[2021-07-21 07:04] LABS: Glucose,Whole Blood 158 mg/dL (75-99)
[2021-07-21] MEDS: SYMBICORT 160-4.5 MCG INHALER INHALATION SCH (07:20)
[2021-07-21] MEDS: INSULIN ASPART (NovoLOG) 100 UNIT/ML VIAL SQ SCH ×2 (07:27→11:30)
[2021-07-21 07:35] LABS: INR 3.7 (<1.2); Prothrombin Time 37.1 sec (9.0-12.0)
[2021-07-21 07:54] VITALS: BP 139/80; TEMP 98.6
[2021-07-21] MEDS ORDERED: QUEtiapine 25 MG TAB PO ONE (08:40)
[2021-07-21] MEDS: DILTIAZEM CD 120 MG CAP.ER.24H PO SCH (08:46)
[2021-07-21] MEDS: METOPROLOL TARTRATE 25 MG TAB PO SCH (08:46)
[2021-07-21] MEDS: ASPIRIN 81 MG PO SCH (08:46)
[2021-07-21] MEDS: FUROSEMIDE 10 MG/ML 4 ML VIAL IV SCH (08:52)
[2021-07-21] MEDS: CEFEPIME 2 GM in SODIUM CHLORIDE 0.9% 100 ML IVPB SCH (08:54)
--- NOTE | 2021-07-21 09:17 | P.DS ---
Providers Date of admission: 07/12/21 14:57 Attending physician: Josue Metcalf Consults: 07/11/21 18:06 Consult Physician Routine Consulting Provider: Rex Cifuentes Consult Reason/Comments: coped exacerbation Do you want consulting provider notified?: Yes, Notify in am Primary care physician: Johnathan Allredqvi [place] [facility] Course: Final Diagnosis Acute COPD exacerbation, noncompliant with home oxygen, now on 15L NC HF, with BiPAP 60% fio2 on standby, on IV cefepime, PO azithro IV solumedrol Possible early right upper lobe community acquired pneumonia, procalcitonin level 0.05, repeat procalcitonin negative as well, continues on IV cefepime and PO azithromycin Possible aspiration pneumonia, MBS negative for aspiration or penetration, on 15L HF Cannula Elevated D-Dimer 1.2 in a COVID negative patient, CTA negative for acute PE Leukocytosis, secondary to above, yesterday , no labs available from today. Coagulopathy secondary to Coumadin, resolved, INR today 2.0, on lovenox bridge, coumadin Severe complete compression fracture in the mid thoracic spine with retropulsion which is new, as well as additional compression fracture appears progressed in the low thoracic spine. Orthopedics consult. Hematuria possibly related to coagulopathy, continue to monitor Chronic atrial fibrillation on Coumadin History of chronic systolic congestive heart failure, most recent echo in June of 2020 shows low normal EF of 50-55%, mild exacerbation now on IV lasix Enlarged right hilar lymph nodes found on CT scan in Jun, recommended at that time for repeat CT in 3 months Memory impairment 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 History of GERD Hypertension Hyperlipidemia History of BPH History of chronic neck pain with radiculopathy History of tobacco use DVT Prophylaxis Coumadin GI Prophylaxis NO CODE Discharge Disposition Patient discharged to [facility] with [facility] on 13 L HF cannula. INR today 3.7, hold coumadin today and check PT/INR tomorrow and follow up with primary at [facility] for coumadin dosing tomorrow. Discharged on course of oral steroids, oral antibiotics. Hospital Course This is a pleasant 81-year-old male who presents with past medical history signi ficant for atrial fibrillation on Coumadin, COPD, GERD reflux, hyperlipidemia, hypertension, pneumonia, BPH, CBD with FEV1 of 45% predicted, chronic back pain, chronic neck pain with radiculopathy and numbness and tingling involving right upper extremity and hand and the lower extremity is, history of childhood left eye injury with limited vision involving the left eye, he is status post cervical decompression discectomy and fusion with bone graft. Patient presented to the hospital for [facility] with tachypnea and expiratory wheezing he is a poor historian, he is alert 1-2 knows he is in the hospital could not tell the name of the president. He doesn't remember all the details but knows that he became short of breath and had some chest pressure with coughing currently he is not complaining of any chest pain. Patient also has a cough with phlegm green to yellow, he was unable to produce a deep sputum so we were unable to collect a sputum sample this admission. Patient does not use oxygen [facility], he walks with a walker. Denies current smoking alcohol or illicit drugs, there are no urinary symptoms, no diarrhea nausea or vomiting. He has an ex-smoker. EMS when arriving to [facility] in short of breath oxygen saturation in the low 80s. He was started on 4 L nasal cannula with oxygen saturation in the 90s. Labs on admission include white blood cell count 12, INR 4.6, sodium 139, potassium 4.2, BUN 31, creatinine 0.92, glucose 131, troponin negative 3, BNP 864. Urinalysis negative for infection. D-dimer was also done 1.2 this admission, with a CT angiography negative for PE. Chest x-ray on admission shows COPD with mild interstitial infiltrate in the right upper lobe improving interstitial infiltrate in the lower lobes. He was admitted to hospital for COPD exacerbation with a consult placed to pulmonary. He was started on IV Cefepime and PO azithromycin, DuoNeb and Pulmicort. Procalcitonin-0.06. Coronavirus not detected 2. Despite treatment with steroids, IV Lasix, antibiotics and oxygen support patient continued to require increased oxygen and is now on a 13-15 L high flow nasal cannula with oxygen saturation of 93%. There was concern for aspiration and patient underwent a modified barium swallow which showed no evidence for aspiration or penetration. Modified barium swallow was performed because earlier the morning of July 18, patient was choking after eating breakfast and he began to cough and desaturate requiring BiPAP support which he did not tolerate well. Diet recommended is ground with nectar thick liquids, and he is tolerating that well. Patient does have a legal guardian however his son and daughter were up to the hospital to discuss hospice due to his overall prognosis and poor response to treatments. Patients daughter had a Hospice company already in [facility] and had a business card on her in the room with patient on Jul 20. Discussed in [facility] and prognosis at the bedside with patient, son and padmini garcia. Apparently, the hospice discussion was started prior to admission, however, care team wanted to try treatment. Patient continues with mentation AO x 2, however patient is a poor historian and his overall comprehension of his medical diagnosis is poor. 07/21/2021 Patient evaluated today in the room with son at the bedside. Daughter spent the evening with the patient until 0200. This morning daughter wanted patient discharged at 0900 to return to [facility] and drive him there. However, he is requiring oxygen 13L HF cannula currently and will need to be transported via EMS back to [facility] for close monitoring. Legal guardian did not give approval for daughter to drive patient. Patient this morning a bit confused, states he is not going back to [facility] and he is going there to get his money and will go to his sisters house with his son and brother. Son at bedside did not correct patient and nodded in agreement. This morning patient had an episode where he desaturated and had difficulty breathing but has recovered. Most recent labs show a WBC of 21.68, however, patient was started on IV steroids, this is probably reactive. He will taper his steroids on DC and continue on a short c ourse of oral antibiotics on DC although procalcitonin has remained WNL and not suggestive of bacterial infection. Otherwise sugars have been in the 150's, BUN 46.8, creatinine 1.1, sodium 141, potassium 4.4. Blood pressure today 139/80, heart rate 66, afebrile. Patient with faint wheezing and rhonchi scattered. S1 S2 auscultated, abdomen soft and nontender, no peripheral edema. DC on appropriate medications to follow up with Hospice at [facility]. Please see medication reconciliation for a list of current medications. Thank you for allowing us to participate in the care of this patient. Patient Condition at Discharge: Fair Plan - Discharge Summary Discharge Rx Participant: No New Discharge Prescriptions: New Cefdinir [Omnicef] 300 mg PO Q12HR 7 Days #14 capsule predniSONE 0 mg PO DIRECTED 4 Days #10 tab QUEtiapine [SEROquel] 12.5 mg PO HS #3 tab Budesonide-Formot 160-4.5 Mcg [Symbicort 160-4.5 Mcg Inhaler] 2 puff INHALATION RT-BID gm Continue Diltiazem HCl [Diltiazem HCl 24Hr ER (CD)] 120 mg PO DAILY@0900 Acetaminophen Tab [Tylenol] 650 mg PO Q6HR PRN tab PRN Reason: Mild Pain Or Fever >= 100.5 Albuterol Inhaler [Ventolin Hfa Inhaler] 1 puff INHALATION RT-Q4H PRN PRN Reason: Shortness Of Breath Ipratropium-Albuterol Nebulize [Duoneb 0.5 mg-3 mg/3 ml Soln] 3 ml INHALATION RT-TID@,, Tamsulosin [Flomax] 0.4 mg PO HS@2100 Ipratropium-Albuterol Nebulize [Duoneb 0.5 mg-3 mg/3 ml Soln] 3 ml INHALATION RT-Q4H PRN PRN Reason: Shortness Of Breath Or Wheezing Multivitamins, Thera [Multivitamin (formulary)] 1 tab PO BID@0900,2100 Lactose-Reduced Food [Ensure Plus] 240 ml PO DAILY Cholecalciferol [Vitamin D3 (25 Mcg = 1000 Iu)] 50 mcg PO HS@2100 Warfarin Sodium 6 mg PO SUTUTHSA@1700 Warfarin Sodium 4 mg PO MOWEFR@1700 Metoprolol Tartrate [Lopressor] 25 mg PO BID@0900,2100 Furosemide [Lasix] 20 mg PO DAILY@0600 Aspirin 81 mg PO DAILY tab Depo-Medrol 80mg/Ml 80 mg INJ ONCE Z-Guard 1 applic TOPICAL BID Folic Acid 1 mg PO DAILY@0900 Pantoprazole [Protonix] 40 mg PO DAILY@0600 Atorvastatin [Lipitor] 20 mg PO HS tab Discontinued cefTRIAXone [Rocephin] 1 gm IVPB ONCE Cefuroxime Axetil [Ceftin] 500 mg PO BID@0900,2100 predniSONE See Taper PO DAILY Discharge Medication List Diltiazem HCl [Diltiazem HCl 24Hr ER (CD)] 120 mg PO DAILY@0900 04/04/18 [History] Acetaminophen Tab [Tylenol] 650 mg PO Q6HR PRN tab 07/07/20 [Rx] Albuterol Inhaler [Ventolin Hfa Inhaler] 1 puff INHALATION RT-Q4H PRN 08/26/20 [History] Ipratropium-Albuterol Nebulize [Duoneb 0.5 mg-3 mg/3 ml Soln] 3 ml INHALATION RT-TID@06,,08/26/20 [History] Tamsulosin [Flomax] 0.4 mg PO HS@209908/26/20 [History] Cholecalciferol [Vitamin D3 (25 Mcg = 1000 Iu)] 50 mcg PO HS@209906/08/21 [History] Ipratropium-Albuterol Nebulize [Duoneb 0.5 mg-3 mg/3 ml Soln] 3 ml INHALATION RT-Q4H PRN 06/08/21 [History] Lactose-Reduced Food [Ensure Plus] 240 ml PO DAILY 06/08/21 [History] Metoprolol Tartrate [Lopressor] 25 mg PO BID@0900,209906/08/21 [History] Multivitamins, Thera [Multivitamin (formulary)] 1 tab PO BID@0900,209906/08/21 [History] Warfarin Sodium 4 mg PO MOWEFR@1700 06/08/21 [History] Warfarin Sodium 6 mg PO SUTUTHSA@1700 06/08/21 [History] Folic Acid 1 mg PO DAILY@0900 06/25/21 [History] Furosemide [Lasix] 20 mg PO DAILY@0600 06/25/21 [History] Pantoprazole [Protonix] 40 mg PO DAILY@0606/25/21 [History] Aspirin 81 mg PO DAILY tab 06/28/21 [Rx] Atorvastatin [Lipitor] 20 mg PO HS tab 06/28/21 [Rx] Depo-Medrol 80mg/Ml 80 mg INJ ONCE 07/11/21 [History] Z-Guard 1 applic TOPICAL BID 07/11/21 [History] Budesonide-Formot 160-4.5 Mcg [Symbicort 160-4.5 Mcg Inhaler] 2 puff INHALATION RT-BID gm 07/21/21 [Rx] Cefdinir [Omnicef] 300 mg PO Q12HR 7 Days #14 capsule 07/21/21 [Rx] QUEtiapine [SEROquel] 12.5 mg PO HS #3 tab 07/21/21 [Rx] predniSONE 0 mg PO DIRECTED 4 Days #10 tab 07/21/21 [Rx] Follow up Appointment(s)/Referral(s): Johnathan Bustillos MD [Primary Care Provider] - 1-2 days Ambulatory/Diagnostic Orders: Prothrombin Time INR [LAB.AMB] Time Frame: 1 Day, Location: None Selected Patient Instructions/Handouts: Prednisone (By mouth), Quetiapine (By mouth), Cefdinir (By mouth), Dyspnea (ED) Activity/Diet/Wound Care/Special Instructions: [facility] on discharge to open at [facility] when patient returns Hold coumadin Today, check PT/INR tomorrow Discharge Disposition: TRANSFER TO SNF/ECF
[2021-07-21 10:14] VITALS: RESP 16
[2021-07-21 10:58] VITALS: PULSE 77
[2021-07-21 11:07] LABS: Glucose,Whole Blood 186 mg/dL (75-99)
--- NOTE | 2021-07-21 11:10 | P.PN ---
Subjective Progress Note Date: 07/21/21 This is a very pleasant 80-year-old male patient with multiple medical problems including COPD with baseline FEV1 of 45% of predicted, chronic A. fib with history of ablation, and patient reverted back to A. fib, on Coumadin for anticoagulation, hypertension, hyperlipidemia, former smoker, chronic back pain and chronic neck pain. He has been currently residing at [facility] [place] and they brought him here by EMS yesterday feeling he was short of breath and had oxygen saturations in the low 80s. He is seen today in consultation emergency department. He's currently sitting up in a stretcher. Awake and alert. He has a active cough of greenish brown sputum. He's shortness of breath with minimal conversation. Currently maintaining O2 saturations in the mid 90s on 4 L/m per nasal cannula. Afebrile. Hemodynamically stable. Chest x-ray reveals evidence of COPD. Mild interstitial infiltrates in the right upper lobe. Improving interstitial infiltrates on our lungs compared to 06/25/2021. White count 11.1. Hemoglobin 13.5. INR 3.3. Sodium 137. Potassium 4.5. Creatinine 0.89. Taniya na virus by PCR negative. He's been initiated on ceftriaxone and azithromycin. DuoNeb inhalations, Pulmicort inhalations. The patient is seen today 07/13/2021 in follow-up on the regular medical floor. He is currently sitting up in a chair at the bedside. Awake and alert in no acute distress. Breathing a bit easier today compared to yesterday. He was admitted for acute hypoxemic respiratory failure with acute exacerbation of COPD and suspected early pneumonia. He is currently maintaining O2 saturations in the 90s on 4 L/m per nasal cannula. He is afebrile. Hemodynamically stable. Pro-calcitonin 0.05. No new labs today. He is continued on cefepime and azithromycin. He remains on DuoNeb inhalations, Pulmicort inhalations. The patient is seen today 07/14/2021 in follow-up on the regular medical floor. He is awake and alert in no acute distress. Sitting up in a chair at the bedside. Maintaining O2 saturations up to 100% on 3 L/m per nasal cannula. Follow up chest x-ray reveals mild patchy right upper lobe and right basilar infiltrate. Basilar left infiltrate. Pro-calcitonin was 0.05. Sputum culture is pending. White count 11.0. Hemoglobin 12.7. INR 2.0. Sodium 139. Potassium 3.9. Creatinine 0.89. Continued on DuoNeb inhalations, Pulmicort inhalations. Anticoagulated with warfarin. Antibiotics in the form of cefepime and azithromycin. Patient is seen today 07/15/2021 in follow-up on the regular medical floor. Awake and alert in no acute distress. Currently sitting up in bed. Doing about the same today as compared to yesterday. Maintaining O2 saturations in the 90s on 3 L/m per nasal cannula. Sputum culture pending. INR 1.4. He is continued on DuoNeb inhalations, Pulmicort inhalations, antibiotics in form of cefepime and azithromycin. Warfarin dosed by pharmacy. The patient is seen today 07/19/2021 in follow-up on the regular medical floor. He is currently sitting up in bed. Awake and alert in no acute distress. Speech therapy is working with the patient and helping him see her breakfast. modified barium swallow performed yesterday revealed no evidence for aspiration or penetration. today's chest x-ray continues to show apical pleural thickening, patchy density in the right upper lobe similar to previous. No significant changes. He is currently maintaining O2 saturations in the mid 90s on 4 L high flow nasal cannula. Afebrile. Hemodynamically stable. sputum culture revealed no growth. White count 21.6. Hemoglobin 13.7. Sodium 141. Potassium 4.4. BUN 46.8. Creatinine 1.1. Glucose 123. He is continued on DuoNeb inhalations, Pulmicort inhalations, IV Solu-Medrol. Antibiotics in the form of cefepime. Anticoagulated with warfarin. The patient is seen today 07/20/2021 in follow-up on the regular medical floor. He is also awake and alert in no acute distress. Breathing a bit easier today compared to yesterday. Currently sitting up high in bed. Eating his breakfast. More awake and alert today. He is requiring 15 L high flow nasal cannula. He's been afebrile. Hemodynamically stable. CT angiogram of the chest performed yesterday revealed evidence of COPD but no evidence of pulmonary embolism. Evidence of some bronchitis. Sputum culture revealed no growth. INR 2.0. Glucose 162. He is continued on IV Solu-Medrol, Pulmicort, DuoNeb inhalations M0 warfarin for anticoagulation and he also remains on IV Lasix at 40 mg every 12 hours. The patient is incontinent. No accurate intake and ou tput. The patient is seen today 07/21/2021 in follow-up on the regular medical floor. He is currently sitting up in bed. Awake and alert in no acute distress. Appears a bit stronger and less short of breath today compared to yesterday. Still with end expiratory wheeze. Still on 8 L high flow nasal cannula. He is afebrile. Hemodynamically stable. INR 3.7. He remains on Symbicort, DuoNeb i nhalations, IV Solu-Medrol and IV diuretics. Objective - Vital Signs Vital signs: Vital Signs Temp 98.6 F 07/21/21 07:53 Pulse 77 07/21/21 10:57 Resp 16 07/21/21 09:58 BP 139/80 07/21/21 07:53 Pulse Ox 99 07/21/21 07:24 Intake & Output 07/20/21 07/21/21 07/21/21 18:59 06:59 18:59 Intake Total 240 300 Output Total 600 Balance -360 300 Intake: Intake, IV Titration 100 Amount Cefepime 2 gm In Sodium 100 Chloride 0.9% 100 ml @ 25 mls/hr IVPB Q12HR [facility] Rx #:[id number] Oral 240 200 Output: Urine 600 Other: Voiding Method Diaper Diaper Diaper Incontinent Incontinent Incontinent # Voids 2 4 1 - Exam GENERAL EXAM: Alert, pleasant 81-year-old gentleman, on 8 L high flow nasal can nula, sitting up in bed, comfortable in no apparent distress. HEAD: Normocephalic. EYES: Normal reaction of pupils, equal size. NOSE: Clear with pink turbinates. THROAT: No erythema or exudates. NECK: No masses, no JVD. CHEST: No chest wall deformity. LUNGS: Equal air entry with bilateral scattered rhonchi, end expiratory wheeze, diminished CVS: S1 and S2 normal with no audible murmur, regular rhythm. ABDOMEN: No hepatosplenomegaly, normal bowel sounds, no guarding or rigidity. SPINE: No scoliosis or deformity SKIN: No rashes CENTRAL NERVOUS SYSTEM: No focal deficits, tone is normal in all 4 extremities. EXTREMITIES: There is no peripheral edema. No clubbing, no cyanosis. Peripheral pulses are intact. - Labs CBC & Chem 7: 07/19/21 06:42 07/19/21 06:42 Labs: Abnormal Lab Results - Last 24 Hours (Table) 07/20/21 07/20/21 07/20/21 Range/Units 11:43 17:42 20:33 PT (9.0-12.0) sec INR (<1.2) POC Glucose (mg/dL) 181 H 137 H 245 H (75-99) mg/dL 07/21/21 07/21/21 07/21/21 Range/Units 00:58 07:01 07:09 PT 37.1 H (9.0-12.0) sec INR 3.7 H (<1.2) POC Glucose (mg/dL) 261 H 158 H (75-99) mg/dL Assessment and Plan Assessment: 1 Acute hypoxemic respiratory failure and acute exacerbation of chronic obstructive pulmonary disease and suspected early pneumonia. Though pro calcitonin 0.05. Modified barium swallow from 07/18/2021 did not reveal any evidence of aspiration or penetration. Follow-up chest x-ray stable. CT angiogram ruled out pulmonary embolism. There is evidence of COPD/bronchitis. 2 Mildly impaired left ventricular systolic function with ejection fraction 45- 50%. 3 Rule out possibility of urinary tract infection, patient is covered with Rocephin 4 Chronic A. 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 He has since been vaccinated and boosted. 16 Poor overall functional performance based on the above-mentioned multiple comorbidities. Plan: The patient was seen and evaluated His son is at the bedside Overall prognosis is poor He is a DO NOT INTUBATE/DO NOT RESUSCITATE CODE STATUS Being considered for return to [facility] [place] with hospice I, the cosigning physician, performed a history & physical examination of the patient. Lungs sounds with bilateral end expiratory wheeze, bilateral rhonchi. Maintaining O2 saturations in the 90s on 8 L/m per nasal cannula. I discussed the assessment and plan of care with my nurse practitioner, Kia Driscoll. I attest to the above note as dictated by her.
[2021-07-21] MEDS: FOLIC ACID 1 MG TAB PO SCH (11:39)
[2021-07-21] MEDS ORDERED: WARFARIN 0.5 MG TAB PO ONE (18:00)
== END 2021-07-21 11:45 | DRG 193 ==
LOC: EC 11:22 → 6NMEDSUR 18:05 → OBSVTOIN 07-12 14:57 → 6NMEDSUR 07-12 15:44 → 5NMEDONC 07-12 15:47
PROVIDERS: ADMIT Internal Medicine; ATTEND Internal Medicine
PROC: 5A09357 Assistance with Respiratory Ventilation, Less than 24 Consecutive Hours, Continuous Positive Airway Pressure (ICD-10-PCS; principal; 2021-07-18)
PROC: 5A0935A Assistance with Respiratory Ventilation, Less than 24 Consecutive Hours, High Flow/Velocity Cannula (ICD-10-PCS; 2021-07-18)
DX: J18.9 Pneumonia, unspecified organism (principal); J96.01 Acute respiratory failure with hypoxia; I50.22 Chronic systolic (congestive) heart failure; I48.20 Chronic atrial fibrillation, unspecified; N39.0 Urinary tract infection, site not specified; J43.9 Emphysema, unspecified; I49.3 Ventricular premature depolarization; E78.5 Hyperlipidemia, unspecified; F02.80 Dementia in other diseases classified elsewhere, unspecified severity, without behavioral disturbance, psychotic disturbance, mood disturbance, and anxiety; G30.9 Alzheimer's disease, unspecified; F41.9 Anxiety disorder, unspecified; G89.29 Other chronic pain; I11.0 Hypertensive heart disease with heart failure; N40.0 Benign prostatic hyperplasia without lower urinary tract symptoms; Q63.1 Lobulated, fused and horseshoe kidney; R32 Unspecified urinary incontinence; R79.1 Abnormal coagulation profile; T45.515A Adverse effect of anticoagulants, initial encounter; Z20.822 Contact with and (suspected) exposure to COVID-19; Z86.16 Personal history of COVID-19; Z66 Do not resuscitate; Z51.5 Encounter for palliative care; I83.93 Asymptomatic varicose veins of bilateral lower extremities; E55.9 Vitamin D deficiency, unspecified; G47.00 Insomnia, unspecified; Z79.899 Other long term (current) drug therapy; M54.12 Radiculopathy, cervical region; M54.9 Dorsalgia, unspecified; Z79.82 Long term (current) use of aspirin; Z79.01 Long term (current) use of anticoagulants; Z79.51 Long term (current) use of inhaled steroids; Z80.3 Family history of malignant neoplasm of breast; Z80.8 Family history of malignant neoplasm of other organs or systems; Z81.1 Family history of alcohol abuse and dependence; Z85.828 Personal history of other malignant neoplasm of skin; Z87.01 Personal history of pneumonia (recurrent); Z87.442 Personal history of urinary calculi; Z87.891 Personal history of nicotine dependence; Z90.49 Acquired absence of other specified parts of digestive tract; Z91.19 Patient's noncompliance with other medical treatment and regimen; Z98.890 Other specified postprocedural states; Z98.42 Cataract extraction status, left eye; Z98.41 Cataract extraction status, right eye
CPT/HCPCS: 36415; 36600; 71045; 71046; 71275; 74230; 80048; 80076; 81001; 82805; 83735; 83880; 84145; 84484; 85025; 85379; 85610; 85730; 87070; 87205; 87635; 93005; 94640; 94660; 94760; 96374; 99285

== ENCOUNTER 2021-10-19 08:55 | Inpatient (IN) | payer MEDICARE, OTHER ==
[2021-10-19] MEDS ORDERED: SODIUM CHLORIDE 0.9% 1,000 ML IV STA (09:03)
--- NOTE | 2021-10-19 09:08 | ED ---
Altered Mental Status HPI - General Chief Complaint: Altered Mental Status Stated Complaint: AMS Time Seen by Provider: 10/19/21 09:00 Source: patient, EMS, RN notes reviewed, old records reviewed Mode of arrival: EMS Limitations: no limitations - History of Present Illness Initial Comments: 81-year-old male history of multiple medical problems including atrial fibrillation TIA hypertension COPD who presents with complaints of decreased responsiveness he apparently had been walking per usual he is normally awake alert oriented 4 and sometime after 8 AM started becoming less responsive he was reports of minimal pupillary response and left-sided weakness. He was brought in by EMS he apparently did take a swing at one of the medics. He was not following commands. The evaluation apparently was difficult to the inability or uncooperative demeanor the patient. No reports of any fever chills nausea vomiting sweats no reports of any falls. MD Complaint: altered mental status, decreased responsiveness - Related Data Home Medications Medication Instructions Recorded Confirmed Diltiazem HCl [Diltiazem HCl 24Hr 120 mg PO DAILY@0904/04/18 10/19/21 ER (CD)] Albuterol Inhaler [Ventolin Hfa 1 puff INHALATION RT-Q4H PRN 08/26/20 10/19/21 Inhaler] Tamsulosin [Flomax] 0.4 mg PO HS@209908/26/20 10/19/21 Ipratropium-Albuterol Nebulize 3 ml INHALATION RT-Q4H PRN 06/08/21 10/19/21 [Duoneb 0.5 mg-3 mg/3 ml Soln] Metoprolol Tartrate [Lopressor] 25 mg PO BID@09,209906/08/21 10/19/21 Furosemide [Lasix] 20 mg PO DAILY@59906/25/21 10/19/21 Pantoprazole [Protonix] 40 mg PO DAILY@59906/25/21 10/19/21 MORPHINE ORAL MARK CONC 20mg/mL 5 mg PO Q3H PRN 10/19/21 10/19/21 [Roxanol Oral Soln Conc 20MG/ML] Sennosides/Docusate Sodium [Senna 2 tab PO Q3D PRN 10/19/21 10/19/21 Plus 8.6-50 mg Tablet] Warfarin [Coumadin] 5 mg PO DAILY@1700 10/19/21 10/19/21 Previous Rx's Medication Instructions Recorded Acetaminophen Tab [Tylenol] 650 mg PO Q6HR PRN tab 07/07/20 Aspirin 81 mg PO DAILY tab 06/28/21 Atorvastatin [Lipitor] 20 mg PO HS tab 06/28/21 Budesonide-Formot 160-4.5 Mcg 2 puff INHALATION RT-BID gm 07/21/21 [Symbicort 160-4.5 Mcg Inhaler] Allergies Allergy/AdvReac Type Severity Reaction Status Date / Time No Known Allergies Allergy Verified 10/19/21 09:39 Review of Systems ROS Statement: Those systems with pertinent positive or pertinent negative responses have been documented in the HPI. ROS Other: All systems not noted in ROS Statement are negative. Past Medical History Past Medical History: Atrial Fibrillation, Cancer, Heart Failure, COPD, Dementia, GERD/Reflux, Hyperlipidemia, Hypertension, Pneumonia, Prostate Disorder Additional Past Medical History / Comment(s): Pt recently admitted to [facility] on 06/28/21 with expressive dysphasia, possible acute TIA or acute stroke. Other hx: Chronic cervical pain with radiculopathy/numbness and tingling R arm/hand, chronic back pain with numbness/tingling bilateral legs, bilateral leg varicosities, kidney stone/surgically removed, BPH, insomnia, weakness, vitamin D deficiency. 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 Past Anesthesia/Blood Transfusion Reactions: No Reported Reaction Past Psychological History: No Psychological Hx Reported Smoking Status: Former smoker Past Alcohol Use History: Unable to Obtain Past Drug Use History: Unable to Obtain - Past Family History Father Additional Family Medical History / Comment(s): Father was a drinker. He at the age of 80yrs. Mother Family Medical History: No Reported History Additional Family Medical History / Comment(s): Mother was healthy and lived to b90yrs old. Daughter(s) Family Medical History: Cancer Additional Family Medical History / Comment(s): Nely had breast cancer. Brother(s) Family Medical History: Cancer Additional Family Medical History / Comment(s): Brother had melanoma skin cancer. Sister(s) Family Medical History: Cancer Additional Family Medical History / Comment(s): Sister had melanoma skin cancer. General Exam - General Exam Comments Initial Comments: Physical well-developed well-nourished awake male patient who does periodically follow commands Limitations: no limitations General appearance: alert, lethargic Head exam: Present: atraumatic, normocephalic, normal inspection Eye exam: Present: normal appearance, PERRL, EOMI. Absent: scleral icterus, conjunctival injection, periorbital swelling ENT exam: Present: mucous membranes dry Neck exam: Present: normal inspection, full ROM, other (No stridor JVD or bruits). Absent: tenderness, meningismus, lymphadenopathy Respiratory exam: Present: normal lung sounds bilaterally. Absent: respiratory distress, wheezes, rales, rhonchi, stridor Cardiovascular Exam: Present: irregular rhythm. Absent: systolic murmur, diastolic murmur, rubs, gallop, clicks GI/Abdominal exam: Present: soft, normal bowel sounds. Absent: distended, tenderness, guarding, rebound, rigid, bruit, pulsatile mass Extremities exam: Present: normal inspection, full ROM, normal capillary refill. Absent: tenderness, pedal edema, joint swelling, calf tenderness Back exam: Present: normal inspection Neurological exam: Present: alert, oriented X3, CN II-XII intact Psychiatric exam: Present: normal affect, normal mood Skin exam: Present: warm, dry, intact, normal color. Absent: rash Course Vital Signs 10/19/21 10/19/21 10/19/21 09:00 11:02 12:19 Temperature 98.7 F Pulse Rate 83 75 82 Respiratory 16 16 20 Rate Blood Pressure 127/69 118/74 120/77 O2 Sat by Pulse 93 L 99 98 Oximetry - Reevaluation(s) Reevaluation #1: 10/19/21 14:32 Of note I did reevaluate the patient on multiple occasions. Medical Decision Making - Medical Decision Making I did discuss the case with the patient's granddaughter who was present as well as with him and the patient and with Dr. Gaston patient be admitted for evaluation of TIA also did demonstrate evidence of dehydration a urinary retenti on. - Lab Data Result diagrams: 10/19/21 09:20 10/19/21 09:20 Lab Results 10/19/21 10/19/21 10/19/21 Range/Units 09:20 09:20 09:20 WBC 11.4 H (3.8-10.6) k/uL RBC 4.14 L (4.30-5.90) m/uL Hgb 12.3 L (13.0-17.5) gm/dL Hct 37.6 L (39.0-53.0) % MCV 90.9 (80.0-100.0) fL MCH 29.7 (25.0-35.0) pg MCHC 32.7 (31.0-37.0) g/dL RDW 14.0 (11.5-15.5) % Plt Count 210 (150-450) k/uL MPV 8.2 Neutrophils % 71 % Lymphocytes % 15 % Monocytes % 9 % Eosinophils % 1 % Basophils % 1 % Neutrophils # 8.1 H (1.3-7.7) k/uL Lymphocytes # 1.7 (1.0-4.8) k/uL Monocytes # 1.1 H (0-1.0) k/uL Eosinophils # 0.2 (0-0.7) k/uL Basophils # 0.1 (0-0.2) k/uL PT 19.4 H (9.0-12.0) sec INR 1.9 H (<1.2) APTT 33.1 H (22.0-30.0) sec Sodium 138 (137-145) mmol/L Potassium 3.9 (3.5-5.1) mmol/L Chloride 103 (98-107) mmol/L Carbon Dioxide 29 (22-30) mmol/L Anion Gap 6 mmol/L BUN 20 (9-20) mg/dL Creatinine 0.90 (0.66-1.25) mg/dL Est GFR (CKD-EPI)AfAm >90 (>60 ml/min/1.73 sqM) Est GFR (CKD-EPI)NonAf 80 (>60 ml/min/1.73 sqM) Glucose 117 H (74-99) mg/dL Plasma Lactic Acid Sacha (0.7-2.0) mmol/L Calcium 8.7 (8.4-10.2) mg/dL Magnesium 1.8 (1.6-2.3) mg/dL Total Bilirubin 1.9 H (0.2-1.3) mg/dL AST 19 (17-59) U/L ALT 12 (4-49) U/L Alkaline Phosphatase 95 (38-126) U/L Ammonia (<30) umol/L Troponin I (0.000-0.034) ng/mL Total Protein 7.1 (6.3-8.2) g/dL Albumin 3.7 (3.5-5.0) g/dL Lipase 52 (23-300) U/L Urine Color Urine Appearance (Clear) Urine pH (5.0-8.0) Ur Specific [place] (1.001-1.035) Urine Protein (Negative) Urine Glucose (UA) (Negative) Urine Ketones (Negative) Urine Blood (Negative) Urine Nitrite (Negative) Urine Bilirubin (Negative) Urine Urobilinogen (<2.0) mg/dL Ur Leukocyte Esterase (Negative) Urine RBC (0-5) /hpf Urine WBC (0-5) /hpf Hyaline Casts (0-2) /lpf Urine Mucus (None) /hpf Urine Opiates Screen (NotDetected) Ur Oxycodone Screen (NotDetected) Urine Methadone Screen (NotDetected) Ur Propoxyphene Screen (NotDetected) Ur Barbiturates Screen (NotDetected) U Tricyclic Antidepress (NotDetected) Ur Phencyclidine Scrn (NotDetected) Ur Amphetamines Screen (NotDetected) U Methamphetamines Scrn (NotDetected) U Benzodiazepines Scrn (NotDetected) Urine Cocaine Screen (NotDetected) U Marijuana (THC) Screen (NotDetected) 10/19/21 10/19/21 10/19/21 Range/Units 09:20 09:20 13:39 WBC (3.8-10.6) k/uL RBC (4.30-5.90) m/uL Hgb (13.0-17.5) gm/dL Hct (39.0-53.0) % MCV (80.0-100.0) fL MCH (25.0-35.0) pg MCHC (31.0-37.0) g/dL RDW (11.5-15.5) % Plt Count (150-450) k/uL MPV Neutrophils % % Lymphocytes % % Monocytes % % Eosinophils % % Basophils % % Neutrophils # (1.3-7.7) k/uL Lymphocytes # (1.0-4.8) k/uL Monocytes # (0-1.0) k/uL Eosinophils # (0-0.7) k/uL Basophils # (0-0.2) k/uL PT (9.0-12.0) sec INR (<1.2) APTT (22.0-30.0) sec Sodium (137-145) mmol/L Potassium (3.5-5.1) mmol/L Chloride (98-107) mmol/L Carbon Dioxide (22-30) mmol/L Anion Gap mmol/L BUN (9-20) mg/dL Creatinine (0.66-1.25) mg/dL Est GFR (CKD-EPI)AfAm (>60 ml/min/1.73 sqM) Est GFR (CKD-EPI)NonAf (>60 ml/min/1.73 sqM) Glucose (74-99) mg/dL Plasma Lactic Acid Sacha 1.1 (0.7-2.0) mmol/L Calcium (8.4-10.2) mg/dL Magnesium (1.6-2.3) mg/dL Total Bilirubin (0.2-1.3) mg/dL AST (17-59) U/L ALT (4-49) U/L Alkaline Phosphatase (38-126) U/L Ammonia <9 (<30) umol/L Troponin I <0.012 (0.000-0.034) ng/mL Total Protein (6.3-8.2) g/dL Albumin (3.5-5.0) g/dL Lipase (23-300) U/L Urine Color Yellow Urine Appearance Clear (Clear) Urine pH 6.0 (5.0-8.0) Ur Specific [place] 1.014 (1.001-1.035) Urine Protein Negative (Negative) Urine Glucose (UA) Negative (Negative) Urine Ketones Negative (Negative) Urine Blood Large H (Negative) Urine Nitrite Negative (Negative) Urine Bilirubin Negative (Negative) Urine Urobilinogen <2.0 (<2.0) mg/dL Ur Leukocyte Esterase Negative (Negative) Urine RBC 73 H (0-5) /hpf Urine WBC <1 (0-5) /hpf Hyaline Casts 1 (0-2) /lpf Urine Mucus Rare H (None) /hpf Urine Opiates Screen Not Detected (NotDetected) Ur Oxycodone Screen Not Detected (NotDetected) Urine Methadone Screen Not Detected (NotDetected) Ur Propoxyphene Screen Not Detected (NotDetected) Ur Barbiturates Screen Not Detected (NotDetected) U Tricyclic Antidepress Not Detected (NotDetected) Ur Phencyclidine Scrn Not Detected (NotDetected) Ur Amphetamines Screen Not Detected (NotDetected) U Methamphetamines Scrn Not Detected (NotDetected) U Benzodiazepines Scrn Not Detected (NotDetected) Urine Cocaine Screen Not Detected (NotDetected) U Marijuana (THC) Screen Not Detected (NotDetected) - EKG Data -: EKG Interpreted by Me EKG Comments: Atrial fibrillation rate 77 QRS 86 QT since QTC 380/412 left exodeviation PVCs - Radiology Data Radiology results: report reviewed (Imaging reviewed no evidence of acute processes.), image reviewed Critical Care Time Critical Care Time: Yes Total Critical Care Time: 31 Critical Care Time: Critical care time including initial presentation with history physical labs x- rays multiple reevaluation the patient discussed with patient family discuss with the admitting physician. Consult admission orders documentation the above Disposition Clinical Impression: Delirium due to general medical condition, Transient ischemic attack, Dehydration, Urinary retention Disposition: ADMITTED IP TO THIS [facility] Condition: Fair Referrals: Johnathan Bustillos MD [Primary Care Provider] - 1-2 days Decision Date: 10/19/21 Decision Time: 14:00
[2021-10-19 09:46] LABS: ALT 12 U/L (4-49); AST 19 U/L (17-59); African American GFR (CKD) >90 (>60 ml/min/1.73 sqM); Albumin 3.7 g/dL (3.5-5.0); Alkaline Phosphatase 95 U/L (38-126); Anion Gap 6 mmol/L; Blood Urea Nitrogen 20 mg/dL (9-20); Calcium 8.7 mg/dL (8.4-10.2); Carbon Dioxide 29 mmol/L (22-30); Chloride 103 mmol/L (98-107); Glucose 117 mg/dL (74-99); Lipase 52 U/L (23-300); Magnesium 1.8 mg/dL (1.6-2.3); Non-African American GFR(CKD) 80 (>60 ml/min/1.73 sqM); Potassium 3.9 mmol/L (3.5-5.1); Sodium 138 mmol/L (137-145); Total Bilirubin 1.9 mg/dL (0.2-1.3); Total Protein 7.1 g/dL (6.3-8.2)
[2021-10-19 09:55] LABS: Basophils # (A) 0.1 k/uL (0-0.2); Basophils % (A) 1 %; Eosinophils # (A) 0.2 k/uL (0-0.7); Eosinophils % (A) 1 %; HCT 37.6 % (39.0-53.0); HGB 12.3 gm/dL (13.0-17.5); Lymphocytes # (A) 1.7 k/uL (1.0-4.8); Lymphocytes % (A) 15 %; MCH 29.7 pg (25.0-35.0); MCHC 32.7 g/dL (31.0-37.0); MCV 90.9 fL (80.0-100.0); Mean Platelet Volume 8.2; Monocytes # (A) 1.1 k/uL (0-1.0); Monocytes % (A) 9 %; Neutrophils # (A) 8.1 k/uL (1.3-7.7); Neutrophils % (A) 71 %; Platelet Count 210 k/uL (150-450); RBC 4.14 m/uL (4.30-5.90); WBC 11.4 k/uL (3.8-10.6)
[2021-10-19 09:56] LABS: INR 1.9 (<1.2); Partial Thromboplastin Time 33.1 sec (22.0-30.0); Prothrombin Time 19.4 sec (9.0-12.0)
--- NOTE | 2021-10-19 09:57 | XR ---
EXAMINATION TYPE: XR chest 2V DATE OF EXAM: 10/19/2021 COMPARISON: July 19, 2021 HISTORY: Shortness of breath TECHNIQUE: Frontal and lateral views of the chest are obtained. FINDINGS: Scattered senescent parenchymal changes noted. Hyperinflation compatible with COPD. No evidence for infiltrate. No evidence for atelectasis. Heart size is stable. Mediastinal structures are stable and grossly unremarkable. No evidence for hilar prominence. Degenerative changes dorsal spine. IMPRESSION: 1. No evidence for acute pulmonary disease.
--- NOTE | 2021-10-19 10:06 | CT ---
EXAMINATION TYPE: CT brain wo con DATE OF EXAM: 10/19/2021 COMPARISON: CT dated 06/25/2021 HISTORY: Altered mental status CT DLP: 1041.4 mGycm Automated exposure control for dose reduction was used. TECHNIQUE: CT scan of the brain is performed without IV contrast administration. FINDINGS: Brain volume loss changes, likely age-related. Bilateral cerebral white matter hypodensities, likely representing chronic microvascular ischemic changes. Scattered arterial atherosclerotic calcification s. No acute intracranial hemorrhage. No gross acute cortical infarct. No midline shift, herniation or ve ntriculomegaly. Unremarkable basal cisterns, sella and CP angles. No gross space-occupying lesion, vasogenic edema or mass effect. Unremarkable orbits. Scalp soft tissue swelling, please correlate clinically. Clear visualized parana sudhir sinuses and mastoid air cells. Osteopenia. IMPRESSION: No acute intracranial abnormality or gross space-occupying lesion by this nonenhanced CT scan. Chroni c and incidental findings as described above.
[2021-10-19 10:10] LABS: Lactic Acid, Venous 1.1 mmol/L (0.7-2.0)
[2021-10-19 13:50] LABS: Appearance,Urine Clear (Clear); Bilirubin,Urine Negative (Negative); Blood,Urine Large (Negative); Color,Urine Yellow; Glucose,Urine (UA) Negative (Negative); Hyaline Casts,Urine 1 /lpf (0-2); Ketones,Urine Negative (Negative); Leukocyte Esterase,Urine Negative (Negative); Mucus,Urine Rare /hpf; Nitrite,Urine Negative (Negative); Protein,Urine Negative (Negative); RBC,Urine 73 /hpf (0-5); Specific Gravity,Urine 1.014 (1.001-1.035); Urobilinogen,Urine <2.0 mg/dL (<2.0); WBC,Urine <1 /hpf (0-5)
[2021-10-19 14:02] LABS: Amphetamine Screen,Urine Not Detected (NotDetected); Barbiturate Screen,Urine Not Detected (NotDetected); Benzodiazepines Screen,Urine Not Detected (NotDetected); Cocaine Screen,Urine Not Detected (NotDetected); Methadone Screen, Urine Not Detected (NotDetected); Opiate Screen,Urine Not Detected (NotDetected); Oxycodone Screen, Urine Not Detected (NotDetected); Phencyclidine Screen,Urine Not Detected (NotDetected); Tricyclic Antidepressant,Urine Not Detected (NotDetected); Urn Cannabinoid Scrn Not Detected (NotDetected)
[2021-10-19] MEDS ORDERED: MORPHINE ORAL SOLN 10 MG/5 ML CUP PO PRN (14:35)
[2021-10-19] MEDS ORDERED: ACETAMINOPHEN TAB 325 MG TAB PO PRN (14:35)
[2021-10-19] MEDS ORDERED: SENNOSIDES-DOCUSATE SODIUM 1 EACH TAB PO PRN (14:35)
[2021-10-19] MEDS ORDERED: IPRATROPIUM-ALBUTEROL 3 ML NEB INHALATION PRN (14:35)
[2021-10-19] MEDS ORDERED: ALBUTEROL NEBULIZED 2.5 MG/3 ML INHALATION PRN (14:35)
[2021-10-19] MEDS: SODIUM CHLORIDE 0.9% 1,000 ML IV SCH (16:30)
[2021-10-19] MEDS ORDERED: WARFARIN 3 MG TAB PO ONE (17:00)
--- NOTE | 2021-10-19 17:15 | P.CNNES ---
History of Present Illness Consult date: 10/19/21 Requesting physician: Surinder Martin Reason for Consult: stroke/TIA History of Present Illness: This is an 81-year-old gentleman past medical history of atrial fibrillation on Coumadin, hypertension, COPD, hyperlipidemia who presented to the emergency department on the 10/19/2020 for decreased responsiveness. Some of the history is obtained from patient's daughter who is at bedside and medical records. Patient's baseline is he is awake alert oriented 4. It seems that around 8 AM today the patient has been less responsive and that appeared he had left-sided weakness per ED note. When the EMS brought the patient to our facility it seems that the patient the, took a swing at one of the medics per the ED note and was not following commands. According to the patient's daughter patient has been in [facility] for past one year and told was notified he was confused but was not notified about weakness. She stated that patient has episode of confusion every couple months and stares off but denies any eye fixation towards one side, jerking of extremities, urinary or bowel incontinence. His confusion can lasts for 30 minutes. He does not have history of seizures but with these confusion when comes to hospital he is told TIA. He does have a son and grand-child with history of seizure at young age. Patient's daughter feels his mentation is slowly improving currently. Some other workup in the hospital consisted of: Initial vital signs is a blood pressure of 127/69, heart rate of 83, rest of 16, temperature of 98.7 Fahrenheit oral and pulse ox of 93% room air. Initial white blood cells 11.4 and is slightly neutrophilic. INR is 1.9. Serum chemistry was reviewed and seems unremarkable. Ammonia level is less than 9 Urine toxicology screen is nondetected CT of the head is reported as no acute intracranial abnormality gross space occupying lesion by this on has computed tomography scan. Chronic and incidental finding as described. I personally reviewed the CT of the head and there is no acute subacute ischemia. Per the ED team patient has no focal deficit. No IV TPA since the patient is on anticoagulation and the risk away the benefit as well as the patient's symptoms resolved. Of note the patient was seen in our facility on June 2021 for transient unresponsiveness and expressive aphasia and patient the head subtherapeutic INR and it was concerning the patient TIA versus seizure (seizure was low on differential). Recommended MRI Brain but does not seem patient had it. Please refer to our neurological notes for further details. Review of Systems Review of system is limited but the Prempro is negative as per HPI Past Medical History Past Medical History: Atrial Fibrillation, Cancer, Heart Failure, COPD, Dem entia, GERD/Reflux, Hyperlipidemia, Hypertension, Pneumonia, Prostate Disorder Additional Past Medical History / Comment(s): Pt recently admitted to [facility] on 06/28/21 with expressive dysphasia, possible acute TIA or acute stroke. Other hx: Chronic cervical pain with radiculopathy/numbness and tingling R arm/hand, chronic back pain with numbness/tingling bilateral legs, bilateral leg varicosities, kidney stone/surgically removed, BPH, insomnia, weakness, vitamin D deficiency. 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 Past Anesthesia/Blood Transfusion Reactions: No Reported Reaction Past Psychological History: No Psychological Hx Reported Smoking Status: Former smoker Past Alcohol Use History: Unable to Obtain Past Drug Use History: Unable to Obtain - Past Family History Father Additional Family Medical History / Comment(s): Father was a drinker. He at the age of 80yrs. Mother Family Medical History: No Reported History Additional Family Medical History / Comment(s): Mother was healthy and lived to b90yrs old. Daughter(s) Family Medical History: Cancer Additional Family Medical History / Comment(s): Nely had breast cancer. Brother(s) Family Medical History: Cancer Additional Family Medical History / Comment(s): Brother had melanoma skin cancer. Sister(s) Family Medical History: Cancer Additional Family Medical History / Comment(s): Sister had melanoma skin cancer. Medications and Allergies Home Medications Medication Instructions Recorded Confirmed Type Diltiazem HCl [Diltiazem HCl 24Hr 120 mg PO DAILY@0900 04/04/18 10/19/21 History ER (CD)] Acetaminophen Tab [Tylenol] 650 mg PO Q6HR PRN tab 07/07/20 10/19/21 Rx Albuterol Inhaler [Ventolin Hfa 1 puff INHALATION RT-Q4H PRN 08/26/20 10/19/21 History Inhaler] Tamsulosin [Flomax] 0.4 mg PO HS@2100 08/26/20 10/19/21 History Ipratropium-Albuterol Nebulize 3 ml INHALATION RT-Q4H PRN 06/08/21 10/19/21 History [Duoneb 0.5 mg-3 mg/3 ml Soln] Metoprolol Tartrate [Lopressor] 25 mg PO BID@0900,2100 06/08/21 10/19/21 History Furosemide [Lasix] 20 mg PO DAILY@0600 06/25/21 10/19/21 History Pantoprazole [Protonix] 40 mg PO DAILY@0600 06/25/21 10/19/21 History Aspirin 81 mg PO DAILY tab 06/28/21 10/19/21 Rx Atorvastatin [Lipitor] 20 mg PO HS tab 06/28/21 10/19/21 Rx Budesonide-Formot 160-4.5 Mcg 2 puff INHALATION RT-BID gm 07/21/21 10/19/21 Rx [Symbicort 160-4.5 Mcg Inhaler] MORPHINE ORAL MARK CONC 20mg/mL 5 mg PO Q3H PRN 10/19/21 10/19/21 History [Roxanol Oral Soln Conc 20MG/ML] Sennosides/Docusate Sodium [Senna 2 tab PO Q3D PRN 10/19/21 10/19/21 History Plus 8.6-50 mg Tablet] Warfarin [Coumadin] 5 mg PO DAILY@1700 10/19/21 10/19/21 History Allergies Allergy/AdvReac Type Severity Reaction Status Date / Time No Known Allergies Allergy Verified 10/19/21 09:39 Physical Examination - Vital Signs Vital Signs: Vital Signs Temp Pulse Resp BP Pulse Ox 10/19/21 12:19 82 20 120/77 98 10/19/21 11:02 75 16 118/74 99 10/19/21 09:00 98.7 F 83 16 127/69 93 L Intake and Output 10/19/21 10/19/21 10/19/21 06:59 14:59 22:59 Output Total 800 Balance -800 Output: Urine 800 Uretheral (Brady) 800 Other: Weight 81.647 kg GENERAL: The patient is lying in bed and is not in acute distress. HENT: Supple neck. CHEST: The heart rate is regular rate rhythm. No murmurs to auscultation. LUNG: Clear to auscultation bilaterally no wheezing noted throughout. Not labored breathing. ABDOMEN/GI: Bowel sounds present in all 4 quadrants. No tenderness to palpation throughout. NEUROLOGICAL: Higher mental function: The patient is awake, oriented to self. He stated he is in the hospital but stated over at [place]. He does not know year or month. He states he is in [place]. Patient is following simple commands. No aphasia and no neglect from limited examination. Cranial nerves: The pupils are round, equal and reactive to light. Visual hankins are full to confrontation throughout. Extraocular movement is intact no nystagmus is noted. Facial sensation is normal to touch throughout. The facial strength is normal throughout. Hearing is moderately bilaterally to hand rub. Tongue is midline and moved [id number] without any difficulty. No dysarthria is noted. Shoulder shrug is normal bilaterally. Motor: The strength is 5 over 5 throughout uppers and raising lowers above gravity without drift. Normal tone and bulk. Cerebellum: Normal finger to nose bilaterally. Sensation: Sensation is normal to touch throughout. Reflexes (right/left):1+ throughout. Plantars are downgoing bilaterally. Results - Laboratory Findings CBC and BMP: 10/19/21 09:20 10/19/21 09:20 Abnormal Lab Findings: Abnormal Labs 10/19/21 10/19/21 10/19/21 09:20 09:20 09:20 WBC 11.4 H RBC 4.14 L Hgb 12.3 L Hct 37.6 L Neutrophils # 8.1 H Monocytes # 1.1 H PT 19.4 H INR 1.9 H APTT 33.1 H Glucose 117 H Total Bilirubin 1.9 H Urine Blood Urine RBC Urine Mucus 10/19/21 13:39 WBC RBC Hgb Hct Neutrophils # Monocytes # PT INR APTT Glucose Total Bilirubin Urine Blood Large H Urine RBC 73 H Urine Mucus Rare H Assessment and Plan Assessment: Encephalopathy of unknown etiology. Rule out seizure (especially since patient has repeated episodes every few months lasting 30 minutes but according to daughter no jerking, eye fixation. He does have son and grand-child with hx of seizure at young age Reported transient left sided weakness that's reported rule out stroke especially with a history of atrial fibrillation and slight subtherapeutic INR (I feel stroke is unlikely) Atrial fibrillation on Coumadin and the INR is slightly subtherapeutic History of hypertension COPD Hyperlipidemia. Plan: I ordered a routine EEG. I'll not start the patient on antiepileptic drug unless there is a epileptiform discharges or seizure on the EEG. Recommend prolonged EEG as outpatient since patient having repeated episode of confusion to see if any seizure activity is picked up during these episodes. Ordered MRI of the brain with and without On Coumadin and was restarted on aspirin 81 mg and that his home medication of Lipitor 20 mg daily at bedtime. Ordered carotid duplex, 2-D echo, TSH, vitamin B12, folate. Lipid panels ordered by the ED team is pending PT OT and [employer] SHAR[employer] SERVICES CONSULTANT are consulted Continue neuro checks Placed on cardiac monitoring We'll defer the rest of the medical management to the primary team Recommend the patient to follow-up with neurologist as outpatient within 1-2 weeks. The plan is discussed with the patient's duaghter who is at bedside. Thank you consultation. Mart Gaston M.D. Neuro-hospitalist Time with Patient: Greater than 30
[2021-10-19] MEDS: METOPROLOL TARTRATE 25 MG TAB PO SCH (20:40)
[2021-10-19] MEDS: TAMSULOSIN 0.4 MG CAP.ER.24H PO SCH (20:40)
[2021-10-19] MEDS: ATORVASTATIN 20 MG TAB PO SCH (20:40)
[2021-10-19] MEDS: SYMBICORT 160-4.5 MCG INHALER INHALATION SCH ×2 (21:06→21:07)
[2021-10-20] MEDS: SODIUM CHLORIDE 0.9% 1,000 ML IV SCH ×3 (02:42→17:41)
[2021-10-20] MEDS: FUROSEMIDE 20 MG TAB PO SCH (05:52)
[2021-10-20] MEDS: PANTOPRAZOLE 40 MG TABLET PO SCH (05:52)
[2021-10-20] MEDS: SYMBICORT 160-4.5 MCG INHALER INHALATION SCH ×2 (08:18→19:58)
[2021-10-20 08:31] LABS: Basophils # (A) 0.1 k/uL (0-0.2); Basophils % (A) 1 %; Eosinophils # (A) 0.3 k/uL (0-0.7); Eosinophils % (A) 3 %; HCT 37.9 % (39.0-53.0); HGB 12.3 gm/dL (13.0-17.5); Lymphocytes # (A) 1.6 k/uL (1.0-4.8); Lymphocytes % (A) 17 %; MCH 29.4 pg (25.0-35.0); MCHC 32.3 g/dL (31.0-37.0); MCV 90.9 fL (80.0-100.0); Monocytes # (A) 0.7 k/uL (0-1.0); Monocytes % (A) 8 %; Neutrophils # (A) 6.1 k/uL (1.3-7.7); Neutrophils % (A) 68 %; Platelet Count 218 k/uL (150-450); RBC 4.17 m/uL (4.30-5.90); RDW 13.9 % (11.5-15.5); WBC 8.9 k/uL (3.8-10.6)
[2021-10-20 08:32] LABS: INR 2.2 (<1.2); Prothrombin Time 21.6 sec (9.0-12.0)
[2021-10-20 08:49] LABS: African American GFR (CKD) >90 (>60 ml/min/1.73 sqM); Anion Gap 6 mmol/L; Blood Urea Nitrogen 21 mg/dL (9-20); Calcium 8.2 mg/dL (8.4-10.2); Carbon Dioxide 27 mmol/L (22-30); Chloride 105 mmol/L (98-107); Glucose 94 mg/dL (74-99); Non-African American GFR(CKD) 81 (>60 ml/min/1.73 sqM); Potassium 3.8 mmol/L (3.5-5.1); Sodium 138 mmol/L (137-145)
--- NOTE | 2021-10-20 09:16 | P.HPIM ---
History of Present Illness Patient initially was admitted under sound service team as per ED notes from 10/19/2021@14:25, pending service switched to our team. This is a pleasant 81 male with past medical history of Atrial Fibrillation, Cancer, Heart Failure, COPD, Dementia, GERD/Reflux, Hyperlipidemia, Hypertension, benign prostatic hypertrophy, Pt recently admitted to [facility] on 06/28/21 with expressive dysphasia, possible acute TIA or acute stroke, Chronic cervical pain with radiculopathy/numbness and tingling R arm/hand, chronic back pain with numbness/tingling bilateral legs, bilateral leg varicosities, kidney stone/surgically removed, , is status post Ablation, EPS Patient was sent from [facility] for altered mental status Also on admission has dehydration and urinary retention as per ED notes This morning patient was lying in bed, fully awake and oriented, he couldn't tell me he is in the hospital, however he thought this 2001 and he could not t ell the month, he could not remember the name of the president but said he is deemed correct and the patient himself is edema, as he states. He does not know why he is in the hospital area he denies any pain and he does not know why he was taken morphine. He says he has been an ECF for 6 month. He denies chest pain or dyspnea. No abdominal pain or vomiting or diarrhea. No urinary complaints or urgency or change in frequency, no fever, no headache or numbness or weakness. He denies smoking, alcohol or illicit tracts Patient blood pressure was but to allow overnight 88/80, currently 105/57. Patient is afebrile. Showing mild leukocytosis of 11.4, hemoglobin 12.3. INR 1.9. BMP and liver e nzymes are unremarkable. Vitamin B12 393, folate 18.2, TSH normal at 1.7. Ammonia less than 9. Troponin is negative. CT of the brain: No acute process Chest x-ray: No acute process. EKG: Atrial fibrillation at [address]-T changes Urine analysis showing large blood. Urine drug screen is negative. Review of Systems CONSTITUTIONAL: No fever, no malaise, no fatigue. HEENT: No recent visual problems or hearing problems. Denied any sore throat. CARDIOVASCULAR: No orthopnea, PND, no palpitations, no syncope. PULMONARY: No shortness of breath, no cough, no hemoptysis. GASTROINTESTINAL: No diarrhea, no nausea, no vomiting, no abdominal pain. N ormoactive bowel sounds. NEUROLOGICAL: No headaches, no weakness, no numbness. HEMATOLOGICAL: Denies any bleeding or petechiae. GENITOURINARY: Denies any burning micturition, frequency, or urgency. MUSCULOSKELETAL/RHEUMATOLOGICAL: Denies any joint pain, swelling, or any muscle pain. ENDOCRINE: Denies any polyuria or polydipsia. Past Medical History Past Medical History: Atrial Fibrillation, Cancer, Heart Failure, COPD, Dementia, GERD/Reflux, Hyperlipidemia, Hypertension, Pneumonia, Prostate Disorder Additional Past Medical History / Comment(s): Pt recently admitted to [facility] on 06/28/21 with expressive dysphasia, possible acute TIA or acute stroke. Other hx: Chronic cervical pain with radiculopathy/numbness and tingling R arm/hand, chronic back pain with numbness/tingling bilateral legs, bilateral leg varicosities, kidney stone/surgically removed, BPH, insomnia, weakness, vitamin D deficiency. 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 Past Anesthesia/Blood Transfusion Reactions: No Reported Reaction Past Psychological History: No Psychological Hx Reported Smoking Status: Former smoker Past Alcohol Use History: Unable to Obtain Past Drug Use History: Unable to Obtain - Past Family History Father Additional Family Medical History / Comment(s): Father was a drinker. He at the age of 80yrs. Mother Family Medical History: No Reported History Additional Family Medical History / Comment(s): Mother was healthy and lived to b90yrs old. Daughter(s) Family Medical History: Cancer Additional Family Medical History / Comment(s): Nely had breast cancer. Brother(s) Family Medical History: Cancer Additional Family Medical History / Comment(s): Brother had melanoma skin cancer. Sister(s) Family Medical History: Cancer Additional Family Medical History / Comment(s): Sister had melanoma skin cancer. Medications and Allergies Home Medications Medication Instructions Recorded Confirmed Type Diltiazem HCl [Diltiazem HCl 24Hr 120 mg PO DAILY@0900 04/04/18 10/19/21 History ER (CD)] Acetaminophen Tab [Tylenol] 650 mg PO Q6HR PRN tab 07/07/20 10/19/21 Rx Albuterol Inhaler [Ventolin Hfa 1 puff INHALATION RT-Q4H PRN 08/26/20 10/19/21 History Inhaler] Tamsulosin [Flomax] 0.4 mg PO HS@209908/26/20 10/19/21 History Ipratropium-Albuterol Nebulize 3 ml INHALATION RT-Q4H PRN 06/08/21 10/19/21 History [Duoneb 0.5 mg-3 mg/3 ml Soln] Metoprolol Tartrate [Lopressor] 25 mg PO BID@0900,209906/08/21 10/19/21 History Furosemide [Lasix] 20 mg PO DAILY@0600 06/25/21 10/19/21 History Pantoprazole [Protonix] 40 mg PO DAILY@0606/25/21 10/19/21 History Aspirin 81 mg PO DAILY tab 06/28/21 10/19/21 Rx Atorvastatin [Lipitor] 20 mg PO HS tab 06/28/21 10/19/21 Rx Budesonide-Formot 160-4.5 Mcg 2 puff INHALATION RT-BID gm 07/21/21 10/19/21 Rx [Symbicort 160-4.5 Mcg Inhaler] MORPHINE ORAL MARK CONC 20mg/mL 5 mg PO Q3H PRN 10/19/21 10/19/21 History [Roxanol Oral Soln Conc 20MG/ML] Sennosides/Docusate Sodium [Senna 2 tab PO Q3D PRN 10/19/21 10/19/21 History Plus 8.6-50 mg Tablet] Warfarin [Coumadin] 5 mg PO DAILY@1700 10/19/21 10/19/21 History Allergies Allergy/AdvReac Type Severity Reaction Status Date / Time No Known Allergies Allergy Verified 10/19/21 09:39 Physical Exam Vitals: Vital Signs Temp Pulse Pulse Resp BP BP Pulse Ox 10/20/21 04:25 108/57 10/20/21 03:49 98.8 F 69 12 88/50 99 10/20/21 00:00 98.3 F 93 14 129/77 93 L 10/19/21 20:00 98.1 F 83 16 138/79 94 L 10/19/21 18:05 98.4 F 95 141/64 95 10/19/21 17:22 70 14 132/79 10/19/21 15:00 74 20 132/77 98 10/19/21 13:00 72 18 130/80 99 10/19/21 12:19 82 20 120/77 98 10/19/21 11:02 75 16 118/74 99 10/19/21 09:00 98.7 F 83 16 127/69 93 L Intake and Output 10/19/21 10/19/21 10/20/21 14:59 22:59 06:59 Output Total 800 150 220 Balance -800 -150 -220 Output: Urine 800 150 220 Uretheral (Brady) 800 150 120 Other: Voiding Method Indwelling Catheter Indwelling Catheter # Bowel Movements 0 Weight 81.647 kg 81.647 kg -GENERAL: The patient is alert and oriented x3, not in any acute distress. Well developed, well nourished. Generally weak HEENT: Pupils are round and equally reacting to light. EOMI. No scleral icterus. No conjunctival pallor. Normocephalic, atraumatic. No pharyngeal erythema. No thyromegaly. CARDIOVASCULAR: S1 and S2 present. No murmurs, rubs, or gallops. PULMONARY: Chest is clear to auscultation, no wheezing or crackles. -ABDOMEN: Soft, nontender, nondistended, normoactive bowel sounds. No palpable organomegaly. Brady catheter in place MUSCULOSKELETAL: No joint swelling or deformity. EXTREMITIES: No cyanosis, clubbing, or pedal edema. NEUROLOGICAL: Gross neurological examination did not reveal any focal deficits. SKIN: No rashes. No petechiae Results CBC & Chem 7: 10/20/21 08:04 10/20/21 08:04 Labs: Abnormal Lab Results - Last 24 Hours (Table) 10/19/21 10/19/21 10/19/21 Range/Units 09:20 09:20 09:20 WBC 11.4 H (3.8-10.6) k/uL RBC 4.14 L (4.30-5.90) m/uL Hgb 12.3 L (13.0-17.5) gm/dL Hct 37.6 L (39.0-53.0) % Neutrophils # 8.1 H (1.3-7.7) k/uL Monocytes # 1.1 H (0-1.0) k/uL PT 19.4 H (9.0-12.0) sec INR 1.9 H (<1.2) APTT 33.1 H (22.0-30.0) sec Glucose 117 H (74-99) mg/dL Total Bilirubin 1.9 H (0.2-1.3) mg/dL Urine Blood (Negative) Urine RBC (0-5) /hpf Urine Mucus (None) /hpf 10/19/21 Range/Units 13:39 WBC (3.8-10.6) k/uL RBC (4.30-5.90) m/uL Hgb (13.0-17.5) gm/dL Hct (39.0-53.0) % Neutrophils # (1.3-7.7) k/uL Monocytes # (0-1.0) k/uL PT (9.0-12.0) sec INR (<1.2) APTT (22.0-30.0) sec Glucose (74-99) mg/dL Total Bilirubin (0.2-1.3) mg/dL Urine Blood Large H (Negative) Urine RBC 73 H (0-5) /hpf Urine Mucus Rare H (None) /hpf Thrombosis Risk Factor Assmnt - Choose All That Apply Any of the Below Risk Factors Present?: Yes Other Risk Factors: Yes Each Risk Factor Represents 2 Points: Malignancy Each Risk Factor Represents 3 Points: Age 75 years or older Other congenital or acquired thrombophilia - If yes, enter type in comment: No Thrombosis Risk Factor Assessment Total Risk Factor Score: 5 Thrombosis Risk Factor Assessment Level: High Risk Assessment and Plan Assessment: Altered mental status, rule out intracranial causes, rule out seizure . Possible metabolic/toxic encephalopathy urinary retention with hematuria, could be traumatic from Brady catheter patient Chronic atrial fibrillation on warfarin, status post previous Ablation dementia Hyperlipidemia Hypertension COPD, no acute exacerbation Chronic heart failure, no acute exacerbation Benign prostatic hypertrophy History of TIA and aphasia Chronic cervical pain with radiculopathy/numbness and tingling R arm/hand chronic back pain with numbness/tingling bilateral legs Plan: This is a pleasant 81 male who presents with TIA Continue with aspirin, continue with warfarin, pharmacy to dose Neuro check Neurology consult follow-up carotid duplex, echocardiogram , MRI of the brain, EEG Discontinue morphine We will check renal ultrasound Labs and medication were reviewed.. Continue same treatment. Continue with symptomatic treatment. Resume home medication. Monitor lytes and vitals. DVT and GI prophylaxis. Further recommendations depends on the clinical course of the patient DVT prophylaxisOn Coumadin GI Prophylaxis: Ppi Prognosis is guarded
[2021-10-20] MEDS: DEXTROSE 5%-0.9% NACL 1,000 ML IV SCH ×2 (10:04→21:34)
[2021-10-20] MEDS: CYANOCOBALAMIN 500 MCG TAB PO SCH (10:05)
[2021-10-20] MEDS: METOPROLOL TARTRATE 25 MG TAB PO SCH ×2 (10:06→20:07)
[2021-10-20] MEDS: DILTIAZEM CD 120 MG CAP.ER.24H PO SCH (10:06)
[2021-10-20] MEDS: ASPIRIN 81 MG PO SCH (10:06)
--- NOTE | 2021-10-20 11:27 | CA ---
Transthoracic Echo Report Name: Georges Rockwell Age: 81 Gender: M : 1940 Exam Date: 10/20/2021 07:36 Exam Location: [facility] Ht (in): 71 Wt (lb): 180 Ordering Physician: Mart Gaston MD Attending/Referring Phys: Bilingual Nanny Megan Aguilar RDCS Procedure CPT: Indications: limited for stroke Cardiac Hx: Technical Quality: Technically difficult study Contrast 1: Lumason Total Dose (mL): 1 Contrast 2: Total Dose (mL): MEASUREMENTS (Male / Female) Normal Values 2D ECHO LV Diastolic Diameter PLAX 3.2 cm 4.2 - 5.9 / 3.9 - 5.3 cm LV Systolic Diameter PLAX 1.6 cm IVS Diastolic Thickness 1.2 cm 0.6 - 1.0 / 0.6 - 0.9 cm LVPW Diastolic Thickness 1.3 cm 0.6 - 1.0 / 0.6 - 0.9 cm LV Relative Wall Thickness 0.8 M-MODE Aortic Root Diameter MM 3.8 cm LA Systolic Diameter MM 3.3 cm LA Ao Ratio MM 0.9 AV Cusp Separation MM 1.4 cm DOPPLER AV Peak Velocity 145.6 cm/s AV Peak Gradient 8.5 mmHg FINDINGS Left Ventricle Mildly increased septal wall thickness. Left ventricular ejection fraction is estimated at 55-60__ %. Right Ventricle Right Atrium Left Atrium Mitral Valve Aortic Valve Tricuspid Valve Pulmonic Valve Pericardium No pericardial effusion. Aorta CONCLUSIONS This a technically suboptimal and incomplete study LV function appears normal Previewed by: Dr. Tushar Hernandez MD (Electronically Signed) Final Date: 20 Oct 2021 11:26
--- NOTE | 2021-10-20 13:22 | US ---
EXAMINATION TYPE: US carotid duplex BILAT DATE OF EXAM: 10/20/2021 COMPARISON: NONE CLINICAL HISTORY: 81-year-old male stroke. TIA, altered mental status TECHNIQUE: Carotid duplex ultrasound examination. Indirect Doppler criteria was utilized. FINDINGS: EXAM MEASUREMENTS: RIGHT: Peak Systolic Velocity (PSV) cm/sec ----- Right CCA: 53.3 ----- Right ICA: 115.1 ----- Right ECA: 127.4 ICA/CCA ratio: 2.2 RIGHT: End Diastole cm/sec ----- Right CCA: 12.0 ----- Right ICA: 28.3 ----- Right ECA: 7.9 LEFT: Peak Systolic Velocity (PSV) cm/sec ----- Left CCA: 95.6 ----- Left ICA: 87.8 ----- Left ECA: 103.4 ICA/CCA ratio: 0.9 LEFT: End Diastole cm/sec ----- Left CCA: 14.1 ----- Left ICA: 17.5 ----- Left ECA: 11.5 VERTEBRALS (direction of flow): Right Vertebral: Antegrade Left Vertebral: Antegrade Examination Supervisor notes: moderate plaque bilateral bifurcations. No evidence of increased velocities wit hin the ICAs. IMPRESSION: Moderate atherosclerotic change at the bifurcations but without any hemodynamically significant inter nal carotid artery stenosis on either side. Criteria for Assigning % of Stenosis / Diameter reduction (Estimation based on the indirect measurements of the internal carotid artery velocities (ICA PSV). 1. Normal (no stenosis)=ICA PSV < 125 cm/s: ratio < 2.0: ICA EDV<40 cm/s. 2. Less than 50% stenosis=ICA PSV < 125 cm/s: ratio < 2.0: ICA EDV<40 cm/s. 3. 50 to 69% stenosis=ICA PSV of 125 to 230 cm/s: ration 2.0 ? 4.0: ICA EDV 40-100 cm/s. 4. Greater than 70% stenosis to near occlusion= ICA PSV > 230 cm/s: ratio > 4.0: ICA EDV > 100 cm/s. 5. Near occlusion= ICA PSV velocities may be low or undetectable: variable ratio and ICA EDV. 6. Total occlusion=unable to detect flow.
--- NOTE | 2021-10-20 14:02 | CDI ---
Documentation Clarification Form Date: 10/20/2021 01:40:48 PM From: Evelyne Nolen RN, CCDS Admit Date: 10/19/2021 02:44:00 PM Patient Name: Georges Rockwell Visit Number: [id number] Discharge Date: ATTENTION: The Clinical Documentation Specialists (CDI) and [facility] Coding Staff appreciate your assistance in clarifying documentation. Please respond to the clarification below the line at the bottom and electronically sign. The CDI & [facility] Coding staff will review the response and follow-up if needed. Please note: Queries are made part of the Legal Health Record. If you have any questions, please contact the author of this message via ITS. Dr. Solorio E Sheet Your patient has the documented diagnosis of unspecified chronic CHF in the H/P ON 10/20/21. Additional information regarding the type of CHF is requested. History/Risk Factors: TIA, Hypertension, COPD, CHF Clinical Indicators: 81-year-old male present with altered mental status, minimal pupillary response and left-sided weakness. His past history of congestive heart failure 10/19 VS/Pulse OX: 127/69 83 16 98.7 93 % 10/20 Echocardiogram Results: Mild increased septal wall thickness Left ventricular EF is estimated at 55-60 % .Suboptimal and incomplete study.LV function appears normal. 10/19 Chest X Ray: No evidence for acute pulmonary disease Treatment: Cardiac/Telemetry monitoring Lasix 20 MG PO Daily Cardizem Cd 120MG PO Daily, Lopressor 25 MG PO BID In your professional opinion, can you please clarify the type of CHF if known? [ ] Chronic Systolic Heart Failure (reduced EF) [ ] Chronic Diastolic Heart Failure (preserved EF) [ ] Chronic Systolic & Diastolic Heart Failure [ ] Other, please specify [ ] Unable to determine (Template Last Revised: July 2020) pt mentioned in his history has chronic heart failure ( it is possible) not sure, if he has chf then it is chronic per ef of 55-60% MTDD
[2021-10-20 14:06] LABS: Appearance,Urine Cloudy (Clear); Bacteria,Urine Rare /hpf; Bilirubin,Urine Negative (Negative); Blood,Urine Large (Negative); Color,Urine Yellow; Glucose,Urine (UA) Negative (Negative); Ketones,Urine Negative (Negative); Leukocyte Esterase,Urine Large (Negative); Mucus,Urine Few /hpf; Nitrite,Urine Negative (Negative); Protein,Urine 1+ (Negative); RBC,Urine 174 /hpf (0-5); Specific Gravity,Urine 1.016 (1.001-1.035); Squamous Epithelial Cell,Urine <1 /hpf (0-4); Urobilinogen,Urine <2.0 mg/dL (<2.0); WBC,Urine 53 /hpf (0-5)
[2021-10-20 14:51] LABS: Chol/HDL Ratio 3.03 Ratio; LDL Cholesterol,Calculated 64.1 mg/dL (0.0-131.0); VLDL Calculation 12.32 mg/dL (5.00-40.00)
--- NOTE | 2021-10-20 16:10 | US ---
EXAMINATION TYPE: US renals and bladder DATE OF EXAM: 10/20/2021 COMPARISON: NONE CLINICAL HISTORY: 81-year-old male retention. Patient has a Whitlock catheter. TECHNIQUE: Multiple sonographic images of the kidneys and bladder are obtained. FINDINGS: EXAM MEASUREMENTS: Right Kidney: 9.0 x 4.2 x 4.9 cm Left Kidney: 7.7 x 4.2 x 4.6 cm Youth Agent notes:Extremely limited exam due to overlying bowel gas. Patient unable to turn LLD or RLD for images. Right Kidney: No hydronephrosis or masses seen Left Kidney: No hydronephrosis or masses seen Bladder: Whitlock seen Bilateral Jets not seen due to whitlock IMPRESSION: 1. Very limited exam due to overlying bowel gas and patient's inability to properly position for the exam. No obvious hydronephrosis. 2. Whitlock catheter balloon is visualized within the collapsed bladder lumen.
--- NOTE | 2021-10-20 16:35 | P.PN ---
Subjective Progress Note Date: 10/20/21 The patient is seen at bedside and he continues to be about the same. Pending routine EEG today. Objective - Vital Signs Vital signs: Vital Signs Temp 98.8 F 10/20/21 03:49 Pulse 76 10/20/21 14:00 Resp 16 10/20/21 14:00 BP 141/65 10/20/21 12:00 Pulse Ox 91 L 10/20/21 12:00 Intake & Output 10/19/21 10/20/21 10/20/21 18:59 06:59 18:59 Output Total 800 370 Balance -800 -370 Weight 81.647 kg Output: Urine 800 370 Uretheral (Brady) 800 270 Other: Voiding Method Indwelling Catheter Indwelling Catheter Indwelling Catheter # Bowel Movements 0 2 - Exam GENERAL: The patient is lying in bed and is not in acute distress. NEUROLOGICAL: Higher mental function: The patient is awake, oriented to self. He stated he is in the hospital but stated over at [place]. He got mad about asking him the year and month and said "Not again". Patient is following simple commands. No aphasia and no neglect from limited examination. Cranial nerves: The pupils are round, equal and reactive to light. Visual hankins are full to confrontation throughout. Extraocular movement is intact no nystagmus is noted. Facial sensation is normal to touch throughout. The facial strength is normal throughout. Hearing is moderately bilaterally to hand rub. Tongue is midline and moved [id number] without any difficulty. No dysarthria is noted. Shoulder shrug is normal bilaterally. Motor: The strength is hard to assess because his cooperation but is raising all above gravity. SOME OF THE WORK-UP: Vitamin B12 is 393 which is considered low normal. Serum folate is 18.20. TSH is 1.790. INR is 1.9. Serum chemistry was reviewed and seems unremarkable. Ammonia level is less than 9 Urine toxicology screen is nondetected CT of the head is reported as no acute intracranial abnormality gross space occupying lesion by this on has computed tomography scan. Chronic and incidental finding as described. I personally reviewed the CT of the head and there is no acute subacute ischemia. 2-D echo is reported as technically suboptimal and incomplete study. Left ventricle systolic appears normal. Ejection fraction of 55-60%. Carotid duplex was reported as moderate atherosclerotic changes at the bifurcation but without any hemodynamically significant internal carotid artery stenosis on either side. - Labs CBC & Chem 7: 10/20/21 08:04 10/20/21 08:04 Labs: Abnormal Lab Results - Last 24 Hours (Table) 10/20/21 10/20/21 10/20/21 Range/Units 08:04 08:04 08:04 RBC 4.17 L (4.30-5.90) m/uL Hgb 12.3 L (13.0-17.5) gm/dL Hct 37.9 L (39.0-53.0) % PT 21.6 H (9.0-12.0) sec INR 2.2 H (<1.2) BUN 21 H (9-20) mg/dL Calcium 8.2 L (8.4-10.2) mg/dL HDL Cholesterol 37.60 L (40.00-60.00) mg/dL Procalcitonin (0.02-0.09) ng/mL Urine Protein (Negative) Urine Blood (Negative) Ur Leukocyte Esterase (Negative) Urine RBC (0-5) /hpf Urine WBC (0-5) /hpf Urine WBC Clumps (None) /hpf Urine Bacteria (None) /hpf Urine Mucus (None) /hpf 10/20/21 10/20/21 Range/Units 08:04 13:37 RBC (4.30-5.90) m/uL Hgb (13.0-17.5) gm/dL Hct (39.0-53.0) % PT (9.0-12.0) sec INR (<1.2) BUN (9-20) mg/dL Calcium (8.4-10.2) mg/dL HDL Cholesterol (40.00-60.00) mg/dL Procalcitonin 0.11 H (0.02-0.09) ng/mL Urine Protein 1+ H (Negative) Urine Blood Large H (Negative) Ur Leukocyte Esterase Large H (Negative) Urine RBC 174 H (0-5) /hpf Urine WBC 53 H (0-5) /hpf Urine WBC Clumps Occasional H (None) /hpf Urine Bacteria Rare H (None) /hpf Urine Mucus Few H (None) /hpf Assessment and Plan Assessment: Encephalopathy of unknown etiology. Rule out seizure (especially since patient has repeated episodes every few months lasting 30 minutes but according to daughter no jerking, eye fixation. He does have son and grand-child with hx of seizure at young age Reported transient left sided weakness that's reported rule out stroke especially with a history of atrial fibrillation and slight subtherapeutic INR (I feel stroke is unlikely) Atrial fibrillation on Coumadin and the INR is slightly subtherapeutic History of hypertension COPD Hyperlipidemia. Plan: Pending routine EEG. I'll not start the patient on antiepileptic drug unless there is a epileptiform discharges or seizure on the EEG. Recommend prolonged EEG as outpatient since patient having repeated episode of confusion to see if any seizure activity is picked up during these episodes. MRI of the brain with and without: pending. On Coumadin and was restarted on aspirin 81 mg and that his home medication of Lipitor 20 mg daily at bedtime. Patient has low normal vitamin B12 and was started on vitamin B12 500 g daily by primary team which I agree with. Recommend repeating the vitamin B12 level within a month. PT OT and [facility] are consulted Continue neuro checks Placed on cardiac monitoring We'll defer the rest of the medical management to the primary team Recommend the patient to follow-up with neurologist as outpatient within 1-2 weeks. The plan is discussed with the patient's nurse. Mart Gaston M.D. Neuro-hospitalist Time with Patient: Less than 30
--- NOTE | 2021-10-20 17:40 | EEG ---
ELECTROENCEPHALOGRAM REPORT DATE OF SERVICE: 10/20/2021. CLINICAL HISTORY: This is an 81-year-old gentleman with repeated episode of altered mental status. The video EEG is obtained to evaluate for seizure epileptiform activity. Relevant medication: The patient is not on any antiepileptic drugs. EEG TYPE: A routine 21-channel EEG is performed with video using the 10/20 electrode system. DESCRIPTION: Wakefulness and drowsiness are obtained. Predominantly drowsiness is seen during the study. During awake state, the background consists of low to moderate voltage of 8 hertz that is poorly modulated, poorly sustained. There is no physiological stage II sleep architecture seen. There is no focal slowing. Interictal and ictal is none. ACTIVATION PROCEDURE: Photic stimulation did not evoke a posterior driving response. There is no abnormality during the photic stimulation. Hyperventilation is not performed. CLINICAL INTERPRETATION: This is a normal routine EEG. There is no focal slowing, epileptiform discharge or seizure on the EEG. Clinical correlation is recommended. MAULIK / HERNANDON: [id number] / DAINA
[2021-10-20] MEDS: WARFARIN 5 MG TAB PO SCH (17:41)
[2021-10-20] MEDS: ATORVASTATIN 20 MG TAB PO SCH (20:07)
[2021-10-20] MEDS: TAMSULOSIN 0.4 MG CAP.ER.24H PO SCH (20:08)
[2021-10-21 05:36] LABS: Glucose,Whole Blood 113 mg/dL (75-99)
[2021-10-21] MEDS: SODIUM CHLORIDE 0.9% 1,000 ML IV SCH ×3 (05:51→21:05)
[2021-10-21] MEDS: PANTOPRAZOLE 40 MG TABLET PO SCH (05:52)
[2021-10-21] MEDS: FUROSEMIDE 20 MG TAB PO SCH (05:53)
[2021-10-21 07:48] LABS: Basophils # (A) 0.1 k/uL (0-0.2); Basophils % (A) 1 %; Eosinophils # (A) 0.5 k/uL (0-0.7); Eosinophils % (A) 6 %; HCT 37.7 % (39.0-53.0); HGB 11.8 gm/dL (13.0-17.5); Lymphocytes # (A) 1.5 k/uL (1.0-4.8); Lymphocytes % (A) 17 %; MCH 28.7 pg (25.0-35.0); MCHC 31.2 g/dL (31.0-37.0); Mean Platelet Volume 8.1; Monocytes # (A) 0.8 k/uL (0-1.0); Monocytes % (A) 8 %; Neutrophils # (A) 5.9 k/uL (1.3-7.7); Neutrophils % (A) 66 %; Platelet Count 221 k/uL (150-450); RDW 13.3 % (11.5-15.5); WBC 8.9 k/uL (3.8-10.6)
[2021-10-21] MEDS: SYMBICORT 160-4.5 MCG INHALER INHALATION SCH ×3 (07:50→19:24)
[2021-10-21 07:54] LABS: INR 2.5 (<1.2); Prothrombin Time 25.3 sec (9.0-12.0)
[2021-10-21 07:58] LABS: Calcium 8.1 mg/dL (8.4-10.2); Potassium 3.8 mmol/L (3.5-5.1)
[2021-10-21] MEDS: ASPIRIN 81 MG PO SCH (09:16)
[2021-10-21] MEDS: CYANOCOBALAMIN 500 MCG TAB PO SCH (09:16)
[2021-10-21] MEDS: METOPROLOL TARTRATE 25 MG TAB PO SCH ×2 (09:16→20:11)
[2021-10-21] MEDS: DILTIAZEM CD 120 MG CAP.ER.24H PO SCH (09:16)
--- NOTE | 2021-10-21 11:46 | P.PN ---
Subjective Patient initially was admitted under sound service team as per ED notes from 10/19/2021@14:25, pending service switched to our team. This is a pleasant 81 male with past medical history of Atrial Fibrillation, Cancer, Heart Failure, COPD, Dementia, GERD/Reflux, Hyperlipidemia, Hypertension, benign prostatic hypertrophy, Pt recently admitted to [facility] on 06/28/21 with expressive dysphasia, possible acute TIA or acute stroke, Chronic cervical pain with radiculopathy/numbness and tingling R arm/hand, chronic back pain with numbness/tingling bilateral legs, bilateral leg varicosities, kidney stone/surgically removed, , is status post Ablation, EPS Patient was sent from [facility] for altered mental status Also on admission has dehydration and urinary retention as per ED notes This morning patient was lying in bed, fully awake and oriented, he couldn't tell me he is in the hospital, however he thought this 2001 and he could not tell the month, he could not remember the name of the president but said he is deemed correct and the patient himself is edema, as he states. He does not know why he is in the hospital area he denies any pain and he does not know why he was taken morphine. He says he has been an ECF for 6 month. He denies chest pain or dyspnea. No abdominal pain or vomiting or diarrhea. No urinary complaints or urgency or change in frequency, no fever, no headache or numbness or weakness. He denies smoking, alcohol or illicit tracts Patient blood pressure was but to allow overnight 88/80, currently 105/57. Patient is afebrile. Showing mild leukocytosis of 11.4, hemoglobin 12.3. INR 1.9. BMP and liver enzymes are unremarkable. Vitamin B12 393, folate 18.2, TSH normal at 1.7. Ammonia less than 9. Troponin is negative. CT of the brain: No acute process Chest x-ray: No acute process. EKG: Atrial fibrillation at [address]-T changes Urine analysis showing large blood. Urine drug screen is negative. 10/21/2021 Patient today is more awake and interactive but he is still confused, he knows he is in the hospital but sometimes while on asking him and talking to him he stopped answering me in just posterior in the space. Most likely patient has elements of delirium related to his UTI, his repeat urine analysis from yesterday showing evidence of infection. We started him on ceftriaxone. Urine culture is pending. I discussed the case with Neurologist and his input is appreciated, EEG is n egative, MRI of the brain is still pending. He recommended outpatient prolonged EEG, I called his daughter upon his request mass in and updated in her with his condition and this recommendation and she verbalized understanding and acceptance. Upon my evaluation the suspicion of seizure is low I think most likely patient has metabolic encephalopathy related to his acute urinary tract infection. Possible discharge in 24-48 hours if he keeps improving and urine culture is back Plan per patient to go back to [facility] upon discharge Review of systems CONSTITUTIONAL: No fever, no malaise, no fatigue. HEENT: No recent visual problems or hearing problems. Denied any sore throat. CARDIOVASCULAR: No orthopnea, PND, no palpitations, no syncope. PULMONARY: No shortness of breath, no cough, no hemoptysis. GASTROINTESTINAL: No diarrhea, no nausea, no vomiting, no abdominal pain. Normoactive bowel sounds. NEUROLOGICAL: No headaches, no weakness, no numbness. Active Medications Generic Name Dose Route Start Last Admin Trade Name Freq PRN Reason Stop Dose Admin Acetaminophen 650 mg 10/19/21 14:35 10/20/21 20:07 Acetaminophen Tab 325 Mg Tab PO 650 mg Q6HR PRN Administration Mild Pain or Fever >= 100.5 Albuterol Sulfate 2.5 mg 10/19/21 14:35 Albuterol Nebulized 2.5 Mg/3 Ml INHALATION RT-Q4H PRN Shortness Of Breath Albuterol/Ipratropium 3 ml 10/19/21 14:35 Ipratropium-Albuterol 3 Ml Neb INHALATION RT-Q4H PRN Shortness Of Breath Or Wheezing Aspirin 81 mg 10/20/21 09:00 10/21/21 09:16 Aspirin 81 Mg PO 81 mg DAILY DAWNA Administration Atorvastatin Calcium 20 mg 10/19/21 21:00 10/20/21 20:07 Atorvastatin 20 Mg Tab PO 20 mg HS DAWNA Administration Budesonide/Formoterol Fumarate 2 puff 10/19/21 20:00 10/21/21 07:50 Symbicort 160-4.5 Mcg Inhaler INHALATION 2 puff RT-BID DAWNA Administration Cyanocobalamin 500 mcg 10/20/21 09:00 10/21/21 09:16 Cyanocobalamin 500 Mcg Tab PO 500 mcg DAILY DAWNA Administration Diltiazem HCl 120 mg 10/20/21 09:00 10/21/21 09:16 Diltiazem Cd 120 Mg Cap.Er.24h PO 120 mg DAILY@0900 DAWNA Administration Furosemide 20 mg 10/20/21 06:00 10/21/21 05:53 Furosemide 20 Mg Tab PO 20 mg DAILY@0600 DAWNA Administration Sodium Chloride 1,000 mls @ 130 mls/hr 10/19/21 14:45 10/21/21 06:42 Saline 0.9% IV Not Given .[id number] DAWNA Dextrose/Sodium Chloride 1,000 mls @ 75 mls/hr 10/20/21 07:00 10/20/21 21:34 Dextrose 5%-Ns Iv Soln IV 75 mls/hr .[id number] DAWNA Administration Ceftriaxone Sodium 1 gm/ 50 mls @ 100 mls/hr 10/21/21 09:30 Sodium Chloride IVPB Q24HR DAWNA Protocol Ceftriaxone Sodium 1 gm/ 50 mls @ 100 mls/hr 10/21/21 11:42 Sodium Chloride IVPB 10/21/21 12:11 ONCE STA Protocol Metoprolol Tartrate 25 mg 10/19/21 21:00 10/21/21 09:16 Metoprolol Tartrate 25 Mg Tab PO 25 mg BID@0900,2099 COUNT INCLUDES THE [facility] Administration Miscellaneous Information 0 each 10/20/21 07:48 Warfarin Per Pharmacy MISCELLANE DIRECTED PRN per protocol Pantoprazole Sodium 40 mg 10/20/21 06:00 10/21/21 05:52 Pantoprazole 40 Mg Tablet PO 40 mg DAILY@0600 DAWNA Administration Senna/Docusate Sodium 2 each 10/19/21 14:35 Sennosides-Docusate Sodium 1 Each Tab PO Q3D PRN no bowel movement Tamsulosin HCl 0.4 mg 10/19/21 21:00 10/20/21 20:08 Tamsulosin 0.4 Mg Cap.Er.24h PO 0.4 mg HS@2100 DAWNA Administration Warfarin Sodium 5 mg 10/20/21 17:00 10/20/21 17:41 Warfarin 5 Mg Tab PO 5 mg DAILY@1700 DAWNA Administration Protocol Objective - Vital Signs Vital signs: Vital Signs Temp 97.8 F 10/21/21 08:00 Pulse 65 10/21/21 08:00 Resp 14 10/21/21 08:00 BP 109/72 10/21/21 08:00 Pulse Ox 96 10/21/21 08:00 Intake & Output 10/20/21 10/21/21 10/21/21 18:59 06:59 18:59 Intake Total 420 Output Total 300 400 Balance -300 -400 420 Intake: Oral 420 Output: Urine 300 400 Uretheral (Brady) 100 Other: Voiding Method Indwelling Catheter Indwelling Catheter Indwelling Catheter # Bowel Movements 2 - Exam -GENERAL: The patient is alert and oriented x1-2, not in any acute distress. Well developed, well nourished. HEENT: Pupils are round and equally reacting to light. EOMI. No scleral icterus. No conjunctival pallor. Normocephalic, atraumatic. No pharyngeal erythema. No thyromegaly. CARDIOVASCULAR: S1 and S2 present. No murmurs, rubs, or gallops. PULMONARY: Chest is clear to auscultation, no wheezing or crackles. -ABDOMEN: Soft, nontender, nondistended, normoactive bowel sounds. No palpable organomegaly. Brady catheter MUSCULOSKELETAL: No joint swelling or deformity. EXTREMITIES: No cyanosis, clubbing, or pedal edema. NEUROLOGICAL: Gross neurological examination did not reveal any focal deficits. SKIN: No rashes. no petechiae. - Labs CBC & Chem 7: 10/21/21 07:11 10/21/21 07:11 Labs: Abnormal Lab Results - Last 24 Hours (Table) 10/20/21 10/20/21 10/21/21 Range/Units 08:04 13:37 05:34 RBC (4.30-5.90) m/uL Hgb (13.0-17.5) gm/dL Hct (39.0-53.0) % PT (9.0-12.0) sec INR (<1.2) Glucose (74-99) mg/dL POC Glucose (mg/dL) 113 H (75-99) mg/dL Calcium (8.4-10.2) mg/dL HDL Cholesterol 37.60 L (40.00-60.00) mg/dL Urine Protein 1+ H (Negative) Urine Blood Large H (Negative) Ur Leukocyte Esterase Large H (Negative) Urine RBC 174 H (0-5) /hpf Urine WBC 53 H (0-5) /hpf Urine WBC Clumps Occasional H (None) /hpf Urine Bacteria Rare H (None) /hpf Urine Mucus Few H (None) /hpf 10/21/21 10/21/21 10/21/21 Range/Units 07:11 07:11 07:11 RBC 4.10 L (4.30-5.90) m/uL Hgb 11.8 L (13.0-17.5) gm/dL Hct 37.7 L (39.0-53.0) % PT 25.3 H (9.0-12.0) sec INR 2.5 H (<1.2) Glucose 108 H (74-99) mg/dL POC Glucose (mg/dL) (75-99) mg/dL Calcium 8.1 L (8.4-10.2) mg/dL HDL Cholesterol (40.00-60.00) mg/dL Urine Protein (Negative) Urine Blood (Negative) Ur Leukocyte Esterase (Negative) Urine RBC (0-5) /hpf Urine WBC (0-5) /hpf Urine WBC Clumps (None) /hpf Urine Bacteria (None) /hpf Urine Mucus (None) /hpf Microbiology - Last 24 Hours (Table) 10/20/21 13:37 Urine Culture - Preliminary Urine,Voided Assessment and Plan Assessment: Acute urinary tract infection Altered mental status, rule out intracranial causes, rule out seizure, although the suspicion is low . Most likely patient has metabolic/toxic encephalopathy urinary retention with hematuria, could be traumatic from Brady catheter patient Chronic atrial fibrillation on warfarin, status post previous Ablation dementia Hyperlipidemia Hypertension COPD, no acute exacerbation Chronic heart failure, no acute exacerbation Benign prostatic hypertrophy History of TIA and aphasia Chronic cervical pain with radiculopathy/numbness and tingling R arm/hand chronic back pain with numbness/tingling bilateral legs Plan: This is a pleasant 81 male who presents with TIA Continue with aspirin, continue with warfarin, pharmacy to dose Neuro check Neurology consult follow-up MRI of the brain Follow-up urine culture and continue with ceftriaxone Continue with Brady catheter Discontinue morphine We will check renal ultrasound Labs and medication were reviewed.. Continue same treatment. Continue with symptomatic treatment. Resume home medication. Monitor lytes and vitals. DVT and GI prophylaxis. Further recommendations depends on the clinical course of the patient DVT prophylaxisOn Coumadin GI Prophylaxis: Ppi Prognosis is guarded
--- NOTE | 2021-10-21 12:43 | MR ---
EXAMINATION TYPE: MR brain wo/w con DATE OF EXAM: 10/21/2021 12:07 PM COMPARISON: NONE HISTORY: Seizure, ? left arm weakness reported CONTRAST: Patient received 9 mL intravenous Gadavist gadolinium contrast. Multiplanar and multispin-echo imaging of the brain was performed . Pre and post contrast enhanced i mages are obtained. The ventricles, basal cisterns and sulci overlying the cerebral convexities are moderately enlarged. There is evidence of moderate confluence periventricular white matter ischemic demyelination. Remote deep white matter insults are also noted. No acute edema is seen on diffusion weighted imaging. There is no evidence for midline shift or mass effect. Acute intracranial hemorrhage or extra-axial collection is not evident. No enhancing lesions are seen. The paranasal sinuses and mastoid air cells are well-aerated. IMPRESSION: Age-related atrophic and chronic small vessel ischemic change. No acute intracranial process at this time. No enhancing lesions are seen.
[2021-10-21] MEDS: WARFARIN 5 MG TAB PO SCH (17:35)
[2021-10-21] MEDS: TAMSULOSIN 0.4 MG CAP.ER.24H PO SCH (20:11)
[2021-10-21] MEDS: ATORVASTATIN 20 MG TAB PO SCH (20:11)
[2021-10-21] MEDS: DEXTROSE 5%-0.9% NACL 1,000 ML IV SCH (21:04)
[2021-10-22] MEDS: FUROSEMIDE 20 MG TAB PO SCH (05:49)
[2021-10-22] MEDS: PANTOPRAZOLE 40 MG TABLET PO SCH (05:50)
[2021-10-22] MEDS: SYMBICORT 160-4.5 MCG INHALER INHALATION SCH (08:17)
[2021-10-22 08:21] VITALS: TEMP 98.2
[2021-10-22] MEDS: METOPROLOL TARTRATE 25 MG TAB PO SCH (09:06)
[2021-10-22] MEDS: ASPIRIN 81 MG PO SCH (09:06)
[2021-10-22] MEDS: CYANOCOBALAMIN 500 MCG TAB PO SCH (09:06)
[2021-10-22] MEDS: DILTIAZEM CD 120 MG CAP.ER.24H PO SCH (09:07)
[2021-10-22 09:14] LABS: INR 2.6 (<1.2); Prothrombin Time 26.2 sec (9.0-12.0)
[2021-10-22] MEDS: SODIUM CHLORIDE 0.9% 1,000 ML IV SCH ×2 (10:56→10:57)
[2021-10-22] MEDS: DEXTROSE 5%-0.9% NACL 1,000 ML IV SCH (10:57)
--- NOTE | 2021-10-22 12:42 | P.DS ---
Providers Date of admission: 10/19/21 14:44 Attending physician: Osmin King MD Consults: 10/19/21 14:34 Consult Physician Urgent Consulting Provider: Mart Gaston Consult Reason/Comments: TIA Do you want consulting provider notified?: Already Contacted Primary care physician: Johnathan Bustillos Hospital Course: Acute urinary tract infection Acute urinary retention with hematuria, status post Brady catheter. Patient will benefit from evaluation as an outpatient with urology physician Altered mental status, rule out intracranial causes, rule out seizure, although the suspicion is low . Most likely patient has metabolic/toxic encephalopathy Chronic atrial fibrillation on warfarin, status post previous Ablation dementia Hyperlipidemia Hypertension COPD, no acute exacerbation Chronic heart failure, no acute exacerbation Benign prostatic hypertrophy History of TIA and aphasia Chronic cervical pain with radiculopathy/numbness and tingling R arm/hand chronic back pain with numbness/tingling bilateral legs Hospital course: This is a pleasant 81 male with past medical history of Atrial Fibrillation, Cancer, Heart Failure, COPD, Dementia, GERD/Reflux, Hyperlipidemia, Hypertension, benign prostatic hypertrophy, Pt recently admitted to [facility] on 06/28/21 with expressive dysphasia, possible acute TIA or acute stroke, Chronic cervical pain with radiculopathy/numbness and tingling R arm/hand, chronic back pain with numbness/tingling bilateral legs, bilateral leg varicosities, kidney stone/surgically removed, , is status post Ablation, EPS Patient was sent from [facility] for altered mental status Also on admission he had dehydration and urinary retention as per ED notes Patient is found to have acute urinary tract infection with urinary retention, Brady catheter was placed. He was treated with ceftriaxone and he showed interval improvement, his mentation is back to baseline and he monitored for 48 hours and he's awake and oriented and asks her question, he was little drowsy but more awake today. His urine culture is negative. Patient will be discharged on short course of oral antibiotic The Brady catheter to the patient evaluated by neurologist as an outpatient. Just also evaluated the patient, he had negative EKG for any epileptic for discharge, also he has negative MRI of the brain for acute process, he has degenerative and atrophic changes noted in the report. Patient denies any chest pain or dyspnea, no change in bowel habits. No abdominal pain. No fever. He tolerates diet well and has good appetite. Problems and management plan were discussed with the patient and he verbalized understanding and acceptance Patient was found stable and can be discharged home however he needs follow-up as an outpatient. Patient was instructed to follow up with PCP within one week and patient agrees Patient was instructed to follow up with urologist Dr. hodges 1-[address] Rodrigues Physical exam -Gen: patient is a awake and alert, he knows in the hospital, he follows commands and is appropriate, he has some memory problems no distress CVS: S1-S2, RRR, no murmur Lungs: B/L CTA, no wheezing Abdomen: soft, no distention, no tenderness, positive bowel sounds. Brady catheter in place Extremity: no leg edema or induration Time spent more than 35 minutes Patient Condition at Discharge: Fair Plan - Discharge Summary Discharge Rx Participant: No New Discharge Prescriptions: No Action Diltiazem HCl [Diltiazem HCl 24Hr ER (CD)] 120 mg PO DAILY@0900 Acetaminophen Tab [Tylenol] 650 mg PO Q6HR PRN tab PRN Reason: Mild Pain Or Fever >= 100.5 Albuterol Inhaler [Ventolin Hfa Inhaler] 1 puff INHALATION RT-Q4H PRN PRN Reason: Shortness Of Breath Tamsulosin [Flomax] 0.4 mg PO HS@2100 Ipratropium-Albuterol Nebulize [Duoneb 0.5 mg-3 mg/3 ml Soln] 3 ml INHALATION RT-Q4H PRN PRN Reason: Shortness Of Breath Or Wheezing Metoprolol Tartrate [Lopressor] 25 mg PO BID@0900,2100 Furosemide [Lasix] 20 mg PO DAILY@0600 Aspirin 81 mg PO DAILY tab Sennosides/Docusate Sodium [Senna Plus 8.6-50 mg Tablet] 2 tab PO Q3D PRN PRN Reason: no bowel movement Pantoprazole [Protonix] 40 mg PO DAILY@0600 Atorvastatin [Lipitor] 20 mg PO HS tab Budesonide-Formot 160-4.5 Mcg [Symbicort 160-4.5 Mcg Inhaler] 2 puff INHALATION RT-BID gm MORPHINE ORAL MARK CONC 20mg/mL [Roxanol Oral Soln Conc 20MG/ML] 5 mg PO Q3H PRN PRN Reason: Moderate Pain or dyspnea Warfarin [Coumadin] 5 mg PO DAILY@1700 Discharge Medication List Diltiazem HCl [Diltiazem HCl 24Hr ER (CD)] 120 mg PO DAILY@0900 04/04/18 [History] Acetaminophen Tab [Tylenol] 650 mg PO Q6HR PRN tab 07/07/20 [Rx] Albuterol Inhaler [Ventolin Hfa Inhaler] 1 puff INHALATION RT-Q4H PRN 08/26/20 [History] Tamsulosin [Flomax] 0.4 mg PO HS@209908/26/20 [History] Ipratropium-Albuterol Nebulize [Duoneb 0.5 mg-3 mg/3 ml Soln] 3 ml INHALATION RT-Q4H PRN 06/08/21 [History] Metoprolol Tartrate [Lopressor] 25 mg PO BID@0900,209906/08/21 [History] Furosemide [Lasix] 20 mg PO DAILY@0600 06/25/21 [History] Pantoprazole [Protonix] 40 mg PO DAILY@0606/25/21 [History] Aspirin 81 mg PO DAILY tab 06/28/21 [Rx] Atorvastatin [Lipitor] 20 mg PO HS tab 06/28/21 [Rx] Budesonide-Formot 160-4.5 Mcg [Symbicort 160-4.5 Mcg Inhaler] 2 puff INHALATION RT-BID gm 07/21/21 [Rx] MORPHINE ORAL MARK CONC 20mg/mL [Roxanol Oral Soln Conc 20MG/ML] 5 mg PO Q3H PRN 10/19/21 [History] Sennosides/Docusate Sodium [Senna Plus 8.6-50 mg Tablet] 2 tab PO Q3D PRN 10/19/21 [History] Warfarin [Coumadin] 5 mg PO DAILY@1700 10/19/21 [History] Follow up Appointment(s)/Referral(s): Rosa Rodrigues MD [REFERRING] - 1 Week Johnathan Bustillos MD [Primary Care Provider] - 1-2 days Bjorn Hodges MD [STAFF PHYSICIAN] - 1 Week Saba Boyd MD [Medical Doctor] - 1 Week Angie Rodrigues MD [REFERRING] - 1 Week
[2021-10-22 13:04] VITALS: BP 124/72; PULSE 76; RESP 18
[2021-10-22 13:19] LABS: Amorphous Sediment,Urine Rare /hpf; Appearance,Urine Clear (Clear); Bacteria,Urine Rare /hpf; Bilirubin,Urine Negative (Negative); Blood,Urine Large (Negative); Color,Urine Yellow; Glucose,Urine (UA) Negative (Negative); Ketones,Urine Negative (Negative); Leukocyte Esterase,Urine Large (Negative); Mucus,Urine Occasional /hpf; Nitrite,Urine Negative (Negative); PH, Urine 5.5 (5.0-8.0); Protein,Urine 1+ (Negative); RBC,Urine >182 /hpf (0-5); Specific Gravity,Urine 1.014 (1.001-1.035); Squamous Epithelial Cell,Urine <1 /hpf (0-4); Urobilinogen,Urine <2.0 mg/dL (<2.0); WBC,Urine 16 /hpf (0-5)
[2021-10-22 13:50] LABS: HCT 37.6 % (39.0-53.0); HGB 12.3 gm/dL (13.0-17.5); MCH 29.7 pg (25.0-35.0); MCHC 32.7 g/dL (31.0-37.0); MCV 90.7 fL (80.0-100.0); Mean Platelet Volume 7.9; Platelet Count 259 k/uL (150-450); RBC 4.14 m/uL (4.30-5.90); RDW 13.2 % (11.5-15.5); WBC 10.4 k/uL (3.8-10.6)
== END 2021-10-22 15:07 | DRG 689 ==
LOC: EC 08:55 → 3SCARD 14:44
PROVIDERS: ADMIT Internal Medicine; ATTEND Internal Medicine
DX: N39.0 Urinary tract infection, site not specified (principal); G92.8 Other toxic encephalopathy; I48.20 Chronic atrial fibrillation, unspecified; I50.32 Chronic diastolic (congestive) heart failure; I11.0 Hypertensive heart disease with heart failure; F03.90 Unspecified dementia, unspecified severity, without behavioral disturbance, psychotic disturbance, mood disturbance, and anxiety; E86.0 Dehydration; J44.9 Chronic obstructive pulmonary disease, unspecified; M54.12 Radiculopathy, cervical region; G89.29 Other chronic pain; M54.2 Cervicalgia; M54.9 Dorsalgia, unspecified; K21.9 Gastro-esophageal reflux disease without esophagitis; N40.1 Benign prostatic hyperplasia with lower urinary tract symptoms; R33.8 Other retention of urine; R31.9 Hematuria, unspecified; E78.5 Hyperlipidemia, unspecified; I83.90 Asymptomatic varicose veins of unspecified lower extremity; G47.00 Insomnia, unspecified; E55.9 Vitamin D deficiency, unspecified; Z79.82 Long term (current) use of aspirin; Z79.51 Long term (current) use of inhaled steroids; Z79.01 Long term (current) use of anticoagulants; Z79.899 Other long term (current) drug therapy; Z87.01 Personal history of pneumonia (recurrent); Z86.73 Personal history of transient ischemic attack (TIA), and cerebral infarction without residual deficits; Z87.442 Personal history of urinary calculi; Z85.828 Personal history of other malignant neoplasm of skin; Z98.1 Arthrodesis status; Z98.42 Cataract extraction status, left eye; Z98.41 Cataract extraction status, right eye; Z87.891 Personal history of nicotine dependence; Z98.890 Other specified postprocedural states; Z81.1 Family history of alcohol abuse and dependence; Z80.3 Family history of malignant neoplasm of breast; Z80.8 Family history of malignant neoplasm of other organs or systems; Z82.0 Family history of epilepsy and other diseases of the nervous system
CPT/HCPCS: 36415; 70450; 70553; 71046; 76770; 80048; 80053; 80061; 80306; 81001; 82140; 82607; 82746; 83605; 83690; 83735; 84145; 84443; 84484; 85025; 85027; 85610; 85730; 87086; 93005; 93308; 93880; 94640; 95816; 96360; 96361; 99291

== ENCOUNTER 2021-11-18 11:49 | Emergency (ER) | payer MEDICARE, OTHER ==
[2021-11-18 12:00] VITALS: BP 116/67; PULSE 57; RESP 16; TEMP 97.5
[2021-11-18] MEDS ORDERED: DIPH,PERTUS(ACELL)TETVAC-LF 0.5 ML VIAL IM ONE (12:22)
[2021-11-18] MEDS ORDERED: SODIUM CHLORIDE 0.9% 500 ML 500 ML IV STA (12:22)
[2021-11-18] MEDS ORDERED: LIDOCAINE 5% PATCH TOPICAL STA (12:25)
[2021-11-18 12:57] LABS: Basophils # (A) 0.1 k/uL (0-0.2); Basophils % (A) 1 %; Eosinophils # (A) 0.6 k/uL (0-0.7); Eosinophils % (A) 5 %; HCT 39.4 % (39.0-53.0); HGB 12.6 gm/dL (13.0-17.5); Lymphocytes # (A) 1.8 k/uL (1.0-4.8); Lymphocytes % (A) 16 %; MCH 28.6 pg (25.0-35.0); MCV 89.3 fL (80.0-100.0); Monocytes # (A) 0.7 k/uL (0-1.0); Monocytes % (A) 7 %; Neutrophils # (A) 7.9 k/uL (1.3-7.7); Neutrophils % (A) 70 %; Platelet Count 264 k/uL (150-450); RBC 4.41 m/uL (4.30-5.90); WBC 11.4 k/uL (3.8-10.6)
--- NOTE | 2021-11-18 13:01 | ED ---
General Adult HPI - General Chief complaint: Fall Stated complaint: Fall Time Seen by Provider: 11/18/21 12:16 Source: EMS, RN notes reviewed, old records reviewed Mode of arrival: EMS Limitations: no limitations - History of Present Illness Initial comments: Patient is an 81-year-old male with past medical history remarkable for atrial fibrillation on Coumadin, heart failure, COPD, dementia, hypertension presents emergency Department after a fall out of bed. Patient was sitting up on the side of bed when he fell down on the ground. Does not believe he lost consciousness. Believes it was a mechanical fall. He currently complains of left elbow pain, left-sided rib pain. Has no other acute complaints at this time. Presents for further evaluation at this time. Has a small abrasion to left elbow. Denies any change in vision, shortness breath, chest pain, abdominal pain. Denies any spine pain. Denies any other extremity pain. Presents for further evaluation of this time. - Related Data Home Medications Medication Instructions Recorded Confirmed Diltiazem HCl [Diltiazem HCl 24Hr 120 mg PO DAILY 04/04/18 11/18/21 ER (CD)] Albuterol Inhaler [Ventolin Hfa 1 puff INHALATION RT-Q4H PRN 08/26/20 11/18/21 Inhaler] Tamsulosin [Flomax] 0.4 mg PO HS 08/26/20 11/18/21 Ipratropium-Albuterol Nebulize 3 ml INHALATION RT-Q4H PRN 06/08/21 11/18/21 [Duoneb 0.5 mg-3 mg/3 ml Soln] Metoprolol Tartrate [Lopressor] 25 mg PO BID 06/08/21 11/18/21 Furosemide [Lasix] 20 mg PO DAILY@0606/25/21 11/18/21 Pantoprazole [Protonix] 40 mg PO DAILY@0606/25/21 11/18/21 Sennosides/Docusate Sodium [Senna 2 tab PO Q72H PRN 10/19/21 11/18/21 Plus 8.6-50 mg Tablet] Warfarin [Coumadin] 5 mg PO DAILY@1700 10/19/21 11/18/21 Zguard 1 applic TOPICAL Q12H 11/18/21 11/18/21 Previous Rx's Medication Instructions Recorded Acetaminophen Tab [Tylenol] 650 mg PO Q6HR PRN tab 07/07/20 Aspirin 81 mg PO DAILY tab 06/28/21 Atorvastatin [Lipitor] 20 mg PO HS tab 06/28/21 Budesonide-Formot 160-4.5 Mcg 2 puff INHALATION RT-BID gm 07/21/21 [Symbicort 160-4.5 Mcg Inhaler] Cyanocobalamin [Vitamin B-12] 500 mcg PO DAILY tab 10/22/21 Lidocaine 5% Patch [Lidoderm 5% 1 patch TOPICAL DAILY PRN 7 Days 11/18/21 Patch] #7 patch Allergies Allergy/AdvReac Type Severity Reaction Status Date / Time No Known Allergies Allergy Verified 11/18/21 13:32 Review of Systems ROS Statement: Those systems with pertinent positive or pertinent negative responses have been documented in the HPI. Review of Systems: CONST: Denies fever EYES: Denies blurry vision ENT: Denies nasal congestion C/V: Denies Chest pain RESP: Denies shortness of breath GI: Denies abdominal pain : Denies dysuria SKIN: Endorses left elbow abrasion MSK: Endorses rib pain NEURO: Denies headache ROS Other: All systems not noted in ROS Statement are negative. Past Medical History Past Medical History: Atrial Fibrillation, Cancer, Heart Failure, COPD, Dementia, GERD/Reflux, Hyperlipidemia, Hypertension, Pneumonia, Prostate Disorder Additional Past Medical History / Comment(s): Pt recently admitted to [facility] on 06/28/21 with expressive dysphasia, possible acute TIA or acute stroke. Other hx: Chronic cervical pain with radiculopathy/numbness and tingling R arm/hand, chronic back pain with numbness/tingling bilateral legs, bilateral leg varicosities, kidney stone/surgically removed, BPH, insomnia, weakness, vitamin D deficiency. 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 Past Anesthesia/Blood Transfusion Reactions: No Reported Reaction Past Psychological History: No Psychological Hx Reported Smoking Status: Former smoker Past Alcohol Use History: Unable to Obtain Past Drug Use History: Unable to Obtain - Past Family History Father Additional Family Medical History / Comment(s): Father was a drinker. He at the age of 80yrs. Mother Family Medical History: No Reported History Additional Family Medical History / Comment(s): Mother was healthy and lived to b90yrs old. Daughter(s) Family Medical History: Cancer Additional Family Medical History / Comment(s): Nely had breast cancer. Brother(s) Family Medical History: Cancer Additional Family Medical History / Comment(s): Brother had melanoma skin cancer. Sister(s) Family Medical History: Cancer Additional Family Medical History / Comment(s): Sister had melanoma skin cancer. General Exam - General Exam Comments Initial Comments: General: Appears in no acute distress. HEAD: Normal with no signs of head trauma. EYES: PERRLA, EOMI, conjunctiva normal, no discharge. ENT: Hearing grossly intact, normal oropharynx. RESPIRATORY: Clear breath sounds bilaterally. No wheezes, rales, or rhonchi. C/V: Irregular rate and rhythm. S1 and S2 auscultated, no edema, peripheral pulses 2+ and intact throughout ABD: Abd is soft, nontender, nondistended. Brady catheter in place. EXT: Normal range of motion of all 4 extremity as per mild tenderness palpation of the anterior aspect of the left shoulder, as well as the inferior most ribs in the anterior axillary line on the left side. Pelvis is stable. Patient has what may be a bruise located over his upper thoracic spine. No tenderness to palpation cervical, thoracic, lumbar spines. Normal range of motion without tenderness to palpation of the remainder of the extremities. SKIN: Small abrasion over the posterior aspect of the left elbow. Not actively. Bleeding. NEURO: Alert and oriented 3. NIH is 0. GCS is 15. No focal neurological deficits. Limitations: no limitations Course Vital Signs 11/18/21 11:52 Temperature 97.5 F L Pulse Rate 57 L Respiratory 16 Rate Blood Pressure 116/67 O2 Sat by Pulse 94 L Oximetry Medical Decision Making - Medical Decision Making Abdomen the patient's presentation and physical exam, I'm concerned for a mecha nical fall on blood thinners. Does not meet criteria for trauma activation. However we will obtain basic trauma labs, screening EKG, as well as CT imaging of the brain, spine and x-rays of the ribs, elbow, shoulder and pelvis. He'll be given lidocaine patch for analgesia. Also receive a tetanus booster. Patient was in agreement this plan. EKG showed no signs of acute ischemia.Laboratory studies were remarkable for a therapeutic INR. The remainder of the labs are relatively unremarkable. CT imaging of the brain, C-spine, T-spine show no acute process. There are chronic findings. No acute injury. X-rays of the elbow, shoulder, pelvis, ribs and chest reveal no acute traumatic injury. On reevaluation, patient is feeling improved. I discussed the findings with him. Patient's daughter is at bedside at this time as well and updated her. I do believe it is safe to discharge him back to his facility. They were in agreement with this plan. Will be given a prescription for lidocaine patches. Patient be discharged home via wheelchair van. I will provide the patient with a prescription for lidocaine patch. I instructed the patient to follow up with their PCP in the next 3 days. I explained that the patient should return to the emergency department if they experience any worsening symptoms. Strict return precautions were discussed with the patient. T he patient expressed understanding of these instructions. I answered all questions that the patient had. The patient was discharged home in good condition with their prescriptions and follow up information. Vital signs remain within normal limits throughout his stay. - Lab Data Result diagrams: 11/18/21 12:30 11/18/21 12:30 Lab Results 11/18/21 11/18/21 11/18/21 Range/Units 12:30 12:30 12:30 WBC 11.4 H (3.8-10.6) k/uL RBC 4.41 (4.30-5.90) m/uL Hgb 12.6 L (13.0-17.5) gm/dL Hct 39.4 (39.0-53.0) % MCV 89.3 (80.0-100.0) fL MCH 28.6 (25.0-35.0) pg MCHC 32.0 (31.0-37.0) g/dL RDW 14.0 (11.5-15.5) % Plt Count 264 (150-450) k/uL MPV 8.0 Neutrophils % 70 % Lymphocytes % 16 % Monocytes % 7 % Eosinophils % 5 % Basophils % 1 % Neutrophils # 7.9 H (1.3-7.7) k/uL Lymphocytes # 1.8 (1.0-4.8) k/uL Monocytes # 0.7 (0-1.0) k/uL Eosinophils # 0.6 (0-0.7) k/uL Basophils # 0.1 (0-0.2) k/uL PT 23.4 H (9.0-12.0) sec INR 2.3 H (<1.2) APTT 30.2 H (22.0-30.0) sec Sodium 142 (137-145) mmol/L Potassium 4.4 (3.5-5.1) mmol/L Chloride 101 (98-107) mmol/L Carbon Dioxide 30 (22-30) mmol/L Anion Gap 11 mmol/L BUN 22 H (9-20) mg/dL Creatinine 0.97 (0.66-1.25) mg/dL Est GFR (CKD-EPI)AfAm 85 (>60 ml/min/1.73 sqM) Est GFR (CKD-EPI)NonAf 74 (>60 ml/min/1.73 sqM) Glucose 110 H (74-99) mg/dL Calcium 8.9 (8.4-10.2) mg/dL Total Bilirubin 0.6 (0.2-1.3) mg/dL AST 24 (17-59) U/L ALT 21 (4-49) U/L Alkaline Phosphatase 107 (38-126) U/L Total Protein 7.9 (6.3-8.2) g/dL Albumin 4.0 (3.5-5.0) g/dL Urine Color Urine Appearance (Clear) Urine pH (5.0-8.0) Ur Specific [place] (1.001-1.035) Urine Protein (Negative) Urine Glucose (UA) (Negative) Urine Ketones (Negative) Urine Blood (Negative) Urine Nitrite (Negative) Urine Bilirubin (Negative) Urine Urobilinogen (<2.0) mg/dL Ur Leukocyte Esterase (Negative) Urine RBC (0-5) /hpf Urine WBC (0-5) /hpf Ur Squamous Epith Cells (0-4) /hpf Urine Bacteria (None) /hpf Urine Mucus (None) /hpf Blood Type Blood Type Recheck Bld Type Recheck Status Antibody Screen Spec Expiration Date 11/18/21 11/18/21 Range/Units 12:30 12:35 WBC (3.8-10.6) k/uL RBC (4.30-5.90) m/uL Hgb (13.0-17.5) gm/dL Hct (39.0-53.0) % MCV (80.0-100.0) fL MCH (25.0-35.0) pg MCHC (31.0-37.0) g/dL RDW (11.5-15.5) % Plt Count (150-450) k/uL MPV Neutrophils % % Lymphocytes % % Monocytes % % Eosinophils % % Basophils % % Neutrophils # (1.3-7.7) k/uL Lymphocytes # (1.0-4.8) k/uL Monocytes # (0-1.0) k/uL Eosinophils # (0-0.7) k/uL Basophils # (0-0.2) k/uL PT (9.0-12.0) sec INR (<1.2) APTT (22.0-30.0) sec Sodium (137-145) mmol/L Potassium (3.5-5.1) mmol/L Chloride (98-107) mmol/L Carbon Dioxide (22-30) mmol/L Anion Gap mmol/L BUN (9-20) mg/dL Creatinine (0.66-1.25) mg/dL Est GFR (CKD-EPI)AfAm (>60 ml/min/1.73 sqM) Est GFR (CKD-EPI)NonAf (>60 ml/min/1.73 sqM) Glucose (74-99) mg/dL Calcium (8.4-10.2) mg/dL Total Bilirubin (0.2-1.3) mg/dL AST (17-59) U/L ALT (4-49) U/L Alkaline Phosphatase (38-126) U/L Total Protein (6.3-8.2) g/dL Albumin (3.5-5.0) g/dL Urine Color Yellow Urine Appearance Cloudy (Clear) Urine pH 5.0 (5.0-8.0) Ur Specific [place] 1.016 (1.001-1.035) Urine Protein 1+ H (Negative) Urine Glucose (UA) Negative (Negative) Urine Ketones Negative (Negative) Urine Blood Large H (Negative) Urine Nitrite Negative (Negative) Urine Bilirubin Negative (Negative) Urine Urobilinogen <2.0 (<2.0) mg/dL Ur Leukocyte Esterase Small H (Negative) Urine RBC >182 H (0-5) /hpf Urine WBC 4 (0-5) /hpf Ur Squamous Epith Cells <1 (0-4) /hpf Urine Bacteria Rare H (None) /hpf Urine Mucus Rare H (None) /hpf Blood Type B Positive Blood Type Recheck B Pos Bld Type Recheck Status No Antibody Screen NEGATIVE Spec Expiration Date 11/21/20212334 - EKG Data -: EKG Interpreted by Me EKG Comments: 12-lead Electrocardiogram Interpretation Note EKG was reviewed and interpreted by myself. 12-lead ECG performed at 1207 is interpreted by me as revealing atrial fibrillation with PVC at a rate of 64 beats per minute. [place] is normal. [place] interval is unobtainable, QRS duration is 92 ms, QTc is 437 ms.. There were no ST or T wave abnormalities to suggest myocardial ischemia or injury. R wave progression across the precordium was satisfactory. By my interpretation this EKG is non-diagnostic for acute ischemia. Disposition Clinical Impression: Fall, Bruised ribs Disposition: HOME SELF-CARE Condition: Good Instructions (If sedation given, give patient instructions): Fall Prevention (ED), Rib Contusion (ED) Prescriptions: Lidocaine 5% Patch [Lidoderm 5% Patch] 1 patch TOPICAL DAILY PRN 7 Days #7 patch PRN Reason: Pain Is patient prescribed a controlled substance at d/c from ED?: No Referrals: Johnathan Bustillos MD [Primary Care Provider] - 1-2 days Time of Disposition: 14:45
[2021-11-18 13:04] LABS: Calcium 8.9 mg/dL (8.4-10.2); INR 2.3 (<1.2); Partial Thromboplastin Time 30.2 sec (22.0-30.0); Potassium 4.4 mmol/L (3.5-5.1); Prothrombin Time 23.4 sec (9.0-12.0); Total Bilirubin 0.6 mg/dL (0.2-1.3); Total Protein 7.9 g/dL (6.3-8.2)
--- NOTE | 2021-11-18 13:34 | CT ---
EXAMINATION TYPE: CT brain cspine wo con DATE OF EXAM: 11/18/2021 COMPARISON: Brain 10/19/2021. CT chest 07/19/2021 HISTORY: 81-year-old male with pain after trauma, fall CT DLP: 1496.1 mGycm Automated exposure control for dose reduction was used. Technique: Examination of the head was done in axial plane without intravenous contrast. Coronal and sagittal reconstructions performed. CT of the cervical spine was obtained in axial plane without intravenous injection of contrast mater ial. Coronal and sagittal reformatted images were obtained from the axial views for evaluation of f ractures, spinal alignment and canal. FINDINGS: Head: There is no evidence of acute intracranial hemorrhage, acute ischemic changes, mass, mass-effect, or extra-axial fluid collection. There is no effacement of cerebral sulci or basal subarachnoid cister ns. There is no hydrocephalus. There is no midline shift. Mata-white matter distinction is preserv ed. Similar moderate generalized supratentorial volume loss. Moderate confluent white matter hypodensitie s in both cerebral hemispheres. Mild ventricle megaly likely secondary to central cerebral atrophy, u nchanged. Markedly angulated nasal septum likely secondary to old nasal bone fractures. Paranasal sinuses and m astoid air cells are well pneumatized. Orbits and globes are intact. Cervical spine: No craniocervical junction abnormality, predental space widening, or prevertebral soft tissue swellin g. Degenerative changes at the C1 dens articulation. Postsurgical change of C3-C6 ACDF with mature interbody ankylosis. Severe degenerative disc disease b elow the fusion at C6-C7. Disc osteophyte complex here contributes to at least mild spinal canal sten osis. Posterior osteophytic ridging at the fused C4-C5 level also likely causes at least mild spinal canal stenosis. Reversal of the normal cervical lordosis. Preserved alignment. Facet and uncovertebral joint arthropathy especially lower cervical spine. No acute fracture of the cervical spine. Mild superior endplate deformity of T3 unchanged from 07/19/19 22. On the left, moderate neural foraminal stenosis at C3-C4. Moderate right greater than left at C4-C5. Mild to moderate left at C5-C6, moderate right and [id number] left at C6-C7. Underlying moderate emphysematous change. Extensive biapical pleural parenchymal scarring. Sagittal and coronal reformatted images confirm above findings. COMBINED IMPRESSION: 1. Similar [id number] generalized atrophy. Secondary mild ventricular prominence unchanged. Als o, unchanged moderate confluence burden of chronic small vessel ischemic disease. No acute intracrani al abnormality seen. 2. Status post C3-C6 ACDF. At least mild spinal canal stenoses C4-C5 and C6-C7. Variable moderate sarita ral foraminal stenoses as outlined above. Moderate spondylotic change. No acute fracture of the cervi deepali spine.
--- NOTE | 2021-11-18 13:53 | XR ---
EXAMINATION TYPE: XR elbow complete LT DATE OF EXAM: 11/18/2021 COMPARISON: None HISTORY: Fall, pain TECHNIQUE: 3 view left elbow FINDINGS: Radius aligns normally with the humerus. No acute fracture or dislocation is evident. Anter ior fat pad is normal. No elevation of the posterior fat-pad is evident which is normal. Follow-up exam could be performed in 7-10 days from acute trauma for continued pain. IMPRESSION: 1. No acute osseous abnormality left elbow
--- NOTE | 2021-11-18 13:55 | XR ---
EXAMINATION TYPE: XR ribs LT w pa chest xray DATE RECEIVED ON: 11/18/2021 DATE PERFORMED: 11/18/2021 COMPARISON: 10/19/2021 HISTORY: Rib pain, fall TECHNIQUE: Left ribs are examined in 2 views and supplemented with frontal chest FINDINGS: The heart size is normal. The pulmonary vasculature is somewhat prominent. Increased lung markings are more focal in the right upper lobe. Some mild left lower lobe infiltrate may be present. No pneumothorax is evident. No displaced rib fractures are identified on the left. IMPRESSION: 1. No acute left rib abnormality. Follow-up can be performed as clinically indicated.
--- NOTE | 2021-11-18 13:56 | XR ---
EXAMINATION TYPE: XR shoulder complete LT DATE OF EXAM: 11/18/2021 COMPARISON: NONE HISTORY: Pain TECHNIQUE: Shoulder examined in 3 projections FINDINGS: The humeral head articulates with the glenoid. The acromio-clavicular junction is normal. No acute fractures or dislocations are evident. A follow up study can be performed 7-10 days from acute trauma for continued pain. IMPRESSION: 1. No acute osseous abnormality left shoulder
--- NOTE | 2021-11-18 13:58 | XR ---
EXAMINATION TYPE: XR pelvis AP view DATE OF EXAM: 11/18/2021 COMPARISON: None HISTORY: Fall, trauma TECHNIQUE: AP pelvis FINDINGS: Femoral heads articulate with the acetabulum. There is narrowing of the joint spaces compat ible with mild to moderate osteoarthritic degenerative change. Symphysis pubis is intact. Sacroiliac joints appear normal. Normal colonic bowel gas is present. Follow-up exams can be performed 7-10 days , continuing pain. IMPRESSION: 1. No acute osseous abnormality AP pelvis
--- NOTE | 2021-11-18 14:12 | CT ---
EXAMINATION TYPE: CT thoracic spine wo con DATE OF EXAM: 11/18/2021 COMPARISON: None HISTORY: Trauma, fall CT DLP: 1384 mGycm Automated exposure control for dose reduction was used. FINDINGS: The thoracic vertebral segments are normal in alignment. There is a vertebral plana deformity of T10 however this was present on a prior chest x-ray dated 10/09. There is a mild inferior endplate compression fracture T12 of indeterminate age. There is anterior fusion in the mid lower cervical spine. There is mild degenerative disease throughout the thoracic region and upper lumbar region. There is no bony encroachment of the thoracic spinal canal. The paraspinal soft tissues unremarkable. The osseous structures are diffusely osteopenic. 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 Impression: 1. No definite acute fracture of the thoracic spine although a severe chronic fracture of T10 is pres ent along with a mild inferior compression fracture of T12 of indeterminate age. 2. No bony encroachment of the thoracic spinal canal. 3. anterior interdisc fusion in the cervical spine. 4. 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 IMPRESSION:
[2021-11-18 14:45] LABS: Appearance,Urine Cloudy (Clear); Bacteria,Urine Rare /hpf; Bilirubin,Urine Negative (Negative); Blood,Urine Large (Negative); Color,Urine Yellow; Glucose,Urine (UA) Negative (Negative); Ketones,Urine Negative (Negative); Leukocyte Esterase,Urine Small (Negative); Mucus,Urine Rare /hpf; Nitrite,Urine Negative (Negative); Protein,Urine 1+ (Negative); RBC,Urine >182 /hpf (0-5); Specific Gravity,Urine 1.016 (1.001-1.035); Squamous Epithelial Cell,Urine <1 /hpf (0-4); Urobilinogen,Urine <2.0 mg/dL (<2.0); WBC,Urine 4 /hpf (0-5)
== END 2021-11-18 17:13 | disposition home or self-care (01) ==
LOC: EC 11:49
DX: S20.20XA Contusion of thorax, unspecified, initial encounter (principal); Z23 Encounter for immunization; E78.5 Hyperlipidemia, unspecified; I11.0 Hypertensive heart disease with heart failure; I48.91 Unspecified atrial fibrillation; I50.9 Heart failure, unspecified; J44.9 Chronic obstructive pulmonary disease, unspecified; K21.9 Gastro-esophageal reflux disease without esophagitis; Z79.01 Long term (current) use of anticoagulants; Z79.82 Long term (current) use of aspirin; Z79.51 Long term (current) use of inhaled steroids; Z79.899 Other long term (current) drug therapy; Z87.891 Personal history of nicotine dependence; W06.XXXA Fall from bed, initial encounter
CPT/HCPCS: 36415; 70450; 72125; 72128; 72170; 80053; 81001; 85025; 85610; 85730; 86850; 86900; 86901; 90471; 90715; 93005; 96360; 99285

== ENCOUNTER 2022-06-09 05:15 | Inpatient (IN) | payer MEDICARE, OTHER ==
[2022-06-09] MEDS ORDERED: MORPHINE SULFATE 4 MG/ML SYRINGE IM STA (05:33)
--- NOTE | 2022-06-09 06:38 | XR ---
EXAM: XR Left Hip With Pelvis When Performed, 2 or 3 Views CLINICAL HISTORY: ITS.REASON XR Reason: fall injury TECHNIQUE: Two or three views of the left hip with pelvis when performed. COMPARISON: 11/18/2021 FINDINGS: Bones/joints: Impacted subcapital left femoral neck fracture. No left hip dislocation. Soft tissues: Unremarkable. IMPRESSION: Impacted subcapital left femoral neck fracture. No left hip dislocation.
--- NOTE | 2022-06-09 06:40 | CT ---
EXAM: CT Head Without Intravenous Contrast CLINICAL HISTORY: ITS.REASON CT Reason: fall injury TECHNIQUE: Axial computed tomography images of the head/brain without intravenous contrast. CTDI is 49.1 mGy and DLP is 1098 mGy-cm. This CT exam was performed using one or more of the following dose reduction techniques: automated exposure control, adjustment of the mA and/or kV according to patient size, and/or use of iterative reconstruction technique. COMPARISON: No relevant prior studies available. FINDINGS: Brain: Unremarkable. No hemorrhage. Patchy periventricular white matter hypoattenuation which is nonspecific most commonly seen in the setting of small vessel ischemic disease. No edema. Ventricles: Unremarkable. No ventriculomegaly. Bones/joints: Unremarkable. No acute fracture. Soft tissues: Unremarkable. Sinuses: Unremarkable as visualized. No acute sinusitis. Mastoid air cells: Unremarkable as visualized. No mastoid effusion. IMPRESSION: No acute intracranial process.
--- NOTE | 2022-06-09 06:41 | XR ---
EXAM: XR Chest, 1 View CLINICAL HISTORY: ITS.REASON XR Reason: FALL TECHNIQUE: Frontal view of the chest. COMPARISON: No relevant prior studies available. FINDINGS: Lungs: Unremarkable. No consolidation. Pleural space: Unremarkable. No pneumothorax. Heart: Unremarkable. No cardiomegaly. Mediastinum: Unremarkable. Bones/joints: Partially visualized inferior spinal fusion hardware in the lower cervical spine. IMPRESSION: No acute pulmonary process.
[2022-06-09] MEDS ORDERED: MORPHINE SULFATE 4 MG/ML SYRINGE IV STA (06:49)
[2022-06-09 06:52] LABS: Basophils # (A) 0.1 k/uL (0-0.2); Basophils % (A) 1 %; Eosinophils # (A) 0.1 k/uL (0-0.7); Eosinophils % (A) 2 %; HCT 39.6 % (39.0-53.0); HGB 13.3 gm/dL (13.0-17.5); Lymphocytes # (A) 1.4 k/uL (1.0-4.8); Lymphocytes % (A) 25 %; MCH 28.6 pg (25.0-35.0); MCHC 33.5 g/dL (31.0-37.0); MCV 85.2 fL (80.0-100.0); Mean Platelet Volume 8.3; Monocytes # (A) 0.4 k/uL (0-1.0); Monocytes % (A) 7 %; Neutrophils # (A) 3.6 k/uL (1.3-7.7); Neutrophils % (A) 63 %; Platelet Count 225 k/uL (150-450); RBC 4.65 m/uL (4.30-5.90); RDW 15.3 % (11.5-15.5); WBC 5.7 k/uL (3.8-10.6)
[2022-06-09 07:00] LABS: INR 1.9 (<1.2); Partial Thromboplastin Time 28.9 sec (22.0-30.0); Prothrombin Time 19.1 sec (9.0-12.0)
[2022-06-09] MEDS ORDERED: SODIUM CHLORIDE 0.9% 1,000 ML IV SCH (07:00)
[2022-06-09] MEDS ORDERED: NALOXONE 0.4 MG/ML 1 ML VIAL IV PRN (07:00)
[2022-06-09] MEDS ORDERED: MAG HYDROX/AL HYDROX/SIMETH 30 ML CUP PO PRN (07:00)
[2022-06-09] MEDS ORDERED: MORPHINE SULFATE 4 MG/ML SYRINGE IV PRN (07:00)
--- NOTE | 2022-06-09 07:04 | ED ---
Fall HPI - General Chief Complaint: Fall Stated Complaint: fall,leg pain Time Seen by Provider: 06/09/22 05:27 Source: patient, EMS Mode of arrival: EMS - History of Present Illness Initial Comments: This patient is an 81-year-old man transferred here from [facility] to have evaluation after he had a ground-level fall. The patient complains of pain to both hip areas. He states after the fall he is not able to get back up. He states he was trying to use a walker to walk but then fell. Denies head, neck, chest or back pain MD Complaint: fall -: hour(s) When Fall Occurred: just prior to arrival Fall Witnessed: no Place Fall Occurred: retirement/SNF Loss of Consciousness: none Prolonged Down Time?: no Location: buttocks Severity: severe Quality: sharp Context: history of frequent falls - Related Data Home Medications Medication Instructions Recorded Confirmed dilTIAZem HCL [dilTIAZem HCL 24Hr 120 mg PO DAILY 04/04/18 06/09/22 ER (CD)] Albuterol Inhaler [Ventolin Hfa 1 puff INHALATION RT-Q4H PRN 08/26/20 06/09/22 Inhaler] Tamsulosin [Flomax] 0.4 mg PO HS 08/26/20 06/09/22 Ipratropium-Albuterol Nebulize 3 ml INHALATION RT-Q4H PRN 06/08/21 06/09/22 [Duoneb 0.5 mg-3 mg/3 ml Soln] Metoprolol Tartrate [Lopressor] 25 mg PO BID 06/08/21 06/09/22 Furosemide [Lasix] 20 mg PO DAILY@0606/25/21 06/09/22 Pantoprazole [Protonix] 40 mg PO DAILY@0606/25/21 06/09/22 Sennosides/Docusate Sodium [Senna 2 tab PO Q72H PRN 10/19/21 06/09/22 Plus 8.6-50 mg Tablet] Warfarin [Coumadin] 5 mg PO MOTH@1700 10/19/21 06/09/22 Zguard 1 applic TOPICAL Q3D 11/18/21 06/09/22 Calcium Carb-Vit D 500Mg-5Mcg 1 tab PO BID 06/09/22 06/09/22 [Oscal 500+D 5 Mcg (200 Iu)] Menthol [Biofreeze] 1 applic TOPICAL QID PRN 06/09/22 06/09/22 Optifoam 1 applic TOPICAL Q3D 06/09/22 06/09/22 Warfarin [Coumadin] 3 mg PO MINNIE@1700 06/09/22 06/10/22 Previous Rx's Medication Instructions Recorded Acetaminophen Tab [Tylenol] 650 mg PO Q6HR PRN tab 07/07/20 Aspirin 81 mg PO DAILY tab 06/28/21 Atorvastatin [Lipitor] 20 mg PO HS tab 06/28/21 Budesonide-Formot 160-4.5 Mcg 2 puff INHALATION RT-BID gm 07/21/21 [Symbicort 160-4.5 Mcg Inhaler] Cyanocobalamin [Vitamin B-12] 500 mcg PO DAILY tab 10/22/21 Allergies Allergy/AdvReac Type Severity Reaction Status Date / Time No Known Allergies Allergy Verified 06/09/22 07:21 Review of Systems ROS Statement: Those systems with pertinent positive or pertinent negative responses have been documented in the HPI. ROS Other: All systems not noted in ROS Statement are negative. Constitutional: Denies: fever Respiratory: Denies: cough, dyspnea Cardiovascular: Denies: chest pain, syncope Gastrointestinal: Denies: abdominal pain, vomiting Genitourinary: Denies: testicular pain Musculoskeletal: Reports: as per HPI, arthralgia. Denies: back pain Neurological: Denies: headache, weakness Past Medical History Past Medical History: Atrial Fibrillation, Cancer, Heart Failure, COPD, Dementia, GERD/Reflux, Hyperlipidemia, Hypertension, Pneumonia, Prostate Disorder Additional Past Medical History / Comment(s): Pt recently admitted to [facility] on 06/28/21 with expressive dysphasia, possible acute TIA or acute stroke. Other hx: Chronic cervical pain with radiculopathy/numbness and tingling R arm/hand, chronic back pain with numbness/tingling bilateral legs, bilateral leg varicosities, kidney stone/surgically removed, BPH, insomnia, weakness, vitamin D deficiency. 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 Past Anesthesia/Blood Transfusion Reactions: No Reported Reaction Past Psychological History: No Psychological Hx Reported Smoking Status: Former smoker Past Alcohol Use History: Unable to Obtain Past Drug Use History: Unable to Obtain - Past Family History Father Additional Family Medical History / Comment(s): Father was a drinker. He at the age of 80yrs. Mother Family Medical History: No Reported History Additional Family Medical History / Comment(s): Mother was healthy and lived to b90yrs old. Daughter(s) Family Medical History: Cancer Additional Family Medical History / Comment(s): Nely had breast cancer. Brother(s) Family Medical History: Cancer Additional Family Medical History / Comment(s): Brother had melanoma skin cancer. Sister(s) Family Medical History: Cancer Additional Family Medical History / Comment(s): Sister had melanoma skin cancer. General Exam Limitations: no limitations General appearance: alert, in distress Head exam: Present: atraumatic, normocephalic Eye exam: Present: normal appearance. Absent: scleral icterus, conjunctival injection ENT exam: Present: mucous membranes dry Neck exam: Present: normal inspection. Absent: tenderness Respiratory exam: Present: normal lung sounds bilaterally. Absent: respiratory distress, wheezes, rales, rhonchi, stridor Cardiovascular Exam: Present: regular rate, normal rhythm, normal heart sounds. Absent: systolic murmur, diastolic murmur, rubs, gallop GI/Abdominal exam: Present: soft. Absent: distended, tenderness, guarding, rebound, rigid, mass Extremities exam: Present: tenderness, normal capillary refill, other (There is shortening and external rotation left hip.). Absent: full ROM, pedal edema Back exam: Present: normal inspection. Absent: vertebral tenderness Neurological exam: Present: alert. Absent: motor sensory deficit Skin exam: Present: warm, dry, intact, normal color. Absent: rash Course Vital Signs 06/09/22 06/09/22 06/09/22 05:19 12:28 16:50 Temperature 98.4 F Pulse Rate 88 95 116 H Respiratory 20 18 Rate Blood Pressure 123/80 172/88 O2 Sat by Pulse 89 L 96 Oximetry 06/09/22 06/09/22 17:01 17:08 Temperature 97.9 F Pulse Rate 108 H 89 Respiratory 20 Rate Blood Pressure 107/62 O2 Sat by Pulse 100 Oximetry Medical Decision Making - Medical Decision Making Patient is an 81-year-old man presenting after a ground-level fall and found to have left femoral neck fracture. Case discussed with Dr. Barnett, orthopedist on- call who will admit. Case also discussed with medical consultants. - Lab Data Result diagrams: 06/10/22 06:23 06/10/22 06:23 Lab Results 06/09/22 06/09/22 06/09/22 Range/Units 06:40 06:40 06:40 WBC 5.7 (3.8-10.6) k/uL RBC 4.65 (4.30-5.90) m/uL Hgb 13.3 (13.0-17.5) gm/dL Hct 39.6 (39.0-53.0) % MCV 85.2 (80.0-100.0) fL MCH 28.6 (25.0-35.0) pg MCHC 33.5 (31.0-37.0) g/dL RDW 15.3 (11.5-15.5) % Plt Count 225 (150-450) k/uL MPV 8.3 Neutrophils % 63 % Lymphocytes % 25 % Monocytes % 7 % Eosinophils % 2 % Basophils % 1 % Neutrophils # 3.6 (1.3-7.7) k/uL Lymphocytes # 1.4 (1.0-4.8) k/uL Monocytes # 0.4 (0-1.0) k/uL Eosinophils # 0.1 (0-0.7) k/uL Basophils # 0.1 (0-0.2) k/uL PT 19.1 H (9.0-12.0) sec INR 1.9 H (<1.2) APTT 28.9 (22.0-30.0) sec Sodium 137 (137-145) mmol/L Potassium 3.9 (3.5-5.1) mmol/L Chloride 104 (98-107) mmol/L Carbon Dioxide 29 (22-30) mmol/L Anion Gap 4 mmol/L BUN 22 H (9-20) mg/dL Creatinine 1.28 H (0.66-1.25) mg/dL Est GFR (CKD-EPI)AfAm 60 (>60 ml/min/1.73 sqM) Est GFR (CKD-EPI)NonAf 52 (>60 ml/min/1.73 sqM) Glucose 103 H (74-99) mg/dL Calcium 7.9 L (8.4-10.2) mg/dL Total Bilirubin 0.6 (0.2-1.3) mg/dL AST 38 (17-59) U/L ALT 21 (4-49) U/L Alkaline Phosphatase 118 (38-126) U/L Troponin I (0.000-0.034) ng/mL Total Protein 6.9 (6.3-8.2) g/dL Albumin 3.3 L (3.5-5.0) g/dL 06/09/22 Range/Units 06:40 WBC (3.8-10.6) k/uL RBC (4.30-5.90) m/uL Hgb (13.0-17.5) gm/dL Hct (39.0-53.0) % MCV (80.0-100.0) fL MCH (25.0-35.0) pg MCHC (31.0-37.0) g/dL RDW (11.5-15.5) % Plt Count (150-450) k/uL MPV Neutrophils % % Lymphocytes % % Monocytes % % Eosinophils % % Basophils % % Neutrophils # (1.3-7.7) k/uL Lymphocytes # (1.0-4.8) k/uL Monocytes # (0-1.0) k/uL Eosinophils # (0-0.7) k/uL Basophils # (0-0.2) k/uL PT (9.0-12.0) sec INR (<1.2) APTT (22.0-30.0) sec Sodium (137-145) mmol/L Potassium (3.5-5.1) mmol/L Chloride (98-107) mmol/L Carbon Dioxide (22-30) mmol/L Anion Gap mmol/L BUN (9-20) mg/dL Creatinine (0.66-1.25) mg/dL Est GFR (CKD-EPI)AfAm (>60 ml/min/1.73 sqM) Est GFR (CKD-EPI)NonAf (>60 ml/min/1.73 sqM) Glucose (74-99) mg/dL Calcium (8.4-10.2) mg/dL Total Bilirubin (0.2-1.3) mg/dL AST (17-59) U/L ALT (4-49) U/L Alkaline Phosphatase (38-126) U/L Troponin I <0.012 (0.000-0.034) ng/mL Total Protein (6.3-8.2) g/dL Albumin (3.5-5.0) g/dL Disposition Clinical Impression: Fall, Fracture of femoral neck, left, closed Disposition: ADMITTED IP TO THIS HOSP Condition: Fair Is patient prescribed a controlled substance at d/c from ED?: No
[2022-06-09 07:09] LABS: Albumin 3.3 g/dL (3.5-5.0); Calcium 7.9 mg/dL (8.4-10.2); Potassium 3.9 mmol/L (3.5-5.1); Total Bilirubin 0.6 mg/dL (0.2-1.3); Total Protein 6.9 g/dL (6.3-8.2)
[2022-06-09] MEDS ORDERED: FAMOTIDINE 20 MG TAB PO SCH (09:00)
--- NOTE | 2022-06-09 10:50 | P.HPOR ---
History of Present Illness H&P Date: 06/09/22 Chief Complaint: Left hip pain Patient is an 81-year-old male who presented the emergency department [facility] earlier this morning status post fall standing at [facility] where the patient resides. Patient does have a past medical history of A. fib, cancer, heart failure, COPD, dementia, GERD, hyperlipidemia. The patient did seem somewhat sedated and groggy during encounter. Patient's daughter was present during encounter and gave most of the history. Patient's daughter says patient fell early this morning was not able to get up. Patient daughter says that patient normally ambulates using a cane. Patient's daughter says patient did fall on the back of his head as well. Patient denies losing consciousness. Patient's daughter says the patient does normally takes Coumadin and is unsure when the last dose was. Patient is complaining mostly of pain in the left hip region. Patient denies pain in any other locations. Patient's daughter does say that patient had neck surgery about 10-15 years ago. Patient denies any other orthopedic surgical history. Patient's daughter says that he does follow with Dr. Hernandez for cardiology. Patient denies chest pain, fever, increasing shortness of breath, nausea, vomiting, change in vision loss of bowel/bladder control. Past Medical History Past Medical History: Atrial Fibrillation, Cancer, Heart Failure, COPD, Dementia, GERD/Reflux, Hyperlipidemia, Hypertension, Pneumonia, Prostate Disorder Additional Past Medical History / Comment(s): Pt recently admitted to [facility] on 06/28/21 with expressive dysphasia, possible acute TIA or acute stroke. Other hx: Chronic cervical pain with radiculopathy/numbness and tingling R arm/hand, chronic back pain with numbness/tingling bilateral legs, bilateral leg varicosities, kidney stone/surgically removed, BPH, insomnia, weakness, vitamin D deficiency. 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 Past Anesthesia/Blood Transfusion Reactions: No Reported Reaction Past Psychological History: No Psychological Hx Reported Smoking Status: Former smoker Past Alcohol Use History: Unable to Obtain Past Drug Use History: Unable to Obtain - Past Family History Father Additional Family Medical History / Comment(s): Father was a drinker. He at the age of 80yrs. Mother Family Medical History: No Reported History Additional Family Medical History / Comment(s): Mother was healthy and lived to b90yrs old. Daughter(s) Family Medical History: Cancer Additional Family Medical History / Comment(s): Nely had breast cancer. Brother(s) Family Medical History: Cancer Additional Family Medical History / Comment(s): Brother had melanoma skin cancer. Sister(s) Family Medical History: Cancer Additional Family Medical History / Comment(s): Sister had melanoma skin cancer. Medications and Allergies Home Medications Medication Instructions Recorded Confirmed Type dilTIAZem HCL [dilTIAZem HCL 24Hr 120 mg PO DAILY 04/04/18 06/09/22 History ER (CD)] Acetaminophen Tab [Tylenol] 650 mg PO Q6HR PRN tab 07/07/20 06/09/22 Rx Albuterol Inhaler [Ventolin Hfa 1 puff INHALATION RT-Q4H PRN 08/26/20 06/09/22 History Inhaler] Tamsulosin [Flomax] 0.4 mg PO HS 08/26/20 06/09/22 History Ipratropium-Albuterol Nebulize 3 ml INHALATION RT-Q4H PRN 06/08/21 06/09/22 History [Duoneb 0.5 mg-3 mg/3 ml Soln] Metoprolol Tartrate [Lopressor] 25 mg PO BID 06/08/21 06/09/22 History Furosemide [Lasix] 20 mg PO DAILY@0600 06/25/21 06/09/22 History Pantoprazole [Protonix] 40 mg PO DAILY@0600 06/25/21 06/09/22 History Aspirin 81 mg PO DAILY tab 06/28/21 06/09/22 Rx Atorvastatin [Lipitor] 20 mg PO HS tab 06/28/21 06/09/22 Rx Budesonide-Formot 160-4.5 Mcg 2 puff INHALATION RT-BID gm 07/21/21 06/09/22 Rx [Symbicort 160-4.5 Mcg Inhaler] Sennosides/Docusate Sodium [Senna 2 tab PO Q72H PRN 10/19/21 06/09/22 History Plus 8.6-50 mg Tablet] Warfarin [Coumadin] 5 mg PO MOTH@1700 10/19/21 06/09/22 History Cyanocobalamin [Vitamin B-12] 500 mcg PO DAILY tab 10/22/21 06/09/22 Rx Zguard 1 applic TOPICAL Q3D 11/18/21 06/09/22 History Calcium Carb-Vit D 500Mg-5Mcg 1 tab PO BID 06/09/22 06/09/22 History [Oscal 500+D 5 Mcg (200 Iu)] Menthol [Biofreeze] 1 applic TOPICAL QID PRN 06/09/22 06/09/22 History Optifoam 1 applic TOPICAL Q3D 06/09/22 06/09/22 History Warfarin [Coumadin] 3 mg PO SUTUWESA@1700 06/09/22 06/09/22 History Allergies Allergy/AdvReac Type Severity Reaction Status Date / Time No Known Allergies Allergy Verified 06/09/22 07:21 Physical Examination Osteopathic Statement: *. No significant issues noted on an osteopathic structural exam other than those noted in the History and Physical/Consult. Inspection: Left leg is shortened and externally rotated. There is some ecchymosis present along the left lateral hip as well as the left elbow. Contusion present on the occiput. Negative for any open fractures. Negative for any ulcers. Small abrasion present on left elbow. Sensation: Sensation is equal, symmetric, bilaterally intact throughout the upper and lower extremity. Range of motion: Patient does have a range of motion in left hip in flexion extension and left knee in flexion and extension due to injury/pain. Patient is able to wiggle digits in bilateral lower extremities on exam. Patient does have full range of motion right lower extremity in knee flexion/extension and right hip flexion/extension. Patient has full range of motion bilateral upper extremities on exam Motor: 4+/5 in all major motor groups in bilateral upper extremities and right lower extremity on exam. Left lower extremity exam limited due to injury. Palpation: Some mild tenderness to palpation along the left elbow. Significant tenderness to patient diffusely over the left hip. Neurovascular status: Radial pulse intact, 2+ bilaterally. Cap refill under 3 seconds in digits of her extremities. Dorsalis pedis pulse present, weak Special tests: Negative Homans bilaterally. Pain with external/internal rotation of left hip Results - Labs Labs: Abnormal Lab Results - Last 24 Hours (Table) 06/09/22 06/09/22 Range/Units 06:40 06:40 PT 19.1 H (9.0-12.0) sec INR 1.9 H (<1.2) BUN 22 H (9-20) mg/dL Creatinine 1.28 H (0.66-1.25) mg/dL Glucose 103 H (74-99) mg/dL Calcium 7.9 L (8.4-10.2) mg/dL Albumin 3.3 L (3.5-5.0) g/dL H & H 06/09/22 Range/Units 06:40 Hgb 13.3 (13.0-17.5) gm/dL Hct 39.6 (39.0-53.0) % Coagulation 06/09/22 Range/Units 06:40 INR 1.9 H (<1.2) Result Diagrams: 06/09/22 06:40 06/09/22 06:40 - Diagnostic results Hip x-ray: report reviewed, image reviewed (X-ray of the pelvis reveals femoral neck fracture on the left hip.) Assessment and Plan Assessment: 1. Left hip femoral neck fracture status post fall 2. Multiple medical comorbidities Plan: 1. Left hip femoral neck fracture - patient at bedside this morning in the emergency department. X-ray of the pelvis does demonstrate left hip femoral neck fracture. I did discuss the findings with family at bedside. At this time we are recommending surgical intervention in the form of left hip hemiarthr oplasty. Surgery has been scheduled for tomorrow, 06/10/2022. Patient to be nothing by mouth beginning midnight tonight. Patient does need cardiac/medical clearance. Withhold thinners at this time. Nonweightbearing left lower extremity. Pain medication as needed. We'll continue to follow patient during his stay in hospital. 2. Appreciate medical and cardiac management - needs surgical clearance. patient does normally Coumadin. 3. Pain management - tylenol; morphine 4. DVT prophylaxis - withhold thinners at this time 5. GI prophylaxis - Pepcid 6. PT/OT - nonweightbearing left lower extremity Agree with above findings. I saw and examined the patient with Daughter at bedside. Patient is very lethargic and non verbal. Risks of surgery were discussed with the daughter at length including bleeding, infection, damage to surrounding tissue, need for further surgery, DVT, PE and even and they wish to go forward with surgery. Pending medical clearance he is scheduled for a left hip hemiarthroplasty 06/10/22. -Freddy Barnett DO Orthopedic Surgeon Time with Patient: Less than 30
--- NOTE | 2022-06-09 11:00 | P.CRDCN ---
History of Present Illness Consult date: 06/09/22 History of present illness: History of Present Illness: The patient is an 81-year-old male who resides at [facility] on the [place] who presented after a fall and hip discomfort. He was found to have left femoral neck fracture and is being evaluated for surgical intervention. He has a known history of chronic persistent atrial fibrillation, followed in the past with Dr. Hernandez, seen last time in July 2020 in the office. He has been anticoagulated in the past. There is no documentation of ischemic heart disease or congestive heart failure. The patient opened his eyes to verbal stimulation but does not verbalize. I am not able to get any history from him. According to the records he has a history of hypertension, hyperlipidemia and abdominal aortic aneurysm. His left ventricle systolic function in the past was normal. By history the patient has a history of dementia. A computed tomography scan of the head showed no acute process, x-ray of the hip showed impacted subcapital left femoral neck fracture with no dislocation. Medications: Cardizem 120 mg daily, Lopressor 25 mg twice a day, Lipitor 20 mg daily, Coumadin, Lasix 20 mg daily, protonic's, albuterol, Ventolin Review of Systems: Could not be obtained Physical Examination: 81-year-old male, nonverbal, opening his eyes to verbal stimulation ,Blood pressure 123/80, Heart rate 88 Head: Normocephalic. Eyes: Sclerae nonicteric. Neck: Good carotid upstroke, no bruit, no jugular venous distention. Lungs: Clear to auscultation. Heart: Irregular rate and rhythm, S1-S2, no S3, no rub. Systolic ejection murmur. Abdomen: Soft nontender, positive bowel sounds no organomegaly. Extremities: No edema, intact distal pulses, presentation of left lower extremity. Labs: INR 1.9, hemoglobin 13.3, BUN 22, creatinine 1.28, troponin less than 0.012 EKG: Depending Impression: 1. Status post fall and left femoral neck fracture, scheduled for surgery tomorrow 2. History of chronic persistent atrial fibrillation, anticoagulated 3. Prior history of dementia 4. History of hypertension 5. History of hyperlipidemia Plan: 1. Hold Coumadin 2. Obtain an echocardiogram with Doppler 3. Resume beta olvin and statin 4. The patient is at an increased risk for surgical intervention but no prohib itive risk in view of the absence of acute coronary syndrome or CHF. 5. Depending on his progress further recommendations will be made, thank you for this consult we will follow with you. Past Medical History Past Medical History: Atrial Fibrillation, Cancer, Heart Failure, COPD, Dementia, GERD/Reflux, Hyperlipidemia, Hypertension, Pneumonia, Prostate Disor luis Additional Past Medical History / Comment(s): Pt recently admitted to [facility] on 06/28/21 with expressive dysphasia, possible acute TIA or acute stroke. Other hx: Chronic cervical pain with radiculopathy/numbness and tingling R arm/hand, chronic back pain with numbness/tingling bilateral legs, bilateral leg varicosities, kidney stone/surgically removed, BPH, insomnia, weakness, vitamin D deficiency. 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 Past Anesthesia/Blood Transfusion Reactions: No Reported Reaction Past Psychological History: No Psychological Hx Reported Smoking Status: Former smoker Past Alcohol Use History: Unable to Obtain Past Drug Use History: Unable to Obtain - Past Family History Father Additional Family Medical History / Comment(s): Father was a drinker. He at the age of 80yrs. Mother Family Medical History: No Reported History Additional Family Medical History / Comment(s): Mother was healthy and lived to b90yrs old. Daughter(s) Family Medical History: Cancer Additional Family Medical History / Comment(s): Nely had breast cancer. Brother(s) Family Medical History: Cancer Additional Family Medical History / Comment(s): Brother had melanoma skin cancer. Sister(s) Family Medical History: Cancer Additional Family Medical History / Comment(s): Sister had melanoma skin cancer. Medications and Allergies Home Medications Medication Instructions Recorded Confirmed Type dilTIAZem HCL [dilTIAZem HCL 24Hr 120 mg PO DAILY 04/04/18 06/09/22 History ER (CD)] Acetaminophen Tab [Tylenol] 650 mg PO Q6HR PRN tab 07/07/20 06/09/22 Rx Albuterol Inhaler [Ventolin Hfa 1 puff INHALATION RT-Q4H PRN 08/26/20 06/09/22 History Inhaler] Tamsulosin [Flomax] 0.4 mg PO HS 08/26/20 06/09/22 History Ipratropium-Albuterol Nebulize 3 ml INHALATION RT-Q4H PRN 06/08/21 06/09/22 History [Duoneb 0.5 mg-3 mg/3 ml Soln] Metoprolol Tartrate [Lopressor] 25 mg PO BID 06/08/21 06/09/22 History Furosemide [Lasix] 20 mg PO DAILY@0600 06/25/21 06/09/22 History Pantoprazole [Protonix] 40 mg PO DAILY@0600 06/25/21 06/09/22 History Aspirin 81 mg PO DAILY tab 06/28/21 06/09/22 Rx Atorvastatin [Lipitor] 20 mg PO HS tab 06/28/21 06/09/22 Rx Budesonide-Formot 160-4.5 Mcg 2 puff INHALATION RT-BID gm 07/21/21 06/09/22 Rx [Symbicort 160-4.5 Mcg Inhaler] Sennosides/Docusate Sodium [Senna 2 tab PO Q72H PRN 10/19/21 06/09/22 History Plus 8.6-50 mg Tablet] Warfarin [Coumadin] 5 mg PO MOTH@1700 10/19/21 06/09/22 History Cyanocobalamin [Vitamin B-12] 500 mcg PO DAILY tab 10/22/21 06/09/22 Rx Zguard 1 applic TOPICAL Q3D 11/18/21 06/09/22 History Calcium Carb-Vit D 500Mg-5Mcg 1 tab PO BID 06/09/22 06/09/22 History [Oscal 500+D 5 Mcg (200 Iu)] Menthol [Biofreeze] 1 applic TOPICAL QID PRN 06/09/22 06/09/22 History Optifoam 1 applic TOPICAL Q3D 06/09/22 06/09/22 History Warfarin [Coumadin] 3 mg PO SUTUWESA@1700 06/09/22 06/09/22 History Allergies Allergy/AdvReac Type Severity Reaction Status Date / Time No Known Allergies Allergy Verified 06/09/22 07:21 Physical Exam Vitals: Vital Signs Temp Pulse Resp BP Pulse Ox 12/30/22 05:19 98.4 F 88 20 123/80 89 L Intake and Output 06/08/22 06/09/22 06/09/22 22:59 06:59 14:59 Other: Weight 72.575 kg Results 06/09/22 06:40 06/09/22 06:40 Cardiac Enzymes 06/09/22 06/09/22 Range/Units 06:40 06:40 AST 38 (17-59) U/L Troponin I <0.012 (0.000-0.034) ng/mL Coagulation 06/09/22 Range/Units 06:40 PT 19.1 H (9.0-12.0) sec APTT 28.9 (22.0-30.0) sec CBC 06/09/22 Range/Units 06:40 WBC 5.7 (3.8-10.6) k/uL RBC 4.65 (4.30-5.90) m/uL Hgb 13.3 (13.0-17.5) gm/dL Hct 39.6 (39.0-53.0) % Plt Count 225 (150-450) k/uL Comprehensive Metabolic Panel 06/09/22 Range/Units 06:40 Sodium 137 (137-145) mmol/L Potassium 3.9 (3.5-5.1) mmol/L Chloride 104 (98-107) mmol/L Carbon Dioxide 29 (22-30) mmol/L BUN 22 H (9-20) mg/dL Creatinine 1.28 H (0.66-1.25) mg/dL Glucose 103 H (74-99) mg/dL Calcium 7.9 L (8.4-10.2) mg/dL AST 38 (17-59) U/L ALT 21 (4-49) U/L Alkaline Phosphatase 118 (38-126) U/L Total Protein 6.9 (6.3-8.2) g/dL Albumin 3.3 L (3.5-5.0) g/dL Current Medications Generic Name Dose Route Start Last Admin Trade Name Freq PRN Reason Stop Dose Admin Acetaminophen 650 mg 06/09/22 07:00 Acetaminophen Tab 325 Mg Tab PO Q6HR PRN Mild Pain or Fever > 100.5 Al Hydroxide/Mg Hydroxide 15 ml 06/09/22 07:00 Mag Hydrox/Al Hydrox/Simeth 30 Ml Cup PO Q6HR PRN Indigestion Famotidine 20 mg 06/10/22 09:00 Famotidine 20 Mg Tab PO DAILY DAWNA Sodium Chloride 1,000 mls @ 75 mls/hr 06/09/22 07:00 06/09/22 09:37 Saline 0.9% IV 75 mls/hr .[id number] DAWNA Administration Morphine Sulfate 4 mg 06/09/22 07:00 Morphine Sulfate 4 Mg/Ml Syringe IV Q4HR PRN Severe Pain (Scale 7 to 10) Naloxone HCl 0.2 mg 06/09/22 07:00 Naloxone 0.4 Mg/Ml 1 Ml Vial IV Q2M PRN Opioid Reversal Intake and Output 06/08/22 06/09/22 06/09/22 22:59 06:59 14:59 Other: Weight 72.575 kg 06/09/22 06:40 06/09/22 06:40
[2022-06-09] MEDS ORDERED: ALBUTEROL HFA INHALER INHALATION PRN (11:51)
[2022-06-09] MEDS: METOPROLOL TARTRATE 25 MG TAB PO SCH ×2 (14:31→22:08)
[2022-06-09] MEDS: IPRATROPIUM-ALBUTEROL 3 ML NEB INHALATION PRN ×2 (16:46→19:17)
[2022-06-09] MEDS: SYMBICORT 160-4.5 MCG INHALER INHALATION SCH (19:17)
[2022-06-09] MEDS: ACETAMINOPHEN TAB 325 MG TAB PO PRN (22:07)
[2022-06-09] MEDS: ATORVASTATIN 20 MG TAB PO SCH (22:08)
[2022-06-09] MEDS: TAMSULOSIN 0.4 MG CAP.ER.24H PO SCH (22:08)
[2022-06-09] MEDS: SODIUM CHLORIDE 0.9% 1,000 ML IV SCH (22:14)
--- NOTE | 2022-06-09 22:35 | P.CONS ---
History of Present Illness - Reason for Consult Consult date: 06/09/22 Medical management - Chief Complaint Left hip fracture s/p fall - History of Present Illness Patient is a 81-year-old male who is currently resides at [facility] on the [facility] and brought to the hospital status post fall and left hip pain. Patient does have a history of chronic atrial fibrillation on anticoagulation with Coumadin, EPS with ablation, chronic CHF with mildly reduced systolic fun ction ejection fraction 45 to 50%, COPD, history of facial carcinoma removed, hypertension, hyperlipidemia, GERD, pneumonia, BPH, and cognitive impairment and prior history of smoking. Patient was complaining of severe hip pain on admission. After the fall patient is not able to get back up. He was trying to use a walker to walk but then fell. Patient usually ambulates with a cane as per her daughter. Patient did fall on the back of his head but denies any loss of consciousness. Patient was given IV morphine and IM morphine in the ER. Currently patient is not arousable but usually communicates with the family at baseline. Hip x-ray showed impacted subcapital left femoral neck fracture. No left hip dislocation. CT head showed no acute intracranial process. Chest x-ray showed no acute pulmonary process. Laboratory pressure WBC 5.7 hemoglobin 13.3 and platelets 225 INR 1.9 Sodium 137 potassium 3.9 chloride 104 bicarb is 29 BUN 2020 creatinine 1.28, blood sugar 103 calcium 7.9 [place] is not elevated albumin 3.3. Baseline creatinine level 0.97. Review of Systems Complete review of systems could not be obtained from the patient except as per HPI. Past Medical History Past Medical History: Atrial Fibrillation, Cancer, Heart Failure, COPD, Dementia, GERD/Reflux, Hyperlipidemia, Hypertension, Pneumonia, Prostate Disorder Additional Past Medical History / Comment(s): Pt recently admitted to [facility] on 06/28/21 with expressive dysphasia, possible acute TIA or acute stroke. Other hx: Chronic cervical pain with radiculopathy/numbness and tingling R arm/hand, chronic back pain with numbness/tingling bilateral legs, bilateral leg varicosities, kidney stone/surgically removed, BPH, insomnia, weakness, vitamin D deficiency. 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 Past Anesthesia/Blood Transfusion Reactions: No Reported Reaction Past Psychological History: No Psychological Hx Reported Smoking Status: Former smoker Past Alcohol Use History: Unable to Obtain Past Drug Use History: Unable to Obtain - Past Family History Father Additional Family Medical History / Comment(s): Father was a drinker. He at the age of 80yrs. Mother Family Medical History: No Reported History Additional Family Medical History / Comment(s): Mother was healthy and lived to b90yrs old. Daughter(s) Family Medical History: Cancer Additional Family Medical History / Comment(s): Neyl had breast cancer. Brother(s) Family Medical History: Cancer Additional Family Medical History / Comment(s): Brother had melanoma skin cancer. Sister(s) Family Medical History: Cancer Additional Family Medical History / Comment(s): Sister had melanoma skin cancer. Medications and Allergies Home Medications Medication Instructions Recorded Confirmed Type dilTIAZem HCL [dilTIAZem HCL 24Hr 120 mg PO DAILY 04/04/18 06/09/22 History ER (CD)] Acetaminophen Tab [Tylenol] 650 mg PO Q6HR PRN tab 07/07/20 06/09/22 Rx Albuterol Inhaler [Ventolin Hfa 1 puff INHALATION RT-Q4H PRN 08/26/20 06/09/22 History Inhaler] Tamsulosin [Flomax] 0.4 mg PO HS 08/26/20 06/09/22 History Ipratropium-Albuterol Nebulize 3 ml INHALATION RT-Q4H PRN 06/08/21 06/09/22 History [Duoneb 0.5 mg-3 mg/3 ml Soln] Metoprolol Tartrate [Lopressor] 25 mg PO BID 06/08/21 06/09/22 History Furosemide [Lasix] 20 mg PO DAILY@0600 06/25/21 06/09/22 History Pantoprazole [Protonix] 40 mg PO DAILY@0600 06/25/21 06/09/22 History Aspirin 81 mg PO DAILY tab 06/28/21 06/09/22 Rx Atorvastatin [Lipitor] 20 mg PO HS tab 06/28/21 06/09/22 Rx Budesonide-Formot 160-4.5 Mcg 2 puff INHALATION RT-BID gm 07/21/21 06/09/22 Rx [Symbicort 160-4.5 Mcg Inhaler] Sennosides/Docusate Sodium [Senna 2 tab PO Q72H PRN 10/19/21 06/09/22 History Plus 8.6-50 mg Tablet] Warfarin [Coumadin] 5 mg PO MOTH@1700 10/19/21 06/09/22 History Cyanocobalamin [Vitamin B-12] 500 mcg PO DAILY tab 10/22/21 06/09/22 Rx Zguard 1 applic TOPICAL Q3D 11/18/21 06/09/22 History Calcium Carb-Vit D 500Mg-5Mcg 1 tab PO BID 06/09/22 06/09/22 History [Oscal 500+D 5 Mcg (200 Iu)] Menthol [Biofreeze] 1 applic TOPICAL QID PRN 06/09/22 06/09/22 History Optifoam 1 applic TOPICAL Q3D 06/09/22 06/09/22 History Warfarin [Coumadin] 3 mg PO SUTUWESA@1700 06/09/22 06/09/22 History Allergies Allergy/AdvReac Type Severity Reaction Status Date / Time No Known Allergies Allergy Verified 06/09/22 07:21 Physical Exam Vitals: Vital Signs Temp Pulse Resp BP Pulse Ox 06/09/22 05:19 98.4 F 88 20 123/80 89 L Intake and Output 06/08/22 06/09/22 06/09/22 22:59 06:59 14:59 Other: Weight 72.575 kg PHYSICAL EXAMINATION: Patient is lying in the bed sleeping comfortably. On room air. Opens his eyes with verbal stimulation. Patient is nonverbal. HEENT: Normocephalic. Neck is supple. Pupils reactive. Nostrils clear. Oral cavity is moist. Neck reveals no JVD, carotid bruits, or thyromegaly. CHEST EXAMINATION: Trachea is central. Symmetrical expansion. Lung hankins clear to auscultation and percussion. CARDIAC: Normal S1, S2 with no gallops. No murmurs ABDOMEN: Soft. Bowel sounds present. Nontender. No organomegaly. No abdominal bruits. Extremities: reveal no edema. No clubbing or cyanosis Left lower extremity is externally rotated. Neurologically patient is currently sedated and drowsy. No gross focal deficits noted Skin: No rash or skin lesions. Psychiatric: Could not be assessed at this time. , Musculoskeletal: No joint swelling . Left hip decreased range of motion. Results CBC & Chem 7: 06/09/22 06:40 06/09/22 06:40 Labs: Abnormal Lab Results - Last 24 Hours (Table) 06/09/22 06/09/22 Range/Units 06:40 06:40 PT 19.1 H (9.0-12.0) sec INR 1.9 H (<1.2) BUN 22 H (9-20) mg/dL Creatinine 1.28 H (0.66-1.25) mg/dL Glucose 103 H (74-99) mg/dL Calcium 7.9 L (8.4-10.2) mg/dL Albumin 3.3 L (3.5-5.0) g/dL Assessment and Plan Assessment: Status post fall and left hip femoral neck impacted fracture. No hip dislocation. Chronic atrial fibrillation on anticoagulation with Coumadin History of EPS with ablation chronic CHF with mildly reduced systolic function ejection fraction 45 to 50%. Acute kidney injury likely prerenal. Baseline creatinine 0.9. Hypertension Hyperlipidemia Dementia BPH GERD History of facial cancer removed Chronic cervical pain with radiculopathy Chronic back pain Prior history of smoking DVT prophylaxis. Plan: Patient will be continued on telemetry monitoring. Continue with metoprolol and statins. Aspirin, Coumadin and Lasix is on hold. Continue duo nebs and Symbicort inhalation. Patient denies any complaints of chest pain or shortness of breath as per ER note.. No prior history of CVA. Patient is 6%, 30-day risk of [place] or cardiac arrest for low risk orthopedic surgery. Will continue to follow and further recommendations based on clinical course. Addendum. Patient is more awake and oriented today evening. Continue with current m anagement and patient is scheduled for left hip orthopedic surgery tomorrow morning. Time with Patient: Greater than 30
[2022-06-09 23:15] LABS: Appearance,Urine Turbid (Clear); Bacteria,Urine Moderate /hpf; Bilirubin,Urine Negative (Negative); Blood,Urine Moderate (Negative); Color,Urine Yellow; Glucose,Urine (UA) Negative (Negative); Ketones,Urine Trace (Negative); Leukocyte Esterase,Urine Large (Negative); Nitrite,Urine Negative (Negative); Protein,Urine 2+ (Negative); RBC,Urine 13 /hpf (0-5); Squamous Epithelial Cell,Urine 3 /hpf (0-4); Urobilinogen,Urine <2.0 mg/dL (<2.0); WBC,Urine >182 /hpf (0-5)
[2022-06-10] MEDS: ACETAMINOPHEN TAB 325 MG TAB PO PRN ×2 (05:48→12:30)
[2022-06-10] MEDS: PANTOPRAZOLE 40 MG TABLET PO SCH (05:55)
[2022-06-10 07:21] LABS: African American GFR (CKD) 86 (>60 ml/min/1.73 sqM); Anion Gap 5 mmol/L; Blood Urea Nitrogen 20 mg/dL (9-20); Calcium 7.4 mg/dL (8.4-10.2); Carbon Dioxide 29 mmol/L (22-30); Chloride 105 mmol/L (98-107); Glucose 96 mg/dL (74-99); Non-African American GFR(CKD) 74 (>60 ml/min/1.73 sqM); Potassium 3.8 mmol/L (3.5-5.1); Sodium 139 mmol/L (137-145)
[2022-06-10] MEDS: FAMOTIDINE 20 MG TAB PO SCH (07:59)
[2022-06-10] MEDS ORDERED: VASOPRESSIN 20 UNIT/ML 1 ML VIAL ONE (08:10)
[2022-06-10] MEDS ORDERED: fentaNYL (PF) 50 MCG/ML 2 ML AMP ONE (08:10)
[2022-06-10] MEDS ORDERED: LIDOCAINE 2% INJ 20 MG/ML (2 ML VIAL) ONE (08:10)
[2022-06-10] MEDS ORDERED: ceFAZolin 1,000 MG VIAL ONE (08:10)
[2022-06-10] MEDS ORDERED: WATER FOR INJECTION, STERILE 10 ML VIAL IV ONE (08:10)
[2022-06-10] MEDS ORDERED: PROPOFOL 10 MG/ML 20 ML VIAL IV ONE (08:10)
[2022-06-10] MEDS ORDERED: ePHEDrine 50 MG/ML 1 ML VIAL ONE (08:10)
[2022-06-10] MEDS ORDERED: SUCCINYLCHOLINE CHLORIDE 200 MG/10 ML VIAL IV ONE (08:10)
[2022-06-10] MEDS ORDERED: PHENYLEPHRINE-0.9% NACL SYG 1,000 MCG/10 ML SYRINGE ONE (08:10)
[2022-06-10] MEDS ORDERED: IV FLUID CONTINUATION 1,000 ML IV ONE (08:15)
[2022-06-10] MEDS ORDERED: SODIUM CHLORIDE 0.9% 100 ML with ceFAZolin 2,000 MG IV ONE ×2 (08:15)
[2022-06-10] MEDS ORDERED: ceFAZolin 1,000 MG in SODIUM CHLORIDE 0.9% 1,000 ML IRRIGATION ONE (08:34)
[2022-06-10] MEDS: SYMBICORT 160-4.5 MCG INHALER INHALATION SCH ×2 (09:13→19:23)
[2022-06-10] MEDS ORDERED: LACTATED RINGERS 1,000 ML IV ONE (09:19)
[2022-06-10] MEDS ORDERED: HYDROcodone/APAP 7.5-325MG 1 EACH TAB PO PRN (10:45)
[2022-06-10] MEDS ORDERED: NALOXONE 0.4 MG/ML 1 ML VIAL IV PRN (10:45)
[2022-06-10 11:19] LABS: Basophils # (A) 0.04 X 10*3/uL (0.00-0.10); Basophils % (A) 0.6 %; Eosinophils # (A) 0.25 X 10*3/uL (0.04-0.35); Eosinophils % (A) 3.7 %; HCT 38.1 % (39.6-50.0); HGB 11.8 g/dL (13.0-17.0); Immature Grans, Automated 0.6 %; Lymphocytes # (A) 1.71 X 10*3/uL (0.90-5.00); Lymphocytes % (A) 25.5 %; MCH 26.7 pg (27.0-32.0); MCV 86.2 fL (80.0-97.0); Mean Platelet Volume 9.9 fL (9.5-12.2); Monocytes # (A) 0.78 X 10*3/uL (0.20-1.00); Monocytes % (A) 11.6 %; NRBC Per 100 WBC 0 /100 WBCS (0.0-0.0); Neutrophils # (A) 3.88 X 10*3/uL (1.80-7.70); Platelet Count 213 X 10*3/uL (140-440); RBC 4.42 X 10*6/uL (4.40-5.60); RDW 16.2 % (11.5-14.5)
--- NOTE | 2022-06-10 11:46 | P.OP ---
Date of Procedure: 06/10/22 Preoperative Diagnosis: 1.) Left hip femoral neck fracture Postoperative Diagnosis: 1.) Left hip femoral neck fracture Procedure(s) Performed: 1.) Left hip hemiarthroplasty for femoral neck fracture Implants: 1.)Danby Accolade II femoral stem, neck angle 132, size 5, 35mm neck length. 2.)Danby V40 Femoral head 28mm OD, -4 offset. 3.)Danby UHR [place] head Bipolar Component, OD 52mm. Anesthesia: MARILEEA Surgeon: Freddy Barnett Ornamental Metal Fabricator Apprentice #1: Shahana Menchaca Estimated Blood Loss (ml): 200 Pathology: none sent Condition: stable Disposition: PACU Description of Procedure: This is a 81 year old male with multiple medical comorbidities who presented s/p fall from standing on to their left hip with inability to ambulate and pain in their hip. The patient was evaluated in the ED and admitted to the hospital with medical clearance for surgical intervention. Risks and benefits of surgery including bleeding, damage to surrounding tissue, infection, need for further surgery as well as risks of anesthesia including DVT pulmonary embolism and even and the patient wished to proceed with surgical intervention. The patient was seen in the pre-operative area by myself. Consent and H&P were completed and updated. The correct extremity was marked in the pre-operative area by myself and all other question were answered. Operative narrative: The patient was brought to the operating room by the department of anesthesia. General anesthesia was performed by the department of anesthesia. The patient was then transferred carefully to the operative table and placed in the lateral position with an axillary role placed in the contralateral arm-pit region and the patient was secured in the lateral position with the aid of a pegboard with the hip perpendicular to the floor. All bony prominences were well padded. The left lower extremity was then prepped and draped in normal sterile fashion. Pre-operative time out was performed indicating the correct patient, procedure and laterality. All in the room agreed. Pre-operative antibiotics were given prior to skin incision. A curvilinear incision was made with a 10-blade scalpel on the lateral aspect of the hip, slightly posterior to the greater trochanter and carried distally towards the axis of the femoral shaft to initiate the posterior approach to the hip joint. Bovie cautery was used for meticulous hemostasis and dissection was then taken down to the tensor fascia. Tensor fascia was incised distally and extended proximally to the gluteus josr muscle. Blunt finger dissection was then used to split the gluteus josr muscle in its natural plane. Charnley retractor was then placed deep to the tensor fascia and gluteus josr to unveil the trochanteric bursa. Bursa was sharply incised taking care to protect the sciatic nerve posteriorly. The short external rotators were then identified. Christa retractor was then placed between the gluteus medius and piriformis tendon. The piriformis tendon and short external rotators were then tagged with a #5 Ethibond suture. Using bovie cautery the short external rotators were then incised off of their julien insertion at the piriformis fossa and reflected posteriorly to protect the sciatic nerve. The posterior hip capsule was then incised in a L shaped fashion along the superior portion of the femoral neck taking care to stay on bone. Fracture hematoma was then evacuated, the femoral head was the extracted with a corkscrew and sized to a 52. The acetabulum was then thoroughly irrigated and all fracture fragments were debrided and removed and the labrum was intact with no signs of acetabular arthritis. Size 52 head on a stick was then placed into the acetabulum with good suction and appropriate fit and decision was made to go forward with a size 52 outer diameter head. Further remnants of the external rotator insertion were debrided form the piriformis fossa and femoral elevator and [place] retractor was used to elevate the femur. A touch up neck was performed 1.5cm proximal to the lesser trochanter. Box osteotome was then utilized to gain entrance into the medullary canal taking care to stay lateralized. Axial canal finder was then inserted down the femoral shaft again keeping lateral pressure upon insertion. Sequential femoral broaching was then performed starting with a size 0 broach up to a size 5 which appeared to have a solid fit. A standard length neck and 0 offset femoral head was trialed. The hip was reduced and leg lengths were checked and found to be acceptable. The hip appeared to have good stability. The hip was then dislocated and the stem was found to be intact with good fit still after trialing. Final implants were then selected including a size 5, 132 degree neck femoral stem with a 52 outer diameter bipolar head and a -4 offset which was assembled and inserted into the femoral canal with lateral pressure to avoid varus placement. The hip was then reduced and ranged again and was stable with appropriate tensioning and leg lengths. A 2.7 drill bit was then used to drill 2 holes in the posterior aspect of the greater trochanter. The previously tagged short external rotators and capsule were then passed through the drill holes with a suture passer and the hip was then abducted and externally rotated to take pressure off of the short external rotators and capsular repair. The #5 Ethibond sutures were then tied with appropriate tension and a solid repair of the external rotators and posterior capsule was able to be achieved. IT band was then closed with locking #1 Vicryl sutures. Subcutaneous closure was performed with 0 Vicryl followed by 2-0 Vicryl and fredi for closure of skin. A sterile Optifoam dressing was then applied to the incision. The patient was then woken by the department of anesthesia and transferred back to the hospital bed and transported to PACU in stable condition. All needle and instrument counts were correct at the end of the proc edure. Shahana Ryan NP was present for the case to assist in manipulation of the hip, retraction, placement of implants and closure. Freddy Barntet DO Orthopedic Surgeon
[2022-06-10] MEDS ORDERED: METOPROLOL TARTRATE 12.5 MG TAB PO STA (12:12)
[2022-06-10] MEDS: METOPROLOL TARTRATE 25 MG TAB PO SCH (12:12)
[2022-06-10 12:22] LABS: INR 2.34 (0.90-1.11); Prothrombin Time 25.6 sec (9.9-11.9)
--- NOTE | 2022-06-10 13:08 | XR ---
EXAMINATION TYPE: XR Hip Limited LT DATE OF EXAM: 06/10/2022 12:27 PM INDICATION: Patient age:Male; 81 years old; Reason for study: Post-Op left hip Hemiarthroplasty;. COMPARISON: Pre-op radiographs. TECHNIQUE: The left hip was examined in the frontal and lateral projections FINDINGS: Post arthroplasty changes, hardware is intact, alignment is appropriate. No evidence of fra cture. Postoperative changes soft tissue. No evidence of any acute osseous pathology or joint disloca tion. IMPRESSION: Total hip arthroplasty with hardware intact and in appropriate alignment. No acute fracture.
[2022-06-10] MEDS: IPRATROPIUM-ALBUTEROL 3 ML NEB INHALATION PRN (13:22)
[2022-06-10] MEDS: HYDROcodone/APAP 5-325MG 1 EACH TAB PO PRN (15:04)
--- NOTE | 2022-06-10 17:11 | P.PN ---
Subjective Progress Note Date: 06/10/22 Patient is a 81-year-old male who is currently resides at [facility] on the [facility], [place] and brought to the hospital status post fall and left hip pain. Patient does have a history of chronic atrial fibrillation on anticoagulation with Coumadin, EPS with ablation, chronic CHF with mildly reduced systolic function ejection fraction 45 to 50%, COPD, history of facial carcinoma removed, hypertension, hyperlipidemia, GERD, pneumonia, BPH, and cognitive impairment and prior history of smoking. Patient was complaining of severe hip pain on admission. After the fall patient is not able to get back up. He was trying to use a walker to walk but then fell. Patient usually ambulates with a cane as per her daughter. Patient did fall on the back of his head but denies any loss of consciousness. Patient was given IV morphine and IM morphine in the ER. Currently patient is not arousable but usually communicates with the family at baseline. Hip x-ray showed impacted subcapital left femoral neck fracture. No left hip dislocation. CT head showed no acute intracranial process. Chest x-ray showed no acute pulmonary process. Laboratory pressure WBC 5.7 hemoglobin 13.3 and platelets 225 INR 1.9 Sodium 137 potassium 3.9 chloride 104 bicarb is 29 BUN 2020 creatinine 1.28, blood sugar 103 calcium 7.9 [place] is not elevated albumin 3.3. Baseline creatinine level 0.97. 06/10/2022 Patient is evaluated today postoperative left hip hemiarthroplasty for femoral neck fracture with Dr. Barnett. Reports minimal pain. He is resting in bed with family at bedside. Indwelling catheter has been inserted overnight. Pending evaluation by PT/OT. INR today 2.34 and he is resumed on warfarin. Preoperative urinalysis showing turbid urine with moderate blood, large leukocyte esterase, many WBCs, moderate bacteria. Urine culture is requested. He denies any dysuria urgency burning. Remains afebrile. Blood pressure on the lower side low 100s to 90s systolic however heart rate in the high 90s. He is maintained on metoprolol BID. Creatinine improved to 0.96. Review of Systems Constitutional: Denied any fatigue denied any fever. Cardio vascular: denied any chest pain, palpitations Gastrointestinal: denied any nausea, vomiting, diarrhea Pulmonary: Denied any shortness of breath cough Neurologic denied any new focal deficits All inpatient medications were reviewed and appropriate changes in these medications as dictated in the interval history and assessment and plan. PHYSICAL EXAMINATION: GENERAL: The patient is alert and oriented x3, not in any acute distress. Well developed, well nourished. on 3L nasal cannula HEENT: Pupils are round and equally reacting to light. EOMI. No scleral icterus. No conjunctival pallor. Normocephalic, atraumatic. No pharyngeal erythema. No thyromegaly. CARDIOVASCULAR: S1 and S2 present. No murmurs, rubs, or gallops. PULMONARY: Coarse scattered rhonchi ABDOMEN: Soft, nontender, nondistended, normoactive bowel sounds. No palpable organomegaly. MUSCULOSKELETAL: No joint swelling or deformity. EXTREMITIES: No cyanosis, clubbing, or pedal edema. NEUROLOGICAL: Gross neurological examination did not reveal any focal deficits. SKIN: No rashes. Post surgical left him dressing in place. Assessment and Plan Assessment Status post fall and left hip femoral neck impacted fracture. No hip dislocation. postoperative surgical repair today Chronic atrial fibrillation on anticoagulation with Coumadin Chronic hypoxic respiratory failure with oxygen as needed currently on 3L nasal cannula History of EPS with ablation chronic CHF with mildly reduced systolic function ejection fraction 45 to 50%. Acute kidney injury likely prerenal. Baseline creatinine 0.9, resolved. Hypertension Currently low normal blood pressure. History of COPD no acute exacerbation at this time History of TIA Hyperlipidemia Dementia BPH GERD History of facial cancer removed Chronic cervical pain with radiculopathy Chronic back pain Prior history of smoking DVT prophylaxis on warfarin INR today 2.3 Do Not Resuscitate/Do Not Intubate Plan: Discussed with orthopedics warfarin can be resumed this evening first dose at 2300. Echocardiogram is pending, cardiology following. Patient will be continued on telemetry monitoring. Metoprolol decreased to 12.5 mg BID Continue duo nebs and Symbicort inhalation. Patient is 6%, 30-day risk of [place] or cardiac arrest for low risk orthopedic bert ramon. Encourage incentive spirometry PT/OT consultation pending at this time Will continue to follow and further recommendations based on clinical course. Return to [facility] on discharge The impression and plan of care has been dictated by Nurse Bernie Pr actitioner as directed. Dr. Nita MD I have performed a history and physical examination and medical decision making of this patient, discussed the same with the dictator, and agree with the dicta tors assessment and plan as written, documented as a scribe. Based on total visit time, I have performed more than 50% of this visit. Objective - Vital Signs Vital signs: Vital Signs Temp 97.6 F 06/10/22 07:15 Pulse 86 06/10/22 07:15 Resp 17 06/10/22 07:15 BP 101/67 06/10/22 07:15 Pulse Ox 99 06/10/22 07:15 FiO2 Intake & Output 06/09/22 06/10/22 06/10/22 18:59 06:59 18:59 Intake Total 0 240 1001 Output Total 0 Balance 0 240 1001 Weight 72.575 kg Intake: IV 1001 Intake, IV Titration 240 Amount Sodium Chloride 0.9% 1, 240 000 ml @ 20 mls/hr IV . Q24H [facility] Rx#:[id number] Oral 0 Output: Urine 0 Other: Voiding Method External Catheter External Catheter Indwelling Catheter # Voids 950 - Labs CBC & Chem 7: 06/10/22 06:23 06/10/22 06:23 Labs: Abnormal Lab Results - Last 24 Hours (Table) 06/09/22 06/10/22 Range/Units 22:53 06:23 Calcium 7.4 L (8.4-10.2) mg/dL Urine Protein 2+ H (Negative) Urine Ketones Trace H (Negative) Urine Blood Moderate H (Negative) Ur Leukocyte Esterase Large H (Negative) Urine RBC 13 H (0-5) /hpf Urine WBC >182 H (0-5) /hpf Urine WBC Clumps Many H (None) /hpf Urine Bacteria Moderate H (None) /hpf Assessment and Plan Time with Patient: Less than 30
[2022-06-10] MEDS: ATORVASTATIN 20 MG TAB PO SCH (21:00)
[2022-06-10] MEDS: METOPROLOL TARTRATE 12.5 MG TAB PO SCH (21:00)
[2022-06-10] MEDS: TAMSULOSIN 0.4 MG CAP.ER.24H PO SCH (21:00)
[2022-06-10] MEDS ORDERED: WARFARIN 3 MG TAB PO ONE (23:00)
[2022-06-11] MEDS: SODIUM CHLORIDE 0.9% 1,000 ML IV SCH ×2 (05:46→17:31)
[2022-06-11] MEDS: PANTOPRAZOLE 40 MG TABLET PO SCH (07:06)
[2022-06-11] MEDS: SYMBICORT 160-4.5 MCG INHALER INHALATION SCH ×2 (07:47→20:26)
[2022-06-11] MEDS ORDERED: ENOXAPARIN 40 MG/0.4 ML SYRINGE SQ SCH (09:00)
[2022-06-11] MEDS: METOPROLOL TARTRATE 12.5 MG TAB PO SCH ×2 (09:04→19:59)
[2022-06-11] MEDS: FAMOTIDINE 20 MG TAB PO SCH (09:05)
--- NOTE | 2022-06-11 09:35 | P.PN ---
Subjective Progress Note Date: 06/11/22 Principal diagnosis: Left hip femoral neck fracture Patient seen and examined at bedside today. He is currently sitting in a chair eating breakfast and is more alert today but still slightly disoriented but is able to tell me that he had his hip fixed yesterday. He states his hip feels much better now that the hip is fixed. He notes no issues overnight and has no other complaints at this time. Objective - Vital Signs Vital signs: Vital Signs Temp 98.2 F 06/11/22 07:19 Pulse 91 06/11/22 07:19 Resp 19 06/11/22 07:19 BP 114/72 06/11/22 07:19 Pulse Ox 94 L 06/11/22 07:19 FiO2 Intake & Output 06/10/22 06/11/22 06/11/22 18:59 06:59 18:59 Intake Total 2081 Output Total 500 690 Balance 1581 -690 Weight 72.575 kg Intake: IV 1601 Oral 480 Output: Urine 300 690 Uretheral (Brady) 300 Estimated Blood Loss 200 Other: Voiding Method Indwelling Catheter - Exam Left lower extremity: EHL, FHL, ankle plantarflexion, dorsiflexion 5 out of 5 strength. Sensation intact to light touch in the L2 to S1 nerve distribution. 2+ out of 4. Dorsal pedal pulses present. Lateral hip dressing clean, dry and intact with no signs of drainage. Compartments are soft and compressible. - Labs CBC & Chem 7: 06/10/22 06:23 06/10/22 06:23 Labs: Abnormal Lab Results - Last 24 Hours (Table) 06/10/22 06/10/22 Range/Units 06:23 06:23 Hgb 11.8 L (13.0-17.0) g/dL Hct 38.1 L (39.6-50.0) % MCH 26.7 L (27.0-32.0) pg MCHC 31.0 L (32.0-37.0) g/dL RDW 16.2 H (11.5-14.5) % PT 25.6 H (9.9-11.9) sec INR 2.34 H (0.90-1.11) Microbiology - Last 24 Hours (Table) 06/10/22 12:00 Urine Culture - Preliminary Urine,Catheterized Assessment and Plan Assessment: 1. Left hip femoral neck fracture status post left hip hemiarthroplasty, postop day 1. 2. Multiple medical comorbidities Plan: 1. Weight-bear as tolerated with walker. 2. DVT prophylaxis currently with Lovenox. Patient normally on Coumadin, will defer bridging back to Coumadin to internal medicine. 3. Pain management 4. GI prophylaxis - Pepcid 5. PT/OT - Freddy Barnett DO Orthopedic Surgeon Time with Patient: Less than 30
[2022-06-11 13:39] LABS: INR 3.7 (<1.2)
--- NOTE | 2022-06-11 16:14 | P.PN ---
Subjective Progress Note Date: 06/11/22 Patient is a 81-year-old male who is currently resides at [facility] the [facility] and brought to the hospital status post fall and left hip pain. Patient does have a history of chronic atrial fibrillation on anticoagulation with Coumadin, EPS with ablation, chronic CHF with mildly reduced systolic function ejection fraction 45 to 50%, COPD, history of facial carcinoma removed, hypertension, hyperlipidemia, GERD, pneumonia, BPH, and cognitive impairment and prior history of smoking. Patient was complaining of severe hip pain on admission. After the fall patient is not able to get back up. He was trying to use a walker to walk but then fell. Patient usually ambulates with a cane as per her daughter. Patient did fall on the back of his head but denies any loss of consciousness. Patient was given IV morphine and IM morphine in the ER. Currently patient is not arousable but usually communicates with the family at baseline. Hip x-ray showed impacted subcapital left femoral neck fracture. No left hip dislocation. CT head showed no acute intracranial process. Chest x-ray showed no acute pulmonary process. Laboratory pressure WBC 5.7 hemoglobin 13.3 and platelets 225 INR 1.9 Sodium 137 potassium 3.9 chloride 104 bicarb is 29 BUN 2020 creatinine 1.28, blood sugar 103 calcium 7.9 [place] is not elevated albumin 3.3. Baseline creatinine level 0.97. 06/10/2022 Patient is evaluated today postoperative left hip hemiarthroplasty for femoral neck fracture with Dr. Barnett. Reports minimal pain. He is resting in bed with family at bedside. Indwelling catheter has been inserted overnight. Pending evaluation by PT/OT. INR today 2.34 and he is resumed on warfarin. Preoperative urinalysis showing turbid urine with moderate blood, large leukocyte esterase, many WBCs, moderate bacteria. Urine culture is requested. He denies any dysuria urgency burning. Remains afebrile. Blood pressure on the lower side low 100s to 90s systolic however heart rate in the high 90s. He is maintained on metoprolol BID. Creatinine improved to 0.96. 06/11/2022 Patient is evaluated today postoperative day #2 left hip hemiarthroplasty. He is evaluated today sitting up in the chair. Indwelling catheter remains in place with good urine output. Reports minimal pain. He has been weaned to room air, he has history of requiring oxygen outpatient. On dysphagia diet. Urine culture is showing gram negative bacilli. Currently with no IV access, he has not been receiving the cefazolin ordered by primary. INR 3.7 and has been resumed on warfarin dosed by pharmacy. Review of Systems Constitutional: Denied any fatigue denied any fever. Cardio vascular: denied any chest pain, palpitations Gastrointestinal: denied any nausea, vomiting, diarrhea Pulmonary: Denied any shortness of breath cough Neurologic denied any new focal deficits All inpatient medications were reviewed and appropriate changes in these m edications as dictated in the interval history and assessment and plan. PHYSICAL EXAMINATION: GENERAL: The patient is alert and oriented x3, not in any acute distress. Well developed, well nourished. on 3L nasal cannula HEENT: Pupils are round and equally reacting to light. EOMI. No scleral icterus. No conjunctival pallor. Normocephalic, atraumatic. No pharyngeal erythema. No thyromegaly. CARDIOVASCULAR: S1 and S2 present. No murmurs, rubs, or gallops. PULMONARY: Coarse scattered rhonchi ABDOMEN: Soft, nontender, nondistended, normoactive bowel sounds. No palpable organomegaly. MUSCULOSKELETAL: No joint swelling or deformity. EXTREMITIES: No cyanosis, clubbing, or pedal edema. NEUROLOGICAL: Gross neurological examination did not reveal any focal deficits. SKIN: No rashes. Post surgical left hip dressing in place. Assessment and Plan Assessment Status post fall and left hip femoral neck impacted fracture. No hip dislocation. postoperative day #2 left hip hemiarthroplasty Acute urinary tract infection without sepsis present on admission, culture showing gram negative bacilli pending final culture. Likely asymptomatic bacteriurea patient has no white count, no complaints of dysuria. Chronic atrial fibrillation on anticoagulation with Coumadin Chronic hypoxic respiratory failure with oxygen as needed currently on room air History of EPS with ablation chronic CHF with mildly reduced systolic function ejection fraction 45 to 50%. Acute kidney injury likely prerenal. Baseline creatinine 0.9, resolved. Hypertension Currently low normal blood pressure. History of COPD no acute exacerbation at this time History of TIA Hyperlipidemia Dementia BPH GERD History of facial cancer removed Chronic cervical pain with radiculopathy Chronic back pain Prior history of smoking DVT prophylaxis on warfarin INR today 2.3 Do Not Resuscitate/Do Not Intubate Plan: Pending final urine culture If unable to obtain IV access patient will be started on oral antibiotics Echocardiogram is pending, cardiology following. Patient will be continued on telemetry monitoring. Continue duo nebs and Symbicort inhalation. Encourage incentive spirometry PT/OT consultation pending at this time Will continue to follow and further recommendations based on clinical course. [facility] The impression and plan of care has been dictated by Becca Fair, Nurse Practitioner as directed. Dr. Nita MD I have performed a history and physical examination and medical decision making of this patient, discussed the same with the dictator, and agree with the dictators assessment and plan as written, documented as a scribe. Based on total visit time, I have performed more than 50% of this visit. Objective - Vital Signs Vital signs: Vital Signs Temp 97.2 F L 06/11/22 14:00 Pulse 124 H 06/11/22 14:00 Resp 19 06/11/22 14:00 BP 108/59 06/11/22 14:00 Pulse Ox 92 L 06/11/22 14:00 FiO2 Intake & Output 06/10/22 06/11/22 06/11/22 18:59 06:59 18:59 Intake Total 2081 Output Total 500 690 150 Balance 1581 -690 -150 Weight 72.575 kg Intake: IV 1601 Oral 480 Output: Urine 300 690 150 Uretheral (Brady) 300 Estimated Blood Loss 200 Other: Voiding Method Indwelling Catheter Indwelling Catheter - Labs CBC & Chem 7: 06/10/22 06:23 06/10/22 06:23 Labs: Abnormal Lab Results - Last 24 Hours (Table) 06/11/22 Range/Units 13:09 PT 36.0 H (9.0-12.0) sec INR 3.7 H (<1.2) Microbiology - Last 24 Hours (Table) 06/10/22 12:00 Urine Culture - Preliminary Urine,Catheterized Gram Neg Bacilli Assessment and Plan Time with Patient: Less than 30
[2022-06-11] MEDS ORDERED: WARFARIN 0.5 MG TAB PO ONE (18:00)
[2022-06-11] MEDS: ATORVASTATIN 20 MG TAB PO SCH (19:59)
[2022-06-11] MEDS: TAMSULOSIN 0.4 MG CAP.ER.24H PO SCH (19:59)
[2022-06-12] MEDS: HYDROcodone/APAP 5-325MG 1 EACH TAB PO PRN (01:45)
[2022-06-12] MEDS: PANTOPRAZOLE 40 MG TABLET PO SCH (05:58)
[2022-06-12 07:18] LABS: INR 2.6 (<1.2); Prothrombin Time 25.4 sec (9.0-12.0)
[2022-06-12] MEDS: FAMOTIDINE 20 MG TAB PO SCH (08:29)
[2022-06-12] MEDS: METOPROLOL TARTRATE 12.5 MG TAB PO SCH ×2 (08:30→20:31)
[2022-06-12] MEDS: IPRATROPIUM-ALBUTEROL 3 ML NEB INHALATION PRN (09:04)
[2022-06-12] MEDS: SYMBICORT 160-4.5 MCG INHALER INHALATION SCH ×2 (09:05→22:13)
[2022-06-12 09:06] LABS: Basophils # (A) 0.05 X 10*3/uL (0.00-0.10); Basophils % (A) 0.5 %; Eosinophils # (A) 0.26 X 10*3/uL (0.04-0.35); Eosinophils % (A) 2.4 %; HCT 31.6 % (39.6-50.0); Immature Grans, Automated 0.8 %; Lymphocytes # (A) 1.76 X 10*3/uL (0.90-5.00); Lymphocytes % (A) 16.6 %; MCH 26.5 pg (27.0-32.0); MCHC 31.6 g/dL (32.0-37.0); MCV 83.8 fL (80.0-97.0); Mean Platelet Volume 10.6 fL (9.5-12.2); Monocytes # (A) 0.74 X 10*3/uL (0.20-1.00); NRBC Per 100 WBC 0 /100 WBCS (0.0-0.0); Neutrophils # (A) 7.73 X 10*3/uL (1.80-7.70); Neutrophils % (A) 72.7 %; Platelet Count 215 X 10*3/uL (140-440); RBC 3.77 X 10*6/uL (4.40-5.60); RDW 16.1 % (11.5-14.5); WBC 10.62 X 10*3/uL (4.50-10.00)
--- NOTE | 2022-06-12 09:17 | P.PN ---
Subjective Progress Note Date: 06/12/22 Principal diagnosis: Left hip femoral neck fracture Patient seen and examined at bedside today. He is currently sitting in bed, less alert today but opens eyes and wiggles toes to verbal stimuli. IV access established. Objective - Vital Signs Vital signs: Vital Signs Temp 97.5 F L 06/12/22 07:46 Pulse 100 06/12/22 09:06 Resp 16 06/12/22 07:46 BP 96/56 06/12/22 07:46 Pulse Ox 98 06/12/22 09:06 FiO2 Intake & Output 06/11/22 06/12/22 06/12/22 18:59 06:59 18:59 Intake Total 960 Output Total 300 Balance -300 960 Intake: Oral 960 Output: Urine 300 Uretheral (Brady) 150 Other: Voiding Method Indwelling Catheter Bedside Commode Diaper # Bowel Movements 0 1 - Exam Left lower extremity: EHL, FHL, ankle plantarflexion, dorsiflexion 5 out of 5 strength. Sensation intact to light touch in the L2 to S1 nerve distribution. 2+ out of 4. Dorsal pedal pulses present. Lateral hip dressing clean, dry and intact with no signs of drainage. Compartments are soft and compressible. - Labs CBC & Chem 7: 06/12/22 06:41 06/10/22 06:23 Labs: Abnormal Lab Results - Last 24 Hours (Table) 06/11/22 06/12/22 06/12/22 Range/Units 13:09 06:41 06:41 WBC 10.62 H (4.50-10.00) X 10*3/uL RBC 3.77 L (4.40-5.60) X 10*6/uL Hgb 10.0 L (13.0-17.0) g/dL Hct 31.6 L (39.6-50.0) % MCH 26.5 L (27.0-32.0) pg MCHC 31.6 L (32.0-37.0) g/dL RDW 16.1 H (11.5-14.5) % Immature Gran # 0.08 H (0.00-0.04) X 10*3/uL Neutrophils # 7.73 H (1.80-7.70) X 10*3/uL PT 36.0 H 25.4 H (9.0-12.0) sec INR 3.7 H 2.6 H (<1.2) Microbiology - Last 24 Hours (Table) 06/10/22 12:00 Urine Culture - Preliminary Urine,Catheterized Gram Neg Bacilli Assessment and Plan Assessment: 1. Left hip femoral neck fracture status post left hip hemiarthroplasty, postop day 1. 2. Multiple medical comorbidities Plan: 1. Weight-bear as tolerated with walker. 2. DVT prophylaxis. Patient is now back on Coumadin. 3. Pain management 4. GI prophylaxis - Pepcid 5. PT/OT 6.) Orthopedically stable. - Freddy Barnett DO Orthopedic Surgeon
[2022-06-12] MEDS: IPRATROPIUM-ALBUTEROL 3 ML NEB INHALATION SCH ×3 (12:23→22:13)
--- NOTE | 2022-06-12 13:57 | CA ---
Transthoracic Echo Report Name: Georges Rockwell Age: 81 Gender: M : 1940 Exam Date: 06/12/2022 08:51 Exam Location: [place] [facility] Ht (in): 72 Wt (lb): 159 Ordering Physician: Renetta John DO Attending/Referring Phys: [id number], [place] [facility] [employer] Reyna Benitez RDCS Procedure CPT: Indications: pre-operative eval Cardiac Hx: Technical Quality: Contrast 1: Total Dose (mL): Contrast 2: Total Dose (mL): MEASUREMENTS (Male / Female) Normal Values 2D ECHO LV Diastolic Diameter PLAX 5.4 cm 4.2 - 5.9 / 3.9 - 5.3 cm LV Systolic Diameter PLAX 3.8 cm IVS Diastolic Thickness 1.0 cm 0.6 - 1.0 / 0.6 - 0.9 cm LVPW Diastolic Thickness 1.3 cm 0.6 - 1.0 / 0.6 - 0.9 cm LV Relative Wall Thickness 0.4 RV Internal Dim ED PLAX 2.6 cm LA Systolic Diameter LX 5.4 cm 3.0 - 4.0 / 2.7 - 3.8 cm LA Volume 74.2 cm??? 18 - 58 / 22 - 52 cm??? M-MODE Aortic Root Diameter MM 4.2 cm LA Systolic Diameter MM 4.8 cm LA Ao Ratio MM 1.2 MV E Point Septal Separation 1.3 cm DOPPLER MV Area PHT 3.9 cm??? Mitral E Point Velocity 90.6 cm/s Mitral A Point Velocity 25.5 cm/s Mitral E to A Ratio 3.5 MV Deceleration Time 195.0 ms MV E' Velocity 7.4 cm/s Mitral E to MV E' Ratio 12.2 TR Peak Velocity 248.4 cm/s TR Peak Gradient 24.7 mmHg Right Ventricular Systolic Press 29.7 mmHg FINDINGS Left Ventricle Low-normal left ventricular systolic function with EF of around 50% Right Ventricle Normal right ventricular size and function. Right ventricular systolic pressure within normal limits. Right Atrium Normal right atrial size. Left Atrium Severely increased left atrial diameter. Moderately increased left atrial volume. Mitral Valve Structurally normal mitral valve. Mild mitral regurgitation. Aortic Valve The aortic valve is poorly visualized. Tricuspid Valve Structurally normal tricuspid valve. Mild tricuspid regurgitation. Pulmonic Valve Pulmonic valve not well visualized. Pericardium Normal pericardium. Aorta Aortic Root is mildly dilated and measures 4.1cm. CONCLUSIONS Low-normal left ventricular systolic function was EF at 50% Aortic sclerosis. The aortic valve poorly visualized. Mild aortic insufficiency seen. Thickened anterior and posterior mitral leaflets was mild to moderate mitral regurgitation Previewed by: Dr. Milan Eduardo MD (Electronically Signed) Final Date: 12 June 2022 13:56
--- NOTE | 2022-06-12 16:17 | PN ---
PROGRESS NOTE DATE OF SERVICE: 06/12/2022 SUBJECTIVE: This is an 81-year-old gentleman, who was admitted after a fall and left hip fracture. He had a surgery. No chest pain. No palpitations. No fever. OBJECTIVE: VITAL SIGNS: Pulse is 96, blood pressure 96/53, respirations 16. CHEST: Clear to auscultation. ABDOMEN: Soft. NERVOUS SYSTEM: Diffusely weak. LABORATORY DATA: Reviewed. INR 2.6. UA shows possible UTI. ASSESSMENT: 1. Status post fall and left hip fracture. 2. Acute urinary tract infection with Klebsiella oxytoca. 3. Chronic atrial fibrillation. 4. Chronic hypoxic respiratory failure. 5. Chronic congestive heart failure. RECOMMENDATION: Recommend to continue current medications and symptomatic treatment. Otherwise, as mentioned earlier, Klebsiella oxytoca was grown from the culture. The patient is on cefazolin. We will continue to monitor. Further recommendations to follow. Repeat labs. MMODL / IJN: [id number] /
[2022-06-12] MEDS: SODIUM CHLORIDE 0.9% 1,000 ML IV SCH (16:56)
[2022-06-12] MEDS ORDERED: WARFARIN 3 MG TAB PO ONE (18:00)
[2022-06-12] MEDS: TAMSULOSIN 0.4 MG CAP.ER.24H PO SCH (20:31)
[2022-06-12] MEDS: ATORVASTATIN 20 MG TAB PO SCH (20:31)
[2022-06-13] MEDS: HYDROcodone/APAP 5-325MG 1 EACH TAB PO PRN (01:37)
[2022-06-13] MEDS: PANTOPRAZOLE 40 MG TABLET PO SCH (05:30)
[2022-06-13] MEDS: SYMBICORT 160-4.5 MCG INHALER INHALATION SCH ×2 (07:59→08:14)
[2022-06-13] MEDS: IPRATROPIUM-ALBUTEROL 3 ML NEB INHALATION SCH ×2 (07:59→12:33)
[2022-06-13] MEDS: FAMOTIDINE 20 MG TAB PO SCH (08:37)
[2022-06-13] MEDS: METOPROLOL TARTRATE 12.5 MG TAB PO SCH (08:37)
[2022-06-13 10:15] LABS: Basophils # (A) 0.03 X 10*3/uL (0.00-0.10); Basophils % (A) 0.3 %; Eosinophils # (A) 0.32 X 10*3/uL (0.04-0.35); Eosinophils % (A) 3.1 %; HCT 33.4 % (39.6-50.0); HGB 10.5 g/dL (13.0-17.0); Immature Grans, Automated 0.6 %; Lymphocytes # (A) 2.28 X 10*3/uL (0.90-5.00); Lymphocytes % (A) 22.2 %; MCH 27.2 pg (27.0-32.0); MCHC 31.4 g/dL (32.0-37.0); MCV 86.5 fL (80.0-97.0); Monocytes # (A) 0.72 X 10*3/uL (0.20-1.00); NRBC Per 100 WBC 0 /100 WBCS (0.0-0.0); Neutrophils # (A) 6.84 X 10*3/uL (1.80-7.70); Neutrophils % (A) 66.8 %; Platelet Count 239 X 10*3/uL (140-440); RBC 3.86 X 10*6/uL (4.40-5.60); RDW 16.2 % (11.5-14.5); WBC 10.25 X 10*3/uL (4.50-10.00)
--- NOTE | 2022-06-13 10:19 | P.PN ---
Subjective Progress Note Date: 06/13/22 Principal diagnosis: left hip femoral neck fracture patient was seen at bedside this morning lying semirecumbent position sleeping. Patient was nonverbal and only responds to painful stimuli. Patient does wince in pain when incision over left hip was palpated. Patient denies chest pain, fever, shortness of breath, nausea, vomiting, change in vision, loss of bowel/bladder control. Objective - Vital Signs Vital signs: Vital Signs Temp 98.6 F 06/13/22 08:00 Pulse 88 06/13/22 08:15 Resp 20 06/13/22 08:00 BP 110/67 06/13/22 08:00 Pulse Ox 95 06/13/22 08:02 FiO2 Intake & Output 06/12/22 06/13/22 06/13/22 18:59 06:59 18:59 Intake Total 480 Output Total 500 215 Balance -20 -215 Intake: Oral 480 Output: Urine 500 215 Straight 500 215 Post Void Residual 0 Stool 0 Other: Voiding Method Diaper Diaper # Voids 0 # Bowel Movements 1 - Exam Inspection: Incision CDI. Dressing in place. Negative for any fluctuance/purulence. Negative for any active drainage. some ecchymoses present over left hip Sensation: Sensation is equal, symmetric, bilaterally intact throughout the upper and lower extremity. Range of motion: Patient does have limited range of motion in left hip in flexion/extension and left knee in flexion and extension due to injury/pain. Patient is able to wiggle digits in bilateral lower extremities on exam. Patient does have full range of motion right lower extremity in knee flexion/extension and right hip flexion/extension. Patient has full range of motion bilateral upper extremities on exam Motor: 4+/5 in all major motor groups in bilateral upper extremities and right lower extremity on exam. Left lower extremity exam limited due to injury. Palpation: Some mild tenderness to palpation along the left elbow. fair amount of TTP over incision on lef hip. Neurovascular status: Radial pulse intact, 2+ bilaterally. Cap refill under 3 s econds in digits of her extremities. Dorsalis pedis pulse present, weak Special tests: Negative Homans bilaterally. - Labs CBC & Chem 7: 06/13/22 08:30 06/10/22 06:23 Labs: Microbiology - Last 24 Hours (Table) 06/10/22 12:00 Urine Culture - Final Urine,Catheterized Klebsiella oxytoca Assessment and Plan Assessment: 1. Left hip femoral neck fracture status post fall - postoperative day #3 status post left hip hemiarthroplasty Plan: 1. Left hip femoral neck fracture - patient stable at bedside this morning. WBAT LLE. Incision CDI. Maintain dressing. Discharge to [facility] when bed available. 2. Appreciate medical and cardiac management 3. Pain management - tylenol; norco 4. DVT prophylaxis - Coumadin 5. GI prophylaxis - Pepcid; maalox; protonix 6. PT/OT - weightbearing as tolerated left lower extremity 7. Encourage incentive spirometer use 8. Discharge planning -to [facility] within next couple days Time with Patient: Less than 30
[2022-06-13 10:21] LABS: African American GFR (CKD) 92.5 (60.0-200.0); Anion Gap 7.4 mmol/L (10.00-18.00); BUN/Creat Ratio 20.33 Ratio (12.00-20.00); Blood Urea Nitrogen 18.3 mg/dL (9.0-27.0); Calcium 7.4 mg/dL (8.7-10.3); Carbon Dioxide 27.6 mmol/L (20.0-27.5); Non-African American GFR(CKD) 79.8 (60.0-200.0); Potassium 3.4 mmol/L (3.5-5.5)
[2022-06-13 10:34] LABS: INR 2.46 (0.90-1.11); Prothrombin Time 26.9 sec (9.9-11.9)
--- NOTE | 2022-06-13 11:40 | P.DS ---
Providers Date of admission: 06/09/22 07:00 Expected date of discharge: 06/13/22 Attending physician: Freddy Barnett DO Consults: 06/09/22 07:00 Consult Physician Routine Consulting Provider: Osmin King Reason/Comments: Medical management Do you want consulting provider notified?: Yes Primary care physician: Johnathan Bustillos Hospital Course: Date of admission: 06/09/2022 Date of discharge: 06/13/2022 Admission diagnosis: Left hip femoral neck fracture Discharge diagnosis: same Attending physician: Dr. Barnett Surgical procedures: Left hip hemiarthroplasty Brief history: Patient is a 81-year-old male with a history of femoral neck fracture status post fall. At this point patient has failed conservative treatment measures and has opted to proceed with a elective left hip hemiarthroplasty. Hospital course: Details of patient's surgery can be found in operative report. Patient tolerated the procedure well and was subsequently transported to orthopedic floor. Patient's orthopeidc and medical care was provided daily. Patient had daily laboratory tests performed for evaluation of overall blood counts. Patient had daily physical therapy to include strengthening range of motion as well as education with walker ambulation. Patient was treated with Coumadin for their postoperative DVT prophylaxis during their inpatient stay. Patient was noted to have a relatively uneventful postoperative course. Patient reported satisfactory pain control with oral pain medications by postoperative day 3. Patient showed satisfactory progress with physical therapy. Patient moved steadily through the program and had no difficulty meeting the goals by postoperative day 3. Given patient's otherwise satisfactory course and having met physical therapy goals, plan is to discharge patient [facility] on postoperative day 3. Discharge condition/disposition: Patient will be discharged to [facility] in stable condition. Discharge medications: Instructions are given on resumption of patient's normal daily medications per primary care recommendation, in addition patient will be prescribed [place] 5 mg/325mg; senna; resume Coumadin. Discharge instructions: 1. Wound care and infection precautions, keep incision dry and covered while showering, no lotions, creams, moisturizers. No soaking, tubs, pools, hottubs. Do not scrub over the incision. 2. Weight-bear as tolerated with walker until follow-up. 3. Ice and elevate when necessary. Do not exceed 20 minutes per hour with ice pack 4. Nursing care. 5. Daily physical therapy. 6. Pain meds and anticoagulants per prescription. 7. Pain medication has potential to cause constipation. Increase oral fluid and fiber intake. Contact primary care provider if you have not had a bowel movement within 48 hours after discharge 8. No anti-inflammatory medication until discussed at first post operative visit, this including Motrin, Aleve, Mobic, Diclofenac. 9. Follow up in office at [address] Freddy Barnett. 10. Follow up with your primary care doctor 7-10 days after discharge. 11. Contact [facility] with any questions, . Assessment: Left hip femoral neck fracture Procedures: Left hip hemiarthroplasty Patient Condition at Discharge: Good Plan - Discharge Summary New Discharge Prescriptions: New HYDROcodone/APAP 5-325MG [[place]on 5-325] 1 tab PO Q6HR PRN #24 tab PRN Reason: Pain Sennosides/Docusate Sodium [Senna Plus 8.6-50 mg Softgel] 1 each PO DAILY #20 capsule No Action dilTIAZem HCL [dilTIAZem HCL 24Hr ER (CD)] 120 mg PO DAILY Acetaminophen Tab [Tylenol] 650 mg PO Q6HR PRN tab PRN Reason: Mild Pain Or Fever >= 100.5 Albuterol Inhaler [Ventolin Hfa Inhaler] 1 puff INHALATION RT-Q4H PRN PRN Reason: Shortness Of Breath Tamsulosin [Flomax] 0.4 mg PO HS Ipratropium-Albuterol Nebulize [Duoneb 0.5 mg-3 mg/3 ml Soln] 3 ml INHALATION RT-Q4H PRN PRN Reason: Shortness Of Breath Or Wheezing Metoprolol Tartrate [Lopressor] 25 mg PO BID Furosemide [Lasix] 20 mg PO DAILY@0600 Aspirin 81 mg PO DAILY tab Sennosides/Docusate Sodium [Senna Plus 8.6-50 mg Tablet] 2 tab PO Q72H PRN PRN Reason: Constipation Menthol [Biofreeze] 1 applic TOPICAL QID PRN PRN Reason: Pain Warfarin [Coumadin] 3 mg PO SUTUWEFRSA@1700 Optifoam 1 applic TOPICAL Q3D Pantoprazole [Protonix] 40 mg PO DAILY@0600 Atorvastatin [Lipitor] 20 mg PO HS tab Budesonide-Formot 160-4.5 Mcg [Symbicort 160-4.5 Mcg Inhaler] 2 puff INHALATION RT-BID gm Warfarin [Coumadin] 5 mg PO MOTH@1700 Cyanocobalamin [Vitamin B-12] 500 mcg PO DAILY tab Zguard 1 applic TOPICAL Q3D Calcium Carb-Vit D 500Mg-5Mcg [Oscal 500+D 5 Mcg (200 Iu)] 1 tab PO BID Discharge Medication List dilTIAZem HCL [dilTIAZem HCL 24Hr ER (CD)] 120 mg PO DAILY 04/04/18 [History] Acetaminophen Tab [Tylenol] 650 mg PO Q6HR PRN tab 07/07/20 [Rx] Albuterol Inhaler [Ventolin Hfa Inhaler] 1 puff INHALATION RT-Q4H PRN 08/26/20 [History] Tamsulosin [Flomax] 0.4 mg PO HS 08/26/20 [History] Ipratropium-Albuterol Nebulize [Duoneb 0.5 mg-3 mg/3 ml Soln] 3 ml INHALATION RT-Q4H PRN 06/08/21 [History] Metoprolol Tartrate [Lopressor] 25 mg PO BID 06/08/21 [History] Furosemide [Lasix] 20 mg PO DAILY@0600 06/25/21 [History] Pantoprazole [Protonix] 40 mg PO DAILY@0600 06/25/21 [History] Aspirin 81 mg PO DAILY tab 06/28/21 [Rx] Atorvastatin [Lipitor] 20 mg PO HS tab 06/28/21 [Rx] Budesonide-Formot 160-4.5 Mcg [Symbicort 160-4.5 Mcg Inhaler] 2 puff INHALATION RT-BID gm 07/21/21 [Rx] Sennosides/Docusate Sodium [Senna Plus 8.6-50 mg Tablet] 2 tab PO Q72H PRN 10/09 07/02 [History] Warfarin [Coumadin] 5 mg PO MOTH@1700 10/19/21 [History] Cyanocobalamin [Vitamin B-12] 500 mcg PO DAILY tab 10/22/21 [Rx] Zguard 1 applic TOPICAL Q3D 11/18/21 [History] Calcium Carb-Vit D 500Mg-5Mcg [Oscal 500+D 5 Mcg (200 Iu)] 1 tab PO BID 06/09/22 [History] Menthol [Biofreeze] 1 applic TOPICAL QID PRN 06/09/22 [History] Optifoam 1 applic TOPICAL Q3D 06/09/22 [History] Warfarin [Coumadin] 3 mg PO SUTUWEFRSA@1700 06/09/22 [History] HYDROcodone/APAP 5-325MG [[place] 5-325] 1 tab PO Q6HR PRN #24 tab 06/13/22 [Rx] Sennosides/Docusate Sodium [Senna Plus 8.6-50 mg Softgel] 1 each PO DAILY #20 capsule 06/13/22 [Rx] Follow up Appointment(s)/Referral(s): Freddy Barnett DO [Doctor of Osteopathic Medicine] - 2 Weeks Johnathan Bustillos MD [Primary Care Provider] - 1-2 days [facility], [NON-STAFF] - As Needed Patient Instructions/Handouts: Hip Abduction Pillow (DC) Activity/Diet/Wound Care/Special Instructions: Discharge instructions: 1. Wound care and infection precautions, keep incision dry and covered while showering, no lotions, creams, moisturizers. No soaking, tubs, pools, hottubs. D o not scrub over the incision. 2. Weight-bear as tolerated with walker until follow-up. 3. Ice and elevate when necessary. Do not exceed 20 minutes per hour with ice pack 4. Nursing care. 5. Daily physical therapy. 6. Pain meds and anticoagulants per prescription. 7. Pain medication has potential to cause constipation. Increase oral fluid and fiber intake. Contact primary care provider if you have not had a bowel movement within 48 hours after discharge 8. No anti-inflammatory medication until discussed at first post operative visit, this including Motrin, Aleve, Mobic, Diclofenac. 9. Follow up in office at [address] Freddy Barnett. 10. Follow up with your primary care doctor 7-10 days after discharge. 11. Contact [facility] with any questions, . Discharge Disposition: TRANSFER TO SNF/ECF
[2022-06-13 14:08] VITALS: BP 113/68; PULSE 101; RESP 16; TEMP 97.7
[2022-06-13] MEDS ORDERED: WARFARIN 3 MG TAB PO ONE (18:00)
--- NOTE | 2022-06-13 19:27 | PN ---
PROGRESS NOTE DATE OF SERVICE: 06/13/2022 SUBJECTIVE: This is an 81-year-old gentleman who was admitted after falling with left hip fracture, also had acute UTI. No chest pain, no palpitations, no fever. PHYSICAL EXAMINATION: VITAL SIGNS: Pulse is 101, blood pressure 113/60, respirations 16. HEENT: Conjunctivae normal. NECK: No jugular venous distention. CARDIOVASCULAR: S1, S2. RESPIRATIONS: Diminished at the basis. ABDOMEN: Soft. LEGS: Status post surgery. LABS: WBC 10.2, hemoglobin 10.6, other labs are noted. ASSESSMENT: 1. Status post fall and left hip fracture. 2. Acute urinary tract infection with Klebsiella oxytoca. 3. Chronic atrial fibrillation. 4. Chronic hypoxic respiratory failure. 5. Congestive heart failure history. RECOMMENDATIONS: Recommended to continue current management and continue symptomatic treatment. Repeat labs in the morning. The rest of the recommendations per Orthopedic surgery. Further recommendations to follow. MMODL / IJN: [id number] /
== END 2022-06-13 14:18 | DRG 522 ==
LOC: EC 05:15 → 4SSUR 07:00
PROVIDERS: ADMIT Orthopaedic Surgery Hand Surgery; ATTEND Orthopaedic Surgery Hand Surgery
PROC: 0SRS0JZ Replacement of Left Hip Joint, Femoral Surface with Synthetic Substitute, Open Approach (ICD-10-PCS; principal; 2022-06-10 08:00)
DX: S72.012A Unspecified intracapsular fracture of left femur, initial encounter for closed fracture (principal); N17.9 Acute kidney failure, unspecified; I48.19 Other persistent atrial fibrillation; I50.22 Chronic systolic (congestive) heart failure; N39.0 Urinary tract infection, site not specified; J96.11 Chronic respiratory failure with hypoxia; Z99.81 Dependence on supplemental oxygen; F03.90 Unspecified dementia, unspecified severity, without behavioral disturbance, psychotic disturbance, mood disturbance, and anxiety; I11.0 Hypertensive heart disease with heart failure; E78.5 Hyperlipidemia, unspecified; M54.12 Radiculopathy, cervical region; B96.1 Klebsiella pneumoniae [K. pneumoniae] as the cause of diseases classified elsewhere; I69.321 Dysphasia following cerebral infarction; J44.9 Chronic obstructive pulmonary disease, unspecified; I71.40 Abdominal aortic aneurysm, without rupture, unspecified; R29.6 Repeated falls; M54.9 Dorsalgia, unspecified; I08.3 Combined rheumatic disorders of mitral, aortic and tricuspid valves; G89.29 Other chronic pain; N40.0 Benign prostatic hyperplasia without lower urinary tract symptoms; K21.9 Gastro-esophageal reflux disease without esophagitis; Z66 Do not resuscitate; W18.30XA Fall on same level, unspecified, initial encounter; Z87.891 Personal history of nicotine dependence; Z98.1 Arthrodesis status; Z91.81 History of falling; Z79.899 Other long term (current) drug therapy; Z79.01 Long term (current) use of anticoagulants; Z79.82 Long term (current) use of aspirin; Z79.51 Long term (current) use of inhaled steroids
CPT/HCPCS: 36415; 70450; 71045; 73501; 73502; 80048; 80053; 81001; 84484; 85025; 85610; 85730; 87086; 88305; 88311; 93306; 94640; 94760; 96361; 96374; 99285